=== PATIENT | male | born 1965 | race Caucasian/White ===

== ENCOUNTER 2023-02-07 12:18 | Emergency (ER) | payer MEDICAID, SELFPAY ==
[2023-02-07 12:31] VITALS: BP 155/68; PULSE 61; RESP 18; TEMP 36.7; O2SAT 97; BMI 27.2
--- NOTE | 2023-02-07 12:40 | ED_ITS ---
Documented by User: NUHA Glez 02/08/23 07:11 HPI - General Adult General: Chief complaint: General Medical Stated complaint: Just needs meds refilled Time Seen by Provider: 02/07/23 12:39 History of Present Illness: Patient is a 57-year-old male comes to the ED in need of medication refill. Patient is from [facility] but just moved to the area. He ran out of his Xarelto prescription and needs a refill. Patient says his last dose of Xarelto was taken on Sunday so this is the second day he is went without Xarelto. He has not gotten established with a PCP here since moving. Patient also states that he has chronic wounds on his legs bilaterally that he has been having wound care clinic up in [facility] had been treating for years. Denies any fevers, chest pain, shortness of breath or any change in chronic leg wounds. Endorses some bilateral lower leg swelling. Denies any current symptoms. Associated symptoms: Deny chest pain, dyspnea, headache(s), nausea, rash, palpitations or vomiting Review of Systems Const: Denies: fever(s), chills or fatigue Eyes: Denies: change in vision or eye discomfort ENMT: Denies: throat pain, odynophagia, nasal discharge or nasal congestion Card: Denies: chest pain, palpitations, edema, swelling of feet/ankles, dyspnea on exertion or orthopnea Resp: Denies: dyspnea, productive cough or non-productive cough GI: Denies: abdominal pain, nausea, vomiting, diarrhea, constipation or hematochezia : Denies: flank pain, difficulty urinating, dysuria or hematuria Musc: Reports: extremity swelling (Bilateral lower leg swelling); Denies: neck pain or back pain Skin/Breast: Denies: rash or new lesions Neuro: Denies: headache(s), numbness in extremities or weakness in extremities PFS ED PFSH: Medical History (Updated 02/08/23 @ 07:11 by NUHA Glez) CHF (congestive heart failure) Hypertension No pertinent family history Physical Exam Const: COMMON NORMALS: patient oriented x3 HENMT: COMMON NORMALS: normocephalic HEAD & SCALP: normocephalic MOUTH: Normal oral and palatal mucosa present THROAT: posterior oropharynx normal and uvula midline Neck/C-Spine: COMMON NORMALS: supple GENERAL: Yes normal visual inspection Resp: COMMON NORMALS: normal respiratory effort, No retractions, No use of accessory muscles and clear to auscultation bilaterally AUSCULTATION: clear to auscultation bilaterally Cardio: COMMON NORMALS: regular rate, regular rhythm, S1 normal heart sound present, S2 normal heart sound present, No gallops present (Cardio), No clicks present (Cardio), No murmurs present (Cardio) and Peripheral pulses 2+ throughout RATE: regular rate RHYTHM: regular rhythm HEART SOUNDS: S1 normal heart sound present and S2 normal heart sound present PERIPHERAL PULSES: Peripheral pulses 2+ throughout GI: COMMON NORMALS: Normal to inspection, nondistended, normoactive bowel sounds present, Soft to palpation, non-tender and no masses PALPATION: Yes Soft to palpation : COMMON NORMALS: Yes no CVA tenderness BLADDER/KIDNEY EXAM: Yes no CVA tenderness Back/Pelvis: COMMON NORMALS: no CVA tenderness Extremity: NARRATIVE EXTREMITY EXAM: Patient has chronic ulcerative type wounds on legs bilaterally. GENERAL: Yes edema (Bilateral lower extremity edema) Neuro: COMMON NORMALS: patient oriented x3 GAIT: Yes Normal gait present Skin: GENERAL SKIN EXAM: dry skin Course Vital Signs: Vital signs: Vital Signs Temperature 98.0 F 02/07/23 12:31 Pulse Rate 61 02/07/23 12:31 Respiratory Rate 18 02/07/23 12:31 Blood Pressure 155/68 02/07/23 12:31 Pulse Oximetry 97 02/07/23 12:31 MDM - General Adult Medical Decision Making Patient is a 57-year-old male comes to the ED in need of medication refill. Patient is from [facility] but just moved to the area. He ran out of his Xarelto prescription and needs a refill. Patient says his last dose of Xarelto was taken on Sunday so this is the second day he is went without Xarelto. He has not gotten established with a PCP here since moving. Patient also states that he has chronic wounds on his legs bilaterally that he has been having wound care clinic up in [facility] had been treating for years. Denies any fevers, chest pain, shortness of breath or any change in chronic leg wounds. Endorses some bilateral lower leg swelling. Denies any current symptoms. Vitals are stable. Patient does have some bilateral lower extremity edema along with chronic ulcerated wounds on legs bilaterally. He appears nontoxic in no acute distress or pain. Ultrasound venous duplex of the lower extremity showed some chronic DVTs in the an acute DVT in the popliteal bilaterally. Patient was given Lovenox shot here in the ED and discharged home with this prescription for Eliquis. I placed to case management orders for patient be set up with a PCP since he is new here in town and also to be set up with wound care clinic. Patient diagnosed with encounter for medication refill, DVT and chronic wounds on legs. Return to ED precautions given. Patient understood and agreed with plan. Discharge Plan Discharge Patient Disposition: Home Clinical Impression: Encounter for medication refill, Chronic wound of extremity DVT (deep venous thrombosis) Qualifiers: DVT location: lower extremity Affected thrombotic vein of extremity: popliteal Chronicity: acute Laterality: bilateral Qualified Code(s): I82.433 - Acute embolism and thrombosis of popliteal vein, bilateral Condition: Stable Prescriptions: New Eliquis 5 mg tablet 5 mg PO BID Qty: 60 0RF Rx Instructions: Take 2 tablets p.o. twice daily for 7 days. Then 1 tab PO BID. Discharge Orders: Discharge ED (Routine); Ordered 02/07/23 Ordered By: Kyler Yun Discharge Diet: Regular Discharge Activity: Increase activity as tolerated Patient Instructions: Deep Vein Thrombosis (DC) Activity Restrictions/Additional Instructions: Follow-up with medical provider as directed. Case management should be contacted in the next several days to set up an appointment with a primary care physician and wound care clinic. You can start taking your prescribed Eliquis tomorrow since you received a shot of Lovenox today in the emergency department. Take medications as prescribed. Return to the ER or your medical provider if condition worsens. Please read and understand discharge instructions. Thank you for choosing [facility] for your healthcare needs today. Please realize this is an emergency room and that we are providing you with a medical screening exam and this may not be complete and all inclusive of all the testing and or work up that you may need to determine your ailment or severity of your illness. It is very important that you follow up as instructed or that you return to the Emergency Department should you have concerns or if your condition changes or worsens in any way. Coding Level of Care Code ED Rig Superintendent for Cecily Wood Documented by User: Carlos Alberto Gómez DO 02/08/23 08:27 HPI - General Adult General: Chief complaint: General Medical Stated complaint: Just needs meds refilled Time Seen by Provider: 02/07/23 12:39 PFSH ED PFSH: Medical History (Updated 02/08/23 @ 07:11 by NUHA Glez) CHF (congestive heart failure) Hypertension No pertinent family history Course Vital Signs: Vital signs: Vital Signs Temperature 98.0 F 02/07/23 12:31 Pulse Rate 61 02/07/23 12:31 Respiratory Rate 18 02/07/23 12:31 Blood Pressure 155/68 02/07/23 12:31 Pulse Oximetry 97 02/07/23 12:31 MDM - General Adult Medical Decision Making Patient is a 57-year-old male comes to the ED in need of medication refill. Patient is from [facility] but just moved to the area. He ran out of his Xarelto prescription and needs a refill. Patient says his last dose of Xarelto was taken on Sunday so this is the second day he is went without Xarelto. He has not gotten established with a PCP here since moving. Patient also states that he has chronic wounds on his legs bilaterally that he has been having wound care clinic up in [facility] had been treating for years. Denies any fevers, chest pain, shortness of breath or any change in chronic leg wounds. Endorses some bilateral lower leg swelling. Denies any current symptoms. Vitals are stable. Patient does have some bilateral lower extremity edema along with chronic ulcerated wounds on legs bilaterally. He appears nontoxic in no acute distress or pain. Ultrasound venous duplex of the lower extremity showed some chronic DVTs in the an acute DVT in the popliteal bilaterally. Patient was given Lovenox shot here in the ED and discharged home with this prescription for Eliquis. I placed to case management orders for patient be set up with a PCP since he is new here in town and also to be set up with wound care clinic. Patient diagnosed with encounter for medication refill, DVT and chronic wounds on legs. Return to ED precautions given. Patient understood and agreed with plan. Chart reviewed and patient discussed with midlevel. Agree with assessment and plan. Discharge Plan Discharge Patient Disposition: Home Clinical Impression: Encounter for medication refill, Chronic wound of extremity DVT (deep venous thrombosis) Qualifiers: DVT location: lower extremity Affected thrombotic vein of extremity: popliteal Chronicity: acute Laterality: bilateral Qualified Code(s): I82.433 - Acute embolism and thrombosis of popliteal vein, bilateral Condition: Stable Prescriptions: New Eliquis 5 mg tablet 5 mg PO BID Qty: 60 0RF Rx Instructions: Take 2 tablets p.o. twice daily for 7 days. Then 1 tab PO BID. Discharge Orders: Discharge ED (Routine); Ordered 02/07/23 Ordered By: Kyler uYn Discharge Diet: Regular Discharge Activity: Increase activity as tolerated Patient Instructions: Deep Vein Thrombosis (DC) Activity Restrictions/Additional Instructions: Follow-up with medical provider as directed. Case management should be contacted in the next several days to set up an appointment with a primary care physician and wound care clinic. You can start taking your prescribed Eliquis tomorrow since you received a shot of Lovenox today in the emergency department. Take medications as prescribed. Return to the ER or your medical provider if condition worsens. Please read and understand discharge instructions. Thank you for choosing [facility] for your healthcare needs today. Please realize this is an emergency room and that we are providing you with a medical screening exam and this may not be complete and all inclusive of all the testing and or work up that you may need to determine your ailment or severity of your illness. It is very important that you follow up as instructed or that you return to the Emergency Department should you have concerns or if your condition changes or worsens in any way. Coding Level of Care Code ED Rig Superintendent for Cecily Wood
--- NOTE | 2023-02-07 13:07 | USCV_ITS ---
Andrew Ruggiero Age: 57 Gender: M : 1965 Exam Date: 02/07/2023 14:00 Ordering Phys: Kyler Yun Technologist: CT Exam Location: [facility]_ Indication: hx of dvt, swelling PROCEDURES: The venous duplex Doppler examination of both lower extremities was performed in the standard fashion. In addition, the posterior tibial and peroneal trunk were evaluated. FINDINGS: Evidence of acute bilateral occlusive deep vein thrombosis in the right popliteal vein into the peroneal veins with abnormal flow dynamics. The remaining deep venous systems are negative. Bilateral superficial thrombophlebitis GSV's. Wall thickening with small caliber lumen. Chronic thrombophlebitis. CONCLUSIONS Acute, occlusive bilateral DVT popliteal and peroneal veins. Probable chronic superficial thrombophlebits bilateral GSV's. Dr. Viola Saenz DO (Electronically Signed) Final Date: 07 Feb 2023 15:41 S
--- NOTE | 2023-02-07 15:15 | PC.NURSE ---
Patient seen in the ED on 02/07/23. Referral to wound care for bilateral wounds on legs. Message sent to clinic to contact patient for an appt.
[2023-02-07] MEDS: enoxaparin 120 mg/0.8 mL Syringe SUBCUT (16:21)
--- NOTE | 2023-02-08 10:06 | DCPLANNER ---
Addendum entered by Nicolette Valladares 02/19/23 11:02: Patient had a follow up appointment at wound care - patient did attend appointment. Addendum entered by Nicolette Valladares 02/09/23 10:10: Patient has a follow up appointment scheduled for Sunday, February 14, 2023 at 2:[address] Griffin at [facility]. Original Note: client service and consulting manager called patient due to no primary care physician. Patient would like help in getting established with a primary care physician but states that his aunt is going to help him get established with a provider.
== END 2023-02-07 16:37 | disposition home or self-care (01) ==
PROVIDERS: Emergency Provider Physician Assistant
DX: Z76.0 Encounter for issue of repeat prescription (principal); L97.929 Non-pressure chronic ulcer of unspecified part of left lower leg with unspecified severity; L97.919 Non-pressure chronic ulcer of unspecified part of right lower leg with unspecified severity; I82.433 Acute embolism and thrombosis of popliteal vein, bilateral; I82.453 Acute embolism and thrombosis of peroneal vein, bilateral
CPT/HCPCS: 93970; 96372; 99284; J1650

== ENCOUNTER → 2023-02-23 10:08 | Outpatient (BNVA) | payer MEDICAID, SELFPAY | PROVIDERS: Visit Provider Thoracic Surgery (Cardiothoracic Vascular Surgery) | DX: E11.52 Type 2 diabetes mellitus with diabetic peripheral angiopathy with gangrene (principal); E11.622 Type 2 diabetes mellitus with other skin ulcer; L97.812 Non-pressure chronic ulcer of other part of right lower leg with fat layer exposed; L97.822 Non-pressure chronic ulcer of other part of left lower leg with fat layer exposed | CPT/HCPCS: 11042; 11045 ==

== ENCOUNTER 2023-02-28 07:33 | Inpatient (IN) | payer MEDICAID, SELFPAY ==
[2023-02-28] VITALS (78 sets, daily range): BP systolic 68–137; BP diastolic 46–112; PULSE 74–169; RESP 6–63; TEMP 36.2–37.9; O2SAT 70–100; BMI 26.6
--- NOTE | 2023-02-28 07:44 | ECG_ITS ---
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 Measurements Intervals [place] Rate: 116 P: 0 TX: 0 QRS: 61 QRSD: 152 T: 243 QT: 341 QTc: 475 Interpretive Statements ATRIAL FIBRILLATION WITH RAPID VENTRICULAR RESPONSE LEFT BUNDLE BRANCH BLOCK [120+ ms QRS DURATION, 80+ ms Q/S IN V1/V2, 85+ ms R IN I/aVL/V5/V6] No previous ECG available for comparison Electronically Signed On 02-28-2023 12:28:55 CDT by Ismael Sue M.D. [id number]
--- NOTE | 2023-02-28 08:09 | XRR_ITS ---
PROCEDURE INFORMATION: Exam: XR Chest Exam date and time: 02/28/2023 8:15 AM Age: 57 years old Clinical indication: Cough and dyspnea; Prior surgery; Surgery date: 6+ months; Surgery type: Pacer; Additional info: Dyspnea/cough TECHNIQUE: Imaging protocol: Radiologic exam of the chest. Views: 1 view. COMPARISON: No relevant prior studies available. FINDINGS: Tubes, catheters and devices: AICD. Lungs: Hypoinflation, without significant airspace disease. Pleural spaces: Mild pleural thickening. Heart/Mediastinum: Borderline cardiomegaly. Bones/joints: Mild degenerative change. XR/XR chest 1V portable [id number] IMPRESSION: Borderline cardiomegaly and AICD.
[2023-02-28] MEDS: metoprolol succinate ER (24 HR) 50 mg Tablet PO ×2 (08:20→11:04)
[2023-02-28] MEDS: metoprolol tartrate 1 mg/1 mL SDV 5 mL 5 MG IVP ×2 (08:20→11:04)
--- NOTE | 2023-02-28 08:30 | PC.PHAR ---
pt states his aunt alondra [phone] sets his medications up-pt brought in medication bottles with him pt brought in metoprolol succinate er 100mg take 50mg bid dated 11/08/22 and also another bottle dated 06/16/22 200mg daily and someone wrote bid on the bottle alondra states the pt is taking the 50mg bid-rx bottle dated 01/23/23 lasix 40mg takes 80mg qam and 40mg afternoon alondra states she sets it up as 40mg qam and 80mg hs-midodrine 10mg take 5mg tid dated 11/08/22 and spironolactone 25mg daily dated 06/13/22 were empty but alondra states pt is still taking-notes are made in the pharmacy comments
[2023-02-28 09:50] LABS: Alanine Aminotransferase 11 U/L (0-41); Albumin Level 3.1 g/dL (3.5-5.2); Alkaline Phosphatase 60 U/L (40-130); Blood Urea Nitrogen 14 mg/dL (6-20); Calcium 8.2 mg/dL (8.5-10.5); Carbon Dioxide 15 mmol/L (22-29); Chloride 105 mmol/L (98-107); Globulin 4.2 g/dL (1.3-4.6); Glucose 135 mg/dL (65-115); NT Pro B Type Natriuretic Pept 4271 pg/mL (0-125); Osmolality Calculated 279 mOsm/kg (285-295); Sodium 133 mmol/L (136-145); Total Bilirubin 0.6 mg/dL (0.15-1.2); Total Protein 7.3 g/dL (6.6-8.7)
[2023-02-28 09:52] LABS: Aspartate Amino Transferase 19 U/L (0-40)
--- NOTE | 2023-02-28 10:24 | W.ED.ARRPALP ---
HPI - Arrhythmia/Palpitations General: Chief Complaint: ER Hold Stated Complaint: unresponsive now responsive Time Seen by Provider: 02/28/23 07:46 Source: patient Mode of arrival: EMS History of Present Illness: 57-year-old male who presents to the emergency room with complaints of syncopal episode. He gotten up and began trying to walk he states his legs felt really weak. Patient fell and was reported as unresponsive. He was unresponsive when EMS initially arrived but then began responding. They noted he was in A-fib with RVR and he was given 20 mg of Cardizem his heart rate dropped he was given another dose of IV push Cardizem 15 minutes later due to recurrence of A-fib with RVR on arrival here he is still moderately tachycardic in the 120s and 130s occasionally. Patient states he has no chest pain or shortness of breath he does not recall feeling a shock. He is awake and alert. He did not take any of his medications today he has multiple medications in a bag we had difficult time confirming what his dose actually is 1 metoprolol bottle says 200 twice a day he states he is actually been taking half of 100 mg tablet twice a day. MD complaint: rapid heart beat and heart racing Associated symptoms: Reports syncope; Deny anxiety, cough, diaphoresis, muscle cramps, nausea, paresthesias, pre-syncope, sense of impending doom, short of breath or vomiting Review of Systems Const: Denies: fever(s), chills, fatigue, malaise or diaphoresis ENMT: Denies: throat pain, ear or mastoid pain, nasal discharge or nasal congestion Card: Reports: palpitations, irregular heart rhythm, edema, swelling of feet/ankles and syncope; Denies: chest pain or pre-syncope Resp: Denies: dyspnea, productive cough or non-productive cough GI: Denies: abdominal pain, nausea or vomiting : Denies: flank pain, dysuria, urinary frequency or urinary urgency Musc: Denies: neck pain, back pain or muscle cramps Skin/Breast: Reports: non-healing lesions (Bilateral lower extremity ulcers chronic); Denies: rash or pruritus Psych: Denies: anxiety PFSH ED PFSH: Medical History Atrial fibrillation CHF (congestive heart failure) Hypertension No pertinent family history Non-insulin dependent type 2 diabetes mellitus Peripheral vascular disease Surgical History History of implantable cardioverter-defibrillator (ICD) placement Family History Mother CAD (coronary artery disease) Social History Smoking and tobacco status: former smoker Alcohol intake: current Substance/Drug Use: current Substance/Drug use type: Marijuana Physical Exam Const: GENERAL APPEARANCE: cooperative and comfortable ORIENTATION/CONSCIOUSNESS: Yes awake, Yes oriented to person, Yes oriented to place and Yes oriented to time HENMT: COMMON NORMALS: normocephalic, atraumatic and hearing grossly normal bilaterally HEAD & SCALP: normocephalic and atraumatic Resp: COMMON NORMALS: normal respiratory effort, No retractions, No use of accessory muscles and clear to auscultation bilaterally AUSCULTATION: clear to auscultation bilaterally Cardio: RATE: tachycardic RHYTHM: abnormal rhythm irregularly irregular GI: COMMON NORMALS: Soft to palpation and No hepatosplenomegaly present AUSCULTATION: Yes normoactive bowel sounds PALPATION: Yes Soft to palpation, No Tenderness to palpation present (GI), No Guarding due to palpation present (GI) and Yes No hepatosplenomegaly present Extremity: COMMON NORMALS: normal to inspection, capillary refill normal, no clubbing, cyanosis or edema, no calf tenderness and no pedal edema Neuro: SENSORIUM/ORIENTATION: Yes oriented to person, Yes oriented to place and Yes oriented to time Skin: COMMON NORMALS: no rashes or lesions noted GENERAL SKIN EXAM: no rashes or lesions noted Course Vital Signs: Vital signs: Vital Signs Temperature 97.7 F 02/28/23 07:34 Pulse Rate 128 H 02/28/23 13:15 Respiratory Rate 26 H 02/28/23 13:15 Blood Pressure 88/60 02/28/23 13:15 Pulse Oximetry 100 02/28/23 13:15 Oxygen Delivery Me thod Room Air 02/28/23 13:13 MDM - Arrhythmia/Palpitations Medical Decision Making Serial troponins negative BNP elevated. Patient continues to have A-fib but rate still elevated. Bundle branch block on EKG. No recent EKGs there is one from 2011 he is not in A-fib at that time. He is not having any chest pain. Patient not taking his usual medications at home there are some question as to what doses he was asked on could not really give us clarification. Gave him IV metoprolol and a dose of his metoprolol succinate we monitored him for a time he did not have any significant lowering of his heart rate. He had been given Cardizem IV push in the field and had significant hypotension develop from that. I repeated the IV and p.o. metoprolol without significant improvement and started on a Cardizem drip without bolus. Better control role of rate was achieved. He currently is having rates around 110s at times slightly higher with any activity. Leg ulcers appear chronic, do not appear to be acutely infected. Patient has ICD we are currently awaiting identifying which manufacture he has. Interrogation planned. Will admit. Discussed with hospitalist orders written. Medical Records I reviewed the patient's medical records. Lab Data I reviewed the patient's lab results. 02/28/23 10:25 02/28/23 09:03 Radiology Impressions Chest X-Ray 02/28/23 08:09 IMPRESSION: Borderline cardiomegaly and AICD. Laboratory Results WBC 8.9 10^3/uL (4.0-10.0) 02/28/23 10:25 RBC 4.89 10^6/uL (4.1-5.3) 02/28/23 10:25 Hgb 13.3 g/dL (11.7-16.6) 02/28/23 10:25 Hct 42.0 % (42.0-52.0) 02/28/23 10:25 MCV 85.9 fl (80-94) 02/28/23 10:25 MCH 27.2 pg (28.0-34.0) L 02/28/23 10:25 MCHC 31.7 g/dL (30.0-36.0) 02/28/23 10:25 RDW 12.1 % (12.1-15.1) 02/28/23 10:25 Plt Count 197 10^3/cmm (130-400) 02/28/23 10:25 MPV 10.6 fL (7.4-10.4) H 02/28/23 10:25 Neut % (Auto) 72.9 % 02/28/23 10:25 Lymph % (Auto) 20.4 % 02/28/23 10:25 [place] % (Auto) 4.4 % 02/28/23 10:25 Eos % (Auto) 1.4 % 02/28/23 10:25 Baso % (Auto) 0.6 % 02/28/23 10:25 Neut # (Auto) 6.46 10^3/uL (1.8-7.7) 02/28/23 10:25 Lymph # (Auto) 1.8 10^3/uL (0.8-4.8) 02/28/23 10:25 [place] # (Auto) 0.4 10^3/uL (0.2-0.9) 02/28/23 10:25 Eos # (Auto) 0.1 10^3/uL (0.0-0.8) 02/28/23 10:25 Baso # (Auto) 0.1 10^3/uL (0.0-0.1) 02/28/23 10:25 Nucleated RBC % (auto) 0 % 02/28/23 10:25 Nucleated RBCs # 0.0 /100WBC 02/28/23 10:25 PT 14.80 SECONDS (12.1-14.9) 02/28/23 10:25 INR 1.13 (0.8-1.2) 02/28/23 10:25 Sodium 133 mmol/L (136-145) L 02/28/23 09:03 Potassium 4.0 mmol/L (3.5-5.1) 02/28/23 09:03 Chloride 105 mmol/L (98-107) 02/28/23 09:03 Carbon Dioxide 15 mmol/L (22-29) L 02/28/23 09:03 Anion Gap 17.0 (5-19) 02/28/23 09:03 BUN 14 mg/dL (6-20) 02/28/23 09:03 Creatinine 0.8 mg/dL (0.7-1.2) 02/28/23 09:03 GFR Calculation 100.0 mL/min (90-130) 02/28/23 09:03 Glucose 135 mg/dL (65-115) H 02/28/23 09:03 Estimat Average Glucose 137 02/28/23 10:25 Hemoglobin A1c 6.4 % (4.0-6.0) H 02/28/23 10:25 Calculated Osmolality 279 mOsm/kg (285-295) L 02/28/23 09:03 Lactic Acid 1.1 mmol/L (0.5-2.2) 02/28/23 10:25 Calcium 8.2 mg/dL (8.5-10.5) L 02/28/23 09:03 Magnesium 1.6 mg/dL (1.7-2.3) L 02/28/23 10:25 Total Bilirubin 0.6 mg/dL (0.15-1.2) 02/28/23 09:03 AST 19 U/L (0-40) 02/28/23 09:03 ALT 11 U/L (0-41) 02/28/23 09:03 Alkaline Phosphatase 60 U/L (40-130) 02/28/23 09:03 Troponin T Baseline 27 ng/L (0-15) H 02/28/23 10:25 NT-Pro-B Natriuret Pep 4271 pg/mL (0-125) H 02/28/23 09:03 Total Protein 7.3 g/dL (6.6-8.7) 02/28/23 09:03 Albumin 3.1 g/dL (3.5-5.2) L 02/28/23 09:03 Globulin 4.2 g/dL (1.3-4.6) 02/28/23 09:03 Triglycerides 52 mg/dL (0-150) 02/28/23 10:25 Cholesterol 60 mg/dL (0-200) 02/28/23 10:25 LDL Cholesterol, Calc 28 mg/dL (50-129) L 02/28/23 10:25 HDL Cholesterol 22 mg/dL (60-100) L 02/28/23 10:25 LDL/HDL Ratio 1.27 RATIO (0.00-3.22) 02/28/23 10:25 Cholesterol/HDL Ratio 2.73 mg/dL (1.0-5.00) 02/28/23 10:25 Procalcitonin 0.07 ng/mL (0-0.5) 02/28/23 10:25 TSH 3.59 uIU/mL (0.27-4.20) 02/28/23 10:25 Urine Color Yellow (Yellow) 02/28/23 09:09 Urine Appearance Clear (CLEAR) 02/28/23 09:09 Urine pH 5 (5-7) 02/28/23 09:09 Ur Specific [place] 1.020 (1.005-1.030) 02/28/23 09:09 Urine Protein Trace (Negative) 02/28/23 09:09 Urine Glucose (UA) Norm (Normal) 02/28/23 09:09 Urine Ketones 1+ (Negative) H 02/28/23 09:09 Urine Blood Trace (Negative) H 02/28/23 09:09 Urine Nitrate Negative (Negative) 02/28/23 09:09 Urine Bilirubin Neg (Negative) 02/28/23 09:09 Urine Urobilinogen 1 mg/dL (Negative) H 02/28/23 09:09 Ur Leukocyte Esterase Negative (Negative) 02/28/23 09:09 Urine RBC None /hpf (0-2) 02/28/23 09:09 Urine WBC Rare /hpf (0-5) 02/28/23 09:09 Ur Squamous Epith Cells Rare /hpf (0-5) 02/28/23 09:09 Amorphous Sediment Not Reportable 02/28/23 09:09 Urine Bacteria 1+ /hpf (NONE) H 02/28/23 09:09 Hyaline Casts 0-4 /lpf H 02/28/23 09:09 Fine Granular Casts 0-4 /lpf H 02/28/23 09:09 Urine Mucus 2+ /hpf 02/28/23 09:09 Ethyl Alcohol < 10 mg/dL (0-10) 02/28/23 10:25 Discharge Plan Discharge Patient Disposition: Admitted As Inpatient Admit Provider: Davey Chaney Clinical Impression: Atrial fibrillation with RVR, Syncope and collapse, Diabetic leg ulcer Condition: Stable Coding Level of Care Code ED Emergency Room Technician for Cecily Wood
[2023-02-28 10:30] LABS: Urine Appearance Clear (CLEAR); Urine Color Yellow (Yellow)
[2023-02-28 10:31] LABS: Add Urine Microscopic? YES; Bilirubin Urine Neg (Negative); Blood Urine Trace (Negative); Glucose Urine UA Norm (Normal); Ketones Urine 1+ (Negative); Leukocyte Esterase Urine Negative (Negative); Nitrate Urine Negative (Negative); Protein Urine Trace (Negative); Urobilinogen Urine 1 mg/dL (Negative); pH Urine 5 (5-7)
[2023-02-28 10:32] LABS: Add Urine Culture? No; Bacteria Urine 1+ /hpf; Fine Granular Casts Urine 0-4 /lpf; Hyaline Casts Urine 0-4 /lpf; Mucus Urine 2+ /hpf; Squamous Epithelial Cell Urine RARE /hpf (0-5); WBC Urine RARE /hpf (0-5)
[2023-02-28 10:42] LABS: Basophils # 0.1 10^3/uL (0.0-0.1); Basophils % 0.6 %; Eosinophils # 0.1 10^3/uL (0.0-0.8); Eosinophils % 1.4 %; Hemoglobin 13.3 g/dL (11.7-16.6); Lymphocytes # 1.8 10^3/uL (0.8-4.8); Lymphocytes % 20.4 %; Mean Corpuscular HGB Conc 31.7 g/dL (30.0-36.0); Mean Corpuscular Hemoglobin 27.2 pg (28.0-34.0); Mean Corpuscular Volume 85.9 fl (80-94); Mean Platelet Volume 10.6 fL (7.4-10.4); Monocytes # 0.4 10^3/uL (0.2-0.9); Monocytes % 4.4 %; Neutrophils # 6.46 10^3/uL (1.8-7.7); Neutrophils % 72.9 %; Nucleated Red Blood Cells % 0 %; Platelet Count 197 10^3/cmm (130-400); Red Blood Count 4.89 10^6/uL (4.1-5.3); Red Cell Distribution Width 12.1 % (12.1-15.1); White Blood Count 8.9 10^3/uL (4.0-10.0)
[2023-02-28] MEDS: dilTIAZem 100 MG in sodium chloride 0.9% (add-van) 100 ML IV ×2 (11:05→19:00)
--- NOTE | 2023-02-28 11:08 | ECG_ITS ---
[facility] Test Date: 2023-02-28 Pat Name: Andrew Ruggiero Department: Room: Gender: Male Associate Director Of Sales: : 1965 Requested By: Davey Chaney Order Number: [id number] Wilner MD: Ismael Sue M.D. Measurements Intervals [place] Rate: 134 P: 0 MA: 0 QRS: 50 QRSD: 156 T: 214 QT: 347 QTc: 519 Interpretive Statements ATRIAL FIBRILLATION WITH RAPID VENTRICULAR RESPONSE LEFT BUNDLE BRANCH BLOCK [120+ ms QRS DURATION, 80+ ms Q/S IN V1/V2, 85+ ms R IN I/aVL/V5/V6] Compared to ECG 02/28/2023 07:41:04 No significant changes Electronically Signed On 02-28-2023 12:28:36 CDT by Ismael Sue M.D. [id number]
--- NOTE | 2023-02-28 11:13 | USCV_ITS ---
Andrew Ruggiero Age: 57 Gender: M : 1965 Exam Date: 02/28/2023 22:52 Ordering Phys: Davey Chaney MD Technologist: NEGIN [place] [facility] [place]: Atrial fibrillation with RVR in ER. s/p PICC line. No BP on monitor in ICU5, [facility], unresponsive BP: / HR: 76 Rhythm: Sinus Technical Quality: Adequate MEASUREMENTS (Male / Female) Normal Values 2D ECHO LV Diastolic Diameter PLAX 5.2 cm 4.2 - 5.9 / 3.9 - 5.3 cm LV Systolic Diameter PLAX 4.9 cm IVS Diastolic Thickness 1.6 cm 0.6 - 1.0 / 0.6 - 0.9 cm IVS Systolic Thickness 1.8 cm LVPW Diastolic Thickness 1.2 cm 0.6 - 1.0 / 0.6 - 0.9 cm LVPW Systolic Thickness 1.3 cm LVOT Diameter 2.2 cm LV Ejection Fraction 2D Teich 14.4 % LV Ejection Fraction MOD 2C 28.7 % LV Ejection Fraction 2C AL 30.6 % LA Diameter 4.4 cm LA Width 5.3 cm LA Height 6.7 cm RA Width 3.2 cm RA Height 4.1 cm Aorta at Sinotubular Diameter 2.5 cm IVC Diameter 2.4 cm M-MODE Aortic Annulus Diameter 3.2 cm LA Ao Ratio MM 1.4 MV E Point Septal Separation 3.0 cm DOPPLER AV Peak Velocity 110.0 cm/s LVOT Peak Velocity 98.0 cm/s AV Area Cont Eq vti 3.3 cm squared AV Area Cont Eq pk 3.3 cm squared MV Peak Velocity 104.0 cm/s MV Area PHT 3.3 cm squared Mitral E to A Ratio 0.8 MV E' Velocity 40.5 cm/s Mitral E to MV E' Ratio 21.2 Mitral E to LV E' Lateral Ratio 17.0 Mitral E to LV E' Septal Ratio 29.4 TR Peak Velocity 284.7 cm/s TR Peak Gradient 32.4 mmHg TV Peak E Velocity 35.0 cm/s Right Atrial Pressure 10.0 mmHg Pulmonary Artery Systolic Pressu 42.4 mmHg PV Peak Velocity 53.0 cm/s RV Acceleration Time 0.1 s RV Ejection Time 0.3 s RV AcT/ET 0.4 FINDINGS Left Ventricle Left ventricle is dilated. LV systolic function is severely reduced with EF of 15-20%. Severe global hypokinesis seen. Grade 1 diastolic dysfunction Right Ventricle RV is moderate to severely hypokinetic.Pacemaker lead is seen Right Atrium The right atrium is normal in size. Pacemaker lead is seen Left Atrium Dilated Mitral Valve Grossly normal. Mild mitral regurgitation. Aortic Valve Grossly normal. No significant stenosis or regurgitation. Tricuspid Valve Mild tricuspid regurgitation. RVSP is 35-40mmHg. This is consistent with moderate pulmonary hypertension. Pulmonic Valve Not well visualized Pericardium Normal pericardium without effusion. Aorta Normal ascending aorta dimension. IVC Dilated CONCLUSIONS Left ventricle is dilated. LV systolic function is severely reduced with EF of 15-20%. RV is moderate to severely hypokinetic. Dilated Mild mitral regurgitation. Mild tricuspid regurgitation moderate pulmonary hypertension. IVC is dilated No comparison studies are available Ismael Sue MD (Electronically Signed) Final Date: 01 March 2023 18:45 S
[2023-02-28 11:40] LABS: INR 1.13 (0.8-1.2)
[2023-02-28 11:41] LABS: Glucose Point of Care 123 mg/dL (70-110)
[2023-02-28 11:41] LABS: Lactic Sepsis W/Reflex 1.1 mmol/L (0.5-2.2)
[2023-02-28 11:46] LABS: Troponin(5th) Baseline 27 ng/L (0-15)
[2023-02-28 11:52] LABS: Estmated Average Glucose 137; Hemoglobin A1C 6.4 % (4.0-6.0)
[2023-02-28 11:54] LABS: Procalcitonin 0.07 ng/mL (0-0.5); Thyroid Stimulating Hormone 3.59 uIU/mL (0.27-4.20)
[2023-02-28 12:04] LABS: Chol HDL Ratio 2.73 mg/dL (1.0-5.00); Cholesterol 60 mg/dL (0-200); HDL Cholesterol 22 mg/dL (60-100); LDL Cholesterol Calculated 28 mg/dL (50-129); LDL HDL Ratio 1.27 RATIO (0.00-3.22); Magnesium 1.6 mg/dL (1.7-2.3); Triglycerides 52 mg/dL (0-150)
[2023-02-28 12:07] LABS: Alcohol Level < 10 mg/dL (0-10)
[2023-02-28 12:31] LABS: Troponin 5 2HR 26.04 ng/L (0-15); Troponin 5 2HR Delta -0.96 ABS# (0-10)
--- NOTE | 2023-02-28 12:55 | PM.HP ---
Providers/Chief Complaint Admitting Physician: Davey Chaney MD Chief Complaint: unresponsive now responsive History of Present Illness Andrew Ruggiero is a 57 year old male with a past medical history of CHF, systolic, ICD in place, denies a history of CAD, history of atrial fibrillation on Eliquis, history of noninsulin-dependent type 2 diabetes mellitus, smoker, hypertension, hyperlipidemia, on Entresto, history of abdominal wall hernia history of chronic diabetic foot ulcers, history of diabetic neuropathy, who presents to [facility] due to feeling lightheaded and dizzy this morning. He tells me that he is originally from [place], he recently moved to [place] to be with his family for the last month, this morning he tells me that he already has diabetic ulcers on his bilateral shins, but this morning his leg felt weak, more swollen, he felt short of breath, he tells me that at 1 point when he got up he lost consciousness, he thinks he might of had an syncopal episode, but he does not remember the event, denies any chest pain, denies any palpitations, denies his ICD going off, when EMS arrived to his home, he was unresponsive, but began responding, he is found to be in A-fib with RVR, given 20 mg of Cardizem, he was given another IV push of Cardizem, on arrival, patient with heart rates 120s to 130s, atrial fibrillation, he does not remember being shocked, does not remember having chest pain, or palpitations, but does feel short of breath does have lower extremity edema, he is not sure how much metoprolol he is taking there is some discrepancy in how much metoprolol he should be taking. He was started on the Cardizem drip, hospitalist team was called for admission, on arrival, currently patient's systolics are in the 110s, diastolic in 80s, heart rates in the 110s, atrial fibrillation, nursing staff are attempting to interrogate pacemaker, he is alert awake, following all commands, he tells me that roughly a few months ago, his pacemaker did go off, and he remembers that significantly he does not feel like it went off this time, he complains of lower extremity edema, feeling short of breath, he is also hungry he wants to eat something he has not eaten anything this morning he tells me Review of Systems Const: Denies: fever(s) or chills Eyes: Denies: change in vision ENMT: Denies: throat pain Card: Denies: chest pain or palpitations Resp: Reports: dyspnea GI: Denies: abdominal pain : Denies: flank pain Musc: Denies: neck pain or back pain Neuro: Denies: headache(s), numbness in extremities, weakness in extremities or dizziness Medications/Allergies Home Medications Medication Instructions Recorded Confirmed Last Taken Type apixaban 5 mg tablet (Eliquis) 5 mg PO BID #60 tabs 02/07/23 02/28/23 Unknown Rx aspirin 81 mg tablet,delayed 81 mg PO DAILY 02/28/23 02/28/23 Unknown History release atorvastatin 10 mg tablet (Lipitor) 10 mg PO DAILY 02/28/23 02/28/23 Unknown History docusate sodium 100 mg capsule 100 mg PO BID 02/28/23 02/28/23 Unknown History (Stool Softener) furosemide 40 mg tablet (Lasix) See Rx Instructions .Route .COMPLEX 02/28/23 02/28/23 Unknown History metformin 500 mg tablet 500 mg PO BID 02/28/23 02/28/23 Unknown History metoprolol succinate 100 mg 50 mg PO BID 02/28/23 02/28/23 Unknown History tablet,extended release 24 hr midodrine 10 mg tablet 5 mg PO TID 02/28/23 02/28/23 Unknown History potassium chloride 20 mEq 20 meq PO BID 02/28/23 02/28/23 Unknown History tablet,extended release sacubitril 49 mg-valsartan 51 mg 1 tab PO BID 02/28/23 02/28/23 Unknown History tablet (Entresto) spironolactone 25 mg tablet 25 mg PO DAILY 02/28/23 02/28/23 Unknown History Allergies Allergy/AdvReac Type Severity Reaction Status Date / Time No Known Allergies Allergy Verified 02/28/23 07:45 PFSH Acute PFSH: Medical History (Updated 02/28/23 @ 13:15 by Davey Chaney MD) Atrial fibrillation CHF (congestive heart failure) Hypertension No pertinent family history Non-insulin dependent type 2 diabetes mellitus Peripheral vascular disease Surgical History (Updated 02/28/23 @ 13:09 by Davey Chaney MD) History of implantable cardioverter-defibrillator (ICD) placement Family History (Updated 02/28/23 @ 13:09 by Davey Chaney MD) Mother CAD (coronary artery disease) Social History (Updated 02/28/23 @ 13:09 by Davey Chaney MD) Smoking and tobacco status: former smoker Alcohol intake: current Substance/Drug Use: current Substance/Drug use type: Marijuana Vitals/I&O/Wt Last Vital Signs Temp 97.7 F 02/28/23 07:34 Pulse 134 H 02/28/23 11:30 Resp 17 02/28/23 11:30 BP 91/72 02/28/23 11:30 Pulse Ox 91 02/28/23 11:30 O2 Del Method Room Air 02/28/23 09:47 Weight last 48 hrs Weight 77.111 kg Physical Exam Const: COMMON NORMALS: no acute distress and patient oriented x3 GENERAL APPEARANCE: cooperative and well developed HENMT: COMMON NORMALS: normocephalic, Normal external nose present and oropharynx normal HEAD & SCALP: normocephalic FACE & SINUS: normal facial exam MOUTH: Normal oral and palatal mucosa present Eye: COMMON NORMALS: Equal, round and reactive pupils present, EOMs intact bilaterally, conjunctivae normal and no scleral icterus CONJUNCTIVA: Yes conjunctivae normal PUPIL: Yes Equal, round and reactive pupils present Neck/C-Spine: COMMON NORMALS: full ROM, no lymphadenopathy, no meningeal signs, no JVD, Thyroid normal and No carotid bruits THYROID: Thyroid normal Lymph: LYMPHATIC: no lymphadenopathy noted Chest: COMMONS NORMALS: normal inspection of the chest Resp: COMMON NORMALS: normal respiratory effort, No retractions, No use of accessory muscles and clear to auscultation bilaterally AUSCULTATION: crackles Cardio: COMMON NORMALS: S1 normal heart sound present, S2 normal heart sound present and No murmurs present (Cardio) RATE: tachycardic RHYTHM: abnormal rhythm irregularly irregular HEART SOUNDS: S1 normal heart sound present and S2 normal heart sound present GI: COMMON NORMALS: Normal to inspection, nondistended, normoactive bowel sounds present, Soft to palpation and non-tender PALPATION: Yes Soft to palpation and Yes No hepatosplenomegaly present : BLADDER/KIDNEY EXAM: Yes no CVA tenderness Back/Pelvis: COMMON NORMALS: no CVA tenderness Neuro: COMMON NORMALS: patient oriented x3, CN's II-XII intact bilaterally, moves all extremities and no focal motor deficits Psych: COMMON NORMALS: mental status grossly normal, Normal thought process present, cooperative and speech normal APPEARANCE: Yes well kempt SPEECH: Yes normal speech THOUGHT PROCESS: Normal thought process present Skin: COMMON NORMALS: no jaundice NARRATIVE SKIN EXAM: Bilateral shins -Has 1+ pitting edema -Bilateral shins have diabetic ulcers -More on the right measures 3 x 3 cm round, erythematous borders, serosanguineous discharge -The one of the left measures also 3 x 3 cm round, erythematous borders, serosanguineous discharge GENERAL SKIN EXAM: turgor normal Data 02/28/23 10:25 02/28/23 09:03 A&P Assessment and plan (1) Atrial fibrillation with RVR: (2) Syncope and collapse: (3) New onset left bundle branch block (LBBB): (4) Hypomagnesemia: (5) Hyperglycemia: (6) Systolic CHF, acute on chronic: (7) ICD (implantable cardioverter-defibrillator) discharge: (8) NSTEMI (non-ST elevated myocardial infarction): (9) Diabetic leg ulcer: (10) Goals of care, counseling/discussion: Plan A-fib with RVR -I rechecked patient roughly 30 minutes after initially examined him, blood pressures are 80s over 60s, he is alert and awake, heart rates are still in the 120s A-fib, on Cardizem drip at 15 -Stop Cardizem drip -Switch to amiodarone drip -Consulted cardiology Syncope and collapse -With possible ICD defibrillation, will await interrogation Hypomagnesemia -Replace IV mag NSTEMI -Type I versus type II -With new onset left bundle branch block, concerning for underlying CAD -Aspirin, statin, beta-kim -Heparin drip -Cardiac echo -Cardiology consulted New onset left bundle branch block, as above Diabetic leg ulcer -Bilateral diabetic sandoval ulcers -Wound care -Vancomycin, Zosyn -Ordered blood cultures -Consult general surgery for consideration of bedside debridement -We will order vascular studies Type 2 diabetes mellitus A1c, low-dose sliding scale Full code Heparin drip for DVT prophylaxis Spoke to ER doctor, spoke to cardiology, spoke to nursing staff, spoke to patient Attestations Medical Necessity Statement*: Patient requires hospitalization, inpatient, greater than 2 midnights, for A-fib with RVR, possible ICD shock, syncope and collapse, diabetic ulcers, hypomagnesemia Diagnoses Atrial fibrillation with RVR I48.91 Syncope and collapse R55 New onset left bundle branch block (LBBB) I44.7 Hypomagnesemia E83.42 Hyperglycemia R73.9 Systolic CHF, acute on chronic I50.23 ICD (implantable cardioverter-defibrillator) discharge Z45.02 NSTEMI (non-ST elevated myocardial infarction) I21.4 Diabetic leg ulcer E11.622; L97.909 Goals of care, counseling/discussion Z71.89
[2023-02-28] MEDS: FUROsemide 10 mg/mL SDV 4mL 40 MG IVP ×2 (13:04→16:06)
[2023-02-28] MEDS: pantoprazole 40 mg SDV IVP (13:04)
[2023-02-28] MEDS: piperacillin-tazobactam 3.375 GM in sodium chloride 0.9% (plus) 50 ML IV ×2 (13:05→20:58)
[2023-02-28] MEDS: magnesium sulfate premix 2 GM/50 ML PIGGYBACK IV (13:07)
--- NOTE | 2023-02-28 13:08 | ECG_ITS ---
[facility] Test Date: 2023-02-28 Pat Name: Andrew Ruggiero Department: Room: ED Gender: Male Exercise Instruct: : 1965 Requested By: Davey Chaney Order Number: [id number] Wilner MD: Ismael Sue M.D. Measurements Intervals [place] Rate: 131 P: 0 [place]: 0 QRS: 46 QRSD: 157 T: 222 QT: 349 QTc: 517 Interpretive Statements ATRIAL FIBRILLATION WITH RAPID VENTRICULAR RESPONSE LEFT BUNDLE BRANCH BLOCK [120+ ms QRS DURATION, 80+ ms Q/S IN V1/V2, 85+ ms R IN I/aVL/V5/V6] Compared to ECG 02/28/2023 11:33:24 No significant changes Electronically Signed On 02-28-2023 18:20:33 CDT by Ismael Sue M.D. [id number]
[2023-02-28] MEDS: vancomycin 1,250 MG/250 ML PIGGYBACK 250 MG IV (13:39)
--- NOTE | 2023-02-28 14:04 | USR_ITS ---
PROCEDURE INFORMATION: Exam: US Duplex Bilateral Lower Extremity Arteries Exam date and time: 02/28/2023 6:11 PM Age: 57 years old Clinical indication: Pain; Leg, lower; Bilateral; Additional info: Pvd, TECHNIQUE: Imaging protocol: Real-time ultrasound scan of the arteries of the bilateral lower extremities with 2-D bender scale, color Doppler flow and spectral waveform analysis. Images documented and saved. COMPARISON: No relevant prior studies available. FINDINGS: Right common femoral artery: No occlusion or significant stenosis. Normal waveform. PSV 55 cm/s Right superficial femoral artery: No occlusion or significant stenosis. Normal waveform. PSV 54 cm/s Right popliteal artery: No occlusion or significant stenosis. Normal waveform. PSV 22 cm/s Right calf/foot arteries: No occlusion or significant stenosis in the visualized arteries. Normal waveforms. Dorsalis pedis artery is patent. PSV 9.4 cm/s Left common femoral artery: No occlusion or significant stenosis. Normal waveform. PSV 48.7 cm/s Left superficial femoral artery: No occlusion or significant stenosis. Normal waveform. 60 cm/s 27 Left popliteal artery: No occlusion or significant stenosis. Normal waveform. 27 cm/s Left calf/foot arteries: No occlusion or significant stenosis in the visualized arteries. Normal waveforms. Dorsalis pedis artery is patent. PSV 9.4 cm/s, CORDAGE SALES REPRESENTATIVE 14.5 cm/s US/CV arterial duplex [facility] [id number] IMPRESSION: Diffuse severe nonocclusive vascular disease in the bilateral calf vessels bilaterally Otherwise No stenosis or occlusion.
[2023-02-28] MEDS: amiodarone 50 mg/mL SDV 3 mL 150 MG IVP ×2 (14:50→15:09)
[2023-02-28] MEDS: LORazepam 2 mg/mL INJ 1 mL IVP ×2 (15:09→16:06)
[2023-02-28 15:48] LABS: ABG PH Result 7.22 (7.35-7.45); Alveolar-Arterial Oxygen Gradi 23.2 mmHg (5-10); Arterial Blood Gas Hematocrit 54.2 % (42-52); Base Excess ABG -15.1 mmol/L (-2.0-2.0); Blood Gas Allen Test Pos; Blood Gas Operator Identificat AMH; Blood Gas Sample Site Radial, right; Blood Gas Sample Type Arterial; Carboxyhemoglobin 1.1 %THgb (0.4-20.1); HCO3 ABG 10.6 mmol/L (22-26); HGB O2 Sat 89.4 % (95-100); Ionized Calcium Level - ABG 1.2 mmol/L (1.1-1.4); Methemoglobin 0.4 % (0.4-1.5); Oxygen Device BIPAP; Oxygen Saturation ABG 90.8; PO2 ABG 70.5 mmHg (80.0-100.0); Total Hemoglobin 17.7 g/dL (14-18)
[2023-02-28] MEDS: haloperidol inj 5 mg/mL INJ 1 mL 1 MG IVP (16:06)
[2023-02-28] MEDS: levalbuterol 0.63 mg/3 mL Neb INHALATION (17:04)
[2023-02-28 17:06] LABS: Troponin 5 6HR 43.63 ng/L (0-15)
--- NOTE | 2023-02-28 17:08 | ECG_ITS ---
[facility] Test Date: 2023-02-28 Pat Name: Andrew Ruggiero Department: Room: [facility] Gender: Male Joy Loader: : 1965 Requested By: Davey Chaney Order Number: [id number] Wilner MD: Ismael Sue M.D. Measurements Intervals [place] Rate: 103 P: 66 SC: 143 QRS: 16 QRSD: 126 T: 100 QT: 368 QTc: 483 Interpretive Statements ELECTRONIC VENTRICULAR PACEMAKER Compared to ECG 02/28/2023 13:14:59 Atrial fibrillation no longer present Left bundle-branch block no longer present Electronically Signed On 02-28-2023 18:19:57 CDT by Ismael Sue M.D. [id number]
[2023-02-28 17:15] LABS: Troponin 5 6HR Delta 16.63 ng/L (0-12)
--- NOTE | 2023-02-28 17:20 | PM.CONSULT ---
Providers/Reason For Consult Consulting Physician/Specialty*: Ismael Sue MD/ Cardiology Reason for Consult*: Afib with RVR Requesting Physician: Dr Chaney Attending Physician: Davey Chaney MD History of Present Illness History of Present Illness Andrew Ruggiero is a 57 year old male with past medical history of congestive heart failure, afib presented to hospital with dizziness and lightheadedness. Patient also had shortness of breath. He was found to have A-fib with RVR. He was put on Cardizem drip. He has bilateral sandoval diabetic ulcers also. Review of Systems Const: Denies: fever(s) or chills Eyes: Denies: change in vision ENMT: Denies: throat pain Card: Denies: chest pain or palpitations Resp: Reports: dyspnea GI: Denies: abdominal pain : Denies: flank pain Musc: Denies: neck pain or back pain Neuro: Denies: headache(s), numbness in extremities, weakness in extremities or dizziness Medications/Allergies Home Medications Medication Instructions Recorded Confirmed Last Taken Type apixaban 5 mg tablet (Eliquis) 5 mg PO BID #60 tabs 02/07/23 02/28/23 Unknown Rx aspirin 81 mg tablet,delayed 81 mg PO DAILY 02/28/23 02/28/23 Unknown History release atorvastatin 10 mg tablet (Lipitor) 10 mg PO DAILY 02/28/23 02/28/23 Unknown History docusate sodium 100 mg capsule 100 mg PO BID 02/28/23 02/28/23 Unknown History (Stool Softener) furosemide 40 mg tablet (Lasix) See Rx Instructions .Route .COMPLEX 02/28/23 02/28/23 Unknown History metformin 500 mg tablet 500 mg PO BID 02/28/23 02/28/23 Unknown History metoprolol succinate 100 mg 50 mg PO BID 02/28/23 02/28/23 Unknown History tablet,extended release 24 hr midodrine 10 mg tablet 5 mg PO TID 02/28/23 02/28/23 Unknown History potassium chloride 20 mEq 20 meq PO BID 02/28/23 02/28/23 Unknown History tablet,extended release sacubitril 49 mg-valsartan 51 mg 1 tab PO BID 02/28/23 02/28/23 Unknown History tablet (Entresto) spironolactone 25 mg tablet 25 mg PO DAILY 02/28/23 02/28/23 Unknown History Allergies Allergy/AdvReac Type Severity Reaction Status Date / Time No Known Allergies Allergy Verified 02/28/23 07:45 Current Medications Generic Name Dose Route Start Last Admin Trade Name Freq PRN Reason Stop Dose Admin Furosemide 40 mg 02/28/23 11:30 02/28/23 13:04 Furosemide 10 Mg/Ml Sdv 4ml IVP 40 mg Q12H JERRY Administration Haloperidol Lactate 1 mg 02/28/23 15:45 02/28/23 16:06 Haloperidol Inj 5 Mg/Ml Inj 1 Ml IVP 1 mg Q4H PRN Administration AGITATION Vancomycin/PEG/NADA/Lysine/Water 1,250 mg in 250 mls @ 250 mls/hr 02/28/23 13:00 02/28/23 15:17 Vancocin IV Infused Q12H JERRY Infusion Piperacillin Sod/Tazobactam 50 mls @ 12.5 mls/hr 02/28/23 12:30 02/28/23 13:45 Sod 3.375 gm/ Sodium Chloride IV Infused Q8H JERRY Infusion Amiodarone HCl 900 mg/ 518 mls @ 0 mls/hr 02/28/23 14:04 02/28/23 14:27 Dextrose/ IV Miscellaneous IV 1 mg/min Supplies .Q0M JERRY 34.53 mls/hr Administration Protocol Per Protocol Insulin Human Lispro 0 unit 02/28/23 12:00 02/28/23 12:48 Insulin Lispro 100 Unit/1 Ml SUBCUT Not Given TIDWM JERRY Protocol Levalbuterol HCl 0.63 mg 02/28/23 14:29 02/28/23 17:04 Levalbuterol 0.63 Mg/3 Ml Neb INHALATION 0.63 mg Q4H.RESPIRATORY PRN Administration SHORTNESS OF BREATH Lorazepam 2 mg 02/28/23 14:56 02/28/23 16:06 Lorazepam 2 Mg/Ml Inj 1 Ml IVP 2 mg PRN PRN Administration WITHDRAWAL Protocol Pantoprazole Sodium 40 mg 02/28/23 11:15 02/28/23 13:04 Pantoprazole 40 Mg Sdv IVP 40 mg Q24H JERRY Administration PFSH Acute PFSH: Medical History Atrial fibrillation CHF (congestive heart failure) Hypertension No pertinent family history Non-insulin dependent type 2 diabetes mellitus Peripheral vascular disease Surgical History History of implantable cardioverter-defibrillator (ICD) placement Family History Mother CAD (coronary artery disease) Social History Smoking and tobacco status: former smoker Alcohol intake: current Substance/Drug Use: current Vitals/I&O/Wt Last Vital Signs Temp 97.1 F L 02/28/23 14:35 Pulse 103 H 02/28/23 17:05 Resp 30 H 02/28/23 17:05 BP 86/72 02/28/23 16:30 Pulse Ox 99 02/28/23 17:05 O2 Del Method BiPAP 02/28/23 17:05 FiO2 40 02/28/23 17:05 02/28/23 02/28/23 02/28/23 06:59 14:59 22:59 Intake Total 200 / 200 250 / 450 Balance 200 / 200 250 / 450 Weight last 48 hrs Weight 170 lb Physical Exam Narrative: GENERAL: Patient is drowsy NECK: No jugular vein distension. [] HEENT: No cyanosis. No icterus. No pallor. [] HEART: Regular S1 and S2. LUNGS: Clear to auscultate bilaterally. [] CENTRAL NERVOUS SYSTEM: Grossly nonfocal. [] EXTREMITIES: Lower extremities with 1+ edema bilaterally. Urinary Catheter Management: Laird: Cath Placed During This Visit: yes Urinary Catheter Date of Insertion: 02/28/23 Urinary Catheter Time of Insertion: 16:00 Data 03/02/23 03:45 03/02/23 03:45 A&P Assessment and plan (1) NORMA (acute kidney injury): (2) Flash pulmonary edema: (3) Shock: (4) ICD (implantable cardioverter-defibrillator) discharge: (5) Atrial fibrillation with RVR: Plan Recommend ICD interrogation Cardizem is controlling heart rate however patient is becoming hypotensive. Monitor closely. If heart rate is uncontrolled systolic, consider amiodarone. Continue anticoagulation. Echo shows severely reduced LV systolic function. Once patient's blood pressure is stable, will need diuresis. Thank you for involving us with care of this patient. We will continue to follow. Please call with questions. Consult Attestations Medical Necessity Statement: Care expected to cross 2 midnights. Coding Level of Care Code Acute Code for Chg Fwd Diagnoses NORMA (acute kidney injury) N17.9 Flash pulmonary edema J81.0 Shock R57.9 ICD (implantable cardioverter-defibrillator) discharge Z45.02 Atrial fibrillation with RVR I48.91
[2023-02-28] MEDS: heparin drip 25,000 UNIT/500 ML PREMIX 21.59 UNIT IV (17:59)
[2023-02-28 18:26] LABS: Glucose Point of Care 164 mg/dL (70-110)
[2023-02-28] MEDS: dexmedetomidine 400 MCG in sodium chloride 0.9% (100 ml) 100 ML IV (19:00)
[2023-02-28] MEDS: insulin lispro 100 unit/1 mL SUBCUT (19:12)
--- NOTE | 2023-02-28 19:57 | PC.NURSE ---
SHift SUmmary: Recieved patient from ER staff at 1737. Patient withdraws form pain only. On bipap. Curently receiving precedex and cardizem. BP: 96/73, RR: 34, SPO2: 98, heart rate: 95. SHortly after arrival patient became hypotensive. Nurse attempted to titrate down on the cardizem and precedex as indicated, and lowering the head of the bed, but patient was becoming increasingly agitated as precedex was reduced, increased difficulty breathing as head was lowered, and reduction of cardizem had no effect on pressure. NUrse alerted Dr manuel to blood pressure readings and failed interventions. REceived orders to start levophed.
--- NOTE | 2023-02-28 20:10 | XRR_ITS ---
PROCEDURE INFORMATION: Exam: XR Chest Exam date and time: 02/28/2023 7:14 PM Age: 57 years old Clinical indication: Device placement; Picc; Additional info: Dyspnea/cough TECHNIQUE: Imaging protocol: Radiologic exam of the chest. Views: 1 view. COMPARISON: CR XR chest 1V portable [id number] 02/28/2023 8:15 AM FINDINGS: Tubes, catheters and devices: There is a right-sided PICC. The tip appears to be in the superior vena cava. There is a left chest wall pacemaker identified. Lungs: Unremarkable. No consolidation. Pleural spaces: Unremarkable. No pleural effusion. No pneumothorax. Heart/Mediastinum: Unremarkable. No cardiomegaly. Bones/joints: There is an old appearing right rib fracture. XR/XR chest 1V portable [id number] IMPRESSION: No evidence of acute pulmonary process.
[2023-02-28 20:29] LABS: Glucose Point of Care 144 mg/dL (70-110)
[2023-02-28 20:34] LABS: Charge for UA Resulting for Rev
[2023-02-28 20:45] LABS: Amphetamines Screen Urine Negative (Negative); Barbiturates Screen Urine Negative (Negative); Benzodiazepines Screen Urine Positive (Negative); Cocaine Screen Urine Negative (Negative); Opiate Screen Urine Negative (Negative); PCP Screen Urine Negative (Negative); THC Screen Urine Negative (Negative)
--- NOTE | 2023-02-28 20:52 | PC.NURSE ---
Consulted for PICC placement on a pt who has vasopressors running. Upon arrival noted consent obtained by staff via telephone as pt is not able to sign his own. Noted L anterior chest AICD. Assessed RUE and noted brachial vein is best candidate at 5mm in diameter and no s/s of thrombus or stenosis. Using US guidance, MST, and sterile technique the R brachial vein was accessed x 1 stick. Device fed easily. All 3 ports aspirate and flush. Device secured and dressed. EBL 5ml. Chest xray ordered. Pt tolerated well. Report to primary nurse. Waiting on radiologist to read the tip location. In my opinion near CAJ or RA. PICC is 42 cm long and RUE is 30 cm in circumference at 10 cm above the AC fossa.
[2023-02-28 21:14] LABS: Add Urine Microscopic? YES; Bilirubin Urine Neg (Negative); Blood Urine 3+ (Negative); Glucose Urine UA Norm (Normal); Ketones Urine Negative (Negative); Leukocyte Esterase Urine 2+ (Negative); Nitrate Urine Negative (Negative); Protein Urine 1+ (Negative); Specific Gravity, Urine 1.015 (1.005-1.030); Urine Color Yellow (Yellow); Urobilinogen Urine Norm (Negative); pH Urine 5 (5-7)
[2023-02-28 21:26] LABS: ABG PCO2 20.7 mmHg (35-45); ABG PH Result 7.41 (7.35-7.45); Alveolar-Arterial Oxygen Gradi 12.4 mmHg (5-10); Arterial Blood Gas Hematocrit 47.3 % (42-52); Base Excess ABG -8.7 mmol/L (-2.0-2.0); Blood Gas Allen Test Pos; Blood Gas Operator Identificat JB; Blood Gas Sample Site Radial, right; Blood Gas Sample Type Arterial; Carboxyhemoglobin 1.2 %THgb (0.4-20.1); HCO3 ABG 13.2 mmol/L (22-26); HGB O2 Sat 98.2 % (95-100); Ionized Calcium Level - ABG 1.1 mmol/L (1.1-1.4); Methemoglobin 0.3 % (0.4-1.5); Oxygen Device BIPAP; Oxygen Saturation ABG 99.7; Total Hemoglobin 15.4 g/dL (14-18)
[2023-03-01] VITALS (62 sets, daily range): BP systolic 60–134; BP diastolic 34–90; PULSE 59–74; RESP 10–26; TEMP 36.3–36.7; O2SAT 73–100; BMI 26.9
[2023-03-01] MEDS: vancomycin 1,250 MG/250 ML PIGGYBACK 250 MG IV (00:06)
[2023-03-01] MEDS: FUROsemide 10 mg/mL SDV 4mL 40 MG IVP (00:06)
[2023-03-01 01:33] LABS: Partial Thromboplastin Time 35.6 SECONDS (23.9-36.7)
[2023-03-01] MEDS: heparin 5,000 unit/mL INJ 1 mL IV (02:07)
[2023-03-01 03:05] LABS: Basophils # 0.1 10^3/uL (0.0-0.1); Basophils % 0.3 %; Hematocrit 46.5 % (42.0-52.0); Hemoglobin 14.6 g/dL (11.7-16.6); Lymphocytes # 1.2 10^3/uL (0.8-4.8); Lymphocytes % 4.4 %; Mean Corpuscular HGB Conc 31.4 g/dL (30.0-36.0); Mean Corpuscular Hemoglobin 27.2 pg (28.0-34.0); Mean Corpuscular Volume 86.6 fl (80-94); Mean Platelet Volume 10.9 fL (7.4-10.4); Monocytes # 0.5 10^3/uL (0.2-0.9); Monocytes % 1.9 %; Neutrophils # 24.38 10^3/uL (1.8-7.7); Neutrophils % 92.7 %; Nucleated Red Blood Cells % 0 %; Platelet Count 172 10^3/cmm (130-400); Red Blood Count 5.37 10^6/uL (4.1-5.3); Red Cell Distribution Width 12.4 % (12.1-15.1); White Blood Count 26.3 10^3/uL (4.0-10.0)
[2023-03-01 03:28] LABS: Alanine Aminotransferase 14 U/L (0-41); Albumin Level 2.9 g/dL (3.5-5.2); Alkaline Phosphatase 63 U/L (40-130); Anion Gap 23.2 (5-19); Aspartate Amino Transferase 20 U/L (0-40); Blood Urea Nitrogen 21 mg/dL (6-20); Calcium 8.4 mg/dL (8.5-10.5); Carbon Dioxide 15 mmol/L (22-29); Chloride 102 mmol/L (98-107); Globulin 4.2 g/dL (1.3-4.6); Glomerular Filtration Rate 44.9 mL/min (90-130); Glucose 189 mg/dL (65-115); Magnesium 1.7 mg/dL (1.7-2.3); NT Pro B Type Natriuretic Pept 11032 pg/mL (0-125); Osmolality Calculated 290 mOsm/kg (285-295); Phosphorus 4.6 mg/dL (2.5-4.5); Potassium 4.2 mmol/L (3.5-5.1); Sodium 136 mmol/L (136-145); Total Bilirubin 0.7 mg/dL (0.15-1.2); Total Protein 7.1 g/dL (6.6-8.7)
--- NOTE | 2023-03-01 03:42 | PHA.FALL ---
A Pharmacy Consult Was Conducted For Andrew Ruggiero Due To: Gallegos Fall Scale Risk Level: High Fall Risk On 02/28/23 20:00 And A Medication Fall Risk Score Greater Than 10. The Recommendations Are As Follows: The [place] [facility] has compiled a referenced resource for High-Risk Medications Attributed to Falls in Older Adults. list available upon request or at [email or web address] These meds given alone show increased risk, in combination effects may be additive Medications which cause/contribute to: 1 = sedation/fatigue/lethargy 2 = decreased alertness 3 = postural/orthostatic hypotension 4 = dizziness 5 = decreased neuromuscular function/ataxia 6 = decreased memory/cognitive impairment 7 = blurred vision 8 = confusion 9 = arrhythmias 10 = syncope 11 = anemia Spironolactone DIANA 1,2,5,8 Amiodarone DIANA: 1,3,4,7,9,10 Furosemide DIANA: 3,4 Haloperidol DIANA: 1,3,4,5,7,8,10 Lorazepam DIANA: 1,3,4,5,6,8,10 Metoprolol Succ DIANA: 1,2,3,4,5,9,10 Insulin Lispro can lead to hypoglycemia, which may result in lightheadedness, dizziness, and/or unsteadiness on feet, and may increase one?s risk for falling. Meds not included that may have adverse effects that could contribute or compound risk for falls. source: micromedex naloxone: Neurologic: Asthenia (4.3% ), Dizziness (4.3% ), Headache (4.3% ), Near syncope (4.3% )
[2023-03-01] MEDS: piperacillin-tazobactam 3.375 GM in sodium chloride 0.9% (plus) 50 ML IV ×3 (04:18→21:32)
--- NOTE | 2023-03-01 06:38 | PC.NURSE ---
Lethargy Previously in the night, patient able to mumble his name and made an attempt to tell the year (though the year stated was incorrect). This morning, patient more lethargic: unable to open eyes, able to mumble his name though more garbled, and still able to obey commands. Dr. Hernandez notified and order received for a VBG.
[2023-03-01 06:41] LABS: Base Excess VBG -7.5 mmol/L (-3.0-3.0); Blood Gas Operator Identificat JB; Blood Gas Sample Site Not specified; Blood Gas Sample Type Venous; HCO3 VBG 18.8 mmol/L (24-28); Oxygen Device BIPAP; PCO2 VBG 40.1 mmHg (41-51); PO2 VBG 41.1 mmHg (25-40); Venous Blood Gas Hematocrit 46.7 % (42-52); pH VBG 7.28 (7.32-7.42)
[2023-03-01 08:20] LABS: Glucose Point of Care 178 mg/dL (70-110)
[2023-03-01] MEDS: insulin lispro 100 unit/1 mL SUBCUT ×3 (08:25→17:33)
[2023-03-01 08:37] LABS: Partial Thromboplastin Time 69.3 SECONDS (23.9-36.7)
--- NOTE | 2023-03-01 09:46 | XRR_ITS ---
PROCEDURE INFORMATION: Exam: XR Chest Exam date and time: 03/01/2023 8:56 AM Age: 57 years old Clinical indication: Shortness of breath; Prior surgery; Surgery date: 6+ months; Surgery type: Not specified; Additional info: SOB TECHNIQUE: Imaging protocol: Radiologic exam of the chest. Views: 1 view. COMPARISON: CR (CHEST, ) 02/28/2023 7:14 PM FINDINGS: Tubes, catheters and devices: Right side PICC line extends to the proximal SVC. This tube has been retracted since prior examination. Cardiac device left anterior chest in good position. Lungs: Unremarkable. No consolidation. Pleural spaces: Unremarkable. No pleural effusion. No pneumothorax. Heart/Mediastinum: Unremarkable. No cardiomegaly. Bones/joints: Unremarkable. XR/XR chest 1V portable [id number] IMPRESSION: 1. No acute findings. 2. Right side PICC line in the SVC 3. Cardiac device left anterior chest
--- NOTE | 2023-03-01 11:30 | PC.PHAR ---
[id number] VANCOMYCIN: SCR INCREASE FROM 0.8 TO 1.6. FREQUENCY CHANGED FROM Q12H TO Q24H, NEXT DOSE DELAYED FROM 0100 TO 0500 TO ALLOW EXTRA SOME EXTRA TIME FOR CLEARANCE AFTER 2 DOSES AT Q12H. NEW TROUGH 03/04 @ 0400
[2023-03-01 11:55] LABS: Glucose Point of Care 144 mg/dL (70-110)
[2023-03-01] MEDS: pantoprazole 40 mg SDV IVP (12:27)
--- NOTE | 2023-03-01 12:46 | P.PN_ITS ---
Subjective Subjective: Patient was seen this morning, overnight he required Levophed, currently on Levophed, converted to normal sinus rhythm, heart rates in the 60s, currently off Cardizem drip, he is currently on BiPAP, he does awaken, he does follow commands such as squeezing my fingers able to smile for me, but is quite drowsy and falls back asleep, he had received sedating medications Vitals/I&O/Wt Last Vital Signs Temp 97.4 F L 03/01/23 07:30 Pulse 61 03/01/23 12:00 Resp 17 03/01/23 12:00 BP 86/52 03/01/23 12:00 Pulse Ox 100 03/01/23 12:00 O2 Del Method BiPAP 03/01/23 07:50 O2 Flow Rate 35 03/01/23 07:50 FiO2 24 03/01/23 11:29 02/28/23 03/01/23 03/01/23 22:59 06:59 14:59 Intake Total 551.506 / 751.506 748.786 / 1500.292 50 / 50 Output Total 1500 / 1500 Balance 551.506 / 751.506 -751.214 / 0.292 50 / 50 Weight last 48 hrs Weight 78.018 kg Weight 77.111 kg Physical Exam Const: COMMON NORMALS: no acute distress EXAM LIMITATIONS: altered mental status ORIENTATION/CONSCIOUSNESS: Yes awake, Yes oriented to person and Yes confused; not oriented to place and not oriented to time Eye: COMMON NORMALS: Equal, round and reactive pupils present PUPIL: Yes Equal, round and reactive pupils present Resp: COMMON NORMALS: normal respiratory effort, No retractions and No use of accessory muscles AUSCULTATION: crackles and wheezes Cardio: COMMON NORMALS: regular rate, regular rhythm, S1 normal heart sound present and S2 normal heart sound present RATE: regular rate RHYTHM: regular rhythm HEART SOUNDS: S1 normal heart sound present and S2 normal heart sound present GI: COMMON NORMALS: Normal to inspection, nondistended, normoactive bowel sounds present and non-tender OTHER: abdominal wall hernia reducible Extremity: COMMON NORMALS: no pedal edema Neuro: SENSORIUM/ORIENTATION: Yes oriented to person, No oriented to place and No oriented to time Urinary Catheter Management: Laird: Cath Placed During This Visit: yes Reason for Continuing Indwelling Catheter: Accurate Measurement of Urinary Output in Critically Ill Patients Urinary Catheter Date of Insertion: 02/28/23 Urinary Catheter Time of Insertion: 16:00 Data 03/01/23 02:50 03/01/23 02:50 Micro: Microbiology 03/01/23 08:07 Blood Culture - Preliminary Blood SPECIMEN COLLECTED 03/01/23 06:54 Blood Culture - Preliminary Blood SPECIMEN COLLECTED A&P Assessment and plan (1) Atrial fibrillation with RVR: (2) Syncope and collapse: (3) New onset left bundle branch block (LBBB): (4) Hypomagnesemia: (5) Hyperglycemia: (6) Systolic CHF, acute on chronic: (7) ICD (implantable cardioverter-defibrillator) discharge: (8) NSTEMI (non-ST elevated myocardial infarction): (9) Diabetic leg ulcer: (10) Goals of care, counseling/discussion: (11) Aspiration into airway: (12) Aspiration pneumonia: (13) Acute encephalopathy: (14) Acute respiratory failure with hypoxia: (15) Shock: (16) Flash pulmonary edema: (17) NORMA (acute kidney injury): (18) Abdominal wall hernia: Plan Acute encephalopathy -due to hypoxia -due to aspiration pnemoniae -due to diabetic ulcer -due to sedating medcations Acute respiratory failure -due to flash pulmonary edema -due to aspiration penumoniae Acute aspiration pneumonia, with leukocytosis -on zosyn systolic chf exacerbation -flash pulmonary edema Shock -Likely second A-fib with RVR -Aspiration pneumonia -Respiratory failure -Continue to wean off Levophed A-fib with RVR -Currently heart rates in 60s, normal sinus rhythm -Continue Cardizem 30 every 6 -Consulted cardiology Syncope and collapse -With possible ICD defibrillation, will await interrogation Hypomagnesemia -Replace IV mag NSTEMI -Type I versus type II -With new onset left bundle branch block, concerning for underlying CAD -Aspirin, statin, beta-kim -Heparin drip -Cardiac echo -Cardiology consulted New onset left bundle branch block, as above Diabetic leg ulcer -Bilateral diabetic sandoval ulcers -Wound care -Vancomycin, Zosyn -Ordered blood cultures -Consult general surgery for consideration of bedside debridement -We will order vascular studies Type 2 diabetes mellitus A1c, low-dose sliding scale Full code Heparin drip for DVT prophylaxis Spoke to ER doctor, spoke to cardiology, spoke to nursing staff, spoke to patient Attestations Medical Necessity Statement*: Patient requires hospitalization for shock, A-fib RVR, aspiration pneumonia, respiratory failure, hypoxia, acute encephalopathy Coding Level of Care Code Critical Care >/= 30 minutes Critical care time (in minutes): 60 The high probability of a clinically significant, sudden or life threatening deterioration, as referenced in this documentation, required my full and direct attention, intervention and personal management. The critical care time shown is in addition to time spent performing any reported separately billable procedures and includes the following: [x] Data and vital sign review and interpretation [x ] Patient assessment, examination and intervention [x] Medication orders and management [x] Patient/Family updates as able [x] Care Coordination and Do cumentation. Diagnoses Atrial fibrillation with RVR I48.91 Syncope and collapse R55 New onset left bundle branch block (LBBB) I44.7 Hypomagnesemia E83.42 Hyperglycemia R73.9 Systolic CHF, acute on chronic I50.23 ICD (implantable cardioverter-defibrillator) discharge Z45.02 NSTEMI (non-ST elevated myocardial infarction) I21.4 Diabetic leg ulcer E11.622; L97.909 Goals of care, counseling/discussion Z71.89 Aspiration into airway T17.908A Aspiration pneumonia J69.0 Acute encephalopathy G93.40 Acute respiratory failure with hypoxia J96.01 Shock R57.9 Flash pulmonary edema J81.0 NORMA (acute kidney injury) N17.9 Abdominal wall hernia K43.9
--- NOTE | 2023-03-01 13:09 | PM.CONSULT ---
Providers/Reason For Consult Consulting Physician/Specialty*: Dr. Ye Obrien, DO/General surgery Reason for Consult*: Decubitus ulcers of bilateral anterior legs Attending Physician: Ishan Cedeno MD History of Present Illness History of Present Illness Andrew Ruggiero is a 57 year old male who is currently in the ICU and has ulcers of his bilateral anterior legs. General surgery was consulted for possible debridement. Patient is confused at this time therefore HPI and review of systems are limited Review of Systems General: Reports: ROS unobtainable due to mental status Medications/Allergies Home Medications Medication Instructions Recorded Confirmed Last Taken Type apixaban 5 mg tablet (Eliquis) 5 mg PO BID #60 tabs 02/07/23 03/16/23 Unknown Rx aspirin 81 mg tablet,delayed 81 mg PO DAILY 02/28/23 03/16/23 Unknown History release atorvastatin 10 mg tablet (Lipitor) 10 mg PO DAILY 02/28/23 03/16/23 Unknown History furosemide 40 mg tablet (Lasix) See Rx Instructions .Route .COMPLEX 02/28/23 03/16/23 Unknown History metformin 500 mg tablet 500 mg PO BID 02/28/23 03/16/23 Unknown History metoprolol succinate 100 mg 50 mg PO BID 02/28/23 03/16/23 Unknown History tablet,extended release 24 hr potassium chloride 20 mEq 20 meq PO BID 02/28/23 03/16/23 Unknown History tablet,extended release sacubitril 49 mg-valsartan 51 mg 1 tab PO BID 02/28/23 03/16/23 Unknown History tablet (Entresto) gabapentin 100 mg capsule 200 mg PO TID 30 days #180 caps 03/07/23 03/16/23 Unknown Rx midodrine 10 mg tablet 10 mg PO TID 30 days #90 tabs 03/07/23 03/16/23 Unknown Rx multivitamin with folic acid 400 1 tab PO DAILY 30 days #30 tabs 03/07/23 03/16/23 Unknown Rx mcg tablet (Thera) Allergies Allergy/AdvReac Type Severity Reaction Status Date / Time No Known Allergies Allergy Verified 03/16/23 10:10 Current Medications Generic Name Dose Route Start Last Admin Trade Name Freq PRN Reason Stop Dose Admin Aspirin 81 mg 03/01/23 09:00 03/05/23 08:47 Aspirin 81 Mg Ec Tablet PO 81 mg DAILY JERRY Administration Atorvastatin Calcium 20 mg 03/01/23 09:00 03/05/23 08:47 Atorvastatin 40 Mg Tablet PO 20 mg DAILY JERRY Administration Collagenase 1 applic 03/02/23 09:00 03/05/23 08:49 Collagenase Oint 30 Gm TOPICAL 1 applic DAILY JERRY Administration Docusate Sodium 100 mg 02/28/23 18:00 03/05/23 10:01 Docusate Sodium 100 Mg Capsule PO Not Given BID [facility] Enoxaparin Sodium 80 mg 03/03/23 06:00 03/05/23 05:56 Enoxaparin 80 Mg/0.8 Ml Syringe SUBCUT 80 mg Q12H JERRY Administration Folic Acid 1 mg 03/01/23 09:00 03/05/23 08:47 Folic Acid 1 Mg Tablet PO 1 mg DAILY [facility] Administration Gabapentin 200 mg 03/05/23 11:55 03/05/23 12:42 Gabapentin 100 Mg Capsule PO Not Given TID [facility] Vancomycin/PEG/NADA/Lysine/Water 1,250 mg in 250 mls @ 250 mls/hr 03/02/23 17:00 03/05/23 07:00 Vancocin IV 03/07/23 16:59 Infused Q12H [facility] Infusion Insulin Human Lispro 0 unit 03/05/23 12:00 03/05/23 12:10 Insulin Lispro 100 Unit/1 Ml SUBCUT 10 unit WM&BEDTIME JERRY Administration Protocol Levalbuterol HCl 0.63 mg 02/28/23 14:29 03/04/23 09:47 Levalbuterol 0.63 Mg/3 Ml Neb INHALATION 0.63 mg Q4H.RESPIRATORY PRN Administration SHORTNESS OF BREATH Midodrine 5 mg 03/05/23 11:45 03/05/23 12:43 Midodrine 5 Mg Tablet PO Not Given TID [facility] Multivitamins Therapeutic 1 tab 03/01/23 09:00 03/05/23 08:47 Multivitamin Therapeutic Tablet PO 1 tab DAILY JERRY Administration Non-Formulary Medication 1 tab 02/28/23 18:00 03/05/23 08:48 Sacubitril-Valsartan [Entresto] PO 1 tab BID JERRY Administration Pantoprazole Sodium 40 mg 02/28/23 11:15 03/05/23 12:10 Pantoprazole 40 Mg Sdv IVP 40 mg Q24H JERRY Administration Potassium Chloride 20 meq 02/28/23 18:00 03/01/23 08:27 Potassium Chloride Er 20 Meq Tablet PO Not Given BID JERRY Thiamine Mononitrate 100 mg 03/01/23 09:00 03/05/23 08:47 Thiamine 100 Mg Tablet PO 100 mg DAILY JERRY Administration PFSH Acute PFSH: Medical History Abdominal wall hernia Atrial fibrillation CHF (congestive heart failure) EF 15-20% on 03/30 History of non-ST elevation myocardial infarction (NSTEMI) Hypertension Non-insulin dependent type 2 diabetes mellitus Peripheral vascular disease Surgical History History of implantable cardioverter-defibrillator (ICD) placement Family History Mother CAD (coronary artery disease) Social History Smoking and tobacco status: current every day smoker cigarettes [ Other cigarette details: 1.5 pack per day x 40 years, currently down to 3-4 cig/day] Alcohol intake: current Alcohol intake frequency: 3 or more drinks per day Alcohol type: beer Substance/Drug Use: former Date of last use: marijuana in 2021 Household members: children Marital status: Single Number of children: 2 Number of grandchildren: 0 Current occupational status: disabled Special duc needs: No Agree to transfusion: Yes Vitals/I&O/Wt Last Vital Signs Temp 98.6 F 03/05/23 00:00 Pulse 72 03/05/23 08:26 Resp 18 03/05/23 08:26 BP 86/56 03/05/23 08:00 Pulse Ox 96 03/05/23 08:26 O2 Del Method Room Air 03/05/23 08:26 O2 Flow Rate 35 03/01/23 07:50 FiO2 24 03/02/23 18:00 03/04/23 03/05/23 03/05/23 22:59 06:59 14:59 Intake Total 1177.0909 / 2187.0909 50 / 2237.0909 818 / 818 Output Total 3270 / 4090 2460 / 6550 700 / 700 Balance -2092.9091 / -1902.9091 -2410 / -4312.9091 118 / 118 Weight last 48 hrs Weight 172 lb 1.6 oz Weight 179 lb Weight 179 lb Physical Exam Narrative: General : Patient is well developed , no acute distress, oriented to self Head : Normal cephalic, a-traumatic. Ears : Pinnae and external canal are normal. Hearing is normal. Eyes : PERRLA, Sclera and injection are normal. No conjunctival discharge. Nose : Mucous membranes are without erythema. Throat : buccal mucosa is normal, gums are without significant recession or hypertrophy. Lungs : Equal chest rise bilaterally, no use of accessory muscles, trachea is midline. Cor : Rate and rhythm are normal. Abdomen : Soft, ND, NT Extremities : No edema, no cyanosis or clubbing, dorsalis pedis pulses are present bilaterally, non-tender to palpation of calves, there are stage III ulcers of the bilateral anterior legs. There is minimal fibrinous tissue on the right leg and none on the left. No overt signs of acute infection. Upper extremities are normal bilaterally. Back : non-tender to palpation, no CVA tenderness. Neuro : CN II - XII intact, Upper and lower extremities have equal and full strength Urinary Catheter Management: Laird: Cath Placed During This Visit: yes, but has since been removed by the nurse Reason for Continuing Indwelling Catheter: Accurate Measurement of Urinary Output in Critically Ill Patients Urinary Catheter Date of Insertion: 02/28/23 Urinary Catheter Time of Insertion: 16:00 Date Urinary Catheter Removed: 03/05/23 Time Urinary Catheter Discontinued: 12:50 Data 03/07/23 04:41 03/07/23 04:41 A&P Assessment and plan (1) Diabetic leg ulcer: Plan Recommend once daily Santyl to the right leg until no fibrinous tissue seen. This should only take 2 or 3 days I believe. Daily dry dressing changes to the left leg. No acute surgical intervention. Thank you for this consultation. Coding Level of Care Code 56268 Diagnoses Diabetic leg ulcer E11.622; L97.909
[2023-03-01] MEDS: dexmedetomidine 400 MCG in sodium chloride 0.9% (100 ml) 100 ML IV (13:41)
[2023-03-01 15:47] LABS: Partial Thromboplastin Time 29.4 SECONDS (23.9-36.7)
[2023-03-01] MEDS: heparin drip 25,000 UNIT/500 ML PREMIX 30 UNIT IV (16:00)
[2023-03-01 17:16] LABS: Glucose Point of Care 196 mg/dL (70-110)
[2023-03-01] MEDS: docusate sodium 100 mg Capsule PO (17:34)
--- NOTE | 2023-03-01 18:02 | PM.PN ---
Subjective Subjective: Patient is sleepy and drowsy. No chest pain. Vitals/I&O/Wt Last Vital Signs Temp 97.4 F L 03/01/23 07:30 Pulse 61 03/01/23 16:00 Resp 14 03/01/23 16:00 BP 121/70 03/01/23 16:00 Pulse Ox 100 03/01/23 14:30 O2 Del Method BiPAP 03/01/23 07:50 O2 Flow Rate 35 03/01/23 07:50 FiO2 24 03/01/23 11:29 03/01/23 03/01/23 03/01/23 06:59 14:59 22:59 Intake Total 748.786 / 1500.292 184.436 / 184.436 444.401 / 628.837 Output Total 1500 / 1500 1200 / 1200 Balance -751.214 / 0.292 184.436 / 184.436 -755.599 / -571.163 Weight last 48 hrs Weight 172 lb Weight 170 lb Physical Exam Narrative: GENERAL: Patient is drowsy NECK: No jugular vein distension. [] HEENT: No cyanosis. No icterus. No pallor. [] HEART: Regular S1 and S2. LUNGS: Diminished air entry. CENTRAL NERVOUS SYSTEM: Grossly nonfocal. [] EXTREMITIES: Lower extremities with 1+ edema bilaterally. Urinary Catheter Management: Laird: Cath Placed During This Visit: yes Reason for Continuing Indwelling Catheter: Accurate Measurement of Urinary Output in Critically Ill Patients Urinary Catheter Date of Insertion: 02/28/23 Urinary Catheter Time of Insertion: 16:00 Data 03/02/23 03:45 03/02/23 03:45 Micro: Microbiology 03/01/23 08:07 Blood Culture - Preliminary Blood SPECIMEN COLLECTED 03/01/23 06:54 Blood Culture - Preliminary Blood SPECIMEN COLLECTED A&P Assessment and plan (1) NORMA (acute kidney injury): (2) Flash pulmonary edema: (3) Shock: (4) ICD (implantable cardioverter-defibrillator) discharge: (5) Atrial fibrillation with RVR: Plan Continue IV diuresis. Close I&O's. Her troponin elevation is mild and secondary to demand ischemia. LV systolic function is severely reduced. We do not have baseline however patient has an ICD in place likely chronic heart failure. Once patient is euvolemic, and can consider a stress test. He is in normal sinus rhythm right now. Continue anticoagulation WBC count is significantly elevated. Antibiotics per primary team Thank you for involving us with care of this patient. We will continue to follow. Please call with questions. Attestations Medical Necessity Statement*: Care expected to cross 2midnights. Coding Level of Care Code Acute Code for Chg Fwd Diagnoses NORMA (acute kidney injury) N17.9 Flash pulmonary edema J81.0 Shock R57.9 ICD (implantable cardioverter-defibrillator) discharge Z45.02 Atrial fibrillation with RVR I48.91
[2023-03-01 20:33] LABS: Glucose Point of Care 209 mg/dL (70-110)
[2023-03-01 23:12] LABS: Partial Thromboplastin Time 108.4 SECONDS (23.9-36.7)
[2023-03-02] VITALS (61 sets, daily range): BP systolic 86–126; BP diastolic 51–85; PULSE 60–123; RESP 6–33; TEMP 36.7–36.8; O2SAT 88–99; BMI 26.9
[2023-03-02 04:09] LABS: Basophils # 0.1 10^3/uL (0.0-0.1); Basophils % 0.5 %; Eosinophils # 0.3 10^3/uL (0.0-0.8); Eosinophils % 2.7 %; Hematocrit 41.2 % (42.0-52.0); Hemoglobin 13.3 g/dL (11.7-16.6); Lymphocytes # 1.8 10^3/uL (0.8-4.8); Lymphocytes % 16.1 %; Mean Corpuscular HGB Conc 32.3 g/dL (30.0-36.0); Mean Corpuscular Volume 83.7 fl (80-94); Mean Platelet Volume 10.6 fL (7.4-10.4); Monocytes # 0.5 10^3/uL (0.2-0.9); Monocytes % 4.1 %; Neutrophils # 8.59 10^3/uL (1.8-7.7); Neutrophils % 76.3 %; Nucleated Red Blood Cells % 0 %; Platelet Count 127 10^3/cmm (130-400); Red Blood Count 4.92 10^6/uL (4.1-5.3); Red Cell Distribution Width 12.5 % (12.1-15.1); White Blood Count 11.3 10^3/uL (4.0-10.0)
[2023-03-02] MEDS: piperacillin-tazobactam 3.375 GM in sodium chloride 0.9% (plus) 50 ML IV ×3 (04:12→20:00)
[2023-03-02] MEDS: vancomycin 1,250 MG/250 ML PIGGYBACK 250 MG IV ×2 (04:12→17:17)
[2023-03-02 04:28] LABS: INR 1.19 (0.8-1.2)
[2023-03-02 04:29] LABS: Partial Thromboplastin Time 43.4 SECONDS (23.9-36.7)
[2023-03-02 04:42] LABS: NT Pro B Type Natriuretic Pept 1843 pg/mL (0-125); Procalcitonin 13.02 ng/mL (0-0.5)
[2023-03-02 04:53] LABS: Alanine Aminotransferase 21 U/L (0-41); Albumin Level 2.8 g/dL (3.5-5.2); Alkaline Phosphatase 53 U/L (40-130); Anion Gap 14.3 (5-19); Aspartate Amino Transferase 26 U/L (0-40); Blood Urea Nitrogen 23 mg/dL (6-20); C Reactive Protein 111.2 mg/L (0.0-4.9); Calcium 8.2 mg/dL (8.5-10.5); Carbon Dioxide 21 mmol/L (22-29); Chloride 104 mmol/L (98-107); Creatinine Clr Calc Pharmacy 91.8649; Globulin 3.8 g/dL (1.3-4.6); Glomerular Filtration Rate 87.3 mL/min (90-130); Glucose 138 mg/dL (65-115); Magnesium 1.5 mg/dL (1.7-2.3); Osmolality Calculated 288 mOsm/kg (285-295); Phosphorus 2.4 mg/dL (2.5-4.5); Potassium 3.3 mmol/L (3.5-5.1); Sodium 136 mmol/L (136-145); Total Bilirubin 0.4 mg/dL (0.15-1.2); Total Protein 6.6 g/dL (6.6-8.7)
[2023-03-02] MEDS: heparin 5,000 unit/mL INJ 1 mL IV (04:56)
[2023-03-02 07:37] LABS: Glucose Point of Care 154 mg/dL (70-110)
[2023-03-02] MEDS: docusate sodium 100 mg Capsule PO ×2 (07:49→17:18)
[2023-03-02] MEDS: folic acid 1 mg Tablet PO (07:49)
[2023-03-02] MEDS: atorvastatin 40 mg Tablet 20 MG PO (07:49)
[2023-03-02] MEDS: multivitamin therapeutic Tablet 1 TAB PO (07:49)
[2023-03-02] MEDS: metoprolol succinate ER (24 HR) 100 mg Tablet 50 MG PO ×2 (07:50→17:17)
[2023-03-02] MEDS: aspirin 81 mg EC Tablet PO (07:50)
[2023-03-02] MEDS: thiamine 100 mg Tablet PO (07:50)
[2023-03-02] MEDS: spironolactone 25 mg Tablet PO (07:51)
[2023-03-02] MEDS: insulin lispro 100 unit/1 mL SUBCUT ×2 (07:51→17:18)
[2023-03-02 10:24] LABS: Partial Thromboplastin Time 57.6 SECONDS (23.9-36.7)
[2023-03-02] MEDS: collagenase oint 30 gm 1 APPLIC TOPICAL (10:50)
[2023-03-02] MEDS: dilTIAZem 30 mg Tablet PO ×2 (10:50→15:35)
[2023-03-02] MEDS: pantoprazole 40 mg SDV IVP (10:50)
[2023-03-02] MEDS: heparin drip 25,000 UNIT/500 ML PREMIX 28 UNIT IV (10:50)
--- NOTE | 2023-03-02 11:35 | PC.NURSE ---
Patients wallet and phone was given to this nurse by security. Items were placed in [employer].
--- NOTE | 2023-03-02 11:41 | P.PN_ITS ---
Subjective Subjective: Patient was seen this morning. overnight levophed weas weaned down. BIPAP worn. no events. Seen this AM. pt was sitting up on side of bed eating lunch. states he is feeling improved. No BIPAP since early AM, levophed stopped at 08:00. HR has been in 80's on cardizem PO and metoprolol PO. MAP >70 x 3hrs. States he is having less difficulty breathing, does not appear SOB. lower extremity edema still present, states legs are less swollen than yday but still painful. Seen by Gen Surg yday, wound care set up. Currently on hep gtt. Mental status improving, alert and oriented x 3. likley back to baseline or near baseline mental functioning. pt complaining about wallet and phone being stolen. Vitals/I&O/Wt Last Vital Signs Temp 98.1 F 03/02/23 04:00 Pulse 84 03/02/23 10:00 Resp 23 H 03/02/23 10:00 BP 95/64 03/02/23 10:00 Pulse Ox 96 03/02/23 06:30 O2 Del Method Room Air 03/01/23 19:54 O2 Flow Rate 35 03/01/23 07:50 FiO2 24 03/02/23 05:38 03/01/23 03/02/23 03/02/23 22:59 06:59 14:59 Intake Total 979.892 / 1164.328 771.583 / 1935.911 438.417 / 438.417 Output Total 1350 / 1350 200 / 1550 Balance -370.108 / -185.672 571.583 / 385.911 438.417 / 438.417 Weight last 48 hrs Weight 171 lb 14.4 oz Weight 172 lb Physical Exam Const: COMMON NORMALS: no acute distress EXAM LIMITATIONS: altered mental status ORIENTATION/CONSCIOUSNESS: Yes awake, Yes oriented to person, Yes oriented to place, Yes oriented to time and Yes confused Eye: COMMON NORMALS: Equal, round and reactive pupils present PUPIL: Yes Equal, round and reactive pupils present Resp: COMMON NORMALS: normal respiratory effort, No retractions and No use of accessory muscles AUSCULTATION: crackles (bibasilar R>L) and no wheezes Cardio: COMMON NORMALS: regular rate, regular rhythm, S1 normal heart sound present and S2 normal heart sound present RATE: regular rate RHYTHM: regular rhythm HEART SOUNDS: S1 normal heart sound present and S2 normal heart sound present GI: COMMON NORMALS: Normal to inspection, nondistended, normoactive bowel soun ds present and non-tender OTHER: abdominal wall hernia reducible Extremity: COMMON NORMALS: negative for no pedal edema Neuro: SENSORIUM/ORIENTATION: Yes oriented to person, Yes oriented to place and Yes oriented to time Urinary Catheter Management: Laird: Cath Placed During This Visit: yes Reason for Continuing Indwelling Catheter: Accurate Measurement of Urinary Output in Critically Ill Patients Urinary Catheter Date of Insertion: 02/28/23 Urinary Catheter Time of Insertion: 16:00 Data 03/02/23 03:45 03/02/23 03:45 Micro: Microbiology 03/01/23 08:07 Blood Culture - Preliminary Blood NEGATIVE TO DATE 03/01/23 06:54 Blood Culture - Preliminary Blood NEGATIVE TO DATE A&P Assessment and plan (1) Atrial fibrillation with RVR: (2) Syncope and collapse: resolved (3) New onset left bundle branch block (LBBB): (4) Hypomagnesemia: (5) Hyperglycemia: (6) Systolic CHF, acute on chronic: (7) ICD (implantable cardioverter-defibrillator) discharge: (8) NSTEMI (non-ST elevated myocardial infarction): (9) Diabetic leg ulcer: (10) Goals of care, counseling/discussion: (11) Aspiration into airway: (12) Aspiration pneumonia: (13) Acute encephalopathy: improving (14) Acute respiratory failure with hypoxia: (15) Shock: (16) Flash pulmonary edema: (17) NORMA (acute kidney injury): (18) Abdominal wall hernia: (19) Hypokalemia: (20) Hypophosphatemia: Plan Acute encephalopathy -due to hypoxia, aspiration PNA, diabetic ulcer, sedating medication -improving Acute respiratory failure -due to flash pulmonary edema, aspiration PNA -resolved. pt now off Bipap Acute aspiration pneumonia, with leukocytosis -continue zosyn systolic chf exacerbation -flash pulmonary edema -BNP improving, continue to monitor volume status -continues to have lower extremity edema bilaterally, bibasilar crackles. pt hypotensive but off levophed. cautious with future lasix. Shock -Likely second A-fib with RVR, Aspiration pneumonia, Respiratory failure -resolved. -pt has been off levophed with appropriate MAP since 08:00 03/02/23 A-fib with RVR -Currently heart rates in 60s, normal sinus rhythm -Continue Cardizem 30 every 6 -Consulted cardiology Syncope and collapse -With possible ICD defibrillation, will await interrogation -no events since Electrolyte Derangement: lowk K, Mg, phos -Replace with IV Mg, IV Kphos NSTEMI -Type I versus type II -With new onset left bundle branch block, concerning for underlying CAD -Aspirin, statin, beta-kim -Heparin drip -ECHO 02/28/23: EF 15-20%, severe hypokinesis of RV. dilation, moderate pulm HTN, IVC dilated. no comparable studies -Cardiology consulted but note not completed New onset left bundle branch block, as above Diabetic leg ulcer -Bilateral diabetic sandoval ulcers -Wound care -Vancomycin, Zosyn -Ordered blood cultures -Consulted gen surg. evaluated patient. no note present. per nursing staff wound care orders and dressings discussed with patient. bedside debridement completed. -bilateral arterial US of lower extremities: diffuse severe nonocclusive vascular disease in bilateral calf vessels Type 2 diabetes mellitus A1c, low-dose sliding scale PLAN: -monitor this PM. if stable, will transfer to [facility]. -await specialist recs -replete electrolytes -monotior respiratory status and BP/HR closely -consider de-escalating form hep gtt to lovenox -Full code Attestations Medical Necessity Statement*: Patient requires hospitalization for shock, A-fib RVR, aspiration pneumonia, respiratory failure, hypoxia, acute encephalopathy Coding Level of Care Code 94508 Diagnoses Atrial fibrillation with RVR I48.91 Syncope and collapse R55 New onset left bundle branch block (LBBB) I44.7 Hypomagnesemia E83.42 Hyperglycemia R73.9 Systolic CHF, acute on chronic I50.23 ICD (implantable cardioverter-defibrillator) discharge Z45.02 NSTEMI (non-ST elevated myocardial infarction) I21.4 Diabetic leg ulcer E11.622; L97.909 Goals of care, counseling/discussion Z71.89 Aspiration into airway T17.908A Aspiration pneumonia J69.0 Acute encephalopathy G93.40 Acute respiratory failure with hypoxia J96.01 Shock R57.9 Flash pulmonary edema J81.0 NORMA (acute kidney injury) N17.9 Abdominal wall hernia K43.9 Hypokalemia E87.6 Hypophosphatemia E83.39
[2023-03-02] MEDS: potassium phosphate (mEq K) 40 MEQ in sodium chloride 0.9% (100 ml) 100 ML 27.25 MEQ IV (13:09)
[2023-03-02] MEDS: enoxaparin 40 mg/0.4 mL Syringe SUBCUT ×2 (15:35→18:13)
--- NOTE | 2023-03-02 16:12 | PC.NURSE ---
resting in bed at this time
[2023-03-02 16:51] LABS: Partial Thromboplastin Time 32.2 SECONDS (23.9-36.7)
[2023-03-02 16:58] LABS: Vancomycin Trough 11.9 ug/mL (10-15)
[2023-03-02 17:11] LABS: Glucose Point of Care 155 mg/dL (70-110)
--- NOTE | 2023-03-02 17:36 | PM.PN ---
Subjective Subjective: Patient is more awake today. Denies chest pain today. Vitals/I&O/Wt Last Vital Signs Temp 98.1 F 03/02/23 04:00 Pulse 78 03/02/23 16:00 Resp 24 H 03/02/23 16:00 BP 101/64 03/02/23 16:00 Pulse Ox 88 L 03/02/23 13:00 O2 Del Method Room Air 03/01/23 19:54 O2 Flow Rate 35 03/01/23 07:50 FiO2 24 03/02/23 16:00 03/02/23 03/02/23 03/02/23 06:59 14:59 22:59 Intake Total 771.583 / 1935.911 640.817 / 640.817 250 / 890.817 Output Total 200 / 1550 1000 / 1000 Balance 571.583 / 385.911 640.817 / 640.817 -750 / -109.183 Weight last 48 hrs Weight 171 lb 14.4 oz Weight 172 lb Physical Exam Narrative: GENERAL: Patient is alert NECK: No jugular vein distension. [] HEENT: No cyanosis. No icterus. No pallor. [] HEART: Regular S1 and S2. LUNGS: Diminished air entry. CENTRAL NERVOUS SYSTEM: Grossly nonfocal. [] EXTREMITIES: Lower extremities with 1+ edema bilaterally. Urinary Catheter Management: Laird: Cath Placed During This Visit: yes Reason for Continuing Indwelling Catheter: Accurate Measurement of Urinary Output in Critically Ill Patients Urinary Catheter Date of Insertion: 02/28/23 Urinary Catheter Time of Insertion: 16:00 Data 03/02/23 03:45 03/02/23 03:45 Micro: Microbiology 03/01/23 08:07 Blood Culture - Preliminary Blood NEGATIVE TO DATE 03/01/23 06:54 Blood Culture - Preliminary Blood NEGATIVE TO DATE A&P Assessment and plan (1) NORMA (acute kidney injury): (2) Flash pulmonary edema: (3) Shock: (4) ICD (implantable cardioverter-defibrillator) discharge: (5) Atrial fibrillation with RVR: Plan Continue IV diuresis. Close I&O's. Her troponin elevation is mild and secondary to demand ischemia. LV systolic function is severely reduced. We do not have prior echo however patient has an ICD in place likely chronic heart failure. Once patient is euvolemic, and can consider a stress test. Patient's anticoagulation switched by primary team to Lovenox however it is subtherapeutic dose. I will uptitrated to 1 mg/kg which is a therapeutic dose for the patient. Beta-blockers can be uptitrated as BP tolerates. We will stop Cardizem given severely reduced LV systolic function. WBC count has improved. Thank you for involving us with care of this patient. We will continue to follow. Please call with questions. Attestations Medical Necessity Statement*: Care expected to cross 2 midnights. Coding Level of Care Code Acute Code for Chg Fwd Diagnoses NORMA (acute kidney injury) N17.9 Flash pulmonary edema J81.0 Shock R57.9 ICD (implantable cardioverter-defibrillator) discharge Z45.02 Atrial fibrillation with RVR I48.91
[2023-03-03] VITALS (27 sets, daily range): BP systolic 100–157; BP diastolic 55–97; PULSE 65–95; RESP 9–25; TEMP 36.5–37; O2SAT 94–100
[2023-03-03 00:15] LABS: Glucose Point of Care 195 mg/dL (70-110)
[2023-03-03 04:39] LABS: Basophils % 0.7 %; Eosinophils # 0.2 10^3/uL (0.0-0.8); Hematocrit 38.6 % (42.0-52.0); Hemoglobin 12.4 g/dL (11.7-16.6); Lymphocytes # 1.4 10^3/uL (0.8-4.8); Lymphocytes % 25.1 %; Mean Corpuscular HGB Conc 32.1 g/dL (30.0-36.0); Mean Corpuscular Hemoglobin 27.7 pg (28.0-34.0); Mean Corpuscular Volume 86.4 fl (80-94); Mean Platelet Volume 10.7 fL (7.4-10.4); Monocytes # 0.2 10^3/uL (0.2-0.9); Neutrophils # 3.58 10^3/uL (1.8-7.7); Neutrophils % 65.8 %; Nucleated Red Blood Cells % 0 %; Platelet Count 121 10^3/cmm (130-400); Red Blood Count 4.47 10^6/uL (4.1-5.3); Red Cell Distribution Width 12.6 % (12.1-15.1); White Blood Count 5.5 10^3/uL (4.0-10.0)
[2023-03-03] MEDS: vancomycin 1,250 MG/250 ML PIGGYBACK 250 MG IV ×2 (04:41→17:46)
[2023-03-03] MEDS: piperacillin-tazobactam 3.375 GM in sodium chloride 0.9% (plus) 50 ML IV ×3 (04:41→20:10)
[2023-03-03 04:45] LABS: INR 1.09 (0.8-1.2)
[2023-03-03 04:53] LABS: Alanine Aminotransferase 22 U/L (0-41); Albumin Level 2.7 g/dL (3.5-5.2); Alkaline Phosphatase 53 U/L (40-130); Anion Gap 12.8 (5-19); Aspartate Amino Transferase 24 U/L (0-40); Blood Urea Nitrogen 14 mg/dL (6-20); C Reactive Protein 40.6 mg/L (0.0-4.9); Calcium 8.2 mg/dL (8.5-10.5); Carbon Dioxide 22 mmol/L (22-29); Chloride 104 mmol/L (98-107); Globulin 3.7 g/dL (1.3-4.6); Glomerular Filtration Rate 139.4 mL/min (90-130); Glucose 118 mg/dL (65-115); Magnesium 1.5 mg/dL (1.7-2.3); Osmolality Calculated 282 mOsm/kg (285-295); Phosphorus 2.5 mg/dL (2.5-4.5); Potassium 3.8 mmol/L (3.5-5.1); Sodium 135 mmol/L (136-145); Total Bilirubin 0.3 mg/dL (0.15-1.2); Total Protein 6.4 g/dL (6.6-8.7)
[2023-03-03 04:59] LABS: NT Pro B Type Natriuretic Pept 1455 pg/mL (0-125); Procalcitonin 6.68 ng/mL (0-0.5)
[2023-03-03 05:01] LABS: Lactate (Lactic Acid level) 0.7 mmol/L (0.5-2.2)
[2023-03-03] MEDS: enoxaparin 80 mg/0.8 mL Syringe SUBCUT ×2 (05:43→17:41)
--- NOTE | 2023-03-03 05:54 | PC.NURSE ---
Attempted [employer] interrogation with [employer] and [employer] devices. Unable to connect with either device. Patient unable to recall pace-maker brand.
--- NOTE | 2023-03-03 07:27 | PM.PN ---
Subjective Subjective: Patient was seen this morning. Pt laying in bed. stating he is feeling improved. Off Levophed and Bipap x 24hrs. Tolerating PO well. mentation at baseline. AOx3. denies CP, palpitations, SOB, N/V/D/C Medications: Reviewed: Yes Vitals/I&O/Wt Last Vital Signs Temp 97.7 F 03/03/23 04:00 Pulse 67 03/03/23 06:00 Resp 19 H 03/03/23 06:00 BP 132/81 03/03/23 06:00 Pulse Ox 99 03/03/23 06:00 O2 Del Method Room Air 03/02/23 20:00 O2 Flow Rate 35 03/01/23 07:50 FiO2 24 03/02/23 18:00 03/02/23 03/03/23 03/03/23 22:59 06:59 14:59 Intake Total 1011.0909 / 1651.9079 50 / 1701.9079 Output Total 1000 / 1000 1000 / 2000 Balance 11.0909 / 651.9079 -950 / -298.0921 Weight last 48 hrs Weight 172 lb Weight 171 lb 14.4 oz Physical Exam Narrative: Lines: IV R and L anticubital fossa General: AOx3, no acute distress, well developed, well nourished, appears stated age psych: appropriate mood and affect. good judgment and insight Head: atraumatic, normocephalic, no mass/lesions Eyes: conjunctiva clear w/o exudate or hemorrhage. non-icteric, EOM intact, PERRLA. no signs of nystagmus Nose: nasal mucosa pink, septum midline Oropharynx: poor dentition, Neck: FROM, no lymphadenopathy, Chest: atraumatic, symmetrical CVD: RRR, normal S1 and S2, no M/R/G. 2+ pulse x 4 extremities except at DP's at 1+ Lungs: poor airflow, distant lung sounds, no crackles/wheezing/rhonchi. Abdomen: NT, ND, soft, NABS. No hepatosplenomegaly, no mass. umbilicus midline w/o herniation Extremities: FROM and 5/5 strength in BUE and BLE. -bilat LE: venous stasis dermatitis with bandages C/D/I on anterior legs bilat. 1+ pulse at DP's. Neuro: CNII-XII grossly intact.no sensory abnormalities. Skin:? as above. Urinary Catheter Management: Laird: Cath Placed During This Visit: no Data 03/03/23 03:59 03/03/23 03:59 Micro: Microbiology 03/01/23 08:07 Blood Culture - Preliminary Blood NEGATIVE TO DATE 03/01/23 06:54 Blood Culture - Preliminary Blood NEGATIVE TO DATE A&P Assessment and plan (1) Atrial fibrillation with RVR: (2) Syncope and collapse: resolved (3) New onset left bundle branch block (LBBB): (4) Hypomagnesemia: (5) Hyperglycemia: (6) Systolic CHF, acute on chronic: (7) ICD (implantable cardioverter-defibrillator) discharge: (8) NSTEMI (non-ST elevated myocardial infarction): (9) Diabetic leg ulcer: (10) Goals of care, counseling/discussion: (11) Aspiration into airway: (12) Aspiration pneumonia: (13) Acute encephalopathy: improving (14) Acute respiratory failure with hypoxia: (15) Shock: (16) Flash pulmonary edema: (17) NORMA (acute kidney injury): (18) Abdominal wall hernia: (19) Hypokalemia: (20) Hypophosphatemia: Plan Acute encephalopathy -due to hypoxia, aspiration PNA, diabetic ulcer, sedating medication -resolved Acute respiratory failure -due to flash pulmonary edema, aspiration PNA -resolved. pt now off Bipap Acute aspiration pneumonia, with leukocytosis -continue zosyn systolic chf exacerbation -ICD, likely underlying HF Hx. -Aspirin, statin, beta-kim -Heparin drip stopped, now lovenox 1mg/kg -ECHO 02/28/23: EF 15-20%, severe hypokinesis of RV. dilation, moderate pulm HTN, IVC dilated. no comparable studies -flash pulmonary edema resolving -BNP improving, continue to monitor volume status -continues to have lower extremity edema bilaterally, bibasilar crackles. -once euvolemic will do stress test. per nursing staff this will be done sunday. Shock -Likely second A-fib with RVR, Aspiration pneumonia, Respiratory failure -pt has been off levophed with appropriate MAP since 08:00 03/02/23 -resolved A-fib with RVR -Currently heart rates in 60s, normal sinus rhythm -seen by cardiology yesterday, Cardizem stopped -Toprol XL 75mg BID started this AM -monitor medicatin adjustments per cards Syncope and collapse -With possible ICD defibrillation, will await interrogation Electrolyte Derangement: -improving, will give Mg this AM Diabetic leg ulcer -Bilateral diabetic sandoval ulcers -Wound care -Vancomycin, Zosyn -BCx pending. negative to date -Consulted gen surg. evaluated patient. no note present. per nursing staff wound care orders and dressings discussed with patient. bedside debridement completed. -bilateral arterial US of lower extremities: diffuse severe nonocclusive vascular disease in bilateral calf vessels Type 2 diabetes mellitus A1c, low-dose sliding scale PLAN: -transfer to [facility] -continue IV diuresis with close I&O's. possible stress test once euvolemic -repleate Mg -Monitor BP and HR. will uptitrate BB's as tolerated concidering Cardizem has been stopped 2/2 severely reduced LV systolic fnx. -Lovenox 1mg/kg -protonix -followed closely by Cardiology. Thank you for your care of this patient. -Full code Attestations Medical Necessity Statement*: Patient requires hospitalization for shock, A-fib RVR, aspiration pneumonia, respiratory failure, hypoxia, acute encephalopathy Coding Level of Care Code 03173 Diagnoses Atrial fibrillation with RVR I48.91 Syncope and collapse R55 New onset left bundle branch block (LBBB) I44.7 Hypomagnesemia E83.42 Hyperglycemia R73.9 Systolic CHF, acute on chronic I50.23 ICD (implantable cardioverter-defibrillator) discharge Z45.02 NSTEMI (non-ST elevated myocardial infarction) I21.4 Diabetic leg ulcer E11.622; L97.909 Goals of care, counseling/discussion Z71.89 Aspiration into airway T17.908A Aspiration pneumonia J69.0 Acute encephalopathy G93.40 Acute respiratory failure with hypoxia J96.01 Shock R57.9 Flash pulmonary edema J81.0 NORMA (acute kidney injury) N17.9 Abdominal wall hernia K43.9 Hypokalemia E87.6 Hypophosphatemia E83.39
[2023-03-03 07:37] LABS: Glucose Point of Care 127 mg/dL (70-110)
[2023-03-03 08:07] LABS: NT Pro B Type Natriuretic Pept 1868 pg/mL (0-125)
--- NOTE | 2023-03-03 10:42 | PM.PN ---
Subjective Subjective: Patient is overall feeling much better today. No chest pain. Vitals/I&O/Wt Last Vital Signs Temp 97.7 F 03/03/23 04:00 Pulse 78 03/03/23 09:27 Resp 16 03/03/23 09:27 BP 123/97 03/03/23 09:00 Pulse Ox 99 03/03/23 09:51 O2 Del Method Room Air 03/03/23 09:51 O2 Flow Rate 35 03/01/23 07:50 FiO2 24 03/02/23 18:00 03/02/23 03/03/23 03/03/23 22:59 06:59 14:59 Intake Total 1011.0909 / 1651.9079 50 / 1701.9079 240 / 240 Output Total 1000 / 1000 1000 / 2000 Balance 11.0909 / 651.9079 -950 / -298.0921 240 / 240 Weight last 48 hrs Weight 172 lb Weight 171 lb 14.4 oz Physical Exam Narrative: GENERAL: Patient is alert NECK: No jugular vein distension. [] HEENT: No cyanosis. No icterus. No pallor. [] HEART: Regular S1 and S2. LUNGS: Diminished air entry. CENTRAL NERVOUS SYSTEM: Grossly nonfocal. [] EXTREMITIES: Lower extremities with 1+ edema bilaterally. Urinary Catheter Management: Laird: Cath Placed During This Visit: yes Reason for Continuing Indwelling Catheter: Accurate Measurement of Urinary Output in Critically Ill Patients Urinary Catheter Date of Insertion: 02/28/23 Urinary Catheter Time of Insertion: 16:00 Data 03/03/23 03:59 03/03/23 03:59 Micro: Microbiology 03/01/23 08:07 Blood Culture - Preliminary Blood NEGATIVE TO DATE 03/01/23 06:54 Blood Culture - Preliminary Blood NEGATIVE TO DATE A&P Assessment and plan (1) NORMA (acute kidney injury): (2) Flash pulmonary edema: (3) Shock: (4) ICD (implantable cardioverter-defibrillator) discharge: (5) Atrial fibrillation with RVR: Plan Continue diuresis. He is feeling much better. Plan for stress test on Sunday. Continue Lovenox for now. At time of discharge will need Eliquis. Thank you for involving us with care of this patient. We will continue to follow. Please call with questions. Attestations Medical Necessity Statement*: Care expected to cross 2 midnigths. Coding Level of Care Code Acute Code for Chg Fwd Diagnoses NORMA (acute kidney injury) N17.9 Flash pulmonary edema J81.0 Shock R57.9 ICD (implantable cardioverter-defibrillator) discharge Z45.02 Atrial fibrillation with RVR I48.91
[2023-03-03] MEDS: pantoprazole 40 mg SDV IVP (11:23)
[2023-03-03] MEDS: metoprolol succinate ER (24 HR) 100 mg Tablet PO ×2 (11:23→17:47)
[2023-03-03] MEDS: aspirin 81 mg EC Tablet PO (11:23)
[2023-03-03] MEDS: spironolactone 25 mg Tablet PO (11:23)
[2023-03-03] MEDS: folic acid 1 mg Tablet PO (11:23)
[2023-03-03] MEDS: multivitamin therapeutic Tablet 1 TAB PO (11:24)
[2023-03-03] MEDS: atorvastatin 40 mg Tablet 20 MG PO (11:24)
[2023-03-03] MEDS: thiamine 100 mg Tablet PO (11:24)
[2023-03-03] MEDS: collagenase oint 30 gm 1 APPLIC TOPICAL (11:26)
[2023-03-03 11:42] LABS: Glucose Point of Care 191 mg/dL (70-110)
[2023-03-03] MEDS: insulin lispro 100 unit/1 mL SUBCUT ×2 (11:43→17:41)
[2023-03-03] MEDS: NON-FORMULARY MEDICATION (Sacubitril-Valsartan [Entresto] 49-51 mg Tablet) 1 EACH PO ×2 (12:28→17:47)
--- NOTE | 2023-03-03 13:42 | PC.NURSE ---
pt received from ICU pt has a triple picc line. pt stated it feels heavy and tender,site looks red, swollen and blisters noted around the site. radial pulse. dr notified. pt has diabetic foot ulcers.dressings has not been changed yet per pt.
--- NOTE | 2023-03-03 13:57 | USR_ITS ---
PROCEDURE INFORMATION: Exam: US Duplex Right Upper Extremity Veins, Limited Exam date and time: 03/03/2023 3:56 PM Age: 57 years old Clinical indication: Condition or disease; Other: Swelling RT arm; Additional info: Firmness and swelling on picc line site TECHNIQUE: Imaging protocol: Real-time duplex ultrasound of the right Upper Extremity with 2-D bender scale, color Doppler flow and spectral waveform analysis with image documentation. Limited exam focused on the right upper extremity veins. COMPARISON: [place] [id number] 02/28/2023 6:11 PM FINDINGS: Right deep veins: Hypoechoic, nonocclusive thrombus in the subclavian, axillary and brachial veins. The internal jugular, radial and ulnar veins are patent without thrombus. Right superficial veins: Hypoechoic, occlusive thrombus in the cephalic vein. Visualized basilic vein patent without thrombus. Soft tissues: Unremarkable. US/[place] [id number] IMPRESSION: Right upper extremity deep venous thrombosis, as described above.
[2023-03-03 16:45] LABS: Glucose Point of Care 145 mg/dL (70-110)
[2023-03-03 20:37] LABS: Glucose Point of Care 158 mg/dL (70-110)
[2023-03-04] VITALS (13 sets, daily range): BP systolic 103–129; BP diastolic 62–78; PULSE 65–79; RESP 14–24; TEMP 36.3–37; O2SAT 92–97
[2023-03-04] MEDS: piperacillin-tazobactam 3.375 GM in sodium chloride 0.9% (plus) 50 ML IV ×3 (03:59→19:52)
[2023-03-04] MEDS: vancomycin 1,250 MG/250 ML PIGGYBACK 250 MG IV ×2 (04:01→17:22)
[2023-03-04] MEDS: enoxaparin 80 mg/0.8 mL Syringe SUBCUT ×2 (04:05→17:21)
[2023-03-04 05:04] LABS: Basophils # 0.1 10^3/uL (0.0-0.1); Basophils % 0.9 %; Eosinophils # 0.2 10^3/uL (0.0-0.8); Eosinophils % 3.1 %; Hematocrit 39.4 % (42.0-52.0); Hemoglobin 12.9 g/dL (11.7-16.6); Lymphocytes # 1.6 10^3/uL (0.8-4.8); Lymphocytes % 27.4 %; Mean Corpuscular HGB Conc 32.7 g/dL (30.0-36.0); Mean Corpuscular Hemoglobin 27.3 pg (28.0-34.0); Mean Corpuscular Volume 83.3 fl (80-94); Mean Platelet Volume 10.5 fL (7.4-10.4); Monocytes # 0.3 10^3/uL (0.2-0.9); Monocytes % 5.1 %; Neutrophils # 3.71 10^3/uL (1.8-7.7); Nucleated Red Blood Cells % 0 %; Platelet Count 123 10^3/cmm (130-400); Red Blood Count 4.73 10^6/uL (4.1-5.3); Red Cell Distribution Width 12.5 % (12.1-15.1); White Blood Count 5.9 10^3/uL (4.0-10.0)
[2023-03-04 05:21] LABS: Lactate (Lactic Acid level) 0.8 mmol/L (0.5-2.2)
[2023-03-04 05:22] LABS: Alanine Aminotransferase 21 U/L (0-41); Albumin Level 2.9 g/dL (3.5-5.2); Alkaline Phosphatase 52 U/L (40-130); Anion Gap 13.9 (5-19); Aspartate Amino Transferase 24 U/L (0-40); Blood Urea Nitrogen 9 mg/dL (6-20); Calcium 8.4 mg/dL (8.5-10.5); Carbon Dioxide 20 mmol/L (22-29); Chloride 104 mmol/L (98-107); Globulin 3.4 g/dL (1.3-4.6); Glomerular Filtration Rate 139.4 mL/min (90-130); Glucose 107 mg/dL (65-115); Magnesium 1.5 mg/dL (1.7-2.3); Osmolality Calculated 277 mOsm/kg (285-295); Potassium 3.9 mmol/L (3.5-5.1); Sodium 134 mmol/L (136-145); Total Bilirubin 0.3 mg/dL (0.15-1.2); Total Protein 6.3 g/dL (6.6-8.7)
[2023-03-04 05:33] LABS: NT Pro B Type Natriuretic Pept 3392 pg/mL (0-125); Procalcitonin 3.51 ng/mL (0-0.5)
[2023-03-04 06:18] LABS: INR 1.04 (0.8-1.2)
[2023-03-04 06:43] LABS: Glucose Point of Care 127 mg/dL (70-110)
[2023-03-04] MEDS: aspirin 81 mg EC Tablet PO (08:19)
[2023-03-04] MEDS: spironolactone 25 mg Tablet PO (08:19)
[2023-03-04] MEDS: multivitamin therapeutic Tablet 1 TAB PO (08:19)
[2023-03-04] MEDS: thiamine 100 mg Tablet PO (08:19)
[2023-03-04] MEDS: atorvastatin 40 mg Tablet 20 MG PO (08:20)
[2023-03-04] MEDS: folic acid 1 mg Tablet PO (08:20)
[2023-03-04] MEDS: docusate sodium 100 mg Capsule PO (08:20)
[2023-03-04] MEDS: metoprolol succinate ER (24 HR) 100 mg Tablet PO ×2 (08:21→17:25)
[2023-03-04] MEDS: NON-FORMULARY MEDICATION (Sacubitril-Valsartan [Entresto] 49-51 mg Tablet) 1 EACH PO ×2 (08:22→17:26)
[2023-03-04] MEDS: levalbuterol 0.63 mg/3 mL Neb INHALATION (09:47)
[2023-03-04] MEDS: pantoprazole 40 mg SDV IVP (11:07)
[2023-03-04 11:17] LABS: Glucose Point of Care 190 mg/dL (70-110)
--- NOTE | 2023-03-04 11:59 | PM.PN ---
Subjective Subjective: Pt seen this AM. states he is overall feeling improved. Vitals/I&O/Wt Last Vital Signs Temp 98.4 F 03/04/23 08:36 Pulse 65 03/04/23 09:54 Resp 18 03/04/23 09:45 BP 121/69 03/04/23 08:00 Pulse Ox 97 03/04/23 09:45 O2 Del Method Room Air 03/04/23 09:45 O2 Flow Rate 35 03/01/23 07:50 FiO2 24 03/02/23 18:00 03/03/23 03/04/23 03/04/23 22:59 06:59 14:59 Intake Total 540 / 882 1020 / 1902 530 / 530 Output Total 500 / 1300 1450 / 2750 820 / 820 Balance 40 / -418 -430 / -848 -290 / -290 Weight last 48 hrs Weight 179 lb Weight 179 lb Weight 172 lb Physical Exam Narrative: Lines: IV R and L anticubital fossa General: AOx3, no acute distress, well developed, well nourished, appears stated age psych: appropriate mood and affect. good judgment and insight Head: atraumatic, normocephalic, no mass/lesions Eyes: conjunctiva clear w/o exudate or hemorrhage. non-icteric, EOM intact, PERRLA. no signs of nystagmus Nose: nasal mucosa pink, septum midline Oropharynx: poor dentition, Neck: FROM, no lymphadenopathy, Chest: atraumatic, symmetrical CVD: RRR, normal S1 and S2, no M/R/G. 2+ pulse x 4 extremities except at DP's at 1+ Lungs: poor airflow, distant lung sounds, no crackles/wheezing/rhonchi. Abdomen: NT, ND, soft, NABS. No hepatosplenomegaly, no mass. umbilicus midline w/o herniation Extremities: FROM and 5/5 strength in BUE and BLE. -bilat LE: venous stasis dermatitis with bandages C/D/I on anterior legs bilat. 1+ pulse at DP's. -R arm: mild swelling and ttp at anticubital fossa. PICC line intact, Neuro: CNII-XII grossly intact.no sensory abnormalities. Skin:? as above. Urinary Catheter Management: Laird: Cath Placed During This Visit: yes Reason for Continuing Indwelling Catheter: Accurate Measurement of Urinary Output in Critically Ill Patients Urinary Catheter Date of Insertion: 02/28/23 Urinary Catheter Time of Insertion: 16:00 Data 03/04/23 03:54 03/04/23 02:54 A&P Assessment and plan (1) Atrial fibrillation with RVR: (2) Syncope and collapse: resolved (3) New onset left bundle branch block (LBBB): (4) Hypomagnesemia: (5) Hyperglycemia: (6) Systolic CHF, acute on chronic: (7) ICD (implantable cardioverter-defibrillator) discharge: (8) NSTEMI (non-ST elevated myocardial infarction): (9) Diabetic leg ulcer: (10) Goals of care, counseling/discussion: (11) Aspiration into airway: (12) Aspiration pneumonia: (13) Acute encephalopathy: improving (14) Acute respiratory failure with hypoxia: (15) Shock: (16) Flash pulmonary edema: (17) NORMA (acute kidney injury): (18) Abdominal wall hernia: (19) DVT (deep venous thrombosis): Qualifiers: Affected thrombotic vein of extremity: popliteal Chronicity: acute DVT location: lower extremity Laterality: bilateral Qualified Code(s): I82.433 - Acute embolism and thrombosis of popliteal vein, bilateral Plan Acute encephalopathy -due to hypoxia, aspiration PNA, diabetic ulcer, sedating medication -resolved Acute respiratory failure -due to flash pulmonary edema, aspiration PNA -resolved. pt now off Bipap Acute aspiration pneumonia, with leukocytosis -continue zosyn systolic chf exacerbation -ICD, likely underlying HF Hx. -Aspirin, statin, beta-kim -Heparin drip stopped, now lovenox 1mg/kg -ECHO 02/28/23: EF 15-20%, severe hypokinesis of RV dilation, moderate pulm HTN, IVC dilated. no comparable studies -flash pulmonary edema resolving -BNP has slightly increased. Determined that lasix 40mg BID was not given yesterday. unclear as to computer glitch as it appears scheduled on my end but on hold from nursing standpoint. givne lasix 40mg IVP. will re-eval. may need to restart BID tomorrow -continues to have lower extremity edema bilaterally, bibasilar crackles. -once euvolemic will do stress test. per nursing staff this will be done sunday. Shock -Likely second A-fib with RVR, Aspiration pneumonia, Respiratory failure -pt has been off levophed with appropriate MAP since 08:00 03/02/23 -resolved A-fib with RVR -weaned off cardizem gtt 03/02/23, converted to PO, transitioned to Toprol XL 75mg BID -HR well controlled -followed by cardiology -will titrate BB if needed Syncope and collapse -With possible ICD defibrillation, will await interrogation Electrolyte Derangement: -improving, will give Mg this AM Diabetic leg ulcer -Bilateral diabetic sandoval ulcers -Wound care -Vancomycin, Zosyn -BCx pending. negative to date -Consulted gen surg. evaluated patient. no note present. per nursing staff wound care orders and dressings discussed with patient. bedside debridement completed. -bilateral arterial US of lower extremities: diffuse severe nonocclusive vascular disease in bilateral calf vessels Type 2 diabetes mellitus A1c, low-dose sliding scale DVT R upper extremity -PICC associated DVT -nonoclusive thrombus in the RIGHT subclavian/axillary/brachial veins -Occlusive thrombus in the cephalic vein -pt currently on 1mg/kg BID Lovenox dosage which is treatment dose -PICC line still in place as we need access for Abx (L anticubital fossa peripheral IV infiltrated), and it is still patent. if worsens will consider removal. PLAN: -CSU -continue IV diuresis with close I&O's. -repleate Mg, phos -Monitor BP and HR. will uptitrate BB's as tolerated considering Cardizem has been stopped 2/2 severely reduced LV systolic fnx. -Lovenox 1mg/kg BID -monitor DVT in RUE. at PICC site - no changes from yesterday -plan for stress test in AM with cardiology -protonix -followed closely by Cardiology. Thank you for your care of this patient. -Full code Attestations Medical Necessity Statement*: Patient requires hospitalization for shock, A-fib RVR, aspiration pneumonia, respiratory failure, hypoxia, acute encephalopathy. will require overnight x 2 Coding Level of Care Code 05994 Diagnoses Atrial fibrillation with RVR I48.91 Syncope and collapse R55 New onset left bundle branch block (LBBB) I44.7 Hypomagnesemia E83.42 Hyperglycemia R73.9 Systolic CHF, acute on chronic I50.23 ICD (implantable cardioverter-defibrillator) discharge Z45.02 NSTEMI (non-ST elevated myocardial infarction) I21.4 Diabetic leg ulcer E11.622; L97.909 Goals of care, counseling/discussion Z71.89 Aspiration into airway T17.908A Aspiration pneumonia J69.0 Acute encephalopathy G93.40 Acute respiratory failure with hypoxia J96.01 Shock R57.9 Flash pulmonary edema J81.0 NORMA (acute kidney injury) N17.9 Abdominal wall hernia K43.9 DVT (deep venous thrombosis) I82.433 Affected thrombotic vein of extremity: popliteal Chronicity: acute DVT location: lower extremity Laterality: bilateral
[2023-03-04] MEDS: insulin lispro 100 unit/1 mL SUBCUT ×2 (12:10→17:49)
[2023-03-04] MEDS: FUROsemide 10 mg/mL SDV 4mL 40 MG IVP (14:08)
[2023-03-04] MEDS: potassium phosphate (mEq K) 40 MEQ in sodium chloride 0.9% (100 ml) 100 ML 27.25 MEQ IV (14:14)
--- NOTE | 2023-03-04 16:22 | P.PN_ITS ---
Subjective Subjective: Patient is feeling much better. He is diuresing well. Vitals/I&O/Wt Last Vital Signs Temp 98.4 F 03/04/23 08:36 Pulse 75 03/04/23 14:00 Resp 16 03/04/23 12:00 BP 126/78 03/04/23 12:00 Pulse Ox 95 03/04/23 12:00 O2 Del Method Room Air 03/04/23 12:00 O2 Flow Rate 35 03/01/23 07:50 FiO2 24 03/02/23 18:00 03/04/23 03/04/23 03/04/23 06:59 14:59 22:59 Intake Total 1020 / 1902 1010 / 1010 102 / 1112 Output Total 1450 / 2750 820 / 820 Balance -430 / -848 190 / 190 102 / 292 Weight last 48 hrs Weight 179 lb Weight 179 lb Weight 172 lb Physical Exam Narrative: GENERAL: Patient is alert NECK: No jugular vein distension. [] HEENT: No cyanosis. No icterus. No pallor. [] HEART: Regular S1 and S2. LUNGS: Diminished air entry. CENTRAL NERVOUS SYSTEM: Grossly nonfocal. [] EXTREMITIES: Lower extremities with 1+ edema bilaterally. Urinary Catheter Management: Laird: Cath Placed During This Visit: yes Reason for Continuing Indwelling Catheter: Accurate Measurement of Urinary Output in Critically Ill Patients Urinary Catheter Date of Insertion: 02/28/23 Urinary Catheter Time of Insertion: 16:00 Data 03/05/23 02:16 03/05/23 02:16 A&P Assessment and plan (1) NORMA (acute kidney injury): (2) Flash pulmonary edema: (3) Shock: (4) ICD (implantable cardioverter-defibrillator) discharge: (5) Atrial fibrillation with RVR: Plan Patient is overall improving. Continue diuresis. Plan for stress test tomorrow. 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 We will try to obtain records from his prior cardiology office tomorrow and attempt interrogation again. Thank you for involving us with care of this patient. We will continue to follow. Please call with questions. Attestations Medical Necessity Statement*: Care expected to cross 2 midnights Coding Level of Care Code Acute Code for [facility] Diagnoses NORMA (acute kidney injury) N17.9 Flash pulmonary edema J81.0 Shock R57.9 ICD (implantable cardioverter-defibrillator) discharge Z45.02 Atrial fibrillation with RVR I48.91
[2023-03-04 17:16] LABS: Glucose Point of Care 166 mg/dL (70-110)
[2023-03-04] MEDS: collagenase oint 30 gm 1 APPLIC TOPICAL (17:23)
[2023-03-04 20:37] LABS: Glucose Point of Care 201 mg/dL (70-110)
[2023-03-05] VITALS (12 sets, daily range): BP systolic 86–116; BP diastolic 52–72; PULSE 68–78; RESP 12–25; TEMP 37; O2SAT 94–97
[2023-03-05] MEDS: FUROsemide 10 mg/mL SDV 4mL 40 MG IVP (01:09)
[2023-03-05 02:40] LABS: Basophils # 0.1 10^3/uL (0.0-0.1); Basophils % 0.8 %; Eosinophils # 0.2 10^3/uL (0.0-0.8); Eosinophils % 3.1 %; Hematocrit 46.7 % (42.0-52.0); Hemoglobin 15.2 g/dL (11.7-16.6); Lymphocytes # 1.9 10^3/uL (0.8-4.8); Lymphocytes % 28.9 %; Mean Corpuscular HGB Conc 32.5 g/dL (30.0-36.0); Mean Corpuscular Hemoglobin 27.2 pg (28.0-34.0); Mean Corpuscular Volume 83.5 fl (80-94); Monocytes # 0.4 10^3/uL (0.2-0.9); Monocytes % 6.5 %; Neutrophils % 60.2 %; Nucleated Red Blood Cells % 0 %; Platelet Count 140 10^3/cmm (130-400); Red Blood Count 5.59 10^6/uL (4.1-5.3); Red Cell Distribution Width 12.4 % (12.1-15.1); White Blood Count 6.5 10^3/uL (4.0-10.0)
[2023-03-05 02:57] LABS: Alanine Aminotransferase 26 U/L (0-41); Albumin Level 3.4 g/dL (3.5-5.2); Alkaline Phosphatase 66 U/L (40-130); Anion Gap 16.9 (5-19); Aspartate Amino Transferase 27 U/L (0-40); Blood Urea Nitrogen 15 mg/dL (6-20); Calcium 9.1 mg/dL (8.5-10.5); Carbon Dioxide 23 mmol/L (22-29); Chloride 100 mmol/L (98-107); Globulin 4.3 g/dL (1.3-4.6); Glomerular Filtration Rate 116.7 mL/min (90-130); Glucose 157 mg/dL (65-115); Osmolality Calculated 286 mOsm/kg (285-295); Potassium 3.9 mmol/L (3.5-5.1); Sodium 136 mmol/L (136-145); Total Bilirubin 0.4 mg/dL (0.15-1.2); Total Protein 7.7 g/dL (6.6-8.7)
[2023-03-05] MEDS: piperacillin-tazobactam 3.375 GM in sodium chloride 0.9% (plus) 50 ML IV (04:10)
[2023-03-05] MEDS: vancomycin 1,250 MG/250 ML PIGGYBACK 166 MG IV (04:46)
[2023-03-05] MEDS: enoxaparin 80 mg/0.8 mL Syringe SUBCUT ×2 (05:56→17:28)
[2023-03-05 06:30] LABS: Glucose Point of Care 141 mg/dL (70-110)
--- NOTE | 2023-03-05 08:24 | PM.PN ---
Subjective Subjective: Patient is overall doing well. Denies complaints of chest pain or shortness of breath. He is diuresing well. Vitals/I&O/Wt Last Vital Signs Temp 98.6 F 03/05/23 00:00 Pulse 72 03/05/23 05:07 Resp 18 03/05/23 04:00 BP 94/56 03/05/23 04:00 Pulse Ox 95 03/05/23 04:00 O2 Del Method Room Air 03/05/23 04:00 O2 Flow Rate 35 03/01/23 07:50 FiO2 24 03/02/23 18:00 03/04/23 03/05/23 03/05/23 22:59 06:59 14:59 Intake Total 1177.0909 / 2187.0909 50 / 2237.0909 250 / 250 Output Total 3270 / 4090 2460 / 6550 Balance -2092.9091 / -1902.9091 -2410 / -4312.9091 250 / 250 Weight last 48 hrs Weight 172 lb 1.6 oz Weight 179 lb Weight 179 lb Physical Exam Narrative: GENERAL: Patient is alert NECK: No jugular vein distension. [] HEENT: No cyanosis. No icterus. No pallor. [] HEART: Regular S1 and S2. LUNGS: Diminished air entry. CENTRAL NERVOUS SYSTEM: Grossly nonfocal. [] EXTREMITIES: Lower extremities with 1+ edema bilaterally. Urinary Catheter Management: Laird: Cath Placed During This Visit: yes Reason for Continuing Indwelling Catheter: Accurate Measurement of Urinary Output in Critically Ill Patients Urinary Catheter Date of Insertion: 02/28/23 Urinary Catheter Time of Insertion: 16:00 Data 03/06/23 02:13 03/06/23 02:13 A&P Assessment and plan (1) Deep vein thrombosis, upper right extremity: (2) Flash pulmonary edema: (3) Shock: (4) ICD (implantable cardioverter-defibrillator) discharge: (5) Atrial fibrillation with RVR: Plan Plan for stress test tomorrow. He had a DVT of right upper extremity. Currently on anticoagulation with Lovenox. Thank you for involving us with care of this patient. We will continue to follow. Please call with questions. Attestations Medical Necessity Statement*: Care expected to cross 2 midnights. Coding Level of Care Code Acute Code for [facility] Diagnoses Deep vein thrombosis, upper right extremity I82.621 Flash pulmonary edema J81.0 Shock R57.9 ICD (implantable cardioverter-defibrillator) discharge Z45.02 Atrial fibrillation with RVR I48.91
[2023-03-05] MEDS: aspirin 81 mg EC Tablet PO (08:47)
[2023-03-05] MEDS: thiamine 100 mg Tablet PO (08:47)
[2023-03-05] MEDS: multivitamin therapeutic Tablet 1 TAB PO (08:47)
[2023-03-05] MEDS: folic acid 1 mg Tablet PO (08:47)
[2023-03-05] MEDS: atorvastatin 40 mg Tablet 20 MG PO (08:47)
[2023-03-05] MEDS: spironolactone 25 mg Tablet PO (08:47)
[2023-03-05] MEDS: NON-FORMULARY MEDICATION (Sacubitril-Valsartan [Entresto] 49-51 mg Tablet) 1 EACH PO (08:48)
[2023-03-05] MEDS: insulin lispro 100 unit/1 mL SUBCUT ×3 (08:48→20:49)
[2023-03-05] MEDS: collagenase oint 30 gm 1 APPLIC TOPICAL (08:49)
[2023-03-05 11:13] LABS: Glucose Point of Care 314 mg/dL (70-110)
[2023-03-05] MEDS: midodrine 5 mg TABLET PO ×2 (12:10→20:51)
[2023-03-05] MEDS: pantoprazole 40 mg SDV IVP (12:10)
[2023-03-05] MEDS: gabapentin 100 mg Capsule 200 MG PO ×2 (12:10→20:51)
[2023-03-05 12:12] LABS: Iron 54 ug/dL (59-158); Percent Saturation 20.3 % (20-50); Total Iron Binding Capacity 266 mcg/dl; Unsaturated Iron Binding 212 ug/dL (112-347)
[2023-03-05 12:27] LABS: Procalcitonin 2.25 ng/mL (0-0.5); Vitamin B12 603 pg/mL (232-1245)
--- NOTE | 2023-03-05 12:37 | PM.PN ---
Subjective Subjective: Hospital course, labs appreciated. On examination patient sitting up in bed having his meal. He is awake and alert. Denies any nausea, vomiting, headache, dizziness or chest pain. Remains on room air. Complaining of pain in his feet bilaterally on standing up. Getting his wound dressings as per the direction from wound care prior to admission. Vitals appreciated. Blood pressures running on the lower side since last night. Today morning as low as 86 systolics. Metoprolol was withheld but did receive Entresto. Patient states he has a history of low blood pressures in the past and is on a medication to bring them up. Overall urine output appreciated. Around 4.3 L negative since admission. Blood work appreciated, normal white count and a hemoglobin and a creatinine of 0.7, blood sugars trending on the higher side. Medications reviewed. Restart home dose of midodrine. Patient states he checks his blood sugar at home and usually runs at 135 when he wakes up in the morning. Does not check his blood pressures regularly. He does state he is on a medication to keep his blood pressures up. He follows up with wound care doctor since moving to [place] but has not followed up for the primary care provider or watcher lookout tower. Medications: Reviewed: Yes Vitals/I&O/Wt Last Vital Signs Temp 98.6 F 03/05/23 00:00 Pulse 72 03/05/23 08:26 Resp 18 03/05/23 08:26 BP 86/56 03/05/23 08:00 Pulse Ox 96 03/05/23 08:26 O2 Del Method Room Air 03/05/23 08:26 O2 Flow Rate 35 03/01/23 07:50 FiO2 24 03/02/23 18:00 03/04/23 03/05/23 03/05/23 22:59 06:59 14:59 Intake Total 1177.0909 / 2187.0909 50 / 2237.0909 518 / 518 Output Total 3270 / 4090 2460 / 6550 Balance -2092.9091 / -1902.9091 -2410 / -4312.9091 518 / 518 Weight last 48 hrs Weight 78.063 kg Weight 81.193 kg Weight 81.193 kg Physical Exam Const: COMMON NORMALS: no acute distress and patient oriented x3 EXAM LIMITATIONS: altered mental status GENERAL APPEARANCE: cooperative, well kempt and well developed ORIENTATION/CONSCIOUSNESS: Yes awake, Yes oriented to person and Yes confused; not oriented to place and not oriented to time HENMT: COMMON NORMALS: normocephalic, Normal external nose present and oropharynx normal HEAD & SCALP: normocephalic FACE & SINUS: normal facial exam NOSE: Normal external nose present MOUTH: Normal oral and palatal mucosa present Eye: COMMON NORMALS: Equal, round and reactive pupils present, EOMs intact bilaterally, conjunctivae normal and no scleral icterus CONJUNCTIVA: Yes conjunctivae normal PUPIL: Yes Equal, round and reactive pupils present Neck/C-Spine: COMMON NORMALS: full ROM, no lymphadenopathy, no meningeal signs, no JVD, Thyroid normal and No carotid bruits THYROID: Thyroid normal Lymph: LYMPHATIC: no lymphadenopathy noted Chest: COMMONS NORMALS: normal inspection of the chest Resp: COMMON NORMALS: normal respiratory effort, No retractions, No use of accessory muscles and clear to auscultation bilaterally AUSCULTATION: clear to auscultation bilaterally, crackles and wheezes Cardio: COMMON NORMALS: no JVD, regular rate, regular rhythm, S1 normal heart sound present, S2 normal heart sound present and No murmurs present (Cardio) RATE: regular rate and tachycardic RHYTHM: regular rhythm and abnormal rhythm irregularly irregular HEART SOUNDS: S1 normal heart sound present and S2 normal heart sound present GI: COMMON NORMALS: Normal to inspection, nondistended, normoactive bowel sounds present, Soft to palpation, non-tender and No hepatosplenomegaly present PALPATION: Yes Soft to palpation and Yes No hepatosplenomegaly present OTHER: abdominal wall hernia reducible : COMMON NORMALS: Yes no CVA tenderness BLADDER/KIDNEY EXAM: Yes no CVA tenderness Back/Pelvis: COMMON NORMALS: no CVA tenderness Extremity: COMMON NORMALS: no pedal edema Neuro: COMMON NORMALS: patient oriented x3, CN's II-XII intact bilaterally, moves all extremities and no focal motor deficits SENSORIUM/ORIENTATION: Yes oriented to person, No oriented to place and No oriented to time MENINGEAL SIGNS: Yes no meningeal signs Psych: COMMON NORMALS: mental status grossly normal, Normal thought process present, cooperative and speech normal APPEARANCE: Yes well kempt SPEECH: Yes normal speech THOUGHT PROCESS: Normal thought process present Skin: COMMON NORMALS: turgor normal and no jaundice NARRATIVE SKIN EXAM: Bilateral shins, clean bandage. On removal as below -Bilateral shins have diabetic ulcers -More on the right measures 3 x 3 cm round, erythematous borders, serosanguineous discharge -The one of the left measures also 3 x 3 cm round, serosanguineous discharge GENERAL SKIN EXAM: turgor normal Urinary Catheter Management: Laird: Cath Placed During This Visit: yes Reason for Continuing Indwelling Catheter: Accurate Measurement of Urinary Output in Critically Ill Patients Urinary Catheter Date of Insertion: 02/28/23 Urinary Catheter Time of Insertion: 16:00 Data 03/05/23 02:16 03/05/23 02:16 A&P Assessment and plan (1) Hypotension: Chronic. Seems patient takes midodrine 5 mg 3 times daily at home. Restart midodrine 5 mg 3 times daily. Goal blood pressure less than 140/90 mmHg with mean over 65. Continue to monitor. Hold off on Entresto for now. Decrease dose of metoprolol. (2) Atrial fibrillation with RVR: Rate controlled. Given hypotension as above for now we will decrease the dose of metoprolol to 50 mg twice daily. Telemetry. Continue on full dose Lovenox 1 mg/kg body weight every 12 hourly. Takes Eliquis at home. (3) Syncope and collapse: Most likely in setting of respiratory failure, possible aspiration pneumonia and shock present on admission. Resolved. Physical therapy evaluation. Monitor blood pressures. (4) Systolic CHF, acute on chronic: Insetting of ischemic cardiomyopathy. Acute on chronic. Echocardiogram done shows an EF of 15 to 20%, dilated LV, global LV hypokinesia, grade 1 diastolic dysfunction with RVSP of 35 to 40 mmHg consistent with moderate pulmonary hypertension. Given history of CAD and possible non-ST elevation TN on admission plan for Lexiscan stress test within next 24 hours to rule out ischemic etiology. BHUPENDRA Laird. Strict input output charting, daily weights. Switch to oral Lasix 40 mg twice daily. Fluid restriction up to 1500 cc. (5) NSTEMI (non-ST elevated myocardial infarction): (6) Non-insulin dependent type 2 diabetes mellitus: A1c 6.4. Blood sugars trending up. Start on insulin sliding scale low-dose protocol. (7) Diabetic leg ulcer: Continue wound care as per outpatient wound care orders. Continue with IV antibiotics with vancomycin and Zosyn to finish a 5-day course. (8) Aspiration pneumonia: Resolved. Patient on room air. Continue IV antibiotics with vancomycin and Zosyn to finish a 5-day course. Blood cultures so far negative. Check MRSA swab. (9) New onset left bundle branch block (LBBB): (10) ICD (implantable cardioverter-defibrillator) discharge: Unable to interrogate as not sure of the commanding officer motorized squad. Awaiting documents from primary watcher lookout tower office. (11) Acute respiratory failure with hypoxia: (12) Flash pulmonary edema: (13) NORMA (acute kidney injury): Resolved. Monitor potassium. Restart oral potassium twice daily. (14) Hypomagnesemia: (15) Shock: Resolved. (16) Acute encephalopathy: Resolved. Present on admission most likely in setting of respiratory failure, shock and acute kidney injury. (17) Goals of care, counseling/discussion: Plan Full code Full dose Lovenox will suffice for DVT prophylaxis Protonix for PUD prophylaxis. Switch to cardiac carb consistent diet. N.p.o. after midnight. Discharge plan: Plan to discharge within next 24 to 48 hours depending on hemodynamics and stress test results. Plan to discharge home. Patient would need a primary care provider. Case management alerted. Attestations Medical Necessity Statement*: Requires further hospitalization for management of hypoxia in setting of congestive acute on chronic systolic heart failure while ischemic etiology is ruled out in a patient with hypotension leading to syncope Diagnoses Hypotension I95.9 Atrial fibrillation with RVR I48.91 Syncope and collapse R55 Systolic CHF, acute on chronic I50.23 NSTEMI (non-ST elevated myocardial infarction) I21.4 Non-insulin dependent type 2 diabetes mellitus E11.9 Diabetic leg ulcer E11.622; L97.909 Aspiration pneumonia J69.0 New onset left bundle branch block (LBBB) I44.7 ICD (implantable cardioverter-defibrillator) discharge Z45.02 Acute respiratory failure with hypoxia J96.01 Flash pulmonary edema J81.0 NORMA (acute kidney injury) N17.9 Hypomagnesemia E83.42 Shock R57.9 Acute encephalopathy G93.40 Goals of care, counseling/discussion Z71.89
--- NOTE | 2023-03-05 12:54 | ECG_ITS ---
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 Interpretive Statements NAME OF STUDY: LEXISCAN SESTAMIBI STRESS TEST INDICATION: [NONSTEMI] Procedure: At the baseline, the blood pressure was 102/69 mmHg with a heart rate of 69 bpm. The electrocardiogram showed normal sinus rhythm, normal axis with normal ST and T's. The Lexiscan was infused over a period of 20 seconds. A total of 0.4 mg of Lexiscan was infused. The stress phase was continued for a total of 5 minutes. Heart rate was at the end of stress phase was 85 bpm and a blood pressure of 86/57 mmHg. The EKG at the peak infusion revealed normal sinus rhythm with no significant ST-T wave changes. Sestamibi was injected 20 seconds after the Lexiscan infusion. Blood pressure at the end of recovery phase was 102/60 mmHg with a heart rate of 83 bpm. Conclusion: 1. Normal EKG response to Lexiscan infusion 2. No Lexiscan induced chest pain or cardiac arrhythmia. 3. Hypertensive blood pressure response and normal heart rate response. 4. Sestamibi/sestamibi perfusion scan pending; see separate report. Electronically Signed On 03-16-2023 14:45:46 CDT by Ismael Sue M.D. [email or web address]
[2023-03-05] MEDS: vancomycin 1,250 MG/250 ML PIGGYBACK 250 MG IV (16:59)
[2023-03-05] MEDS: FUROsemide 40 mg Tablet PO (16:59)
[2023-03-05 17:15] LABS: Glucose Point of Care 132 mg/dL (70-110)
[2023-03-05] MEDS: metoprolol succinate ER (24 HR) 50 mg Tablet PO (17:28)
[2023-03-05] MEDS: potassium chloride ER 20 mEq Tablet PO (17:28)
[2023-03-05 20:42] LABS: Glucose Point of Care 310 mg/dL (70-110)
[2023-03-06] VITALS (12 sets, daily range): BP systolic 102–140; BP diastolic 54–81; PULSE 60–83; RESP 1–24; O2SAT 90–100; BMI 26.9
[2023-03-06 04:05] LABS: Basophils # 0.1 10^3/uL (0.0-0.1); Basophils % 0.7 %; Eosinophils # 0.3 10^3/uL (0.0-0.8); Eosinophils % 4.4 %; Hematocrit 43.1 % (42.0-52.0); Hemoglobin 14.1 g/dL (11.7-16.6); Lymphocytes # 2.2 10^3/uL (0.8-4.8); Lymphocytes % 31.5 %; Mean Corpuscular HGB Conc 32.7 g/dL (30.0-36.0); Mean Corpuscular Hemoglobin 27.1 pg (28.0-34.0); Mean Corpuscular Volume 82.9 fl (80-94); Mean Platelet Volume 10.4 fL (7.4-10.4); Monocytes # 0.5 10^3/uL (0.2-0.9); Monocytes % 7.5 %; Neutrophils # 3.94 10^3/uL (1.8-7.7); Neutrophils % 55.5 %; Nucleated Red Blood Cells % 0 %; Platelet Count 146 10^3/cmm (130-400); Red Cell Distribution Width 12.6 % (12.1-15.1); White Blood Count 7.1 10^3/uL (4.0-10.0)
[2023-03-06 04:27] LABS: Alanine Aminotransferase 28 U/L (0-41); Albumin Level 3.3 g/dL (3.5-5.2); Alkaline Phosphatase 60 U/L (40-130); Anion Gap 13.2 (5-19); Aspartate Amino Transferase 29 U/L (0-40); Blood Urea Nitrogen 24 mg/dL (6-20); Calcium 8.8 mg/dL (8.5-10.5); Carbon Dioxide 23 mmol/L (22-29); Chloride 103 mmol/L (98-107); Globulin 3.9 g/dL (1.3-4.6); Glomerular Filtration Rate 87.3 mL/min (90-130); Glucose 158 mg/dL (65-115); Osmolality Calculated 287 mOsm/kg (285-295); Potassium 4.2 mmol/L (3.5-5.1); Sodium 135 mmol/L (136-145); Total Bilirubin 0.2 mg/dL (0.15-1.2); Total Protein 7.2 g/dL (6.6-8.7)
[2023-03-06 04:41] LABS: Folate Level 13.9 ng/mL (4.5-32.2)
[2023-03-06] MEDS: vancomycin 1,250 MG/250 ML PIGGYBACK 250 MG IV ×2 (05:44→17:36)
[2023-03-06] MEDS: enoxaparin 80 mg/0.8 mL Syringe SUBCUT ×2 (05:45→17:38)
--- NOTE | 2023-03-06 06:15 | NMCV_ITS ---
NM angelita perf SPECT r/s* [id number] Andrew Ruggiero Age: 57 Gender: M : 1965 Exam Date: 03/06/2023 06:30 Ordering Phys: Ishan Cedeno MD Technologist: NICOLA Mcdaniel Exam Location: [facility] Indications: CHEST PAIN STRESS TEST Please see separate stress [facility] for full findings IMAGE PROTOCOL Rest/Stress 1 Lexiscan Day Radiopharmaceutical Dose (mCi) Administration Site Administered by Rest: Tc-99m 10.8 IV Santiago Cruz, [employer] Sestamibi Stress:Tc-99m 32.8 IV Santiago Cruz, [employer] Sestamibi Rest: 06-Mar-2023 60 Discovery 630 Stress: 06-Mar-2023 30 Discovery 630 0.4mg Lexiscan. Supine position only as patient was unable to lay prone. SPECT RESULTS Technical Quality: Excellent Raw Data Analysis: Normal Image Corrections: No attenuation or motion correction applied Summed Stress Score: 1 Summed Rest Score: 1 Summed Difference Score: 1 PERFUSION FINDINGS There is a very small in size, reversible perfusion defect seen in apical lateral wall. This is consistent with small area of ischemia in left circumflex artery territory. FUNCTIONAL RESULTS (calculated via Gated SPECT) Stress Image LV EF (%): 29 Stress EDV (mL):148 TID: 0.97 Stress ESV (mL):105 FUNCTIONAL FINDINGS: LV systolic function is severely reduced with EF of 29% IMPRESSIONS 1. Small area of ischemia seen in the left circumflex artery territory. 2. LV systolic function is severely reduced with EF of 29% Ismael Sue MD (Electronically Signed) Final Date: 06 March 2023 09:53 S
--- NOTE | 2023-03-06 06:26 | PC.NURSE ---
Pt educated on PICC line removal and positioned in supine in bed. Removed dressing and inspected site. Skin around site was slighty swollen, previous skin irritation present surrounding picc insertion site, no drainage present. Area cleaned with Chlorhexidine using sterile technique. PICC line removed, cath intact, small blood clot at tip of cath present. Pressure held on site after removal, no bleeding or drainage present, no hemotoma. Site covered with gauze and tegederm.
[2023-03-06] MEDS: regadenoson 0.4 Mg/5 ml Syringe IVP (07:27)
[2023-03-06 08:27] LABS: Glucose Point of Care 185 mg/dL (70-110)
--- NOTE | 2023-03-06 08:31 | PM.PN ---
Subjective Subjective: Patient is overall stable. Stress test shows a very small area of ischemia in left circumflex artery territory. Vitals/I&O/Wt Last Vital Signs Temp 98.6 F 03/05/23 00:00 Pulse 78 03/06/23 08:00 Resp 15 03/06/23 08:00 BP 105/81 03/06/23 08:00 Pulse Ox 100 03/06/23 08:00 O2 Del Method Room Air 03/06/23 08:00 O2 Flow Rate 35 03/01/23 07:50 FiO2 24 03/02/23 18:00 03/05/23 03/06/23 03/06/23 22:59 06:59 14:59 Intake Total 650 / 1468 480 / 1948 Output Total 400 / 1100 700 / 1800 Balance 250 / 368 -220 / 148 Weight last 48 hrs Weight 172 lb 1.6 oz Weight 172 lb 1.6 oz Physical Exam Narrative: GENERAL: Patient is alert NECK: No jugular vein distension. [] HEENT: No cyanosis. No icterus. No pallor. [] HEART: Regular S1 and S2. LUNGS: Diminished air entry. CENTRAL NERVOUS SYSTEM: Grossly nonfocal. [] EXTREMITIES: Lower extremities with 1+ edema bilaterally. Urinary Catheter Management: Laird: Cath Placed During This Visit: yes, but has since been removed by the nurse Reason for Continuing Indwelling Catheter: Accurate Measurement of Urinary Output in Critically Ill Patients Urinary Catheter Date of Insertion: 02/28/23 Urinary Catheter Time of Insertion: 16:00 Date Urinary Catheter Removed: 03/05/23 Time Urinary Catheter Discontinued: 12:50 Data 03/06/23 02:13 03/06/23 02:13 Micro: Microbiology 03/01/23 08:07 Blood Culture - Final Blood NO GROWTH AFTER 5 DAYS 03/01/23 06:54 Blood Culture - Final Blood NO GROWTH AFTER 5 DAYS A&P Assessment and plan (1) Deep vein thrombosis, upper right extremity: (2) Flash pulmonary edema: (3) Shock: (4) ICD (implantable cardioverter-defibrillator) discharge: (5) Atrial fibrillation with RVR: Plan Stress test showed small sized area of ischemia in left circumflex artery territory. He has nonischemic cardiomyopathy. We will medically treat him. ICD device interrogation based on prior records. Thank you for involving us with care of this patient. We will continue to follow. Please call with questions. Attestations Medical Necessity Statement*: Care expected to cross 2 midnights. Coding Level of Care Code Acute Code for Chg Fwd Diagnoses Deep vein thrombosis, upper right extremity I82.621 Flash pulmonary edema J81.0 Shock R57.9 ICD (implantable cardioverter-defibrillator) discharge Z45.02 Atrial fibrillation with RVR I48.91
[2023-03-06] MEDS: insulin lispro 100 unit/1 mL SUBCUT ×3 (08:46→20:50)
[2023-03-06] MEDS: atorvastatin 40 mg Tablet 20 MG PO (08:47)
[2023-03-06] MEDS: multivitamin therapeutic Tablet 1 TAB PO (08:47)
[2023-03-06] MEDS: thiamine 100 mg Tablet PO (08:47)
[2023-03-06] MEDS: potassium chloride ER 20 mEq Tablet PO ×2 (08:48→17:37)
[2023-03-06] MEDS: gabapentin 100 mg Capsule 200 MG PO ×3 (08:48→20:50)
[2023-03-06] MEDS: midodrine 5 mg TABLET PO ×3 (08:48→20:50)
[2023-03-06] MEDS: folic acid 1 mg Tablet PO (08:48)
[2023-03-06] MEDS: aspirin 81 mg EC Tablet PO (08:49)
[2023-03-06] MEDS: metoprolol succinate ER (24 HR) 50 mg Tablet PO ×2 (08:49→17:37)
[2023-03-06] MEDS: FUROsemide 40 mg Tablet PO ×2 (08:49→15:23)
[2023-03-06 11:17] LABS: Glucose Point of Care 279 mg/dL (70-110)
--- NOTE | 2023-03-06 13:23 | P.PN_ITS ---
Subjective Subjective: No acute events overnight. Patient denies any nausea, vomiting, headache. Blood pressure stable for the last 24 hours. Documented urine output of around 1400 cc. Remains on room air. Able to ambulate well with physical therapy. Medications: Reviewed: Yes Vitals/I&O/Wt Last Vital Signs Temp 98.6 F 03/05/23 00:00 Pulse 81 03/06/23 11:33 Resp 17 03/06/23 11:33 BP 140/71 03/06/23 11:33 Pulse Ox 96 03/06/23 11:33 O2 Del Method Room Air 03/06/23 11:33 O2 Flow Rate 35 03/01/23 07:50 FiO2 24 03/02/23 18:00 03/05/23 03/06/23 03/06/23 22:59 06:59 14:59 Intake Total 650 / 1468 480 / 1948 1200 / 1200 Output Total 400 / 1100 700 / 1800 225 / 225 Balance 250 / 368 -220 / 148 975 / 975 Weight last 48 hrs Weight 78.063 kg Weight 78.063 kg Physical Exam Const: COMMON NORMALS: no acute distress and patient oriented x3 EXAM LIMITATIONS: altered mental status GENERAL APPEARANCE: cooperative, well kempt and well developed ORIENTATION/CONSCIOUSNESS: Yes awake, Yes oriented to person and Yes confused; not oriented to place and not oriented to time HENMT: COMMON NORMALS: normocephalic, Normal external nose present and oropharynx normal HEAD & SCALP: normocephalic FACE & SINUS: normal facial exam NOSE: Normal external nose present MOUTH: Normal oral and palatal mucosa present Eye: COMMON NORMALS: Equal, round and reactive pupils present, EOMs intact bilaterally, conjunctivae normal and no scleral icterus CONJUNCTIVA: Yes conjunctivae normal PUPIL: Yes Equal, round and reactive pupils present Neck/C-Spine: COMMON NORMALS: full ROM, no lymphadenopathy, no meningeal signs, no JVD, Thyroid normal and No carotid bruits THYROID: Thyroid normal Lymph: LYMPHATIC: no lymphadenopathy noted Chest: COMMONS NORMALS: normal inspection of the chest Resp: COMMON NORMALS: normal respiratory effort, No retractions, No use of accessory muscles and clear to auscultation bilaterally AUSCULTATION: clear to auscultation bilaterally, crackles and wheezes Cardio: COMMON NORMALS: no JVD, regular rate, regular rhythm, S1 normal heart sound present, S2 normal heart sound present and No murmurs present (Cardio) RATE: regular rate and tachycardic RHYTHM: regular rhythm and abnormal rhythm irregularly irregular HEART SOUNDS: S1 normal heart sound present and S2 normal heart sound present GI: COMMON NORMALS: Normal to inspection, nondistended, normoactive bowel s ounds present, Soft to palpation, non-tender and No hepatosplenomegaly present PALPATION: Yes Soft to palpation and Yes No hepatosplenomegaly present OTHER: abdominal wall hernia reducible : COMMON NORMALS: Yes no CVA tenderness BLADDER/KIDNEY EXAM: Yes no CVA tenderness Back/Pelvis: COMMON NORMALS: no CVA tenderness Extremity: COMMON NORMALS: no pedal edema Neuro: COMMON NORMALS: patient oriented x3, CN's II-XII intact bilaterally, moves all extremities and no focal motor deficits SENSORIUM/ORIENTATION: Yes oriented to person, No oriented to place and No oriented to time MENINGEAL SIGNS: Yes no meningeal signs Psych: COMMON NORMALS: mental status grossly normal, Normal thought process present, cooperative and speech normal APPEARANCE: Yes well kempt SPEECH: Yes normal speech THOUGHT PROCESS: Normal thought process present Skin: COMMON NORMALS: turgor normal and no jaundice NARRATIVE SKIN EXAM: Bilateral shins, clean bandage. On removal as below -Bilateral shins have diabetic ulcers -More on the right measures 3 x 3 cm round, erythematous borders, serosanguineous discharge -The one of the left measures also 3 x 3 cm round, serosanguineous discharge GENERAL SKIN EXAM: turgor normal Urinary Catheter Management: Laird: Cath Placed During This Visit: yes, but has since been removed by the nurse Reason for Continuing Indwelling Catheter: Accurate Measurement of Urinary Output in Critically Ill Patients Urinary Catheter Date of Insertion: 02/28/23 Urinary Catheter Time of Insertion: 16:00 Date Urinary Catheter Removed: 03/05/23 Time Urinary Catheter Discontinued: 12:50 Data 03/06/23 02:13 03/06/23 02:13 Micro: Microbiology 03/01/23 08:07 Blood Culture - Final Blood NO GROWTH AFTER 5 DAYS 03/01/23 06:54 Blood Culture - Final Blood NO GROWTH AFTER 5 DAYS A&P Assessment and plan (1) Hypotension: Improving. Goal blood pressure less than 140/90 mmHg with mean over 65. Continue with midodrine 5 mg 3 times daily, metoprolol 50 mg twice daily. Blood pressures improved will start home dose Entresto. (2) Atrial fibrillation with RVR: Rate controlled. Given hypotension as above for now we will decrease the dose of metoprolol to 50 mg twice daily. Telemetry. Continue on full dose Lovenox 1 mg/kg body weight every 12 hourly. We will switch to home dose of Eliquis on discharge. (3) Syncope and collapse: Most likely in setting of respiratory failure, possible aspiration pneumonia and shock present on admission. Resolved. Physical therapy evaluation. Monitor blood pressures. (4) Systolic CHF, acute on chronic: Insetting of ischemic cardiomyopathy. Acute on chronic. Echocardiogram done shows an EF of 15 to 20%, dilated LV, global LV hypokinesia, grade 1 diastolic dysfunction with RVSP of 35 to 40 mmHg consistent with moderate pulmonary hypertension. Appreciate Lexiscan results for mild area of ischemia. Plan for medical therapy as per cardiology team. Strict input output charting, daily weights. Continue with Lasix 40 mg twice daily. Monitor potassium. Fluid restriction up to 1500 cc. (5) NSTEMI (non-ST elevated myocardial infarction): (6) Non-insulin dependent type 2 diabetes mellitus: A1c 6.4. Blood sugars trending up. Start on insulin sliding scale low-dose protocol. (7) Diabetic leg ulcer: Continue wound care as per outpatient wound care orders. Continue with IV antibiotics with vancomycin and Zosyn to finish a 5-day course. (8) Aspiration pneumonia: Resolved. Patient on room air. Finished 5-day course of Zosyn. Last dose of vancomycin on 03/07. Blood cultures so far negative. (9) New onset left bundle branch block (LBBB): (10) ICD (implantable cardioverter-defibrillator) discharge: Unable to interrogate as not sure of the bottom finisher. Awaiting documents from primary personal injury legal assistant office. (11) Acute respiratory failure with hypoxia: (12) Flash pulmonary edema: (13) NORMA (acute kidney injury): Resolved. Potassium level stable today. Continue with oral potassium twice daily. (14) Hypomagnesemia: (15) Shock: Resolved. (16) Acute encephalopathy: Resolved. Present on admission most likely in setting of respiratory failure, shock and acute kidney injury. (17) Goals of care, counseling/discussion: Plan Full code Full dose Lovenox will suffice for DVT prophylaxis Protonix for PUD prophylaxis. Switch to cardiac carb consistent diet. N.p.o. after midnight. Discharge plan: Plan to discharge the next 24 hours if remains hemodynamically stable Attestations Medical Necessity Statement*: Requires further hospitalization for management meant of congestive heart failure in setting of atrial fibrillation and ischemic cardiomyopathy while IV antibiotic course is finished for aspiration pneumonia and safe discharge planning is sought Diagnoses Hypotension I95.9 Atrial fibrillation with RVR I48.91 Syncope and collapse R55 Systolic CHF, acute on chronic I50.23 NSTEMI (non-ST elevated myocardial infarction) I21.4 Non-insulin dependent type 2 diabetes mellitus E11.9 Diabetic leg ulcer E11.622; L97.909 Aspiration pneumonia J69.0 New onset left bundle branch block (LBBB) I44.7 ICD (implantable cardioverter-defibrillator) discharge Z45.02 Acute respiratory failure with hypoxia J96.01 Flash pulmonary edema J81.0 NORMA (acute kidney injury) N17.9 Hypomagnesemia E83.42 Shock R57.9 Acute encephalopathy G93.40 Goals of care, counseling/discussion Z71.89
[2023-03-06 16:58] LABS: Glucose Point of Care 123 mg/dL (70-110)
[2023-03-06 20:38] LABS: Glucose Point of Care 283 mg/dL (70-110)
[2023-03-06 21:34] LABS: Glucose Point of Care 250 mg/dL (70-110)
[2023-03-07 01:09] VITALS: BP 109/70; PULSE 62; RESP 14; O2SAT 100
[2023-03-07 04:45] VITALS: BP 101/60; PULSE 71; RESP 16
[2023-03-07] MEDS: enoxaparin 80 mg/0.8 mL Syringe SUBCUT (05:04)
[2023-03-07] MEDS: vancomycin 1,250 MG/250 ML PIGGYBACK 250 MG IV (05:05)
[2023-03-07 05:47] VITALS: PULSE 65; BMI 27.3
[2023-03-07 06:09] LABS: Basophils # 0.1 10^3/uL (0.0-0.1); Eosinophils # 0.4 10^3/uL (0.0-0.8); Eosinophils % 6.4 %; Hematocrit 43.8 % (42.0-52.0); Hemoglobin 14.2 g/dL (11.7-16.6); Lymphocytes # 2.1 10^3/uL (0.8-4.8); Lymphocytes % 36.3 %; Mean Corpuscular HGB Conc 32.4 g/dL (30.0-36.0); Mean Corpuscular Hemoglobin 27.5 pg (28.0-34.0); Mean Corpuscular Volume 84.9 fl (80-94); Mean Platelet Volume 10.2 fL (7.4-10.4); Monocytes # 0.4 10^3/uL (0.2-0.9); Monocytes % 7.6 %; Neutrophils # 2.82 10^3/uL (1.8-7.7); Neutrophils % 48.5 %; Nucleated Red Blood Cells % 0 %; Platelet Count 152 10^3/cmm (130-400); Red Blood Count 5.16 10^6/uL (4.1-5.3); Red Cell Distribution Width 12.8 % (12.1-15.1); White Blood Count 5.8 10^3/uL (4.0-10.0)
[2023-03-07 06:26] LABS: Alanine Aminotransferase 37 U/L (0-41); Albumin Level 3.1 g/dL (3.5-5.2); Alkaline Phosphatase 63 U/L (40-130); Anion Gap 16.7 (5-19); Aspartate Amino Transferase 40 U/L (0-40); Blood Urea Nitrogen 25 mg/dL (6-20); Calcium 8.9 mg/dL (8.5-10.5); Carbon Dioxide 19 mmol/L (22-29); Chloride 101 mmol/L (98-107); Globulin 4.2 g/dL (1.3-4.6); Glomerular Filtration Rate 116.7 mL/min (90-130); Glucose 108 mg/dL (65-115); Osmolality Calculated 279 mOsm/kg (285-295); Potassium 4.7 mmol/L (3.5-5.1); Sodium 132 mmol/L (136-145); Total Bilirubin 0.3 mg/dL (0.15-1.2); Total Protein 7.3 g/dL (6.6-8.7)
[2023-03-07 06:35] LABS: Glucose Point of Care 148 mg/dL (70-110)
--- NOTE | 2023-03-07 07:34 | PM.PN ---
Subjective Subjective: Patient is stable. No chest pain. Vitals/I&O/Wt Last Vital Signs Temp 98.6 F 03/05/23 00:00 Pulse 65 03/07/23 05:47 Resp 16 03/07/23 04:45 BP 101/60 03/07/23 04:45 Pulse Ox 100 03/07/23 01:09 O2 Del Method Room Air 03/06/23 20:00 O2 Flow Rate 35 03/01/23 07:50 FiO2 24 03/02/23 18:00 03/06/23 03/07/23 03/07/23 22:59 06:59 14:59 Intake Total 850 / 2050 250 / 2300 Output Total 850 / 1075 400 / 1475 Balance 0 / 975 -150 / 825 Weight last 48 hrs Weight 174 lb 3 oz Weight 172 lb 1.6 oz Physical Exam Narrative: GENERAL: Patient is alert NECK: No jugular vein distension. [] HEENT: No cyanosis. No icterus. No pallor. [] HEART: Regular S1 and S2. LUNGS: Diminished air entry. CENTRAL NERVOUS SYSTEM: Grossly nonfocal. [] EXTREMITIES: Lower extremities with 1+ edema bilaterally. Urinary Catheter Management: Laird: Cath Placed During This Visit: yes, but has since been removed by the nurse Reason for Continuing Indwelling Catheter: Accurate Measurement of Urinary Output in Critically Ill Patients Urinary Catheter Date of Insertion: 02/28/23 Urinary Catheter Time of Insertion: 16:00 Date Urinary Catheter Removed: 03/05/23 Time Urinary Catheter Discontinued: 12:50 Data 03/07/23 04:41 03/07/23 04:41 Micro: Microbiology 03/05/23 13:00 MRSA Culture - Final Nose 03/01/23 08:07 Blood Culture - Final Blood NO GROWTH AFTER 5 DAYS 03/01/23 06:54 Blood Culture - Final Blood NO GROWTH AFTER 5 DAYS A&P Assessment and plan (1) Deep vein thrombosis, upper right extremity: (2) Flash pulmonary edema: (3) Shock: (4) ICD (implantable cardioverter-defibrillator) discharge: (5) Atrial fibrillation with RVR: Plan Patient is stable. Continue current medications. Patient is stable to be discharged home cardiology standpoint. Please call with questions Attestations Medical Necessity Statement*: Care expected to cross 2 midnights. Coding Level of Care Code Acute Code for Chg Fwd Diagnoses Deep vein thrombosis, upper right extremity I82.621 Flash pulmonary edema J81.0 Shock R57.9 ICD (implantable cardioverter-defibrillator) discharge Z45.02 Atrial fibrillation with RVR I48.91
[2023-03-07 08:00] VITALS: BP 122/74; PULSE 78; PULSE 92; RESP 16; RESP 29; O2SAT 94; O2SAT 96
--- NOTE | 2023-03-07 08:40 | P.DS_ITS ---
Discharge Providers Date of Admission: 02/28/23 11:31 Date of Discharge: March 07, 2023 Attending Provider at Admission: Davey Chaney MD Attending Provider at Discharge: Ishan Cedeno MD Consults: Cardiology: Dr. Sue Diagnoses at Discharge Discharge Diagnosis (1) Deep vein thrombosis, upper right extremity: Status: Acute (2) Flash pulmonary edema: Status: Acute (3) Shock: Status: Acute (4) ICD (implantable cardioverter-defibrillator) discharge: Status: Acute (5) Atrial fibrillation with RVR: Status: Acute Reason for Visit Reason for Visit: unresponsive now responsive Brief History: History as per HPI: Andrew Ruggiero is a 57 year old male with a past medical history of CHF, systolic, ICD in place, denies a history of CAD, history of atrial fibrillation on Eliquis, history of noninsulin-dependent type 2 diabetes mellitus, smoker, hypertension, hyperlipidemia, on Entresto, history of abdominal wall hernia history of chronic diabetic foot ulcers, history of diabetic neuropathy, who presents to [facility] due to feeling lightheaded and dizzy this morning.? He tells me that he is originally from [place], he recently moved to [place] to be with his family for the last month, this morning he tells me that he already has diabetic ulcers on his bilateral shins, but this morning his leg felt weak, more swollen, he felt short of breath, he tells me that at 1 point when he got up he lost consciousness, he thinks he might of had an syncopal episode, but he does not remember the event, denies any chest pain, denies any palpitations, denies his ICD going off, when EMS arrived to his home, he was unresponsive, but began responding, he is found to be in A-fib with RVR, given 20 mg of Cardizem, he was given another IV push of Cardizem, on arrival, patient with heart rates 120s to 130s, atrial fibrillation, he does not remember being shocked, does not remember having chest pain, or palpitations, but does feel short of breath does have lower extremity edema, he is not sure how much metoprolol he is taking there is some discrepancy in how much metoprolol he should be taking.? He was started on the Cardizem drip, hospitalist team was called for admission, on arrival, currently patient's systolics are in the 110s, diastolic in 80s, heart rates in the 110s, atrial fibrillation, nursing staff are attempting to interrogate pacemaker, he is alert awake, following all commands, he tells me that roughly a few months ago, his pacemaker did go off, and he remembers that significantly he does not feel like it went off this time, he complains of lower extremity edema, feeling short of breath, he is also hungry he wants to eat something he has not eaten anything this morning he tells me. Hospital Course Hospital Course Patient was admitted to the hospital further evaluation and management of syncope and collapse. He was found to be in A-fib with RVR on admission with concerns for non-ST elevation AL and respiratory failure. On admission patient was also found to be in acute kidney injury. There was also concern for bilateral diabetic skin ulcers for which he was started on aggressive broad- spectrum antibiotics. Respiratory failure was thought to be secondary to combination of congestive heart failure and aspiration pneumonia. Given concerns for possible ICD discharge cardiology was consulted. ICD could not be interrogated for the longest as outpatient hold cardiology documents were not available from his previous providers up in [place]. Eventually ICD was interrogated. Overall patient was started on treatment with IV diuresis, IV Cardizem drip for A-fib and broad-spectrum antibiotics with requirement of noninvasive ventilation on and off. Patient slowly responded to the treatment. His respiratory failure resolved with diuresis. He finished up course of IV antibiotics for possible infection. His blood cultures and sputum culture remain negative during hospitalization. Gradually with diuresis his NORMA resolved. After stabilization he underwent Lexiscan stress test which showed a small area of ischemia in LCx. Decision was made by cardiology to treat him medically. His hospitalization was complicated by him developing hypotension for which his home dose of midodrine was increased. Patient worked well with physical therapy. He has been discharged in hemodynamically stable condition on midodrine 10 mg 3 times a day, metoprolol 50 mg twice daily while his home dose of Entresto, Eliquis has been continued. He is to follow-up with his primary care provider and Juliane Lang from [facility] onset appointment within next 1 week. He is to check his blood pressures daily at home and maintain a blood pressure diary for further adjustment of medications on his follow-up. Physical Exam 2 Const: COMMON NORMALS: no acute distress and patient oriented x3 EXAM LIMITATIONS: altered mental status GENERAL APPEARANCE: cooperative, well kempt and well developed ORIENTATION/CONSCIOUSNESS: Yes awake, Yes oriented to person and Yes confused; not oriented to place and not oriented to time HENMT: COMMON NORMALS: normocephalic, Normal external nose present and oropharynx normal HEAD & SCALP: normocephalic FACE & SINUS: normal facial exam NOSE: Normal external nose present MOUTH: Normal oral and palatal mucosa present Eye: COMMON NORMALS: Equal, round and reactive pupils present, EOMs intact bilaterally, conjunctivae normal and no scleral icterus CONJUNCTIVA: Yes conjunctivae normal PUPIL: Yes Equal, round and reactive pupils present Neck/C-Spine: COMMON NORMALS: full ROM, no lymphadenopathy, no meningeal signs, no JVD, Thyroid normal and No carotid bruits THYROID: Thyroid normal Lymph: LYMPHATIC: no lymphadenopathy noted Chest: COMMONS NORMALS: normal inspection of the chest Resp: COMMON NORMALS: normal respiratory effort, No retractions, No use of accessory muscles and clear to auscultation bilaterally AUSCULTATION: clear to auscultation bilaterally, crackles and wheezes Cardio: COMMON NORMALS: no JVD, regular rate, regular rhythm, S1 normal heart sound present, S2 normal heart sound present and No murmurs present (Cardio) RATE: regular rate and tachycardic RHYTHM: regular rhythm and abnormal rhythm irregularly irregular HEART SOUNDS: S1 normal heart sound present and S2 normal heart sound present GI: COMMON NORMALS: Normal to inspection, nondistended, normoactive bowel sounds present, Soft to palpation, non-tender and No hepatosplenomegaly present PALPATION: Yes Soft to palpation and Yes No hepatosplenomegaly present OTHER: abdominal wall hernia reducible : COMMON NORMALS: Yes no CVA tenderness BLADDER/KIDNEY EXAM: Yes no CVA tenderness Back/Pelvis: COMMON NORMALS: no CVA tenderness Extremity: COMMON NORMALS: no pedal edema Neuro: COMMON NORMALS: patient oriented x3, CN's II-XII intact bilaterally, moves all extremities and no focal motor deficits SENSORIUM/ORIENTATION: Yes oriented to person, No oriented to place and No oriented to time MENINGEAL SIGNS: Yes no meningeal signs Psych: COMMON NORMALS: mental status grossly normal, Normal thought process present, cooperative and speech normal APPEARANCE: Yes well kempt SPEECH: Yes normal speech THOUGHT PROCESS: Normal thought process present Skin: COMMON NORMALS: turgor normal and no jaundice NARRATIVE SKIN EXAM: Bilateral shins, clean bandage. On removal as below -Bilateral shins have diabetic ulcers -More on the right measures 3 x 3 cm round, erythematous borders, serosanguineous discharge -The one of the left measures also 3 x 3 cm round, serosanguineous discharge GENERAL SKIN EXAM: turgor normal Urinary Catheter Management: Laird: Cath Placed During This Visit: yes, but has since been removed by the nurse Reason for Continuing Indwelling Catheter: Accurate Measurement of Urinary Output in Critically Ill Patients Urinary Catheter Date of Insertion: 02/28/23 Urinary Catheter Time of Insertion: 16:00 Date Urinary Catheter Removed: 03/05/23 Time Urinary Catheter Discontinued: 12:50 Discharge Data Studies Completed and Pending Completed Studies During Hospitalization Category Date Time Status Sestamibi Stress Test Request Routine Exams 03/05/23 12:54 Draft XR chest 1V portable [id number] Routine Exams 03/01/23 09:46 Completed XR chest 1V portable [id number] Stat Exams 02/28/23 08:09 Completed XR chest 1V portable [id number] Stat Exams 02/28/23 20:10 Completed NM angelita perf SPECT r/s* [id number] Routine Nuc Med 03/06/23 06:15 Completed CV. echo complete* [id number] Stat Ultrasound 02/28/23 11:13 Completed US arterial duplex lower extremity bilat [CV arterial Ultrasound 02/28/23 14:04 [place] [id number]] Routine US venous duplex upper extremity RT [CV venous duplex Ultrasound 03/03/23 13:57 [place] [id number]] Routine Radiology Impressions Duplex Scan Lower Extremity Artery 02/28/23 14:04 IMPRESSION: Diffuse severe nonocclusive vascular disease in the bilateral calf vessels bilaterally Otherwise No stenosis or occlusion. Chest X-Ray 03/01/23 09:46 IMPRESSION: 1. No acute findings. 2. Right side PICC line in the SVC 3. Cardiac device left anterior chest Venous Duplex 03/03/23 13:57 IMPRESSION: Right upper extremity deep venous thrombosis, as described above. ADDENDUM: 03/03/23 [id number] ADDENDUM: THIS REPORT CONTAINS FINDINGS THAT MAY BE CRITICAL TO PATIENT CARE. The findings were verbally communicated via telephone conference with MARKEL Vee at 4:53 PM CDT on 03/03/2023. The findings were acknowledged and understood. Echocardiogram FINDINGS ?Left Ventricle ?Left ventricle is dilated.? LV systolic function is severely?reduced with EF of 15-20%.? Severe global hypokinesis seen. ?Grade 1 diastolic dysfunction ?Right Ventricle ?RV is moderate to severely hypokinetic.Pacemaker lead is seen ?Right Atrium ?The right atrium is normal in size.? Pacemaker lead is seen ?Left Atrium ?Dilated ?Mitral Valve ?Grossly normal. Mild mitral regurgitation. ?Aortic Valve ?Grossly normal. No significant stenosis or regurgitation. ?Tricuspid Valve ?Mild tricuspid regurgitation. RVSP is 35-40mmHg. This is?consistent with moderate pulmonary hypertension. ?Pulmonic Valve ?Not well visualized ?Pericardium ?Normal pericardium without effusion. ?Aorta ?Normal ascending aorta dimension. ?IVC ?Dilated ?CONCLUSIONS ?Left ventricle is dilated.? LV systolic function is severely?reduced with EF of 15-20%.? ?RV is moderate to severely hypokinetic. ?Dilated?Mild mitral regurgitation. ?Mild tricuspid regurgitation?moderate pulmonary hypertension. ?IVC is dilated ?No comparison studies are available ?Ismael Sue MD ?(Electronically Signed) ?Final Date:? ? ? 01 March 2023 ? 18:45 Lexiscan stress test: PERFUSION FINDINGS ?There is a very small in size, reversible perfusion defect seen in apical?lateral wall.? This is consistent with small area of ischemia in left ?circumflex artery territory. ?FUNCTIONAL RESULTS ? ? (calculated via Gated SPECT) ? Stress Image LV EF (%):? ? 29 ? Stress EDV (mL):148? TID:? 0.97 ? Stress ESV (mL):105 ?FUNCTIONAL FINDINGS: ?LV systolic function is severely reduced with EF of 29% ?IMPRESSIONS ?1. Small area of ischemia seen in the left circumflex artery territory. ?2. LV systolic function is severely reduced with EF of 29% ?Ismael Sue MD ?(Electronically Signed) ?Final Date:? ? ? 06 March 2023 ? 09:53 Laboratory Results WBC 5.8 10^3/uL (4.0-10.0) 03/07/23 04:41 RBC 5.16 10^6/uL (4.1-5.3) 03/07/23 04:41 Hgb 14.2 g/dL (11.7-16.6) 03/07/23 04:41 Hct 43.8 % (42.0-52.0) 03/07/23 04:41 MCV 84.9 fl (80-94) 03/07/23 04:41 MCH 27.5 pg (28.0-34.0) L 03/07/23 04:41 MCHC 32.4 g/dL (30.0-36.0) 03/07/23 04:41 RDW 12.8 % (12.1-15.1) 03/07/23 04:41 Plt Count 152 10^3/cmm (130-400) 03/07/23 04:41 MPV 10.2 fL (7.4-10.4) 03/07/23 04:41 Neut % (Auto) 48.5 % 03/07/23 04:41 Lymph % (Auto) 36.3 % 03/07/23 04:41 [place] % (Auto) 7.6 % 03/07/23 04:41 Eos % (Auto) 6.4 % 03/07/23 04:41 Baso % (Auto) 1.0 % 03/07/23 04:41 Neut # (Auto) 2.82 10^3/uL (1.8-7.7) 03/07/23 04:41 Lymph # (Auto) 2.1 10^3/uL (0.8-4.8) 03/07/23 04:41 [place] # (Auto) 0.4 10^3/uL (0.2-0.9) 03/07/23 04:41 Eos # (Auto) 0.4 10^3/uL (0.0-0.8) 03/07/23 04:41 Baso # (Auto) 0.1 10^3/uL (0.0-0.1) 03/07/23 04:41 Nucleated RBC % (auto) 0 % 03/07/23 04:41 Nucleated RBCs # 0.0 /100WBC 03/07/23 04:41 PT 13.90 SECONDS (12.1-14.9) 03/04/23 03:54 INR 1.04 (0.8-1.2) 03/04/23 03:54 APTT 32.2 SECONDS (23.9-36.7) 03/02/23 16:28 Specimen Type Venous 03/01/23 06:26 Sample Site Not specified 03/01/23 06:26 ABG pH 7.41 (7.35-7.45) 02/28/23 21:13 ABG pCO2 20.7 mmHg (35-45) L 02/28/23 21:13 ABG pO2 123.0 mmHg (80.0-100.0) H 02/28/23 21:13 ABG HCO3 13.2 mmol/L (22-26) L 02/28/23 21:13 ABG O2 Saturation 99.7 02/28/23 21:13 ABG Base Excess -8.7 mmol/L (-2.0-2.0) L 02/28/23 21:13 Angel Test N/a 03/01/23 06:26 VBG pH 7.28 (7.32-7.42) L 03/01/23 06:26 VBG pCO2 40.1 mmHg (41-51) L 03/01/23 06:26 VBG pO2 41.1 mmHg (25-40) H 03/01/23 06:26 VBG HCO3 18.8 mmol/L (24-28) L 03/01/23 06:26 VBG Base Excess -7.5 mmol/L (-3.0-3.0) L 03/01/23 06:26 VBG Hematocrit 46.7 % (42-52) 03/01/23 06:26 A-a O2 Gradient 12.4 mmHg (5-10) H 02/28/23 21:13 Hematocrit 47.3 % (42-52) 02/28/23 21:13 Hgb O2 Saturation 98.2 % (95-100) 02/28/23 21:13 Carboxyhemoglobin 1.2 %THgb (0.4-20.1) 02/28/23 21:13 Methemoglobin 0.3 % (0.4-1.5) L 02/28/23 21:13 Total Hemoglobin 15.4 g/dL (14-18) 02/28/23 21:13 Sodium 135.0 mmol/L (131-143) 02/28/23 21:13 Potassium 4.0 mmol/L (3.5-5.0) 02/28/23 21:13 Glucose 156.0 mg/dL (70-115) H 02/28/23 21:13 Ionized Calcium 1.1 mmol/L (1.1-1.4) 02/28/23 21:13 O2 Delivery Device Bipap 03/01/23 06:26 FiO2 35.0 % 03/01/23 06:26 Materials Associate ID Shan 03/01/23 06:26 Sodium 132 mmol/L (136-145) L 03/07/23 04:41 Potassium 4.7 mmol/L (3.5-5.1) 03/07/23 04:41 Chloride 101 mmol/L (98-107) 03/07/23 04:41 Carbon Dioxide 19 mmol/L (22-29) L 03/07/23 04:41 Anion Gap 16.7 (5-19) 03/07/23 04:41 BUN 25 mg/dL (6-20) H 03/07/23 04:41 Creatinine 0.7 mg/dL (0.7-1.2) 03/07/23 04:41 GFR Calculation 116.7 mL/min (90-130) 03/07/23 04:41 Glucose 108 mg/dL (65-115) 03/07/23 04:41 POC Glucose 148 mg/dL (70-110) H 03/07/23 06:22 Estimat Average Glucose 137 02/28/23 10:25 Hemoglobin A1c 6.4 % (4.0-6.0) H 02/28/23 10:25 Calculated Osmolality 279 mOsm/kg (285-295) L 03/07/23 04:41 Lactic Acid 1.1 mmol/L (0.5-2.2) 02/28/23 10:25 Lactate 0.8 mmol/L (0.5-2.2) 03/04/23 02:54 Calcium 8.9 mg/dL (8.5-10.5) 03/07/23 04:41 Phosphorus 2.0 mg/dL (2.5-4.5) L 03/04/23 02:54 Magnesium 1.5 mg/dL (1.7-2.3) L 03/04/23 02:54 Iron 54 ug/dL (59-158) L 03/05/23 02:16 TIBC 266 mcg/dl 03/05/23 02:16 % Saturation 20.3 % (20-50) 03/05/23 02:16 Unsat Iron Binding 212 ug/dL (112-347) 03/05/23 02:16 Total Bilirubin 0.3 mg/dL (0.15-1.2) 03/07/23 04:41 AST 40 U/L (0-40) 03/07/23 04:41 ALT 37 U/L (0-41) 03/07/23 04:41 Alkaline Phosphatase 63 U/L (40-130) 03/07/23 04:41 Troponin T Baseline 27 ng/L (0-15) H 02/28/23 10:25 Troponin T 120 Minute 26.04 ng/L (0-15) H 02/28/23 12:08 Delta Troponin T -0.96 ABS# (0-10) L 02/28/23 12:08 Troponin T Hi Sens 6Hr 43.63 ng/L (0-15) H 02/28/23 16:40 Troponin T Hi Sens 6Hr Delta 16.63 ng/L (0-12) H* 02/28/23 16:40 C-Reactive Protein 18.0 mg/L (0.0-4.9) H 03/04/23 02:54 NT-Pro-B Natriuret Pep 3392 pg/mL (0-125) H 03/04/23 02:54 Total Protein 7.3 g/dL (6.6-8.7) 03/07/23 04:41 Albumin 3.1 g/dL (3.5-5.2) L 03/07/23 04:41 Globulin 4.2 g/dL (1.3-4.6) 03/07/23 04:41 Triglycerides 52 mg/dL (0-150) 02/28/23 10:25 Cholesterol 60 mg/dL (0-200) 02/28/23 10:25 LDL Cholesterol, Calc 28 mg/dL (50-129) L 02/28/23 10:25 HDL Cholesterol 22 mg/dL (60-100) L 02/28/23 10:25 LDL/HDL Ratio 1.27 RATIO (0.00-3.22) 02/28/23 10:25 Cholesterol/HDL Ratio 2.73 mg/dL (1.0-5.00) 02/28/23 10:25 Vitamin B12 603 pg/mL (232-1245) 03/05/23 02:16 Folate 13.9 ng/mL (4.5-32.2) 03/06/23 02:13 Procalcitonin 2.25 ng/mL (0-0.5) H 03/05/23 02:16 TSH 3.59 uIU/mL (0.27-4.20) 02/28/23 10:25 Urine Color Yellow (Yellow) 02/28/23 20:31 Urine Appearance Sl cloudy (CLEAR) A 02/28/23 20:31 Urine pH 5 (5-7) 02/28/23 20:31 Ur Specific [place] 1.015 (1.005-1.030) 02/28/23 20:31 Urine Protein 1+ (Negative) H 02/28/23 20:31 Urine Glucose (UA) Norm (Normal) 02/28/23 20:31 Urine Ketones Negative (Negative) 02/28/23 20:31 Urine Blood 3+ (Negative) H 02/28/23 20:31 Urine Nitrate Negative (Negative) 02/28/23 20:31 Urine Bilirubin Neg (Negative) 02/28/23 20:31 Urine Urobilinogen Norm mg/dL (Negative) 02/28/23 20:31 Ur Leukocyte Esterase 2+ (Negative) H 02/28/23 20:31 Urine RBC None /hpf (0-2) 02/28/23 09:09 Urine WBC Rare /hpf (0-5) 02/28/23 09:09 Ur Squamous Epith Cells Rare /hpf (0-5) 02/28/23 09:09 Amorphous Sediment Not Reportable 02/28/23 09:09 Urine Bacteria 1+ /hpf (NONE) H 02/28/23 09:09 Hyaline Casts 0-4 /lpf H 02/28/23 09:09 Fine Granular Casts 0-4 /lpf H 02/28/23 09:09 Urine Mucus 2+ /hpf 02/28/23 09:09 Vancomycin Trough 11.9 ug/mL (10-15) 03/02/23 16:28 Urine Opiates Screen Negative ng/mL (Negative) 02/28/23 20:31 Ur Barbiturates Screen Negative ng/mL (Negative) 02/28/23 20:31 Ur Phencyclidine Scrn Negative ng/mL (Negative) 02/28/23 20:31 Ur Amphetamines Screen Negative ng/mL (Negative) 02/28/23 20:31 U Benzodiazepines Scrn Positive ng/mL (Negative) H 02/28/23 20:31 Urine Cocaine Screen Negative ng/mL (Negative) 02/28/23 20:31 U Marijuana (THC) Screen Negative ng/mL (Negative) 02/28/23 20:31 Ethyl Alcohol < 10 mg/dL (0-10) 02/28/23 10:25 Vitals Last Vital Signs Temp 98.6 F 03/05/23 00:00 Pulse 92 03/07/23 08:00 Resp 29 H 03/07/23 08:00 BP 122/74 03/07/23 08:00 Pulse Ox 96 03/07/23 08:00 O2 Del Method Room Air 03/07/23 08:00 O2 Flow Rate 35 03/01/23 07:50 FiO2 24 03/02/23 18:00 Discharge Plan Discharge Patient Disposition: Home Condition: Stable Prescriptions: New gabapentin 100 mg Capsule 200 mg PO TID 30 Days Qty: 180 0RF Thera 400 mcg Tablet 1 tab PO DAILY 30 Days Qty: 30 0RF Continued Eliquis 5 mg tablet 5 mg PO BID Qty: 60 0RF Lipitor 10 mg Tablet 10 mg PO DAILY metoprolol succinate 100 mg Tablet Extended Release 24 Hr 50 mg PO BID potassium chloride 20 mEq Tablet Extended Release 20 meq PO BID Lasix 40 mg Tablet See Rx Instructions .ROUTE .COMPLEX Rx Instructions: 40mg po qam and 80mg po at bedtime metformin 500 mg Tablet 500 mg PO BID aspirin 81 mg Tablet,Delayed Release (Dr/Ec) 81 mg PO DAILY Stool Softener 100 mg Capsule 100 mg PO BID Entresto 49-51 mg Tablet 1 tab PO BID Changed midodrine 10 mg Tablet 10 mg PO TID 30 Days Qty: 90 0RF Rx Instructions: (rx bottle empty dated 11/08/22) Discontinued spironolactone 25 mg Tablet 25 mg PO DAILY Rx Instructions: (rx bottle empty dated 06/13/22) Discharge Orders: Discharge Order (Routine); Ordered 03/07/23 Ordered By: Ishan Cedeno Referrals: Ismael Sue M.D [Physician] - 1 month (During your follow-up with Juliane Lang you will be scheduled for an follow-up with Dr. Sue with in 1 month. If you have any questions or need to reschedule. Please call ) Brooke De Los Santos MD [Staff Physician] - 03/16/23 10:00 am (Please follow-up with Brooke De Los Santos on March 16 at 10:00A.M. If you have any questions or need to reschedule. Please call ) Juliane Lang FNP [Nurse Practitioner] - 03/14/23 10:15 am (Please follow-up with Juliane Lang on March 14 at 10:15A.M. If you have any questions or need to reschedule. Please call ) Discharge Diet: Cardiac and Diabetic Discharge Activity: Resume usual activity and Increase activity as tolerated Patient Instructions: Multivitamins, Adult Formula (By mouth), Gabapentin (By mouth), A-fib (Atrial Fibrillation) (DC), Acute Kidney Injury (DC), Syncope (DC ), Deep Vein Thrombosis (DC), Opioid Safety Activity Restrictions/Additional Instructions: Dose of midodrine has been increased to 10 mg twice daily. All the other medications including metoprolol, Entresto have been continue with the same dose. Continue taking Lasix as before. Do not explanatory for now. Please check your blood pressure daily at home and maintain a blood pressure di giulia and follow-up with a primary care provider and with nurse blood pressure from cardiology onsite appointments for further adjustments of medications as needed. Please call [phone] for assistance with medicaid Discharge Attestations Time Spent in Discharge Care*: greater than 30 min Specific Discharge Activities: educating patient, educating and/or supporting family/caregiver, discussing with pcp/other providers, discussing with shelter case manager/social workers/dc planners, documenting/other paperwork and evaluating patient/reviewing data Status at Discharge: Cognitive status at discharge: cognitively intact , Behavioral status at discharge: cooperative , Functional status at discharge: independent ambulation , Overall status at discharge: patient is back to baseline Quality Metrics Clinical Quality Measures [ No reported AMI, CVA or VTE this stay] Coding Level of Care Code 94930 Total time (in minutes) for Discharge: 50 Diagnoses Deep vein thrombosis, upper right extremity I82.621 Flash pulmonary edema J81.0 Shock R57.9 ICD (implantable cardioverter-defibrillator) discharge Z45.02 Atrial fibrillation with RVR I48.91
[2023-03-07] MEDS: atorvastatin 40 mg Tablet 20 MG PO (09:20)
[2023-03-07] MEDS: gabapentin 100 mg Capsule 200 MG PO (09:50)
[2023-03-07] MEDS: folic acid 1 mg Tablet PO (09:52)
[2023-03-07] MEDS: multivitamin therapeutic Tablet 1 TAB PO (09:52)
[2023-03-07] MEDS: docusate sodium 100 mg Capsule PO (09:53)
[2023-03-07] MEDS: metoprolol succinate ER (24 HR) 50 mg Tablet PO (09:53)
[2023-03-07] MEDS: midodrine 5 mg TABLET PO (09:53)
[2023-03-07] MEDS: aspirin 81 mg EC Tablet PO (09:53)
[2023-03-07] MEDS: pantoprazole DR 40 mg Tablet PO (09:54)
[2023-03-07] MEDS: thiamine 100 mg Tablet PO (09:54)
[2023-03-07] MEDS: FUROsemide 40 mg Tablet PO (10:01)
[2023-03-07] MEDS: insulin lispro 100 unit/1 mL SUBCUT (10:01)
[2023-03-07] MEDS: potassium chloride ER 20 mEq Tablet PO (10:02)
[2023-03-07 11:30] VITALS: BP 122/74; PULSE 78; RESP 16; TEMP 36.8; O2SAT 94
[2023-03-07 11:43] LABS: Glucose Point of Care 240 mg/dL (70-110)
== END 2023-03-07 12:38 | disposition home or self-care (01) | DRG 308 ==
LOC: ER 11:16 → ER IP 13:21 → CSU 15:31 → ICU 18:26 → CSU 03-03 12:50
PROVIDERS: Family Medicine; Internal Medicine; Admitting Provider Family Medicine; Emergency Provider Family Medicine; Visit Provider Student in an Organized Health Care Education/Training Program
DX: I48.91 Unspecified atrial fibrillation (principal); I50.23 Acute on chronic systolic (congestive) heart failure; J69.0 Pneumonitis due to inhalation of food and vomit; J96.01 Acute respiratory failure with hypoxia; T82.818A Embolism due to vascular prosthetic devices, implants and grafts, initial encounter; N17.9 Acute kidney failure, unspecified; I24.8 Other forms of acute ischemic heart disease; G93.49 Other encephalopathy; Z95.810 Presence of automatic (implantable) cardiac defibrillator; Y82.9 Unspecified medical devices associated with adverse incidents; I11.0 Hypertensive heart disease with heart failure; Z79.01 Long term (current) use of anticoagulants; E11.40 Type 2 diabetes mellitus with diabetic neuropathy, unspecified; E11.51 Type 2 diabetes mellitus with diabetic peripheral angiopathy without gangrene; E11.65 Type 2 diabetes mellitus with hyperglycemia; F17.200 Nicotine dependence, unspecified, uncomplicated; E78.5 Hyperlipidemia, unspecified; I95.9 Hypotension, unspecified; Z79.84 Long term (current) use of oral hypoglycemic drugs; Z79.82 Long term (current) use of aspirin; I25.5 Ischemic cardiomyopathy; R55 Syncope and collapse; E83.42 Hypomagnesemia; I44.7 Left bundle-branch block, unspecified; F12.90 Cannabis use, unspecified, uncomplicated
CPT/HCPCS: 36415; 36416; 36569; 36592; 36600; 51702; 71045; 78452; 80051; 80053; 80061; 80202; 80306; 80307; 81001; 81003; 82330; 82607; 82746; 82803; 82805; 82962; 83036; 83540; 83550; 83605; 83735; 83880; 84100; 84145; 84443; 84484; 85025; 85610; 85730; 86140; 87040; 87641; 93005; 93017; 93306; 93925; 93971; 94640; 94660; 94664; 96365; 96367; 96372; 96374; 96375; 96376; 97116; 97161; 99291; A9500; C1751; C9113; J0282; J1630; J1644; J1650; J1815; J1940; J2060; J2543; J2785; J3370; J3411; J3475; J3490; J7060; J7614

== ENCOUNTER → 2023-03-16 10:26 | Outpatient (BNVA) | payer MEDICAID, SELFPAY | PROVIDERS: PCP Family Medicine; Visit Provider Family Medicine | DX: E83.42 Hypomagnesemia (principal) | CPT/HCPCS: 80048; 83735 ==

== ENCOUNTER → 2023-03-30 14:54 | Outpatient (BNVA) | payer MEDICAID, SELFPAY | PROVIDERS: PCP Family Medicine; Visit Provider Thoracic Surgery (Cardiothoracic Vascular Surgery) | DX: E11.622 Type 2 diabetes mellitus with other skin ulcer (principal); I87.2 Venous insufficiency (chronic) (peripheral); L97.812 Non-pressure chronic ulcer of other part of right lower leg with fat layer exposed; L97.822 Non-pressure chronic ulcer of other part of left lower leg with fat layer exposed | CPT/HCPCS: 11042; 11045 ==

== ENCOUNTER → 2023-04-13 14:09 | Outpatient (BNVA) | payer MEDICAID, SELFPAY | PROVIDERS: PCP Family Medicine; Visit Provider Thoracic Surgery (Cardiothoracic Vascular Surgery) | DX: E11.52 Type 2 diabetes mellitus with diabetic peripheral angiopathy with gangrene (principal); E11.622 Type 2 diabetes mellitus with other skin ulcer; L97.811 Non-pressure chronic ulcer of other part of right lower leg limited to breakdown of skin; L97.822 Non-pressure chronic ulcer of other part of left lower leg with fat layer exposed | CPT/HCPCS: 11042; 11045; 97597 ==

== ENCOUNTER → 2023-04-20 15:39 | Outpatient (BNVA) | payer MEDICAID, SELFPAY | PROVIDERS: PCP Family Medicine Adult Medicine; Visit Provider Thoracic Surgery (Cardiothoracic Vascular Surgery) | DX: E11.52 Type 2 diabetes mellitus with diabetic peripheral angiopathy with gangrene (principal); I87.2 Venous insufficiency (chronic) (peripheral); L97.812 Non-pressure chronic ulcer of other part of right lower leg with fat layer exposed; L97.822 Non-pressure chronic ulcer of other part of left lower leg with fat layer exposed | CPT/HCPCS: 11042; 11045 ==

== ENCOUNTER 2023-04-25 11:15 | Emergency (ER) | payer MEDICAID, SELFPAY ==
[2023-04-25 11:20] VITALS: BP 137/89; PULSE 92; RESP 18; TEMP 36.8; O2SAT 95
--- NOTE | 2023-04-25 12:08 | ED_ITS ---
HPI - Extremity Problem General: Chief complaint: Extremity Problem,Nontraumatic Stated complaint: Leg Pain Time Seen by Provider: 04/25/23 11:24 Source: patient Mode of arrival: ambulatory Limitations: no limitations History of Present Illness: Patient is a 57-year-old male who presents to ED today after his home health nurse suggested he go to the ED for DVT rule out to his left lower extremity. Ever schaefer has an extensive past medical history including chronic bilateral anterior lower extremity ulcers. He states these are being managed by wound care weekly as well as home health visits/dressings. He states today his home health nurse noted that his left calf seem to be swollen and he did complain of some discomfort thus prompting their suggestion to the ED. Patient states he takes Eliquis daily and has not missed any dosing on this. He does not complain of any chest pain, shortness of breath, difficulty breathing. MD Complaint: extremity pain Onset (ago): day(s) Pain Consistency: constant Location: left and lower extremity Radiation: none Relieving factors: nothing Exacerbating factors: nothing Associated symptoms: Reports no associated symptoms; Deny chest pain or fever(s) Review of Systems Const: Denies: fever(s), chills, body aches, fatigue or malaise Card: Denies: chest pain Resp: Denies: dyspnea GI: Denies: abdominal pain, nausea, vomiting or diarrhea Musc: Reports: extremity pain and extremity swelling; Denies: neck pain, back pain, joint pain, joint swelling, joint redness, joint warmth or limited range of motion Skin/Breast: Reports: other (bilateral chronic leg ulcers) Neuro: Denies: headache(s), numbness in extremities, weakness in extremities or sensory changes [facility] PFSH: Medical History Abdominal wall hernia Atrial fibrillation CHF (congestive heart failure) EF 15-20% on 03/30 Diabetes type 2, controlled History of non-ST elevation myocardial infarction (NSTEMI) Hypertension Neuropathy Peripheral vascular disease Surgical History History of implantable cardioverter-defibrillator (ICD) placement Family History Mother CAD (coronary artery disease) Social History Smoking and tobacco status: current every day smoker cigarettes [ Other cigarette details: 1.5 pack per day x 40 years, currently down to 3-4 cig/day] Alcohol intake: current Alcohol intake frequency: 3 or more drinks per day Alcohol type: beer Substance/Drug Use: former Date of last use: marijuana in 2021 Household members: children Marital status: Single Number of children: 2 Number of grandchildren: 0 Current occupational status: disabled Special duc needs: No Agree to transfusion: Yes Physical Exam Const: COMMON NORMALS: patient oriented x3, no limitations, alert and well nourished GENERAL APPEARANCE: cooperative and disheveled ORIENTATION/CO NSCIOUSNESS: Yes awake, Yes oriented to person, Yes oriented to place and Yes oriented to time Chest: COMMONS NORMALS: normal inspection of the chest and normal palpation of entire chest wall Resp: COMMON NORMALS: normal respiratory effort and clear to auscultation bilaterally AUSCULTATION: clear to auscultation bilaterally Cardio: COMMON NORMALS: regular rate and regular rhythm RATE: regular rate RHYTHM: regular rhythm Extremity: COMMON NORMALS: full ROM and capillary refill normal NARRATIVE EXTREMITY EXAM: bilateral LE edema with chronic anterior sandoval ulcers-these are clean and dressed and do not appear acutely infected; pt reports some mild calf pain with palpation; no obviously positive Mehrdad's sign; extremity NV intact GENERAL: Yes normal exam except as noted Neuro: COMMON NORMALS: patient oriented x3, moves all extremities, no focal motor deficits and no sensory deficits noted SENSORIUM/ORIENTATION: Yes alert, Yes oriented to person, Yes oriented to place and Yes oriented to time Skin: NARRATIVE SKIN EXAM: see above Course Vital Signs: Vital signs: Vital Signs Temperature 98.2 F 04/25/23 11:20 Pulse Rate 92 04/25/23 11:20 Respiratory Rate 18 04/25/23 11:20 Blood Pressure 137/89 04/25/23 11:20 Pulse Oximetry 95 04/25/23 11:20 Oxygen Delivery Me thod Room Air 04/25/23 11:20 MDM - Extremity (Nontraumatic) Medical Decision Making US negative. Patient has follow-up with wound care already scheduled for Sunday. None of his chronic ulcers to his lower extremity appear acutely infected. Patient is stable from an ED standpoint. Discharge Plan Discharge Patient Disposition: Home Clinical Impression: Diabetic leg ulcer Condition: Stable Prescriptions: No Action Eliquis 5 mg tablet 5 mg PO BID Qty: 60 5RF aspirin 81 mg tablet,delayed release (DR/EC) 81 mg PO DAILY Qty: 90 3RF Lipitor 10 mg tablet 10 mg PO DAILY Qty: 30 5RF Lasix 40 mg tablet See Rx Instructions .ROUTE .COMPLEX Qty: 90 5RF Rx Instructions: 40mg po qam and 80mg po at bedtime gabapentin 100 mg capsule 200 mg PO TID Qty: 90 5RF metformin 500 mg tablet 500 mg PO BID Qty: 60 5RF midodrine 10 mg tablet 10 mg PO TID 30 Days Qty: 90 5RF Rx Instructions: (rx bottle empty dated 11/08/22) metoprolol succinate 100 mg tablet extended release 24 hr 50 mg PO BID Qty: 60 5RF multivitamin with folic acid [Tab-A-Sathya] 400 mcg tablet 1 tab PO DAILY Qty: 90 3RF potassium chloride 20 mEq tablet extended release 20 meq PO BID Qty: 60 5RF Entresto 49-51 mg tablet 1 tab PO BID Qty: 60 5RF Discharge Orders: Discharge ED (Routine); Ordered 04/25/23 Ordered By: Clair Shields Referrals: Jourdan Awad MD [Primary Care Provider] - Coding Level of Care Code ED Automation Engineer for Cecily Wood
--- NOTE | 2023-04-25 12:08 | USCV_ITS ---
Andrew Ruggiero Age: 57 Gender: M : 1965 Exam Date: 04/25/2023 12:27 Ordering Phys: Clair Shields Technologist: CT Exam Location: [facility] [place]_ Indication: left swelling, pain PROCEDURES: Venous duplex imaging was performed in only the left lower extremity. In addition, the posterior tibial and peroneal trunk were evaluated. On the left side, the common femoral, superficial femoral, profunda femoral, popliteal, posterior tibial, greater saphenous veins, and the peroneal trunk were identified and interrogated in the standard fashion. FINDINGS: Normal 2-D Doppler and augmentation and compressibility throughout the lower extremity venous structures. Additional imaging through the proximal calf veins also reveals no thrombus. Limited evaluation of the greater saphenous vein is patent with no thrombus. CONCLUSIONS No DVT left lower extremity. Dr. Viola Saenz DO (Electronically Signed) Final Date: 25 April 2023 13:34 S
== END 2023-04-25 12:58 | disposition home or self-care (01) ==
PROVIDERS: Emergency Provider Physician Assistant; PCP Family Medicine Adult Medicine
DX: E11.622 Type 2 diabetes mellitus with other skin ulcer (principal); L97.929 Non-pressure chronic ulcer of unspecified part of left lower leg with unspecified severity; I11.0 Hypertensive heart disease with heart failure; I50.9 Heart failure, unspecified; I48.91 Unspecified atrial fibrillation; E11.40 Type 2 diabetes mellitus with diabetic neuropathy, unspecified; E11.51 Type 2 diabetes mellitus with diabetic peripheral angiopathy without gangrene; F17.210 Nicotine dependence, cigarettes, uncomplicated; Z79.01 Long term (current) use of anticoagulants; Z79.84 Long term (current) use of oral hypoglycemic drugs; Z79.82 Long term (current) use of aspirin; Z95.810 Presence of automatic (implantable) cardiac defibrillator
CPT/HCPCS: 93971; 99284

== ENCOUNTER → 2023-04-27 15:39 | Outpatient (BNVA) | payer MEDICAID, SELFPAY | PROVIDERS: PCP Family Medicine Adult Medicine; Visit Provider Thoracic Surgery (Cardiothoracic Vascular Surgery) | DX: E11.52 Type 2 diabetes mellitus with diabetic peripheral angiopathy with gangrene (principal); I87.2 Venous insufficiency (chronic) (peripheral); L97.812 Non-pressure chronic ulcer of other part of right lower leg with fat layer exposed; L97.822 Non-pressure chronic ulcer of other part of left lower leg with fat layer exposed | CPT/HCPCS: 11042; 11045 ==

== ENCOUNTER → 2023-05-04 13:00 | Outpatient (BNVA) | payer MEDICAID, SELFPAY | PROVIDERS: PCP Family Medicine Adult Medicine; Visit Provider Thoracic Surgery (Cardiothoracic Vascular Surgery) | DX: E11.52 Type 2 diabetes mellitus with diabetic peripheral angiopathy with gangrene (principal); E11.622 Type 2 diabetes mellitus with other skin ulcer; I87.2 Venous insufficiency (chronic) (peripheral); L97.812 Non-pressure chronic ulcer of other part of right lower leg with fat layer exposed; L97.822 Non-pressure chronic ulcer of other part of left lower leg with fat layer exposed | CPT/HCPCS: 11042; 11045; A6220; A6237; A6250 ==

== ENCOUNTER → 2023-05-14 10:55 | Outpatient (BNVA) | payer MEDICAID, SELFPAY | PROVIDERS: PCP Family Medicine Adult Medicine; Visit Provider Thoracic Surgery (Cardiothoracic Vascular Surgery) | DX: E11.52 Type 2 diabetes mellitus with diabetic peripheral angiopathy with gangrene (principal); L97.822 Non-pressure chronic ulcer of other part of left lower leg with fat layer exposed; L97.812 Non-pressure chronic ulcer of other part of right lower leg with fat layer exposed; L89.892 Pressure ulcer of other site, stage 2 | CPT/HCPCS: 29581; A6252 ==

== ENCOUNTER → 2023-05-16 12:38 | Outpatient (BNVA) | payer MEDICAID, SELFPAY | PROVIDERS: PCP Family Medicine Adult Medicine; Visit Provider Internal Medicine | DX: I48.91 Unspecified atrial fibrillation (principal); I73.9 Peripheral vascular disease, unspecified; I11.0 Hypertensive heart disease with heart failure; I50.9 Heart failure, unspecified; I82.621 Acute embolism and thrombosis of deep veins of right upper extremity; E11.9 Type 2 diabetes mellitus without complications; F17.210 Nicotine dependence, cigarettes, uncomplicated; Z79.01 Long term (current) use of anticoagulants; Z79.84 Long term (current) use of oral hypoglycemic drugs | CPT/HCPCS: 99214 ==

== ENCOUNTER → 2023-05-18 13:20 | Outpatient (BNVA) | payer MEDICAID, SELFPAY | PROVIDERS: PCP Family Medicine Adult Medicine; Visit Provider Thoracic Surgery (Cardiothoracic Vascular Surgery) | DX: E11.52 Type 2 diabetes mellitus with diabetic peripheral angiopathy with gangrene (principal); L97.812 Non-pressure chronic ulcer of other part of right lower leg with fat layer exposed; L97.822 Non-pressure chronic ulcer of other part of left lower leg with fat layer exposed; L89.892 Pressure ulcer of other site, stage 2 | CPT/HCPCS: 11042; 11045; 87070; 87077; 87176; 87186; 87205; 97597; 97598; A6252 ==

== ENCOUNTER → 2023-05-25 14:44 | Outpatient (BNVA) | payer MEDICAID, SELFPAY | PROVIDERS: PCP Family Medicine Adult Medicine; Visit Provider Thoracic Surgery (Cardiothoracic Vascular Surgery) | DX: E11.52 Type 2 diabetes mellitus with diabetic peripheral angiopathy with gangrene (principal); I87.2 Venous insufficiency (chronic) (peripheral); L97.812 Non-pressure chronic ulcer of other part of right lower leg with fat layer exposed; L97.822 Non-pressure chronic ulcer of other part of left lower leg with fat layer exposed; Z09 Encounter for follow-up examination after completed treatment for conditions other than malignant neoplasm | CPT/HCPCS: 11042; 11045; 97597; A6252 ==

== ENCOUNTER 2023-05-27 13:33 | Emergency (ER) | payer MEDICAID, SELFPAY ==
[2023-05-27 13:41] VITALS: BP 82/55; PULSE 105; RESP 17; TEMP 36.4; O2SAT 96; BMI 26.6
--- NOTE | 2023-05-27 14:32 | CTR_ITS ---
PROCEDURE INFORMATION: Exam: CT Abdomen And Pelvis Without Contrast Exam date and time: 05/27/2023 3:33 PM Age: 57 years old Clinical indication: Abdominal pain, fall TECHNIQUE: Imaging protocol: Computed tomography of the abdomen and pelvis without contrast. Radiation optimization: All CT scans at this facility use at least one of these dose optimization techniques: automated exposure control; mA and/or kV adjustment per patient size (includes targeted exams where dose is matched to clinical indication); or iterative reconstruction. REPORTING DATA: Count of CT and Cardiac NM exams in prior 12 months: This patient has received [address] and 0 known cardiac nuclear medicine studies in the 12 months prior to the current study. COMPARISON: CR XR chest 1V portable [id number] 03/01/2023 8:56 AM RADIATION DOSE METRICS: Total DLP (mGy-cm): 696.59 FINDINGS: Liver: Normal. No mass. Gallbladder and bile ducts: Normal. No calcified stones. No ductal dilation. Pancreas: Coarse calcifications noted at the pancreatic head which likely reflects sequela of chronic pancreatitis. No ductal dilation. Spleen: Normal. No splenomegaly. Adrenal glands: Normal. No mass. Kidneys and ureters: Normal. No hydronephrosis. Stomach and bowel: Unremarkable. No obstruction. No mucosal thickening. Appendix: No evidence of appendicitis. Intraperitoneal space: Unremarkable. No free air. No significant fluid collection. Vasculature: Unremarkable. No abdominal aortic aneurysm. Lymph nodes: Unremarkable. No enlarged lymph nodes. Urinary bladder: Unremarkable as visualized. Reproductive: Unremarkable as visualized. Bones/joints: No acute fracture. Soft tissues: Fat containing periumbilical hernia noted with the hernia sac measuring 4.2 x 7.1 cm. No herniated bowel loops. CT/CT abdomen pelvis con [id number] IMPRESSION: 1. No acute traumatic intra-abdominal findings. 2. Additional findings as described in the body of the report.
--- NOTE | 2023-05-27 14:32 | ECG_ITS ---
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
--- NOTE | 2023-05-27 14:33 | W.ED.FALL ---
HPI - Fall General: Chief Complaint: Fall Stated Complaint: BACK/ABD PAIN Time Seen by Provider: 05/27/23 14:03 Source: patient Mode of arrival: EMS History of Present Illness: 57-year-old male presents to the emergency room after slipping and falling in the shower last night he cannot really tell me if he had a loss consciousness he does have a small eschar on the right side of his forehead denies any neck pain. He is also complaining some abdominal pain and says he has not had a bowel movement for the last 3 days finally has back pain. He does admit to drinking heavily this morning had 3-4 beers plus several drinks with hard liquor. Patient admits he drinks daily. Denies chest pain or shortness of breath. MD complaint: fall Onset (ago): hour(s) Fall from: standing Fall witnessed: no Place fall occurred: home Loss of consciousness: Unsure Symptoms prior to fall: none Context: tripped/slipped Location of injury: head Associated symptoms-after fall: Reports abdominal pain; Denies chest pain, confusion, difficulty walking, headache(s), hematuria, lightheadedness, neck pain, numbness, short of breath, vertigo, weakness or other Review of Systems Const: Denies: fever(s), chills, fatigue or malaise ENMT: Denies: throat pain, ear or mastoid pain, nasal discharge or nasal congestion Card: Denies: chest pain or lightheadedness Resp: Denies: dyspnea, productive cough or non-productive cough GI: Reports: abdominal pain : Denies: hematuria Musc: Denies: neck pain Skin/Breast: Denies: rash or pruritus Neuro: Denies: headache(s), difficulty walking, vertigo or confusion PFS ED PFSH: Medical History Abdominal wall hernia Atrial fibrillation CHF (congestive heart failure) EF 15-20% on 03/30 Diabetes type 2, controlled History of non-ST elevation myocardial infarction (NSTEMI) Hypertension Neuropathy Peripheral vascular disease Surgical History History of implantable cardioverter-defibrillator (ICD) placement Family History Mother CAD (coronary artery disease) Social History Smoking and tobacco status: current every day smoker cigarettes [ Other cigarette details: 1.5 pack per day x 40 years, currently down to 3-4 cig/day] Alcohol intake: current Alcohol intake frequency: 3 or more drinks per day Alcohol type: beer Substance/Drug Use: former Date of last use: marijuana in 2021 Household members: children Marital status: Single Number of children: 2 Number of grandchildren: 0 Current occupational status: disabled Special duc needs: No Agree to transfusion: Yes Physical Exam Const: GENERAL APPEARANCE: cooperative ORIENTATION/CONSCIOUSNESS: Yes awake HENMT: COMMON NORMALS: normocephalic, atraumatic and hearing grossly normal bilaterally HEAD & SCALP: normocephalic and atraumatic Resp: COMMON NORMALS: normal respiratory effort, No retractions, No use of accessory muscles and clear to auscultation bilaterally AUSCULTATION: clear to auscultation bilaterally Cardio: COMMON NORMALS: regular rate, regular rhythm and No murmurs present (Cardio) RATE: regular rate RHYTHM: regular rhythm GI: COMMON NORMALS: Soft to palpation and No hepatosplenomegaly present AUSCULTATION: Yes normoactive bowel sounds PALPATION: Yes Soft to palpation, No Tenderness to palpation present (GI), No Guarding due to palpation present (GI) and Yes No hepatosplenomegaly present OTHER: Large umbilical hernia easily reducible Extremity: COMMON NORMALS: normal to inspection, capillary refill normal, no clubbing, cyanosis or edema, no calf tenderness and no pedal edema Skin: COMMON NORMALS: no rashes or lesions noted GENERAL SKIN EXAM: no rashes or lesions noted Course Vital Signs: Vital signs: Vital Signs Temperature 97.6 F 05/27/23 13:41 Pulse Rate 88 05/27/23 15:10 Respiratory Rate 18 05/27/23 15:10 Blood Pressure 107/71 05/27/23 15:10 Pulse Oximetry 97 05/27/23 15:10 Oxygen Delivery Me thod Room Air 05/27/23 13:41 MDM - Fall Medical Decision Making Patient acutely intoxicated. No signs of infection wounds in the foot do not appear to be infected they are chronic. His white count is normal his elevated lactic acid I believe is due to his alcohol intake. 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 Will discharge patient home Carafate for stomach upset. Avoid alcohol. Return if is worsening problems. Suspect his Medical Records I reviewed the patient's medical records. Lab Data I reviewed the patient's lab results. 05/27/23 15:12 05/27/23 15:12 Radiology Impressions Abdomen/Pelvis CT 05/27/23 14:32 IMPRESSION: 1. No acute traumatic intra-abdominal findings. 2. Additional findings as described in the body of the report. Head CT 05/27/23 14:34 IMPRESSION: No acute intracranial abnormality. Chest X-Ray 05/27/23 15:44 IMPRESSION: No acute infiltrate. Laboratory Results WBC 8.59 10^3/uL (3.29-11.43) 05/27/23 15:12 RBC 4.79 10^6/uL (3.85-5.65) 05/27/23 15:12 Hgb 13.10 g/dL (11.27-16.99) 05/27/23 15:12 Hct 41.7 % (37-53) 05/27/23 15:12 MCV 87.1 fl (82-101) 05/27/23 15:12 MCH 27.3 pg (27-33) 05/27/23 15:12 MCHC 31.4 g/dL (30-55) 05/27/23 15:12 RDW 14.8 % (12.1-15.1) 05/27/23 15:12 Plt Count 213 10^3/cmm (157-399) 05/27/23 15:12 MPV 9.8 fL (7.4-10.4) 05/27/23 15:12 Neut % (Auto) 59.4 % 05/27/23 15:12 Lymph % (Auto) 31.0 % 05/27/23 15:12 Dickenson % (Auto) 8.1 % 05/27/23 15:12 Eos % (Auto) 0.8 % 05/27/23 15:12 Baso % (Auto) 0.5 % 05/27/23 15:12 Neut # (Auto) 5.10 10^3/uL (1.8-7.7) 05/27/23 15:12 Lymph # (Auto) 2.7 10^3/uL (0.8-4.8) 05/27/23 15:12 Dickenson # (Auto) 0.7 10^3/uL (0.2-0.9) 05/27/23 15:12 Eos # (Auto) 0.1 10^3/uL (0.0-0.8) 05/27/23 15:12 Baso # (Auto) 0.0 10^3/uL (0.0-0.1) 05/27/23 15:12 Nucleated RBC % (auto) 0 % 05/27/23 15:12 Nucleated RBCs # 0.0 /100WBC 05/27/23 15:12 Sodium 142 mmol/L (136-145) 05/27/23 15:12 Potassium 3.6 mmol/L (3.5-5.1) 05/27/23 15:12 Chloride 109 mmol/L (98-107) H 05/27/23 15:12 Carbon Dioxide 16 mmol/L (22-29) L 05/27/23 15:12 Anion Gap 20.6 (5-19) H 05/27/23 15:12 BUN 9 mg/dL (6-20) 05/27/23 15:12 Creatinine 1.1 mg/dL (0.7-1.2) 05/27/23 15:12 GFR Calculation 69.2 mL/min (90-130) L 05/27/23 15:12 Glucose 101 mg/dL (65-115) 05/27/23 15:12 Calculated Osmolality 293 mOsm/kg (285-295) 05/27/23 15:12 Lactic Acid 3.1 mmol/L (0.5-2.2) H 05/27/23 15:12 Calcium 8.9 mg/dL (8.5-10.5) 05/27/23 15:12 Total Bilirubin 0.3 mg/dL (0.15-1.2) 05/27/23 15:12 AST 23 U/L (0-40) 05/27/23 15:12 ALT 17 U/L (0-41) 05/27/23 15:12 Alkaline Phosphatase 68 U/L (40-130) 05/27/23 15:12 Total Protein 8.3 g/dL (6.6-8.7) 05/27/23 15:12 Albumin 3.7 g/dL (3.5-5.2) 05/27/23 15:12 Globulin 4.6 g/dL (1.3-4.6) 05/27/23 15:12 Lipase 16 U/L (13-60) 05/27/23 15:12 Ethyl Alcohol 177 mg/dL (0-10) H 05/27/23 15:12 Discharge Plan Discharge Patient Disposition: Home Clinical Impression: Fall, Alcohol intoxication Condition: Stable Prescriptions: New Carafate 1 gram tablet 1 g PO Q6H 28 Days Qty: 112 0RF No Action Lipitor 10 mg tablet 10 mg PO DAILY Qty: 30 5RF midodrine 10 mg tablet 10 mg PO TID 30 Days Qty: 90 5RF Rx Instructions: (rx bottle empty dated 11/08/22) metoprolol succinate 100 mg tablet extended release 24 hr 50 mg PO BID Qty: 60 5RF Entresto 49-51 mg tablet 1 tab PO BID Qty: 60 5RF hydrocodone-acetaminophen 5-325 mg tablet 1 tab PO Q8H PRN (Reason: pain) 5 Days Qty: 15 0RF furosemide [Lasix] 40 mg tablet See Rx Instructions .ROUTE .COMPLEX Rx Instructions: 40mg po qam and 80mg po at bedtime metformin 500 mg tablet 500 mg PO BID aspirin 81 mg tablet,delayed release (DR/EC) 81 mg PO DAILY gabapentin 100 mg capsule 200 mg PO TID Eliquis 5 mg tablet 5 mg PO BID potassium chloride 20 mEq tablet extended release 20 meq PO BID albuterol sulfate 90 mcg/actuation Hfa Aerosol Inhaler 2 puff INHALATION 6XD PRN (Reason: Shortness Of Breath Or Wheezing) Symbicort 80-4.5 mcg/actuation Hfa Aerosol Inhaler 1 puff INHALATION BID Discharge Orders: Discharge ED (Routine); Ordered 05/27/23 Ordered By: Carlos Alberto Gómez Referrals: Jourdan Awad MD [Primary Care Provider] - Discharge Diet: Usual diet Discharge Activity: Increase activity as tolerated Patient Instructions: Abuse of Alcohol (ED), Opioid Safety, Pain Management Coding Level of Care Code ED Independent Film 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
--- NOTE | 2023-05-27 14:34 | CTR_ITS ---
PROCEDURE INFORMATION: Exam: CT Head Without Contrast Exam date and time: 05/27/2023 3:30 PM Age: 57 years old Clinical indication: Injury or trauma; Fall; Blunt trauma (contusions or hematomas); Additional info: Closed head injury on anticoagulants TECHNIQUE: Imaging protocol: Computed tomography of the head without contrast. Radiation optimization: All CT scans at this facility use at least one of these dose optimization techniques: automated exposure control; mA and/or kV adjustment per patient size (includes targeted exams where dose is matched to clinical indication); or iterative reconstruction. REPORTING DATA: Count of CT and Cardiac NM exams in prior 12 months: This patient has received [address] and 0 known cardiac nuclear medicine studies in the 12 months prior to the current study. COMPARISON: No relevant prior studies available. RADIATION DOSE METRICS: Total DLP (mGy-cm): 1171.38 FINDINGS: Brain: No hemorrhage. No edema. Moderate diffuse cerebral atrophy and mild sequela of chronic small vessel ischemic disease. No mass effect. Cerebral ventricles: No ventriculomegaly. Paranasal sinuses: Visualized sinuses are unremarkable. No fluid levels. Mastoid air cells: Visualized mastoid air cells are well aerated. Bones/joints: Unremarkable. No acute fracture. Soft tissues: Unremarkable. CT/CT head wo con* [id number] IMPRESSION: No acute intracranial abnormality.
[2023-05-27 15:10] VITALS: BP 107/71; PULSE 88; RESP 18; O2SAT 97
[2023-05-27 15:24] LABS: Basophils % 0.5 %; Eosinophils # 0.1 10^3/uL (0.0-0.8); Eosinophils % 0.8 %; Hematocrit 41.7 % (37-53); Lymphocytes # 2.7 10^3/uL (0.8-4.8); Mean Corpuscular HGB Conc 31.4 g/dL (30-55); Mean Corpuscular Hemoglobin 27.3 pg (27-33); Mean Corpuscular Volume 87.1 fl (82-101); Mean Platelet Volume 9.8 fL (7.4-10.4); Monocytes # 0.7 10^3/uL (0.2-0.9); Monocytes % 8.1 %; Neutrophils % 59.4 %; Nucleated Red Blood Cells % 0 %; Platelet Count 213 10^3/cmm (157-399); Red Blood Count 4.79 10^6/uL (3.85-5.65); Red Cell Distribution Width 14.8 % (12.1-15.1); White Blood Count 8.59 10^3/uL (3.29-11.43)
[2023-05-27 15:38] LABS: Lactic Sepsis W/Reflex 3.1 mmol/L (0.5-2.2)
[2023-05-27 15:43] LABS: Alanine Aminotransferase 17 U/L (0-41); Albumin Level 3.7 g/dL (3.5-5.2); Alcohol Level 177 mg/dL (0-10); Alkaline Phosphatase 68 U/L (40-130); Anion Gap 20.6 (5-19); Aspartate Amino Transferase 23 U/L (0-40); Blood Urea Nitrogen 9 mg/dL (6-20); Calcium 8.9 mg/dL (8.5-10.5); Carbon Dioxide 16 mmol/L (22-29); Chloride 109 mmol/L (98-107); Globulin 4.6 g/dL (1.3-4.6); Glomerular Filtration Rate 69.2 mL/min (90-130); Glucose 101 mg/dL (65-115); Lipase 16 U/L (13-60); Osmolality Calculated 293 mOsm/kg (285-295); Potassium 3.6 mmol/L (3.5-5.1); Sodium 142 mmol/L (136-145); Total Bilirubin 0.3 mg/dL (0.15-1.2); Total Protein 8.3 g/dL (6.6-8.7)
--- NOTE | 2023-05-27 15:44 | XRR_ITS ---
PROCEDURE INFORMATION: Exam: XR Chest Exam date and time: 05/27/2023 4:01 PM Age: 57 years old Clinical indication: Cough and dyspnea; Additional info: Dyspnea/cough TECHNIQUE: Imaging protocol: Radiologic exam of the chest. Views: 1 view. COMPARISON: CR XR chest 1V portable [id number] 03/01/2023 8:56 AM FINDINGS: Limitations: The study is made with less than full inspiration. Tubes, catheters and devices: There is transvenous AICD in place with leads in appropriate position. Lungs: Visualized portions of the lungs are clear. Pleural spaces: Unremarkable. No pleural effusion. No pneumothorax. Heart/Mediastinum: Heart is within normal limits of size. Bones/joints: Unremarkable. XR/XR chest 1V portable [id number] IMPRESSION: No acute infiltrate.
[2023-05-27] MEDS: sodium chloride 0.9% 1,000 ML 999 ML IV (15:56)
[2023-05-27 16:01] LABS: Reflex Lactate Order REFLEX LACTIC ORDERD
--- NOTE | 2023-05-27 17:14 | PC.NURSE ---
pt has d/c orders in and we are waiting for pts aunt to come and give him a ride.
== END 2023-05-27 17:20 | disposition home or self-care (01) ==
PROVIDERS: Emergency Provider Family Medicine; PCP Family Medicine Adult Medicine
DX: F10.129 Alcohol abuse with intoxication, unspecified (principal); Y90.6 Blood alcohol level of 120-199 mg/100 ml; Z79.82 Long term (current) use of aspirin; Z79.84 Long term (current) use of oral hypoglycemic drugs; Z79.01 Long term (current) use of anticoagulants; I11.0 Hypertensive heart disease with heart failure; I50.9 Heart failure, unspecified; E11.9 Type 2 diabetes mellitus without complications; I25.2 Old myocardial infarction; Z95.810 Presence of automatic (implantable) cardiac defibrillator; F17.210 Nicotine dependence, cigarettes, uncomplicated
CPT/HCPCS: 36415; 70450; 71045; 74176; 80053; 80307; 83605; 83690; 85025; 87040; 93005; 99285; J7030

== ENCOUNTER 2023-05-29 16:43 | Emergency (ER) | payer MEDICAID, SELFPAY ==
[2023-05-29 16:56] VITALS: BP 103/67; PULSE 103; RESP 15; TEMP 37.1; O2SAT 97; BMI 27.8
--- NOTE | 2023-05-29 17:57 | ED_ITS ---
HPI - Abdominal Pain General: Chief Complaint: Abdominal Pain Stated Complaint: back pain, abd pain Time Seen by Provider: 05/29/23 16:50 History of Present Illness: 57-year-old male patient fell on Sunday in the bathtub reporting possibly hitting his back against the faucet. Since then patient has had increasing pain and discomfort to the back. Patient was evaluated at that time with CT of the head, chest and abdomen. No acute injuries were noted. Patient appears nontoxic. Patient does appear in mild to moderate pain. Patient reports pain in the right lower back radiating to his abdomen. Patient moves extremities well. Associated Symptoms: Denies fever(s) and vomiting Review of Systems General: Reports: 10 or more systems reviewed and unremarkable except in HPI and below Const: Denies: fever(s) Card: Denies: chest pain Resp: Denies: dyspnea GI: Reports: abdominal pain; Denies: vomiting : Denies: difficulty urinating Musc: Reports: back pain [facility] PFSH: Medical History (Updated 05/29/23 @ 18:40 by LAURE Woodruff) Abdominal wall hernia Alcoholism with alcohol dependence Atrial fibrillation Back contusion CHF (congestive heart failure) EF 15-20% on 03/30 Diabetes type 2, controlled History of non-ST elevation myocardial infarction (NSTEMI) Hypertension Neuropathy Peripheral vascular disease Surgical History History of implantable cardioverter-defibrillator (ICD) placement Family History Mother CAD (coronary artery disease) Social History Smoking and tobacco status: current every day smoker cigarettes [ Other cigarette details: 1.5 pack per day x 40 years, currently down to 3-4 cig/day] Alcohol intake: current Alcohol intake frequency: 3 or more drinks per day Alcohol type: beer Substance/Drug Use: former Date of last use: marijuana in 2021 Household members: children Marital status: Single Number of children: 2 Number of grandchildren: 0 Current occupational status: disabled Special duc needs: No Agree to transfusion: Yes Physical Exam Const: COMMON NORMALS: alert HENMT: COMMON NORMALS: normocephalic and atraumatic HEAD & SCALP: normocephalic and atraumatic Neck/C-Spine: COMMON NORMALS: full ROM Chest: COMMONS NORMALS: normal inspection of the chest and normal palpation of entire chest wall Resp: COMMON NORMALS: normal respiratory effort and clear to auscultation bilaterally AUSCULTATION: clear to auscultation bilaterally Cardio: COMMON NORMALS: regular rate and regular rhythm RATE: regular rate RHYTHM: regular rhythm GI: COMMON NORMALS: Soft to palpation PALPATION: Yes Soft to palpation and Yes Tenderness to palpation present (GI) Details: other (Right lateral abdomen) OTHER: Large reducible umbilical hernia : COMMON NORMALS: Yes no CVA tenderness BLADDER/KIDNEY EXAM: Yes no CVA tenderness Back/Pelvis: COMMON NORMALS: no CVA tenderness THORACIC SPINE/UPPER BACK: No thoracic spinal tenderness and No paraspinal muscle tenderness LUMBAR SPINE/LOWER BACK: No lumbar spinal tenderness and Yes paraspinal muscle tenderness Lumbar paraspinal muscle tenderness: right Extremity: NARRATIVE EXTREMITY EXAM: Bilateral lower extremity edema Neuro: SENSORIUM/ORIENTATION: Yes alert Skin: COMMON NORMALS: turgor normal GENERAL SKIN EXAM: turgor normal Course Vital Signs: Vital signs: Vital Signs Temperature 98.7 F 05/29/23 16:56 Pulse Rate 84 05/29/23 18:30 Respiratory Rate 18 05/29/23 18:30 Blood Pressure 141/77 05/29/23 18:30 Pulse Oximetry 95 05/29/23 18:30 Oxygen Delivery Me thod Room Air 05/29/23 16:56 MDM - Abdominal Pain Medical Decision Making Patient comes in for reevaluation of back pain secondary to a fall from Sunday. Patient reports slipping in the shower and landing against the faucet and hurting his back and right abdomen. Patient appears nontoxic. Patient appears in mild to moderate pain. Vital signs are normal. Differential diagnosis includes but not limited to fracture, contusion, organ injury. Review of the record had full body scan CT of the head and chest and abdomen which showed no significant abnormalities at that time. Repeat labs today were normal. I went ahead and x-rayed his lumbar spine which showed no acute abnorm ality but some degenerative spinal changes. Reassured patient that there was no sign of severe injury and his pain should improve with time. I did write for patient to have 10 tablets of hydrocodone to help with better control of his pain than his usual medications at home. Instructed patient not to be drinking alcohol with the hydrocodone he reported understanding. Patient will follow-up with primary care for further instructions. Return to ED for new concerns or worsening symptoms. Lab Data 05/29/23 17:45 05/29/23 17:45 Labs/Radiology: Radiology Impressions Lumbar Spine X-Ray 05/29/23 18:02 IMPRESSION: 1. Negative for fracture or dislocation. 2. Multilevel mwgo-ko-bymfzhuy largely upper lumbar spine disc space narrowing and productive degenerative endplate changes. Laboratory Results WBC 7.54 10^3/uL (3.29-11.43) 05/29/23 17:45 RBC 4.67 10^6/uL (3.85-5.65) 05/29/23 17:45 Hgb 12.80 g/dL (11.27-16.99) 05/29/23 17:45 Hct 39.1 % (37-53) 05/29/23 17:45 MCV 83.7 fl (82-101) 05/29/23 17:45 MCH 27.4 pg (27-33) 05/29/23 17:45 MCHC 32.7 g/dL (30-55) 05/29/23 17:45 RDW 14.2 % (12.1-15.1) 05/29/23 17:45 Plt Count 215 10^3/cmm (157-399) 05/29/23 17:45 MPV 10.2 fL (7.4-10.4) 05/29/23 17:45 Neut % (Auto) 63.7 % 05/29/23 17:45 Lymph % (Auto) 26.8 % 05/29/23 17:45 [place] % (Auto) 7.0 % 05/29/23 17:45 Eos % (Auto) 1.7 % 05/29/23 17:45 Baso % (Auto) 0.5 % 05/29/23 17:45 Neut # (Auto) 4.80 10^3/uL (1.8-7.7) 05/29/23 17:45 Lymph # (Auto) 2.0 10^3/uL (0.8-4.8) 05/29/23 17:45 [place] # (Auto) 0.5 10^3/uL (0.2-0.9) 05/29/23 17:45 Eos # (Auto) 0.1 10^3/uL (0.0-0.8) 05/29/23 17:45 Baso # (Auto) 0.0 10^3/uL (0.0-0.1) 05/29/23 17:45 Nucleated RBC % (auto) 0 % 05/29/23 17:45 Nucleated RBCs # 0.0 /100WBC 05/29/23 17:45 Sodium 134 mmol/L (136-145) L 05/29/23 17:45 Potassium 3.8 mmol/L (3.5-5.1) 05/29/23 17:45 Chloride 100 mmol/L (98-107) 05/29/23 17:45 Carbon Dioxide 24 mmol/L (22-29) 05/29/23 17:45 Anion Gap 13.8 (5-19) 05/29/23 17:45 BUN 11 mg/dL (6-20) 05/29/23 17:45 Creatinine 0.7 mg/dL (0.7-1.2) 05/29/23 17:45 GFR Calculation 116.7 mL/min (90-130) 05/29/23 17:45 Glucose 153 mg/dL (65-115) H 05/29/23 17:45 Calculated Osmolality 280 mOsm/kg (285-295) L 05/29/23 17:45 Calcium 9.1 mg/dL (8.5-10.5) 05/29/23 17:45 Total Bilirubin 0.5 mg/dL (0.15-1.2) 05/29/23 17:45 AST 19 U/L (0-40) 05/29/23 17:45 ALT 14 U/L (0-41) 05/29/23 17:45 Alkaline Phosphatase 66 U/L (40-130) 05/29/23 17:45 Total Protein 8.0 g/dL (6.6-8.7) 05/29/23 17:45 Albumin 3.8 g/dL (3.5-5.2) 05/29/23 17:45 Globulin 4.2 g/dL (1.3-4.6) 05/29/23 17:45 Lipase 16 U/L (13-60) 05/29/23 17:45 Ethyl Alcohol < 10 mg/dL (0-10) 05/29/23 17:45 Discharge Plan Discharge Patient Disposition: Home Clinical Impression: Back pain due to injury Fall Qualifiers: Encounter type: subsequent encounter Qualified Code(s): W19.XXXD - Unspecified fall, subsequent encounter Condition: Stable Prescriptions: New hydrocodone-acetaminophen 5-325 mg tablet 1 tab PO Q8H PRN (Reason: pain (scale score 7-10)) Qty: 10 0RF No Action baclofen 10 mg tablet 10 mg PO BID Qty: 14 0RF (DME) shower chair See Rx Instructions .Route .MEDSUPPLY Qty: 1 0RF Rx Instructions: As directed Lipitor 10 mg tablet 10 mg PO DAILY Qty: 30 5RF midodrine 10 mg tablet 10 mg PO TID 30 Days Qty: 90 5RF Rx Instructions: (rx bottle empty dated 11/08/22) metoprolol succinate 100 mg tablet extended release 24 hr 50 mg PO BID Qty: 60 5RF Entresto 49-51 mg tablet 1 tab PO BID Qty: 60 5RF hydrocodone-acetaminophen 5-325 mg tablet 1 tab PO Q8H PRN (Reason: pain) 5 Days Qty: 15 0RF furosemide [Lasix] 40 mg tablet See Rx Instructions .ROUTE .COMPLEX Rx Instructions: 40mg po qam and 80mg po at bedtime metformin 500 mg tablet 500 mg PO BID aspirin 81 mg tablet,delayed release (DR/EC) 81 mg PO DAILY gabapentin 100 mg capsule 200 mg PO TID Eliquis 5 mg tablet 5 mg PO BID potassium chloride 20 mEq tablet extended release 20 meq PO BID albuterol sulfate 90 mcg/actuation Hfa Aerosol Inhaler 2 puff INHALATION 6XD PRN (Reason: Shortness Of Breath Or Wheezing) Symbicort 80-4.5 mcg/actuation Hfa Aerosol Inhaler 1 puff INHALATION BID Carafate 1 gram tablet 1 g PO Q6H 28 Days Qty: 112 0RF Discharge Orders: Discharge ED (Routine); Ordered 05/29/23 Ordered By: Bruce Lopez Referrals: Jourdan Awad MD [Primary Care Provider] - Discharge Diet: Usual diet Discharge Activity: Increase activity as tolerated Patient Instructions: Musculoskeletal Pain (ED), Opioid Safety, Pain Management Activity Restrictions/Additional Instructions: Continue with routine care. Use acetaminophen as needed for control of pain. Use hydrocodone for severe pain. Follow-up with primary care for further instructions. Return to ED for new concerns. Coding Level of Care Code ED Sys Dir for Cecily Wood
[2023-05-29 17:58] LABS: Basophils % 0.5 %; Eosinophils # 0.1 10^3/uL (0.0-0.8); Eosinophils % 1.7 %; Hematocrit 39.1 % (37-53); Lymphocytes % 26.8 %; Mean Corpuscular HGB Conc 32.7 g/dL (30-55); Mean Corpuscular Hemoglobin 27.4 pg (27-33); Mean Corpuscular Volume 83.7 fl (82-101); Mean Platelet Volume 10.2 fL (7.4-10.4); Monocytes # 0.5 10^3/uL (0.2-0.9); Neutrophils % 63.7 %; Nucleated Red Blood Cells % 0 %; Platelet Count 215 10^3/cmm (157-399); Red Blood Count 4.67 10^6/uL (3.85-5.65); Red Cell Distribution Width 14.2 % (12.1-15.1); White Blood Count 7.54 10^3/uL (3.29-11.43)
--- NOTE | 2023-05-29 18:02 | XRR_ITS ---
PROCEDURE INFORMATION: Exam: XR Lumbosacral Spine Exam date and time: 05/29/2023 6:06 PM Age: 57 years old Clinical indication: Low back pain; Additional info: Back pain, fall injury TECHNIQUE: Imaging protocol: Radiologic exam of the lumbosacral spine. Views: 2 or 3 views. COMPARISON: CT abdomen pelvis wo con [id number] 05/27/2023 3:33 PM FINDINGS: Bones/joints: Multilevel fyzt-bz-leccbxhv largely upper lumbar spine disc space narrowing and productive degenerative endplate changes. Soft tissues: Unremarkable. XR/XR lumbar spine 2-3V* [id number] IMPRESSION: 1. Negative for fracture or dislocation. 2. Multilevel nwnu-fn-utsfxuxy largely upper lumbar spine disc space narrowing and productive degenerative endplate changes.
[2023-05-29 18:16] LABS: Alanine Aminotransferase 14 U/L (0-41); Albumin Level 3.8 g/dL (3.5-5.2); Alcohol Level < 10 mg/dL (0-10); Alkaline Phosphatase 66 U/L (40-130); Aspartate Amino Transferase 19 U/L (0-40); Blood Urea Nitrogen 11 mg/dL (6-20); Calcium 9.1 mg/dL (8.5-10.5); Carbon Dioxide 24 mmol/L (22-29); Chloride 100 mmol/L (98-107); Globulin 4.2 g/dL (1.3-4.6); Glomerular Filtration Rate 116.7 mL/min (90-130); Glucose 153 mg/dL (65-115); Lipase 16 U/L (13-60); Osmolality Calculated 280 mOsm/kg (285-295); Sodium 134 mmol/L (136-145); Total Bilirubin 0.5 mg/dL (0.15-1.2)
[2023-05-29 18:17] LABS: Anion Gap 13.8 (5-19); Potassium 3.8 mmol/L (3.5-5.1)
[2023-05-29 18:30] VITALS: BP 141/77; PULSE 84; RESP 18; O2SAT 95
[2023-05-29] MEDS: HYDROcodone-acetaminophen 7.5-325 mg Tablet 1 TAB PO (18:45)
[2023-05-29 19:17] VITALS: BP 120/74; PULSE 82; RESP 18; O2SAT 94
== END 2023-05-29 19:24 | disposition home or self-care (01) ==
PROVIDERS: Emergency Medicine; Emergency Provider Nurse Practitioner Family; PCP Family Medicine Adult Medicine
DX: S39.92XA Unspecified injury of lower back, initial encounter (principal); R60.0 Localized edema; K42.9 Umbilical hernia without obstruction or gangrene; Z79.82 Long term (current) use of aspirin; Z79.84 Long term (current) use of oral hypoglycemic drugs; Z79.01 Long term (current) use of anticoagulants; I11.0 Hypertensive heart disease with heart failure; I50.9 Heart failure, unspecified; E11.9 Type 2 diabetes mellitus without complications; I25.2 Old myocardial infarction; Z95.810 Presence of automatic (implantable) cardiac defibrillator; F17.210 Nicotine dependence, cigarettes, uncomplicated; W18.2XXA Fall in (into) shower or empty bathtub, initial encounter
CPT/HCPCS: 36415; 72100; 80053; 80307; 83690; 85025; 99284

== ENCOUNTER → 2023-06-01 13:40 | Outpatient (BNVA) | payer MEDICAID, SELFPAY | PROVIDERS: PCP Family Medicine Adult Medicine; Visit Provider Thoracic Surgery (Cardiothoracic Vascular Surgery) | DX: I87.2 Venous insufficiency (chronic) (peripheral) (principal); E11.52 Type 2 diabetes mellitus with diabetic peripheral angiopathy with gangrene; L97.812 Non-pressure chronic ulcer of other part of right lower leg with fat layer exposed; L97.822 Non-pressure chronic ulcer of other part of left lower leg with fat layer exposed | CPT/HCPCS: 11042; 11045; 97597; A6253 ==

== ENCOUNTER → 2023-06-05 10:26 | Outpatient (BNVA) | payer MEDICAID, SELFPAY | PROVIDERS: PCP Family Medicine Adult Medicine; Referring Provider Family Medicine Adult Medicine; Visit Provider Surgery | DX: K42.9 Umbilical hernia without obstruction or gangrene (principal) | CPT/HCPCS: 99203; 99214 ==

== ENCOUNTER → 2023-06-08 13:38 | Outpatient (BNVA) | payer MEDICAID, SELFPAY | PROVIDERS: PCP Family Medicine Adult Medicine; Visit Provider Nurse Practitioner Family | DX: E11.52 Type 2 diabetes mellitus with diabetic peripheral angiopathy with gangrene (principal); I87.2 Venous insufficiency (chronic) (peripheral); L97.812 Non-pressure chronic ulcer of other part of right lower leg with fat layer exposed; L97.822 Non-pressure chronic ulcer of other part of left lower leg with fat layer exposed | CPT/HCPCS: 11042; 11045; 97597; A6197; A6253 ==

== ENCOUNTER → 2023-06-15 09:04 | Outpatient (BNVA) | payer MEDICAID, SELFPAY | PROVIDERS: PCP Family Medicine Adult Medicine; Visit Provider Nurse Practitioner Family | DX: E11.52 Type 2 diabetes mellitus with diabetic peripheral angiopathy with gangrene (principal); I87.2 Venous insufficiency (chronic) (peripheral); L97.812 Non-pressure chronic ulcer of other part of right lower leg with fat layer exposed; L97.822 Non-pressure chronic ulcer of other part of left lower leg with fat layer exposed | CPT/HCPCS: 11042; 11045; A6197; A6253 ==

== ENCOUNTER → 2023-06-22 13:42 | Outpatient (BNVA) | payer MEDICAID, SELFPAY | PROVIDERS: PCP Family Medicine Adult Medicine; Visit Provider Thoracic Surgery (Cardiothoracic Vascular Surgery) | DX: E11.52 Type 2 diabetes mellitus with diabetic peripheral angiopathy with gangrene (principal); I87.2 Venous insufficiency (chronic) (peripheral); L97.812 Non-pressure chronic ulcer of other part of right lower leg with fat layer exposed; L97.822 Non-pressure chronic ulcer of other part of left lower leg with fat layer exposed | CPT/HCPCS: 11042; 11045; 97597; A6197; A6251; A6253 ==

== ENCOUNTER → 2023-06-29 13:47 | Outpatient (BNVA) | payer MEDICAID, SELFPAY | PROVIDERS: PCP Family Medicine Adult Medicine; Visit Provider Thoracic Surgery (Cardiothoracic Vascular Surgery) | DX: E11.52 Type 2 diabetes mellitus with diabetic peripheral angiopathy with gangrene (principal); I87.2 Venous insufficiency (chronic) (peripheral); L97.822 Non-pressure chronic ulcer of other part of left lower leg with fat layer exposed; L97.811 Non-pressure chronic ulcer of other part of right lower leg limited to breakdown of skin | CPT/HCPCS: 97597; 97598; A6197; A6252 ==

== ENCOUNTER 2023-07-05 10:25 | Day surgery (SDC) | payer MEDICAID, SELFPAY ==
[2023-07-04 08:53] VITALS: BMI 27.6
[2023-07-05] VITALS (10 sets, daily range): BP systolic 107–160; BP diastolic 69–91; PULSE 67–77; RESP 16–25; TEMP 36.2–36.6; O2SAT 92–97
--- NOTE | 2023-07-05 12:11 | P.ANESASSM_ITS ---
Pre-Anesthetic Assessment Height/Weight: Height 1.7 m Weight 79.832 kg O2 Del Method Room Air 07/05/23 11:41 Operation Date: 07/05/23 12:00 Proposed Procedures p lap umbilical hernia with mesh 88310,K42.9(Not Applicable) - Ye Obrien DO Familial anesthetic complications: none Was Beta Herman taken within 24 hours: Yes Was Clonidine taken within 24 hours: N/A Last intake: Intake Last Liquid Date 07/04/23 Last Liquid Time 22:00 Last Solid Date 07/04/23 Last Solid Time 22:00 Social Alcohol (daily 6 pack) and Tobacco Exam alert, oriented x 3 and regular rate & rhythm rhonchi Airway Submandibular: within normal limits Cervical ROM: within normal limits Mallampati: Class II Dentition: false Pulmonary Chronic Obstructive Pulmonary Disease CV/HEM Atrial Fibrillation, Arrythmia, Congestive Heart Failure, Hypertension and Peripheral Vascular Disease Pacemaker ?CONCLUSIONS ?Left ventricle is dilated.? LV systolic function is severely ?reduced with EF of 15-20%.? ?RV is moderate to severely hypokinetic. ?Dilated ?Mild mitral regurgitation. ?Mild tricuspid regurgitation ?moderate pulmonary hypertension. ?IVC is dilated ?No comparison studies are available ?Ismael Sue MD ?(Electronically Signed) ?Final Date:? ? ? 01 March 2023 Metabolic Diabetes Mellitus and Hyperlipidemia Anesthetic Plan ASA status: 3 Anesthesia: General Medications/Allergies Home Medications Medication Instructions Recorded Confirmed Last Taken Type atorvastatin 10 mg tablet (Lipitor) 10 mg PO DAILY #30 tabs 04/18/23 07/04/23 07/03/23 Rx metoprolol succinate 100 mg 50 mg PO BID #60 tabs 04/18/23 07/04/23 07/03/23 Rx tablet,extended release 24 hr midodrine 10 mg tablet 10 mg PO TID low pressure/heart 04/18/23 07/04/23 07/03/23 Rx failure 30 days #90 tabs sacubitril 49 mg-valsartan 51 mg 1 tab PO BID blood pressure #60 04/18/23 07/04/23 07/03/23 Rx tablet (Entresto) tabs albuterol sulfate 90 mcg/actuation 2 puff inhalation 6XD PRN 05/27/23 07/05/23 07/04/23 History aerosol inhaler Shortness Of Breath Or Wheezing apixaban 5 mg tablet (Eliquis) 5 mg PO BID 05/27/23 07/04/23 07/03/23 History aspirin 81 mg tablet,delayed 81 mg PO DAILY 05/27/23 06/05/23 07/03/23 History release budesonide-formoterol HFA 80 1 puff inhalation BID 05/27/23 07/04/23 Unknown History mcg-4.5 mcg/actuation aerosol inhaler (Symbicort) furosemide 40 mg tablet (Lasix) See Rx Instructions .Route .COMPLEX 05/27/23 07/04/23 07/03/23 History gabapentin 100 mg capsule 200 mg PO TID 05/27/23 07/04/23 07/03/23 History metformin 500 mg tablet 500 mg PO BID 05/27/23 07/04/23 07/03/23 History potassium chloride 20 mEq 20 meq PO BID 05/27/23 07/04/23 07/03/23 History tablet,extended release baclofen 10 mg tablet 10 mg PO BID fall/back pain #14 05/29/23 07/04/23 07/03/23 Rx tabs shower chair #1 ea 05/29/23 06/05/23 Unknown Rx Allergies Allergy/AdvReac Type Severity Reaction Status Date / Time No Known Allergies Allergy Verified 07/04/23 08:49 [facility] Anesthesia Medical History Abdominal wall hernia Alcoholism with alcohol dependence Atrial fibrillation Back contusion CHF (congestive heart failure) EF 15-20% on 03/30 Diabetes type 2, controlled History of non-ST elevation myocardial infarction (NSTEMI) Hypertension Neuropathy Peripheral vascular disease Surgical History History of implantable cardioverter-defibrillator (ICD) placement Family History Mother CAD (coronary artery disease) Social History Smoking and tobacco/nicotine status: current every day tobacco/nicotine user cigarettes [ Other cigarette details: 1.5 pack per day x 40 years, currently down to 3-4 cig/day] Alcohol intake: current Alcohol intake frequency: 3 or more drinks per day Alcohol type: beer Substance/Drug Use: former Date of last use: marijuana in 2021 Household members: children Marital status: Single Number of children: 2 Number of grandchildren: 0 Current occupational status: disabled Special duc needs: No Agree to transfusion: Yes Data Anesthesia Cardiac Studies: Echocardiogram 02/28/23 Sestamibi Stress Test (Cardiology) 03/05
--- NOTE | 2023-07-05 12:15 | W.PM.OPSUD ---
Surgery/Procedure H&P Update DATE OF PROCEDURE: July 05, 2023 DATE H&P PERFORMED: 06/05/23 H&P UPDATE INFORMATION: I have reviewed H&P completed within last 30 days, I have examined patient prior to procedure and No changes to prior documentation PLANNED PROCEDURE: Operation Date: 07/05/23 12:00 Proposed Procedures p lap umbilical hernia with mesh 64429,K42.9(Not Applicable) - Ye Obrien, DO
[2023-07-05] MEDS: sodium chloride 0.9% 1,000 ML 30 ML IV (12:18)
[2023-07-05 13:05] LABS: Blood Urea Nitrogen 7 mg/dL (6-20); Calcium 9.1 mg/dL (8.5-10.5); Carbon Dioxide 25 mmol/L (22-29); Chloride 102 mmol/L (98-107); Glomerular Filtration Rate 139.4 mL/min (90-130); Glucose 121 mg/dL (65-115); Osmolality Calculated 283 mOsm/kg (285-295); Sodium 137 mmol/L (136-145)
[2023-07-05 13:09] LABS: Anion Gap 14.5 (5-19); Potassium 4.5 mmol/L (3.5-5.1)
[2023-07-05] MEDS: ceFAZolin 2,000 MG in sodium chloride 0.9% (plus) 50 ML 100 MG IV (13:16)
[2023-07-05] MEDS: lidocaine-epi 2% 20 mL INJ INJECTION (13:38)
--- NOTE | 2023-07-05 14:02 | PM.OP ---
Operative Report Date of procedure: July 05, 2023 Pre-op diagnosis: Umbilical hernia Post-op diagnosis: same Procedure done: Laparoscopic repair of umbilical hernia with mesh Implants: 6 inch round Ventralight mesh Specimens removed/disposition: Hernia sac-discarded Surgeon: Ye Obrien DO Anesthesia: General Estimated blood loss (mL): 5 Complications: None apparent Brief History: This very pleasant 57-year-old gentleman who presented my office with a large reducible umbilical hernia. He desired repair. The risk and benefits were explained and documented. Procedure: Patient was wheeled into the operative room and placed on the OR table in a supine position. Abdomen was inspected prepped and draped in usual sterile fashion. Time-out was performed and all present were in agreement. A 15 blade scalp was used to make a 5 millimeter incision left upper quadrant. A Veress needle was placed into the incision and intra-abdominal insufflation was brought to 15 millimeters of mercury. A 12 millimeter trocar was placed into the left lower quadrant. The energy device was then used to cut out the hernia sac. The hernia defect measured 3.5 cm in diameter. A 6 inch ventral light mesh was placed into the abdomen and brought up through the umbilicus using an the Brayan-Abiodun. The mesh was then tacked in place in a double crown fashion. The skeleton of the mesh was removed via the left lower quadrant. The hernia sac was then removed from the abdomen via the left lower quadrant. The left lower quadrant port site was closed with an 0 Vicryl suture in a Brayan-Abiodun in a [id number]-[id number] fashion. Incisions were closed with 4 O Vicryl in a subcuticular interrupted fashion. Skin glue was applied. A dressing that included cotton balls and a Tegaderm was placed over the umbilicus. Patient tolerated the procedure well.
--- NOTE | 2023-07-05 14:26 | ANE.PACU2 ---
Inpatient post-anesthesia follow up: Airway intact: Yes Vital signs: Temperature 97.9 F Pulse Rate 75 Respiratory Rate 22 Blood Pressure 132/74 Pulse Oximetry 93 Oxygen Delivery Me thod Room Air Oxygen Flow Rate Fraction of Inspir ed Oxygen Hydration adequate: Yes Nausea and vomiting: No Pain level: 3 Mental status: Baseline
[2023-07-05] MEDS: fentaNYL 50 mcg/mL INJ 2mL IVP (15:00)
[2023-07-05] MEDS: HYDROcodone-acetaminophen 10-325 mg Tablet 1 TAB PO (15:47)
--- NOTE | 2023-07-05 16:49 | SUR.PHASEII ---
16:40 ABDOMEN SURGICAL DRESSING DRY,CLEAR AND INTACT.
[2023-07-06 05:32] LABS: Glucose Point of Care 121 mg/dL (70-110)
[2023-07-06 05:32] LABS: Glucose Point of Care 120 mg/dL (70-110)
--- NOTE | 2023-07-27 07:46 | PM.PN ---
Subjective Subjective: 07/05/23 1318 2mg of versed given preoperatively by SALTY Berrios Vitals/I&O/Wt Last Vital Signs Temp 97.9 F 07/05/23 16:35 Pulse 68 07/05/23 16:35 Resp 16 07/05/23 16:35 BP 157/87 07/05/23 16:35 Pulse Ox 97 07/05/23 16:35 O2 Del Method Room Air 07/05/23 16:35 Data 07/05/23 12:05 Attestations Medical Necessity Statement*: n/a Coding Level of Care Code Acute Code for Chg Fwd Diagnoses
== END 2023-07-05 16:45 | disposition home or self-care (01) ==
PROVIDERS: Anesthesiology; PCP Family Medicine Adult Medicine; Visit Provider Surgery
PROC: 0WQF4ZZ Repair Abdominal Wall, Percutaneous Endoscopic Approach (ICD-10-PCS; CPT 49593; principal; 2023-07-05 12:00)
DX: K42.9 Umbilical hernia without obstruction or gangrene (principal); J44.9 Chronic obstructive pulmonary disease, unspecified; I48.91 Unspecified atrial fibrillation; I11.0 Hypertensive heart disease with heart failure; I50.9 Heart failure, unspecified; Z95.0 Presence of cardiac pacemaker; E78.5 Hyperlipidemia, unspecified; I25.2 Old myocardial infarction; E11.40 Type 2 diabetes mellitus with diabetic neuropathy, unspecified; F17.210 Nicotine dependence, cigarettes, uncomplicated
CPT/HCPCS: 49593; 36415; 36416; 80048; 82962; J0690; J1100; J2250; J2405; J2704; J3010; J3490; J7030

== ENCOUNTER → 2023-07-13 13:01 | Outpatient (BNVA) | payer MEDICAID, SELFPAY | PROVIDERS: PCP Family Medicine Adult Medicine; Visit Provider Thoracic Surgery (Cardiothoracic Vascular Surgery) | DX: I87.2 Venous insufficiency (chronic) (peripheral) (principal); E11.52 Type 2 diabetes mellitus with diabetic peripheral angiopathy with gangrene; E11.622 Type 2 diabetes mellitus with other skin ulcer; L97.822 Non-pressure chronic ulcer of other part of left lower leg with fat layer exposed; L97.811 Non-pressure chronic ulcer of other part of right lower leg limited to breakdown of skin | CPT/HCPCS: 11042; 11045; 97597; A6210; A6253 ==

== ENCOUNTER → 2023-07-18 13:49 | Outpatient (BNVA) | payer MEDICAID, SELFPAY | PROVIDERS: PCP Family Medicine Adult Medicine; Visit Provider Surgery | DX: Z98.890 Other specified postprocedural states (principal); Z87.19 Personal history of other diseases of the digestive system | CPT/HCPCS: 99024 ==

== ENCOUNTER → 2023-07-20 13:43 | Outpatient (BNVA) | payer MEDICAID, SELFPAY | PROVIDERS: PCP Family Medicine Adult Medicine; Visit Provider Nurse Practitioner Family | DX: E11.52 Type 2 diabetes mellitus with diabetic peripheral angiopathy with gangrene (principal); E11.622 Type 2 diabetes mellitus with other skin ulcer; I87.2 Venous insufficiency (chronic) (peripheral); L97.811 Non-pressure chronic ulcer of other part of right lower leg limited to breakdown of skin; L97.821 Non-pressure chronic ulcer of other part of left lower leg limited to breakdown of skin; S90.822A Blister (nonthermal), left foot, initial encounter; X58.XXXA Exposure to other specified factors, initial encounter | CPT/HCPCS: 11042; 11045 ==

== ENCOUNTER → 2023-07-27 13:07 | Outpatient (BNVA) | payer MEDICAID, SELFPAY | PROVIDERS: PCP Family Medicine Adult Medicine; Visit Provider Thoracic Surgery (Cardiothoracic Vascular Surgery) | DX: E11.52 Type 2 diabetes mellitus with diabetic peripheral angiopathy with gangrene (principal); E11.622 Type 2 diabetes mellitus with other skin ulcer; I87.2 Venous insufficiency (chronic) (peripheral); L97.812 Non-pressure chronic ulcer of other part of right lower leg with fat layer exposed; L97.822 Non-pressure chronic ulcer of other part of left lower leg with fat layer exposed; L89.892 Pressure ulcer of other site, stage 2 | CPT/HCPCS: 11042; 11045; 97597; A6252 ==

== ENCOUNTER → 2023-07-31 15:23 | Outpatient (BNVA) | payer MEDICAID, SELFPAY | PROVIDERS: PCP Family Medicine Adult Medicine; Visit Provider Nurse Practitioner Family | DX: E11.52 Type 2 diabetes mellitus with diabetic peripheral angiopathy with gangrene (principal); E11.622 Type 2 diabetes mellitus with other skin ulcer; I87.2 Venous insufficiency (chronic) (peripheral); L97.822 Non-pressure chronic ulcer of other part of left lower leg with fat layer exposed; L97.811 Non-pressure chronic ulcer of other part of right lower leg limited to breakdown of skin; L89.892 Pressure ulcer of other site, stage 2 | CPT/HCPCS: 97597; 97598; A6251; A6252 ==

== ENCOUNTER → 2023-08-03 12:57 | Outpatient (BNVA) | payer MEDICAID, SELFPAY | PROVIDERS: PCP Family Medicine Adult Medicine; Visit Provider Thoracic Surgery (Cardiothoracic Vascular Surgery) | DX: E11.52 Type 2 diabetes mellitus with diabetic peripheral angiopathy with gangrene (principal); E11.622 Type 2 diabetes mellitus with other skin ulcer; I87.2 Venous insufficiency (chronic) (peripheral); L97.822 Non-pressure chronic ulcer of other part of left lower leg with fat layer exposed; L97.811 Non-pressure chronic ulcer of other part of right lower leg limited to breakdown of skin; Z09 Encounter for follow-up examination after completed treatment for conditions other than malignant neoplasm | CPT/HCPCS: 11042; 11045; 97597; A6251; A6252 ==

== ENCOUNTER → 2023-08-06 09:38 | Outpatient (BNVA) | payer MEDICAID, SELFPAY | PROVIDERS: PCP Family Medicine Adult Medicine; Visit Provider Thoracic Surgery (Cardiothoracic Vascular Surgery) | DX: E11.52 Type 2 diabetes mellitus with diabetic peripheral angiopathy with gangrene (principal); E11.622 Type 2 diabetes mellitus with other skin ulcer; I87.2 Venous insufficiency (chronic) (peripheral); L97.822 Non-pressure chronic ulcer of other part of left lower leg with fat layer exposed; L97.811 Non-pressure chronic ulcer of other part of right lower leg limited to breakdown of skin | CPT/HCPCS: 11042; 11045; 97597; A6251; A6252 ==

== ENCOUNTER → 2023-08-10 13:08 | Outpatient (BNVA) | payer MEDICAID, SELFPAY | PROVIDERS: PCP Family Medicine Adult Medicine; Visit Provider Thoracic Surgery (Cardiothoracic Vascular Surgery) | DX: E11.52 Type 2 diabetes mellitus with diabetic peripheral angiopathy with gangrene (principal); E11.622 Type 2 diabetes mellitus with other skin ulcer; I87.2 Venous insufficiency (chronic) (peripheral); L97.822 Non-pressure chronic ulcer of other part of left lower leg with fat layer exposed; L97.811 Non-pressure chronic ulcer of other part of right lower leg limited to breakdown of skin | CPT/HCPCS: 11042; 11045; 97597; A6252 ==

== ENCOUNTER → 2023-08-13 13:15 | Outpatient (BNVA) | payer MEDICAID, SELFPAY | PROVIDERS: PCP Family Medicine Adult Medicine; Visit Provider Thoracic Surgery (Cardiothoracic Vascular Surgery) | DX: E11.52 Type 2 diabetes mellitus with diabetic peripheral angiopathy with gangrene (principal); E11.622 Type 2 diabetes mellitus with other skin ulcer; L97.821 Non-pressure chronic ulcer of other part of left lower leg limited to breakdown of skin; Z09 Encounter for follow-up examination after completed treatment for conditions other than malignant neoplasm | CPT/HCPCS: 97597; 97598; A6251 ==

== ENCOUNTER → 2023-08-20 13:42 | Outpatient (BNVA) | payer MEDICAID, SELFPAY | PROVIDERS: PCP Family Medicine Adult Medicine; Visit Provider Nurse Practitioner Family | DX: E11.52 Type 2 diabetes mellitus with diabetic peripheral angiopathy with gangrene (principal); E11.622 Type 2 diabetes mellitus with other skin ulcer; L97.821 Non-pressure chronic ulcer of other part of left lower leg limited to breakdown of skin | CPT/HCPCS: 97597; 97598; A6251; A6252 ==

== ENCOUNTER → 2023-08-31 09:43 | Outpatient (BNVA) | payer MEDICAID, SELFPAY | PROVIDERS: PCP Family Medicine Adult Medicine; Visit Provider Thoracic Surgery (Cardiothoracic Vascular Surgery) | DX: E11.52 Type 2 diabetes mellitus with diabetic peripheral angiopathy with gangrene (principal); E11.622 Type 2 diabetes mellitus with other skin ulcer; I87.2 Venous insufficiency (chronic) (peripheral); L97.822 Non-pressure chronic ulcer of other part of left lower leg with fat layer exposed; L97.811 Non-pressure chronic ulcer of other part of right lower leg limited to breakdown of skin | CPT/HCPCS: 11042; 11045; 97597; A6252; A6253 ==

== ENCOUNTER → 2023-09-07 10:22 | Outpatient (BNVA) | payer MEDICAID, SELFPAY | PROVIDERS: PCP Family Medicine Adult Medicine; Visit Provider Thoracic Surgery (Cardiothoracic Vascular Surgery) | DX: E11.52 Type 2 diabetes mellitus with diabetic peripheral angiopathy with gangrene (principal); E11.622 Type 2 diabetes mellitus with other skin ulcer; I87.2 Venous insufficiency (chronic) (peripheral); L97.811 Non-pressure chronic ulcer of other part of right lower leg limited to breakdown of skin; L97.822 Non-pressure chronic ulcer of other part of left lower leg with fat layer exposed | CPT/HCPCS: 11042; 11045; 97597; A6251 ==

== ENCOUNTER → 2023-09-14 08:21 | Outpatient (BNVA) | payer MEDICAID, SELFPAY | PROVIDERS: PCP Family Medicine Adult Medicine; Visit Provider Thoracic Surgery (Cardiothoracic Vascular Surgery) | DX: E11.52 Type 2 diabetes mellitus with diabetic peripheral angiopathy with gangrene (principal); E11.622 Type 2 diabetes mellitus with other skin ulcer; I87.2 Venous insufficiency (chronic) (peripheral); L97.812 Non-pressure chronic ulcer of other part of right lower leg with fat layer exposed; L97.821 Non-pressure chronic ulcer of other part of left lower leg limited to breakdown of skin | CPT/HCPCS: 11042; 97597; 97598; A6210; A6251; A6253 ==

== ENCOUNTER → 2023-09-21 08:28 | Outpatient (BNVA) | payer MEDICAID, SELFPAY | PROVIDERS: PCP Family Medicine Adult Medicine; Visit Provider Nurse Practitioner Family | DX: E11.52 Type 2 diabetes mellitus with diabetic peripheral angiopathy with gangrene (principal); E11.622 Type 2 diabetes mellitus with other skin ulcer; L97.822 Non-pressure chronic ulcer of other part of left lower leg with fat layer exposed; L97.811 Non-pressure chronic ulcer of other part of right lower leg limited to breakdown of skin; I87.2 Venous insufficiency (chronic) (peripheral) | CPT/HCPCS: 11042; 11045; 97597; A6210; A6251; A6253 ==

== ENCOUNTER → 2023-09-25 13:02 | Outpatient (BNVA) | payer MEDICAID, SELFPAY | PROVIDERS: PCP Family Medicine Adult Medicine; Visit Provider Nurse Practitioner Family | DX: E11.52 Type 2 diabetes mellitus with diabetic peripheral angiopathy with gangrene (principal); E11.622 Type 2 diabetes mellitus with other skin ulcer; L97.811 Non-pressure chronic ulcer of other part of right lower leg limited to breakdown of skin; L97.822 Non-pressure chronic ulcer of other part of left lower leg with fat layer exposed | CPT/HCPCS: 97597; 97598 ==

== ENCOUNTER → 2023-09-26 15:30 | Outpatient (BNVA) | payer MEDICAID, SELFPAY | PROVIDERS: PCP Family Medicine Adult Medicine; Visit Provider Family Medicine Adult Medicine | DX: E11.59 Type 2 diabetes mellitus with other circulatory complications; E11.622 Type 2 diabetes mellitus with other skin ulcer; L97.909 Non-pressure chronic ulcer of unspecified part of unspecified lower leg with unspecified severity; I73.9 Peripheral vascular disease, unspecified; I10 Essential (primary) hypertension | CPT/HCPCS: 83036 ==

== ENCOUNTER 2023-09-28 10:13 | Emergency (ER) | payer MEDICAID, SELFPAY ==
--- NOTE | 2023-09-28 10:21 | ECG_ITS ---
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 Measurements Intervals [place] Rate: 67 P: 250 MN: 106 QRS: 6 QRSD: 126 T: 180 QT: 442 QTc: 467 Interpretive Statements JUNCTIONAL RHYTHM LEFT VENTRICULAR HYPERTROPHY AND ST-T CHANGE [VOLTAGE CRITERIA PLUS ST/T ABNORMALITY] Compared to ECG 05/27/2023 15:15:49 Junctional rhythm now present Left ventricular hypertrophy now present ST (T wave) deviation now present Ventricular-paced complex(es) or rhythm no longer present Electronically Signed On 09-28-2023 16:40:06 [employer] by Hector Day M.D. [email or web address]
[2023-09-28 10:24] VITALS: BP 149/84; PULSE 66; RESP 18; TEMP 36.8; O2SAT 98; BMI 27.3
--- NOTE | 2023-09-28 10:31 | ED_ITS ---
Documented by User: NUHA Aragon 09/28/23 13:12 HPI - Arrhythmia/Palpitations 2 General: Chief Complaint: Arrhythmia/Palpitations Stated Complaint: PVC Time Seen by Provider: 09/28/23 10:16 Source: patient Mode of arrival: EMS Limitations: no limitations History of Present Illness: Patient is a nice 57-year-old male with an extensive past medical history here for palpitations. Patient states he was over at wound care when he told the staff there he was experiencing palpitations. They then sent him to the ED via EMS. Patient states he has no chest pain. He does have a history of a defibrillator/pacemaker. Denies feeling like his defibrillator fired. Denies lightheadedness, dizziness, passing out episodes. MD complaint: skipped beats and palpitations Onset (ago): hour(s) Duration: now resolved Severity: mild Context: occurred during rest Arrhythmia history: pacemaker and AICD Associated symptoms: Reports no associated symptoms; Deny nausea, pre-syncope, syncope or vomiting Review of Systems 2 Const: Denies: fever(s), chills, body aches, fatigue or malaise Card: Reports: palpitations, edema (chronic) and swelling of feet/ankles (chronic); Denies: chest pain, lightheadedness, syncope or pre-syncope Resp: Denies: dyspnea or chest congestion GI: Denies: nausea or vomiting Musc: Denies: neck pain, back pain, extremity pain or joint pain Skin/Breast: Denies: rash Neuro: Denies: headache(s), numbness in extremities, weakness in extremities or sensory changes PFSH ED 2 PFSH: Medical History Elevated blood pressure reading with diagnosis of hypertension Alcoholism with alcohol dependence Diabetes type 2, controlled Neuropathy History of non-ST elevation myocardial infarction (NSTEMI) Abdominal wall hernia Peripheral vascular disease Atrial fibrillation Hypertension CHF (congestive heart failure) EF 15-20% on 03/30 Surgical History Hx of umbilical hernia repair 07/05/23 lap repair of umbilical hernia with mesh- Dr Obrien History of implantable cardioverter-defibrillator (ICD) placement Family History Mother CAD (coronary artery disease) Social History Smoking and tobacco/nicotine status: current every day tobacco/nicotine user cigarettes [ Other cigarette details: 1.5 pack per day x 40 years, currently down to 3-4 cig/day] Alcohol intake: current Alcohol intake frequency: 3 or more drinks per day Alcohol type: beer Substance/Drug Use: former Date of last use: marijuana in 2021 Household members: children Marital status: Single Number of children: 2 Number of grandchildren: 0 Current occupational status: disabled Special duc needs: No Agree to transfusion: Yes Physical Exam 2 Const: COMMON NORMALS: no acute distress, patient oriented x3, no limitations and alert GENERAL APPEARANCE: cooperative and appears older than stated age ORIENTATION/CONSCIOUSNESS: Yes awake, Yes oriented to person, Yes oriented to place and Yes oriented to time Resp: COMMON NORMALS: normal respiratory effort and clear to auscultation bilaterally AUSCULTATION: clear to auscultation bilaterally Cardio: COMMON NORMALS: regular rate and regular rhythm RATE: regular rate RHYTHM: regular rhythm Extremity: NARRATIVE EXTREMITY EXAM: bilateral LE edema; wrapped Neuro: COMMON NORMALS: patient oriented x3, moves all extremities, no focal motor deficits and no sensory deficits noted SENSORIUM/ORIENTATION: Yes alert, Yes oriented to person, Yes oriented to place and Yes oriented to time Course 2 Vital Signs: Vital signs: Vital Signs Temperature 98.2 F 09/28/23 13:14 Pulse Rate 60 09/28/23 13:14 Respiratory Rate 18 09/28/23 13:14 Blood Pressure 170/87 09/28/23 13:14 Pulse Oximetry 96 09/28/23 13:14 Oxygen Delivery Me thod Room Air 09/28/23 12:20 MDM - Arrhythmia/Palpitations Medical Decision Making Patient here following a complaint of palpitations that occurred while he was over the wound care clinic. Patient has no complaints of chest pain. He arrives today with a normal heart rate. Pacemaker attempted to be interrogated however we were not able to generate report or print report. We had to get interrogation machine from cardiology clinic as patient has an SocialDefender FORKLIFT TECHNICIAN-D. They state they do not have a printer at this time to print report. I was able to look directly on the machine and no alerts were recorded for earlier today. Last event recorded was back in June. Pacemaker was interrogated back in March. EKG upon arrival shows a junctional rhythm at a rate of 67. No pacer spikes were noted on EKG. Repeat EKG showing spikes with a rate of 60. I did discuss case with patient's wire preparation worker Dr. Reagan who was able to review EKGs. We also reviewed patient's last interrogation report. Dr. Reagan feels patient is stable to go home at this time with follow-up in clinic. Return to ED precautions given. Lab Data 09/28/23 11:57 09/28/23 11:57 Radiology Impressions Chest X-Ray 09/28/23 10:41 IMPRESSION: No acute intrathoracic findings. Laboratory Results WBC 7.58 10^3/uL (3.29-11.43) 09/28/23 11:57 RBC 5.54 10^6/uL (3.85-5.65) 09/28/23 11:57 Hgb 14.80 g/dL (11.27-16.99) 09/28/23 11:57 Hct 46.0 % (37-53) 09/28/23 11:57 MCV 83.0 fl (82-101) 09/28/23 11:57 MCH 26.7 pg (27-33) L 09/28/23 11:57 MCHC 32.2 g/dL (30-55) 09/28/23 11:57 RDW 13.6 % (12.1-15.1) 09/28/23 11:57 Plt Count 176 10^3/cmm (157-399) 09/28/23 11:57 MPV 10.4 fL (7.4-10.4) 09/28/23 11:57 Neut % (Auto) 53.4 % 09/28/23 11:57 Lymph % (Auto) 33.8 % 09/28/23 11:57 Tift % (Auto) 9.0 % 09/28/23 11:57 Eos % (Auto) 3.0 % 09/28/23 11:57 Baso % (Auto) 0.5 % 09/28/23 11:57 Neut # (Auto) 4.05 10^3/uL (1.8-7.7) 09/28/23 11:57 Lymph # (Auto) 2.6 10^3/uL (0.8-4.8) 09/28/23 11:57 Tift # (Auto) 0.7 10^3/uL (0.2-0.9) 09/28/23 11:57 Eos # (Auto) 0.2 10^3/uL (0.0-0.8) 09/28/23 11:57 Baso # (Auto) 0.0 10^3/uL (0.0-0.1) 09/28/23 11:57 Nucleated RBC % (auto) 0 % 09/28/23 11:57 Nucleated RBCs # 0.0 /100WBC 09/28/23 11:57 Sodium 139 mmol/L (136-145) 09/28/23 11:57 Potassium 4.7 mmol/L (3.5-5.1) 09/28/23 11:57 Chloride 101 mmol/L (98-107) 09/28/23 11:57 Carbon Dioxide 28 mmol/L (22-29) 09/28/23 11:57 Anion Gap 14.7 (5-19) 09/28/23 11:57 BUN 9 mg/dL (6-20) 09/28/23 11:57 Creatinine 0.7 mg/dL (0.7-1.2) 09/28/23 11:57 GFR Calculation 116.7 mL/min (90-130) 09/28/23 11:57 Glucose 106 mg/dL (65-115) 09/28/23 11:57 Calculated Osmolality 287 mOsm/kg (285-295) 09/28/23 11:57 Calcium 9.7 mg/dL (8.5-10.5) 09/28/23 11:57 Total Bilirubin 0.6 mg/dL (0.15-1.2) 09/28/23 11:57 AST 28 U/L (0-40) 09/28/23 11:57 ALT 28 U/L (0-41) 09/28/23 11:57 Alkaline Phosphatase 117 U/L (40-130) 09/28/23 11:57 Troponin T Baseline 10 ng/L (0-15) 09/28/23 11:57 Total Protein 8.6 g/dL (6.6-8.7) 09/28/23 11:57 Albumin 4.6 g/dL (3.5-5.2) 09/28/23 11:57 Globulin 4.0 g/dL (1.3-4.6) 09/28/23 11:57 All radiology interpretation(s) finalized by discharge Discharge Plan Discharge Patient Disposition: Home Clinical Impression: Palpitations Condition: Stable Prescriptions: No Action baclofen 10 mg tablet 10 mg PO BID Qty: 14 0RF (DME) shower chair See Rx Instructions .Route .MEDSUPPLY Qty: 1 0RF Rx Instructions: As directed sulfamethoxazole-trimethoprim [Bactrim DS] 800-160 mg tablet 1 tab PO BID Qty: 20 0RF Lipitor 10 mg tablet 10 mg PO DAILY Qty: 30 5RF metoprolol succinate 100 mg tablet extended release 24 hr 50 mg PO BID Qty: 60 5RF Entresto 49-51 mg tablet 1 tab PO BID Qty: 60 5RF midodrine 10 mg tablet 10 mg PO TID PRN (Reason: for low blood pressure only) Rx Instructions: do not give last dose of day after 6PM or within 4 hrs of bedtime furosemide [Lasix] 40 mg tablet See Rx Instructions .ROUTE .COMPLEX Rx Instructions: 40mg po qam and 80mg po at bedtime metformin 500 mg tablet 500 mg PO BID aspirin 81 mg tablet,delayed release (DR/EC) 81 mg PO DAILY gabapentin 100 mg capsule 200 mg PO TID Eliquis 5 mg tablet 5 mg PO BID Hold Instructions: Resume on 07/08/23. potassium chloride 20 mEq tablet extended release 20 meq PO BID albuterol sulfate 90 mcg/actuation Hfa Aerosol Inhaler 2 puff INHALATION 6XD PRN (Reason: Shortness Of Breath Or Wheezing) budesonide-formoterol [Symbicort] 80-4.5 mcg/actuation Hfa Aerosol Inhaler 1 puff INHALATION BID hydrocodone-acetaminophen 10-325 mg tablet 1 tab PO Q6H PRN (Reason: pain) Qty: 20 0RF Rx Instructions: May take half of a tab at a time Colace 100 mg capsule 100 mg PO BID Qty: 14 0RF Discharge Orders: Discharge ED (Routine); Ordered 09/28/23 Ordered By: Clair Shields Referrals: Jourdan Awad MD [Primary Care Provider] - Activity Restrictions/Additional Instructions: As we discussed I consulted with your wire preparation worker Dr. Reagan who felt like you could safely be discharged at this time. You do have an appointment with him later next month. I have placed a referral with case management to try to get you a sooner appointment. You need to return to the emergency department for complaints of chest pain, lightheadedness/dizziness/passing out episodes, worsening or more frequent palpitations, severe shortness of breath or difficulty breathing, or any other concerns you may have. Coding Level of Care Code ED Felt Finishing Supervisor for Chg Fwd Documented by User: Carlos Alberto Gómez DO 09/29/23 11:36 HPI - Arrhythmia/Palpitations 2 General: Chief Complaint: Arrhythmia/Palpitations Stated Complaint: PVC Time Seen by Provider: 09/28/23 10:16 PFSH ED 2 PFSH: Medical History Elevated blood pressure reading with diagnosis of hypertension Alcoholism with alcohol dependence Diabetes type 2, controlled Neuropathy History of non-ST elevation myocardial infarction (NSTEMI) Abdominal wall hernia Peripheral vascular disease Atrial fibrillation Hypertension CHF (congestive heart failure) EF 15-20% on 03/30 Surgical History Hx of umbilical hernia repair 07/05/23 lap repair of umbilical hernia with mesh- Dr Obrien History of implantable cardioverter-defibrillator (ICD) placement Family History Mother CAD (coronary artery disease) Social History Smoking and tobacco/nicotine status: current every day tobacco/nicotine user cigarettes [ Other cigarette details: 1.5 pack per day x 40 years, currently down to 3-4 cig/day] Alcohol intake: current Alcohol intake frequency: 3 or more drinks per day Alcohol type: beer Substance/Drug Use: former Date of last use: marijuana in 2022 Household members: children Marital status: Single Number of children: 2 Number of grandchildren: 0 Current occupational status: disabled Special duc needs: No Agree to transfusion: Yes Course 2 Vital Signs: Vital signs: Vital Signs Temperature 98.2 F 09/28/23 13:14 Pulse Rate 60 09/28/23 13:14 Respiratory Rate 18 09/28/23 13:14 Blood Pressure 170/87 09/28/23 13:14 Pulse Oximetry 96 09/28/23 13:14 Oxygen Delivery Me thod Room Air 09/28/23 12:20 MDM - Arrhythmia/Palpitations Medical Decision Making Patient here following a complaint of palpitations that occurred while he was over the wound care clinic. Patient has no complaints of chest pain. He arrives today with a normal heart rate. Pacemaker attempted to be interrogated however we were not able to generate report or print report. We had to get interrogation machine from cardiology clinic as patient has an SocialDefender FORKLIFT TECHNICIAN-D. They state they do not have a printer at this time to print report. I was able to look directly on the machine and no alerts were recorded for earlier today. Last event recorded was back in June. Pacemaker was interrogated back in March. EKG upon arrival shows a junctional rhythm at a rate of 67. No pacer spikes were noted on EKG. Repeat EKG showing spikes with a rate of 60. I did discuss case with patient's wire preparation worker Dr. Reagan who was able to review EKGs. We also reviewed patient's last interrogation report. Dr. Reagan feels patient is stable to go home at this time with follow-up in clinic. Return to ED precautions given. Chart reviewed and patient discussed with midlevel. Agree with assessment and plan. Medical Records I reviewed the patient's medical records. Lab Data I reviewed the patient's lab results. 09/28/23 11:57 09/28/23 11:57 Radiology Impressions Chest X-Ray 09/28/23 10:41 IMPRESSION: No acute intrathoracic findings. Laboratory Results WBC 7.58 10^3/uL (3.29-11.43) 09/28/23 11:57 RBC 5.54 10^6/uL (3.85-5.65) 09/28/23 11:57 Hgb 14.80 g/dL (11.27-16.99) 09/28/23 11:57 Hct 46.0 % (37-53) 09/28/23 11:57 MCV 83.0 fl (82-101) 09/28/23 11:57 MCH 26.7 pg (27-33) L 09/28/23 11:57 MCHC 32.2 g/dL (30-55) 09/28/23 11:57 RDW 13.6 % (12.1-15.1) 09/28/23 11:57 Plt Count 176 10^3/cmm (157-399) 09/28/23 11:57 MPV 10.4 fL (7.4-10.4) 09/28/23 11:57 Neut % (Auto) 53.4 % 09/28/23 11:57 Lymph % (Auto) 33.8 % 09/28/23 11:57 Tift % (Auto) 9.0 % 09/28/23 11:57 Eos % (Auto) 3.0 % 09/28/23 11:57 Baso % (Auto) 0.5 % 09/28/23 11:57 Neut # (Auto) 4.05 10^3/uL (1.8-7.7) 09/28/23 11:57 Lymph # (Auto) 2.6 10^3/uL (0.8-4.8) 09/28/23 11:57 Tift # (Auto) 0.7 10^3/uL (0.2-0.9) 09/28/23 11:57 Eos # (Auto) 0.2 10^3/uL (0.0-0.8) 09/28/23 11:57 Baso # (Auto) 0.0 10^3/uL (0.0-0.1) 09/28/23 11:57 Nucleated RBC % (auto) 0 % 09/28/23 11:57 Nucleated RBCs # 0.0 /100WBC 09/28/23 11:57 Sodium 139 mmol/L (136-145) 09/28/23 11:57 Potassium 4.7 mmol/L (3.5-5.1) 09/28/23 11:57 Chloride 101 mmol/L (98-107) 09/28/23 11:57 Carbon Dioxide 28 mmol/L (22-29) 09/28/23 11:57 Anion Gap 14.7 (5-19) 09/28/23 11:57 BUN 9 mg/dL (6-20) 09/28/23 11:57 Creatinine 0.7 mg/dL (0.7-1.2) 09/28/23 11:57 GFR Calculation 116.7 mL/min (90-130) 09/28/23 11:57 Glucose 106 mg/dL (65-115) 09/28/23 11:57 Calculated Osmolality 287 mOsm/kg (285-295) 09/28/23 11:57 Calcium 9.7 mg/dL (8.5-10.5) 09/28/23 11:57 Total Bilirubin 0.6 mg/dL (0.15-1.2) 09/28/23 11:57 AST 28 U/L (0-40) 09/28/23 11:57 ALT 28 U/L (0-41) 09/28/23 11:57 Alkaline Phosphatase 117 U/L (40-130) 09/28/23 11:57 Troponin T Baseline 10 ng/L (0-15) 09/28/23 11:57 Total Protein 8.6 g/dL (6.6-8.7) 09/28/23 11:57 Albumin 4.6 g/dL (3.5-5.2) 09/28/23 11:57 Globulin 4.0 g/dL (1.3-4.6) 09/28/23 11:57 Discharge Plan Discharge Patient Disposition: Home Clinical Impression: Palpitations Condition: Stable Prescriptions: No Action baclofen 10 mg tablet 10 mg PO BID Qty: 14 0RF (DME) shower chair See Rx Instructions .Route .MEDSUPPLY Qty: 1 0RF Rx Instructions: As directed sulfamethoxazole-trimethoprim [Bactrim DS] 800-160 mg tablet 1 tab PO BID Qty: 20 0RF Lipitor 10 mg tablet 10 mg PO DAILY Qty: 30 5RF metoprolol succinate 100 mg tablet extended release 24 hr 50 mg PO BID Qty: 60 5RF Entresto 49-51 mg tablet 1 tab PO BID Qty: 60 5RF midodrine 10 mg tablet 10 mg PO TID PRN (Reason: for low blood pressure only) Rx Instructions: do not give last dose of day after 6PM or within 4 hrs of bedtime furosemide [Lasix] 40 mg tablet See Rx Instructions .ROUTE .COMPLEX Rx Instructions: 40mg po qam and 80mg po at bedtime metformin 500 mg tablet 500 mg PO BID aspirin 81 mg tablet,delayed release (DR/EC) 81 mg PO DAILY gabapentin 100 mg capsule 200 mg PO TID Eliquis 5 mg tablet 5 mg PO BID Hold Instructions: Resume on 07/08/23. potassium chloride 20 mEq tablet extended release 20 meq PO BID albuterol sulfate 90 mcg/actuation Hfa Aerosol Inhaler 2 puff INHALATION 6XD PRN (Reason: Shortness Of Breath Or Wheezing) budesonide-formoterol [Symbicort] 80-4.5 mcg/actuation Hfa Aerosol Inhaler 1 puff INHALATION BID hydrocodone-acetaminophen 10-325 mg tablet 1 tab PO Q6H PRN (Reason: pain) Qty: 20 0RF Rx Instructions: May take half of a tab at a time Colace 100 mg capsule 100 mg PO BID Qty: 14 0RF Discharge Orders: Discharge ED (Routine); Ordered 09/28/23 Ordered By: Clair Shields Referrals: Jourdan Awad MD [Primary Care Provider] - Activity Restrictions/Additional Instructions: As we discussed I consulted with your wire preparation worker Dr. Reagan who felt like you could safely be discharged at this time. You do have an appointment with him later next month. I have placed a referral with case management to try to get you a sooner appointment. You need to return to the emergency department for complaints of chest pain, lightheadedness/dizziness/passing out episodes, worsening or more frequent palpitations, severe shortness of breath or difficulty breathing, or any other concerns you may have. Coding Level of Care Code ED Felt Finishing Supervisor for Cecily Wood
--- NOTE | 2023-09-28 10:41 | XRR_ITS ---
PROCEDURE INFORMATION: Exam: XR Chest Exam date and time: 09/28/2023 10:50 AM Age: 57 years old Clinical indication: Pain; Angina pectoris; Additional info: Palpitations TECHNIQUE: Imaging protocol: Radiologic exam of the chest. Views: 1 view. COMPARISON: CR XR chest 1V portable [id number] 05/27/2023 4:01 PM FINDINGS: Tubes, catheters and devices: Left sided cardiac pacemaker leads in satisfactory position. Lungs: No consolidation. Pleural spaces: No sizable pleural effusion or pneumothorax. Heart/Mediastinum: No cardiomegaly. Bones/joints: Unremarkable. XR/XR chest 1V portable [id number] IMPRESSION: No acute intrathoracic findings.
[2023-09-28 11:07] VITALS: BP 170/87; PULSE 63; RESP 20; O2SAT 99
--- NOTE | 2023-09-28 11:37 | PC.NURSE ---
pt states he has Whitlock pacemaker, ED provider has requested pacemaker interrogation. ED does not have resources to interrogate Whitlock pacemaker. ED staff attempted to contact [facility] and [facility] Business Project Analyst for proper equipment, no responses at this time.
--- NOTE | 2023-09-28 11:50 | PC.PHAR ---
pt states his daughter fan takes care of his medication but states fan doesnt have a phone right now so pt states call his girlfriend barrett [phone]-called barrett she states the pt isnt home right now but states she will have fan call us when she gets back to verify the pts medications-
[2023-09-28 12:07] LABS: Basophils % 0.5 %; Eosinophils # 0.2 10^3/uL (0.0-0.8); Lymphocytes # 2.6 10^3/uL (0.8-4.8); Lymphocytes % 33.8 %; Mean Corpuscular HGB Conc 32.2 g/dL (30-55); Mean Corpuscular Hemoglobin 26.7 pg (27-33); Mean Platelet Volume 10.4 fL (7.4-10.4); Monocytes # 0.7 10^3/uL (0.2-0.9); Neutrophils # 4.05 10^3/uL (1.8-7.7); Neutrophils % 53.4 %; Nucleated Red Blood Cells % 0 %; Platelet Count 176 10^3/cmm (157-399); Red Blood Count 5.54 10^6/uL (3.85-5.65); Red Cell Distribution Width 13.6 % (12.1-15.1); White Blood Count 7.58 10^3/uL (3.29-11.43)
[2023-09-28 12:20] VITALS: PULSE 60; RESP 18; O2SAT 96
--- NOTE | 2023-09-28 12:29 | PC.NURSE ---
this nurse interrogated la pacemaker with proper machine, but machine is unable to print or transmit data. this nurse called [facility] and a nurse assessed machine and stated we are unable to print unless we can find a printer to pull through hooker to machine, and all of our printers are missing at this time. this nurse informed ED provider of update.
[2023-09-28 12:32] LABS: Alanine Aminotransferase 28 U/L (0-41); Albumin Level 4.6 g/dL (3.5-5.2); Alkaline Phosphatase 117 U/L (40-130); Anion Gap 14.7 (5-19); Aspartate Amino Transferase 28 U/L (0-40); Blood Urea Nitrogen 9 mg/dL (6-20); Calcium 9.7 mg/dL (8.5-10.5); Carbon Dioxide 28 mmol/L (22-29); Chloride 101 mmol/L (98-107); Creatinine Clr Calc Pharmacy 119.0193; Glomerular Filtration Rate 116.7 mL/min (90-130); Glucose 106 mg/dL (65-115); Osmolality Calculated 287 mOsm/kg (285-295); Potassium 4.7 mmol/L (3.5-5.1); Sodium 139 mmol/L (136-145); Total Bilirubin 0.6 mg/dL (0.15-1.2); Total Protein 8.6 g/dL (6.6-8.7)
[2023-09-28 12:33] LABS: Troponin(5th) Baseline 10 ng/L (0-15)
--- NOTE | 2023-09-28 12:50 | ECG_ITS ---
[facility] Test Date: 2023-09-28 Pat Name: Andrew Ruggiero Department: Room: Gender: Male Dumpcart Driver: : 1965 Requested By: Clair Shields Order Number: [id number] Wilner MD: Hector Day M.D. Measurements Intervals [place] Rate: 60 P: 217 WY: 157 QRS: 150 QRSD: 134 T: 196 QT: 438 QTc: 438 Interpretive Statements ELECTRONIC ATRIAL PACEMAKER ELECTRONIC VENTRICULAR PACEMAKER ABNORMAL RHYTHM ECG Compared to ECG 09/28/2023 10:21:59 Junctional rhythm no longer present Left ventricular hypertrophy no longer present ST (T wave) deviation no longer present Electronically Signed On 09-28-2023 16:48:22 TOTER by Hector Day M.D. [email or web address]
[2023-09-28 13:14] VITALS: BP 170/87; PULSE 60; RESP 18; TEMP 36.8; O2SAT 96
--- NOTE | 2023-10-02 09:32 | DCPLANNER ---
Message sent to cardiology for pacemaker check-
== END 2023-09-28 13:15 | disposition home or self-care (01) ==
PROVIDERS: Emergency Provider Physician Assistant; PCP Family Medicine Adult Medicine
DX: R00.2 Palpitations (principal); Z79.01 Long term (current) use of anticoagulants; Z79.82 Long term (current) use of aspirin; Z79.84 Long term (current) use of oral hypoglycemic drugs; F17.210 Nicotine dependence, cigarettes, uncomplicated; E11.40 Type 2 diabetes mellitus with diabetic neuropathy, unspecified; I25.2 Old myocardial infarction; I11.0 Hypertensive heart disease with heart failure; I50.9 Heart failure, unspecified
CPT/HCPCS: 11042; 11045; 36415; 71045; 80053; 84484; 85025; 87070; 87075; 87077; 87186; 87205; 93005; 97597; 99285; A6252

== ENCOUNTER → 2023-10-02 13:18 | Outpatient (BNVA) | payer MEDICAID, SELFPAY | PROVIDERS: PCP Family Medicine Adult Medicine; Visit Provider Nurse Practitioner Family | DX: E11.52 Type 2 diabetes mellitus with diabetic peripheral angiopathy with gangrene (principal); E11.622 Type 2 diabetes mellitus with other skin ulcer; L97.811 Non-pressure chronic ulcer of other part of right lower leg limited to breakdown of skin; L97.821 Non-pressure chronic ulcer of other part of left lower leg limited to breakdown of skin; I87.2 Venous insufficiency (chronic) (peripheral) | CPT/HCPCS: 97597; 97598; A6251; A6252 ==

== ENCOUNTER → 2023-10-05 08:45 | Outpatient (BNVA) | payer MEDICAID, SELFPAY | PROVIDERS: PCP Family Medicine Adult Medicine; Visit Provider Thoracic Surgery (Cardiothoracic Vascular Surgery) | DX: E11.52 Type 2 diabetes mellitus with diabetic peripheral angiopathy with gangrene (principal); E11.622 Type 2 diabetes mellitus with other skin ulcer; I87.2 Venous insufficiency (chronic) (peripheral); L97.822 Non-pressure chronic ulcer of other part of left lower leg with fat layer exposed; L97.812 Non-pressure chronic ulcer of other part of right lower leg with fat layer exposed | CPT/HCPCS: 11042; 11045; 97597; A6251; A6252 ==

== ENCOUNTER → 2023-10-12 08:21 | Outpatient (BNVA) | payer MEDICAID, SELFPAY | PROVIDERS: PCP Family Medicine Adult Medicine; Visit Provider Thoracic Surgery (Cardiothoracic Vascular Surgery) | DX: E11.52 Type 2 diabetes mellitus with diabetic peripheral angiopathy with gangrene (principal); E11.622 Type 2 diabetes mellitus with other skin ulcer; L97.822 Non-pressure chronic ulcer of other part of left lower leg with fat layer exposed; L97.811 Non-pressure chronic ulcer of other part of right lower leg limited to breakdown of skin; I87.2 Venous insufficiency (chronic) (peripheral) | CPT/HCPCS: 11042; 97597; A6251; A6252 ==

== ENCOUNTER → 2023-10-18 13:07 | Outpatient (BNVA) | payer MEDICAID, SELFPAY | PROVIDERS: PCP Family Medicine Adult Medicine; Visit Provider Nurse Practitioner Family | DX: E11.52 Type 2 diabetes mellitus with diabetic peripheral angiopathy with gangrene (principal); E11.622 Type 2 diabetes mellitus with other skin ulcer; L97.822 Non-pressure chronic ulcer of other part of left lower leg with fat layer exposed; L97.811 Non-pressure chronic ulcer of other part of right lower leg limited to breakdown of skin | CPT/HCPCS: 11042; 97597; A6252 ==

== ENCOUNTER → 2023-10-23 14:13 | Outpatient (BNVA) | payer MEDICAID, SELFPAY | PROVIDERS: PCP Family Medicine Adult Medicine; Visit Provider Nurse Practitioner Family | DX: E11.52 Type 2 diabetes mellitus with diabetic peripheral angiopathy with gangrene (principal); E11.622 Type 2 diabetes mellitus with other skin ulcer; L97.822 Non-pressure chronic ulcer of other part of left lower leg with fat layer exposed; Z09 Encounter for follow-up examination after completed treatment for conditions other than malignant neoplasm | CPT/HCPCS: 11042; A6253 ==

== ENCOUNTER → 2023-10-25 08:20 | Outpatient (BNVA) | payer MEDICAID, SELFPAY | PROVIDERS: PCP Family Medicine Adult Medicine; Visit Provider Nurse Practitioner Family | DX: E11.52 Type 2 diabetes mellitus with diabetic peripheral angiopathy with gangrene (principal); E11.622 Type 2 diabetes mellitus with other skin ulcer; L97.822 Non-pressure chronic ulcer of other part of left lower leg with fat layer exposed | CPT/HCPCS: 11042; A6251 ==

== ENCOUNTER 2024-10-25 15:10 | Emergency (ER) | payer MEDICAID, SELFPAY ==
[2024-10-25] VITALS (9 sets, daily range): BP systolic 126–149; BP diastolic 71–85; PULSE 66–84; RESP 18; TEMP 36.8; O2SAT 92–99; BMI 26.7
--- NOTE | 2024-10-25 15:14 | ECG_ITS ---
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
--- NOTE | 2024-10-25 15:14 | XRR_ITS ---
PROCEDURE INFORMATION: Exam: XR Chest Exam date and time: 10/25/2024 3:41 PM Age: 58 years old Clinical indication: Other: Syncope TECHNIQUE: Imaging protocol: Radiologic exam of the chest. Views: 1 view. COMPARISON: CR XR chest 1V portable [id number] 09/28/2023 10:50 AM FINDINGS: Tubes, catheters and devices: Left-sided pacemaker. Lungs: Unremarkable. No consolidation. Pleural spaces: Unremarkable. No pleural effusion. No pneumothorax. Heart/Mediastinum: Unremarkable. No cardiomegaly. Bones/joints: Unremarkable. XR/XR chest 1V portable [id number] IMPRESSION: Negative for infiltrate.
--- NOTE | 2024-10-25 15:14 | CTR_ITS ---
PROCEDURE INFORMATION: Exam: CT Head Without Contrast Exam date and time: 10/25/2024 3:39 PM Age: 58 years old Clinical indication: Syncope and collapse TECHNIQUE: Imaging protocol: Computed tomography of the head without contrast. Radiation optimization: All CT scans at this facility use at least one of these dose optimization techniques: automated exposure control; mA and/or kV adjustment per patient size (includes targeted exams where dose is matched to clinical indication); or iterative reconstruction. COMPARISON: CT head wo con* [id number] 05/27/2023 3:30 PM RADIATION DOSE METRICS: Total DLP (mGy-cm): 1099.18 FINDINGS: Brain: Moderate diffuse white matter disease likely reflecting chronic microvascular ischemic changes. Cerebral ventricles: No ventriculomegaly. Paranasal sinuses: Visualized sinuses are unremarkable. No fluid levels. Mastoid air cells: Visualized mastoid air cells are well aerated. Bones: Unremarkable. No acute fracture. Soft tissues: Unremarkable. CT/CT head wo con* [id number] IMPRESSION: Negative for intracranial hemorrhage or mass effect.
--- NOTE | 2024-10-25 15:49 | ED_ITS ---
HPI - Syncope 2 General: Chief Complaint: Syncope Stated Complaint: SYNCOPE Time Seen by Provider: 10/25/24 15:14 History of Present Illness: Andrew Ruggiero is a 58-year-old male that presents to the emergency department with complaints of syncope. Patient reports that he was outside smoking a cigarette. While walking back in he developed leg pain and had a syncopal episode. He does not recall any chest pain or shortness of breath. It was unwitnessed. Patient does have a pacemaker defibrillator. He denies any chest pain at this time. He reports that he has been ill the last couple days. He has been exposed to ill family members in the last week. He reports diarrhea and nausea. He has a cough. Patient's medical history is somewhat suspicious. He has COPD, hyperlipidemia, hypertension, atrial fibrillation and is on Eliquis. He also has a history of diabetes, heart failure and has intermittent issues with hypotension. Previously he was prescribed midodrine due to hypotension but has not taken this in a while.. Associated symptoms: Deny abdominal pain, chest pain, fever(s), headache(s) or nausea Related Data Home Medications Medication Instructions Recorded Confirmed albuterol sulfate 90 mcg/actuation 2 puff inhalation 6XD PRN 05/27/23 09/26/23 aerosol inhaler Shortness Of Breath Or Wheezing apixaban 5 mg tablet (Eliquis) 5 mg PO BID 05/27/23 09/26/23 aspirin 81 mg tablet,delayed 81 mg PO DAILY 05/27/23 09/26/23 release budesonide-formoterol HFA 80 1 puff inhalation BID 05/27/23 09/26/23 mcg-4.5 mcg/actuation aerosol inhaler (Symbicort) furosemide 40 mg tablet (Lasix) See Rx Instructions .Route .COMPLEX 05/27/23 09/26/23 gabapentin 100 mg capsule 200 mg PO TID 05/27/23 09/26/23 metformin 500 mg tablet 500 mg PO BID 05/27/23 09/26/23 potassium chloride 20 mEq 20 meq PO BID 05/27/23 09/26/23 tablet,extended release midodrine 10 mg tablet 10 mg PO TID PRN for low blood 09/26/23 09/26/23 pressure only Previous Rx's Medication Instructions Recorded atorvastatin 10 mg tablet (Lipitor) 10 mg PO DAILY #30 tabs 07/26/23 metoprolol succinate 100 mg 50 mg (1/2 x 100 mg) PO BID #60 04/18/23 tablet,extended release 24 hr tabs sacubitril 49 mg-valsartan 51 mg 1 tab PO BID blood pressure #60 04/18/23 tablet (Entresto) tabs baclofen 10 mg tablet 10 mg PO BID fall/back pain #14 05/29/23 tabs shower chair #1 ea 05/29/23 docusate sodium 100 mg capsule 100 mg PO BID #14 caps 07/05/23 (Colace) cephalexin 500 mg tablet 500 mg PO Q6H 7 days #28 tabs 10/26/24 Allergies Allergy/AdvReac Type Severity Reaction Status Date / Time No Known Allergies Allergy Verified 09/26/23 15:02 Review of Systems 2 General: Reports: 10 or more systems reviewed and unremarkable except in HPI and below Const: Denies: fever(s), chills, change in appetite, change in weight, fatigue or malaise Eyes: Denies: change in vision, eye discomfort, eye discharge or eye redness ENMT: Denies: throat pain, enlarged tonsils, odynophagia, hoarseness, ear or mastoid pain, ear discharge, change in hearing, tinnitus, nasal discharge, nasal congestion, post nasal drip or sinus pain Card: Reports: syncope; Denies: chest pain, palpitations, irregular heart rhythm, edema, dyspnea on exertion, orthopnea or leg pain with exertion Resp: Denies: dyspnea, productive cough, non-productive cough, wheezing, stridor or chest congestion GI: Denies: abdominal pain, nausea, vomiting, dysphagia, diarrhea, constipation, bloating, GI cramping or hematochezia : Denies: flank pain, dysuria, urinary frequency, urinary urgency, urinary hesitancy, oliguria or hematuria Musc: Denies: neck pain, back pain, extremity pain, joint pain, joint swelling, joint redness, joint warmth or muscle weakness Skin/Breast: Denies: rash, pruritus, erythema, photosensitivity or new lesions Neuro: Denies: headache(s), numbness in extremities, weakness in extremities, sensory changes, lack of coordination, difficulty walking, frequent falls, dizziness, confusion, Slurred speech present, difficulty communicating thoughts, seizure-like activity or involuntary movements Endo: Denies: polyuria, polydipsia or tired all the time Jeff/Lymph: Denies: easy bruising or easy bleeding PFSH ED 2 PFSH: Medical History (Updated 10/26/24 @ 00:28 by DOMINIC Bingham) Elevated blood pressure reading with diagnosis of hypertension Alcoholism with alcohol dependence Diabetes type 2, controlled Neuropathy History of non-ST elevation myocardial infarction (NSTEMI) Peripheral vascular disease Atrial fibrillation Hypertension CHF (congestive heart failure) EF 15-20% on 03/30 Surgical History Hx of umbilical hernia repair 07/05/23 lap repair of umbilical hernia with mesh- Dr Obrien History of implantable cardioverter-defibrillator (ICD) placement Family History Mother CAD (coronary artery disease) Social History Smoking and tobacco/nicotine status: current every day tobacco/nicotine user cigarettes [ Other cigarette details: 1.5 pack per day x 40 years, currently down to 3-4 cig/day] Alcohol intake: current Alcohol intake frequency: 3 or more drinks per day Alcohol type: beer Substance/Drug Use: former Date of last use: marijuana in 2021 Household members: children Marital status: Single Number of children: 2 Number of grandchildren: 0 Current occupational status: disabled Special duc needs: No Agree to transfusion: Yes Physical Exam 2 Const: COMMON NORMALS: no acute distress, patient oriented x3 and alert G ENERAL APPEARANCE: cooperative ORIENTATION/CONSCIOUSNESS: Yes awake, Yes oriented to person, Yes oriented to place and Yes oriented to time HENMT: COMMON NORMALS: normocephalic and atraumatic HEAD & SCALP: n ormocephalic and atraumatic FACE & SINUS: normal facial exam MOUTH: Normal oral and palatal mucosa present THROAT: posterior oropharynx normal Eye: COMMON NORMALS: Equal, round and reactive pupils present, EOMs intact bilaterally, conjunctivae normal and no scleral icterus GENERAL EYE: a ppearance normal, both eyes and all related structures ALIGNMENT: Yes alignment normal PERIORBITAL: periorbital findings normal CONJUNCTIVA: Yes conjunctivae normal PUPIL: Yes Equal, round and reactive pupils present Neck/C-Spine: COMMON NORMALS: full ROM GENERAL: Yes normal visual inspection Lymph: LYMPHATIC: no lymphadenopathy noted Chest: COMMONS NORMALS: normal inspection of the chest Breast/axilla inspection: Yes no chest deformity, asymmetry, normal contours, no nodules, masses, tenderness Resp: COMMON NORMALS: normal respiratory effort, No retractions, No use of accessory muscles and clear to auscultation bilaterally EFFORT & INSPECTION: Yes able to speak in complete sentences and Yes symmetric chest movement A USCULTATION: clear to auscultation bilaterally Cardio: COMMON NORMALS: regular rate, regular rhythm and Peripheral pulses 2+ throughout RATE: regular rate RHYTHM: regular rhythm PERIPHERAL PULSES: Peripheral pulses 2+ throughout GI: COMMON NORMALS: Normal to inspection, nondistended, normoactive bowel sounds present, Soft to palpation, non-tender and No hepatosplenomegaly present INSPECTION: Yes normal to inspection AUSCULTATION: Yes normoactive bowel sounds PALPATION: Yes Soft to palpation and Yes No hepatosplenomegaly present RECTAL EXAM: Yes deferred Extremity: GENERAL: Yes edema OTHER: Bilateral lower extremities have numerous ulcers. Moist and cratering ulcers. These appear to be the same wounds he has had in the past based on documentation. Neuro: COMMON NORMALS: patient oriented x3 SENSORIUM/ORIENTATION: Yes alert, Yes oriented to person, Yes oriented to place and Yes oriented to time CRANIAL NERVES: Yes CN normal except as noted Psych: COMMON NORMALS: mental status grossly normal, Normal thought process present, cooperative, activity/motor behavior normal, denies homicidal ideation and denies suicidal ideation THOUGHT PROCESS: Normal thought process present Skin: COMMON NORMALS: no rashes or lesions noted, no wounds and turgor normal GENERAL SKIN EXAM: no rashes or lesions noted and turgor normal Course 2 Vital Signs: Vital signs: Vital Signs Temperature 98.2 F 10/25/24 15:28 Pulse Rate 66 10/25/24 23:20 Respiratory Rate 18 10/25/24 23:20 Blood Pressure 127/71 10/25/24 23:20 Pulse Oximetry 96 10/25/24 23:20 Oxygen Delivery Me thod Room Air 10/25/24 21:00 MDM - Syncope Medical Decision Making Patient was evaluated today for complaints of syncope. He reported recent illness and his son, whom he lives with, has been ill. Patient reported he was outside smoking today and while entering the house had a syncopal episode. Family found him down on the ground. He denies any chest pain or shortness of breath. Initial EKG performed at 1623 and reveals a paced rhythm at a rate of 72 beats a minute. QTc 444. No ectopy or ST elevation. Repeat EKG was performed at 1719 and again reveals ventricular paced rhythm. No ectopy, ST elevation. Subsequent EKGs were unremarkable and unchanged. Patient underwent laboratory evaluation today that included a CBC, CMP, troponin series, BNP, COVID/influenza/RSV, and a urinalysis. The CBC revealed no leukocytosis or anemias. He has no thrombocytopenia. CMP reveals no significant electrolyte abnormality. He has normal renal and liver function. He has a normal anion gap. Troponin series 20, 12, 11 BNP 329. COVID influenza and RSV negative and urinalysis was unremarkable He did undergo a chest x-ray which revealed no infiltrates. I also performed a CT head which was negative for intracranial hemorrhage or mass effect. His heart score was 5 which suggested moderate risk for future cardiac event. Orthostatic vital signs complete and normal We are unable to interrogate pacemaker. It is an [place]. Patient does not have the karrie on his phone. During the course of the evaluation, we disrobe the patient and revealed dressings to bilateral lower extremities. We took these down revealing significant diabetic ulcers. Patient states that he has had these for years. When he lived here back in 2022 in early 2023, he was cared for at the wound care clinic. In early part of 2023 he moved to [place] stopped treatment. He is now moved back and would like to reestablish with wound care. Due to history of VTE he is on Eliquis and aspirin. 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 We obtained an ultrasound bilateral lower extremities due to his ongoing leg complaints and diabetic ulcers. I spoke with the V rad at 10:50 PM he reported a nonocclusive thrombus of the left lower extremity that is likely chronic and there is no evidence of DVT right lower extremity. Patient is already on Eliquis and aspirin We are going to start him on antibiotics for his diabetic ulcers. I have consulted the case management rn for primary care services as well as wound care. Patient is agreeable. Going to discharge him home. He is to return to the emergency department for new, concerning, worsening symptoms Lab Data 10/25/24 15:55 10/25/24 15:55 Radiology Impressions Chest X-Ray 10/25/24 15:14 IMPRESSION: Negative for infiltrate. Head CT 10/25/24 15:14 IMPRESSION: Negative for intracranial hemorrhage or mass effect. Venous Duplex 10/25/24 20:03 IMPRESSION: 1. Nonocclusive thrombus noted within the LEFT mid and distal femoral veins. 2. No RIGHT deep vein thrombosis. 3. RIGHT greater saphenous vein thrombus. ADDENDUM: 10/25/24 2254 THIS REPORT CONTAINS FINDINGS THAT MAY BE CRITICAL TO PATIENT CARE. The findings were verbally communicated via telephone conference with JAXON BENITEZ at 10:53 PM FLATWORK WASHER on 10/25/2024. The findings were acknowledged and understood. Laboratory Results WBC 6.63 10^3/uL (3.29-11.43) 10/25/24 15:55 RBC 5.37 10^6/uL (3.85-5.65) 10/25/24 15:55 Hgb 13.80 g/dL (11.27-16.99) 10/25/24 15:55 Hct 44.1 % (37-53) 10/25/24 15:55 MCV 82.1 fl (82-101) 10/25/24 15:55 MCH 25.7 pg (27-33) L 10/25/24 15:55 MCHC 31.3 g/dL (30-55) 10/25/24 15:55 RDW 13.9 % (12.1-15.1) 10/25/24 15:55 Plt Count 199 10^3/cmm (157-399) 10/25/24 15:55 MPV 10.0 fL (7.4-10.4) 10/25/24 15:55 Neut % (Auto) 55.2 % 10/25/24 15:55 Lymph % (Auto) 31.7 % 10/25/24 15:55 [place] % (Auto) 8.3 % 10/25/24 15:55 Eos % (Auto) 3.8 % 10/25/24 15:55 Baso % (Auto) 0.8 % 10/25/24 15:55 Neut # (Auto) 3.67 10^3/uL (1.8-7.7) 10/25/24 15:55 Lymph # (Auto) 2.1 10^3/uL (0.8-4.8) 10/25/24 15:55 [place] # (Auto) 0.6 10^3/uL (0.2-0.9) 10/25/24 15:55 Eos # (Auto) 0.3 10^3/uL (0.0-0.8) 10/25/24 15:55 Baso # (Auto) 0.1 10^3/uL (0.0-0.1) 10/25/24 15:55 Nucleated RBC % (auto) 0 % 10/25/24 15:55 Nucleated RBCs # 0.0 /100WBC 10/25/24 15:55 Sodium 134 mmol/L (136-145) L 10/25/24 15:55 Potassium 3.8 mmol/L (3.5-5.1) 10/25/24 15:55 Chloride 99 mmol/L (98-107) 10/25/24 15:55 Carbon Dioxide 22 mmol/L (22-29) 10/25/24 15:55 Anion Gap 16.8 (5-19) 10/25/24 15:55 BUN 9 mg/dL (6-20) 10/25/24 15:55 Creatinine 0.9 mg/dL (0.7-1.2) 10/25/24 15:55 GFR Calculation 87.0 mL/min (90-130) L 10/25/24 15:55 Glucose 172 mg/dL (65-115) H 10/25/24 15:55 Calculated Osmolality 281 mOsm/kg (285-295) L 10/25/24 15:55 Calcium 8.7 mg/dL (8.5-10.5) 10/25/24 15:55 Total Bilirubin 0.3 mg/dL (0.15-1.2) 10/25/24 15:55 AST 19 U/L (0-40) 10/25/24 15:55 ALT 19 U/L (0-41) 10/25/24 15:55 Alkaline Phosphatase 94 U/L (40-130) 10/25/24 15:55 Troponin T Baseline 20 ng/L (0-15) H 10/25/24 15:55 Troponin T 120 Minute 12.36 ng/L (0-15) 10/25/24 18:04 Delta Troponin T -7.64 ABS# (0-10) L 10/25/24 18:04 Troponin T Hi Sens 6Hr 11.23 ng/L (0-15) 10/25/24 23:21 Troponin T Hi Sens 6Hr Delta -8.77 ng/L (0-12) L 10/25/24 23:21 NT-Pro-B Natriuret Pep 329 pg/mL (0-125) H 10/25/24 15:55 Total Protein 7.5 g/dL (6.6-8.7) 10/25/24 15:55 Albumin 3.7 g/dL (3.5-5.2) 10/25/24 15:55 Globulin 3.8 g/dL (1.3-4.6) 10/25/24 15:55 Urine Color Yellow (Yellow) 10/25/24 15:30 Urine Appearance Clear (CLEAR) 10/25/24 15:30 Urine pH 6.0 (5-7) 10/25/24 15:30 Ur Specific [place] 1.003 (1.005-1.030) L 10/25/24 15:30 Urine Protein Negative (Negative) 10/25/24 15:30 Urine Glucose (UA) Negative (Normal) 10/25/24 15:30 Urine Ketones Negative (Negative) 10/25/24 15:30 Urine Blood Negative (Negative) 10/25/24 15:30 Urine Nitrate Negative (Negative) 10/25/24 15:30 Urine Bilirubin Negative (Negative) 10/25/24 15:30 Urine Urobilinogen 1.0 mg/dL (Negative) 10/25/24 15:30 Ur Leukocyte Esterase Negative (Negative) 10/25/24 15:30 Urine RBC 0-2 /hpf (0-2) 10/25/24 15:30 Urine WBC 0-5 /hpf (0-5) 10/25/24 15:30 Ur Squamous Epith Cells 0-5 /hpf (0-5) 10/25/24 15:30 Amorphous Sediment Not Reportable 10/25/24 15:30 Urine Bacteria None seen /hpf (NONE) 10/25/24 15:30 Hyaline Casts 0-4 /lpf H 10/25/24 15:30 Ethyl Alcohol 57 mg/dL (0-10) H 10/25/24 15:55 Coronavirus (PCR) Negative (Negative) 10/25/24 15:30 Influenza A (PCR) Negative (Negative) 10/25/24 15:30 Influenza Type B (PCR) Negative (Negative) 10/25/24 15:30 RSV (PCR) Negative (Negative) 10/25/24 15:30 All radiology interpretation(s) finalized by discharge Discharge Plan Discharge Patient Disposition: Home Clinical Impression: Syncope, Diabetic leg ulcer, Diarrhea Condition: Stable Prescriptions: New cephalexin 500 mg tablet 500 mg PO Q6H 7 Days Qty: 28 0RF No Action baclofen 10 mg tablet 10 mg PO BID Qty: 14 0RF (DME) shower chair See Rx Instructions .Route .MEDSUPPLY Qty: 1 0RF Rx Instructions: As directed Lipitor 10 mg tablet 10 mg PO DAILY Qty: 30 5RF metoprolol succinate 100 mg tablet extended release 24 hr 50 mg PO BID Qty: 60 5RF Entresto 49-51 mg tablet 1 tab PO BID Qty: 60 5RF midodrine 10 mg tablet 10 mg PO TID PRN (Reason: for low blood pressure only) Rx Instructions: do not give last dose of day after 6PM or within 4 hrs of bedtime furosemide [Lasix] 40 mg tablet See Rx Instructions .ROUTE .COMPLEX Rx Instructions: 40mg po qam and 80mg po at bedtime metformin 500 mg tablet 500 mg PO BID aspirin 81 mg tablet,delayed release (DR/EC) 81 mg PO DAILY gabapentin 100 mg capsule 200 mg PO TID Eliquis 5 mg tablet 5 mg PO BID Hold Instructions: Resume on 07/08/23. potassium chloride 20 mEq tablet extended release 20 meq PO BID albuterol sulfate 90 mcg/actuation Hfa Aerosol Inhaler 2 puff INHALATION 6XD PRN (Reason: Shortness Of Breath Or Wheezing) budesonide-formoterol [Symbicort] 80-4.5 mcg/actuation Hfa Aerosol Inhaler 1 puff INHALATION BID Colace 100 mg capsule 100 mg PO BID Qty: 14 0RF Discharge Orders: Discharge ED (Routine); Ordered 10/26/24 Ordered By: Jaxon Moran [facility] Referrals: Jourdan Awad MD [Primary Care Provider] - Discharge Diet: Advance as tolerated Patient Instructions: Cephalexin (By mouth), Apixaban (By mouth), Syncope (ED), Deep Vein Thrombosis (ED), Foot Ulcers in a Person with Diabetes (ED), Deep Vein Thrombosis Prevention (ED), Pain Management Activity Restrictions/Additional Instructions: Symptoms closely. Return to the emergency department for new, concerning, worsening symptoms Make sure that you transfer safely. Take extra time when transitioning from sitting to standing. Please take your antibiotics as prescribed Have asked the case management rn to contact you first part of this week to help get you established with the wound care clinic as well as primary care. Please ensure that you follow through with this. Coding Level of Care Code ED Shampoo Technician for Cecily Wood
[2024-10-25 15:54] LABS: Bilirubin Urine Negative (Negative); Blood Urine Negative (Negative); Glucose Urine UA Negative (Normal); Ketones Urine Negative (Negative); Leukocyte Esterase Urine Negative (Negative); Nitrate Urine Negative (Negative); Protein Urine Negative (Negative); Specific Gravity, Urine 1.003 (1.005-1.030); Urine Appearance Clear (CLEAR); Urine Color Yellow (Yellow)
[2024-10-25 15:59] LABS: Add Urine Microscopic? YES; Bacteria Urine None Seen /hpf; Hyaline Casts Urine 0-4 /lpf; RBC Urine 0-2 /hpf (0-2); Squamous Epithelial Cell Urine 0-5 /hpf (0-5); WBC Urine 0-5 /hpf (0-5)
[2024-10-25 16:00] LABS: Basophils # 0.1 10^3/uL (0.0-0.1); Basophils % 0.8 %; Eosinophils # 0.3 10^3/uL (0.0-0.8); Eosinophils % 3.8 %; Hematocrit 44.1 % (37-53); Lymphocytes # 2.1 10^3/uL (0.8-4.8); Lymphocytes % 31.7 %; Mean Corpuscular HGB Conc 31.3 g/dL (30-55); Mean Corpuscular Hemoglobin 25.7 pg (27-33); Mean Corpuscular Volume 82.1 fl (82-101); Monocytes # 0.6 10^3/uL (0.2-0.9); Monocytes % 8.3 %; Neutrophils # 3.67 10^3/uL (1.8-7.7); Neutrophils % 55.2 %; Nucleated Red Blood Cells % 0 %; Platelet Count 199 10^3/cmm (157-399); Red Blood Count 5.37 10^6/uL (3.85-5.65); Red Cell Distribution Width 13.9 % (12.1-15.1); White Blood Count 6.63 10^3/uL (3.29-11.43)
[2024-10-25 16:18] LABS: Troponin(5th) Baseline 20 ng/L (0-15)
[2024-10-25 16:23] LABS: Alanine Aminotransferase 19 U/L (0-41); Albumin Level 3.7 g/dL (3.5-5.2); Alcohol Level 57 mg/dL (0-10); Alkaline Phosphatase 94 U/L (40-130); Aspartate Amino Transferase 19 U/L (0-40); Blood Urea Nitrogen 9 mg/dL (6-20); Calcium 8.7 mg/dL (8.5-10.5); Carbon Dioxide 22 mmol/L (22-29); Chloride 99 mmol/L (98-107); Creatinine Clr Calc Pharmacy 90.5387; Globulin 3.8 g/dL (1.3-4.6); Glucose 172 mg/dL (65-115); Osmolality Calculated 281 mOsm/kg (285-295); Sodium 134 mmol/L (136-145); Total Bilirubin 0.3 mg/dL (0.15-1.2); Total Protein 7.5 g/dL (6.6-8.7)
[2024-10-25 16:26] LABS: Anion Gap 16.8 (5-19); Potassium 3.8 mmol/L (3.5-5.1)
[2024-10-25 16:31] LABS: Covid PCR NEGATIVE (Negative); Influenza A NEGATIVE (Negative); Influenza B NEGATIVE (Negative); Respiratory Syncytial Virus Ce NEGATIVE (Negative)
[2024-10-25 16:41] LABS: NT Pro B Type Natriuretic Pept 329 pg/mL (0-125)
--- NOTE | 2024-10-25 17:19 | ECG_ITS ---
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
[2024-10-25 18:30] LABS: Troponin 5 2HR 12.36 ng/L (0-15); Troponin 5 2HR Delta -7.64 ABS# (0-10)
--- NOTE | 2024-10-25 20:03 | USR_ITS ---
PROCEDURE INFORMATION: Exam: US Duplex Lower Extremity Veins, Bilateral Exam date and time: 10/25/2024 9:28 PM Age: 58 years old Clinical indication: Pain; Leg, upper and leg, lower; Bilateral; Additional info: HX of dvt, diabetic ulcers, pain TECHNIQUE: Imaging protocol: Real-time duplex ultrasound of the bilateral extremities with 2-D bender scale, color Doppler flow and spectral waveform analysis including responses to compression and other maneuvers (when performed) with image documentation. Complete exam focused on the lower extremity veins. COMPARISON: [place] [id number] 03/03/2023 3:56 PM FINDINGS: Right deep veins: Unremarkable. The common femoral, femoral, proximal profunda femoral and popliteal veins are patent without thrombus. Normal Doppler waveforms. Normal compressibility and/or augmentation response. Left deep veins: There is nonocclusive thrombus within the mid and distal femoral veins. The common femoral, proximal profunda femoral and popliteal veins are patent without thrombus. Normal Doppler waveforms. Normal compressibility and/or augmentation response. Superficial veins: Thrombus noted within the right greater saphenous vein. Soft tissues: Unremarkable. US/[place] [id number] IMPRESSION: 1. Nonocclusive thrombus noted within the LEFT mid and distal femoral veins. 2. No RIGHT deep vein thrombosis. 3. RIGHT greater saphenous vein thrombus.
[2024-10-25] MEDS: cephALEXin 500 mg Capsule PO (21:00)
[2024-10-25 23:48] LABS: Troponin 5 6HR 11.23 ng/L (0-15)
[2024-10-25 23:51] LABS: Troponin 5 6HR Delta -8.77 ng/L (0-12)
[2024-10-26 00:43] VITALS: BP 140/73; PULSE 72; RESP 18; O2SAT 97
--- NOTE | 2024-10-29 09:13 | DCPLANNER ---
Message sent to clinics to establish PCP.
== END 2024-10-26 00:41 | disposition home or self-care (01) ==
PROVIDERS: Emergency Provider Nurse Practitioner; PCP Family Medicine Adult Medicine
DX: R55 Syncope and collapse (principal); E11.622 Type 2 diabetes mellitus with other skin ulcer; L97.929 Non-pressure chronic ulcer of unspecified part of left lower leg with unspecified severity; R19.7 Diarrhea, unspecified; Z11.52 Encounter for screening for COVID-19; Z79.84 Long term (current) use of oral hypoglycemic drugs; Z79.82 Long term (current) use of aspirin; Z79.01 Long term (current) use of anticoagulants; F17.210 Nicotine dependence, cigarettes, uncomplicated; I11.0 Hypertensive heart disease with heart failure; I50.9 Heart failure, unspecified; E11.40 Type 2 diabetes mellitus with diabetic neuropathy, unspecified
CPT/HCPCS: 36415; 70450; 71045; 80053; 80307; 81001; 83880; 84484; 85025; 87637; 93005; 93970; 99285

== ENCOUNTER 2024-11-21 11:55 | Inpatient (IN) | payer MEDICAID, SELFPAY ==
[2024-11-21] VITALS (9 sets, daily range): BP systolic 107–156; BP diastolic 64–96; PULSE 64–88; RESP 15–21; TEMP 36.6; O2SAT 94–99; BMI 27.1; BMI 26.4
--- NOTE | 2024-11-21 12:03 | XR_ITS ---
WS: [id number] Portable AP upright chest, 11/21/2024 Clinical Data: dyspnea/cough Comparison: Portable chest, 10/25/2024 Findings: No nodules, masses or effusions are seen. The heart is normal. The pulmonary vascularity is not increased. No pneumonia or pneumothorax is seen. There is a cardiac pacemaker with the generator overlying the left lower lateral chest. The wires end in the cardiac chambers. The aortic arch shows mild tortuosity. There are monitor leads on the chest wall. XR/XR chest 1V portable [id number] Impression: Atherosclerosis and cardiac pacemaker.
--- NOTE | 2024-11-21 12:03 | ECG_ITS ---
[employer] [facility] Test Date: 2024-11-21 Pat Name: Andrew Ruggiero Department: Room: Gender: Male Site Project Manager: : 1965 Requested By: Carlos Alberto Mcclellan Order Number: [id number] Wilner MD: Ismael Sue M.D. Measurements Intervals [place] Rate: 88 P: 247 TN: 96 QRS: 24 QRSD: 140 T: 194 QT: 406 QTc: 493 Interpretive Statements UNCERTAIN IRREGULAR RHYTHM ELECTRONIC VENTRICULAR PACEMAKER -- CONTOUR ANALYSIS BASED ON INTRINSIC RHYTHM LEFT BUNDLE BRANCH BLOCK [120+ ms QRS DURATION, 80+ ms Q/S IN V1/V2, 85+ ms R IN I/aVL/V5/V6] Compared to ECG 10/25/2024 17:19:51 Left bundle-branch block now present Electronically Signed On 11-22-2024 07:43:44 SOFTWARE ENGINEERING PROJECT MANAGER by Ismael Sue M.D. [id number]
[2024-11-21 12:22] LABS: Add Urine Microscopic? NO
[2024-11-21 12:28] LABS: Basophils # 0.1 10^3/uL (0.0-0.1); Basophils % 0.6 %; Eosinophils # 0.2 10^3/uL (0.0-0.8); Eosinophils % 2.7 %; Hematocrit 39.3 % (37-53); Lymphocytes # 1.6 10^3/uL (0.8-4.8); Lymphocytes % 20.5 %; Mean Corpuscular HGB Conc 32.1 g/dL (30-55); Mean Corpuscular Hemoglobin 25.8 pg (27-33); Mean Corpuscular Volume 80.4 fl (82-101); Mean Platelet Volume 11.5 fL (7.4-10.4); Monocytes # 0.5 10^3/uL (0.2-0.9); Monocytes % 5.7 %; Neutrophils # 5.54 10^3/uL (1.8-7.7); Neutrophils % 70.2 %; Nucleated Red Blood Cells % 0 %; Platelet Count 223 10^3/cmm (157-399); Red Blood Count 4.89 10^6/uL (3.85-5.65); Red Cell Distribution Width 13.3 % (12.1-15.1); White Blood Count 7.89 10^3/uL (3.29-11.43)
[2024-11-21 12:33] LABS: Bilirubin Urine Negative (Negative); Blood Urine Negative (Negative); Glucose Urine UA 3+ (Normal); Ketones Urine Negative (Negative); Leukocyte Esterase Urine Negative (Negative); Nitrate Urine Negative (Negative); Protein Urine Negative (Negative); Urine Appearance Clear (CLEAR); Urine Color Yellow (Yellow)
--- NOTE | 2024-11-21 12:34 | W.ED.EXTPRO ---
HPI - Extremity Problem General: Chief complaint: Extremity Problem,Nontraumatic Stated complaint: sob, leg cellulitis Time Seen by Provider: 11/21/24 12:03 History of Present Illness: 58-year-old male presents emergency room complaining of shortness of breath swelling in his legs have wounds that are chronic. He has been able to ambulate on them he recently moved here from [place] he has not seen any wound care since the beginning of the year he denies fever chest or abdominal pain Associated symptoms: Deny chest pain, fever(s) or rash Related Data Home Medications ?Medication ?Instructions ?Recorded ?Confirmed aspirin 81 mg tablet,delayed 81 mg PO DAILY 05/27/23 11/21/24 release sacubitril 49 mg-valsartan 51 mg 1 tab PO BID 11/21/24 11/21/24 tablet (Entresto) Previous Rx's ?Medication ?Instructions ?Recorded shower chair #1 ea 05/29/23 apixaban 5 mg tablet (Eliquis) 5 mg PO BID #60 tabs 11/18/24 atorvastatin 10 mg tablet (Lipitor) 10 mg PO DAILY #30 tabs 11/18/24 empagliflozin 10 mg tablet 10 mg PO DAILY #30 tabs 11/18/24 (Jardiance) metoprolol succinate 100 mg 50 mg (1/2 x 100 mg) PO BID #30 11/18/24 tablet,extended release 24 hr tabs potassium chloride 20 mEq 20 meq PO BID #60 tabs 11/18/24 tablet,extended release spironolactone 25 mg tablet 12.5 mg (1/2 x 25 mg) PO DAILY #15 11/18/24 tabs Allergies Allergy/AdvReac Type Severity Reaction Status Date / Time No Known Allergies Allergy Verified 11/18/24 16:24 Review of Systems Const: Denies: fever(s) or chills Card: Denies: chest pain Resp: Denies: dyspnea GI: Denies: abdominal pain : Denies: dysuria, urinary frequency or urinary urgency Musc: Denies: neck pain or back pain Skin/Breast: Denies: rash PFSH ED PFSH: Medical History Elevated blood pressure reading with diagnosis of hypertension Alcoholism with alcohol dependence Diabetes type 2, controlled Neuropathy History of non-ST elevation myocardial infarction (NSTEMI) Peripheral vascular disease Atrial fibrillation Hypertension CHF (congestive heart failure) EF 15-20% on 03/30 Surgical History Hx of umbilical hernia repair 07/05/23 lap repair of umbilical hernia with mesh- Dr Obrien History of implantable cardioverter-defibrillator (ICD) placement Family History Mother CAD (coronary artery disease) Social History Smoking and tobacco/nicotine status: never used tobacco/nicotine Alcohol intake: current Alcohol intake frequency: 3 or more drinks per day Alcohol type: beer Substance/Drug Use: former Date of last use: marijuana in 2021 Household members: children Marital status: Single Number of children: 2 Number of grandchildren: 0 Current occupational status: disabled Special duc needs: No Agree to transfusion: Yes Physical Exam Const: COMMON NORMALS: no acute distress GENERAL APPEARANCE: cooperative and comfortable ORIENTATION/CONSCIOUSNESS: Yes awake, Yes oriented to person, Yes oriented to place and Yes oriented to time HENMT: COMMON NORMALS: normocephalic, atraumatic and hearing grossly normal bilaterally HEAD & SCALP: normocephalic and atraumatic Resp: COMMON NORMALS: normal respiratory effort, No retractions, No use of accessory muscles and clear to auscultation bilaterally AUSCULTATION: clear to auscultation bilaterally Cardio: COMMON NORMALS: regular rate, regular rhythm and No murmurs present (Cardio) RATE: regular rate RHYTHM: regular rhythm GI: COMMON NORMALS: Soft to palpation and No hepatosplenomegaly present AUSCULTATION: Yes normoactive bowel sounds PALPATION: Yes Soft to palpation, No Tenderness to palpation present (GI), No Guarding due to palpation present (GI) and Yes No hepatosplenomegaly present Extremity: COMMON NORMALS: normal to inspection, capillary refill normal, no clubbing, cyanosis or edema, no calf tenderness and no pedal edema OTHER: Neuro: SENSORIUM/ORIENTATION: Yes oriented to person, Yes oriented to place and Yes oriented to time Skin: COMMON NORMALS: no rashes or lesions noted GENERAL SKIN EXAM: no rashes or lesions noted Course Vital Signs: Vital signs: Vital Signs Temperature 97.9 F 11/21/24 12:01 Pulse Rate 85 11/21/24 12:01 Respiratory Rate 17 11/21/24 12:01 Blood Pressure 110/65 11/21/24 12:01 Pulse Oximetry 95 11/21/24 12:01 Oxygen Delivery Me thod Room Air 11/21/24 12:01 MDM - Extremity (Nontraumatic) Medical Decision Making Extensive leg ulcers that are chronic they do need debridement he appears to have a new active cellulitis we will start him on linezolid cultures done. Discussed with hospitalist will consult general surgery as well for possible debridement. Venous duplex shows DVTs much of which appears chronic some may be more acute he is on Eliquis. His arterial Dopplers are negative. He has good triphasic flow down to the lower leg. Orders written for admission. Medical Records I reviewed the patient's medical records. Lab Data I reviewed the patient's lab results. 11/21/24 11:39 11/21/24 11:39 Radiology Impressions Chest X-Ray 11/21/24 12:03 Impression: Atherosclerosis and cardiac pacemaker. Duplex Scan Lower Extremity Artery 11/21/24 13:38 IMPRESSION: No significant arterial stenosis or occlusion, however I am concerned for distal inflow disease in the left lower extremity. Laboratory Results WBC 7.89 10^3/uL (3.29-11.43) 11/21/24 11:39 RBC 4.89 10^6/uL (3.85-5.65) 11/21/24 11:39 Hgb 12.60 g/dL (11.27-16.99) 11/21/24 11:39 Hct 39.3 % (37-53) 11/21/24 11:39 MCV 80.4 fl (82-101) L 11/21/24 11:39 MCH 25.8 pg (27-33) L 11/21/24 11:39 MCHC 32.1 g/dL (30-55) 11/21/24 11:39 RDW 13.3 % (12.1-15.1) 11/21/24 11:39 Plt Count 223 10^3/cmm (157-399) 11/21/24 11:39 MPV 11.5 fL (7.4-10.4) H 11/21/24 11:39 Neut % (Auto) 70.2 % 11/21/24 11:39 Lymph % (Auto) 20.5 % 11/21/24 11:39 [place] % (Auto) 5.7 % 11/21/24 11:39 Eos % (Auto) 2.7 % 11/21/24 11:39 Baso % (Auto) 0.6 % 11/21/24 11:39 Neut # (Auto) 5.54 10^3/uL (1.8-7.7) 11/21/24 11:39 Lymph # (Auto) 1.6 10^3/uL (0.8-4.8) 11/21/24 11:39 [place] # (Auto) 0.5 10^3/uL (0.2-0.9) 11/21/24 11:39 Eos # (Auto) 0.2 10^3/uL (0.0-0.8) 11/21/24 11:39 Baso # (Auto) 0.1 10^3/uL (0.0-0.1) 11/21/24 11:39 Nucleated RBC % (auto) 0 % 11/21/24 11:39 Nucleated RBCs # 0.0 /100WBC 11/21/24 11:39 Sodium 135 mmol/L (136-145) L 11/21/24 11:39 Potassium 4.1 mmol/L (3.5-5.1) 11/21/24 11:39 Chloride 102 mmol/L (98-107) 11/21/24 11:39 Carbon Dioxide 20 mmol/L (22-29) L 11/21/24 11:39 Anion Gap 17.1 (5-19) 11/21/24 11:39 BUN 6 mg/dL (6-20) 11/21/24 11:39 Creatinine 1.0 mg/dL (0.7-1.2) 11/21/24 11:39 GFR Calculation 77.0 mL/min (90-130) L 11/21/24 11:39 Glucose 316 mg/dL (65-115) H 11/21/24 11:39 Calculated Osmolality 290 mOsm/kg (285-295) 11/21/24 11:39 Calcium 9.0 mg/dL (8.5-10.5) 11/21/24 11:39 Total Bilirubin 0.5 mg/dL (0.15-1.2) 11/21/24 11:39 AST 13 U/L (0-40) 11/21/24 11:39 ALT 8 U/L (0-41) 11/21/24 11:39 Alkaline Phosphatase 84 U/L (40-130) 11/21/24 11:39 Creatine Kinase 36 U/L (39-308) L 11/21/24 14:42 C-Reactive Protein 58.9 mg/L (0.0-4.9) H 11/21/24 14:42 Total Protein 7.9 g/dL (6.6-8.7) 11/21/24 11:39 Albumin 3.3 g/dL (3.5-5.2) L 11/21/24 11:39 Globulin 4.6 g/dL (1.3-4.6) 11/21/24 11:39 Urine Color Yellow (Yellow) 11/21/24 12:13 Urine Appearance Clear (CLEAR) 11/21/24 12:13 Urine pH 6.0 (5-7) 11/21/24 12:13 Ur Specific [place] 1.035 (1.005-1.030) H 11/21/24 12:13 Urine Protein Negative (Negative) 11/21/24 12:13 Urine Glucose (UA) 3+ (Normal) H 11/21/24 12:13 Urine Ketones Negative (Negative) 11/21/24 12:13 Urine Blood Negative (Negative) 11/21/24 12:13 Urine Nitrate Negative (Negative) 11/21/24 12:13 Urine Bilirubin Negative (Negative) 11/21/24 12:13 Urine Urobilinogen 1.0 mg/dL (Negative) 11/21/24 12:13 Ur Leukocyte Esterase Negative (Negative) 11/21/24 12:13 Amorphous Sediment Not Reportable 11/21/24 12:13 All radiology interpretation(s) finalized by discharge Discharge Plan Discharge Patient Disposition: Admitted As Inpatient Clinical Impression: Cellulitis, Deep vein thrombosis of lower extremity, Diabetic leg ulcer, Alcoholism with alcohol dependence, Hypertension, Chronic ulcer of leg, Atrial fibrillation Condition: Stable Prescriptions: No Action (DME) shower chair See Rx Instructions .Route .MEDSUPPLY Qty: 1 0RF Rx Instructions: As directed Eliquis 5 mg tablet 5 mg PO BID Qty: 60 0RF potassium chloride 20 mEq tablet extended release 20 meq PO BID Qty: 60 0RF spironolactone 25 mg tablet 12.5 mg PO DAILY Qty: 15 0RF Jardiance 10 mg tablet 10 mg PO DAILY Qty: 30 0RF Lipitor 10 mg tablet 10 mg PO DAILY Qty: 30 0RF metoprolol succinate 100 mg tablet extended release 24 hr 50 mg PO BID Qty: 30 0RF aspirin 81 mg tablet,delayed release (DR/EC) 81 mg PO DAILY sacubitril-valsartan [Entresto] 49-51 mg tablet 1 tab PO BID Referrals: Oliver Dempsey MD [Primary Care Provider] - Print Language: Czech Coding Level of Care Code ED Lidar Technician for Cecily Wood
[2024-11-21 12:37] LABS: Specific Gravity, Urine 1.035 (1.005-1.030)
--- NOTE | 2024-11-21 12:37 | USCV_ITS ---
Andrew Ruggiero Age: 58 Gender: M : 1965 Exam Date: 11/21/2024 14:01 Ordering Phys: Carlos Alberto Gómez DO Technologist: ODELL [place] [facility] [place]: Large LE sores HISTORY: LE SORES PROCEDURES: Venous duplex imaging was performed in bilateral lower extremities. The following venous structures were evaluated: common femoral vein, profunda vein, proximal portion of the greater saphenous vein, superficial femoral vein, and the popliteal vein. In addition, the posterior tibial and peroneal trunk were evaluated. Serial compression, augmentation maneuvers, and spectral Doppler flow evaluation were performed. FINDINGS: Partial Chronic thrombus noted in femoral through pop veins. On eliquis. a couple area of reflux noted bilaterally CONCLUSIONS Non occlusive chronic thrombus LEFT femoral through popliteal veins. RIGHT GSV thrombus above and below the knee has a more acute to subacute appearance No dvt RIGHT lower extremity Alfonso Burnham MD (Electronically Signed) Final Date: 21 November 2024 14:51 S
[2024-11-21 12:38] LABS: Charge for UA Resulting for Rev
[2024-11-21 12:39] LABS: Alanine Aminotransferase 8 U/L (0-41); Albumin Level 3.3 g/dL (3.5-5.2); Alkaline Phosphatase 84 U/L (40-130); Aspartate Amino Transferase 13 U/L (0-40); Blood Urea Nitrogen 6 mg/dL (6-20); Carbon Dioxide 20 mmol/L (22-29); Chloride 102 mmol/L (98-107); Globulin 4.6 g/dL (1.3-4.6); Glucose 316 mg/dL (65-115); Osmolality Calculated 290 mOsm/kg (285-295); Sodium 135 mmol/L (136-145); Total Bilirubin 0.5 mg/dL (0.15-1.2); Total Protein 7.9 g/dL (6.6-8.7)
[2024-11-21 12:40] LABS: Anion Gap 17.1 (5-19); Potassium 4.1 mmol/L (3.5-5.1)
--- NOTE | 2024-11-21 13:38 | USR_ITS ---
PROCEDURE INFORMATION: Exam: US Duplex Bilateral Lower Extremity Arteries Exam date and time: 11/21/2024 2:13 PM Age: 58 years old Clinical indication: Condition or disease; Other: Le sores; Additional info: Chronic le ulcers TECHNIQUE: Imaging protocol: Real-time ultrasound scan of the arteries of the bilateral lower extremities with 2-D bender scale, color Doppler flow and spectral waveform analysis. Images documented and saved. COMPARISON: [place] [id number] 02/28/2023 6:11 PM FINDINGS: Right external iliac artery: Right common iliac artery is patent and without stenosis or occlusion. Right common femoral artery: Right common femoral artery is patent and without stenosis or occlusion. Right superficial femoral artery: Right superficial femoral artery is patent and without stenosis or occlusion. Right popliteal artery: Right popliteal artery is patent and without stenosis or occlusion. Right calf/foot arteries: Right posterior tibial artery is patent and without stenosis or occlusion. Right dorsalis pedis artery is patent and without stenosis or occlusion. Right anterior tibial artery was not imaged. Left external iliac artery: Left common iliac artery is patent and without stenosis or occlusion. Left common femoral artery: Left common femoral artery is patent and without stenosis or occlusion. Left superficial femoral artery: Left superficial femoral artery is patent and without stenosis or occlusion. Left popliteal artery: Left popliteal artery is patent and without stenosis or occlusion, however there is decreased flow velocity as compared with the right (54 cm/s), concerning for a degree of inflow disease. Left calf/foot arteries: Left posterior tibial artery is patent and without stenosis or occlusion, however with a decreased flow velocity as compared with the right side (36 cm/s), concerning for a degree of inflow disease. Left dorsalis pedis artery is patent and without stenosis or occlusion. US/[place] [id number] IMPRESSION: No significant arterial stenosis or occlusion, however I am concerned for distal inflow disease in the left lower extremity.
--- NOTE | 2024-11-21 13:39 | ECG_ITS ---
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 Measurements Intervals [place] Rate: 73 P: 238 ME: 132 QRS: 107 QRSD: 105 T: -77 QT: 381 QTc: 421 Interpretive Statements ELECTRONIC VENTRICULAR PACEMAKER Compared to ECG 11/21/2024 11:58:03 Left bundle-branch block no longer present Electronically Signed On 11-22-2024 07:43:01 STORE RECEIVING SPECIALIST by Ismael Sue M.D. [email or web address] [id number]
--- NOTE | 2024-11-21 14:53 | P.HP_ITS ---
Providers/Chief Complaint 2 Primary Care Provider: Oliver Dempsey MD Chief Complaint: sob, leg cellulitis History of Present Illness Andrew Ruggiero is a 58 year old male with past medical history of CHF, systolic, ICD in place, denies history of CAD, history of atrial fibrillation on Eliquis, history of [id number] type 2 diabetes mellitus, smoker, hypertension, hyperlipidemia on Entresto, history of abdominal wall hernia, history of chronic diabetic foot ulcers, history of diabetic neuropathy who presents to the hospital for shortness of breath and swelling bilateral lower extremities and worsening leg wounds that are chronic. He is to follow-up with wound care in the past however recently moved here from [place] and has not seen wound care since the beginning of the year. Denies fever, chest pain, abdominal pain, nausea, vomiting, diarrhea. EKG shows paced rhythm. Troponins ordered and pending at this time. Patient was given antibiotics in the ER. Hospitalist has been requested to admit. Medications/Allergies Home Medications ?Medication ?Instructions ?Recorded ?Confirmed ?Last Taken ?Type aspirin 81 mg tablet,delayed 81 mg PO DAILY 05/27/23 0 11/21/24 11/21/24 08:00 History release shower chair #1 ea 05/29/23 11/21/24 Unkn own Rx apixaban 5 mg tablet (Eliquis) 5 mg PO BID #60 tabs 11/21/24 11/21/24 Rx atorvastatin 10 mg tablet (Lipitor) 10 mg PO DAILY #30 tabs 11/18/24 11/21/24 11/21/24 Rx empagliflozin 10 mg tablet 10 mg PO DAILY #30 tabs 11/21/24 11/21/24 Rx (Jardiance) metoprolol succinate 100 mg 50 mg (1/2 x 100 mg) PO BI D #30 11/18/24 11/21/24 11/21/24 Rx tablet,extended release 24 hr tabs potassium chloride 20 mEq 20 meq PO BID #60 tabs 11/1811/21/24 11/21/24 Rx tablet,extended release spironolactone 25 mg tablet 12.5 mg (1/2 x 25 mg) PO D AILY #15 11/18/24 11/21/24 11/21/24 Rx tabs sacubitril 49 mg-valsartan 51 mg 1 tab PO BID 11/21/24 11/21/24 11/21/24 History tablet (Entresto) Allergies Allergy/AdvReac Type Severity Reaction Status Date / Time No Known Allergies Allergy Verified 11/18/24 16:24 PFSH Acute 2 PFSH: Medical History Elevated blood pressure reading with diagnosis of hypertension Alcoholism with alcohol dependence Diabetes type 2, controlled Neuropathy History of non-ST elevation myocardial infarction (NSTEMI) Peripheral vascular disease Atrial fibrillation Hypertension CHF (congestive heart failure) EF 15-20% on 03/30 Surgical History Hx of umbilical hernia repair 07/05/23 lap repair of umbilical hernia with mesh- Dr Obrien History of implantable cardioverter-defibrillator (ICD) placement Family History Mother CAD (coronary artery disease) Social History Smoking and tobacco/nicotine status: never used tobacco/nicotine Alcohol intake: current Alcohol intake frequency: 3 or more drinks per day Alcohol type: beer Substance/Drug Use: former Date of last use: marijuana in 2021 Household members: children Marital status: Single Number of children: 2 Number of grandchildren: 0 Current occupational status: disabled Special duc needs: No Agree to transfusion: Yes Vitals/I&O/Wt Last Vital Signs Temp 97.9 F 11/21/24 12:01 Pulse 85 11/21/24 12:01 Resp 17 11/21/24 12:01 BP 110/65 11/21/24 12:01 Pulse Ox 95 11/21/24 12:01 O2 Del Method Room Air 11/21/24 12:01 Weight last 48 hrs Weight 78.471 kg Physical Exam 2 Narrative: General: Alert oriented x3, patient seen seen laying in bed. No acute distress. HEENT: Normocephalic, atraumatic, EOMI, breathing room air. Cardio: Regular rate rhythm, normal S1-S2, Respiratory: Clear to auscultation bilaterally GI: Abdomen soft, nontender, nondistended, bowel sounds + Extremities: Please see photo admitting ER note. Multiple chronic ulcers present. Data 11/21/24 11:39 11/21/24 11:39 Micro: Microbiology 11/21/24 14:42 Blood Culture - Preliminary Blood SPECIMEN COLLECTED 11/21/24 13:26 Blood Culture - Preliminary Blood SPECIMEN COLLECTED A&P Assessment and plan (1) Hypertension: Qualifiers: Hypertension type: primary hypertension Qualified Code(s): I10 - Essential (primary) hypertension (2) Elevated blood pressure reading with diagnosis of hypertension: (3) CHF (congestive heart failure): (4) Atrial fibrillation: (5) Peripheral vascular disease: (6) Diabetic leg ulcer: (7) Diabetes type 2, controlled: Qualifiers: Diabetes mellitus complication detail: with other circulatory complications Diabetes mellitus complication status: with circulatory complication Diabetes mellitus local intermodal truck driver insulin use: without local intermodal truck driver use Q ualified Code(s): E11.59 - Type 2 diabetes mellitus with other circulatory complications (8) Chronic ulcer of leg: (9) ICD (implantable cardioverter-defibrillator) in place: (10) Peripheral neuropathy: Plan #Chronic diabetic sandoval and foot ulcers #History of ischemic cardiomyopathy, pacemaker in place, atrial fibrillation #Chronic systolic congestive heart failure #Type 2 diabetes mellitus, [id number] #Smoker #Atrial fibrillation #Hypertension #Hyperlipidemia #Diabetic neuropathy ? Check CRP, ESR, CBC CMP daily ? Placed on linezolid and Zosyn ? Consult general surgery for debridement ? Patient currently on Eliquis. will hold ? Continue metoprolol succinate, aspirin, atorvastatin ? Continue Entresto ? Patient will likely need cardiac clearance prior to surgical procedure ? EKG without any acute ischemic changes and shows a paced rhythm at this time ? Check BNP ? Troponins pending from ER ? Check hemoglobin A1c. Last 1 checked September 2023 6.3. ? Urinalysis negative - interrogate ICD Full code DVT prophylaxis: Patient is on Eliquis. PDMP PDMP Reviewed: Not Reviewed Attestations 2 Medical Necessity Statement*: Greater than 2 midnight stay for wound care and IV antibiotics for chronic ulcers. Diagnoses Primary hypertension I10 Hypertension type: primary hypertension Elevated blood pressure reading with diagnosis of hypertension I10 CHF (congestive heart failure) I50.9 Atrial fibrillation I48.91 Peripheral vascular disease I73.9 Diabetic leg ulcer E11.622; L97.909 Controlled type 2 diabetes mellitus with other circulatory complication, without long-term current use of insulin E11.59 Diabetes mellitus complication detail: with other circulatory complications Diabetes mellitus complication status: with circulatory complication Diabetes mellitus assisted insulin use: without assisted use Chronic ulcer of leg L97.909 ICD (implantable cardioverter-defibrillator) in place Z95.810 Peripheral neuropathy G62.9
--- NOTE | 2024-11-21 15:10 | CTR_ITS ---
PROCEDURE INFORMATION: Exam: CT Left Lower Extremity, Leg Exam date and time: 11/21/2024 5:04 PM Age: 58 years old Clinical indication: Pain; Lower leg; Left; Infection; Osteo; Bilateral pad TECHNIQUE: Imaging protocol: CT of the left lower extremity with intravenous contrast was performed. Exam focused on the lower leg. Radiation optimization: All CT scans at this facility use at least one of these dose optimization techniques: automated exposure control; mA and/or kV adjustment per patient size (includes targeted exams where dose is matched to clinical indication); or iterative reconstruction. Contrast material: OMNI 350; Contrast volume: 60 ml; Contrast route: INTRAVENOUS (IV); COMPARISON: [place] [id number] 11/21/2024 2:13 PM RADIATION DOSE METRICS: Total DLP (mGy-cm): 566.8 FINDINGS: Bones/joints: No acute fracture or dislocation. Diffuse periosteal reaction throughout the fibula in through the majority of the lateral aspect of the tibia with areas also seen along the medial aspect of the tibia. Posterior and plantar calcaneal enthesophytes. Soft tissues: Circumferential subcutaneous soft tissue swelling with areas of skin thickening throughout the mid to distal portions of the lower leg as well as the ankle/foot, with soft tissue swelling most pronounced along the dorsum of the foot. Edema extends into the anterior and posterior muscular compartments. No loculated fluid collections. Diffuse muscular atrophy in the lower leg. Venous varicosities throughout the subcutaneous fat of the lower leg. CT/CT lower leg LT w con [id number] IMPRESSION: 1. Diffuse edema throughout the visualized lower extremity with areas of skin thickening. Findings may be due in part to venous stasis, though cellulitis is not excluded. Correlate with clinical findings. No loculated collection to suggest abscess. 2. Diffuse areas of periosteal reaction involving the fibula and portions of the tibia, possibly secondary to chronic osteomyelitis. While there is no definite evidence of acute osteomyelitis, this is difficult to entirely exclude. MRI could be considered for further assessment if warranted. 3. Venous varicosities throughout the lower leg.
--- NOTE | 2024-11-21 15:10 | CTR_ITS ---
PROCEDURE INFORMATION: Exam: CT Right Lower Extremity, Leg Exam date and time: 11/21/2024 5:04 PM Age: 58 years old Clinical indication: Pain; Lower leg; Infection; Osteo; Bilateral pad TECHNIQUE: Imaging protocol: CT of the right lower extremity with intravenous contrast was performed. Exam focused on the lower leg. Radiation optimization: All CT scans at this facility use at least one of these dose optimization techniques: automated exposure control; mA and/or kV adjustment per patient size (includes targeted exams where dose is matched to clinical indication); or iterative reconstruction. Contrast material: [id number]; Contrast volume: 60 ml; Contrast route: INTRAVENOUS (IV); COMPARISON: [place] [id number] 11/21/2024 2:13 PM RADIATION DOSE METRICS: Total DLP (mGy-cm): 565 FINDINGS: Bones/joints: No acute fracture or dislocation. Scattered areas of periosteal thickening/reaction involving the tibia and fibula. Soft tissues: Diffuse subcutaneous soft tissue edema with areas of skin thickening throughout the mid to distal lower leg and extending into the ankle and dorsum of the foot. No loculated fluid collections. Venous varicosities are noted within the superficial soft tissues. Diffuse muscle atrophy within the lower leg as well as areas of edema involving the anterior and posterior muscular compartments. CT/CT lower leg RT w con [id number] IMPRESSION: 1. Diffuse subcutaneous soft tissue edema with areas of skin thickening. Findings may be related to venous stasis, though cellulitis is not excluded. No loculated fluid collections to suggest abscess. 2. Scattered areas of periosteal thickening/reaction along the tibia and fibula could be related to chronic osteomyelitis. Superimposed acute osteomyelitis not entirely excluded. MRI could be considered for further evaluation if warranted.
[2024-11-21 15:11] LABS: C Reactive Protein 58.9 mg/L (0.0-4.9); Creatine Phosphokinase 36 U/L (39-308)
[2024-11-21 15:20] LABS: Troponin(5th) Baseline 18 ng/L (0-15)
[2024-11-21] MEDS: linezolid premix 600 MG/300 ML PREMIX 300 MG IV (15:23)
[2024-11-21 15:38] LABS: Chol HDL Ratio 3.13 mg/dL (1.0-5.00); Cholesterol 72 mg/dL (0-200); HDL Cholesterol 23 mg/dL (60-100); LDL Cholesterol Calculated 31 mg/dL (50-129); Lactic Sepsis W/Reflex 1.4 mmol/L (0.5-2.2); Triglycerides 89 mg/dL (0-150); VLDL Cholestrol Calculation 18 mg/dL (0-30)
--- NOTE | 2024-11-21 15:39 | ECG_ITS ---
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 Measurements Intervals [place] Rate: 80 P: 259 TN: 130 QRS: 113 QRSD: 127 T: -72 QT: 404 QTc: 469 Interpretive Statements ELECTRONIC VENTRICULAR PACEMAKER ABNORMAL RHYTHM ECG Compared to ECG 11/21/2024 13:51:31 No significant changes Electronically Signed On 11-22-2024 08:14:40 SOUND EFFECTS TECHNICIAN by Ismael Sue M.D. [email or web address]
[2024-11-21 15:40] LABS: Estmated Average Glucose 203; Hemoglobin A1C 8.7 % (4.0-6.0)
[2024-11-21 15:42] LABS: Erythrocyte Sedimentation Rate 39 mm/hr (0-10)
[2024-11-21 16:35] LABS: Glucose Point of Care 120 mg/dL (70-110)
[2024-11-21] MEDS: iohexol 350 mg/mL 500 mL Btl (per mL) IV ×2 (17:08→17:09)
[2024-11-21 17:12] LABS: Troponin 5 2HR 12.47 ng/L (0-15)
[2024-11-21 17:14] LABS: Troponin 5 2HR Delta -5.53 ABS# (0-10)
[2024-11-21] MEDS: metoprolol succinate ER (24 HR) 100 mg Tablet 50 MG PO (17:51)
[2024-11-21] MEDS: sacubitril/valsartan 24-26 mg Tablet 2 EACH PO (17:54)
[2024-11-21] MEDS: piperacillin-tazobactam 3.375 GM in sodium chloride 0.9% (plus) 50 ML IV (17:54)
--- NOTE | 2024-11-21 19:20 | PM.CONSULT ---
Providers/Reason For Consult Consulting Physician/Specialty*: Dr. Coronado general surgery Reason for Consult*: Chronic leg wounds Attending Physician: Elena Hernandez MD Primary Care Provider: Oliver Dempsey MD History of Present Illness History of Present Illness Andrew Ruggiero is a 58 year old male chronic bilateral lower extremity wounds and cellulitis. Patient has been seen in wound care last time about a year ago. Patient has a history of heart disease and is on Eliquis. Seen by cardiology for preoperative cardiac risk stratification. Patient is moderate risk for operative intervention. Eliquis was held starting yesterday. Admitted to the hospitalist for management of cellulitis and medical comorbidities. Medications/Allergies Home Medications ?Medication ?Instructions ?Recorded ?Confirmed ?Last Taken ?Type aspirin 81 mg tablet,delayed 81 mg PO DAILY 05/27/23 11/21/24 11/21/24 08:00 History release shower chair #1 ea 05/29/23 11/21/24 Unknown Rx apixaban 5 mg tablet (Eliquis) 5 mg PO BID #60 tabs 11/18/24 11/21/24 11/21/24 Rx atorvastatin 10 mg tablet (Lipitor) 10 mg PO DAILY #30 tabs 11/18/24 11/21/24 11/21/24 Rx empagliflozin 10 mg tablet 10 mg PO DAILY #30 tabs 11/18/24 11/21/24 11/21/24 Rx (Jardiance) metoprolol succinate 100 mg 50 mg (1/2 x 100 mg) PO BID #30 11/18/24 11/21/24 11/21/24 Rx tablet,extended release 24 hr tabs potassium chloride 20 mEq 20 meq PO BID #60 tabs 11/18/24 11/21/24 11/21/24 Rx tablet,extended release spironolactone 25 mg tablet 12.5 mg (1/2 x 25 mg) PO DAILY #15 11/18/24 11/21/24 11/21/24 Rx tabs sacubitril 49 mg-valsartan 51 mg 1 tab PO BID 11/21/24 11/21/24 11/21/24 History tablet (Entresto) Allergies Allergy/AdvReac Type Severity Reaction Status Date / Time No Known Allergies Allergy Verified 11/18/24 16:24 Current Medications Generic Name Dose Route Start Last Admin Trade Name Freq PRN Reason Stop Dose Admin Piperacillin Sod/Tazobactam 50 mls @ 12.5 mls/hr 11/21/24 18:00 11/21/24 17:54 Sod 3.375 gm/ Sodium Chloride IV 12.5 mls/hr Q8H JERRY Administration Insulin Human Lispro 0 unit 11/21/24 18:00 11/21/24 17:20 Insulin Lispro 100 Unit/1 Ml SUBCUT Not Given WM&BEDTIME JERRY Protocol Metoprolol Succinate 50 mg 11/21/24 18:00 11/21/24 17:51 Metoprolol Succinate Er (24 Hr) 100 Mg Tablet PO 50 mg BID JERRY Administration Sacubitril/Valsartan 2 each 11/21/24 18:00 11/21/24 17:54 Sacubitril/Valsartan 24-26 Mg Tablet PO 2 each BID JERRY Administration PFSH Acute PFSH: Medical History Elevated blood pressure reading with diagnosis of hypertension Alcoholism with alcohol dependence Diabetes type 2, controlled Neuropathy History of non-ST elevation myocardial infarction (NSTEMI) Peripheral vascular disease Atrial fibrillation Hypertension CHF (congestive heart failure) EF 15-20% on 03/30 Surgical History Hx of umbilical hernia repair 07/05/23 lap repair of umbilical hernia with mesh- Dr Obrien History of implantable cardioverter-defibrillator (ICD) placement Family History Mother CAD (coronary artery disease) Social History Smoking and tobacco/nicotine status: never used tobacco/nicotine Alcohol intake: current Alcohol intake frequency: 3 or more drinks per day Alcohol type: beer Substance/Drug Use: former Date of last use: marijuana in 2021 Household members: children Marital status: Single Number of children: 2 Number of grandchildren: 0 Current occupational status: disabled Special duc needs: No Agree to transfusion: Yes Vitals/I&O/Wt Last Vital Signs Temp 97.9 F 11/21/24 12:01 Pulse 64 11/21/24 16:59 Resp 19 H 11/21/24 16:30 BP 142/96 11/21/24 16:59 Pulse Ox 96 11/21/24 16:59 O2 Del Method Room Air 11/21/24 17:32 11/21/24 11/21/24 11/21/24 06:59 14:59 22:59 Intake Total 300 / 300 Balance 300 / 300 Weight last 48 hrs Weight 168 lb 7 oz Weight 173 lb Physical Exam Narrative: Chest: Unlabored breathing room air. No lymphadenopathy. Heart: Regular rate and rhythm. Abdomen: Soft, nontender, nondistended. No masses or lymphadenopathy. Bilateral lower extremities: Multiple chronic wounds associated with cellulitis. No fluctuance. No crepitus. Diffuse edema. Data 11/21/24 11:39 11/21/24 11:39 Micro: Microbiology 11/21/24 14:42 Blood Culture - Preliminary Blood SPECIMEN COLLECTED 11/21/24 13:26 Blood Culture - Preliminary Blood SPECIMEN COLLECTED A&P Assessment and plan (1) Cellulitis: (2) Chronic ulcer of leg: Plan 58-year-old male diabetic history of heart disease with an ICD in place. On Eliquis stopped 11/21/24. Surgery consulted for multiple chronic leg wounds bilaterally associated with cellulitis. Admitted to the hospitalist for cardiac risk stratification as well as management of comorbidities. Moderate risk for surgical intervention per cardiology. Will plan for debridement of bilateral lower extremities in the operating room on 11/23/24 to allow 48 hours off Eliquis to minimize risk of bleeding. He will have to follow-up with wound clinic early next week. Discussed with hospitalist. PDMP PDMP Reviewed: Not Reviewed Coding Level of Care Code 85380 Diagnoses Cellulitis L03.90 Chronic ulcer of leg L97.909 Time Spent (min) 30
--- NOTE | 2024-11-21 19:39 | ECG_ITS ---
[facility]21 Pat Name: Andrew Ruggiero Department: Room: 258 Gender: Male Throw Out Clerk: : 1965 Requested By: Carlos Alberto Mcclellan Order Number: [id number] Wilner MD: Ismael Sue M.D. Measurements Intervals [place] Rate: 81 P: 0 CT: 0 QRS: 123 QRSD: 137 T: -61 QT: 402 QTc: 468 Interpretive Statements ELECTRONIC VENTRICULAR PACEMAKER Compared to ECG 11/21/2024 16:09:24 No significant changes Electronically Signed On 11-22-2024 08:12:25 BARREL RIFLER OPERATOR by Ismael Sue M.D. [id number]
[2024-11-21 20:05] LABS: Glucose Point of Care 287 mg/dL (70-110)
[2024-11-21] MEDS: insulin lispro 100 unit/1 mL SUBCUT (21:19)
[2024-11-22] MEDS: linezolid premix 600 MG/300 ML PREMIX 300 MG IV ×2 (02:21→15:40)
[2024-11-22 03:15] VITALS: BP 132/78; PULSE 82; RESP 20; TEMP 36.5; O2SAT 94; BMI 26.4
[2024-11-22] MEDS: piperacillin-tazobactam 3.375 GM in sodium chloride 0.9% (plus) 50 ML IV ×3 (03:30→17:44)
[2024-11-22 06:12] LABS: Glucose Point of Care 117 mg/dL (70-110)
[2024-11-22 08:00] VITALS: BP 115/80; PULSE 66; RESP 17; TEMP 36.4; O2SAT 98
[2024-11-22 08:11] VITALS: PULSE 81; RESP 16; O2SAT 95
[2024-11-22] MEDS: sacubitril/valsartan 24-26 mg Tablet 2 EACH PO ×2 (09:20→17:44)
[2024-11-22] MEDS: atorvastatin 40 mg Tablet 20 MG PO (09:21)
[2024-11-22] MEDS: metoprolol succinate ER (24 HR) 100 mg Tablet 50 MG PO ×2 (09:21→17:44)
[2024-11-22] MEDS: aspirin 81 mg EC Tablet PO (09:22)
--- NOTE | 2024-11-22 11:00 | PC.CHAP ---
Pastoral Care Encounter/Spiritual Assessment Type of Contact [] Declined hearing aid technician visit [] Patient/Family/Request visit [] Outpatient visit [] Follow-up visit [] Physician referral [] Code/Alert [X] Routine visit [] Staff referral [] Actively dying [] Patient sleeping [] Family support [] [] Out of room [] Palliative care [] [] Receiving care in room [] Pre-surgical visit [] Trauma [] Long length of stay [] ICU visit [] Other: Relational/Emotional Strength [X] Patient feels connected with others/family/visitors/staff [] Distress [] Loneliness/isolation [] Abandonment Spirituality of Patient [X] Person of Aspen [] Attends Mormon of their Aspen [X] Believes in Prayer [] Reads Bible or Church materials [] There are Spiritual issues to be addressed Older Adult Social Work Specialist Interventions [x] Prayer [X] Active listening [] Non-anxious presence [] Spiritual/emotional support [] Crisis/trauma care [] Spiritual counseling [] Bereavement support [] Provided bereavement packet [] Provided Bible/devotional materials [] Provided toy/stuffed animal, coloring book to patient or family member [] Provided Communion [] Anointing/[place] [] Salvation [] Completed spiritual assessment [] Other: Impact on Illness or Injury [] Angry [] Fearful [X] Anxious [] Often cries [] Exhaustion [] Unable to work [] Unable to attend anglican [] Unable to walk/stand [] Unable to read [] Unable to drive [] Unable to eat/drink [] Unable to sleep [] Unable to be with family [] Patient intubated [] Other: Summary P +Dr. Time spent with patient 40 Min
--- NOTE | 2024-11-22 11:00 | PM.CONSULT ---
Providers/Reason For Consult Consulting Physician/Specialty*: Medicine/hospitalist Reason for Consult*: Preop cardiac evaluation Requesting Physician: Dr. Hernandez Attending Physician: Elena Hernandez MD Primary Care Provider: Oliver Dempsey MD History of Present Illness History of Present Illness Andrew Ruggiero is a 58 year old male with a known history of severe cardiomyopathy, status post ICD, now admitted with worsening lower extremities infected ulcers. Patient is now requiring surgical debridement of the infected ulcers on both lower extremities. Clinically from cardiac point of view he denies any active complaint. No resting shortness of air or any chest pain. He is overall physical status/ambulatory status is fairly limited primarily because of severe infected wounds on both lower legs. Repeat echo today showed significant improvement of LVEF from 25% to 45 to 50%. No major issues with ICD. Occasional firing of ICD, however no history of repeated ICD firing, palpitation or syncope. No history, symptoms suggestive of active angina. Review of Systems Narrative: Detailed 10 point systemic review unremarkable except for as mentioned above in the history of present illness. Medications/Allergies Home Medications ?Medication ?Instructions ?Recorded ?Confirmed ?Last Taken ?Type aspirin 81 mg tablet,delayed 81 mg PO DAILY 05/27/23 11/21/24 11/21/24 08:00 History release shower chair #1 ea 05/29/23 11/21/24 Unknown Rx apixaban 5 mg tablet (Eliquis) 5 mg PO BID #60 tabs 11/18/24 11/21/24 11/21/24 Rx atorvastatin 10 mg tablet (Lipitor) 10 mg PO DAILY #30 tabs 11/18/24 11/21/24 11/21/24 Rx empagliflozin 10 mg tablet 10 mg PO DAILY #30 tabs 11/18/24 11/21/24 11/21/24 Rx (Jardiance) metoprolol succinate 100 mg 50 mg (1/2 x 100 mg) PO BID #30 11/18/24 11/21/24 11/21/24 Rx tablet,extended release 24 hr tabs potassium chloride 20 mEq 20 meq PO BID #60 tabs 11/18/24 11/21/24 11/21/24 Rx tablet,extended release spironolactone 25 mg tablet 12.5 mg (1/2 x 25 mg) PO DAILY #15 11/18/24 11/21/24 11/21/24 Rx tabs sacubitril 49 mg-valsartan 51 mg 1 tab PO BID 11/21/24 11/21/24 11/21/24 History tablet (Entresto) Allergies Allergy/AdvReac Type Severity Reaction Status Date / Time No Known Allergies Allergy Verified 11/18/24 16:24 Current Medications Generic Name Dose Route Start Last Admin Trade Name Naborq PRN Reason Stop Dose Admin Aspirin 81 mg 11/22/24 09:00 11/22/24 09:22 Aspirin 81 Mg Ec Tablet PO 81 mg DAILY JERRY Administration Atorvastatin Calcium 20 mg 11/22/24 09:00 11/22/24 09:21 Atorvastatin 40 Mg Tablet PO 20 mg DAILY JERRY Administration Piperacillin Sod/Tazobactam 50 mls @ 12.5 mls/hr 11/21/24 18:00 11/22/24 07:33 Sod 3.375 gm/ Sodium Chloride IV Infused Q8H JERRY Infusion Linezolid 600 mg in 300 mls @ 300 mls/hr 11/22/24 03:00 11/22/24 03:23 Zyvox Premix IV Infused Q12H JERRY Infusion Protocol Insulin Human Lispro 0 unit 11/21/24 18:00 11/22/24 07:30 Insulin Lispro 100 Unit/1 Ml SUBCUT Not Given WM&BEDTIME JERRY Protocol Metoprolol Succinate 50 mg 11/21/24 18:00 11/22/24 09:21 Metoprolol Succinate Er (24 Hr) 100 Mg Tablet PO 50 mg BID JERRY Administration Sacubitril/Valsartan 2 each 11/21/24 18:00 11/22/24 09:20 Sacubitril/Valsartan 24-26 Mg Tablet PO 2 each BID JERRY Administration PFSH Acute PFSH: Medical History Elevated blood pressure reading with diagnosis of hypertension Alcoholism with alcohol dependence Diabetes type 2, controlled Neuropathy History of non-ST elevation myocardial infarction (NSTEMI) Peripheral vascular disease Atrial fibrillation Hypertension CHF (congestive heart failure) EF 15-20% on 03/30 Surgical History Hx of umbilical hernia repair 07/05/23 lap repair of umbilical hernia with mesh- Dr Obrien History of implantable cardioverter-defibrillator (ICD) placement Family History Mother CAD (coronary artery disease) Social History Smoking and tobacco/nicotine status: never used tobacco/nicotine Alcohol intake: current Alcohol intake frequency: 3 or more drinks per day Alcohol type: beer Substance/Drug Use: former Date of last use: marijuana in 2021 Household members: children Marital status: Single Number of children: 2 Number of grandchildren: 0 Current occupational status: disabled Special duc needs: No Agree to transfusion: Yes Vitals/I&O/Wt Last Vital Signs Temp 97.6 F 11/22/24 08:00 Pulse 81 11/22/24 08:11 Resp 16 11/22/24 08:11 BP 115/80 11/22/24 08:00 Pulse Ox 95 11/22/24 08:11 O2 Del Method Room Air 11/22/24 08:11 11/21/24 11/22/24 11/22/24 22:59 06:59 14:59 Intake Total 350 / 350 300 / 650 50 / 50 Output Total 680 / 680 300 / 980 Balance -330 / -330 0 / -330 50 / 50 Weight last 48 hrs Weight 168 lb 14.4 oz Weight 168 lb 7 oz Weight 173 lb Physical Exam Narrative: Patient laying comfortably on his bed. Resting comfortably. No respiratory distress. Const: OTHER: Normal HENMT: OTHER: Normal Eye: OTHER: Normal Resp: OTHER: Good air entry bilaterally. No added sounds. Cardio: OTHER: Normal first and second heart sounds. No murmur. GI: OTHER: Soft nontender abdomen. Bowel sounds audible. Extremity: OTHER: Both lower extremities below the knee are swollen with severe infected ulcers bilaterally. Neuro: OTHER: Grossly intact Skin: OTHER: Warm and dry. Data 11/21/24 11:39 11/21/24 11:39 Micro: Microbiology 11/21/24 14:42 Blood Culture - Preliminary Blood SPECIMEN COLLECTED 11/21/24 13:26 Blood Culture - Preliminary Blood SPECIMEN COLLECTED A&P Assessment and plan (1) CHF (congestive heart failure): (2) Cellulitis: (3) ICD (implantable cardioverter-defibrillator) in place: (4) Chronic ulcer of leg: Plan 58-year-old male patient with known history of severe cardiomyopathy in the past, now here for worsening bilateral lower extremity ulcers, infected. From cardiac standpoint of view patient is very much stable. In fact his LV function have improved significantly with the treatment over the years. Currently he is almost euvolemic. No active angina or heart failure symptoms. LVEF has improved to 45 to 50%. Overall he is at moderate perioperative cardiac risk risk for debridement surgery of both lower extremities. I reviewed his current medication, he is on appropriate medicines and I recommend to continue same. PDMP PDMP Reviewed: Not Reviewed Coding Level of Care Code 63165 Diagnoses CHF (congestive heart failure) I50.9 Cellulitis L03.90 ICD (implantable cardioverter-defibrillator) in place Z95.810 Chronic ulcer of leg L97.909 Time Spent (min) 25
[2024-11-22 11:20] LABS: Glucose Point of Care 99 mg/dL (70-110)
--- NOTE | 2024-11-22 11:32 | P.PN_ITS ---
Subjective 2 Subjective: Bilateral lower extremity wounds with cellulitis Off apixaban for 24-hour Vitals/I&O/Wt Last Vital Signs Temp 97.6 F 11/22/24 08:00 Pulse 81 11/22/24 08:11 Resp 16 11/22/24 08:11 BP 115/80 11/22/24 08:00 Pulse Ox 95 11/22/24 08:11 O2 Del Method Room Air 11/22/24 08:11 11/21/24 11/22/24 11/22/24 22:59 06:59 14:59 Intake Total 350 / 350 300 / 650 50 / 50 Output Total 680 / 680 300 / 980 Balance -330 / -330 0 / -330 50 / 50 Weight last 48 hrs Weight 168 lb 14.4 oz Weight 168 lb 7 oz Weight 173 lb Physical Exam 2 Narrative: Chest: Unlabored breathing room air. No lymphadenopathy. Heart: Regular rate and rhythm. Abdomen: Soft, nontender, nondistended. No masses or lymphadenopathy. Bilateral lower extremities: Chronic wounds with associated cellulitis Data 11/21/24 11:39 11/21/24 11:39 Micro: Microbiology 11/21/24 14:42 Blood Culture - Preliminary Blood SPECIMEN COLLECTED 11/21/24 13:26 Blood Culture - Preliminary Blood SPECIMEN COLLECTED A&P Assessment and plan (1) Chronic ulcer of leg: (2) Cellulitis: Plan 58-year-old male who presented with chronic leg wounds associated with cellulitis. Will plan for or debridement on 11/23/24 to allow for 48 hours off Eliquis. Discussed with hospitalist. Instructed nurse to paint wounds with Betadine. PDMP PDMP Reviewed: Not Reviewed Attestations 2 Medical Necessity Statement*: N/A Coding Level of Care Code 26000 Diagnoses Chronic ulcer of leg L97.909 Cellulitis L03.90 Time Spent (min) 30
[2024-11-22 11:53] VITALS: BP 110/70; PULSE 65; TEMP 36.7; O2SAT 97
--- NOTE | 2024-11-22 13:10 | PM.PN ---
Subjective Subjective: seen today eliquis on hold awaiting cardiac clearance denies CP Vitals/I&O/Wt Last Vital Signs Temp 98.0 F 11/22/24 11:53 Pulse 65 11/22/24 11:53 Resp 16 11/22/24 08:11 BP 110/70 11/22/24 11:53 Pulse Ox 97 11/22/24 11:53 O2 Del Method Room Air 11/22/24 11:53 11/21/24 11/22/24 11/22/24 22:59 06:59 14:59 Intake Total 350 / 350 300 / 650 50 / 50 Output Total 680 / 680 300 / 980 Balance -330 / -330 0 / -330 50 / 50 Weight last 48 hrs Weight 76.612 kg Weight 76.402 kg Weight 78.471 kg Physical Exam Narrative: General: Alert oriented x3, patient seen seen laying in bed. No acute distress. HEENT: Normocephalic, atraumatic, EOMI, breathing room air. Cardio: Regular rate rhythm, normal S1-S2, Respiratory: Clear to auscultation bilaterally GI: Abdomen soft, nontender, nondistended, bowel sounds + Extremities: Please see photo admitting ER note. Multiple chronic ulcers present. Data 11/21/24 11:39 11/21/24 11:39 Micro: Microbiology 11/21/24 14:42 Blood Culture - Preliminary Blood SPECIMEN COLLECTED 11/21/24 13:26 Blood Culture - Preliminary Blood SPECIMEN COLLECTED A&P Assessment and plan (1) Hypertension: Qualifiers: Hypertension type: primary hypertension Qualified Code(s): I10 - Essential (primary) hypertension (2) Elevated blood pressure reading with diagnosis of hypertension: (3) CHF (congestive heart failure): (4) Atrial fibrillation: (5) Peripheral vascular disease: (6) Diabetic leg ulcer: (7) Diabetes type 2, controlled: Qualifiers: Diabetes mellitus watermelon inspector insulin use: without halfway use Diabetes mellitus complication status: with circulatory complication Diabetes mellitus complication detail: with other circulatory complications Qualified Code(s): E11.59 - Type 2 diabetes mellitus with other circulatory complications (8) Chronic ulcer of leg: (9) ICD (implantable cardioverter-defibrillator) in place: (10) Peripheral neuropathy: Plan #Chronic diabetic sandoval and foot ulcers #History of ischemic cardiomyopathy, pacemaker in place, atrial fibrillation #Chronic systolic congestive heart failure #Type 2 diabetes mellitus, [id number] #Smoker #Atrial fibrillation #Hypertension #Hyperlipidemia #Diabetic neuropathy ? Check CRP, ESR, CBC CMP daily ? Placed on linezolid and Zosyn ? Consult general surgery for debridement ? Patient currently on Eliquis. will hold ? Continue metoprolol succinate, aspirin, atorvastatin ? Continue Entresto ? Patient will likely need cardiac clearance prior to surgical procedure ? EKG without any acute ischemic changes and shows a paced rhythm at this time ? Check BNP ? Troponins pending from ER ? Check hemoglobin A1c. Last 1 checked September 2023 6.3. ? Urinalysis negative - interrogate ICD Full code DVT prophylaxis: Patient is on Eliquis. 11/22/2024 hold eliquis patient already took his eliqus dose on 11/21, he was covered for DVT ppx I will continue to hold DVT PPX dose today as well since last dose was yesterday plan for surgical debridement in AM cardio clearance pending echo shows improved EF PDMP PDMP Reviewed: Not Reviewed Attestations Medical Necessity Statement*: Greater than 2 midnight stay for wound care and IV antibiotics for chronic ulcers. Diagnoses Primary hypertension I10 Hypertension type: primary hypertension Elevated blood pressure reading with diagnosis of hypertension I10 CHF (congestive heart failure) I50.9 Atrial fibrillation I48.91 Peripheral vascular disease I73.9 Diabetic leg ulcer E11.622; L97.909 Controlled type 2 diabetes mellitus with other circulatory complication, without long-term current use of insulin E11.59 Diabetes mellitus watermelon inspector insulin use: without watermelon inspector use Diabetes mellitus complication status: with circulatory complication Diabetes mellitus complication detail: with other circulatory complications Chronic ulcer of leg L97.909 ICD (implantable cardioverter-defibrillator) in place Z95.810 Peripheral neuropathy G62.9
[2024-11-22 16:00] VITALS: BP 112/73; PULSE 64; TEMP 36.4; O2SAT 98
[2024-11-22 16:37] LABS: Glucose Point of Care 180 mg/dL (70-110)
--- NOTE | 2024-11-22 17:32 | USCV_ITS ---
Andrew Ruggiero Age: 58 Gender: M : 1965 Exam Date: 11/22/2024 07:18 Ordering Phys: Elena Hernandez MD Technologist: Frnaklyn Talbert Exam Location: [facility] [place] Indication: cardiac clearance BP: 132 / 78 HR: 68 Rhythm: Sinus Technical Quality: Adequate MEASUREMENTS (Male / Female) Normal Values 2D ECHO LV Diastolic Diameter PLAX 4.8 cm 4.2 - 5.9 / 3.9 - 5.3 cm IVS Diastolic Thickness 1.3 cm 0.6 - 1.0 / 0.6 - 0.9 cm IVS Systolic Thickness 1.3 cm LVPW Diastolic Thickness 1.8 cm 0.6 - 1.0 / 0.6 - 0.9 cm LVPW Systolic Thickness 2.3 cm LVOT Diameter 2.0 cm LV Ejection Fraction 2D Teich 45.8 % LV Ejection Fraction MOD 4C 53.1 % LV Ejection Fraction MOD 2C 51.1 % LV Ejection Fraction 2C AL 54.3 % LA Diameter 4.4 cm RA Systolic Volume 4C AL 61.0 ml RA Systolic Volume 4C MOD 46.9 ml LA Sys Volume AL 46.1 cm cubed LA Sys Volume Index AL 24.1 cm cubed/m squared Aorta at Sinotubular Diameter 2.5 cm IVC Diameter 1.8 cm M-MODE LA Ao Ratio MM 1.8 AV Cusp Separation MM 1.7 cm DOPPLER AV Peak Velocity 154.3 cm/s LVOT Peak Velocity 119.0 cm/s AV Area Cont Eq vti 2.0 cm squared AV Area Cont Eq pk 2.4 cm squared MV Peak Velocity 74.0 cm/s MV Area PHT 2.6 cm squared Mitral E to A Ratio 0.8 TR Peak Velocity 218.0 cm/s TR Peak Gradient 19.0 mmHg TR Mean Velocity 174.0 cm/s TR Mean Gradient 13.4 mmHg TR Velocity Time Integral 67.3 cm PV Peak Velocity 75.0 cm/s RV Ejection Time 0.3 s FINDINGS Left Ventricle Mild concentric left ventricular hypertrophy. Mild global hypokinesis. LVEF estimated at 45-50%. Right Ventricle Normal right ventricular size and systolic function. Right Atrium Normal right atrial size. Left Atrium Dilated left atrium. Mitral Valve Structurally normal mitral valve. Mild mitral valve regurgitation. Aortic Valve Structurally normal trileaflet aortic valve. No aortic valve stenosis. Tricuspid Valve Structurally normal tricuspid valve. Trace tricuspid valve regurgitation. Estimated TVPG 20 mmHg. Pulmonic Valve Structurally normal pulmonic valve. Trace pulmonary valve regurgitation. Pericardium No pericardial effusion. Aorta Normal size aortic root and proximal ascending aorta. IVC Normal inferior vena cava. CONCLUSIONS Mild concentric LVH. Mild global hypokinesis, estimated LVEF 45 to 50%. Mildly dilated left atrium with mild mitral regurgitation. Normal RV size and RV systolic function. Normal right heart and pulmonary pressures. Compared to last echo on February 2023, LVEF has now significantly improved. Dina Aldrich MD (Electronically Signed) Final Date: 22 November 2024 09:36 S
[2024-11-22] MEDS: insulin lispro 100 unit/1 mL SUBCUT ×2 (17:44→21:53)
[2024-11-22 20:00] VITALS: BP 100/66; PULSE 71; RESP 18; TEMP 36.6; O2SAT 97
[2024-11-22 21:11] LABS: Glucose Point of Care 237 mg/dL (70-110)
[2024-11-23] VITALS (18 sets, daily range): BP systolic 95–139; BP diastolic 57–85; PULSE 60–79; RESP 16–18; TEMP 36.4–36.8; O2SAT 92–100
[2024-11-23] MEDS: piperacillin-tazobactam 3.375 GM in sodium chloride 0.9% (plus) 50 ML IV ×2 (01:44→18:27)
[2024-11-23] MEDS: linezolid premix 600 MG/300 ML PREMIX 300 MG IV (03:50)
[2024-11-23 07:24] LABS: Glucose Point of Care 120 mg/dL (70-110)
[2024-11-23] MEDS: aspirin 81 mg EC Tablet PO (08:55)
[2024-11-23] MEDS: atorvastatin 40 mg Tablet 20 MG PO (08:55)
[2024-11-23] MEDS: metoprolol succinate ER (24 HR) 100 mg Tablet 50 MG PO ×2 (08:55→18:26)
[2024-11-23] MEDS: sacubitril/valsartan 24-26 mg Tablet 2 EACH PO ×2 (08:55→18:26)
--- NOTE | 2024-11-23 09:20 | ANES.PREANE2 ---
Pre-Anesthetic Assessment Height/Weight: Height 5 ft 7 in Weight 170 lb 9.6 oz Temp Pulse Resp BP Pulse Ox O2 Del Method 98.2 F 66 16 103/61 96 Room Air 11/23/24 07:36 11/23/24 08:14 11/23/24 08:14 11/23/24 07:36 11/23/24 08:14 11/23/24 08:14 Preop Diagnosis: Lower extremity ulcers Operation Date: 11/23/24 10:10 Proposed Procedures p Debridement(Bilateral) - Rito Coronado MD Was Beta Herman taken within 24 hours: Yes Was Clonidine taken within 24 hours: N/A Social Alcohol and Tobacco Exam alert, oriented x 3, clear to auscultation bilaterally and regular rate & rhythm Airway Submandibular: within normal limits Cervical ROM: within normal limits Mallampati: Class II Comments: Comments: Edentulous Anesthetic Plan ASA status: 4 Anesthesia: General Other: Patient initially admitted on 11/21/2024 for cellulitis and lower extremity ulcers. No prior issues with anesthesia NPO since yesterday History of alcoholism, 3 more beers daily Hypertension on metoprolol, sacubitril?valsartan and spironolactone Patient is on chronic Eliquis, active DVTs in lower extremities History of A-fib, EKG shows paced rhythm CAD with ICD in place. Most recent echo showing EF 45% which is improved from previous echo last year Insulin-dependent diabetes Plan for general anesthesia Medications/Allergies Home Medications ?Medication ?Instructions ?Recorded ?Confirmed ?Last Taken ?Type aspirin 81 mg tablet,delayed 81 mg PO DAILY 05/27/23 11/21/24 11/21/24 08:00 History release shower chair #1 ea 05/29/23 11/21/24 Unknown Rx apixaban 5 mg tablet (Eliquis) 5 mg PO BID #60 tabs 11/18/24 11/21/24 11/21/24 Rx atorvastatin 10 mg tablet (Lipitor) 10 mg PO DAILY #30 tabs 11/18/24 11/21/24 11/21/24 Rx empagliflozin 10 mg tablet 10 mg PO DAILY #30 tabs 11/18/24 11/21/24 11/21/24 Rx (Jardiance) metoprolol succinate 100 mg 50 mg (1/2 x 100 mg) PO BID #30 11/18/24 11/21/24 11/21/24 Rx tablet,extended release 24 hr tabs potassium chloride 20 mEq 20 meq PO BID #60 tabs 11/18/24 11/21/24 11/21/24 Rx tablet,extended release spironolactone 25 mg tablet 12.5 mg (1/2 x 25 mg) PO DAILY #15 11/18/24 11/21/24 11/21/24 Rx tabs sacubitril 49 mg-valsartan 51 mg 1 tab PO BID 11/21/24 11/21/24 11/21/24 History tablet (Entresto) Allergies Allergy/AdvReac Type Severity Reaction Status Date / Time No Known Allergies Allergy Verified 11/18/24 16:24 Current Medications Generic Name Dose Route Start Last Admin Trade Name Freq PRN Reason Stop Dose Admin Aspirin 81 mg 11/22/24 09:00 11/23/24 08:55 Aspirin 81 Mg Ec Tablet PO 81 mg DAILY JERRY Administration Atorvastatin Calcium 20 mg 11/22/24 09:00 11/23/24 08:55 Atorvastatin 40 Mg Tablet PO 20 mg DAILY JERRY Administration Piperacillin Sod/Tazobactam 50 mls @ 12.5 mls/hr 11/21/24 18:00 11/23/24 06:05 Sod 3.375 gm/ Sodium Chloride IV Infused Q8H JERRY Infusion Linezolid 600 mg in 300 mls @ 300 mls/hr 11/22/24 03:00 11/23/24 06:05 Zyvox Premix IV Infused Q12H JERRY Infusion Protocol Insulin Human Lispro 0 unit 11/21/24 18:00 11/23/24 08:56 Insulin Lispro 100 Unit/1 Ml SUBCUT Not Given WM&BEDTIME JERRY Protocol Metoprolol Succinate 50 mg 11/21/24 18:00 11/23/24 08:55 Metoprolol Succinate Er (24 Hr) 100 Mg Tablet PO 50 mg BID JERRY Administration Sacubitril/Valsartan 2 each 11/21/24 18:00 11/23/24 08:55 Sacubitril/Valsartan 24-26 Mg Tablet PO 2 each BID JERRY Administration PFSH Anesthesia Medical History Elevated blood pressure reading with diagnosis of hypertension Alcoholism with alcohol dependence Diabetes type 2, controlled Neuropathy History of non-ST elevation myocardial infarction (NSTEMI) Peripheral vascular disease Atrial fibrillation Hypertension CHF (congestive heart failure) EF 15-20% on 03/30 Surgical History Hx of umbilical hernia repair 07/05/23 lap repair of umbilical hernia with mesh- Dr Obrien History of implantable cardioverter-defibrillator (ICD) placement Family History Mother CAD (coronary artery disease) Social History Smoking and tobacco/nicotine status: never used tobacco/nicotine Alcohol intake: current Alcohol intake frequency: 3 or more drinks per day Alcohol type: beer Substance/Drug Use: former Date of last use: marijuana in 2021 Household members: children Marital status: Single Number of children: 2 Number of grandchildren: 0 Current occupational status: disabled Special duc needs: No Agree to transfusion: Yes Data Anesthesia 11/21/24 11:39 11/21/24 11:39 Short CBC 11/21/24 Range/Units 11:39 WBC 7.89 (3.29-11.43) 10^3/uL Hgb 12.60 (11.27-16.99) g/dL Hct 39.3 (37-53) % MCV 80.4 L (82-101) fl Plt Count 223 (157-399) 10^3/cmm Neut % (Auto) 70.2 % Neut # (Auto) 5.54 (1.8-7.7) 10^3/uL BMP 11/21/24 11:39 Sodium 135 L Potassium 4.1 Chloride 102 Carbon Dioxide 20 L BUN 6 Creatinine 1.0 Glucose 316 H Calcium 9.0 Cardiac Enzymes 11/21/24 11/21/24 Range/Units 14:42 16:43 Creatine Kinase 36 L (39-308) U/L Troponin T Baseline 18 H (0-15) ng/L Troponin T 120 Minute 12.47 (0-15) ng/L Delta Troponin T -5.53 L (0-10) ABS# Liver Function 11/21/24 Range/Units 11:39 Total Bilirubin 0.5 (0.15-1.2) mg/dL AST 13 (0-40) U/L ALT 8 (0-41) U/L Alkaline Phosphatase 84 (40-130) U/L Albumin 3.3 L (3.5-5.2) g/dL Urine 11/21/24 Range/Units 12:13 Urine Color Yellow (Yellow) Urine Appearance Clear (CLEAR) Urine pH 6.0 (5-7) Ur Specific Beyer 1.035 H (1.005-1.030) Urine Protein Negative (Negative) Urine Glucose (UA) 3+ H (Normal) Urine Ketones Negative (Negative) Urine Nitrate Negative (Negative) Urine Bilirubin Negative (Negative) Ur Leukocyte Esterase Negative (Negative) Coags 11/21/24 11/21/24 11:39 14:42 ESR 39 H C-Reactive Protein 58.9 H Microbiology 11/21/24 14:42 Blood Culture - Preliminary Blood NEGATIVE TO DATE 11/21/24 13:26 Blood Culture - Preliminary Blood NEGATIVE TO DATE Cardiac Studies: Echocardiogram 11/22/24 Sestamibi Stress Test (Cardiology) 03/05/23
--- NOTE | 2024-11-23 10:09 | P.PN_ITS ---
Subjective 2 Subjective: Eliquis held 48hrs No changes clinically Vitals/I&O/Wt Last Vital Signs Temp 98.2 F 11/23/24 07:36 Pulse 66 11/23/24 08:14 Resp 16 11/23/24 08:14 BP 103/61 11/23/24 07:36 Pulse Ox 96 11/23/24 08:14 O2 Del Method Room Air 11/23/24 08:14 11/22/24 11/23/24 11/23/24 22:59 06:59 14:59 Intake Total 640 / 1170 350.00 / 1520.00 Output Total 200 / 200 400 / 600 200 / 200 Balance 440 / 970 -50.00 / 920.00 -200 / -200 Weight last 48 hrs Weight 170 lb 9.6 oz Weight 168 lb 14.4 oz Weight 168 lb 7 oz Weight 173 lb Physical Exam 2 Narrative: RRR Unlabored breathing RA Bilateral lower extremity wounds, cellulitis Data 11/21/24 11:39 11/21/24 11:39 Micro: Microbiology 11/21/24 14:42 Blood Culture - Preliminary Blood NEGATIVE TO DATE 11/21/24 13:26 Blood Culture - Preliminary Blood NEGATIVE TO DATE A&P Assessment and plan (1) Chronic ulcer of leg: Plan 58yo male with bilateral lower extemity wounds that are chronic. Discussed risks and benefits and patient agrees to proceed with debridement of bilateral lower extremity wounds. PDMP PDMP Reviewed: Not Reviewed Attestations 2 Medical Necessity Statement*: NA Coding Level of Care Code 48849 Diagnoses Chronic ulcer of leg L97.909 Time Spent (min) 30
--- NOTE | 2024-11-23 12:07 | P.OP_ITS ---
Operative Report Date of procedure: November 23, 2024 Pre-op diagnosis: Chronic open wounds bilateral lower extremities Post-op diagnosis: same Post-op findings: Debrided a total of 160 cm? of devitalized tissue down to dermis. Procedure done: Bilateral lower extremity debridement Implants: N/A Specimens removed/disposition: N/A Pathology: none sent Surgeon: Rito Coronado MD Kosher Dietary Service Manager: N/A Anesthesia: MAC Estimated blood loss (mL): 20 Complications: N/A Findings: Debrided a total of 160 cm? of devitalized tissue down to dermis. Healthy bleeding tissue at wound base. Condition: stable Disposition: floor Brief History: 58-year-old male who presented with cellulitis and bilateral lower extremity chronic wounds that are open. Discussed risk and benefits and patient agrees to proceed with debridement of bilateral lower extremities. Procedure: After obtaining consent patient was taken to the operating room. Preoperative Zosyn was administered. Procedure done under MAC. Dressings were taken down and bilateral lower extremities was prepped and draped in the usual sterile using Betadine. A 10 blade was used to debride open wounds on bilateral lower extremities. Devitalized tissue was removed and a healthy wound base evidenced by bleeding was obtained on bilateral lower extremities. Debridement is performed down to dermis. On the left lower extremity a total area of 100 cm? was debrided down to dermis. On the right lower extremity a total area of 60 cm? was debrided down to dermis. Hemostasis was achieved with pressure. Santyl was applied to the open wounds. Bilateral lower extremities were wrapped using Kerlix and an Jermaine wrap up to the knee. The patient woke up from anesthesia without any complications and was transferred to PACU.
[2024-11-23] MEDS: collagenase oint 30 gm 1 APPLIC TOPICAL (12:10)
--- NOTE | 2024-11-23 12:14 | PM.MISC ---
Miscellaneous Note Note: Bilateral lower extremities debrided. Santyl applied and lower extremities wrapped with Kerlix and Jermaine wrap. Plan is to take down dressings tomorrow morning and apply Santyl daily. If patient is discharged today nurse can instruct patient's daughter to help with dressings takedown. If patient stays overnight I will take down dressings in the morning. Patient should follow-up with wound care this week.
--- NOTE | 2024-11-23 12:44 | ANE.PACU2 ---
Inpatient post-anesthesia follow up: Airway intact: Yes Vital signs: Temperature 97.5 F Pulse Rate 68 Respiratory Rate 20 Blood Pressure 93/57 Pulse Oximetry 95 Oxygen Delivery Me thod Room Air Oxygen Flow Rate 10 Fraction of Inspir ed Oxygen Hydration adequate: Yes Nausea and vomiting: No Pain level: 1 Mental status: Baseline
[2024-11-23 16:31] LABS: Glucose Point of Care 231 mg/dL (70-110)
--- NOTE | 2024-11-23 16:36 | PC.NURSE ---
Dr. Hernandez gave verbal order to restart diet. Cardiac Consistent Carb was entered for patient.
[2024-11-23] MEDS: insulin lispro 100 unit/1 mL SUBCUT ×2 (18:28→21:01)
[2024-11-23 20:44] LABS: Glucose Point of Care 267 mg/dL (70-110)
[2024-11-24] VITALS: BP 93/54; PULSE 67; RESP 16; TEMP 36.6; O2SAT 92
[2024-11-24] MEDS: linezolid premix 600 MG/300 ML PREMIX 300 MG IV (02:02)
[2024-11-24] MEDS: piperacillin-tazobactam 3.375 GM in sodium chloride 0.9% (plus) 50 ML IV ×2 (03:18→09:01)
[2024-11-24 04:00] VITALS: BP 105/65; PULSE 60; RESP 17; TEMP 36.6; O2SAT 94
[2024-11-24 06:00] VITALS: BMI 26.5
[2024-11-24 06:24] LABS: Glucose Point of Care 186 mg/dL (70-110)
[2024-11-24 06:48] LABS: Basophils % 0.4 %; Eosinophils % 0.5 %; Hematocrit 41.7 % (37-53); Lymphocytes # 1.9 10^3/uL (0.8-4.8); Lymphocytes % 23.7 %; Mean Corpuscular HGB Conc 31.4 g/dL (30-55); Mean Corpuscular Hemoglobin 25.6 pg (27-33); Mean Corpuscular Volume 81.4 fl (82-101); Mean Platelet Volume 10.1 fL (7.4-10.4); Monocytes # 0.5 10^3/uL (0.2-0.9); Monocytes % 6.3 %; Neutrophils # 5.48 10^3/uL (1.8-7.7); Neutrophils % 68.7 %; Nucleated Red Blood Cells % 0 %; Platelet Count 271 10^3/cmm (157-399); Red Blood Count 5.12 10^6/uL (3.85-5.65); White Blood Count 7.97 10^3/uL (3.29-11.43)
[2024-11-24 07:04] LABS: Anion Gap 14.4 (5-19); Blood Urea Nitrogen 11 mg/dL (6-20); Calcium 8.7 mg/dL (8.5-10.5); Carbon Dioxide 20 mmol/L (22-29); Chloride 103 mmol/L (98-107); Creatinine Clr Calc Pharmacy 115.9029; Glomerular Filtration Rate 116.2 mL/min (90-130); Glucose 180 mg/dL (65-115); Magnesium 2.1 mg/dL (1.7-2.3); Osmolality Calculated 280 mOsm/kg (285-295); Potassium 4.4 mmol/L (3.5-5.1); Sodium 133 mmol/L (136-145)
[2024-11-24 07:34] VITALS: BP 120/69; PULSE 65; RESP 20; TEMP 36.5; O2SAT 99
[2024-11-24] MEDS: aspirin 81 mg EC Tablet PO (08:58)
[2024-11-24] MEDS: sacubitril/valsartan 24-26 mg Tablet 2 EACH PO (08:58)
[2024-11-24] MEDS: insulin lispro 100 unit/1 mL SUBCUT ×2 (08:58→11:25)
[2024-11-24] MEDS: metoprolol succinate ER (24 HR) 100 mg Tablet 50 MG PO (08:58)
[2024-11-24] MEDS: atorvastatin 40 mg Tablet 20 MG PO (08:58)
[2024-11-24] MEDS: apixaban 5 mg Tablet PO ×2 (08:58→09:01)
--- NOTE | 2024-11-24 11:12 | P.PN_ITS ---
Subjective 2 Subjective: Dressings taken down Healthy wound base Santyl applied and wrapped legs Vitals/I&O/Wt Last Vital Signs Temp 97.7 F 11/24/24 07:34 Pulse 65 11/24/24 07:34 Resp 20 H 11/24/24 07:34 BP 120/69 11/24/24 07:34 Pulse Ox 99 11/24/24 07:34 O2 Del Method Room Air 11/24/24 07:34 O2 Flow Rate 10 11/23/24 12:31 11/23/24 11/24/24 11/24/24 22:59 06:59 14:59 Intake Total 530 / 530 300 / 830 290 / 290 Output Total 975 / 1180 965 / 2145 275 / 275 Balance -445 / -650 -665 / -1315 15 / 15 Weight last 48 hrs Weight 169 lb 5 oz Weight 170 lb 9.6 oz Physical Exam 2 Narrative: Chest: Unlabored breathing room air. No lymphadenopathy. Heart: Regular rate and rhythm. Abdomen: Soft, nontender, nondistended. No masses or lymphadenopathy. Bilateral lower extremities: Healthy wound base. Applied Santyl. Data 11/24/24 06:09 11/24/24 06:09 A&P Assessment and plan (1) Chronic ulcer of leg: Plan 58-year-old male who presented with chronic leg wounds. Status post debridement. Took down dressings and wounds have a healthy base. Applied Santyl and wrapped legs. Cleared for discharge. Patient should follow-up this week with wound care. Apply Santyl daily and wrapp with Kerlix and Jermaine wrap. PDMP PDMP Reviewed: Not Reviewed Attestations 2 Medical Necessity Statement*: N/A Coding Level of Care Code 70057 Diagnoses Chronic ulcer of leg L97.909 Time Spent (min) 30
[2024-11-24 11:25] LABS: Glucose Point of Care 312 mg/dL (70-110)
[2024-11-24 11:47] VITALS: BP 93/57; PULSE 68; RESP 20; TEMP 36.4; O2SAT 95
--- NOTE | 2024-11-24 15:00 | PC.NURSE ---
Patient's insurance which is medicaid refuses to pay for Santyl which was ordered by the surgeon. Instructed patient to finish the tube that we are sending home with him and then after it is gone he should do wet to dry dressing changes daily. Wet 4x4's covered with ABD pads and wrapped with Kerlex. Patient verbalized understanding.
[2024-11-24 16:10] VITALS: BP 93/57; PULSE 68; RESP 16; TEMP 36.4; O2SAT 95
--- NOTE | 2024-11-24 16:55 | PM.DCS ---
Discharge Providers Date of Admission: 11/21/24 15:51 Date of Discharge: November 24, 2024 Attending Provider at Admission: Elena Hernandez MD Attending Provider at Discharge: Verito Miller MD Primary Care Provider: Oliver Dempsey MD Diagnoses at Discharge Discharge Diagnosis (1) Chronic ulcer of leg: Status: Acute Reason for Visit Reason for Visit: sob, leg cellulitis Hospital Course Hospital Course Andrew Ruggiero is a 58 year old male with past medical history of CHF, systolic, ICD in place, denies history of CAD, history of atrial fibrillation on Eliquis, history of hlj-[id number] type 2 diabetes mellitus, smoker, hypertension, hyperlipidemia on Entresto, history of abdominal wall hernia, history of chronic diabetic foot ulcers, history of diabetic neuropathy who presents to the hospital for shortness of breath and swelling bilateral lower extremities and worsening leg wounds that are chronic at least over the past 4 years. He has recently moved back to the [facility] from [place]. Was followed by wound care clinic here and in [place]. He was diagnosed with cellulitis. received empiric iv anx with Zosyn and Linezolid. He underwent debridement of deviualized tissue down to dermis by general surgery. Sanytyl dressings and wraps recommended at discharge with close follow up with wound care clinic here. at d.c abx transitioned to oral augmentin and linezolid. no cx available from in hospital debridemnet at this time. He is being discharged in improved condition today with recommendsation to continue dressing chanegs at home and close f/up with wound care clinic for [facility] ulcer care. Physical Exam Narrative: General: No acute distress, AO x3 HEENT: PERRLA, pupils bilaterally equal and reactive, pallors not present Chest: Normal vesicular breath sounds, no added sounds, equal good air entry bilaterally CVS: S1-S2 regular, no murmurs, no tachycardia, no gallops, no rubs Abdomen: Soft, nontender, no organomegaly, bowel sounds present Neuro: No focal deficits, no facial deformity, AO x3, power 5/5 in all limbs Discharge Data Studies Completed and Pending Completed Studies During Hospitalization Category Date Time Status CT lower leg LT w con [id number] Stat Cat Scan 11/21/24 15:[address] lower leg RT w con [id number] Stat Cat Scan 11/21/24 15:10 Completed XR chest 1V portable [id number] Stat Exams 11/21/24 12:03 Completed CV. echo complete* [id number] Routine Ultrasound 11/22/24 17:32 Completed US arterial duplex lower extremity bilat [CV arterial Ultrasound 11/21/24 13:38 [place] [id number]] Stat US venous duplex lower extremity bilat [CV venous Ultrasound 11/21/24 12:37 [place] [id number]] Stat Pending at discharge Category Date Time Status Blood Culture Stat Lab 11/21/24 14:42 Results Radiology Impressions Chest X-Ray 11/21/24 12:03 Impression: Atherosclerosis and cardiac pacemaker. Duplex Scan Lower Extremity Artery 11/21/24 13:38 IMPRESSION: No significant arterial stenosis or occlusion, however I am concerned for distal inflow disease in the left lower extremity. Lower Extremity CT 11/21/24 15:10 IMPRESSION: 1. Diffuse subcutaneous soft tissue edema with areas of skin thickening. Findings may be related to venous stasis, though cellulitis is not excluded. No loculated fluid collections to suggest abscess. 2. Scattered areas of periosteal thickening/reaction along the tibia and fibula could be related to chronic osteomyelitis. Superimposed acute osteomyelitis not entirely excluded. MRI could be considered for further evaluation if warranted. Laboratory Results WBC 7.97 10^3/uL (3.29-11.43) 11/24/24 06:09 RBC 5.12 10^6/uL (3.85-5.65) 11/24/24 06:09 Hgb 13.10 g/dL (11.27-16.99) 11/24/24 06:09 Hct 41.7 % (37-53) 11/24/24 06:09 MCV 81.4 fl (82-101) L 11/24/24 06:09 MCH 25.6 pg (27-33) L 11/24/24 06:09 MCHC 31.4 g/dL (30-55) 11/24/24 06:09 RDW 13.0 % (12.1-15.1) 11/24/24 06:09 Plt Count 271 10^3/cmm (157-399) 11/24/24 06:09 MPV 10.1 fL (7.4-10.4) 11/24/24 06:09 Neut % (Auto) 68.7 % 11/24/24 06:09 Lymph % (Auto) 23.7 % 11/24/24 06:09 [place] % (Auto) 6.3 % 11/24/24 06:09 Eos % (Auto) 0.5 % 11/24/24 06:09 Baso % (Auto) 0.4 % 11/24/24 06:09 Neut # (Auto) 5.48 10^3/uL (1.8-7.7) 11/24/24 06:09 Lymph # (Auto) 1.9 10^3/uL (0.8-4.8) 11/24/24 06:09 [place] # (Auto) 0.5 10^3/uL (0.2-0.9) 11/24/24 06:09 Eos # (Auto) 0.0 10^3/uL (0.0-0.8) 11/24/24 06:09 Baso # (Auto) 0.0 10^3/uL (0.0-0.1) 11/24/24 06:09 Nucleated RBC % (auto) 0 % 11/24/24 06:09 Nucleated RBCs # 0.0 /100WBC 11/24/24 06:09 ESR 39 mm/hr (0-10) H 11/21/24 11:39 Sodium 133 mmol/L (136-145) L 11/24/24 06:09 Potassium 4.4 mmol/L (3.5-5.1) 11/24/24 06:09 Chloride 103 mmol/L (98-107) 11/24/24 06:09 Carbon Dioxide 20 mmol/L (22-29) L 11/24/24 06:09 Anion Gap 14.4 (5-19) 11/24/24 06:09 BUN 11 mg/dL (6-20) 11/24/24 06:09 Creatinine 0.7 mg/dL (0.7-1.2) 11/24/24 06:09 GFR Calculation 116.2 mL/min (90-130) 11/24/24 06:09 Glucose 180 mg/dL (65-115) H 11/24/24 06:09 POC Glucose 312 mg/dL (70-110) H 11/24/24 11:15 Estimat Average Glucose 203 11/21/24 11:39 Hemoglobin A1c 8.7 % (4.0-6.0) H 11/21/24 11:39 Calculated Osmolality 280 mOsm/kg (285-295) L 11/24/24 06:09 Lactic Acid 1.4 mmol/L (0.5-2.2) 11/21/24 14:42 Calcium 8.7 mg/dL (8.5-10.5) 11/24/24 06:09 Magnesium 2.1 mg/dL (1.7-2.3) 11/24/24 06:09 Total Bilirubin 0.5 mg/dL (0.15-1.2) 11/21/24 11:39 AST 13 U/L (0-40) 11/21/24 11:39 ALT 8 U/L (0-41) 11/21/24 11:39 Alkaline Phosphatase 84 U/L (40-130) 11/21/24 11:39 Creatine Kinase 36 U/L (39-308) L 11/21/24 14:42 Troponin T Baseline 18 ng/L (0-15) H 11/21/24 14:42 Troponin T 120 Minute 12.47 ng/L (0-15) 11/21/24 16:43 Delta Troponin T -5.53 ABS# (0-10) L 11/21/24 16:43 C-Reactive Protein 58.9 mg/L (0.0-4.9) H 11/21/24 14:42 Total Protein 7.9 g/dL (6.6-8.7) 11/21/24 11:39 Albumin 3.3 g/dL (3.5-5.2) L 11/21/24 11:39 Globulin 4.6 g/dL (1.3-4.6) 11/21/24 11:39 Triglycerides 89 mg/dL (0-150) 11/21/24 14:42 Cholesterol 72 mg/dL (0-200) 11/21/24 14:42 LDL Cholesterol, Calc 31 mg/dL (50-129) L 11/21/24 14:42 Total VLDL Cholesterol 18 mg/dL (0-30) 11/21/24 14:42 HDL Cholesterol 23 mg/dL (60-100) L 11/21/24 14:42 Cholesterol/HDL Ratio 3.13 mg/dL (1.0-5.00) 11/21/24 14:42 Urine Color Yellow (Yellow) 11/21/24 12:13 Urine Appearance Clear (CLEAR) 11/21/24 12:13 Urine pH 6.0 (5-7) 11/21/24 12:13 Ur Specific [place] 1.035 (1.005-1.030) H 11/21/24 12:13 Urine Protein Negative (Negative) 11/21/24 12:13 Urine Glucose (UA) 3+ (Normal) H 11/21/24 12:13 Urine Ketones Negative (Negative) 11/21/24 12:13 Urine Blood Negative (Negative) 11/21/24 12:13 Urine Nitrate Negative (Negative) 11/21/24 12:13 Urine Bilirubin Negative (Negative) 11/21/24 12:13 Urine Urobilinogen 1.0 mg/dL (Negative) 11/21/24 12:13 Ur Leukocyte Esterase Negative (Negative) 11/21/24 12:13 Amorphous Sediment Not Reportable 11/21/24 12:13 Vitals Last Vital Signs Temp 97.5 F L 11/24/24 16:10 Pulse 68 11/24/24 16:10 Resp 16 11/24/24 16:10 BP 93/57 11/24/24 16:10 Pulse Ox 95 11/24/24 16:10 O2 Del Method Room Air 11/24/24 11:47 O2 Flow Rate 10 11/23/24 12:31 Discharge Plan Discharge Patient Disposition: Home Condition: Stable Prescriptions: New Santyl 250 unit/gram Ointment 1 applic topical DAILY Qty: 30 0RF linezolid 600 mg tablet 600 mg PO BID 7 Days Qty: 14 0RF amoxicillin-pot clavulanate 875-125 mg tablet 1 tab PO BID 7 Days Qty: 14 0RF Continued (DME) shower chair See Rx Instructions .Route .MEDSUPPLY Qty: 1 0RF Rx Instructions: As directed Eliquis 5 mg tablet 5 mg PO BID Qty: 60 0RF potassium chloride 20 mEq tablet extended release 20 meq PO BID Qty: 60 0RF Jardiance 10 mg tablet 10 mg PO DAILY Qty: 30 0RF Lipitor 10 mg tablet 10 mg PO DAILY Qty: 30 0RF metoprolol succinate 100 mg tablet extended release 24 hr 50 mg PO BID Qty: 30 0RF aspirin 81 mg tablet,delayed release (DR/EC) 81 mg PO DAILY sacubitril-valsartan [Entresto] 49-51 mg tablet 1 tab PO BID Discontinued spironolactone 25 mg tablet 12.5 mg PO DAILY Qty: 15 0RF Discharge Orders: Discharge Order (Routine); Ordered 11/24/24 Ordered By: Verito Miller Referrals: Anthony Caldwell FNP [Nurse Practitioner] - 11/26/24 2:00 pm Oliver Dempsey MD [Primary Care Provider] - 01/13/25 9:30 am Hector Day MD [Physician] - ([facility] f/up=ischemic cardiomyopathy s/p AICD) Discharge Diet: Cardiac and Diabetic Discharge Activity: Resume usual activity Patient Instructions: Amoxicillin/Clavulanate Potassium (By mouth), Linezolid (By mouth), Collagenase (On the skin) (Santyl), Cellulitis (ED), Deep Vein Thrombosis (DC), Acute Wound Care (DC), Debridement (DC), Opioid Safety, Post Anesthesia Care Discharge Attestations Time Spent in Discharge Care*: greater than 30 min Status at Discharge: Cognitive status at discharge: cognitively intact, Behavioral status at discharge: cooperative, Quality Metrics Clinical Quality Measures [ No reported AMI, CVA or VTE this stay] Coding Level of Care Code Acute Code for Chg Fwd Diagnoses Chronic ulcer of leg L97.909
== END 2024-11-24 15:45 | disposition home or self-care (01) | DRG 264 ==
LOC: ER 15:16 → MEDSURG 15:51
PROVIDERS: Student in an Organized Health Care Education/Training Program; Admitting Provider Internal Medicine; Emergency Provider Family Medicine; Family Provider Family Medicine; PCP Family Medicine; Visit Provider Student in an Organized Health Care Education/Training Program
PROC: 0JBP0ZZ Excision of Left Lower Leg Subcutaneous Tissue and Fascia, Open Approach (ICD-10-PCS; principal; 2024-11-23 10:00)
DX: E11.51 Type 2 diabetes mellitus with diabetic peripheral angiopathy without gangrene (principal); I50.20 Unspecified systolic (congestive) heart failure; L97.822 Non-pressure chronic ulcer of other part of left lower leg with fat layer exposed; L97.812 Non-pressure chronic ulcer of other part of right lower leg with fat layer exposed; L03.116 Cellulitis of left lower limb; L03.115 Cellulitis of right lower limb; E11.622 Type 2 diabetes mellitus with other skin ulcer; E11.40 Type 2 diabetes mellitus with diabetic neuropathy, unspecified; I11.0 Hypertensive heart disease with heart failure; Z95.810 Presence of automatic (implantable) cardiac defibrillator; I48.91 Unspecified atrial fibrillation; F17.210 Nicotine dependence, cigarettes, uncomplicated; E78.5 Hyperlipidemia, unspecified; Z79.01 Long term (current) use of anticoagulants; Z79.84 Long term (current) use of oral hypoglycemic drugs; Z79.82 Long term (current) use of aspirin; F10.20 Alcohol dependence, uncomplicated; I25.2 Old myocardial infarction; I82.412 Acute embolism and thrombosis of left femoral vein; I82.432 Acute embolism and thrombosis of left popliteal vein; I82.491 Acute embolism and thrombosis of other specified deep vein of right lower extremity; I25.5 Ischemic cardiomyopathy
CPT/HCPCS: 36415; 36416; 71045; 73701; 80048; 80053; 80061; 81003; 82550; 82962; 83036; 83605; 83735; 84484; 85025; 85651; 86140; 87040; 93005; 93306; 93925; 93970; 96365; 96372; 99285; J1100; J1815; J2020; J2250; J2405; J2543; J2704; J3010

== ENCOUNTER → 2024-11-26 13:38 | Outpatient (BNVA) | payer MEDICAID, SELFPAY | PROVIDERS: Family Provider Family Medicine; PCP Family Medicine; Visit Provider Thoracic Surgery (Cardiothoracic Vascular Surgery) | DX: I96 Gangrene, not elsewhere classified (principal); I87.2 Venous insufficiency (chronic) (peripheral); L97.822 Non-pressure chronic ulcer of other part of left lower leg with fat layer exposed; L97.812 Non-pressure chronic ulcer of other part of right lower leg with fat layer exposed | CPT/HCPCS: 11042; 11045; A6252; A6253 ==

== ENCOUNTER → 2024-11-28 09:19 | Outpatient (BNVA) | payer MEDICAID, SELFPAY | PROVIDERS: Family Provider Family Medicine; PCP Family Medicine; Visit Provider Thoracic Surgery (Cardiothoracic Vascular Surgery) | DX: I87.313 Chronic venous hypertension (idiopathic) with ulcer of bilateral lower extremity (principal) | CPT/HCPCS: 29581; A6252 ==

== ENCOUNTER 2024-12-03 16:31 | Emergency (ER) | payer MEDICAID, SELFPAY ==
[2024-12-03] VITALS (7 sets, daily range): BP systolic 105–153; BP diastolic 61–90; PULSE 66–100; RESP 15–21; TEMP 36.9; O2SAT 93–100; BMI 27.1
--- NOTE | 2024-12-03 16:35 | ECG_ITS ---
[facility] [place] Test Date: 2024-12-03 Pat Name: Andrew Ruggiero Department: Room: Gender: Male Digital Marketer: : 1965 Requested By: Cralos Alberto Mcclellan Order Number: [id number] Wilner MD: Ismael Sue M.D. Measurements Intervals [place] Rate: 82 P: 67 UT: 89 QRS: 222 QRSD: 156 T: 53 QT: 427 QTc: 500 Interpretive Statements ELECTRONIC VENTRICULAR PACEMAKER Compared to ECG 11/21/2024 17:56:56 No significant changes Electronically Signed On 12-05-2024 19:10:14 CDT by Ismael Sue M.D. [id number]
--- NOTE | 2024-12-03 16:56 | CTR_ITS ---
PROCEDURE INFORMATION: Exam: CT Head Without Contrast Exam date and time: 12/03/2024 5:12 PM Age: 59 years old Clinical indication: Dizziness; Additional info: Dizziness, altered mental status TECHNIQUE: Imaging protocol: Computed tomography of the head without contrast. Radiation optimization: All CT scans at this facility use at least one of these dose optimization techniques: automated exposure control; mA and/or kV adjustment per patient size (includes targeted exams where dose is matched to clinical indication); or iterative reconstruction. COMPARISON: CT head wo con* [id number] 10/25/2024 3:39 PM RADIATION DOSE METRICS: Total DLP (mGy-cm): 1097 FINDINGS: Brain: Age-related brain parenchymal atrophy. Areas of hypoattenuation in the periventricular and subcortical deep white matter likely on the basis of chronic microvascular ischemic changes. No acute intra cranial hemorrhage. No mass effect or midline shift. No definitive CT evidence of acute territorial infarction. Cerebral ventricles: Prominence of the lateral ventricular system likely on the basis of ex vacuo dilatation. Paranasal sinuses: Paranasal sinus mucosal thickening with suggestion of acute sinusitis involving the maxillary sinuses bilaterally. Frequent Mastoid air cells: Visualized mastoid air cells are well aerated. Bones: Intact calvarium. Soft tissues: Unremarkable. CT/CT head wo con* [id number] IMPRESSION: No acute intracranial process. Senescent changes. Acute paranasal sinusitis involving the bilateral maxillary sinuses.
--- NOTE | 2024-12-03 16:57 | XRR_ITS ---
PROCEDURE INFORMATION: Exam: XR Chest Exam date and time: 12/03/2024 5:16 PM Age: 59 years old Clinical indication: Dyspnea; Prior surgery; Surgery date: 6+ months; Surgery type: Pacer; Additional info: Dyspnea/cough TECHNIQUE: Imaging protocol: Radiologic exam of the chest. Views: 1 view. COMPARISON: CR XR chest 1V portable [id number] 11/21/2024 12:16 PM FINDINGS: Tubes, catheters and devices: Triple lead cardiac pacemaker device overlying the left chest wall. Lungs: Unremarkable. No consolidation. Pleural spaces: Unremarkable. No pleural effusion. No pneumothorax. Heart/Mediastinum: Unremarkable. No cardiomegaly. Bones/joints: There are chronic appearing bilateral rib deformities. XR/XR chest 1V portable [id number] IMPRESSION: As above.
--- NOTE | 2024-12-03 16:58 | W.ED.DIZZY ---
HPI - Dizziness General: Chief Complaint: Dizziness Stated Complaint: Dizziness Time Seen by Provider: 12/03/24 16:44 History of Present Illness: HPI Narrative: 51-year-old male presents to the emergency room with dizziness. He was at wound care this afternoon he did not seem to be acting like himself he said that room was spinning. He says he has had a bit of a head cold lately no fever no productive cough denies abdominal or chest pain. States he just generally does not feel himself. Associated symptoms: Denies chest pain or chills Related Data Home Medications ?Medication ?Instructions ?Recorded ?Confirmed aspirin 81 mg tablet,delayed 81 mg PO DAILY 05/27/23 11/21/24 release sacubitril 49 mg-valsartan 51 mg 1 tab PO BID 11/21/24 11/21/24 tablet (Entresto) Previous Rx's ?Medication ?Instructions ?Recorded shower chair #1 ea 05/29/23 apixaban 5 mg tablet (Eliquis) 5 mg PO BID #60 tabs 11/18/24 atorvastatin 10 mg tablet (Lipitor) 10 mg PO DAILY #30 tabs 11/18/24 empagliflozin 10 mg tablet 10 mg PO DAILY #30 tabs 11/18/24 (Jardiance) metoprolol succinate 100 mg 50 mg (1/2 x 100 mg) PO BID #30 11/18/24 tablet,extended release 24 hr tabs potassium chloride 20 mEq 20 meq PO BID #60 tabs 11/18/24 tablet,extended release collagenase clostridium histo. 250 1 applic topical DAILY #30 grams 11/24/24 unit/gram topical ointment (Santyl) Allergies Allergy/AdvReac Type Severity Reaction Status Date / Time No Known Allergies Allergy Verified 11/18/24 16:24 Review of Systems Const: Denies: fever(s) or chills Card: Denies: chest pain Resp: Denies: dyspnea GI: Denies: abdominal pain : Denies: dysuria, urinary frequency or urinary urgency Musc: Denies: neck pain or back pain Skin/Breast: Denies: rash PFS ED PFSH: Medical History Elevated blood pressure reading with diagnosis of hypertension Alcoholism with alcohol dependence Diabetes type 2, controlled Neuropathy History of non-ST elevation myocardial infarction (NSTEMI) Peripheral vascular disease Atrial fibrillation Hypertension CHF (congestive heart failure) EF 15-20% on 03/30 Surgical History Hx of umbilical hernia repair 07/05/23 lap repair of umbilical hernia with mesh- Dr Obrien History of implantable cardioverter-defibrillator (ICD) placement Family History Mother CAD (coronary artery disease) Social History Smoking and tobacco/nicotine status: never used tobacco/nicotine Alcohol intake: current Alcohol intake frequency: 3 or more drinks per day Alcohol type: beer Substance/Drug Use: former Date of last use: marijuana in 2021 Household members: children Marital status: Single Number of children: 2 Number of grandchildren: 0 Current occupational status: disabled Special duc needs: No Agree to transfusion: Yes Physical Exam Const: GENERAL APPEARANCE: cooperative ORIENTATION/CONSCIOUSNESS: Yes awake, Yes oriented to person, Yes oriented to place and Yes oriented to time HENMT: COMMON NORMALS: normocephalic, atraumatic and hearing grossly normal bilaterally HEAD & SCALP: normocephalic and atraumatic Resp: COMMON NORMALS: normal respiratory effort, No retractions, No use of accessory muscles and clear to auscultation bilaterally AUSCULTATION: clear to auscultation bilaterally Cardio: COMMON NORMALS: regular rate, regular rhythm and No murmurs present (Cardio) RATE: regular rate RHYTHM: regular rhythm GI: COMMON NORMALS: Soft to palpation and No hepatosplenomegaly present AUSCULTATION: Yes normoactive bowel sounds PALPATION: Yes Soft to palpation, No Tenderness to palpation present (GI), No Guarding due to palpation present (GI) and Yes No hepatosplenomegaly present Extremity: COMMON NORMALS: normal to inspection, capillary refill normal, no clubbing, cyanosis or edema, no calf tenderness and no pedal edema Neuro: SENSORIUM/ORIENTATION: Yes oriented to person, Yes oriented to place and Yes oriented to time Skin: COMMON NORMALS: no rashes or lesions noted GENERAL SKIN EXAM: no rashes or lesions noted Course Vital Signs: Vital signs: Vital Signs Temperature 98.4 F 12/03/24 16:32 Pulse Rate 66 12/03/24 19:12 Respiratory Rate 21 H 12/03/24 19:12 Blood Pressure 143/77 12/03/24 19:12 Pulse Oximetry 96 12/03/24 19:12 Oxygen Delivery Me thod Room Air 12/03/24 16:32 MDM - Dizziness Medical Decision Making COVID-19 was positive. Patient is maintaining saturations well no acute findings on any of the other labs or the x-ray. Will discharge patient home supportive cares follow-up as needed Lab Data 12/03/24 17:59 12/03/24 17:[address] 12/03/24 16:56 IMPRESSION: No acute intracranial process. Senescent changes. Acute paranasal sinusitis involving the bilateral maxillary sinuses. Chest X-Ray 12/03/24 16:57 IMPRESSION: As above. Laboratory Results WBC 6.08 10^3/uL (3.29-11.43) 12/03/24 17:59 RBC 5.30 10^6/uL (3.85-5.65) 12/03/24 17:59 Hgb 13.40 g/dL (11.27-16.99) 12/03/24 17:59 Hct 44.2 % (37-53) 12/03/24 17:59 MCV 83.4 fl (82-101) 12/03/24 17:59 MCH 25.3 pg (27-33) L 12/03/24 17:59 MCHC 30.3 g/dL (30-55) 12/03/24 17:59 RDW 14.7 % (12.1-15.1) 12/03/24 17:59 Plt Count 189 10^3/cmm (157-399) 12/03/24 17:59 MPV 9.9 fL (7.4-10.4) 12/03/24 17:59 Neut % (Auto) 62.6 % 12/03/24 17:59 Lymph % (Auto) 29.1 % 12/03/24 17:59 [place] % (Auto) 6.4 % 12/03/24 17:59 Eos % (Auto) 1.2 % 12/03/24 17:59 Baso % (Auto) 0.5 % 12/03/24 17:59 Neut # (Auto) 3.81 10^3/uL (1.8-7.7) 12/03/24 17:59 Lymph # (Auto) 1.8 10^3/uL (0.8-4.8) 12/03/24 17:59 [place] # (Auto) 0.4 10^3/uL (0.2-0.9) 12/03/24 17:59 Eos # (Auto) 0.1 10^3/uL (0.0-0.8) 12/03/24 17:59 Baso # (Auto) 0.0 10^3/uL (0.0-0.1) 12/03/24 17:59 Nucleated RBC % (auto) 0 % 12/03/24 17:59 Nucleated RBCs # 0.0 /100WBC 12/03/24 17:59 Sodium 133 mmol/L (136-145) L 12/03/24 17:59 Potassium 4.6 mmol/L (3.5-5.1) 12/03/24 17:59 Chloride 101 mmol/L (98-107) 12/03/24 17:59 Carbon Dioxide 22 mmol/L (22-29) 12/03/24 17:59 Anion Gap 14.6 (5-19) 12/03/24 17:59 BUN 8 mg/dL (6-20) 12/03/24 17:59 Creatinine 0.8 mg/dL (0.7-1.2) 12/03/24 17:59 GFR Calculation 99.3 mL/min (90-130) 12/03/24 17:59 Glucose 119 mg/dL (65-115) H 12/03/24 17:59 POC Glucose 117 mg/dL (70-110) H 12/03/24 17:06 Calculated Osmolality 275 mOsm/kg (285-295) L 12/03/24 17:59 Calcium 8.8 mg/dL (8.5-10.5) 12/03/24 17:59 Total Bilirubin 0.4 mg/dL (0.15-1.2) 12/03/24 17:59 AST 19 U/L (0-40) 12/03/24 17:59 ALT 12 U/L (0-41) 12/03/24 17:59 Alkaline Phosphatase 90 U/L (40-130) 12/03/24 17:59 Ammonia 29 umol/L (16-60) 12/03/24 17:59 Total Protein 7.9 g/dL (6.6-8.7) 12/03/24 17:59 Albumin 3.5 g/dL (3.5-5.2) 12/03/24 17:59 Globulin 4.4 g/dL (1.3-4.6) 12/03/24 17:59 Ethyl Alcohol < 10 mg/dL (0-10) 12/03/24 17:59 Influenza A (PCR) Negative (Negative) 12/03/24 17:12 Influenza Type B (PCR) Negative (Negative) 12/03/24 17:12 RSV (PCR) Negative (Negative) 12/03/24 17:12 SARS-CoV-2 (PCR) Positive (Negative) A 12/03/24 17:12 All radiology interpretation(s) finalized by discharge Discharge Plan Discharge Patient Disposition: Home Clinical Impression: COVID-19 Condition: Stable Prescriptions: No Action (DME) shower chair See Rx Instructions .Route .MEDSUPPLY Qty: 1 0RF Rx Instructions: As directed Eliquis 5 mg tablet 5 mg PO BID Qty: 60 0RF potassium chloride 20 mEq tablet extended release 20 meq PO BID Qty: 60 0RF Jardiance 10 mg tablet 10 mg PO DAILY Qty: 30 0RF Lipitor 10 mg tablet 10 mg PO DAILY Qty: 30 0RF metoprolol succinate 100 mg tablet extended release 24 hr 50 mg PO BID Qty: 30 0RF aspirin 81 mg tablet,delayed release (DR/EC) 81 mg PO DAILY sacubitril-valsartan [Entresto] 49-51 mg tablet 1 tab PO BID Santyl 250 unit/gram Ointment 1 applic topical DAILY Qty: 30 0RF Discharge Orders: Discharge ED (Routine); Ordered 12/03/24 Ordered By: Carlos Alberto Gómez Referrals: Oliver Dempsey MD [Primary Care Provider] - Discharge Diet: Usual diet Discharge Activity: Resume usual activity Patient Instructions: COVID-19 (Coronavirus Disease 2019) (ED), Opioid Safety, Pain Management Activity Restrictions/Additional Instructions: Thank you for choosing [facility] for your healthcare needs today. It is very important that you follow up as instructed or that you return to the Emergency Department should you have concerns or if your condition changes or worsens in any way. You were seen in the emergency room with complaint of dizziness. CT of your head did not show any acute intracranial pathology you do have a mild sinusitis. In addition to this you have COVID which is probably what is causing the sinus congestion. Treatment for this is xgop-tre-ttvzyst and symptomatic care. No antibiotics are needed. Print Language: Turkish Coding Level of Care Code ED Steward/Stewardess Room for Cecily Wood
[2024-12-03 18:06] LABS: Basophils % 0.5 %; Eosinophils # 0.1 10^3/uL (0.0-0.8); Eosinophils % 1.2 %; Hematocrit 44.2 % (37-53); Lymphocytes # 1.8 10^3/uL (0.8-4.8); Lymphocytes % 29.1 %; Mean Corpuscular HGB Conc 30.3 g/dL (30-55); Mean Corpuscular Hemoglobin 25.3 pg (27-33); Mean Corpuscular Volume 83.4 fl (82-101); Mean Platelet Volume 9.9 fL (7.4-10.4); Monocytes # 0.4 10^3/uL (0.2-0.9); Monocytes % 6.4 %; Neutrophils # 3.81 10^3/uL (1.8-7.7); Neutrophils % 62.6 %; Nucleated Red Blood Cells % 0 %; Platelet Count 189 10^3/cmm (157-399); Red Cell Distribution Width 14.7 % (12.1-15.1); White Blood Count 6.08 10^3/uL (3.29-11.43)
[2024-12-03 18:11] LABS: Influenza A NEGATIVE (Negative); Influenza B NEGATIVE (Negative); Respiratory Syncytial Virus Ce NEGATIVE (Negative)
[2024-12-03 18:29] LABS: Alanine Aminotransferase 12 U/L (0-41); Albumin Level 3.5 g/dL (3.5-5.2); Alkaline Phosphatase 90 U/L (40-130); Anion Gap 14.6 (5-19); Aspartate Amino Transferase 19 U/L (0-40); Blood Urea Nitrogen 8 mg/dL (6-20); Calcium 8.8 mg/dL (8.5-10.5); Carbon Dioxide 22 mmol/L (22-29); Chloride 101 mmol/L (98-107); Creatinine Clr Calc Pharmacy 101.1453; Globulin 4.4 g/dL (1.3-4.6); Glomerular Filtration Rate 99.3 mL/min (90-130); Glucose 119 mg/dL (65-115); Osmolality Calculated 275 mOsm/kg (285-295); Potassium 4.6 mmol/L (3.5-5.1); Sodium 133 mmol/L (136-145); Total Bilirubin 0.4 mg/dL (0.15-1.2); Total Protein 7.9 g/dL (6.6-8.7)
[2024-12-03 18:30] LABS: Ammonia 29 umol/L (16-60)
[2024-12-03 18:38] LABS: Alcohol Level < 10 mg/dL (0-10)
[2024-12-03 18:44] LABS: SARS-CoV-2 PCR Positive (Negative)
[2024-12-03 18:45] LABS: Glucose Point of Care 117 mg/dL (70-110)
== END 2024-12-03 19:13 | disposition home or self-care (01) ==
PROVIDERS: Emergency Provider Family Medicine; PCP Family Medicine
DX: U07.1 COVID-19 (principal); Z79.01 Long term (current) use of anticoagulants; Z79.82 Long term (current) use of aspirin; Z11.52 Encounter for screening for COVID-19; E11.40 Type 2 diabetes mellitus with diabetic neuropathy, unspecified; I11.0 Hypertensive heart disease with heart failure; I50.9 Heart failure, unspecified
CPT/HCPCS: 11042; 11045; 36415; 36416; 70450; 71045; 80053; 80307; 82140; 82962; 85025; 87637; 93005; 97597; 97598; 99285; A6197; A6252

== ENCOUNTER → 2024-12-10 14:27 | Outpatient (BNVA) | payer MEDICAID, SELFPAY | PROVIDERS: PCP Family Medicine; Visit Provider Thoracic Surgery (Cardiothoracic Vascular Surgery) | DX: I96 Gangrene, not elsewhere classified (principal); I87.2 Venous insufficiency (chronic) (peripheral); L97.822 Non-pressure chronic ulcer of other part of left lower leg with fat layer exposed; L97.811 Non-pressure chronic ulcer of other part of right lower leg limited to breakdown of skin | CPT/HCPCS: 11042; 11045; 97597; 97598; A6197; A6252; A6253 ==

== ENCOUNTER → 2024-12-16 08:23 | Outpatient (BNVA) | payer MEDICAID, SELFPAY | PROVIDERS: PCP Family Medicine; Visit Provider Thoracic Surgery (Cardiothoracic Vascular Surgery) | DX: I96 Gangrene, not elsewhere classified (principal); I87.2 Venous insufficiency (chronic) (peripheral); L97.822 Non-pressure chronic ulcer of other part of left lower leg with fat layer exposed; L97.811 Non-pressure chronic ulcer of other part of right lower leg limited to breakdown of skin | CPT/HCPCS: 11042; 11045; 97597; 97598; A6197; A6253 ==

== ENCOUNTER → 2024-12-19 08:29 | Outpatient (BNVA) | payer MEDICAID, SELFPAY | PROVIDERS: PCP Family Medicine; Visit Provider Thoracic Surgery (Cardiothoracic Vascular Surgery) | DX: I96 Gangrene, not elsewhere classified (principal); I87.2 Venous insufficiency (chronic) (peripheral); L97.822 Non-pressure chronic ulcer of other part of left lower leg with fat layer exposed; L97.821 Non-pressure chronic ulcer of other part of left lower leg limited to breakdown of skin; L97.812 Non-pressure chronic ulcer of other part of right lower leg with fat layer exposed | CPT/HCPCS: 87070; 87075; 87077; 87186; 87205; 97602 ==

== ENCOUNTER → 2024-12-23 09:18 | Outpatient (BNVA) | payer MEDICAID, SELFPAY | PROVIDERS: PCP Family Medicine; Visit Provider Thoracic Surgery (Cardiothoracic Vascular Surgery) | DX: I96 Gangrene, not elsewhere classified (principal); I87.2 Venous insufficiency (chronic) (peripheral); L97.822 Non-pressure chronic ulcer of other part of left lower leg with fat layer exposed; L97.821 Non-pressure chronic ulcer of other part of left lower leg limited to breakdown of skin; L97.811 Non-pressure chronic ulcer of other part of right lower leg limited to breakdown of skin | CPT/HCPCS: 11042; 97597; 97598 ==

== ENCOUNTER → 2024-12-26 09:24 | Outpatient (BNVA) | payer MEDICAID, SELFPAY | PROVIDERS: PCP Family Medicine; Visit Provider Thoracic Surgery (Cardiothoracic Vascular Surgery) | DX: I96 Gangrene, not elsewhere classified (principal); I87.2 Venous insufficiency (chronic) (peripheral); L97.822 Non-pressure chronic ulcer of other part of left lower leg with fat layer exposed; L97.812 Non-pressure chronic ulcer of other part of right lower leg with fat layer exposed | CPT/HCPCS: 97602 ==

== ENCOUNTER → 2024-12-30 09:35 | Outpatient (BNVA) | payer MEDICAID, SELFPAY | PROVIDERS: PCP Family Medicine; Visit Provider Thoracic Surgery (Cardiothoracic Vascular Surgery) | DX: I96 Gangrene, not elsewhere classified (principal); I87.2 Venous insufficiency (chronic) (peripheral); L97.812 Non-pressure chronic ulcer of other part of right lower leg with fat layer exposed; L97.821 Non-pressure chronic ulcer of other part of left lower leg limited to breakdown of skin | CPT/HCPCS: 11042; 97597; 97598; A6197; A6252; A6253 ==

== ENCOUNTER → 2025-01-02 08:53 | Outpatient (BNVA) | payer MEDICAID, SELFPAY | PROVIDERS: PCP Family Medicine; Visit Provider Thoracic Surgery (Cardiothoracic Vascular Surgery) | DX: I87.313 Chronic venous hypertension (idiopathic) with ulcer of bilateral lower extremity (principal) | CPT/HCPCS: A6197; A6253 ==

== ENCOUNTER → 2025-01-06 08:27 | Outpatient (BNVA) | payer MEDICAID, SELFPAY | PROVIDERS: PCP Family Medicine | DX: I96 Gangrene, not elsewhere classified (principal); I87.2 Venous insufficiency (chronic) (peripheral); L97.822 Non-pressure chronic ulcer of other part of left lower leg with fat layer exposed; L97.812 Non-pressure chronic ulcer of other part of right lower leg with fat layer exposed | CPT/HCPCS: 97597; 97598; A6197; A6253 ==

== ENCOUNTER → 2025-01-09 09:06 | Outpatient (BNVA) | payer MEDICAID, SELFPAY | PROVIDERS: PCP Family Medicine | DX: I87.313 Chronic venous hypertension (idiopathic) with ulcer of bilateral lower extremity (principal) | CPT/HCPCS: 29581; A6197; A6253 ==

== ENCOUNTER → 2025-01-13 09:34 | Outpatient (BNVA) | payer MEDICAID, SELFPAY | PROVIDERS: PCP Family Medicine; Visit Provider Thoracic Surgery (Cardiothoracic Vascular Surgery) | DX: I87.2 Venous insufficiency (chronic) (peripheral) (principal); L97.821 Non-pressure chronic ulcer of other part of left lower leg limited to breakdown of skin; L97.811 Non-pressure chronic ulcer of other part of right lower leg limited to breakdown of skin | CPT/HCPCS: 29581; 97597; 97598; A6197; A6253 ==

== ENCOUNTER → 2025-01-16 09:29 | Outpatient (BNVA) | payer MEDICAID, SELFPAY | PROVIDERS: PCP Family Medicine; Visit Provider Thoracic Surgery (Cardiothoracic Vascular Surgery) | DX: I87.313 Chronic venous hypertension (idiopathic) with ulcer of bilateral lower extremity (principal); I87.2 Venous insufficiency (chronic) (peripheral); I96 Gangrene, not elsewhere classified; L97.822 Non-pressure chronic ulcer of other part of left lower leg with fat layer exposed; L97.812 Non-pressure chronic ulcer of other part of right lower leg with fat layer exposed | CPT/HCPCS: 29581; A6197; A6252; A6253 ==

== ENCOUNTER → 2025-01-20 09:25 | Outpatient (BNVA) | payer MEDICAID, SELFPAY | PROVIDERS: PCP Family Medicine | DX: I96 Gangrene, not elsewhere classified (principal); I87.2 Venous insufficiency (chronic) (peripheral); L97.822 Non-pressure chronic ulcer of other part of left lower leg with fat layer exposed; L97.812 Non-pressure chronic ulcer of other part of right lower leg with fat layer exposed | CPT/HCPCS: 11042; 11045; 97597; A6197; A6252; A6253 ==

== ENCOUNTER → 2025-01-23 08:58 | Outpatient (BNVA) | payer MEDICAID, SELFPAY | PROVIDERS: PCP Family Medicine; Visit Provider Thoracic Surgery (Cardiothoracic Vascular Surgery) | DX: I87.313 Chronic venous hypertension (idiopathic) with ulcer of bilateral lower extremity (principal); I96 Gangrene, not elsewhere classified; I87.2 Venous insufficiency (chronic) (peripheral); L97.822 Non-pressure chronic ulcer of other part of left lower leg with fat layer exposed; L97.812 Non-pressure chronic ulcer of other part of right lower leg with fat layer exposed | CPT/HCPCS: 29581; A6197; A6252; A6253 ==

== ENCOUNTER → 2025-01-27 13:09 | Outpatient (BNVA) | payer MEDICAID, SELFPAY | PROVIDERS: PCP Family Medicine; Visit Provider Thoracic Surgery (Cardiothoracic Vascular Surgery) | DX: I96 Gangrene, not elsewhere classified (principal); I87.2 Venous insufficiency (chronic) (peripheral); L97.822 Non-pressure chronic ulcer of other part of left lower leg with fat layer exposed; L97.811 Non-pressure chronic ulcer of other part of right lower leg limited to breakdown of skin | CPT/HCPCS: 11042; 29581; 97597; 97598; A6197; A6253 ==

== ENCOUNTER 2025-01-30 05:46 | Inpatient (IN) | payer MEDICAID, SELFPAY ==
--- OUTSIDE RECORDS SUMMARY | 2024-09-25 10:15 | XMS_ITS ---
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 Role Phone Zack Geller Primary Care Provider REASON FOR VISIT DM f/u Social History Sex Assigned At : Social History Observation Description Sex Assigned At Male Encounters Encounter Location Date Provider Diagnosis [facility] [address] [place] [address] [phone] 09/25/2024 Zack Geller Plan Of Treatment No Information Progress Notes * Kai SOLORZANOEugeneOB: 7 (59 yo M)Acc No.[id number]:09/25/2024 Progress Notes Patient: Andrew JUAREZ Provider: Richar Geller MD :1965 A ge:58 Y S ex:Male Date:09/25/2024 Address:[address] [place], [place] [phone] Subjective: * Chief Complaints: * 1 . [...] MD Date: 0 09/25/2024 Generated for Sergey garvey/Jennifer/eTkarensmitting on: 0 01/31/2025 01:22 PM CDT
[2025-01-30] VITALS (8 sets, daily range): BP systolic 111–170; BP diastolic 79–99; PULSE 67–97; RESP 17–18; TEMP 36.4–36.9; O2SAT 91–99; BMI 27.6
--- NOTE | 2025-01-30 05:51 | ECG_ITS ---
[facility] Test Date: 2025-01-30 Pat Name: Andrew Ruggiero Department: Room: Gender: Male Rn Bariatric: : 1965 Requested By: Kay Mcclellan Order Number: [id number] Wilner MD: Ismael Sue M.D. Measurements Intervals [place] Rate: 84 P: 0 GA: 0 QRS: 233 QRSD: 160 T: 46 QT: 415 QTc: 493 Interpretive Statements ELECTRONIC VENTRICULAR PACEMAKER Compared to ECG 12/03/2024 16:35:25 No significant changes Electronically Signed On 01-30-2025 13:32:58 CDT by Ismael Sue M.D. [email or web address] [id number]
--- NOTE | 2025-01-30 05:54 | XRR_ITS ---
PROCEDURE INFORMATION: Exam: XR Chest Exam date and time: 01/30/2025 6:29 AM Age: 59 years old Clinical indication: Pain; Chest pressure; Prior surgery; Surgery date: 6+ months; Surgery type: Pacer; Additional info: Chest pain TECHNIQUE: Imaging protocol: Radiologic exam of the chest. Views: 1 view. COMPARISON: CR XR chest 1V portable [id number] 12/03/2024 5:16 PM FINDINGS: Tubes, catheters and devices: Left-sided cardiac pacemaker again noted. Lungs: No CHF/pulmonary edema. Visible lungs appear essentially clear. Pleural spaces: No visible pneumothorax. No definite pleural fluid. Heart/Mediastinum: Heart size is within normal limits. Bones/joints: No significant acute finding. XR/XR chest 1V portable [id number] IMPRESSION: 1. No definite CHF or pneumonia. 2. Other findings discussed above.
--- NOTE | 2025-01-30 05:54 | W.ED.CHESTPA ---
HPI - Chest Pain General: Chief Complaint: Chest Pain Stated Complaint: Chest Pain Time Seen by Provider: 01/30/25 05:54 History of Present Illness: 59-year-old man with a history of DVT, peripheral vascular disease, congestive heart failure with defibrillator placement, atrial fibrillation, chronic anticoagulation on Eliquis, hyperlipidemia, hypertension and diabetes who presents emergency room by ambulance with chest pain. He has a left chest pain. He says it started early this morning. Says he has not felt well for couple days but nothing specific. He has a cough which worsens the chest pain. He also felt somewhat dizzy this morning. He says he has no history of heart attacks. No fevers. No altered mental status. No nausea or vomiting. No abdominal pain. Related Data Home Medications ?Medication ?Instructions ?Recorded ?Confirmed acetaminophen 325 mg tablet 325 mg PO QID PRN Pain 01/07/25 01/30/25 (Tylenol) Previous Rx's ?Medication ?Instructions ?Recorded apixaban 5 mg tablet (Eliquis) 5 mg PO BID #180 tabs 01/07/25 aspirin 81 mg tablet,delayed 81 mg PO DAILY #90 tabs 01/07/25 release atorvastatin 10 mg tablet (Lipitor) 10 mg PO DAILY #90 tabs 01/07/25 empagliflozin 10 mg tablet 10 mg PO DAILY #90 tabs 01/07/25 (Jardiance) metoprolol succinate 100 mg 50 mg (1/2 x 100 mg) PO BID #90 01/07/25 tablet,extended release 24 hr tabs potassium chloride 20 mEq 20 meq PO BID #180 tabs 01/07/25 tablet,extended release sacubitril 49 mg-valsartan 51 mg 1 tab PO BID #90 tabs 01/07/25 tablet (Entresto) spironolactone 25 mg tablet 12.5 mg (1/2 x 25 mg) PO DAILY #90 01/07/25 tabs thiamine HCl (vitamin B1) 100 mg 100 mg PO DAILY #90 tabs 01/08/25 tablet Allergies Allergy/AdvReac Type Severity Reaction Status Date / Time No Known Allergies Allergy Verified 01/07/25 13:05 Review of Systems Narrative: Constitutional symptoms: Negative except as documented in HPI. Skin symptoms: Negative except as documented in HPI. Eye symptoms: Negative except as documented in HPI. ENMT symptoms: Negative except as documented in HPI. Respiratory symptoms: Negative except as documented in HPI. Cardiovascular symptoms: Negative except as documented in HPI. Gastrointestinal symptoms: Negative except as documented in HPI. Genitourinary symptoms: Negative except as documented in HPI. Musculoskeletal symptoms: Negative except as documented in HPI. Neurologic symptoms: Negative except as documented in HPI. Psychiatric symptoms: Negative except as documented in HPI. Endocrine symptoms: Negative except as documented in HPI. PFSH ED PFSH: Medical History Tobacco use disorder Heart failure with mildly reduced ejection fraction (HFmrEF) Elevated blood pressure reading with diagnosis of hypertension Alcoholism with alcohol dependence Diabetes type 2, controlled Neuropathy History of non-ST elevation myocardial infarction (NSTEMI) Peripheral vascular disease Atrial fibrillation Hypertension CHF (congestive heart failure) EF 15-20% on 03/30 Surgical History Hx of umbilical hernia repair 07/05/23 lap repair of umbilical hernia with mesh- Dr Obrien History of implantable cardioverter-defibrillator (ICD) placement Family History Mother CAD (coronary artery disease) Social History Smoking and tobacco/nicotine status: current every day tobacco/nicotine user cigarettes [ Other cigarette details: 1.5 pack per day x 40 years, currently down to 3-4 cig/day] Alcohol intake: current Alcohol intake frequency: 3 or more drinks per day Alcohol type: beer Substance/Drug Use: former Date of last use: marijuana in 2021 Household members: children Marital status: Single Number of children: 2 Number of grandchildren: 0 Current occupational status: disabled Special duc needs: No Agree to transfusion: Yes Physical Exam Narrative: EXAM NARRATIVE: General: Alert, no acute distress. Skin: Warm, dry. Head: Normocephalic, atraumatic. Neck: Supple, trachea midline. Eye: Extraocular movements are intact. Ears, nose, mouth and throat: mucosa moist. Cardiovascular: Regular, Normal peripheral perfusion. Respiratory: Lungs are clear to auscultation, respirations are non-labored, breath sounds are equal, Symmetrical chest wall expansion. Gastrointestinal: Soft, Nontender, Non distended Musculoskeletal: Normal ROM, no deformity. Neurological: Alert and oriented, No focal neurological deficit observed. Psychiatric: Cooperative, appropriate mood & affect. Course Vital Signs: Vital signs: Vital Signs Temperature 97.9 F 01/30/25 05:47 Pulse Rate 83 01/30/25 07:45 Respiratory Rate 18 01/30/25 06:40 Blood Pressure 140/87 01/30/25 07:45 Pulse Oximetry 93 01/30/25 07:45 Oxygen Delivery Me thod Room Air 01/30/25 07:45 MDM - Chest Pain Medical Decision Making Differential diagnosis for patient with chest pain includes but is not limited to and based on the above HPI, review of systems and physical exam: Pneumonia. unstable angina. angina. Acute coronary syndrome / [place]. Pulmonary embolism. Costochondritis / musculoskeletal. Pleurisy. Pericarditis. Esophageal spasm. Pancreatis. Cholecystitis. Orders placed to evaluate differential diagnosis based on the above differential, HPI and physical exam EKG: Time 5:51 AM. Rate 84. Normal sinus rhythm, No ST-T changes, no ectopy, paced rhythm, this was reviewed and interpreted by myself the emergency room physician at 5:58 AM Chest x-ray: Pacemaker in place. No acute process. No infiltrate. No pneumothorax. This was reviewed and interpreted by myself the emergency room physician. I also reviewed the radiology report. Lab Review: Laboratory results were reviewed and interpreted by myself the emergency room physician. No leukocytosis. No anemia. No renal failure. Serial cardiac markers are 15 and unchanged. I reviewed the patient's medical record. Reexamination: Patient continues to have some chest discomfort. Was unrelieved some by nitroglycerin. Given his medical problems and his discomfort with going home he is being admitted to observation. Consultation: I spoke with Dr. Kelsey who is on-call for the hospitalist service who agrees to admission. Heart score is 4 which indicates observation. Assessment and plan: Chest pain -I discussed the patient with the hospitalist on-call who is admitting the patient. - Discussed findings and plan with patient. Answered any questions. - All laboratory values were reviewed and interpreted personally by myself, the ER physician - All imaging was reviewed and interpreted personally by myself, the ER physician. - Evaluation and treatment of this problem were appropriate in the emergency setting Lab Data 01/30/25 05:55 01/30/25 05:55 Radiology Impressions Chest X-Ray 01/30/25 05:54 IMPRESSION: 1. No definite CHF or pneumonia. 2. Other findings discussed above. Laboratory Results WBC 3.65 10^3/uL (3.29-11.43) 01/30/25 05:55 RBC 5.62 10^6/uL (3.85-5.65) 01/30/25 05:55 Hgb 14.60 g/dL (11.27-16.99) 01/30/25 05:55 Hct 46.8 % (37-53) 01/30/25 05:55 MCV 83.3 fl (82-101) 01/30/25 05:55 MCH 26.0 pg (27-33) L 01/30/25 05:55 MCHC 31.2 g/dL (30-55) 01/30/25 05:55 RDW 16.6 % (12.1-15.1) H 01/30/25 05:55 Plt Count 132 10^3/cmm (157-399) L 01/30/25 05:55 MPV 10.1 fL (7.4-10.4) 01/30/25 05:55 Neut % (Auto) 47.0 % 01/30/25 05:55 Lymph % (Auto) 38.4 % 01/30/25 05:55 [place] % (Auto) 7.7 % 01/30/25 05:55 Eos % (Auto) 5.8 % 01/30/25 05:55 Baso % (Auto) 0.8 % 01/30/25 05:55 Neut # (Auto) 1.72 10^3/uL (1.8-7.7) L 01/30/25 05:55 Lymph # (Auto) 1.4 10^3/uL (0.8-4.8) 01/30/25 05:55 [place] # (Auto) 0.3 10^3/uL (0.2-0.9) 01/30/25 05:55 Eos # (Auto) 0.2 10^3/uL (0.0-0.8) 01/30/25 05:55 Baso # (Auto) 0.0 10^3/uL (0.0-0.1) 01/30/25 05:55 Nucleated RBC % (auto) 0 % 01/30/25 05:55 Nucleated RBCs # 0.0 /100WBC 01/30/25 05:55 PT 13.20 SECONDS (12.1-14.9) 01/30/25 05:55 INR 0.93 (0.8-1.2) 01/30/25 05:55 APTT 26.8 SECONDS (23.9-36.7) 01/30/25 05:55 D-Dimer 0.93 ug/mLFEU (0-0.59) H 01/30/25 05:55 Sodium 139 mmol/L (136-145) 01/30/25 05:55 Potassium 4.3 mmol/L (3.5-5.1) 01/30/25 05:55 Chloride 103 mmol/L (98-107) 01/30/25 05:55 Carbon Dioxide 21 mmol/L (22-29) L 01/30/25 05:55 Anion Gap 19.3 (5-19) H 01/30/25 05:55 BUN 7 mg/dL (6-20) 01/30/25 05:55 Creatinine 0.8 mg/dL (0.7-1.2) 01/30/25 05:55 GFR Calculation 99.3 mL/min (90-130) 01/30/25 05:55 Glucose 160 mg/dL (65-115) H 01/30/25 05:55 Calculated Osmolality 289 mOsm/kg (285-295) 01/30/25 05:55 Lactic Acid 1.0 mmol/L (0.5-2.2) 01/30/25 05:55 Calcium 8.9 mg/dL (8.5-10.5) 01/30/25 05:55 Total Bilirubin 0.4 mg/dL (0.15-1.2) 01/30/25 05:55 AST 43 U/L (0-40) H 01/30/25 05:55 ALT 35 U/L (0-41) 01/30/25 05:55 Alkaline Phosphatase 110 U/L (40-130) 01/30/25 05:55 Troponin T Baseline 15 ng/L (0-15) 01/30/25 05:55 Troponin T 120 Minute 14.34 ng/L (0-15) 01/30/25 07:45 Delta Troponin T -0.66 ABS# (0-10) L 01/30/25 07:45 NT-Pro-B Natriuret Pep 229 pg/mL (0-125) H 01/30/25 05:55 Total Protein 8.2 g/dL (6.6-8.7) 01/30/25 05:55 Albumin 3.9 g/dL (3.5-5.2) 01/30/25 05:55 Globulin 4.3 g/dL (1.3-4.6) 01/30/25 05:55 Influenza A (PCR) Negative (Negative) 01/30/25 06:05 Influenza Type B (PCR) Negative (Negative) 01/30/25 06:05 RSV (PCR) Negative (Negative) 01/30/25 06:05 SARS-CoV-2 (PCR) Negative (Negative) 01/30/25 06:05 All radiology interpretation(s) finalized by discharge Clincial Decision Support The following clinical decision support tools were used to aid in care of the patient HEART Score -> History: Moderately Suspicious, EKG: Normal, Age: 45-64 yrs, Risk Factors: >/=3 Risk Factors, Troponin: Baseline Trop <16 ng/L. Resulting HEART Score: 4. Discharge Plan Discharge Patient Disposition: Placed in Observation Admit Provider: Vin Kelsey Clinical Impression: Chest pain Coding Level of Care Code ED [employer] for Chg Nina
[2025-01-30 06:22] LABS: Basophils % 0.8 %; Eosinophils # 0.2 10^3/uL (0.0-0.8); Eosinophils % 5.8 %; Hematocrit 46.8 % (37-53); Lymphocytes # 1.4 10^3/uL (0.8-4.8); Lymphocytes % 38.4 %; Mean Corpuscular HGB Conc 31.2 g/dL (30-55); Mean Corpuscular Volume 83.3 fl (82-101); Mean Platelet Volume 10.1 fL (7.4-10.4); Monocytes # 0.3 10^3/uL (0.2-0.9); Monocytes % 7.7 %; Neutrophils # 1.72 10^3/uL (1.8-7.7); Nucleated Red Blood Cells % 0 %; Platelet Count 132 10^3/cmm (157-399); Red Blood Count 5.62 10^6/uL (3.85-5.65); Red Cell Distribution Width 16.6 % (12.1-15.1); White Blood Count 3.65 10^3/uL (3.29-11.43)
[2025-01-30 06:40] LABS: Troponin(5th) Baseline 15 ng/L (0-15)
[2025-01-30 06:54] LABS: NT Pro B Type Natriuretic Pept 229 pg/mL (0-125)
[2025-01-30 06:58] LABS: Influenza A NEGATIVE (Negative); Influenza B NEGATIVE (Negative); Respiratory Syncytial Virus Ce NEGATIVE (Negative); SARS-CoV-2 PCR NEGATIVE (Negative)
[2025-01-30 07:20] LABS: Alanine Aminotransferase 35 U/L (0-41); Albumin Level 3.9 g/dL (3.5-5.2); Alkaline Phosphatase 110 U/L (40-130); Blood Urea Nitrogen 7 mg/dL (6-20); Calcium 8.9 mg/dL (8.5-10.5); Carbon Dioxide 21 mmol/L (22-29); Chloride 103 mmol/L (98-107); Creatinine Clr Calc Pharmacy 101.9203; Globulin 4.3 g/dL (1.3-4.6); Glomerular Filtration Rate 99.3 mL/min (90-130); Glucose 160 mg/dL (65-115); Osmolality Calculated 289 mOsm/kg (285-295); Sodium 139 mmol/L (136-145); Total Bilirubin 0.4 mg/dL (0.15-1.2); Total Protein 8.2 g/dL (6.6-8.7)
[2025-01-30 07:21] LABS: Anion Gap 19.3 (5-19); Aspartate Amino Transferase 43 U/L (0-40); Potassium 4.3 mmol/L (3.5-5.1)
[2025-01-30] MEDS: nitroglycerin 0.4 mg sublingual Tablet SUBLINGUAL (07:42)
[2025-01-30] MEDS: aspirin 81 mg Chew Tablet 324 MG PO (07:42)
[2025-01-30 08:10] LABS: Troponin 5 2HR 14.34 ng/L (0-15)
[2025-01-30 08:11] LABS: Troponin 5 2HR Delta -0.66 ABS# (0-10)
--- NOTE | 2025-01-30 08:21 | ECG_ITS ---
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
[2025-01-30 08:43] LABS: INR 0.93 (0.8-1.2); Partial Thromboplastin Time 26.8 SECONDS (23.9-36.7)
--- NOTE | 2025-01-30 09:03 | PM.HP ---
Providers/Chief Complaint Primary Care Provider: Oliver Dempsey MD Chief Complaint: Chest Pain History of Present Illness 59-year-old gentleman with history of systolic congestive heart failure, status post ICD, coronary disease, atrial fibrillation on Eliquis, peripheral chill disease, venous insufficiency ulcers on bilateral lower extremities, following with wound care clinic, DM2, diabetic neuropathy, HTN, HLD, smoking, other medical problems presents after waking up around 3 AM this morning with chest pain and left side as well as left arm, he denies having issues with that pain previously. He denies being short of breath, or having more cough than usual, although does have a chronic productive smoker's cough. She reports he is currently homeless after being kicked out by his son and kicked out by the homeless assisted. Review of Systems Const: Denies: fever(s), chills, body aches or malaise Eyes: Denies: change in vision, eye discomfort or eye redness ENMT: Denies: throat pain, oral sores or ear or mastoid pain Card: Reports: chest pain; Denies: edema, pre-syncope or dyspnea on exertion Resp: Denies: dyspnea, productive cough, change in phlegm color or hemoptysis GI: Denies: abdominal pain, nausea, vomiting, diarrhea, constipation, hematochezia or melena : Denies: flank pain, difficulty urinating, urinary frequency or hematuria Musc: Denies: back pain, joint swelling or joint redness Skin/Breast: Denies: rash Neuro: Denies: headache(s), numbness in extremities, weakness in extremities, dizziness, confusion or seizure-like activity Endo: Denies: polyuria or polydipsia Jeff/Lymph: Denies: easy bleeding or tender lymph nodes All/Imm: Denies: urticaria or tongue swelling Medications/Allergies Home Medications ?Medication ?Instructions ?Recorded ?Confirmed ?Last Taken ?Type acetaminophen 325 mg tablet 325 mg PO QID PRN Pain 01/07/25 01/30/25 01/29/25 History (Tylenol) apixaban 5 mg tablet (Eliquis) 5 mg PO BID #180 tabs 01/07/25 01/30/25 01/29/25 Rx aspirin 81 mg tablet,delayed 81 mg PO DAILY #90 tabs 01/07/25 01/30/25 01/29/25 Rx release atorvastatin 10 mg tablet (Lipitor) 10 mg PO DAILY #90 tabs 01/07/25 01/30/25 01/29/25 Rx empagliflozin 10 mg tablet 10 mg PO DAILY #90 tabs 01/07/25 01/30/25 01/29/25 Rx (Jardiance) metoprolol succinate 100 mg 50 mg (1/2 x 100 mg) PO BID #90 01/07/25 01/30/25 01/29/25 Rx tablet,extended release 24 hr tabs potassium chloride 20 mEq 20 meq PO BID #180 tabs 01/07/25 01/30/25 01/29/25 Rx tablet,extended release sacubitril 49 mg-valsartan 51 mg 1 tab PO BID #90 tabs 01/07/25 01/30/25 01/29/25 Rx tablet (Entresto) spironolactone 25 mg tablet 12.5 mg (1/2 x 25 mg) PO DAILY #90 01/07/25 01/30/25 01/29/25 Rx tabs thiamine HCl (vitamin B1) 100 mg 100 mg PO DAILY #90 tabs 01/08/25 01/30/25 01/29/25 Rx tablet Allergies Allergy/AdvReac Type Severity Reaction Status Date / Time No Known Allergies Allergy Verified 01/07/25 13:05 PFSH Acute PFSH: Medical History Tobacco use disorder Heart failure with mildly reduced ejection fraction (HFmrEF) Elevated blood pressure reading with diagnosis of hypertension Alcoholism with alcohol dependence Diabetes type 2, controlled Neuropathy History of non-ST elevation myocardial infarction (NSTEMI) Peripheral vascular disease Atrial fibrillation Hypertension CHF (congestive heart failure) EF 15-20% on 03/30 Surgical History Hx of umbilical hernia repair 07/05/23 lap repair of umbilical hernia with mesh- Dr Obrien History of implantable cardioverter-defibrillator (ICD) placement Family History Mother CAD (coronary artery disease) Social History Smoking and tobacco/nicotine status: current every day tobacco/nicotine user cigarettes [ Other cigarette details: 1.5 pack per day x 40 years, currently down to 3-4 cig/day] Alcohol intake: current Alcohol intake frequency: 3 or more drinks per day Alcohol type: beer Substance/Drug Use: former Date of last use: marijuana in 2021 Household members: children Marital status: Single Number of children: 2 Number of grandchildren: 0 Current occupational status: disabled Special duc needs: No Agree to transfusion: Yes Vitals/I&O/Wt Last Vital Signs Temp 97.9 F 01/30/25 05:47 Pulse 83 01/30/25 07:45 Resp 18 01/30/25 06:40 BP 140/87 01/30/25 07:45 Pulse Ox 93 01/30/25 07:45 O2 Del Method Room Air 01/30/25 07:45 Weight last 48 hrs Weight 79.832 kg Physical Exam Const: COMMON NORMALS: patient oriented x3 and alert GENERAL APPEARANCE: cooperative ORIENTATION/CONSCIOUSNESS: Yes awake HENMT: COMMON NORMALS: oropharynx normal Neck/C-Spine: COMMON NORMALS: no JVD Resp: COMMON NORMALS: normal respiratory effort and clear to auscultation bilaterally AUSCULTATION: clear to auscultation bilaterally Cardio: COMMON NORMALS: no JVD, regular rhythm, S1 normal heart sound present, S2 normal heart sound present and No murmurs present (Cardio) RHYTHM: regular rhythm HEART SOUNDS: S1 normal heart sound present and S2 normal heart sound present GI: COMMON NORMALS: Normal to inspection, nondistended, normoactive bowel sounds present, Soft to palpation and non-tender PALPATION: Yes Soft to palpation Extremity: COMMON NORMALS: no joint enlargement and no pedal edema Neuro: COMMON NORMALS: patient oriented x3 and moves all extremities SENSORIUM/ORIENTATION: Yes alert Skin: COMMON NORMALS: no rashes or lesions noted NARRATIVE SKIN EXAM: Venous stasis ulcers under compression wraps GENERAL SKIN EXAM: no rashes or lesions noted Data 01/30/25 05:55 01/30/25 05:55 Micro: Microbiology 01/30/25 06:08 Blood Culture - Preliminary Blood SPECIMEN COLLECTED 01/30/25 06:02 Blood Culture - Preliminary Blood SPECIMEN COLLECTED A&P Assessment and plan (1) Chest pain: Left sided chest pain, radiating to L arm. W Hx CAD, CHF, S/P icd, AFib, reports PAD, smoking. Reviewed trop, EKG, on my interpretation paced rhythm, pending official read. BNP, CBC, CMP, CXR, ER provider note, discussed with ER provider. Symptoms improved but not resolved entirely at this point. Complete trop and EKG series. Obtain limited TTE. Discussed with him subsequent additional risk stratification, possibly stress test with which he is agreeable, although it is not available over the weekend. He has had a stress test in the past. Requested DDimer. Noted abnormal on review. Requesting additional assessment with CTA. Plan CHF: Chronic systolic CHF, status post ICD, not currently in exacerbation. Continue Entresto. Spironolactone. Smoking: Discussed more consideration for 3 and half minutes with him, he had cut down quite significantly from about a pack a day down to 3 to 4 cigarettes a day. Discussed with him risks of continued smoking, encouraged continued cessation efforts. Will provide nicotine replacement as needed. DM2: Monitor POC glucose, SSI, consider carbohydrate diet. HTN: Monitor blood pressure, continue metoprolol, Entresto, spironolactone. A-fib: Continue Eliquis, metoprolol Daily alcohol: She drinks up to 2 tall cans of beer daily.Continue thiamine. PDMP PDMP Reviewed: Not Reviewed Attestations Medical Necessity Statement*: Place in observation for additional assessment management of chest pain and gentleman with underlying CAD, additional comorbidities as above. and High MDM includes amount and/or complexity of data reviewed/ordered [ previous or external records, resulted lab(s)/test(s), ordered lab(s)/test(s), independent test interpretation and other healthcare professional discussion] as documented Diagnoses Chest pain R07.9
[2025-01-30 09:38] LABS: D Dimer 0.93 ug/mLFEU (0-0.59)
--- NOTE | 2025-01-30 09:42 | CT_ITS ---
WS: [id number] CTA OF THE CHEST WITH PULMONARY EMBOLISM PROTOCOL TECHNIQUE: High-resolution contrast enhanced CTA of the chest with coronal and sagittal reformatted images with pulmonary embolism protocol. MIP images are also reviewed. CLINICAL INFORMATION: assess for PE COMPARISON: None. DLP: 383.[address] scans at [facility] use at least one of these dose optimization techniques: automated exposure control; mA and/or kV adjustment per patient size (includes targeted exams where dose is matched to clinical indication); or iterative reconstruction. FINDINGS: Proximal main pulmonary arteries are normal. Normal segmental and subsegmental pulmonary arteries. No evidence for pulmonary embolus. Slightly nodular RIGHT thyroid. Normal caliber thoracic aorta. Small esophageal hiatal hernia. Adrenal glands are normal. Lungs are well aerated. Thoracic kyphosis. Ankylosis thoracic spine. Chronic RIGHT rib fracture with callus formation. No other acute findings. CT/CT angio chest PE protcl [id number] IMPRESSION: No evidence of pulmonary embolus
[2025-01-30] MEDS: morphine 4 mg/mL SDV 1 mL IVP (10:26)
[2025-01-30] MEDS: ondansetron 2 mg/ML SDV 2 mL 4 MG IVP (10:27)
[2025-01-30] MEDS: iohexol 350 mg/mL 500 mL Btl (per mL) IV (10:29)
[2025-01-30] MEDS: LORazepam 2 mg/mL INJ 1 mL 1 MG IVP (10:53)
--- NOTE | 2025-01-30 10:59 | PC.NURSE ---
WASTED ATIVAN 1MG WITH MARKEL MITCHELL. PHARMACIST SHERIN VERIFIED WASTE WELL.
--- NOTE | 2025-01-30 11:25 | PC.NURSE ---
witnessed waste of 1mg of Ativan with MARKEL Owusu
[2025-01-30] MEDS: thiamine 100 mg/mL 2mL SDV IM (12:29)
[2025-01-30] MEDS: folic acid 1 mg Tablet PO ×2 (12:29→12:31)
[2025-01-30] MEDS: multivitamin therapeutic Tablet 1 TAB PO (12:29)
[2025-01-30] MEDS: thiamine 100 mg Tablet PO ×2 (12:30→12:31)
[2025-01-30 12:33] LABS: Glucose Point of Care 122 mg/dL (70-110)
--- NOTE | 2025-01-30 12:59 | P.CONIM_ITS ---
Providers/Reason For Consult 2 Consulting Physician/Specialty*: Wound care Reason for Consult*: Open wounds to bilateral lower extremities Requesting Physician: Vin Kelsey Attending Physician: iVn Kelsey Primary Care Provider: Oliver Dempsey MD History of Present Illness History of Present Illness Andrew Ruggiero is a 59 year old male who is well-known to our service and last seen by Dr. Griffin at wound care on January 27. His past medical history includes DVT, peripheral vascular disease, congestive heart failure with defibrillator placement, atrial fibrillation, chronic anticoagulation, hyperlipidemia, and diabetes. He is currently being treated for 1 wound to his right lower extremity and 3 wounds to his left lower extremity due to venous insufficiency also complicated by diabetes. He was scheduled to be seen at [facility] wound care today for a compression wrap change though we were notified he was in the hospital due to chest pain. He is currently on the cardiac stepdown unit and being medically managed by Dr. Kelsey. He currently has no complaints regarding his legs and his 2 layer compression wraps are in place bilaterally. Review of Systems 2 General: Reports: 10 or more systems reviewed and unremarkable except in HPI and below Const: Denies: fever(s), chills, body aches or night sweats Card: Reports: edema Resp: Denies: dyspnea Skin/Breast: Reports: sores Medications/Allergies Home Medications ?Medication ?Instructions ?Recorded ?Confirmed ?Last Taken ?Type acetaminophen 325 mg tablet 325 mg PO QID PRN Pain 01/30/25 01/29/25 History (Tylenol) apixaban 5 mg tablet (Eliquis) 5 mg PO BID #180 tabs 0 01/07/25 01/30/25 01/29/25 Rx aspirin 81 mg tablet,delayed 81 mg PO DAILY #90 tabs 0 01/07/25 01/30/25 01/29/25 Rx release atorvastatin 10 mg tablet (Lipitor) 10 mg PO DAILY #90 tabs 01/07/25 01/30/25 01/29/25 Rx empagliflozin 10 mg tablet 10 mg PO DAILY #90 tabs 01/30/25 01/29/25 Rx (Jardiance) metoprolol succinate 100 mg 50 mg (1/2 x 100 mg) PO BI D #90 01/07/25 01/30/25 01/29/25 Rx tablet,extended release 24 hr tabs potassium chloride 20 mEq 20 meq PO BID #180 tabs 12/2301/30/25 01/29/25 Rx tablet,extended release sacubitril 49 mg-valsartan 51 mg 1 tab PO BID #90 tabs 01/07/25 01/30/25 01/29/25 Rx tablet (Entresto) spironolactone 25 mg tablet 12.5 mg (1/2 x 25 mg) PO D AILY #90 01/07/25 01/30/25 01/29/25 Rx tabs thiamine HCl (vitamin B1) 100 mg 100 mg PO DAILY #90 t abs 01/08/25 01/30/25 01/29/25 Rx tablet Allergies Allergy/AdvReac Type Severity Reaction Status Date / Time No Known Allergies Allergy Verified 01/07/25 13:05 Current Medications Generic Name Dose Route Start Last Admin Trade Name Freq PRN Reason Stop Dose Admin Folic Acid 1 mg 01/30/25 11:01/30/25 12:31 Folic Acid 1 Mg Tablet PO 1 mg DAILY JERRY Administration Insulin Human Lispro 0 unit 01/30/25 12:00 01/30/25 12:31 Insulin Lispro 100 Unit/1 Ml SUBCUT Not Given WM&BEDTIME [facility] Protocol Multivitamins Therapeutic 1 tab 01/30/25 11:31 01/30/25 12:29 Multivitamin Therapeutic Tablet PO 1 tab DAILY JERRY Administration Thiamine Mononitrate 100 mg 01/31/25 09:00 01/30/25 12:30 Thiamine 100 Mg Tablet PO 100 mg DAILY JERRY Administration Thiamine Mononitrate 100 mg 01/30/25 11:31 01/30/25 12:31 Thiamine 100 Mg Tablet PO 100 mg DAILY JERRY Administration PFSH Acute 2 PFSH: Medical History Tobacco use disorder Heart failure with mildly reduced ejection fraction (HFmrEF) Elevated blood pressure reading with diagnosis of hypertension Alcoholism with alcohol dependence Diabetes type 2, controlled Neuropathy History of non-ST elevation myocardial infarction (NSTEMI) Peripheral vascular disease Atrial fibrillation Hypertension CHF (congestive heart failure) EF 15-20% on 03/30 Surgical History Hx of umbilical hernia repair 07/05/23 lap repair of umbilical hernia with mesh- Dr Obrien History of implantable cardioverter-defibrillator (ICD) placement Family History Mother CAD (coronary artery disease) Social History Smoking and tobacco/nicotine status: current every day tobacco/nicotine user cigarettes [ Other cigarette details: 1.5 pack per day x 40 years, currently down to 3-4 cig/day] Alcohol intake: current Alcohol intake frequency: 3 or more drinks per day Alcohol type: beer Substance/Drug Use: former Date of last use: marijuana in 2021 Household members: children Marital status: Single Number of children: 2 Number of grandchildren: 0 Current occupational status: disabled Special duc needs: No Agree to transfusion: Yes Vitals/I&O/Wt Last Vital Signs Temp 97.6 F 01/30/25 12:00 Pulse 93 01/30/25 12:00 Resp 18 01/30/25 12:00 BP 156/99 01/30/25 12:00 Pulse Ox 98 01/30/25 12:00 O2 Del Method Room Air 01/30/25 12:00 Weight last 48 hrs Weight 79.832 kg Physical Exam 2 Const: COMMON NORMALS: no acute distress, patient oriented x3 and alert G ENERAL APPEARANCE: cooperative, comfortable and well kempt NUTRITIONAL APPEARANCE: overweight ORIENTATION/CONSCIOUSNESS: Yes awake, Yes oriented to person, Yes oriented to place and Yes oriented to time Eye: GENERAL EYE: appearance normal, both eyes and all related structures Neck/C-Spine: GENERAL: Yes normal visual inspection and Yes trachea midline Chest: CHEST: Yes Symmetrical chest wall rise Resp: COMMON NORMALS: normal respiratory effort EFFORT & INSPECTION: Yes able to speak in complete sentences and Yes symmetric chest movement Cardio: COMMON NORMALS: regular rate RATE: regular rate PERIPHERAL PULSES: dorsalis pedis present positive bilateral 2+ Extremity: RIGHT LOWER EXTREMITY: Yes lower leg Right lower leg: Yes inspection (Wound noted -see assessment; modest edema) and Yes neurovascular exam (Less than 3-second capillary refill) LEFT LOWER EXTREMITY: Yes lower leg Left lower leg: Yes inspection (Wounds noted -see assessment; modest edema) and Yes neurovascular exam (Less than 3-second capillary refill) Neuro: COMMON NORMALS: patient oriented x3 SENSORIUM/ORIENTATION: Yes alert, Yes oriented to person, Yes oriented to place and Yes oriented to time Psych: COMMON NORMALS: Normal thought process present and speech normal A PPEARANCE: Yes well kempt ACTIVITY/MOTOR BEHAVIOR: Yes appropriate eye contact SPEECH: Yes normal speech MOOD & AFFECT: Yes euthymic mood T HOUGHT PROCESS: Normal thought process present Skin: WOUNDS: Yes wounds noted (See wound assessments) Data 01/30/25 05:55 01/30/25 05:55 Micro: Microbiology 01/30/25 06:08 Blood Culture - Preliminary Blood SPECIMEN COLLECTED 01/30/25 06:02 Blood Culture - Preliminary Blood SPECIMEN COLLECTED A&P Assessment and plan (1) Venous stasis ulcer of right lower extremity: (2) Venous stasis ulcer of left lower extremity: Plan 2 layer wraps placed at wound care center were removed during the visit. He has less than 3-second capillary refill and palpable dorsalis pedis pulses bilaterally. Moderate to large amount of drainage noted upon dressing removal. Wounds do not appear acutely infected at this time. Wounds were cleansed with saline and gauze. Silvercel was applied to the wounds covered by an ABD pad secured with Kerlix and wrapped with an Jermaine bandage. His bandages should be changed daily. Mr. Ruggiero was educated to elevate his legs during his hospital stay. He is currently scheduled to follow-up at wound care on Sunday, February 03. He was encouraged to keep this appointment. Any further recommendations regarding wound care should be guided by hospitalist service. If Mr. Ruggiero is still admitted on Sunday, wound care will follow-up with him inpatient. If he has been discharged, he will follow-up with wound care outpatient on February 03. PDMP PDMP Reviewed: Not Reviewed Consult Attestations 2 Time Spent in Patient Care: 16 - 35 minutes Coding Level of Care Code Acute Code for Chg Fwd Diagnoses Venous stasis ulcer of right lower extremity I83.019; L97.919 Venous stasis ulcer of left lower extremity I83.029; L97.929 Wound Assessment Wound Assessment Wound Number 1 Lower Leg: Descriptor: Left and Anterior Primary Etiology:: Venous Ulcer Length: (cm): 2.5 cm Width: (cm): 3.5 cm Depth: (cm): 0.2 cm Epithelialization:: Small (1-33%) Tunneling:: No Undermining:: No Limited to Skin Breakdown: Yes Exudate Amount:: Medium Drainage Type: Serosanguineous Foul Odor After Cleansing:: No Slough/Fibrin?: Yes Granulation Amount: Medium (34-66%) Granulation Quality:: Red and [place] Necrotic Amount:: Medium (34-66%) Necrotic Type:: Adherent Slough Wound Number 2 Lower Leg: Descriptor: Left and Lateral Primary Etiology:: Venous Ulcer Length: (cm): 6 cm Width: (cm): 5.4 cm Depth: (cm): 0.4 cm Epithelialization:: Small (1-33%) Tunneling:: No Undermining:: No Limited to Skin Breakdown: No Exudate Amount:: Large Drainage Type: Serosanguineous Foul Odor After Cleansing:: No Slough/Fibrin?: Yes Granulation Amount: Large (67-100%) Granulation Quality:: Red Necrotic Amount:: Small (1-33%) Necrotic Type:: Adherent Slough Wound Number 3 Lower Leg: Descriptor: Left and Medial Primary Etiology:: Venous Ulcer Length: (cm): 2.5 cm Width: (cm): 1.3 cm Depth: (cm): 0.3 cm Epithelialization:: Small (1-33%) Tunneling:: No Undermining:: No Limited to Skin Breakdown: No Exudate Amount:: Medium Drainage Type: Serosanguineous Foul Odor After Cleansing:: No Slough/Fibrin?: Yes Granulation Amount: Medium (34-66%) Granulation Quality:: Red and [place] Necrotic Amount:: Medium (34-66%) Necrotic Type:: Adherent Slough Wound Number 4 Lower Leg: Descriptor: Right and Medial Primary Etiology:: Venous Ulcer Length: (cm): 7.5 cm Width: (cm): 4.5 cm Depth: (cm): 0.3 cm Epithelialization:: Small (1-33%) Tunneling:: No Undermining:: No Limited to Skin Breakdown: No Exudate Amount:: Large Drainage Type: Serosanguineous Foul Odor After Cleansing:: No Slough/Fibrin?: Yes Granulation Amount: Medium (34-66%) Granulation Quality:: Red and [place] Necrotic Amount:: Medium (34-66%) Necrotic Type:: Adherent Slough Wound Orders All Wounds: Left anterior lower leg, left lateral lower leg, left medial lower leg, right medial lower leg Dressing change frequency: Daily and Other (And as needed if strikethrough drainage is present) Wound Cleansing: Saline Primary Wound Care Dressing: Silvercel Secondary Wound Care Dressing: ABD pad, Kerlix, Jermaine bandage Bathing/Showering/Hygiene: May shower with protection but do not get dressing wet. Edema Control: Elevate legs to heart level for 30 mins daily and/or when sitting, Avoid standing for long periods of time and Other Edema Control Order/Instructions: (Jermaine bandage wrapped from base of toes to just below knee. Check frequently to ensure Jermaine bandage has not fallen down.)
--- NOTE | 2025-01-30 13:31 | USCV_ITS ---
Andrew Ruggiero Age: 59 Gender: M : 1965 Exam Date: 01/30/2025 15:30 Ordering Phys: Vin Kelsey MD Technologist: [place] [facility] [place]: cp ef BP: 156 / 99 HR: Rhythm: Sinus Technical Quality: Adequate MEASUREMENTS (Male / Female) Normal Values 2D ECHO LV Diastolic Diameter PLAX 4.4 cm 4.2 - 5.9 / 3.9 - 5.3 cm IVS Diastolic Thickness 1.3 cm 0.6 - 1.0 / 0.6 - 0.9 cm IVS Systolic Thickness 1.7 cm LVPW Diastolic Thickness 1.7 cm 0.6 - 1.0 / 0.6 - 0.9 cm LVPW Systolic Thickness 1.7 cm LVOT Diameter 2.0 cm LV Ejection Fraction 2D Teich 64.6 % LV Ejection Fraction MOD 4C 64.2 % LV Ejection Fraction MOD 2C 68.1 % LV Ejection Fraction 2C AL 69.9 % LA Diameter 4.1 cm Aorta at Sinotubular Diameter 2.6 cm M-MODE LA Ao Ratio MM 1.5 AV Cusp Separation MM 2.7 cm FINDINGS Left Ventricle Normal left ventricular size and systolic function, EF 64%. Mild left ventricular hypertrophy. No regional wall motion abnormalities. Right Ventricle Pacemaker wire in the right ventricle Right Atrium Pacemaker wire in the right atrium Left Atrium Mildly increased left atrial size. Mitral Valve No gross abnormalities noted Aortic Valve No gross abnormalities noted Tricuspid Valve No gross abnormalities noted Pulmonic Valve Pulmonic valve not well visualized. Pericardium Normal pericardium without effusion. Aorta Normal aortic annulus size. IVC Inferior vena cava not visualized. CONCLUSIONS Normal left ventricular size and systolic function, EF 64%. Mild left ventricular hypertrophy. No regional wall motion abnormalities. Mildly increased left atrial size. No gross morphological abnormalities in the valve There is no pericardial effusion. There are no intracardiac masses. Compared to the study from 11/22/2024, the LV ejection fraction appears to have improved Dr Hector Day MD [facility] (Electronically Signed) Final Date: 30 Jan 2025 19:05 S
--- NOTE | 2025-01-30 14:00 | ECG_ITS ---
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
[2025-01-30] MEDS: sacubitril/valsartan 24-26 mg Tablet 2 EACH PO (17:06)
[2025-01-30] MEDS: metoprolol succinate ER (24 HR) 100 mg Tablet 50 MG PO (17:07)
[2025-01-30] MEDS: apixaban 5 mg Tablet PO (17:07)
[2025-01-30 17:20] LABS: Glucose Point of Care 121 mg/dL (70-110)
[2025-01-30 18:26] LABS: Troponin 5 6HR 13.16 ng/L (0-15)
[2025-01-30 18:41] LABS: Troponin 5 6HR Delta -1.84 ng/L (0-12)
[2025-01-30 20:15] LABS: Glucose Point of Care 203 mg/dL (70-110)
[2025-01-30] MEDS: ATORVASTATIN 10 MG TABLET PO (20:19)
[2025-01-30] MEDS: insulin lispro 100 unit/1 mL SUBCUT (20:19)
[2025-01-31] VITALS (10 sets, daily range): BP systolic 118–159; BP diastolic 69–83; PULSE 60–76; RESP 13–22; TEMP 36.6–36.9; O2SAT 95–98
[2025-01-31 03:39] LABS: Basophils % 0.4 %; Eosinophils # 0.2 10^3/uL (0.0-0.8); Eosinophils % 4.7 %; Hematocrit 43.6 % (37-53); Lymphocytes # 1.7 10^3/uL (0.8-4.8); Lymphocytes % 34.3 %; Mean Corpuscular HGB Conc 31.2 g/dL (30-55); Mean Corpuscular Hemoglobin 26.3 pg (27-33); Mean Corpuscular Volume 84.3 fl (82-101); Mean Platelet Volume 11.1 fL (7.4-10.4); Monocytes # 0.4 10^3/uL (0.2-0.9); Monocytes % 7.7 %; Neutrophils # 2.69 10^3/uL (1.8-7.7); Neutrophils % 52.9 %; Nucleated Red Blood Cells % 0 %; Platelet Count 145 10^3/cmm (157-399); Red Blood Count 5.17 10^6/uL (3.85-5.65); Red Cell Distribution Width 16.5 % (12.1-15.1); White Blood Count 5.08 10^3/uL (3.29-11.43)
[2025-01-31 03:59] LABS: Alanine Aminotransferase 28 U/L (0-41); Albumin Level 3.3 g/dL (3.5-5.2); Alkaline Phosphatase 93 U/L (40-130); Anion Gap 15.2 (5-19); Aspartate Amino Transferase 29 U/L (0-40); Blood Urea Nitrogen 8 mg/dL (6-20); Calcium 8.4 mg/dL (8.5-10.5); Carbon Dioxide 21 mmol/L (22-29); Chloride 109 mmol/L (98-107); Creatinine Clr Calc Pharmacy 115.8738; Globulin 3.4 g/dL (1.3-4.6); Glomerular Filtration Rate 115.8 mL/min (90-130); Glucose 107 mg/dL (65-115); Osmolality Calculated 291 mOsm/kg (285-295); Potassium 4.2 mmol/L (3.5-5.1); Sodium 141 mmol/L (136-145); Total Bilirubin 0.5 mg/dL (0.15-1.2); Total Protein 6.7 g/dL (6.6-8.7)
[2025-01-31 06:10] LABS: Glucose Point of Care 136 mg/dL (70-110)
[2025-01-31] MEDS: thiamine 100 mg Tablet PO (09:59)
[2025-01-31] MEDS: aspirin 81 mg EC Tablet PO (09:59)
[2025-01-31] MEDS: apixaban 5 mg Tablet PO ×2 (09:59→17:49)
[2025-01-31] MEDS: multivitamin therapeutic Tablet 1 TAB PO (10:00)
[2025-01-31] MEDS: spironolactone 25 mg Tablet 12.5 MG PO (10:00)
[2025-01-31] MEDS: metoprolol succinate ER (24 HR) 100 mg Tablet 50 MG PO ×2 (10:01→17:48)
[2025-01-31] MEDS: sacubitril/valsartan 24-26 mg Tablet 2 EACH PO ×2 (10:04→17:48)
[2025-01-31 11:43] LABS: Glucose Point of Care 121 mg/dL (70-110)
--- NOTE | 2025-01-31 12:57 | PC.NURSE ---
pt's neighbor,ita tong,called.states that mr lou moved in with her after pt's son kicked him out .she states pt will have her home to come to after discharge.
--- OUTSIDE RECORDS SUMMARY | 2025-01-31 13:22 | XMS_ITS | Patient Health Record ---
Author Organization [facility] Address [address], [place] [id number] Care Team Providers Care Weight Loss Physician Name Role Phone Zack Geller Primary Care Provider [phone] DaughertyLauro marieen Unavailable [phone] Loreto Ahn Unavailable [phone] Allergies No Known Allergies Results Component Value Reference Range Notes Electrolyte Panel [[id number]] Reviewed date:04/01/2024 08:13:14 AM Interpretation: Performing Lab:[facility], [facility], Phone - [phone], Director - [facility] Notes/Report: Sodium 140 134-144 mmol/L Potassium 4.2 3.5-5.2 mmol/L Chloride 103 96-106 mmol/L Carbon Dioxide, Total 19 20-29 mmol/L HgbA1C [[id number]] Reviewed date:07/23/2024 08:08:50 AM Interpretation:7.7 Performing Lab:[facility], [facility], Phone - [phone], Director - [facility] Notes/Report: Hemoglobin A1c 7.7 4.8-5.6 % Glycemic control for adults with diabetes: <7.0 Prediabetes: 5.7 - 6.4 Diabetes: >6.4 . Reason For Referral No Information Medications Medication SIG (Take, Route, Frequency, Duration) Notes Start Date End Date Status Linezolid 600 MG 1 tablet Orally every 12 hrs Active Albuterol Sulfate (2.5 MG/3ML) 0.083% 3 ml as needed Inhalation every 6 hrs Active Eliquis 5 MG 1 tablet Orally twice a day for 30 days Active Lantus 100 UNIT/ML give 15 units Subcutaneous daily for 30 days E11.65-- QUANTITY = 2 PENS 07/02/2024 Active Albuterol Sulfate HFA 108 (90 Base) MCG/ACT 2 puffs as needed Inhalation every 6 hrs 11/15/2020 Active Vitamin B-1 100 MG 1 tablet Orally Once a day Active Budesonide-Formoterol Fumarate 160-4.5 MCG/ACT 2 puffs Inhalation Twice a day Active metFORMIN HCl 500 MG 1 tablet with a meal Orally 2 times a day for 90 days need refill Active Minocycline HCl 100 MG 1 capsule Orally Once a day Active Pen [place] 30G X 5 MM 1 needle once a day for 30 days 07/26/2020 Active Spironolactone 25 MG 0.5 tablet Orally Once a day for 90 days refill Active Furosemide 40 MG 1 tab Orally Once a day for 30 days Not-Taking Atorvastatin Calcium 10 MG 1 tablet Orally Once a day for 90 days Active Metoprolol Succinate ER 100 MG TAKE 1/2 TABLET BY MOUTH TWICE DAILY for 90 Active Entresto 24-26 MG 1 tablet Orally Twice a day for 30 days Active Potassium Chloride ER 10 MEQ TAKE 1 CAPSULE BY MOUTH DAILY WITH FOOD for 90 needs refill Active Jardiance 10 MG 1 tablet Orally Once a day for 30 days needs refill Active Plavix 75 MG 1 tablet Orally Once a day Not-Taking Immunizations Vaccine Route Administration Date Status Comme nts Twinrix adult (Hep A and Hep B) IM Intramuscular 10/28/2013 Administered Social History Tobacco Use: Social History Observation Description Date Details (start date - stop date) Current Smoker NA - NA Sex Assigned At : Social History Observation Description Sex Assigned At Male Tobacco Control (Standard) Question Answer Notes Tobacco use: Current smoker How often do you smoke cigarettes? Every day How many cigarettes a day do you smoke? 5 or les s How soon after you wake up d o you smoke your first cigarette? 31-60 minutes Are you interested in quitting? 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) Active confirmed Problem 04748193 Alcohol abuse (F10.10) Active confirmed Problem 914065333 Tobacco abuse (Z72.0) Active confirmed Problem 86312500 Essential hypertension (I10) Active confirmed Problem 97422638 Type 2 diabetes mellitus with other specified complication (E11.69) Active confirmed Problem 21108330101277582 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) Active confirmed Problem 177621415 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 (I83.019) Active confirmed Problem 58852179409696560 Varicose veins of left 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) Active confirmed Problem 410194706 Varicose veins of left lower extremity with ulcer of unspecified site (I83.029) Active confirmed Problem 66408598497570268 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) Active confirmed Problem 40990973889141759 Non-pressure chronic ulcer of left calf with unspecified severity (L97.229) Active confirmed Problem 65262380 Non-pressure chronic ulcer of unspecified part of right lower leg with unspecified severity (L97.919) Active confirmed Problem 64080931 Non-pressure chronic ulcer of unspecified part of left lower leg with unspecified severity (L97.929) Active confirmed Problem 62998431 Chronic obstructive pulmonary disease, unspecified COPD type (J44.9) Active confirmed Problem 246556721178261 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) Active confirmed Problem 981883118 Deep vein thrombosis (DVT) of lower extremity, unspecified chronicity, unspecified laterality, unspecified vein (I82.409) Active confirmed Vital Signs Temperature 97.8 degrees Fahrenheit 08/19/2024 Oximetry 97 08/19/2024 Blood pressure diastolic 77 mm Hg 08/19/2024 Height 65 in 08/19/2024 Blood pressure systolic 124 mm Hg 08/19/2024 Weight 181.0 lbs 08/19/2024 BMI 30.12 kg/m2 08/19/2024 Encounters Encounter Location Date Provider [facility] [address] [place] [address] [id number] 03/31/2024 Loreto Ahn Chest pain of unknow n etiology R07.9 ; Hypokalemia E87.6 ; Chronic combined systolic and diastolic heart failure I50.42 and Type 2 diabetes mellitus with other specified complication E11.69 [facility] [address] [place] [address] [id number] 06/30/2024 Amanda Daugherty Chronic combined systolic and diastolic heart failure I50.42 and Type 2 diabetes mellitus with other specified complication E11.69 [facility] [address] [place] [address] [id number] 07/02/2024 Zack Geller Chronic combined systolic and diastolic heart failure I50.42 [facility] [address] [place] [address] [id number] 07/22/2024 Loreto Ahn Type 2 diabetes mellitus with other specified complication E11.69 ; Cellulitis of right lower extremity L03.115 ; Varicose veins of right lower extremity with ulcer of calf I83.012 ; Non-pressure chronic ulcer of right calf with fat layer exposed L97.212 ; Varicose veins of left lower extremity with ulcer of calf I83.022 and Non-pressure chronic ulcer of left calf with unspecified severity L97.229 [facility] [address] [place] [address] [id number] 08/19/2024 Loreto Ahn Open wounds involvin g multiple regions of lower extremity with complication S81.809A [facility] [address] [place] [address] [id number] 05/08/2024 Zack Geller [facility] [address] [place] [address] [id number] 06/13/2024 Zackmaylin Geller [facility] [address] [place] [address] [id number] 07/01/2024 Zack Duyen Type 2 diabetes mellitus with other specified complication E11.69 [facility] [address] [place] [address] [id number] 07/02/2024 Zack Geller [facility] [address] [place] [address] [id number] 07/08/2024 Zack Geller [facility] [address] [place] [address] [id number] 07/23/2024 Zack Geller Assessments Encounter Date Diagnosis (ICD Code) Assessment Notes Treatment Notes Treatment Clinical Notes Section Notes 03/31/2024 Chest pain of unknown etiology (ICD-10 - R07.9) resolved 06/30/2024 Type 2 diabetes mellitus with other specified complication (ICD-10 - E11.69) 06/30/2024 Chronic combined systolic and diastolic heart failure (ICD-10 - I50.42) 07/01/2024 Type 2 diabetes mellitus with other specified complication (ICD-10 - E11.69) 07/02/2024 Chronic combined systolic and diastolic heart failure (ICD-10 - I50.42) 07/22/2024 Type 2 diabetes mellitus with other specified complication (ICD-10 - E11.69) 03/31/2024 Hypokalemia (ICD-10 - E87.6) 07/22/2024 Cellulitis of right lower extremity (ICD-10 - L03.115) resolving 08/19/2024 Open wounds involving multiple regions of lower extremity with complication (ICD-10 - S81.809A) Continue Antibiotics Follow with Wound Care As scheduled Keep appointments with Infectious Disease 03/31/2024 Chronic combined systolic and diastolic heart failure (ICD-10 - I50.42) 07/22/2024 Varicose veins of right lower extremity with ulcer of calf (ICD-10 - I83.012) continue wound care 07/22/2024 Non-pressure chronic ulcer of right calf with fat layer exposed (ICD-10 - L97.212) continue wound care 03/31/2024 Type 2 diabetes mellitus with other specified complication (ICD-10 - E11.69) 07/22/2024 Varicose veins of left lower extremity with ulcer of calf (ICD-10 - I83.022) continue wound care 07/22/2024 Non-pressure chronic ulcer of left calf with unspecified severity (ICD-10 - L97.229) continue wound care Plan Of Treatment No Information Insurance Providers Payer Name Payer Address Payer Phone Subscriber Number Group Number Insured Name Patient Relationship to Insured Coverage Start Date Coverage End Date [facility] [id number] [place], [place] [id number] [phone] [id number] Andrew Ruggiero Self - patient is the insured 1 Medical (General) History Medical History History ICD Code Chronic LE wounds Hypertension Combined systolic and diastolic heart fa ilure Diabetes mellitus Hospitalization History Reason Date(Month/Year) [facility]-chest pain and dizziness 03/26/24 heart failure 07/13/2020 [facility] right foot 08/28/2013
--- NOTE | 2025-01-31 13:35 | P.PN_ITS ---
Subjective 2 Subjective: seen this am no acute events overnight seen by wound care Vitals/I&O/Wt Last Vital Signs Temp 97.8 F 01/31/25 11:39 Pulse 60 01/31/25 11:39 Resp 16 01/31/25 11:39 BP 143/73 01/31/25 11:39 Pulse Ox 97 01/31/25 11:39 O2 Del Method Room Air 01/31/25 11:39 01/30/25 01/31/25 01/31/25 22:59 06:59 14:59 Intake Total 120 / 360 100 / 460 960 / 960 Output Total 660 / 660 900 / 1560 300 / 300 Balance -540 / -300 -800 / -1100 660 / 660 Weight last 48 hrs Weight 78.2 kg Weight 78.9 kg Weight 79.832 kg Physical Exam 2 Const: COMMON NORMALS: patient oriented x3 and alert GENERAL APPEARANCE: c ooperative ORIENTATION/CONSCIOUSNESS: Yes awake HENMT: COMMON NORMALS: oropharynx normal Neck/C-Spine: COMMON NORMALS: no JVD Resp: COMMON NORMALS: normal respiratory effort and clear to auscultation bilaterally AUSCULTATION: clear to auscultation bilaterally Cardio: COMMON NORMALS: no JVD, regular rhythm, S1 normal heart sound present, S2 normal heart sound present and No murmurs present (Cardio) RHYTHM: regular rhythm HEART SOUNDS: S1 normal heart sound present and S2 normal heart sound present GI: COMMON NORMALS: Normal to inspection, nondistended, normoactive bowel sounds present, Soft to palpation and non-tender PALPATION: Yes Soft to palpation Extremity: COMMON NORMALS: no joint enlargement and no pedal edema Neuro: COMMON NORMALS: patient oriented x3 and moves all extremities S ENSORIUM/ORIENTATION: Yes alert Skin: COMMON NORMALS: no rashes or lesions noted NARRATIVE SKIN EXAM: Venous stasis ulcers under compression wraps GENERAL SKIN EXAM: no rashes or lesions noted Data 01/31/25 02:52 01/31/25 02:52 Micro: Microbiology 01/30/25 06:08 Blood Culture - Preliminary Blood NEGATIVE TO DATE 01/30/25 06:02 Blood Culture - Preliminary Blood NEGATIVE TO DATE A&P Assessment and plan (1) Chest pain: Left sided chest pain, radiating to L arm. W Hx CAD, CHF, S/P icd, AFib, reports PAD, smoking. Reviewed trop, EKG, on my interpretation paced rhythm, pending official read. BNP, CBC, CMP, CXR, ER provider note, discussed with ER provider. Symptoms improved but not resolved entirely at this point. Complete trop and EKG series. Obtain limited TTE. Discussed with him subsequent additional risk stratification, possibly stress test with which he is agreeable, although it is not available over the weekend. He has had a stress test in the past. Requested DDimer. Noted abnormal on review. Requesting additional assessment with CTA. Plan CHF: Chronic systolic CHF, status post ICD, not currently in exacerbation. Continue Entresto. Spironolactone. Smoking: Discussed more consideration for 3 and half minutes with him, he had cut down quite significantly from about a pack a day down to 3 to 4 cigarettes a day. Discussed with him risks of continued smoking, encouraged continued cessation efforts. Will provide nicotine replacement as needed. DM2: Monitor POC glucose, SSI, consider carbohydrate diet. HTN: Monitor blood pressure, continue metoprolol, Entresto, spironolactone. A-fib: Continue Eliquis, metoprolol Daily alcohol: She drinks up to 2 tall cans of beer daily.Continue thiamine. 01/31/2025 appreciate wound care consult plan for stress test sunday echo shows improved EF, no RWM abnormalities rest of mgmt as per assessment and plan above PDMP PDMP Reviewed: Not Reviewed Attestations 2 Medical Necessity Statement*: Place in observation for additional assessment management of chest pain and gentleman with underlying CAD, additional comorbidities as above. Diagnoses Chest pain R07.9
[2025-01-31 16:44] LABS: Glucose Point of Care 115 mg/dL (70-110)
[2025-01-31 20:13] LABS: Glucose Point of Care 140 mg/dL (70-110)
[2025-01-31] MEDS: ATORVASTATIN 10 MG TABLET PO (20:47)
[2025-02-01] VITALS (7 sets, daily range): BP systolic 129–152; BP diastolic 67–83; PULSE 60–64; RESP 15–21; TEMP 36.4–36.8; O2SAT 95–100
[2025-02-01 04:15] LABS: Basophils % 0.4 %; Eosinophils # 0.3 10^3/uL (0.0-0.8); Eosinophils % 4.9 %; Lymphocytes # 1.9 10^3/uL (0.8-4.8); Lymphocytes % 34.2 %; Mean Corpuscular HGB Conc 31.3 g/dL (30-55); Mean Corpuscular Hemoglobin 26.3 pg (27-33); Mean Corpuscular Volume 83.9 fl (82-101); Monocytes # 0.5 10^3/uL (0.2-0.9); Monocytes % 8.4 %; Neutrophils # 2.86 10^3/uL (1.8-7.7); Neutrophils % 51.9 %; Nucleated Red Blood Cells % 0 %; Platelet Count 148 10^3/cmm (157-399); Red Blood Count 5.48 10^6/uL (3.85-5.65); Red Cell Distribution Width 16.4 % (12.1-15.1)
[2025-02-01 04:37] LABS: Alanine Aminotransferase 29 U/L (0-41); Albumin Level 3.4 g/dL (3.5-5.2); Alkaline Phosphatase 105 U/L (40-130); Aspartate Amino Transferase 33 U/L (0-40); Blood Urea Nitrogen 9 mg/dL (6-20); Calcium 8.8 mg/dL (8.5-10.5); Carbon Dioxide 22 mmol/L (22-29); Chloride 106 mmol/L (98-107); Creatinine Clr Calc Pharmacy 115.4183; Globulin 3.9 g/dL (1.3-4.6); Glomerular Filtration Rate 115.8 mL/min (90-130); Glucose 127 mg/dL (65-115); Osmolality Calculated 286 mOsm/kg (285-295); Sodium 138 mmol/L (136-145); Total Bilirubin 0.6 mg/dL (0.15-1.2); Total Protein 7.3 g/dL (6.6-8.7)
[2025-02-01 05:59] LABS: Glucose Point of Care 131 mg/dL (70-110)
[2025-02-01] MEDS: aspirin 81 mg EC Tablet PO (09:05)
[2025-02-01] MEDS: metoprolol succinate ER (24 HR) 100 mg Tablet 50 MG PO ×2 (09:05→17:19)
[2025-02-01] MEDS: sacubitril/valsartan 24-26 mg Tablet 2 EACH PO ×2 (09:05→17:20)
[2025-02-01] MEDS: spironolactone 25 mg Tablet 12.5 MG PO (09:06)
[2025-02-01] MEDS: folic acid 1 mg Tablet PO (09:07)
[2025-02-01] MEDS: thiamine 100 mg Tablet PO (09:07)
[2025-02-01] MEDS: multivitamin therapeutic Tablet 1 TAB PO (09:07)
[2025-02-01] MEDS: apixaban 5 mg Tablet PO ×2 (09:07→17:20)
[2025-02-01 11:04] LABS: Glucose Point of Care 150 mg/dL (70-110)
[2025-02-01] MEDS: insulin lispro 100 unit/1 mL SUBCUT ×2 (12:13→20:54)
--- NOTE | 2025-02-01 12:13 | P.PN_ITS ---
Subjective 2 Subjective: seen this morning denies chest pain plan for stress test tomorrow Vitals/I&O/Wt Last Vital Signs Temp 98.1 F 02/01/25 11:22 Pulse 60 02/01/25 11:22 Resp 15 02/01/25 11:22 BP 136/77 02/01/25 11:22 Pulse Ox 97 02/01/25 11:22 O2 Del Method Room Air 02/01/25 07:51 01/31/25 02/01/25 02/01/25 22:59 06:59 14:59 Intake Total 560 / 1520 300 / 1820 480 / 480 Output Total 1050 / 1350 500 / 1850 850 / 850 Balance -490 / 170 -200 / -30 -370 / -370 Weight last 48 hrs Weight 78.4 kg Weight 78.2 kg Physical Exam 2 Const: COMMON NORMALS: patient oriented x3 and alert GENERAL APPEARANCE: c ooperative ORIENTATION/CONSCIOUSNESS: Yes awake HENMT: COMMON NORMALS: oropharynx normal Neck/C-Spine: COMMON NORMALS: no JVD Resp: COMMON NORMALS: normal respiratory effort and clear to auscultation bilaterally AUSCULTATION: clear to auscultation bilaterally Cardio: COMMON NORMALS: no JVD, regular rhythm, S1 normal heart sound present, S2 normal heart sound present and No murmurs present (Cardio) RHYTHM: regular rhythm HEART SOUNDS: S1 normal heart sound present and S2 normal heart sound present GI: COMMON NORMALS: Normal to inspection, nondistended, normoactive bowel sounds present, Soft to palpation and non-tender PALPATION: Yes Soft to palpation Extremity: COMMON NORMALS: no joint enlargement and no pedal edema Neuro: COMMON NORMALS: patient oriented x3 and moves all extremities S ENSORIUM/ORIENTATION: Yes alert Skin: COMMON NORMALS: no rashes or lesions noted NARRATIVE SKIN EXAM: both legs under compression wraps GENERAL SKIN EXAM: no rashes or lesions noted Data 02/01/25 03:52 02/01/25 03:52 A&P Assessment and plan (1) Chest pain: Left sided chest pain, radiating to L arm. W Hx CAD, CHF, S/P icd, AFib, reports PAD, smoking. Reviewed trop, EKG, on my interpretation paced rhythm, pending official read. BNP, CBC, CMP, CXR, ER provider note, discussed with ER provider. Symptoms improved but not resolved entirely at this point. Complete trop and EKG series. Obtain limited TTE. Discussed with him subsequent additional risk stratification, possibly stress test with which he is agreeable, although it is not available over the weekend. He has had a stress test in the past. Requested DDimer. Noted abnormal on review. Requesting additional assessment with CTA. Plan CHF: Chronic systolic CHF, status post ICD, not currently in exacerbation. Continue Entresto. Spironolactone. Smoking: Discussed more consideration for 3 and half minutes with him, he had cut down quite significantly from about a pack a day down to 3 to 4 cigarettes a day. Discussed with him risks of continued smoking, encouraged continued cessation efforts. Will provide nicotine replacement as needed. DM2: Monitor POC glucose, SSI, consider carbohydrate diet. HTN: Monitor blood pressure, continue metoprolol, Entresto, spironolactone. A-fib: Continue Eliquis, metoprolol Daily alcohol: She drinks up to 2 tall cans of beer daily.Continue thiamine. 01/31/2025 appreciate wound care consult plan for stress test sunday echo shows improved EF, no RWM abnormalities rest of mgmt as per assessment and plan above 02/01/2025 will need wound care follow up at discharge plan for stress test in AM echo shows improved EF npo at midnight tonight PDMP PDMP Reviewed: Not Reviewed Attestations 2 Medical Necessity Statement*: Place in observation for additional assessment management of chest pain and gentleman with underlying CAD, additional comorbidities as above. Diagnoses Chest pain R07.9
[2025-02-01 16:49] LABS: Glucose Point of Care 131 mg/dL (70-110)
[2025-02-01 20:52] LABS: Glucose Point of Care 239 mg/dL (70-110)
[2025-02-01] MEDS: ATORVASTATIN 10 MG TABLET PO (20:54)
[2025-02-02] VITALS (7 sets, daily range): BP systolic 119–174; BP diastolic 66–90; PULSE 60–73; RESP 16–18; TEMP 36.4–36.7; O2SAT 96–99
[2025-02-02 06:04] LABS: Basophils % 0.5 %; Eosinophils # 0.3 10^3/uL (0.0-0.8); Eosinophils % 4.5 %; Hematocrit 47.1 % (37-53); Lymphocytes # 2.1 10^3/uL (0.8-4.8); Lymphocytes % 37.5 %; Mean Corpuscular Hemoglobin 25.9 pg (27-33); Mean Corpuscular Volume 83.7 fl (82-101); Mean Platelet Volume 10.3 fL (7.4-10.4); Monocytes # 0.5 10^3/uL (0.2-0.9); Monocytes % 8.1 %; Neutrophils # 2.73 10^3/uL (1.8-7.7); Neutrophils % 49.2 %; Nucleated Red Blood Cells % 0 %; Platelet Count 153 10^3/cmm (157-399); Red Blood Count 5.63 10^6/uL (3.85-5.65); Red Cell Distribution Width 16.1 % (12.1-15.1); White Blood Count 5.55 10^3/uL (3.29-11.43)
[2025-02-02 06:18] LABS: Glucose Point of Care 118 mg/dL (70-110)
[2025-02-02 06:34] LABS: Alanine Aminotransferase 33 U/L (0-41); Albumin Level 3.7 g/dL (3.5-5.2); Alkaline Phosphatase 105 U/L (40-130); Anion Gap 17.2 (5-19); Aspartate Amino Transferase 34 U/L (0-40); Blood Urea Nitrogen 11 mg/dL (6-20); Calcium 8.8 mg/dL (8.5-10.5); Carbon Dioxide 20 mmol/L (22-29); Chloride 106 mmol/L (98-107); Creatinine Clr Calc Pharmacy 115.4183; Globulin 3.7 g/dL (1.3-4.6); Glomerular Filtration Rate 115.8 mL/min (90-130); Glucose 111 mg/dL (65-115); Osmolality Calculated 288 mOsm/kg (285-295); Potassium 4.2 mmol/L (3.5-5.1); Sodium 139 mmol/L (136-145); Total Bilirubin 0.5 mg/dL (0.15-1.2); Total Protein 7.4 g/dL (6.6-8.7)
[2025-02-02] MEDS: regadenoson 0.4 Mg/5 ml Syringe IVP (07:28)
--- NOTE | 2025-02-02 07:29 | PC.NURSE ---
Patient at stress test at shift change.
--- NOTE | 2025-02-02 08:40 | PC.NURSE ---
Patient returned from stress test at 0840.
[2025-02-02] MEDS: thiamine 100 mg Tablet PO (09:10)
[2025-02-02] MEDS: apixaban 5 mg Tablet PO (09:11)
[2025-02-02] MEDS: metoprolol succinate ER (24 HR) 100 mg Tablet 50 MG PO (09:11)
[2025-02-02] MEDS: aspirin 81 mg EC Tablet PO (09:11)
[2025-02-02] MEDS: sacubitril/valsartan 24-26 mg Tablet 2 EACH PO (09:11)
[2025-02-02] MEDS: multivitamin therapeutic Tablet 1 TAB PO (09:11)
[2025-02-02] MEDS: spironolactone 25 mg Tablet 12.5 MG PO (09:11)
[2025-02-02] MEDS: folic acid 1 mg Tablet PO (09:11)
--- NOTE | 2025-02-02 10:59 | P.PN_ITS ---
Subjective 2 Subjective: Seen this morning. No acute events overnight. Was seen by wound care. Patient returned from stress test this morning. Vitals/I&O/Wt Last Vital Signs Temp 97.6 F 02/02/25 09:00 Pulse 60 02/02/25 09:00 Resp 16 02/02/25 09:00 BP 137/80 02/02/25 09:00 Pulse Ox 97 02/02/25 09:00 O2 Del Method Room Air 02/02/25 09:00 02/01/25 02/02/25 02/02/25 22:59 06:59 14:59 Output Total 250 / 1100 650 / 1750 Balance -250 / -620 -650 / -1270 Weight last 48 hrs Weight 78.2 kg Weight 78.4 kg Physical Exam 2 Const: COMMON NORMALS: patient oriented x3 and alert GENERAL APPEARANCE: c ooperative ORIENTATION/CONSCIOUSNESS: Yes awake HENMT: COMMON NORMALS: oropharynx normal Neck/C-Spine: COMMON NORMALS: no JVD Resp: COMMON NORMALS: normal respiratory effort and clear to auscultation bilaterally AUSCULTATION: clear to auscultation bilaterally Cardio: COMMON NORMALS: no JVD, regular rhythm, S1 normal heart sound present, S2 normal heart sound present and No murmurs present (Cardio) RHYTHM: regular rhythm HEART SOUNDS: S1 normal heart sound present and S2 normal heart sound present GI: COMMON NORMALS: Normal to inspection, nondistended, normoactive bowel sounds present, Soft to palpation and non-tender PALPATION: Yes Soft to palpation Extremity: COMMON NORMALS: no joint enlargement and no pedal edema Neuro: COMMON NORMALS: patient oriented x3 and moves all extremities S ENSORIUM/ORIENTATION: Yes alert Skin: COMMON NORMALS: no rashes or lesions noted NARRATIVE SKIN EXAM: both legs under compression wraps GENERAL SKIN EXAM: no rashes or lesions noted Data 02/02/25 05:53 02/02/25 05:53 A&P Assessment and plan (1) Chest pain: Left sided chest pain, radiating to L arm. W Hx CAD, CHF, S/P icd, AFib, reports PAD, smoking. Reviewed trop, EKG, on my interpretation paced rhythm, pending official read. BNP, CBC, CMP, CXR, ER provider note, discussed with ER provider. Symptoms improved but not resolved entirely at this point. Complete trop and EKG series. Obtain limited TTE. Discussed with him subsequent additional risk stratification, possibly stress test with which he is agreeable, although it is not available over the weekend. He has had a stress test in the past. Requested DDimer. Noted abnormal on review. Requesting additional assessment with CTA. Plan CHF: Chronic systolic CHF, status post ICD, not currently in exacerbation. Continue Entresto. Spironolactone. Smoking: Discussed more consideration for 3 and half minutes with him, he had cut down quite significantly from about a pack a day down to 3 to 4 cigarettes a day. Discussed with him risks of continued smoking, encouraged continued cessation efforts. Will provide nicotine replacement as needed. DM2: Monitor POC glucose, SSI, consider carbohydrate diet. HTN: Monitor blood pressure, continue metoprolol, Entresto, spironolactone. A-fib: Continue Eliquis, metoprolol Daily alcohol: She drinks up to 2 tall cans of beer daily.Continue thiamine. 01/31/2025 appreciate wound care consult plan for stress test sunday echo shows improved EF, no RWM abnormalities rest of mgmt as per assessment and plan above 02/01/2025 will need wound care follow up at discharge plan for stress test in AM echo shows improved EF npo at midnight tonight 02/02/2025 Awaiting results from stress test. Will need to follow-up with wound care at discharge. Continue ABD Kerlix Jermaine bandage. Change dressing daily. He denies chest pain at this time. Vitals are stable. Will go ahead and change bandage today. If stress test is negative he may be able to discharge home. However in case of stress test being positive we will consult cardiology for further recommendations. PDMP PDMP Reviewed: Not Reviewed Attestations 2 Medical Necessity Statement*: Awaiting stress test results. Potential discharge today if stress test is negative. Diagnoses Chest pain R07.9
[2025-02-02 11:27] LABS: Glucose Point of Care 220 mg/dL (70-110)
[2025-02-02] MEDS: insulin lispro 100 unit/1 mL SUBCUT (12:12)
--- NOTE | 2025-02-02 12:18 | NMCV_ITS ---
NM angelita perf SPECT r/s* [id number] Andrew Ruggiero Age: 59 Gender: M : 1965 Exam Date: 02/02/2025 06:30 Ordering Phys: Elena Hernandez MD Technologist: NICOLA Farris Exam Location: [facility] Indications: cp STRESS TEST Please see separate stress test report in [facility] for full findings IMAGE PROTOCOL Rest/Stress 1 Radiopharmaceutical Dose (mCi) Administration Site Administered by Rest: Tc-99m 11 IV Clara Rabago, [employer]ATOR Sestamibi Stress:Tc-99m 32.4 IV Clara Rabago, [employer] OPERATOR Sestamibi Rest: 02-Feb-2025 60 Discovery 630 Stress: 02-Feb-2025 30 Discovery 630 Radiopharmaceutical was injected at 100% maximum heart rate. Supine position only as patient was unable to lay prone. SPECT RESULTS Technical Quality: Good Raw Data Analysis: Normal Image Corrections: No attenuation or motion correction applied Summed Stress Score: 5 Summed Rest Score: 6 Summed Difference Score: 0 PERFUSION FINDINGS There is a small to medium sized area of partially reversible perfusion defect seen in inferolateral wall. This is consistent with small to medium sized area of prior infarct with minimal harini-infarct ischemia seen in the left circumflex artery territory. FUNCTIONAL RESULTS (calculated via Gated SPECT) Stress Image LV EF (%): 60 Stress EDV (mL):127 TID: 1.21 Stress ESV (mL):51 FUNCTIONAL FINDINGS: There is normal left ventricular systolic function. TID ratio is elevated. IMPRESSIONS 1. Small to medium sized area of prior infarct with minimal harini-infarct ischemia seen in left circumflex artery territory. 2. LV systolic function is normal. 3. TID ratio is elevated. Ismael Sue MD (Electronically Signed) Final Date: 02 Feb 2025 12:40 S
--- NOTE | 2025-02-02 13:10 | P.PN_ITS ---
Subjective 2 Subjective: Mr. Ruggiero was evaluated at bedside today on the cardiac stepdown unit. He is in good spirits today. He had a stress test performed this morning and a cardiology evaluation. I spoke with Dr. Hernandez and she plans to discharge him today. His dressings are clean, dry, and intact. Vitals/I&O/Wt Last Vital Signs Temp 97.6 F 02/02/25 12:00 Pulse 60 02/02/25 12:00 Resp 18 02/02/25 12:00 BP 159/87 02/02/25 12:00 Pulse Ox 97 02/02/25 12:00 O2 Del Method Room Air 02/02/25 12:00 02/01/25 02/02/25 02/02/25 22:59 06:59 14:59 Intake Total 840 / 840 Output Total 250 / 1100 650 / 1750 550 / 550 Balance -250 / -620 -650 / -1270 290 / 290 Weight last 48 hrs Weight 78.2 kg Weight 78.4 kg Physical Exam 2 Const: COMMON NORMALS: no acute distress, patient oriented x3 and alert G ENERAL APPEARANCE: cooperative, comfortable and well kempt NUTRITIONAL APPEARANCE: overweight ORIENTATION/CONSCIOUSNESS: Yes awake, Yes oriented to person, Yes oriented to place and Yes oriented to time HENMT: COMMON NORMALS: Normal external nose present NOSE: Normal external nose present Eye: GENERAL EYE: appearance normal, both eyes and all related structures Neck/C-Spine: GENERAL: Yes normal visual inspection and Yes trachea midline Chest: CHEST: Yes Symmetrical chest wall rise Resp: COMMON NORMALS: normal respiratory effort EFFORT & INSPECTION: Yes able to speak in complete sentences and Yes symmetric chest movement Cardio: COMMON NORMALS: regular rate RATE: regular rate PERIPHERAL PULSES: dorsalis pedis present positive bilateral 2+ Extremity: COMMON NORMALS: no calf tenderness RIGHT LOWER EXTREMITY: Yes lower leg Right lower leg: Yes inspection (Wound noted -see assessment; modest edema) and Yes neurovascular exam (Less than 3-second capillary refill) LEFT LOWER EXTREMITY: Yes lower leg Left lower leg: Yes inspection (Wounds noted -see assessment; modest edema) and Yes neurovascular exam (Less than 3-second capillary refill) Neuro: COMMON NORMALS: patient oriented x3 SENSORIUM/ORIENTATION: Yes alert, Yes oriented to person, Yes oriented to place and Yes oriented to time SPEECH: speech normal Psych: COMMON NORMALS: Normal thought process present and speech normal A PPEARANCE: Yes well kempt ACTIVITY/MOTOR BEHAVIOR: Yes appropriate eye contact SPEECH: Yes normal speech MOOD & AFFECT: Yes euthymic mood T HOUGHT PROCESS: Normal thought process present MEMORY/COGNITION: Yes memory grossly intact Skin: WOUNDS: Yes wounds noted (See wound assessments) Data 02/02/25 05:53 02/02/25 05:53 A&P Assessment and plan (1) Venous stasis ulcer of right lower extremity: (2) Venous stasis ulcer of left lower extremity: Plan Dressings were clean dry and intact upon evaluation. Dressings were removed, wounds were cleansed, and new wound dressings were applied. Wounds do not appear to be acutely infected at this time. There is increasing granulation within the wounds and all wounds are measuring smaller. There is small to moderate adherent slough noted in the wound beds, though he has a scheduled appointment at wound care tomorrow with Dr. Griffin. Therefore, I will defer debridement until tomorrow when he is in the wound care center. The edema in his legs has decreased. He attributes this to staying in the hospital bed with his legs elevated. His capillary refill is less than 3 seconds. Palpable dorsalis pedis pulses bilaterally. We had a lengthy discussion regarding the need to continue elevating his legs once discharged given the positive response the wounds have shown and just 3 days with leg elevation. Silvercel was applied to the wound beds, ABD pads and Kerlix were applied over this and secured with Jermaine bandages. Dr. Hernandez plans to discharge him today. He has a follow-up appointment with wound care scheduled for February 03 at 1115. The patient is aware of this appointment. PDMP PDMP Reviewed: Not Reviewed Attestations 2 Medical Necessity Statement*: Time Spent in Patient Care: 16 - 35 minutes Coding Level of Care Code Acute Code for g Fwd Diagnoses Venous stasis ulcer of right lower extremity I83.019; L97.919 Venous stasis ulcer of left lower extremity I83.029; L97.929 Wound Assessment Wound Assessment Wound Number 1 Lower Leg: Descriptor: Left and Anterior Primary Etiology:: Venous Ulcer Length: (cm): 2.4 cm Width: (cm): 3.5 cm Depth: (cm): 0.2 cm Epithelialization:: Small (1-33%) Tunneling:: No Undermining:: No Limited to Skin Breakdown: Yes Exudate Amount:: Medium Drainage Type: Serosanguineous Foul Odor After Cleansing:: No Slough/Fibrin?: Yes Granulation Amount: Medium (34-66%) Granulation Quality:: Red and [place] Necrotic Amount:: Small (1-33%) Necrotic Type:: Adherent Slough Wound Number 2 Lower Leg: Descriptor: Left and Lateral Primary Etiology:: Venous Ulcer Length: (cm): 5.8 cm Width: (cm): 4.7 cm Depth: (cm): 0.4 cm Epithelialization:: Small (1-33%) Tunneling:: No Undermining:: No Limited to Skin Breakdown: No Exudate Amount:: Medium Drainage Type: Serosanguineous Foul Odor After Cleansing:: No Slough/Fibrin?: Yes Granulation Amount: Large (67-100%) Granulation Quality:: Red Necrotic Amount:: Small (1-33%) Necrotic Type:: Adherent Slough Wound Number 3 Lower Leg: Descriptor: Left and Medial Primary Etiology:: Venous Ulcer Length: (cm): 1.8 cm Width: (cm): 1.1 cm Depth: (cm): 0.3 cm Epithelialization:: Small (1-33%) Tunneling:: No Undermining:: No Limited to Skin Breakdown: No Exudate Amount:: Medium Drainage Type: Serosanguineous Foul Odor After Cleansing:: No Slough/Fibrin?: Yes Granulation Amount: Medium (34-66%) Granulation Quality:: Red and [place] Necrotic Amount:: Medium (34-66%) Necrotic Type:: Adherent Slough Wound Number 4 Lower Leg: Descriptor: Right and Medial Primary Etiology:: Venous Ulcer Length: (cm): 6.8 cm Width: (cm): 4.2 cm Depth: (cm): 0.3 cm Epithelialization:: Small (1-33%) Tunneling:: No Undermining:: No Limited to Skin Breakdown: No Exudate Amount:: Medium Drainage Type: Serosanguineous Foul Odor After Cleansing:: No Slough/Fibrin?: Yes Granulation Amount: Medium (34-66%) Granulation Quality:: Red and [place] Necrotic Amount:: Medium (34-66%) Necrotic Type:: Adherent Slough Wound Orders All Wounds: Left anterior lower leg, left lateral lower leg, left medial lower leg, right medial lower leg Dressing change frequency: Daily and Other (And as needed if strikethrough drainage is present) Wound Cleansing: Saline Primary Wound Care Dressing: Silvercel Secondary Wound Care Dressing: ABD pad, Kerlix, Jermaine bandage Bathing/Showering/Hygiene: May shower with protection but do not get dressing wet. Edema Control: Elevate legs to heart level for 30 mins daily and/or when sitting, Avoid standing for long periods of time and Other Edema Control Order/Instructions: (Jermaine bandage wrapped from base of toes to just below knee. Check frequently to ensure Jermaine bandage has not fallen down.) Discharge From Services Discharge from Wound Care Rounding
--- NOTE | 2025-02-02 13:40 | P.CONIM_ITS ---
<Statement entered by Nisreen Michael MD - 02/02/25 20:36> Patient was evaluated and cared for in conjunction with an advanced practice practitioner. I personally examined the patient and reviewed the chart and all pertinent data including imaging, telemetry, and laboratory results. I discussed the patient in detail with the advanced practice practitioner. Please see their note for complete H&P testing result and agreed upon plan of care for the patient. Providers/Reason For Consult 2 Consulting Physician/Specialty*: Dr Vane Michael, cardiology Reason for Consult*: abnormal stress test Requesting Physician: Dr Hernandez Attending Physician: Elena Hernandez MD Primary Care Provider: Oliver Dempsey MD History of Present Illness History of Present Illness Andrew Ruggiero is a 59 year old male with past medical history of systolic CHF (LVEF now improved to 64%), DJ INSTRUCTOR-D implanted in 2021, CAD, atrial fibrillation anticoagulated with apixaban 5 mg twice a day, hypertension, hyperlipidemia, PAD, smoking, chronic left femoral-popliteal thrombus. He presented to the emergency room on 01/30/2025 with left-sided chest pain radiating to the left arm. Troponin series: 15-> 14-> 13. BNP 229, normal renal function. He was evaluated with Lexiscan stress test today showing small to medium fixed perfusion defect in the left circumflex territory with minimal harini-infarct ischemia. Stress LVEF 60%. He has home medications include Entresto 49/51 mg twice daily, spironolactone 12.5 mg daily, metoprolol succinate 50 mg twice a day, aspirin, Eliquis 5 mg twice a day, Jardiance 10 mg daily. He previously saw Dr. Sue in the cardiology clinic but no longer follows up. Review of Systems 2 Const: Denies: fever(s), chills, change in weight, fatigue or diaphoresis Eyes: Denies: change in vision ENMT: Denies: epistaxis Card: Reports: dyspnea on exertion; Denies: chest pain, palpitations, irregular heart rhythm, edema, syncope, pre- syncope, orthopnea or leg pain with exertion Resp: Denies: dyspnea, productive cough or wheezing GI: Denies: nausea, vomiting, hematemesis, hematochezia or melena : Denies: hematuria Musc: Denies: extremity swelling Jeff/Lymph: Denies: easy bruising or easy bleeding Medications/Allergies Home Medications ?Medication ?Instructions ?Recorded ?Confirmed ?Last Taken ?Type acetaminophen 325 mg tablet 325 mg PO QID PRN Pain 01/30/25 01/29/25 History (Tylenol) apixaban 5 mg tablet (Eliquis) 5 mg PO BID #180 tabs 0 01/07/25 01/30/25 01/29/25 Rx aspirin 81 mg tablet,delayed 81 mg PO DAILY #90 tabs 0 01/07/25 01/30/25 01/29/25 Rx release atorvastatin 10 mg tablet (Lipitor) 10 mg PO DAILY #90 tabs 01/07/25 01/30/25 01/29/25 Rx empagliflozin 10 mg tablet 10 mg PO DAILY #90 tabs 01/30/25 01/29/25 Rx (Jardiance) metoprolol succinate 100 mg 50 mg (1/2 x 100 mg) PO BI D #90 01/07/25 01/30/25 01/29/25 Rx tablet,extended release 24 hr tabs potassium chloride 20 mEq 20 meq PO BID #180 tabs 12/2301/30/25 01/29/25 Rx tablet,extended release sacubitril 49 mg-valsartan 51 mg 1 tab PO BID #90 tabs 01/07/25 01/30/25 01/29/25 Rx tablet (Entresto) spironolactone 25 mg tablet 12.5 mg (1/2 x 25 mg) PO D AILY #90 01/07/25 01/30/25 01/29/25 Rx tabs thiamine HCl (vitamin B1) 100 mg 100 mg PO DAILY #90 t abs 01/08/25 01/30/25 01/29/25 Rx tablet Allergies Allergy/AdvReac Type Severity Reaction Status Date / Time No Known Allergies Allergy Verified 01/07/25 13:05 Current Medications Generic Name Dose Route Start Last Admin Trade Name Freq PRN Reason Stop Dose Admin Apixaban 5 mg 01/30/25 18:00 02/02/25 09:11 Apixaban 5 Mg Tablet PO 5 mg BID JERRY Administration Aspirin 81 mg 01/31/25 09:00 02/02/25 09:11 Aspirin 81 Mg Ec Tablet PO 81 mg DAILY JERRY Administration Atorvastatin Calcium 10 mg 01/30/25 21:00 02/01/25 20:54 Atorvastatin 10 Mg Tablet PO 10 mg BEDTIME JERRY Administration Folic Acid 1 mg 01/30/25 11:31 02/02/25 09:11 Folic Acid 1 Mg Tablet PO 1 mg DAILY JERRY Administration Insulin Human Lispro 0 unit 01/30/25 12:00 02/02/25 12:12 Insulin Lispro 100 Unit/1 Ml SUBCUT 4 unit WM&BEDTIME JERRY Administration Protocol Metoprolol Succinate 50 mg 01/30/25 18:00 02/02/25 09:11 Metoprolol Succinate Er (24 Hr) 100 Mg Tablet PO 50 mg BID JERRY Administration Multivitamins Therapeutic 1 tab 01/30/25 11:31 02/02/25 09:11 Multivitamin Therapeutic Tablet PO 1 tab DAILY JERRY Administration Sacubitril/Valsartan 2 each 01/30/25 18:00 02/02/25 09:11 Sacubitril/Valsartan 24-26 Mg Tablet PO 2 each BID JERRY Administration Spironolactone 12.5 mg 01/31/25 09:00 02/02/25 09:11 Spironolactone 25 Mg Tablet PO 12.5 mg DAILY JERRY Administration Thiamine Mononitrate 100 mg 01/31/25 09:00 02/02/25 09:10 Thiamine 100 Mg Tablet PO 100 mg DAILY JERRY Administration PFSH Acute 2 PFSH: Medical History (Updated 02/02/25 @ 14:55 by LAURE Shine) Tobacco use disorder Heart failure with mildly reduced ejection fraction (HFmrEF) Elevated blood pressure reading with diagnosis of hypertension Alcoholism with alcohol dependence Diabetes type 2, controlled Neuropathy History of non-ST elevation myocardial infarction (NSTEMI) Peripheral vascular disease Atrial fibrillation Hypertension CHF (congestive heart failure) LVEF 64% 01/30/2025 Surgical History Hx of umbilical hernia repair 07/05/23 lap repair of umbilical hernia with mesh- Dr Obrien History of implantable cardioverter-defibrillator (ICD) placement Family History Mother CAD (coronary artery disease) Social History Smoking and tobacco/nicotine status: current every day tobacco/nicotine user cigarettes [ Other cigarette details: 1.5 pack per day x 40 years, currently down to 3-4 cig/day] Alcohol intake: current Alcohol intake frequency: 3 or more drinks per day Alcohol type: beer Substance/Drug Use: former Date of last use: marijuana in 2021 Household members: children Marital status: Single Number of children: 2 Number of grandchildren: 0 Current occupational status: disabled Special duc needs: No Agree to transfusion: Yes Vitals/I&O/Wt Last Vital Signs Temp 97.6 F 02/02/25 12:00 Pulse 60 02/02/25 12:00 Resp 18 02/02/25 12:00 BP 159/87 02/02/25 12:00 Pulse Ox 97 02/02/25 12:00 O2 Del Method Room Air 02/02/25 12:00 02/01/25 02/02/25 02/02/25 22:59 06:59 14:59 Intake Total 840 / 840 Output Total 250 / 1750 650 / 1750 550 / 550 Balance -250 / -1270 -650 / -1270 290 / 290 Weight last 48 hrs Weight 172 lb 6.424 oz Weight 172 lb 13.478 oz Physical Exam 2 Const: COMMON NORMALS: no acute distress and patient oriented x3 GENERAL APPEARANCE: cooperative and comfortable ORIENTATION/CONSCIOUSNESS: Yes awake, Yes oriented to person, Yes oriented to place and Yes oriented to time Chest: COMMONS NORMALS: normal inspection of the chest and normal palpation of entire chest wall CHEST: Yes Symmetrical chest wall rise Resp: COMMON NORMALS: normal respiratory effort, No retractions, No use of accessory muscles and clear to auscultation bilaterally EFFORT & INSPECTION: Yes symmetric chest movement AUSCULTATION: clear to auscultation bilaterally Cardio: COMMON NORMALS: regular rate, regular rhythm, S1 normal heart sound present, S2 normal heart sound present, No gallops present (Cardio), No clicks present (Cardio), No murmurs present (Cardio) and No rub (Cardio) RATE: r egular rate RHYTHM: regular rhythm HEART SOUNDS: S1 normal heart sound present and S2 normal heart sound present PERIPHERAL PULSES: radial pulses present Neuro: COMMON NORMALS: patient oriented x3 and moves all extremities S ENSORIUM/ORIENTATION: Yes oriented to person, Yes oriented to place and Yes oriented to time Data 02/02/25 05:53 02/02/25 05:53 A&P Assessment and plan (1) Chest pain: (2) Tobacco use disorder: (3) Cardiac resynchronization therapy defibrillator (DJ INSTRUCTOR-D) in place: Plan Given the chest pain is atypical, troponins are downtrending and very low, and there is minimal harini-infarct ischemia on the stress test would recommend continued medical management, initiation of isosorbide mononitrate 30 mg daily. Agree with planned discharge today. PDMP PDMP Reviewed: Not Reviewed Coding Level of Care Code Acute Code for [facility] Fwd Diagnoses Chest pain R07.9 Tobacco use disorder F17.200 Cardiac resynchronization therapy defibrillator (DJ INSTRUCTOR-D) in place Z95.810
--- NOTE | 2025-02-02 14:25 | P.DS_ITS ---
Discharge Providers Date of Admission: 01/30/25 11:31 Date of Discharge: February 02, 2025 Attending Provider at Admission: Vin Kelsey Attending Provider at Discharge: Elena Hernandez MD Primary Care Provider: Oliver Dempsey MD Diagnoses at Discharge Discharge Diagnosis (1) Chest pain: Status: Acute Reason for Visit Reason for Visit: Chest Pain Brief History: As per Dr. Kirkpatrick, 59-year-old gentleman with history of sy stolic congestive heart failure, status post ICD, coronary disease, atrial fibrillation on Eliquis, peripheral chill disease, venous insufficiency ulcers on bilateral lower extremities, following with wound care clinic, DM2, diabetic neuropathy, HTN, HLD, smoking, other medical problems presents after waking up around 3 AM this morning with chest pain and left side as well as left arm, he denies having issues with that pain previously. He denies being short of breath, or having more cough than usual, although does have a chronic productive smoker's cough. She reports he is currently homeless after being kicked out by his son and kicked out by the homeless prison. Hospital Course Hospital Course Patient presented to the hospital with chest pain radiating down to the left arm. He underwent stress testing after which cardiology was consulted. No plans for further intervention. Imdur recommended to be added 30 mg a day. He has remained chest pain-free throughout hospitalization. He also had chronic venous ulcers bilateral lower extremities for which he was evaluated by wound care clinic. He will be discharged home at this time in stable condition. He is chest pain free denies shortness of breath denies nausea. He will be going to a house beside his son's house. He states he has a ride today as well. Wound care reevaluated patient's legs. He will follow-up with them as an outpatient. Physical Exam Const: COMMON NORMALS: patient oriented x3 and alert GENERAL APPEARANCE: cooperative ORIENTATION/CONSCIOUSNESS: Yes awake HENMT: COMMON NORMALS: oropharynx normal Neck/C-Spine: COMMON NORMALS: no JVD Resp: COMMON NORMALS: normal respiratory effort and clear to auscultation bilaterally AUSCULTATION: clear to auscultation bilaterally Cardio: COMMON NORMALS: no JVD, regular rhythm, S1 normal heart sound present, S2 normal heart sound present and No murmurs present (Cardio) RHYTHM: regular rhythm HEART SOUNDS: S1 normal heart sound present and S2 normal heart sound present GI: COMMON NORMALS: Normal to inspection, nondistended, normoactive bowel sounds present, Soft to palpation and non-tender PALPATION: Yes Soft to palpation Extremity: COMMON NORMALS: no joint enlargement and no pedal edema Neuro: COMMON NORMALS: patient oriented x3 and moves all extremities SENSORIUM/ORIENTATION: Yes alert Skin: COMMON NORMALS: no rashes or lesions noted NARRATIVE SKIN EXAM: both legs under compression wraps GENERAL SKIN EXAM: no rashes or lesions noted Discharge Data Studies Completed and Pending Completed Studies During Hospitalization Category Date Time Status CTA chest [CT angio chest PE protcl [id number]] Routine Cat Scan 01/30/25 09:42 Completed XR chest 1V portable [id number] Stat Exams 01/30/25 05:54 Completed NM angelita perf SPECT r/s* [id number] Routine Nuc Med 02/02/25 12:18 Completed CV. echo limited [id number] Routine Ultrasound 01/30/25 13:31 Completed Pending at discharge Category Date Time Status Sestamibi Stress Test Request Routine Exams 02/01/25 12:18 Ordered Basic Metabolic Panel AM LABS Lab 02/03/25 04:00 Ordered Blood Culture Stat Lab 01/30/25 06:08 Results Complete Blood Count w/Auto AM LABS Lab 02/03/25 04:00 Ordered Radiology Impressions Chest X-Ray 01/30/25 05:54 IMPRESSION: 1. No definite CHF or pneumonia. 2. Other findings discussed above. Chest CTA 01/30/25 09:42 IMPRESSION: No evidence of pulmonary embolus Laboratory Results WBC 5.55 10^3/uL (3.29-11.43) 02/02/25 05:53 RBC 5.63 10^6/uL (3.85-5.65) 02/02/25 05:53 Hgb 14.60 g/dL (11.27-16.99) 02/02/25 05:53 Hct 47.1 % (37-53) 02/02/25 05:53 MCV 83.7 fl (82-101) 02/02/25 05:53 MCH 25.9 pg (27-33) L 02/02/25 05:53 MCHC 31.0 g/dL (30-55) 02/02/25 05:53 RDW 16.1 % (12.1-15.1) H 02/02/25 05:53 Plt Count 153 10^3/cmm (157-399) L 02/02/25 05:53 MPV 10.3 fL (7.4-10.4) 02/02/25 05:53 Neut % (Auto) 49.2 % 02/02/25 05:53 Lymph % (Auto) 37.5 % 02/02/25 05:53 Nicol[place] % (Auto) 8.1 % 02/02/25 05:53 Eos % (Auto) 4.5 % 02/02/25 05:53 Baso % (Auto) 0.5 % 02/02/25 05:53 Neut # (Auto) 2.73 10^3/uL (1.8-7.7) 02/02/25 05:53 Lymph # (Auto) 2.1 10^3/uL (0.8-4.8) 02/02/25 05:53 Nicol[place] # (Auto) 0.5 10^3/uL (0.2-0.9) 02/02/25 05:53 Eos # (Auto) 0.3 10^3/uL (0.0-0.8) 02/02/25 05:53 Baso # (Auto) 0.0 10^3/uL (0.0-0.1) 02/02/25 05:53 Nucleated RBC % (auto) 0 % 02/02/25 05:53 Nucleated RBCs # 0.0 /100WBC 02/02/25 05:53 PT 13.20 SECONDS (12.1-14.9) 01/30/25 05:55 INR 0.93 (0.8-1.2) 01/30/25 05:55 APTT 26.8 SECONDS (23.9-36.7) 01/30/25 05:55 D-Dimer 0.93 ug/mLFEU (0-0.59) H 01/30/25 05:55 Sodium 139 mmol/L (136-145) 02/02/25 05:53 Potassium 4.2 mmol/L (3.5-5.1) 02/02/25 05:53 Chloride 106 mmol/L (98-107) 02/02/25 05:53 Carbon Dioxide 20 mmol/L (22-29) L 02/02/25 05:53 Anion Gap 17.2 (5-19) 02/02/25 05:53 BUN 11 mg/dL (6-20) 02/02/25 05:53 Creatinine 0.7 mg/dL (0.7-1.2) 02/02/25 05:53 GFR Calculation 115.8 mL/min (90-130) 02/02/25 05:53 Glucose 111 mg/dL (65-115) 02/02/25 05:53 POC Glucose 220 mg/dL (70-110) H 02/02/25 11:13 Calculated Osmolality 288 mOsm/kg (285-295) 02/02/25 05:53 Lactic Acid 1.0 mmol/L (0.5-2.2) 01/30/25 05:55 Calcium 8.8 mg/dL (8.5-10.5) 02/02/25 05:53 Total Bilirubin 0.5 mg/dL (0.15-1.2) 02/02/25 05:53 AST 34 U/L (0-40) 02/02/25 05:53 ALT 33 U/L (0-41) 02/02/25 05:53 Alkaline Phosphatase 105 U/L (40-130) 02/02/25 05:53 Troponin T Baseline 15 ng/L (0-15) 01/30/25 05:55 Troponin T 120 Minute 14.34 ng/L (0-15) 01/30/25 07:45 Delta Troponin T -0.66 ABS# (0-10) L 01/30/25 07:45 Troponin T Hi Sens 6Hr 13.16 ng/L (0-15) 01/30/25 18:01 Troponin T Hi Sens 6Hr Delta -1.84 ng/L (0-12) L 01/30/25 18:01 NT-Pro-B Natriuret Pep 229 pg/mL (0-125) H 01/30/25 05:55 Total Protein 7.4 g/dL (6.6-8.7) 02/02/25 05:53 Albumin 3.7 g/dL (3.5-5.2) 02/02/25 05:53 Globulin 3.7 g/dL (1.3-4.6) 02/02/25 05:53 Influenza A (PCR) Negative (Negative) 01/30/25 06:05 Influenza Type B (PCR) Negative (Negative) 01/30/25 06:05 RSV (PCR) Negative (Negative) 01/30/25 06:05 SARS-CoV-2 (PCR) Negative (Negative) 01/30/25 06:05 Vitals Last Vital Signs Temp 97.6 F 02/02/25 12:00 Pulse 60 02/02/25 12:00 Resp 18 02/02/25 12:00 BP 159/87 02/02/25 12:00 Pulse Ox 97 02/02/25 12:00 O2 Del Method Room Air 02/02/25 12:00 Discharge Plan Discharge Patient Disposition: Home Condition: Stable Prescriptions: New multivitamin with folic acid [Thera] 400 mcg Tablet 1 tab PO DAILY Qty: 30 0RF isosorbide mononitrate 30 mg tablet extended release 24 hr 30 mg PO DAILY Qty: 30 0RF folic acid 1 mg Tablet 1 mg PO DAILY Qty: 30 0RF Continued acetaminophen [Tylenol] 325 mg tablet 325 mg PO QID PRN (Reason: Pain) Eliquis 5 mg tablet 5 mg PO BID Qty: 180 1RF metoprolol succinate 100 mg tablet extended release 24 hr 50 mg PO BID Qty: 90 1RF aspirin 81 mg tablet,delayed release (DR/EC) 81 mg PO DAILY Qty: 90 1RF Lipitor 10 mg tablet 10 mg PO DAILY Qty: 90 1RF Jardiance 10 mg tablet 10 mg PO DAILY Qty: 90 1RF potassium chloride 20 mEq tablet extended release 20 meq PO BID Qty: 180 1RF Entresto 49-51 mg tablet 1 tab PO BID Qty: 90 1RF spironolactone 25 mg tablet 12.5 mg PO DAILY Qty: 90 1RF thiamine HCl (vitamin B1) 100 mg tablet 100 mg PO DAILY Qty: 90 1RF Discharge Orders: Discharge Order (Routine); Ordered 02/02/25 Ordered By: Elena Hernandez Referrals: Anthony Caldwell FNP [Nurse Practitioner, Wound Care] - 1-3 days Juliane Lang FNP [Nurse Practitioner, Cardiology] - 7-10 days Oliver Dempsey MD [Primary Care Provider, Family Practice] - 4-7 days Discharge Diet: Cardiac and Diabetic Discharge Activity: Resume usual activity Patient Instructions: Opioid Safety Discharge Attestations Time Spent in Discharge Care*: greater than 30 min Status at Discharge: Cognitive status at discharge: cognitively intact , Behavioral status at discharge: cooperative , Quality Metrics Clinical Quality Measures [ No reported AMI, CVA or VTE this stay] Coding Level of Care Code 33744 Total time (in minutes) for Discharge: 45 Diagnoses Chest pain R07.9
== END 2025-02-02 16:01 | disposition home or self-care (01) | DRG 313 ==
LOC: ER 08:36 → CSU 01-31 07:47
PROVIDERS: Admitting Provider Internal Medicine; Emergency Provider Emergency Medicine; PCP Family Medicine; Visit Provider Internal Medicine
DX: R07.89 Other chest pain (principal); I50.22 Chronic systolic (congestive) heart failure; L97.919 Non-pressure chronic ulcer of unspecified part of right lower leg with unspecified severity; L97.929 Non-pressure chronic ulcer of unspecified part of left lower leg with unspecified severity; I11.0 Hypertensive heart disease with heart failure; Z95.810 Presence of automatic (implantable) cardiac defibrillator; I25.10 Atherosclerotic heart disease of native coronary artery without angina pectoris; I48.91 Unspecified atrial fibrillation; Z79.01 Long term (current) use of anticoagulants; E11.622 Type 2 diabetes mellitus with other skin ulcer; E11.40 Type 2 diabetes mellitus with diabetic neuropathy, unspecified; E78.5 Hyperlipidemia, unspecified; F17.210 Nicotine dependence, cigarettes, uncomplicated; Z79.82 Long term (current) use of aspirin; Z79.84 Long term (current) use of oral hypoglycemic drugs; F10.20 Alcohol dependence, uncomplicated; I25.2 Old myocardial infarction
CPT/HCPCS: 36415; 36416; 71045; 71275; 78452; 80053; 82962; 83605; 83880; 84484; 85025; 85378; 85610; 85730; 87040; 87637; 93005; 93017; 93308; 96372; 96374; 96375; 99285; A9500; J1815; J2060; J2270; J2405; J2785; J3411; J9999

== ENCOUNTER → 2025-02-03 10:43 | Outpatient (BNVA) | payer MEDICAID, SELFPAY | PROVIDERS: PCP Family Medicine; Visit Provider Thoracic Surgery (Cardiothoracic Vascular Surgery) | DX: I96 Gangrene, not elsewhere classified (principal); I87.2 Venous insufficiency (chronic) (peripheral); L97.812 Non-pressure chronic ulcer of other part of right lower leg with fat layer exposed; L97.821 Non-pressure chronic ulcer of other part of left lower leg limited to breakdown of skin | CPT/HCPCS: 11042; 97597; 97598 ==

== ENCOUNTER → 2025-02-06 10:32 | Outpatient (BNVA) | payer MEDICAID, SELFPAY | PROVIDERS: PCP Family Medicine; Visit Provider Thoracic Surgery (Cardiothoracic Vascular Surgery) | DX: I87.313 Chronic venous hypertension (idiopathic) with ulcer of bilateral lower extremity (principal); L97.821 Non-pressure chronic ulcer of other part of left lower leg limited to breakdown of skin; L97.811 Non-pressure chronic ulcer of other part of right lower leg limited to breakdown of skin | CPT/HCPCS: 29581; A6210; A6253 ==

== ENCOUNTER 2025-02-07 19:16 | Emergency (ER) | payer MEDICAID, SELFPAY ==
[2025-02-07 19:46] VITALS: BP 143/83; PULSE 97; RESP 18; TEMP 36.5; O2SAT 97; BMI 27.6
--- NOTE | 2025-02-07 21:23 | XRR_ITS ---
PROCEDURE INFORMATION: Exam: XR Chest Exam date and time: 02/07/2025 9:49 PM Age: 59 years old Clinical indication: Chest wall pain; Prior surgery; Surgery date: 6+ months; Surgery type: Defib; Lt lower lat rib/shoulder pain post fall from sxs TECHNIQUE: Imaging protocol: Radiologic exam of the chest. Views: 1 view. COMPARISON: CT angio chest PE protcl [id number] 01/30/2025 10:14 AM FINDINGS: Tubes, catheters and devices: Multi lead electronic cardiac device projects over the left chest. Lungs: No large focal consolidation. Pleural spaces: No large pleural effusion. No distinct pneumothorax. Heart/Mediastinum: Cardiomediastinal silhouette is midline and normal in size. Bones/joints: Acute fracture deformity of the left clavicle midshaft. XR/XR chest 1V portable [id number] IMPRESSION: 1. Acute fracture deformity of the left clavicle midshaft. 2. No acute cardiopulmonary findings.
--- NOTE | 2025-02-07 21:24 | XRR_ITS ---
PROCEDURE INFORMATION: Exam: XR Left Shoulder Exam date and time: 02/07/2025 9:49 PM Age: 59 years old Clinical indication: Pain; Shoulder; Left; Prior surgery; Surgery date: 6+ months; Surgery type: Defib; Additional info: Lt lower lat rib/shoulder pain post fall from sxs TECHNIQUE: Imaging protocol: Radiologic exam of the left shoulder. Views: 2 or more views. COMPARISON: CT angio chest PE protcl [id number] 01/30/2025 10:14 AM FINDINGS: Bones/joints: Acute fracture of the left clavicle midshaft. Soft tissues: No large focal soft tissue abnormalities. XR/XR shoulder LT min 2V* [id number] IMPRESSION: Acute fracture of the left clavicle midshaft.
[2025-02-07 21:46] VITALS: PULSE 97; O2SAT 95
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
[2025-02-07] MEDS: iohexol 350 mg/mL 500 mL Btl (per mL) IV (22:53)
[2025-02-07 23:00] VITALS: PULSE 91; O2SAT 95
[2025-02-07] MEDS: ondansetron 2 mg/ML SDV 2 mL 4 MG IVP (23:14)
[2025-02-07 23:15] VITALS: RESP 18; O2SAT 96
[2025-02-07] MEDS: morphine 4 mg/mL SDV 1 mL IVP (23:15)
[2025-02-08 00:10] LABS: INR 0.98 (0.8-1.2); Partial Thromboplastin Time 23.5 SECONDS (23.9-36.7)
[2025-02-08 00:14] LABS: Alanine Aminotransferase 37 U/L (0-41); Albumin Level 3.7 g/dL (3.5-5.2); Alkaline Phosphatase 99 U/L (40-130); Aspartate Amino Transferase 36 U/L (0-40); Blood Urea Nitrogen 9 mg/dL (6-20); Calcium 8.9 mg/dL (8.5-10.5); Carbon Dioxide 20 mmol/L (22-29); Chloride 102 mmol/L (98-107); Creatinine Clr Calc Pharmacy 116.4803; Globulin 3.7 g/dL (1.3-4.6); Glomerular Filtration Rate 115.8 mL/min (90-130); Glucose 134 mg/dL (65-115); Osmolality Calculated 281 mOsm/kg (285-295); Sodium 135 mmol/L (136-145); Total Bilirubin 0.6 mg/dL (0.15-1.2); Total Protein 7.4 g/dL (6.6-8.7)
[2025-02-08 00:15] LABS: Anion Gap 16.9 (5-19); Potassium 3.9 mmol/L (3.5-5.1)
[2025-02-08 00:16] LABS: Basophils % 0.3 %; Eosinophils # 0.1 10^3/uL (0.0-0.8); Hematocrit 41.7 % (37-53); Lymphocytes # 1.6 10^3/uL (0.8-4.8); Lymphocytes % 26.6 %; Mean Corpuscular HGB Conc 31.2 g/dL (30-55); Mean Corpuscular Hemoglobin 26.3 pg (27-33); Mean Corpuscular Volume 84.2 fl (82-101); Mean Platelet Volume 11.8 fL (7.4-10.4); Monocytes # 0.5 10^3/uL (0.2-0.9); Monocytes % 8.4 %; Neutrophils # 3.77 10^3/uL (1.8-7.7); Neutrophils % 63.4 %; Nucleated Red Blood Cells % 0 %; Platelet Count 133 10^3/cmm (157-399); Red Blood Count 4.95 10^6/uL (3.85-5.65); Red Cell Distribution Width 16.2 % (12.1-15.1); White Blood Count 5.95 10^3/uL (3.29-11.43)
[2025-02-08 00:25] VITALS: BP 115/85; PULSE 88; RESP 16; O2SAT 94
== END 2025-02-08 00:39 | disposition home or self-care (01) ==
PROVIDERS: Emergency Medicine; Emergency Provider Emergency Medicine; PCP Family Medicine
DX: S42.002A Fracture of unspecified part of left clavicle, initial encounter for closed fracture (principal); Z79.01 Long term (current) use of anticoagulants; E11.40 Type 2 diabetes mellitus with diabetic neuropathy, unspecified; I11.0 Hypertensive heart disease with heart failure; I50.20 Unspecified systolic (congestive) heart failure; F17.210 Nicotine dependence, cigarettes, uncomplicated; V86.65XA Passenger of 3- or 4- wheeled all-terrain vehicle (ATV) injured in nontraffic accident, initial encounter
CPT/HCPCS: 36415; 70450; 71045; 71260; 72125; 73030; 74177; 80053; 85025; 85610; 85730; 86850; 86900; 96374; 96375; 99285; J2270; J2405

== ENCOUNTER → 2025-02-10 10:57 | Outpatient (BNVA) | payer MEDICAID, SELFPAY | PROVIDERS: PCP Family Medicine; Visit Provider Thoracic Surgery (Cardiothoracic Vascular Surgery) | DX: I96 Gangrene, not elsewhere classified (principal); I87.2 Venous insufficiency (chronic) (peripheral); L97.821 Non-pressure chronic ulcer of other part of left lower leg limited to breakdown of skin; L97.811 Non-pressure chronic ulcer of other part of right lower leg limited to breakdown of skin | CPT/HCPCS: 97597; 97598; A6210; A6253 ==

== ENCOUNTER → 2025-02-12 10:35 | Outpatient (BNVA) | payer MEDICAID, SELFPAY | PROVIDERS: PCP Family Medicine; Visit Provider Orthopaedic Surgery | DX: Z01.818 Encounter for other preprocedural examination (principal); S42.022A Displaced fracture of shaft of left clavicle, initial encounter for closed fracture; X58.XXXA Exposure to other specified factors, initial encounter | CPT/HCPCS: 36415; 73000; 80053; 81003; 83036; 85025; 99204 ==

== ENCOUNTER → 2025-02-13 09:43 | Outpatient (BNVA) | payer MEDICAID, SELFPAY | PROVIDERS: PCP Family Medicine; Visit Provider Thoracic Surgery (Cardiothoracic Vascular Surgery) | DX: I87.313 Chronic venous hypertension (idiopathic) with ulcer of bilateral lower extremity (principal); L97.821 Non-pressure chronic ulcer of other part of left lower leg limited to breakdown of skin; L97.811 Non-pressure chronic ulcer of other part of right lower leg limited to breakdown of skin | CPT/HCPCS: 29581; A6210; A6253 ==

== ENCOUNTER → 2025-02-17 08:02 | Outpatient (BNVA) | payer MEDICAID, SELFPAY | PROVIDERS: PCP Family Medicine; Visit Provider Thoracic Surgery (Cardiothoracic Vascular Surgery) | DX: I96 Gangrene, not elsewhere classified (principal); I87.2 Venous insufficiency (chronic) (peripheral); L97.821 Non-pressure chronic ulcer of other part of left lower leg limited to breakdown of skin; L97.811 Non-pressure chronic ulcer of other part of right lower leg limited to breakdown of skin | CPT/HCPCS: 97597; 97598; A6210; A6252 ==

== ENCOUNTER → 2025-02-19 08:07 | Outpatient (BNVA) | payer MEDICAID, SELFPAY | PROVIDERS: PCP Family Medicine; Visit Provider Thoracic Surgery (Cardiothoracic Vascular Surgery) | DX: I87.313 Chronic venous hypertension (idiopathic) with ulcer of bilateral lower extremity (principal) | CPT/HCPCS: 29581; A6210; A6252 ==

== ENCOUNTER 2025-02-20 09:31 | Day surgery (SDC) | payer MEDICAID, SELFPAY ==
[2025-02-20] VITALS (13 sets, daily range): BP systolic 125–161; BP diastolic 74–97; PULSE 61–92; RESP 14–22; TEMP 36.5–36.6; O2SAT 91–99; BMI 27.3
[2025-02-20 10:24] LABS: Glucose Point of Care 128 mg/dL (70-110)
[2025-02-20] MEDS: sodium chloride 0.9% 1,000 ML 30 ML IV (10:27)
--- NOTE | 2025-02-20 10:56 | W.PM.OPSUD ---
Surgery/Procedure H&P Update DATE OF PROCEDURE: February 20, 2025 DATE H&P PERFORMED: 02/12/25 H&P UPDATE INFORMATION: I have reviewed H&P completed within last 30 days, I have examined patient prior to procedure and No changes to prior documentation PLANNED PROCEDURE: Operation Date: 02/20/25 11:25 Proposed Procedures p ORIF Clavicle(Left) - Devin Alexandra DO
--- NOTE | 2025-02-20 11:06 | ANES.PREANE2 ---
Pre-Anesthetic Assessment Height/Weight: Height 5 ft 7 in Weight 175 lb Temp Pulse Resp BP Pulse Ox O2 Del Method 97.7 F 63 16 149/82 99 Room Air 02/20/25 10:12 02/20/25 10:12 02/20/25 10:12 02/20/25 10:12 02/20/25 10:12 02/20/25 10:12 Preop Diagnosis: Left clavicle fracture Operation Date: 02/20/25 11:25 Proposed Procedures p ORIF Clavicle(Left) - Devin Alexandra DO Last intake: Intake Last Liquid Date 02/20/25 Last Liquid Time 06:00 Last Solid Date 02/19/25 Last Solid Time 18:30 Social Alcohol and Tobacco Drinks 3 tall boys a day Exam alert, oriented x 3 and regular rate & rhythm Airway Submandibular: within normal limits Cervical ROM: within normal limits Mallampati: Class III Comments: Comments: Very poor dentition, few teeth left. Denies any loose Anesthetic Plan ASA status: 3 Anesthesia: General Other: No prior issues with anesthesia NPO since yesterday evening Hx of HFrEF improved on recent echo, EF 64% Ventricular pacemaker in place Recent stress test was negative Current smoker Type 2 diabetes. Recent BS 128 Labs reviewed from 02/12/2025 and acceptable for procedure. NA 133 at that time Plan for GETA with preop nerve block Medications/Allergies Home Medications ?Medication ?Instructions ?Recorded ?Confirmed ?Last Taken ?Type acetaminophen 325 mg tablet 325 mg PO QID PRN Pain 01/07/25 02/19/25 01/29/25 History (Tylenol) apixaban 5 mg tablet (Eliquis) 5 mg PO BID #180 tabs 01/07/25 02/19/25 02/16/25 Rx aspirin 81 mg tablet,delayed 81 mg PO DAILY #90 tabs 01/07/25 02/19/25 01/29/25 Rx release atorvastatin 10 mg tablet (Lipitor) 10 mg PO DAILY #90 tabs 01/07/25 02/19/25 02/17/25 Rx empagliflozin 10 mg tablet 10 mg PO DAILY #90 tabs 01/07/25 02/19/25 01/29/25 Rx (Jardiance) metoprolol succinate 100 mg 50 mg (1/2 x 100 mg) PO BID #90 01/07/25 02/19/25 02/20/25 Rx tablet,extended release 24 hr tabs potassium chloride 20 mEq 20 meq PO BID #180 tabs 01/07/25 02/19/25 02/19/25 Rx tablet,extended release sacubitril 49 mg-valsartan 51 mg 1 tab PO BID #90 tabs 01/07/25 02/19/25 02/17/25 Rx tablet (Entresto) spironolactone 25 mg tablet 12.5 mg (1/2 x 25 mg) PO DAILY #90 01/07/25 02/19/25 01/29/25 Rx tabs thiamine HCl (vitamin B1) 100 mg 100 mg PO DAILY #90 tabs 01/08/25 02/19/25 01/29/25 Rx tablet folic acid 1 mg tablet 1 mg PO DAILY #30 tabs 02/01/25 02/19/25 02/20/25 Rx multivitamin with folic acid 400 1 tab PO DAILY #30 tabs 02/01/25 02/19/25 Unknown Rx mcg tablet (Thera) isosorbide mononitrate 30 mg 30 mg PO DAILY #30 tabs 02/02/25 02/19/25 02/17/25 Rx tablet,extended release 24 hr Allergies Allergy/AdvReac Type Severity Reaction Status Date / Time No Known Allergies Allergy Verified 02/20/25 09:59 Current Medications Generic Name Dose Route Start Last Admin Trade Name Freq PRN Reason Stop Dose Admin Sodium Chloride 1,000 mls @ 30 mls/hr 02/20/25 10:00 02/20/25 10:27 Sodium Chloride 0.9% IV 02/21/25 09:59 30 mls/hr .Q24H JERRY Administration PFS Anesthesia Medical History Tobacco use disorder Heart failure with mildly reduced ejection fraction (HFmrEF) Elevated blood pressure reading with diagnosis of hypertension Alcoholism with alcohol dependence Diabetes type 2, controlled Neuropathy History of non-ST elevation myocardial infarction (NSTEMI) Peripheral vascular disease Atrial fibrillation Hypertension CHF (congestive heart failure) LVEF 64% 01/30/2025 Surgical History Hx of umbilical hernia repair 07/05/23 lap repair of umbilical hernia with mesh- Dr Obrien History of implantable cardioverter-defibrillator (ICD) placement Family History Mother CAD (coronary artery disease) Social History Smoking and tobacco/nicotine status: current every day tobacco/nicotine user cigarettes [ Other cigarette details: 1.5 pack per day x 40 years, currently down to 3-4 cig/day] Alcohol intake: current Alcohol intake frequency: 3 or more drinks per day Alcohol type: beer Substance/Drug Use: former Date of last use: marijuana in 2021 Household members: children Marital status: Single Number of children: 2 Number of grandchildren: 0 Current occupational status: disabled Special duc needs: No Agree to transfusion: Yes Data Anesthesia Cardiac Studies: Echocardiogram 11/22/24 Echocardiogram Limited Views 01/30/25 Sestamibi Stress Test (Cardiology) 02/01/25
--- NOTE | 2025-02-20 11:38 | ANES.PROC ---
Anesthesia Procedures Procedure/Date: 02/20/25 Nerve Block ^: Nerve Block 1: Main Anesthesia: other (100 mcg of fentanyl) Time Out Performed: Yes Consent: requested by attending/covering physician and from patient Nerve block location: interscalene Anesthesia monitors applied: pulse oximetry, EKG, BP cuff and oxygen Nerve block position: supine Anesthetic Used: ropivicaine 0.5% Amount of anesthesia used (mL): 30 Ultrasound used to: recognize landmarks Nerve Stimulator Used?: Yes Interscalene/Femoral BLK: other needle (pjunk 4inch) Injection: neg aspiration of heme Patient Tolerated Procedure: well Complications: none Additional Comments: dexamethasone 4mg added to block
--- NOTE | 2025-02-20 11:53 | SUR.PREOP ---
left interscalenic block performed. patient tolerated well. 30mlm 0.5% ropivicaine used
[2025-02-20] MEDS: ceFAZolin 2,000 mg SDV 2000 MG IVP (12:24)
--- NOTE | 2025-02-20 14:20 | XR_ITS ---
WS: [id number] Left clavicle, C-arm fluoroscopy views, 02/20/2025 Clinical Data: OR PICS Comparison: Left clavicle, 02/12/2025 Findings: Dr. Alexandra reduced the midshaft fracture of the left clavicle with a plate and screws. XR/[place] [id number] Impression: Internal fixation of mid shaft fracture of the left clavicle.
[2025-02-20] MEDS: fentaNYL 50 mcg/mL INJ 2mL IVP ×2 (14:46→14:58)
--- NOTE | 2025-02-20 14:52 | P.OP_ITS ---
Operative Report Date of procedure: February 20, 2025 Pre-op diagnosis: Left clavicle fracture Post-op diagnosis: same Procedure done: Open reduction internal fixation of left clavicle fracture Surgeon: Devin Alexandra DO Estimated blood loss (mL): 25 Procedure: Open reduction internal fixation of left clavicle fracture Patient brought the op suite after undergoing anesthesia was placed in the supine position. Eyes appear well-padded patient's prepped draped also fashion. Skin incisions made of the clavicle. Clavicle was exposed. There are 3 fragments main fragments. The butterfly fragment was reduced and lag to the other 2 fragments. And then a superior plate from [email or web address] was placed 5 screws were placed distal and 4 screws were placed proximal. AP and lateral fluoroscopy ensured that fracture was in good condition. At this point patient was in the healthiest person so I did put DBX and then to help it heal. Wounds irrigated before this. Wounds were closed in a layered fashion with 0 Vicryl 2- 0 Vicryl and Monocryl suture. Sterile dressings were applied patient transfe rred to the PACU in stable condition.
--- NOTE | 2025-02-20 15:56 | ANE.PACU2 ---
Inpatient post-anesthesia follow up: Airway intact: Yes Vital signs: Temperature 97.9 F Pulse Rate 66 Respiratory Rate 16 Blood Pressure 158/97 Pulse Oximetry 98 Oxygen Delivery Me thod Room Air Oxygen Flow Rate 2 Fraction of Inspir ed Oxygen Hydration adequate: Yes Nausea and vomiting: No Pain level: 1 Mental status: Baseline
== END 2025-02-20 16:05 | disposition home or self-care (01) ==
PROVIDERS: PCP Family Medicine; Visit Provider Orthopaedic Surgery
PROC: (CPT 23515; principal; 2025-02-20 11:20)
DX: S42.002A Fracture of unspecified part of left clavicle, initial encounter for closed fracture (principal); W17.89XA Other fall from one level to another, initial encounter; I50.20 Unspecified systolic (congestive) heart failure; I11.0 Hypertensive heart disease with heart failure; Z95.0 Presence of cardiac pacemaker; F17.210 Nicotine dependence, cigarettes, uncomplicated; I25.2 Old myocardial infarction; E11.40 Type 2 diabetes mellitus with diabetic neuropathy, unspecified
CPT/HCPCS: 23515; 36416; 72100; 73000; 76000; 82962; C1713; C1734; J0131; J0690; J1100; J1171; J2250; J2405; J2704; J3010; J3490; J7030; J9999; P9045

== ENCOUNTER → 2025-02-23 08:23 | Outpatient (BNVA) | payer MEDICAID, SELFPAY | PROVIDERS: PCP Family Medicine; Visit Provider Thoracic Surgery (Cardiothoracic Vascular Surgery) | DX: I96 Gangrene, not elsewhere classified (principal); I87.2 Venous insufficiency (chronic) (peripheral); L97.821 Non-pressure chronic ulcer of other part of left lower leg limited to breakdown of skin; L97.811 Non-pressure chronic ulcer of other part of right lower leg limited to breakdown of skin | CPT/HCPCS: 97597; 97598 ==

== ENCOUNTER 2025-02-25 05:12 | Emergency (ER) | payer MEDICAID, SELFPAY ==
[2025-02-25] VITALS (8 sets, daily range): BP systolic 130–173; BP diastolic 73–95; PULSE 65–79; RESP 12–18; TEMP 36.5; O2SAT 96–99; BMI 27.3
--- NOTE | 2025-02-25 05:17 | XRR_ITS ---
PROCEDURE INFORMATION: Exam: XR Chest Exam date and time: 02/25/2025 5:19 AM Age: 59 years old Clinical indication: Pain; Chest pressure; Prior surgery; Surgery date: 3-7 days post-operative; Surgery type: Clavicle repair; Additional info: Chest pain TECHNIQUE: Imaging protocol: Radiologic exam of the chest. Views: 1 view. COMPARISON: CT chest abdpel w/*[id number] 02/07/2025 10:49 PM FINDINGS: Tubes, catheters and devices: Left chest ICD present. Lungs: Unremarkable. No consolidation. Pleural spaces: Unremarkable. No pleural effusion. No pneumothorax. Heart/Mediastinum: Cardiomegaly. Bones/joints: Left clavicle surgical fixation. Unremarkable osseous alignment. XR/XR chest 1V portable [id number] IMPRESSION: No acute chest pathology.
--- NOTE | 2025-02-25 05:19 | ECG_ITS ---
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
[2025-02-25 05:23] LABS: Basophils % 0.4 %; Eosinophils # 0.2 10^3/uL (0.0-0.8); Eosinophils % 4.4 %; Hematocrit 40.7 % (37-53); Lymphocytes # 1.5 10^3/uL (0.8-4.8); Lymphocytes % 29.1 %; Mean Corpuscular HGB Conc 31.7 g/dL (30-55); Mean Corpuscular Hemoglobin 26.5 pg (27-33); Mean Corpuscular Volume 83.6 fl (82-101); Mean Platelet Volume 10.3 fL (7.4-10.4); Monocytes # 0.5 10^3/uL (0.2-0.9); Monocytes % 8.6 %; Neutrophils # 3.01 10^3/uL (1.8-7.7); Neutrophils % 57.3 %; Nucleated Red Blood Cells % 0 %; Platelet Count 177 10^3/cmm (157-399); Red Blood Count 4.87 10^6/uL (3.85-5.65); White Blood Count 5.25 10^3/uL (3.29-11.43)
--- NOTE | 2025-02-25 05:32 | ED_ITS ---
HPI - Chest Pain 2 General: Chief Complaint: Chest Pain Stated Complaint: cp, dfib fired Time Seen by Provider: 02/25/25 05:26 History of Present Illness: 59-year-old male presents to the emergen cy room with complaint of chest pain and having had his defibrillator fire. Patient recently underwent an open reduction and internal fixation of a left clavicle fracture with plate and screws. This morning he got up to go to the restroom when he went back to bed he was in the process of laying down felt a sharp pain in his chest thought his defibrillator had fired. He has not had any recurrence since then he has not had any shortness of breath. He still states he has a little bit of discomfort in his chest. He has not had any drainage from the wound. The ORIF was done 5 days ago. Associated symptoms: Deny abdominal pain, dyspnea or fever(s) Related Data Home Medications ?Medication ?Instructions ?Recorded ?Confirmed acetaminophen 325 mg tablet 650 mg PO QID PRN Pain 02/25/25 (Tylenol) Previous Rx's ?Medication ?Instructions ?Recorded apixaban 5 mg tablet (Eliquis) 5 mg PO BID #180 tabs 0 01/07/25 Held on 02/20/25. Instructions: Resume on 02/22/25. aspirin 81 mg tablet,delayed 81 mg PO DAILY #90 tabs 0 01/07/25 release Held on 02/20/25. Instructions: Resume on 02/22/25. atorvastatin 10 mg tablet (Lipitor) 10 mg PO DAILY #90 tabs 01/07/25 empagliflozin 10 mg tablet 10 mg PO DAILY #90 tabs (Jardiance) metoprolol succinate 100 mg 50 mg (1/2 x 100 mg) PO BI D #90 01/07/25 tablet,extended release 24 hr tabs potassium chloride 20 mEq 20 meq PO BID #180 tabs 12/23 03/18 tablet,extended release sacubitril 49 mg-valsartan 51 mg 1 tab PO BID #90 tabs 01/07/25 tablet (Entresto) spironolactone 25 mg tablet 12.5 mg (1/2 x 25 mg) PO D AILY #90 01/07/25 tabs thiamine HCl (vitamin B1) 100 mg 100 mg PO DAILY #90 t abs 01/08/25 tablet folic acid 1 mg tablet 1 mg PO DAILY #30 tabs 02/01 multivitamin with folic acid 400 1 tab PO DAILY #30 ta bs 02/01/25 mcg tablet (Thera) isosorbide mononitrate 30 mg 30 mg PO DAILY #30 tabs 0 02/02/25 tablet,extended release 24 hr hydrocodone 5 mg-acetaminophen 325 1 - 2 tab PO .Q4-6H #40 tabs 02/20/25 mg tablet Allergies Allergy/AdvReac Type Severity Reaction Status Date / Time No Known Allergies Allergy Verified 02/20/25 09:59 Review of Systems 2 Const: Denies: fever(s) or chills Card: Reports: chest pain Resp: Denies: dyspnea GI: Denies: abdominal pain : Denies: dysuria, urinary frequency or urinary urgency Musc: Denies: neck pain or back pain Skin/Breast: Denies: rash PFSH ED 2 PFSH: Medical History Tobacco use disorder Heart failure with mildly reduced ejection fraction (HFmrEF) Elevated blood pressure reading with diagnosis of hypertension Alcoholism with alcohol dependence Diabetes type 2, controlled Neuropathy History of non-ST elevation myocardial infarction (NSTEMI) Peripheral vascular disease Atrial fibrillation Hypertension CHF (congestive heart failure) LVEF 64% 01/30/2025 Surgical History Hx of umbilical hernia repair 07/05/23 lap repair of umbilical hernia with mesh- Dr Obrien History of implantable cardioverter-defibrillator (ICD) placement Family History Mother CAD (coronary artery disease) Social History Smoking and tobacco/nicotine status: current every day tobacco/nicotine user cigarettes [ Other cigarette details: 1.5 pack per day x 40 years, currently down to 3-4 cig/day] Alcohol intake: current Alcohol intake frequency: 3 or more drinks per day Alcohol type: beer Substance/Drug Use: former Date of last use: marijuana in 2021 Household members: children Marital status: Single Number of children: 2 Number of grandchildren: 0 Current occupational status: disabled Special duc needs: No Agree to transfusion: Yes Physical Exam 2 Const: COMMON NORMALS: no acute distress GENERAL APPEARANCE: cooperative and comfortable ORIENTATION/CONSCIOUSNESS: Yes awake, Yes oriented to person, Yes oriented to place and Yes oriented to time HENMT: COMMON NORMALS: normocephalic, atraumatic and hearing grossly normal bilaterally HEAD & SCALP: normocephalic and atraumatic Resp: COMMON NORMALS: normal respiratory effort, No retractions, No use of accessory muscles and clear to auscultation bilaterally AUSCULTATION: clear to auscultation bilaterally Cardio: COMMON NORMALS: regular rate, regular rhythm and No murmurs present (Cardio) RATE: regular rate RHYTHM: regular rhythm GI: COMMON NORMALS: Soft to palpation and No hepatosplenomegaly present A USCULTATION: Yes normoactive bowel sounds PALPATION: Yes Soft to palpation, No Tenderness to palpation present (GI), No Guarding due to palpation present (GI) and Yes No hepatosplenomegaly present Extremity: COMMON NORMALS: normal to inspection, capillary refill normal, no clubbing, cyanosis or edema, no calf tenderness and no pedal edema Neuro: SENSORIUM/ORIENTATION: Yes oriented to person, Yes oriented to place and Yes oriented to time Skin: COMMON NORMALS: no rashes or lesions noted GENERAL SKIN EXAM: no rashes or lesions noted Course 2 Vital Signs: Vital signs: Vital Signs Temperature 97.7 F 02/25/25 05:13 Pulse Rate 65 02/25/25 09:23 Respiratory Rate 16 02/25/25 06:35 Blood Pressure 145/85 02/25/25 09:23 Pulse Oximetry 97 02/25/25 09:23 Oxygen Delivery Me thod Room Air 02/25/25 08:30 MDM - Chest Pain Medical Decision Making Interrogation of the defibrillator shows no events since the previous interrogation. Believe his complaint of discomfort is probably related to his recent clavicle is not had any arrhythmias since he arrived here. Continue same medications discharge home follow-up with orthopedics and with cardiology as previously scheduled. Medical Records I reviewed the patient's medical records. Lab Data I reviewed the patient's lab results. 02/25/25 05:10 02/25/25 05:10 Radiology Impressions Chest X-Ray 02/25/25 05:17 IMPRESSION: No acute chest pathology. Laboratory Results WBC 5.25 10^3/uL (3.29-11.43) 02/25/25 05:10 RBC 4.87 10^6/uL (3.85-5.65) 02/25/25 05:10 Hgb 12.90 g/dL (11.27-16.99) 02/25/25 05:10 Hct 40.7 % (37-53) 02/25/25 05:10 MCV 83.6 fl (82-101) 02/25/25 05:10 MCH 26.5 pg (27-33) L 02/25/25 05:10 MCHC 31.7 g/dL (30-55) 02/25/25 05:10 RDW 15.0 % (12.1-15.1) 02/25/25 05:10 Plt Count 177 10^3/cmm (157-399) 02/25/25 05:10 MPV 10.3 fL (7.4-10.4) 02/25/25 05:10 Neut % (Auto) 57.3 % 02/25/25 05:10 Lymph % (Auto) 29.1 % 02/25/25 05:10 [place] % (Auto) 8.6 % 02/25/25 05:10 Eos % (Auto) 4.4 % 02/25/25 05:10 Baso % (Auto) 0.4 % 02/25/25 05:10 Neut # (Auto) 3.01 10^3/uL (1.8-7.7) 02/25/25 05:10 Lymph # (Auto) 1.5 10^3/uL (0.8-4.8) 02/25/25 05:10 [place] # (Auto) 0.5 10^3/uL (0.2-0.9) 02/25/25 05:10 Eos # (Auto) 0.2 10^3/uL (0.0-0.8) 02/25/25 05:10 Baso # (Auto) 0.0 10^3/uL (0.0-0.1) 02/25/25 05:10 Nucleated RBC % (auto) 0 % 02/25/25 05:10 Nucleated RBCs # 0.0 /100WBC 02/25/25 05:10 Sodium 139 mmol/L (136-145) 02/25/25 05:10 Potassium 4.3 mmol/L (3.5-5.1) 02/25/25 05:10 Chloride 104 mmol/L (98-107) 02/25/25 05:10 Carbon Dioxide 23 mmol/L (22-29) 02/25/25 05:10 Anion Gap 16.3 (5-19) 02/25/25 05:10 BUN 11 mg/dL (6-20) 02/25/25 05:10 Creatinine 0.8 mg/dL (0.7-1.2) 02/25/25 05:10 GFR Calculation 99.3 mL/min (90-130) 02/25/25 05:10 Glucose 221 mg/dL (65-115) H 02/25/25 05:10 Calculated Osmolality 294 mOsm/kg (285-295) 02/25/25 05:10 Calcium 8.6 mg/dL (8.5-10.5) 02/25/25 05:10 Total Bilirubin 0.5 mg/dL (0.15-1.2) 02/25/25 05:10 AST 27 U/L (0-40) 02/25/25 05:10 ALT 28 U/L (0-41) 02/25/25 05:10 Alkaline Phosphatase 142 U/L (40-130) H 02/25/25 05:10 Troponin T Baseline 15 ng/L (0-15) 02/25/25 05:10 Troponin T 120 Minute 12.65 ng/L (0-15) 02/25/25 07:03 Delta Troponin T -2.35 ABS# (0-10) L 02/25/25 07:03 Total Protein 7.5 g/dL (6.6-8.7) 02/25/25 05:10 Albumin 3.8 g/dL (3.5-5.2) 02/25/25 05:10 Globulin 3.7 g/dL (1.3-4.6) 02/25/25 05:10 All radiology interpretation(s) finalized by discharge Discharge Plan Discharge Patient Disposition: Home Clinical Impression: ICD (implantable cardioverter-defibrillator) in place Closed fracture of left clavicle Qualifiers: Encounter type: sequela Clavicle location: shaft Fracture alignment: n ondisplaced Qualified Code(s): S42.025S - Nondisplaced fracture of shaft of left clavicle, sequela Condition: Stable Prescriptions: No Action acetaminophen [Tylenol] 325 mg tablet 650 mg PO QID PRN (Reason: Pain) Eliquis 5 mg tablet 5 mg PO BID Qty: 180 1RF metoprolol succinate 100 mg tablet extended release 24 hr 50 mg PO BID Qty: 90 1RF aspirin 81 mg tablet,delayed release (DR/EC) 81 mg PO DAILY Qty: 90 1RF Lipitor 10 mg tablet 10 mg PO DAILY Qty: 90 1RF Jardiance 10 mg tablet 10 mg PO DAILY Qty: 90 1RF potassium chloride 20 mEq tablet extended release 20 meq PO BID Qty: 180 1RF Entresto 49-51 mg tablet 1 tab PO BID Qty: 90 1RF spironolactone 25 mg tablet 12.5 mg PO DAILY Qty: 90 1RF thiamine HCl (vitamin B1) 100 mg tablet 100 mg PO DAILY Qty: 90 1RF folic acid 1 mg Tablet 1 mg PO DAILY Qty: 30 0RF multivitamin with folic acid [Thera] 400 mcg Tablet 1 tab PO DAILY Qty: 30 0RF isosorbide mononitrate 30 mg tablet extended release 24 hr 30 mg PO DAILY Qty: 30 0RF hydrocodone-acetaminophen 5-325 mg tablet 1 - 2 tab PO .Q4-6H Qty: 40 0RF Discharge Orders: Discharge ED (Routine); Ordered 02/25/25 Ordered By: Carlos Alberto Gómez Referrals: Oliver Dempsey MD [Primary Care Provider, Family Practice] Discharge Diet: Usual diet Discharge Activity: Increase activity as tolerated Patient Instructions: Opioid Safety, Pain Management Activity Restrictions/Additional Instructions: Thank you for choosing [facility] for your healthcare needs today. It is very important that you follow up as instructed or that you return to the Emergency Department should you have concerns or if your condition changes or worsens in any way. You were seen in the emergency room with complaints of an episode of chest discomfort. We did analyze your defibrillator there were no discharges from it suspect the pain you had is related to your recent clavicle surgery cardiac enzymes and EKG do not show any significant abnormality continue care for the clavicle fracture as previously advised. 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
[2025-02-25 05:42] LABS: Troponin(5th) Baseline 15 ng/L (0-15)
[2025-02-25 05:44] LABS: Alanine Aminotransferase 28 U/L (0-41); Albumin Level 3.8 g/dL (3.5-5.2); Alkaline Phosphatase 142 U/L (40-130); Anion Gap 16.3 (5-19); Aspartate Amino Transferase 27 U/L (0-40); Blood Urea Nitrogen 11 mg/dL (6-20); Calcium 8.6 mg/dL (8.5-10.5); Carbon Dioxide 23 mmol/L (22-29); Chloride 104 mmol/L (98-107); Creatinine Clr Calc Pharmacy 101.6623; Globulin 3.7 g/dL (1.3-4.6); Glomerular Filtration Rate 99.3 mL/min (90-130); Glucose 221 mg/dL (65-115); Osmolality Calculated 294 mOsm/kg (285-295); Potassium 4.3 mmol/L (3.5-5.1); Sodium 139 mmol/L (136-145); Total Bilirubin 0.5 mg/dL (0.15-1.2); Total Protein 7.5 g/dL (6.6-8.7)
[2025-02-25] MEDS: HYDROcodone-acetaminophen 5-325 mg Tablet 1 TAB PO (05:54)
[2025-02-25 07:32] LABS: Troponin 5 2HR 12.65 ng/L (0-15)
[2025-02-25 07:36] LABS: Troponin 5 2HR Delta -2.35 ABS# (0-10)
== END 2025-02-25 09:25 | disposition home or self-care (01) ==
PROVIDERS: Student in an Organized Health Care Education/Training Program; Emergency Provider Family Medicine; PCP Family Medicine
DX: Z95.810 Presence of automatic (implantable) cardiac defibrillator (principal); S42.025 Nondisplaced fracture of shaft of left clavicle; X58.XXXS Exposure to other specified factors, sequela; Z79.01 Long term (current) use of anticoagulants; Z79.82 Long term (current) use of aspirin; F17.210 Nicotine dependence, cigarettes, uncomplicated; E11.9 Type 2 diabetes mellitus without complications; I11.0 Hypertensive heart disease with heart failure; I50.9 Heart failure, unspecified
CPT/HCPCS: 71045; 80053; 84484; 85025; 93005; 99285; J9999

== ENCOUNTER → 2025-02-26 08:42 | Outpatient (BNVA) | payer MEDICAID, SELFPAY | PROVIDERS: PCP Family Medicine; Visit Provider Thoracic Surgery (Cardiothoracic Vascular Surgery) | DX: I87.313 Chronic venous hypertension (idiopathic) with ulcer of bilateral lower extremity (principal) | CPT/HCPCS: 29581 ==

== ENCOUNTER → 2025-03-02 08:44 | Outpatient (BNVA) | payer MEDICAID, SELFPAY | PROVIDERS: PCP Family Medicine; Visit Provider Thoracic Surgery (Cardiothoracic Vascular Surgery) | DX: I96 Gangrene, not elsewhere classified (principal); I87.2 Venous insufficiency (chronic) (peripheral); L97.821 Non-pressure chronic ulcer of other part of left lower leg limited to breakdown of skin | CPT/HCPCS: 97597; 97598 ==

== ENCOUNTER → 2025-03-10 09:15 | Outpatient (BNVA) | payer MEDICAID, SELFPAY | PROVIDERS: PCP Family Medicine; Visit Provider Thoracic Surgery (Cardiothoracic Vascular Surgery) | DX: I96 Gangrene, not elsewhere classified (principal); I87.2 Venous insufficiency (chronic) (peripheral); L97.821 Non-pressure chronic ulcer of other part of left lower leg limited to breakdown of skin; L97.811 Non-pressure chronic ulcer of other part of right lower leg limited to breakdown of skin | CPT/HCPCS: 97597; 97598; A6210; A6252 ==

== ENCOUNTER → 2025-03-13 08:43 | Outpatient (BNVA) | payer MEDICAID, SELFPAY | PROVIDERS: PCP Family Medicine; Visit Provider Thoracic Surgery (Cardiothoracic Vascular Surgery) | DX: I87.313 Chronic venous hypertension (idiopathic) with ulcer of bilateral lower extremity (principal) | CPT/HCPCS: A6210; A6253 ==

== ENCOUNTER 2025-03-14 17:49 | Emergency (ER) | payer MEDICAID, SELFPAY ==
--- NOTE | 2025-03-14 17:55 | ECG_ITS ---
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 Measurements Intervals [place] Rate: 80 P: 63 NV: 81 QRS: 14 QRSD: 156 T: 28 QT: 427 QTc: 495 Interpretive Statements ELECTRONIC VENTRICULAR PACEMAKER Compared to ECG 02/25/2025 05:19:33 Previous echo report previous echo report no significant change Electronically Signed On 03-15-2025 19:21:35 CDT by Dina Aldrich M.D. [email or web address]
--- NOTE | 2025-03-14 17:55 | XRR_ITS ---
PROCEDURE INFORMATION: Exam: XR Left Shoulder Exam date and time: 03/14/2025 6:23 PM Age: 59 years old Clinical indication: Pain; Shoulder; Left; Prior surgery; Surgery date: <1 month; Surgery type: Lt clavicle orif; Additional info: Lt shoulder pain; HX lt clavicle orif x 3 weeks ago TECHNIQUE: Imaging protocol: Radiologic exam of the left shoulder. Views: 2 or more views. COMPARISON: CR (CHEST, ) 02/07/2025 9:49 PM FINDINGS: Bones/joints: Post reduction and internal fixation left clavicular fracture. Hardware appears intact. Alignment is anatomic. Soft tissues: The soft tissues are within normal limits. XR/XR shoulder LT min 2V* [id number] IMPRESSION: Status post ORIF of left clavicular fracture with intact hardware and in anatomic alignment.
[2025-03-14 18:00] VITALS: BP 92/53; PULSE 84; RESP 14; TEMP 36.9; O2SAT 91; BMI 27.3
--- NOTE | 2025-03-14 18:32 | XRR_ITS ---
PROCEDURE INFORMATION: Exam: XR Chest Exam date and time: 03/14/2025 7:01 PM Age: 59 years old Clinical indication: Shortness of breath; Prior surgery; Surgery date: 6+ months; Surgery type: Pacemaker, left clavicle; Additional info: SOB TECHNIQUE: Imaging protocol: Radiologic exam of the chest. Views: 1 view. COMPARISON: CR (CHEST, ) 02/25/2025 5:19 AM FINDINGS: Tubes, catheters and devices: Left chest wall implantable pacer/defibrillator. Lungs: No pulmonary consolidation. Pleural spaces: No pleural effusion or pneumothorax. Heart/Mediastinum: Heart size is within normal limits. Bones/joints: ORIF of left clavicular fracture. No acute osseous abnormalities are seen. XR/XR chest 1V portable [id number] IMPRESSION: No acute cardiopulmonary disease.
[2025-03-14] MEDS: sodium chloride 0.9% 1,000 ML 999 ML IV ×2 (18:56→20:54)
[2025-03-14 19:12] LABS: Basophils % 0.4 %; Eosinophils # 0.2 10^3/uL (0.0-0.8); Eosinophils % 3.2 %; Hematocrit 38.4 % (37-53); Lymphocytes # 1.8 10^3/uL (0.8-4.8); Mean Corpuscular Volume 87.1 fl (82-101); Mean Platelet Volume 10.5 fL (7.4-10.4); Monocytes # 0.4 10^3/uL (0.2-0.9); Monocytes % 7.4 %; Neutrophils # 2.42 10^3/uL (1.8-7.7); Neutrophils % 50.8 %; Nucleated Red Blood Cells % 0 %; Platelet Count 144 10^3/cmm (157-399); Red Blood Count 4.41 10^6/uL (3.85-5.65); Red Cell Distribution Width 14.4 % (12.1-15.1); White Blood Count 4.76 10^3/uL (3.29-11.43)
[2025-03-14 19:32] LABS: Alanine Aminotransferase 26 U/L (0-41); Albumin Level 3.4 g/dL (3.5-5.2); Alcohol Level 201 mg/dL (0-10); Alkaline Phosphatase 135 U/L (40-130); Anion Gap 17.9 (5-19); Aspartate Amino Transferase 25 U/L (0-40); Blood Urea Nitrogen 12 mg/dL (6-20); Calcium 8.8 mg/dL (8.5-10.5); Carbon Dioxide 16 mmol/L (22-29); Chloride 110 mmol/L (98-107); Creatine Phosphokinase 34 U/L (39-308); Creatinine Clr Calc Pharmacy 90.3665; Globulin 3.6 g/dL (1.3-4.6); Glomerular Filtration Rate 86.7 mL/min (90-130); Glucose 121 mg/dL (65-115); Magnesium 1.9 mg/dL (1.7-2.3); Osmolality Calculated 291 mOsm/kg (285-295); Potassium 3.9 mmol/L (3.5-5.1); Sodium 140 mmol/L (136-145); Total Bilirubin 0.2 mg/dL (0.15-1.2)
[2025-03-14 19:33] LABS: INR 0.97 (0.8-1.2)
[2025-03-14 19:47] LABS: Bilirubin Urine Negative (Negative); Blood Urine Negative (Negative); Glucose Urine UA Negative (Normal); Ketones Urine Trace (Negative); Leukocyte Esterase Urine Negative (Negative); Nitrate Urine Negative (Negative); Protein Urine Trace (Negative); Specific Gravity, Urine 1.023 (1.005-1.030); Urine Appearance Clear (CLEAR); Urine Color Dark Yellow (Yellow); pH Urine 5.5 (5-7)
[2025-03-14 19:52] LABS: Add Urine Microscopic? YES; Bacteria Urine None Seen /hpf; Hyaline Casts Urine 11.57 /lpf; RBC Urine 0-2 /hpf (0-2); Squamous Epithelial Cell Urine 0-5 /hpf (0-5); WBC Urine 0-5 /hpf (0-5)
[2025-03-14 19:54] LABS: Amphetamines Screen Urine Negative (Negative); Barbiturates Screen Urine Negative (Negative); Benzodiazepines Screen Urine Negative (Negative); Cocaine Screen Urine Negative (Negative); Opiate Screen Urine Negative (Negative); PCP Screen Urine Negative (Negative); THC Screen Urine Negative (Negative)
--- NOTE | 2025-03-14 19:55 | W.ED.EXTPRO ---
HPI - Extremity Problem General: Chief complaint: Extremity Problem,Nontraumatic Stated complaint: left shoulder pain Time Seen by Provider: 03/14/25 17:53 History of Present Illness: 59-year-old male patient with a history of alcohol use. He presents with alcohol intoxication. He also complains of left shoulder pain. He is anticoagulated. He is awake and talking, although this patient's speech is quite slurred. He is a poor historian. Related Data Home Medications ?Medication ?Instructions ?Recorded ?Confirmed acetaminophen 325 mg tablet 650 mg PO QID PRN Pain 01/07/25 03/05/25 (Tylenol) Previous Rx's ?Medication ?Instructions ?Recorded apixaban 5 mg tablet (Eliquis) 5 mg PO BID #180 tabs 01/07/25 Held on 02/20/25. Instructions: Resume on 02/22/25. aspirin 81 mg tablet,delayed 81 mg PO DAILY #90 tabs 01/07/25 release Held on 02/20/25. Instructions: Resume on 02/22/25. atorvastatin 10 mg tablet (Lipitor) 10 mg PO DAILY #90 tabs 01/07/25 empagliflozin 10 mg tablet 10 mg PO DAILY #90 tabs 01/07/25 (Jardiance) metoprolol succinate 100 mg 50 mg (1/2 x 100 mg) PO BID #90 01/07/25 tablet,extended release 24 hr tabs potassium chloride 20 mEq 20 meq PO BID #180 tabs 01/07/25 tablet,extended release sacubitril 49 mg-valsartan 51 mg 1 tab PO BID #90 tabs 01/07/25 tablet (Entresto) spironolactone 25 mg tablet 12.5 mg (1/2 x 25 mg) PO DAILY #90 01/07/25 tabs thiamine HCl (vitamin B1) 100 mg 100 mg PO DAILY #90 tabs 01/08/25 tablet folic acid 1 mg tablet 1 mg PO DAILY #30 tabs 02/01/25 multivitamin with folic acid 400 1 tab PO DAILY #30 tabs 02/01/25 mcg tablet (Thera) isosorbide mononitrate 30 mg 30 mg PO DAILY #30 tabs 02/02/25 tablet,extended release 24 hr hydrocodone 5 mg-acetaminophen 325 1 - 2 tab PO .Q4-6H #40 tabs 02/20/25 mg tablet Allergies Allergy/AdvReac Type Severity Reaction Status Date / Time No Known Allergies Allergy Verified 03/05/25 15:01 PFSH ED PFSH: Medical History Tobacco use disorder Heart failure with mildly reduced ejection fraction (HFmrEF) Elevated blood pressure reading with diagnosis of hypertension Alcoholism with alcohol dependence Diabetes type 2, controlled Neuropathy History of non-ST elevation myocardial infarction (NSTEMI) Peripheral vascular disease Atrial fibrillation Hypertension CHF (congestive heart failure) LVEF 64% 01/30/2025 Surgical History Hx of umbilical hernia repair 07/05/23 lap repair of umbilical hernia with mesh- Dr Obrien History of implantable cardioverter-defibrillator (ICD) placement Family History Mother CAD (coronary artery disease) Social History Smoking and tobacco/nicotine status: current every day tobacco/nicotine user cigarettes [ Other cigarette details: 1.5 pack per day x 40 years, currently down to 3-4 cig/day] Alcohol intake: current Alcohol intake frequency: 3 or more drinks per day Alcohol type: beer Substance/Drug Use: former Date of last use: marijuana in 2021 Household members: children Marital status: Single Number of children: 2 Number of grandchildren: 0 Current occupational status: disabled Special duc needs: No Agree to transfusion: Yes Physical Exam Const: COMMON NORMALS: no acute distress GENERAL APPEARANCE: cooperative, disheveled and lethargic ORIENTATION/CONSCIOUSNESS: Yes awake, Yes oriented to person, Yes oriented to place and Yes lethargic HENMT: COMMON NORMALS: normocephalic, atraumatic and Normal external nose present HEAD & SCALP: normocephalic and atraumatic FACE & SINUS: normal facial exam and face symmetric NOSE: Normal external nose present Eye: COMMON NORMALS: Equal, round and reactive pupils present and EOMs intact bilaterally PUPIL: Yes Equal, round and reactive pupils present Neck/C-Spine: GENERAL: Yes trachea midline Chest: CHEST: Yes Symmetrical chest wall rise OTHER: Incision over clavicle, and shoulder joint well-approximated and without significant cellulitis or drainage. Pacemaker site is tender, but not swollen or red. Resp: COMMON NORMALS: normal respiratory effort, No retractions and No use of accessory muscles AUSCULTATION: wheezes (Intermittent bilateral) Cardio: COMMON NORMALS: regular rate and regular rhythm RATE: regular rate RHYTHM: regular rhythm GI: COMMON NORMALS: Normal to inspection, nondistended, normoactive bowel sounds present Extremity: COMMON NORMALS: no pedal edema Neuro: MALATHI COMA SCALE: document GCS findings [place] coma scale eye opening: Spontaneous Malathi coma scale verbal response: Orientated Malathi coma scale motor response: Obey commands [place] coma scale total score: 15 SENSORIUM/ORIENTATION: Yes oriented to person, Yes oriented to place and Yes lethargic SENSORY EXAM: Yes extremities (intact) Psych: COMMON NORMALS: speech normal SPEECH: Yes normal speech Skin: COMMON NORMALS: no rashes or lesions noted GENERAL SKIN EXAM: no rashes or lesions noted Course Vital Signs: Vital signs: Vital Signs Temperature 98.4 F 03/14/25 18:00 Pulse Rate 84 03/14/25 21:45 Respiratory Rate 17 03/14/25 21:45 Blood Pressure 137/81 03/14/25 21:45 Pulse Oximetry 95 03/14/25 21:45 Oxygen Delivery Me thod Room Air 03/14/25 20:55 MDM - Extremity (Nontraumatic) Medical Decision Making This patient is intoxicated. His platelet count is 144. His CBC is normal. His vitals are essentially normal here. His bicarbonate level is 16 indicating dehydration. He is given a bolus of fluid. His ethyl alcohol is 201. Acidosis could be from this as well. Urinalysis is negative. Urine drug screen is otherwise negative. He is given IV thiamine as well. He has been up to the bathroom without assistance. He will be discharged to home with alcohol intoxication. Lab Data 03/14/25 18:52 03/14/25 18:52 Radiology Impressions Shoulder X-Ray 03/14/25 17:55 IMPRESSION: Status post ORIF of left clavicular fracture with intact hardware and in anatomic alignment. Chest X-Ray 03/14/25 18:32 IMPRESSION: No acute cardiopulmonary disease. Laboratory Results WBC 4.76 10^3/uL (3.29-11.43) 03/14/25 18:52 RBC 4.41 10^6/uL (3.85-5.65) 03/14/25 18:52 Hgb 11.90 g/dL (11.27-16.99) 03/14/25 18:52 Hct 38.4 % (37-53) 03/14/25 18:52 MCV 87.1 fl (82-101) 03/14/25 18:52 MCH 27.0 pg (27-33) 03/14/25 18:52 MCHC 31.0 g/dL (30-55) 03/14/25 18:52 RDW 14.4 % (12.1-15.1) 03/14/25 18:52 Plt Count 144 10^3/cmm (157-399) L 03/14/25 18:52 MPV 10.5 fL (7.4-10.4) H 03/14/25 18:52 Neut % (Auto) 50.8 % 03/14/25 18:52 Lymph % (Auto) 38.0 % 03/14/25 18:52 [place] % (Auto) 7.4 % 03/14/25 18:52 Eos % (Auto) 3.2 % 03/14/25 18:52 Baso % (Auto) 0.4 % 03/14/25 18:52 Neut # (Auto) 2.42 10^3/uL (1.8-7.7) 03/14/25 18:52 Lymph # (Auto) 1.8 10^3/uL (0.8-4.8) 03/14/25 18:52 [place] # (Auto) 0.4 10^3/uL (0.2-0.9) 03/14/25 18:52 Eos # (Auto) 0.2 10^3/uL (0.0-0.8) 03/14/25 18:52 Baso # (Auto) 0.0 10^3/uL (0.0-0.1) 03/14/25 18:52 Nucleated RBC % (auto) 0 % 03/14/25 18:52 Nucleated RBCs # 0.0 /100WBC 03/14/25 18:52 PT 13.50 SECONDS (12.1-14.9) 03/14/25 18:52 INR 0.97 (0.8-1.2) 03/14/25 18:52 Sodium 140 mmol/L (136-145) 03/14/25 18:52 Potassium 3.9 mmol/L (3.5-5.1) 03/14/25 18:52 Chloride 110 mmol/L (98-107) H 03/14/25 18:52 Carbon Dioxide 16 mmol/L (22-29) L 03/14/25 18:52 Anion Gap 17.9 (5-19) 03/14/25 18:52 BUN 12 mg/dL (6-20) 03/14/25 18:52 Creatinine 0.9 mg/dL (0.7-1.2) 03/14/25 18:52 GFR Calculation 86.7 mL/min (90-130) L 03/14/25 18:52 Glucose 121 mg/dL (65-115) H 03/14/25 18:52 Calculated Osmolality 291 mOsm/kg (285-295) 03/14/25 18:52 Calcium 8.8 mg/dL (8.5-10.5) 03/14/25 18:52 Magnesium 1.9 mg/dL (1.7-2.3) 03/14/25 18:52 Total Bilirubin 0.2 mg/dL (0.15-1.2) 03/14/25 18:52 AST 25 U/L (0-40) 03/14/25 18:52 ALT 26 U/L (0-41) 03/14/25 18:52 Alkaline Phosphatase 135 U/L (40-130) H 03/14/25 18:52 Creatine Kinase 34 U/L (39-308) L 03/14/25 18:52 Total Protein 7.0 g/dL (6.6-8.7) 03/14/25 18:52 Albumin 3.4 g/dL (3.5-5.2) L 03/14/25 18:52 Globulin 3.6 g/dL (1.3-4.6) 03/14/25 18:52 Urine Color Dark yellow (Yellow) A 03/14/25 19:38 Urine Appearance Clear (CLEAR) 03/14/25 19:38 Urine pH 5.5 (5-7) 03/14/25 19:38 Ur Specific [place] 1.023 (1.005-1.030) 03/14/25 19:38 Urine Protein Trace (Negative) A 03/14/25 19:38 Urine Glucose (UA) Negative (Normal) 03/14/25 19:38 Urine Ketones Trace (Negative) 03/14/25 19:38 Urine Blood Negative (Negative) 03/14/25 19:38 Urine Nitrate Negative (Negative) 03/14/25 19:38 Urine Bilirubin Negative (Negative) 03/14/25 19:38 Urine Urobilinogen 1.0 mg/dL (Negative) 03/14/25 19:38 Ur Leukocyte Esterase Negative (Negative) 03/14/25 19:38 Urine RBC 0-2 /hpf (0-2) 03/14/25 19:38 Urine WBC 0-5 /hpf (0-5) 03/14/25 19:38 Ur Squamous Epith Cells 0-5 /hpf (0-5) 03/14/25 19:38 Amorphous Sediment Not Reportable 03/14/25 19:38 Urine Bacteria None seen /hpf (NONE) 03/14/25 19:38 Hyaline Casts 11.57 /lpf 03/14/25 19:38 Urine Opiates Screen Negative ng/mL (Negative) 03/14/25 19:38 Ur Barbiturates Screen Negative ng/mL (Negative) 03/14/25 19:38 Ur Phencyclidine Scrn Negative ng/mL (Negative) 03/14/25 19:38 Ur Amphetamines Screen Negative ng/mL (Negative) 03/14/25 19:38 U Benzodiazepines Scrn Negative ng/mL (Negative) 03/14/25 19:38 Urine Cocaine Screen Negative ng/mL (Negative) 03/14/25 19:38 U Marijuana (THC) Screen Negative ng/mL (Negative) 03/14/25 19:38 Ethyl Alcohol 201 mg/dL (0-10) H 03/14/25 18:52 All radiology interpretation(s) finalized by discharge Discharge Plan Discharge Patient Disposition: Home Clinical Impression: Atrial fibrillation, Alcoholism with alcohol dependence, Alcohol intoxication Condition: Stable Prescriptions: No Action acetaminophen [Tylenol] 325 mg tablet 650 mg PO QID PRN (Reason: Pain) Eliquis 5 mg tablet 5 mg PO BID Qty: 180 1RF metoprolol succinate 100 mg tablet extended release 24 hr 50 mg PO BID Qty: 90 1RF aspirin 81 mg tablet,delayed release (DR/EC) 81 mg PO DAILY Qty: 90 1RF Lipitor 10 mg tablet 10 mg PO DAILY Qty: 90 1RF Jardiance 10 mg tablet 10 mg PO DAILY Qty: 90 1RF potassium chloride 20 mEq tablet extended release 20 meq PO BID Qty: 180 1RF Entresto 49-51 mg tablet 1 tab PO BID Qty: 90 1RF spironolactone 25 mg tablet 12.5 mg PO DAILY Qty: 90 1RF thiamine HCl (vitamin B1) 100 mg tablet 100 mg PO DAILY Qty: 90 1RF folic acid 1 mg Tablet 1 mg PO DAILY Qty: 30 0RF multivitamin with folic acid [Thera] 400 mcg Tablet 1 tab PO DAILY Qty: 30 0RF isosorbide mononitrate 30 mg tablet extended release 24 hr 30 mg PO DAILY Qty: 30 0RF hydrocodone-acetaminophen 5-325 mg tablet 1 - 2 tab PO .Q4-6H Qty: 40 0RF Discharge Orders: Discharge ED (Routine); Ordered 03/14/25 Ordered By: Abel Pollack Referrals: Oliver Dempsey MD [Primary Care Provider, Family Practice] - 4-7 days Patient Instructions: Alcohol Intoxication (ED), Opioid Safety, Pain Management Activity Restrictions/Additional Instructions: Avoid alcohol. Hydrate with clear nonalcoholic liquids. Return for problems. Call your doctor on Sunday. Print Language: Angolan Coding Level of Care Code ED Edge Stainer Machine for Cecily Wood
[2025-03-14 20:06] LABS: UA Slide Review UA Slide Review Perf
[2025-03-14] MEDS: thiamine 100 mg/mL 2mL SDV IVP (20:54)
[2025-03-14 20:55] VITALS: BP 139/85; PULSE 77; RESP 17; O2SAT 96
[2025-03-14 21:45] VITALS: BP 137/81; PULSE 84; RESP 17; O2SAT 95
== END 2025-03-14 21:50 | disposition home or self-care (01) ==
PROVIDERS: Emergency Provider Emergency Medicine; PCP Family Medicine
DX: I48.91 Unspecified atrial fibrillation (principal); Z79.01 Long term (current) use of anticoagulants; Z79.82 Long term (current) use of aspirin; F10.229 Alcohol dependence with intoxication, unspecified; Y90.7 Blood alcohol level of 200-239 mg/100 ml; F17.210 Nicotine dependence, cigarettes, uncomplicated; E11.9 Type 2 diabetes mellitus without complications; I11.0 Hypertensive heart disease with heart failure; I50.9 Heart failure, unspecified
CPT/HCPCS: 36415; 71045; 73030; 80053; 80306; 80307; 81001; 82550; 83735; 85025; 85610; 93005; 96361; 96374; 99285; J3411; J7030

== ENCOUNTER → 2025-03-17 08:43 | Outpatient (BNVA) | payer MEDICAID, SELFPAY | PROVIDERS: PCP Family Medicine; Visit Provider Thoracic Surgery (Cardiothoracic Vascular Surgery) | DX: I96 Gangrene, not elsewhere classified (principal); I87.2 Venous insufficiency (chronic) (peripheral); L97.821 Non-pressure chronic ulcer of other part of left lower leg limited to breakdown of skin; L97.811 Non-pressure chronic ulcer of other part of right lower leg limited to breakdown of skin | CPT/HCPCS: 97597; 97598 ==

== ENCOUNTER → 2025-03-19 08:43 | Outpatient (BNVA) | payer MEDICAID, SELFPAY | PROVIDERS: PCP Family Medicine; Visit Provider Thoracic Surgery (Cardiothoracic Vascular Surgery) | DX: I87.313 Chronic venous hypertension (idiopathic) with ulcer of bilateral lower extremity (principal) | CPT/HCPCS: 29581; A6210; A6253 ==

== ENCOUNTER → 2025-03-24 08:45 | Outpatient (BNVA) | payer MEDICAID, SELFPAY | PROVIDERS: PCP Family Medicine; Visit Provider Thoracic Surgery (Cardiothoracic Vascular Surgery) | DX: I96 Gangrene, not elsewhere classified (principal); I87.2 Venous insufficiency (chronic) (peripheral); L97.821 Non-pressure chronic ulcer of other part of left lower leg limited to breakdown of skin; L97.811 Non-pressure chronic ulcer of other part of right lower leg limited to breakdown of skin | CPT/HCPCS: 97597; 97598; A6210; A6252 ==

== ENCOUNTER → 2025-03-31 08:44 | Outpatient (BNVA) | payer MEDICAID, SELFPAY | PROVIDERS: PCP Family Medicine; Visit Provider Thoracic Surgery (Cardiothoracic Vascular Surgery) | DX: I96 Gangrene, not elsewhere classified (principal); I87.2 Venous insufficiency (chronic) (peripheral); L97.821 Non-pressure chronic ulcer of other part of left lower leg limited to breakdown of skin; L97.811 Non-pressure chronic ulcer of other part of right lower leg limited to breakdown of skin | CPT/HCPCS: 97597; 97598; A6210; A6253 ==

== ENCOUNTER → 2025-04-02 10:47 | Outpatient (BNVA) | payer MEDICAID, SELFPAY | PROVIDERS: PCP Family Medicine; Visit Provider Orthopaedic Surgery | DX: S42.022D Displaced fracture of shaft of left clavicle, subsequent encounter for fracture with routine healing (principal); X58.XXXD Exposure to other specified factors, subsequent encounter | CPT/HCPCS: 73000; 99024 ==

== ENCOUNTER → 2025-04-03 08:44 | Outpatient (BNVA) | payer MEDICAID, SELFPAY | PROVIDERS: PCP Family Medicine; Visit Provider Thoracic Surgery (Cardiothoracic Vascular Surgery) | DX: I96 Gangrene, not elsewhere classified (principal); I87.2 Venous insufficiency (chronic) (peripheral); L97.821 Non-pressure chronic ulcer of other part of left lower leg limited to breakdown of skin; L97.811 Non-pressure chronic ulcer of other part of right lower leg limited to breakdown of skin | CPT/HCPCS: 29581; A6210; A6253 ==

== ENCOUNTER → 2025-04-07 08:44 | Outpatient (BNVA) | payer MEDICAID, SELFPAY | PROVIDERS: PCP Family Medicine; Visit Provider Thoracic Surgery (Cardiothoracic Vascular Surgery) | DX: I87.313 Chronic venous hypertension (idiopathic) with ulcer of bilateral lower extremity (principal) | CPT/HCPCS: 29581; A6210; A6253 ==

== ENCOUNTER → 2025-04-10 08:31 | Outpatient (BNVA) | payer MEDICAID, SELFPAY | PROVIDERS: PCP Family Medicine; Visit Provider Thoracic Surgery (Cardiothoracic Vascular Surgery) | DX: I96 Gangrene, not elsewhere classified (principal); I87.2 Venous insufficiency (chronic) (peripheral); L97.821 Non-pressure chronic ulcer of other part of left lower leg limited to breakdown of skin; L97.811 Non-pressure chronic ulcer of other part of right lower leg limited to breakdown of skin | CPT/HCPCS: 97597; 97598 ==

== ENCOUNTER → 2025-04-14 08:46 | Outpatient (BNVA) | payer MEDICAID, SELFPAY | PROVIDERS: PCP Family Medicine; Visit Provider Thoracic Surgery (Cardiothoracic Vascular Surgery) | DX: I96 Gangrene, not elsewhere classified (principal); I87.2 Venous insufficiency (chronic) (peripheral); L97.821 Non-pressure chronic ulcer of other part of left lower leg limited to breakdown of skin; L97.811 Non-pressure chronic ulcer of other part of right lower leg limited to breakdown of skin | CPT/HCPCS: 29581; 97597; 97598; A6210; A6252 ==

== ENCOUNTER → 2025-04-17 08:35 | Outpatient (BNVA) | payer MEDICAID, SELFPAY | PROVIDERS: PCP Family Medicine; Visit Provider Thoracic Surgery (Cardiothoracic Vascular Surgery) | DX: I87.313 Chronic venous hypertension (idiopathic) with ulcer of bilateral lower extremity (principal) | CPT/HCPCS: 29581; A6210; A6252 ==

== ENCOUNTER → 2025-04-21 08:39 | Outpatient (BNVA) | payer MEDICAID, SELFPAY | PROVIDERS: PCP Family Medicine; Visit Provider Thoracic Surgery (Cardiothoracic Vascular Surgery) | DX: I96 Gangrene, not elsewhere classified (principal); I87.2 Venous insufficiency (chronic) (peripheral); L97.821 Non-pressure chronic ulcer of other part of left lower leg limited to breakdown of skin; L97.811 Non-pressure chronic ulcer of other part of right lower leg limited to breakdown of skin | CPT/HCPCS: 97597; A6210; A6253 ==

== ENCOUNTER → 2025-04-24 08:44 | Outpatient (BNVA) | payer MEDICAID, SELFPAY | PROVIDERS: PCP Family Medicine; Visit Provider Thoracic Surgery (Cardiothoracic Vascular Surgery) | DX: I96 Gangrene, not elsewhere classified (principal); I87.2 Venous insufficiency (chronic) (peripheral); L97.821 Non-pressure chronic ulcer of other part of left lower leg limited to breakdown of skin; L97.811 Non-pressure chronic ulcer of other part of right lower leg limited to breakdown of skin | CPT/HCPCS: 29581; A6210; A6253 ==

== ENCOUNTER → 2025-05-05 13:13 | Outpatient (BNVA) | payer MEDICAID, SELFPAY | PROVIDERS: PCP Family Medicine; Visit Provider Thoracic Surgery (Cardiothoracic Vascular Surgery) | DX: I96 Gangrene, not elsewhere classified (principal); I87.2 Venous insufficiency (chronic) (peripheral); L97.821 Non-pressure chronic ulcer of other part of left lower leg limited to breakdown of skin; L97.811 Non-pressure chronic ulcer of other part of right lower leg limited to breakdown of skin | CPT/HCPCS: 97597; A6210 ==

== ENCOUNTER → 2025-05-14 11:00 | Outpatient (BNVA) | payer MEDICAID, SELFPAY | PROVIDERS: PCP Family Medicine; Visit Provider Orthopaedic Surgery | DX: S42.022D Displaced fracture of shaft of left clavicle, subsequent encounter for fracture with routine healing (principal); X58.XXXD Exposure to other specified factors, subsequent encounter | CPT/HCPCS: 73000; 99024 ==

== ENCOUNTER → 2025-05-19 10:15 | Outpatient (BNVA) | payer MEDICAID, SELFPAY | PROVIDERS: PCP Family Medicine; Visit Provider Thoracic Surgery (Cardiothoracic Vascular Surgery) | DX: I96 Gangrene, not elsewhere classified (principal); I87.2 Venous insufficiency (chronic) (peripheral); L97.821 Non-pressure chronic ulcer of other part of left lower leg limited to breakdown of skin; L97.811 Non-pressure chronic ulcer of other part of right lower leg limited to breakdown of skin | CPT/HCPCS: 97597 ==

== ENCOUNTER → 2025-05-22 10:50 | Outpatient (BNVA) | payer MEDICAID, SELFPAY | PROVIDERS: PCP Family Medicine; Referring Provider Thoracic Surgery (Cardiothoracic Vascular Surgery); Visit Provider Thoracic Surgery (Cardiothoracic Vascular Surgery) | DX: I87.313 Chronic venous hypertension (idiopathic) with ulcer of bilateral lower extremity (principal) | CPT/HCPCS: 29581; A6210; A6251 ==

== ENCOUNTER 2025-05-26 07:20 | Inpatient (IN) | payer MEDICAID, SELFPAY ==
--- OUTSIDE RECORDS SUMMARY | 2024-07-09 06:00 | XMS_ITS ---
Author Organization [facility] Address [address] [place] [address] [phone] Care Team Providers Care Service Delivery Supervisor Name Role Phone Zack Geller Primary Care Provider Loreto Ahn Unavailable [phone] REASON FOR VISIT [facility] f/u, DM f/u, A1c needed Social History Sex Assigned At : Social History Observation Description Sex Assigned At Male Encounters Encounter Location Date Provider Diagnosis [facility] [address] [place] [address] [phone] 07/09/2024 Loreto Ahn Plan Of Treatment No Information Progress Notes * Gabe SOLORZANOOB: 7 (59 yo M)Acc No.[id number]:07/09/2024 Patient: Zulma NAYAKTIMOTEO Andrew Provider: Venkatesh Ahn APN :1965 A ge:58 Y S ex:Male Date:07/09/2024 Address:[address] [place], [place] [phone] Pcp:Zack Geller Subjective: * Chief Complaints: * 1 . [facility] f/u, DM f/u, A1c needed. * Medical History: Objective: * Vitals: Assessment: Plan: * Treatment: * * The named appointment provid er may or may not be the originator of this progress note, and it is not deemed complete until electronically signed by the appointment provider. Sign off status: Pending * Provider: Venkatesh Ahn APN Date: 1 Generated for Sergey garvey/Jennifer/eTransmitting on: 0 05/26/2025 07:26 AM CDT
--- OUTSIDE RECORDS SUMMARY | 2024-09-25 10:15 | XMS_ITS ---
Author Organization [facility] Address [address] [place] [address] [phone] Care Team Providers Care Benefit Authorizer Name Role Phone Zack Geller Primary Care Provider REASON FOR VISIT DM f/u Social History Sex Assigned At : Social History Observation Description Sex Assigned At Male Encounters Encounter Location Date Provider Diagnosis [facility] [address] [place] [address] [phone] 09/25/2024 Zack Geller Plan Of Treatment No Information Progress Notes * Kai SOLORZANOEugeneOB: 7 (59 yo M)Acc No.[id number]:09/25/2024 Progress Notes Patient: Andrew JUAREZ Provider: Richar Geller MD :1965 A ge:58 Y S ex:Male Date:09/25/2024 Address:[address] [place], [place] [phone] Subjective: * Chief Complaints: * 1 . DM f/u. * Medical History: Objective: * Vitals: Therapeutic Interventions: Assessment: Plan: * Treatment: * * The named appointment provid er may or may not be the originator of this progress note, and it is not deemed complete until electronically signed by the appointment provider. Sign off status: Pending * Provider: Richar Geller MD Date: 0 09/25/2024 Generated for Sergey garvey/Jennifer/Jeffreyitting on: 0 05/26/2025 07:26 AM CDT
[2025-05-26] VITALS (82 sets, daily range): BP systolic 91–222; BP diastolic 52–169; PULSE 72–142; RESP 15–28; TEMP 36.8; O2SAT 82–100; BMI 27.3
--- NOTE | 2025-05-26 07:23 | ECG_ITS ---
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 Measurements Intervals [place] Rate: 106 P: 54 PA: 101 QRS: 192 QRSD: 150 T: 17 QT: 386 QTc: 515 Interpretive Statements ELECTRONIC VENTRICULAR PACEMAKER, PVCs ABNORMAL RHYTHM ECG Compared to ECG 03/14/2025 18:13:00 No significant changes Electronically Signed On 05-26-2025 21:37:18 CDT by Hector Day M.D. [email or web address]
--- NOTE | 2025-05-26 07:23 | XR_ITS ---
WS: [id number] PORTABLE CHEST HISTORY: cp COMPARISON: 03/14/2025 Lung volumes are decreased due to poor inspiration. No consolidation. LEFT subclavian pacer/defibrillator. No pleural effusion or pneumothorax. Cardiac size: Normal. Mediastinum/Aorta: Mild atherosclerosis aorta. Plate and screw fixation LEFT clavicle. Postoperative changes are similar to 03/05/2025. XR/XR chest 1V portable [id number] IMPRESSION: No acute cardiopulmonary abnormalities. No pneumonia.
--- NOTE | 2025-05-26 07:25 | ED_ITS ---
HPI - Chest Pain 2 General: Chief Complaint: Chest Pain Stated Complaint: Afib RVR, Time Seen by Provider: 05/26/25 07:21 Source: patient and EMS Mode of arrival: EMS Limitations: no limitations History of Present Illness: 59-year-old male with a extensive cardia c history does have a AICD in place. He states that his AICD is shocked him 6 times throughout the morning. EMS states that it shocked him once with them. Has a history of A-fib he states has been having some chest pain states while the pain is where he has been shocked. Has minimal pain currently denies any shortness of breath denies any fever. Associated symptoms: Deny abdominal pain, dyspnea, fever(s), nausea or vomiting Related Data Home Medications ?Medication ?Instructions ?Recorded ?Confirmed acetaminophen 325 mg tablet 650 mg PO QID PRN Pain 05/26/25 (Tylenol) Previous Rx's ?Medication ?Instructions ?Recorded apixaban 5 mg tablet (Eliquis) 5 mg PO BID #180 tabs 0 01/07/25 Held on 02/20/25. Instructions: Resume on 02/22/25. aspirin 81 mg tablet,delayed 81 mg PO DAILY #90 tabs 0 01/07/25 release Held on 02/20/25. Instructions: Resume on 02/22/25. empagliflozin 10 mg tablet 10 mg PO DAILY #90 tabs (Jardiance) metoprolol succinate 100 mg 50 mg (1/2 x 100 mg) PO BI D #90 01/07/25 tablet,extended release 24 hr tabs potassium chloride 20 mEq 20 meq PO BID #180 tabs 12/23 03/18 tablet,extended release sacubitril 49 mg-valsartan 51 mg 1 tab PO BID #90 tabs 01/07/25 tablet (Entresto) spironolactone 25 mg tablet 12.5 mg (1/2 x 25 mg) PO D AILY #90 01/07/25 tabs thiamine HCl (vitamin B1) 100 mg 100 mg PO DAILY #90 t abs 01/08/25 tablet folic acid 1 mg tablet 1 mg PO DAILY #30 tabs 02/01 multivitamin with folic acid 400 1 tab PO DAILY #30 ta bs 02/01/25 mcg tablet (Thera) isosorbide mononitrate 30 mg 30 mg PO DAILY #30 tabs 0 02/02/25 tablet,extended release 24 hr Allergies Allergy/AdvReac Type Severity Reaction Status Date / Time No Known Allergies Allergy Verified 05/14/25 11:03 Review of Systems 2 Const: Denies: fever(s), chills, body aches or change in appetite ENMT: Denies: throat pain or dental pain Card: Reports: chest pain Resp: Denies: dyspnea GI: Denies: abdominal pain, nausea, vomiting or diarrhea Musc: Denies: neck pain or back pain Skin/Breast: Denies: rash Neuro: Denies: headache(s) PFSH ED 2 PFSH: Medical History Tobacco use disorder Heart failure with mildly reduced ejection fraction (HFmrEF) Elevated blood pressure reading with diagnosis of hypertension Alcoholism with alcohol dependence Diabetes type 2, controlled Neuropathy History of non-ST elevation myocardial infarction (NSTEMI) Peripheral vascular disease Atrial fibrillation Hypertension CHF (congestive heart failure) LVEF 64% 01/30/2025 Surgical History Hx of umbilical hernia repair 07/05/23 lap repair of umbilical hernia with mesh- Dr Obrien History of implantable cardioverter-defibrillator (ICD) placement Family History Mother CAD (coronary artery disease) Social History Smoking and tobacco/nicotine status: current every day tobacco/nicotine user cigarettes [ Other cigarette details: 1.5 pack per day x 40 years, currently down to 3-4 cig/day] Alcohol intake: current Alcohol intake frequency: 3 or more drinks per day Alcohol type: beer Substance/Drug Use: former Date of last use: marijuana in 2021 Household members: children Marital status: Single Number of children: 2 Number of grandchildren: 0 Current occupational status: disabled Special duc needs: No Agree to transfusion: Yes Physical Exam 2 Const: COMMON NORMALS: patient oriented x3 HENMT: COMMON NORMALS: normocephalic and atraumatic HEAD & SCALP: n ormocephalic and atraumatic Eye: COMMON NORMALS: conjunctivae normal CONJUNCTIVA: Yes conjunctivae normal Neck/C-Spine: COMMON NORMALS: full ROM and supple Chest: COMMONS NORMALS: normal inspection of the chest and normal palpation of entire chest wall Resp: COMMON NORMALS: normal respiratory effort, No retractions, No use of accessory muscles and clear to auscultation bilaterally AUSCULTATION: clear to auscultation bilaterally Cardio: COMMON NORMALS: No murmurs present (Cardio) RATE: tachycardic R HYTHM: abnormal rhythm irregularly irregular GI: COMMON NORMALS: Normal to inspection, nondistended, normoactive bowel sounds present, Soft to palpation, non-tender and no masses PALPATION: Yes Soft to palpation Extremity: COMMON NORMALS: normal to inspection and full ROM Neuro: COMMON NORMALS: patient oriented x3, moves all extremities and no focal motor deficits Psych: COMMON NORMALS: mental status grossly normal, Normal thought process present and cooperative THOUGHT PROCESS: Normal thought process present Skin: COMMON NORMALS: no rashes or lesions noted and no wounds GENERAL SKIN EXAM: no rashes or lesions noted Course 2 Vital Signs: Vital signs: Vital Signs Pulse Rate 101 H 05/26/25 08:15 Respiratory Rate 26 H 05/26/25 08:15 Blood Pressure 121/58 05/26/25 08:15 Pulse Oximetry 90 05/26/25 08:15 Oxygen Delivery Me thod Room Air, Nasal C annula 05/26/25 07:21 Oxygen Flow Rate 3 05/26/25 07:21 MDM - Chest Pain Medical Decision Making Patient presents here he is in A-fib with RVR his defibrillator is discharged multiple times this morning. Heart rate here is much improved after amiodarone initial troponin was only 27 no acute signs of ACS. Electrolytes are all normal did speak to hospitalist along with formulation chemist will admit to cardiac stepdown on amiodarone drip. Medical Records I reviewed the patient's medical records. Lab Data I reviewed the patient's lab results. 05/26/25 07:45 05/26/25 07:45 Radiology Impressions Chest X-Ray 05/26/25 07:23 IMPRESSION: No acute cardiopulmonary abnormalities. No pneumonia. Laboratory Results WBC 11.34 10^3/uL (3.29-11.43) 05/26/25 07:45 RBC 5.63 10^6/uL (3.85-5.65) 05/26/25 07:45 Hgb 14.60 g/dL (11.27-16.99) 05/26/25 07:45 Hct 45.5 % (37-53) 05/26/25 07:45 MCV 80.8 fl (82-101) L 05/26/25 07:45 MCH 25.9 pg (27-33) L 05/26/25 07:45 MCHC 32.1 g/dL (30-55) 05/26/25 07:45 RDW 14.9 % (12.1-15.1) 05/26/25 07:45 Plt Count 171 10^3/cmm (157-399) 05/26/25 07:45 MPV 11.1 fL (7.4-10.4) H 05/26/25 07:45 Neut % (Auto) 83.3 % 05/26/25 07:45 Lymph % (Auto) 10.0 % 05/26/25 07:45 [place] % (Auto) 5.7 % 05/26/25 07:45 Eos % (Auto) 0.3 % 05/26/25 07:45 Baso % (Auto) 0.3 % 05/26/25 07:45 Neut # (Auto) 9.45 10^3/uL (1.8-7.7) H 05/26/25 07:45 Lymph # (Auto) 1.1 10^3/uL (0.8-4.8) 05/26/25 07:45 [place] # (Auto) 0.7 10^3/uL (0.2-0.9) 05/26/25 07:45 Eos # (Auto) 0.0 10^3/uL (0.0-0.8) 05/26/25 07:45 Baso # (Auto) 0.0 10^3/uL (0.0-0.1) 05/26/25 07:45 Nucleated RBC % (auto) 0 % 05/26/25 07:45 Nucleated RBCs # 0.0 /100WBC 05/26/25 07:45 Sodium 132 mmol/L (136-145) L 05/26/25 07:45 Potassium 3.6 mmol/L (3.5-5.1) 05/26/25 07:45 Chloride 96 mmol/L (98-107) L 05/26/25 07:45 Carbon Dioxide 18 mmol/L (22-29) L 05/26/25 07:45 Anion Gap 21.6 (5-19) H 05/26/25 07:45 BUN 19 mg/dL (6-20) 05/26/25 07:45 Creatinine 1.3 mg/dL (0.7-1.2) H 05/26/25 07:45 GFR Calculation 56.7 mL/min (90-130) L 05/26/25 07:45 Glucose 281 mg/dL (65-115) H 05/26/25 07:45 Calculated Osmolality 286 mOsm/kg (285-295) 05/26/25 07:45 Calcium 8.7 mg/dL (8.5-10.5) 05/26/25 07:45 Total Bilirubin 1.0 mg/dL (0.15-1.2) 05/26/25 07:45 AST 44 U/L (0-40) H 05/26/25 07:45 ALT 27 U/L (0-41) 05/26/25 07:45 Alkaline Phosphatase 101 U/L (40-130) 05/26/25 07:45 Troponin T Baseline 27 ng/L (0-15) H 05/26/25 07:45 Total Protein 7.5 g/dL (6.6-8.7) 05/26/25 07:45 Albumin 3.5 g/dL (3.5-5.2) 05/26/25 07:45 Globulin 4.0 g/dL (1.3-4.6) 05/26/25 07:45 All radiology interpretation(s) finalized by discharge EKG Data EKG 1: I personally reviewed and interpreted this EKG as follows: EKG interpretation date: 05/26/25 EKG interpretation time: :27 Interpretation: afib rvr hr [address] elevation qrs 263 qtc 476 Critical Care Time 2 Critical Care Time: Critical Care Time: Yes Total Critical Care Time: 40 Attestation: The high probability of a clinically significant, sudden or life threatening deterioration of the patient's cv system(s) required my full and direct attention, intervention and personal management. The critical care time is as shown. This time is in addition to time spent performing any reported procedures but includes the following: [x] Data and vital sign review and interpretation [x] Patient assessment, examination and intervention [x] Documentation [x] Medication orders and management Discharge Plan Discharge Patient Disposition: Admitted As Inpatient Clinical Impression: Atrial fibrillation with RVR, Chest pain, Defibrillator discharge Condition: Stable Coding Level of Care Code ED Medical Imaging Technologist for Cecily Wood
--- OUTSIDE RECORDS SUMMARY | 2025-05-26 07:27 | XMS_ITS | Patient Health Record ---
Author Organization [facility] Address [address], [place] [id number] Care Team Providers Care Employment Service Specialist Name Role Phone Zack Geller Primary Care Provider [phone] Amanda Daugherty Unavailable [phone] Loreto Ahn Unavailable [phone] Allergies No Known Allergies Results Component Value Reference Range Notes HgbA1C [[id number]] Reviewed date:07/23/2024 08:08:50 AM Interpretation:7.7 Performing Lab:[facility], [address] [place] [address], Phone - [phone], Director - Emmie Notes/Report: Hemoglobin A1c 7.7 4.8-5.6 % . Prediabetes: 5.7 - 6.4 Diabetes: >6.4 Glycemic control for adults with diabetes: <7.0 Reason For Referral No Information Medications Medication [...] capsule Orally Once a day Active Pen [place] 30G X 5 MM 1 needle once [...] q uitting Section Notes: Updated 04/07/2021 M DYE MIXER Updated 04/07/2021 M DYE MIXER Updated 04/07/2021 M DYE MIXER Updated 04/07/2021 M DYE MIXER Updated 04/07/2021 M DYE MIXER Updated 04/07/2021 M DYE MIXER Updated 04/07/2021 M DYE MIXER Problems Problem Type SNOMED Code ICD Code Onset Dates Problem Status W/U Status Risk Notes Problem 793724014 correction (current) use of insulin (Z79.4) Active confirmed Problem 12256089 Alcohol abuse (F10.10) Active confirmed Problem 579785388 Tobacco abuse (Z72.0) Active confirmed Problem 61790750 Essential hypertension (I10) Active confirmed Problem 58096140 Type 2 diabetes mellitus with other specified complication (E11.69) Active confirmed Problem 13850134838572283 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) Active confirmed Problem 277555948 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 (I83.019) Active confirmed Problem 78589048249297871 Varicose veins of left 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) Active confirmed Problem 767299239 Varicose veins of left lower extremity with ulcer of unspecified site (I83.029) Active confirmed Problem 12831688388185210 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) Active confirmed Problem 44365952739039169 Non-pressure chronic ulcer of left calf with unspecified severity (L97.229) Active confirmed Problem 88873257 Non-pressure chronic ulcer of unspecified part of right lower leg with unspecified severity (L97.919) Active confirmed Problem 77849955 Non-pressure chronic ulcer of unspecified part of left lower leg with unspecified severity (L97.929) Active confirmed Problem 22529949 Chronic obstructive pulmonary disease, unspecified COPD type (J44.9) Active confirmed Problem 399982829573204 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) Active confirmed Problem 322837115 Deep vein thrombosis (DVT) of lower extremity, unspecified chronicity, unspecified laterality, unspecified vein (I82.409) Active confirmed Vital Signs Temperature 97.8 degrees Fahrenheit 08/19/2024 Blood pressure diastolic 77 mm Hg 08/19/2024 Oximetry 97 08/19/2024 Height 65 in 08/19/2024 Blood pressure systolic 124 mm Hg 08/19/2024 Weight 181.0 lbs 08/19/2024 BMI 30.12 kg/m2 08/19/2024 Encounters Encounter Location Date Provider Diagnosis [facility] [address] [place] [address] [id number] 06/30/2024 Amanda Daugherty Chronic combined systolic and diastolic heart failure I50.42 and Type 2 diabetes mellitus with other specified complication E11.69 [facility] [address] [place] [address] [id number] 07/02/2024 Zack Geller Chronic combined systolic and diastolic heart failure I50.42 [facility] [address] [place] [address] [id number] 07/22/2024 Loreto Ahn Type 2 diabetes mellitus [...] calf with unspecified severity L97.229 [facility] [address] [place] [address] [id number] 08/19/2024 Loreto Ahn Open wounds involvin g multiple regions of lower extremity with complication S81.809A [facility] [address] [place] [address] [id number] 06/13/2024 Zackmaylin Geller [facility] [address] [place] [address] [id number] 07/01/2024 Zack Geller Type 2 diabetes mellitus with other specified complication E11.69 [facility] [address] [place] [address] [id number] 07/02/2024 Zack Geller [facility] [address] [place] [address] [id number] 07/08/2024 Zackmaylin Geller [facility] [address] [place] [address] [id number] 07/23/2024 Zack Geller Assessments Encounter Date Diagnosis (ICD Code) Assessment Notes Treatment Notes Treatment Clinical Notes Section Notes 07/02/2024 Chronic combined systolic and diastolic heart failure (ICD-10 - I50.42) 07/22/2024 Cellulitis of right lower extremity (ICD-10 - L03.115) resolving 07/01/2024 Type 2 diabetes mellitus with other specified complication (ICD-10 - E11.69) 06/30/2024 Type 2 diabetes mellitus with other specified complication (ICD-10 - E11.69) 06/30/2024 Chronic combined systolic and diastolic heart failure (ICD-10 - I50.42) 08/19/2024 Open wounds involving multiple regions of lower extremity with complication (ICD-10 - S81.809A) Continue Antibiotics Follow with Wound Care As scheduled Keep appointments with Infectious Disease 07/22/2024 Type 2 diabetes mellitus with other specified complication (ICD-10 - E11.69) 07/22/2024 Varicose veins of right lower extremity with ulcer of calf (ICD-10 - I83.012) continue wound care 07/22/2024 Non-pressure chronic ulcer of right calf with fat layer exposed (ICD-10 - L97.212) continue wound care 07/22/2024 Varicose veins of left lower extremity with ulcer of calf (ICD-10 - I83.022) continue wound care 07/22/2024 Non-pressure chronic ulcer of left calf with unspecified severity (ICD-10 - L97.229) continue wound care Plan Of Treatment No Information Insurance Providers Payer Name Payer Address Payer Phone Subscriber Number Group Number Insured Name Patient Relationship to Insured Coverage Start Date Coverage End Date [employer] [facility] [address] [place], [place] [id number] [phone] [id number] Andrew Ruggiero Self - patient is the insured 1 Medical (General) History Medical History History ICD Code Chronic LE wounds Hypertension Combined systolic and diastolic heart fa ilure Diabetes mellitus Hospitalization History Reason Date(Month/Year) [facility]-chest pain and dizziness 03/26/24 heart failure 07/13/2020 [facility] right foot 08/28/2013
[2025-05-26 07:51] LABS: Hematocrit 45.5 % (37-53); Hemoglobin 14.60 g/dL (11.27-16.99); Mean Corpuscular HGB Conc 32.1 g/dL (30-55); Mean Corpuscular Hemoglobin 25.9 pg (27-33); Mean Corpuscular Volume 80.8 fl (82-101); Nucleated Red Blood Cells % 0 %; Platelet Count 171 10^3/cmm (157-399); Red Blood Count 5.63 10^6/uL (3.85-5.65); White Blood Count 11.34 10^3/uL (3.29-11.43)
[2025-05-26] MEDS: amiodarone 150 MG/100 ML PREMIX 400 MG IV (07:51)
--- NOTE | 2025-05-26 08:02 | PC.PHAR ---
Pt verified he takes most of these medications. Pt states he ran out of Folic acid 1mg and Isosorbide mononitrate 30mg and did not refill-he thought they were just a one time thing. Eliquis 5mg, Entresto 49-51, Potassium chl 20meq, Mutivitamin and B1 should all be out by not but pt states he still takes them.
[2025-05-26 08:07] LABS: Alanine Aminotransferase 27 U/L (0-41); Albumin Level 3.5 g/dL (3.5-5.2); Alkaline Phosphatase 101 U/L (40-130); Anion Gap 21.6 (5-19); Aspartate Amino Transferase 44 U/L (0-40); Blood Urea Nitrogen 19 mg/dL (6-20); Calcium 8.7 mg/dL (8.5-10.5); Carbon Dioxide 18 mmol/L (22-29); Chloride 96 mmol/L (98-107); Creatinine Clr Calc Pharmacy 62.5614; Globulin 4.0 g/dL (1.3-4.6); Glucose 281 mg/dL (65-115); Osmolality Calculated 286 mOsm/kg (285-295); Potassium 3.6 mmol/L (3.5-5.1); Sodium 132 mmol/L (136-145); Total Protein 7.5 g/dL (6.6-8.7)
[2025-05-26 08:09] LABS: Troponin(5th) Baseline 27 ng/L (0-15)
[2025-05-26 08:24] LABS: NT Pro B Type Natriuretic Pept 327 pg/mL (0-125)
[2025-05-26 08:29] LABS: INR 1.09 (0.8-1.2); Prothrombin Time 14.90 SECONDS (12.1-14.9)
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
--- NOTE | 2025-05-26 09:31 | PC.NURSE ---
PATIENT HAS MULTIPLE WOUNDS TO BILATERAL LOWER LEGS. PATIENT STATES HE WAS SUPPOSED TO HAVE A WOUND CARE VISIT.
--- NOTE | 2025-05-26 09:47 | P.HP_ITS ---
Providers/Chief Complaint 2 Primary Care Provider: Oliver Dempsey MD Chief Complaint: Afib RVR, History of Present Illness Andrew Ruggiero is a 59 year old gentleman with a history of congestive heart failure, type 2 diabetes mellitus, atrial fibrillation, hypertension, peripheral vascular disease, diabetic neuropathy, alcohol use disorder, coronary artery disease, and prior AICD (automated implantable cardioverter-defibrillator) implantation who presented to the emergency department after approximately six AICD shocks this morning. Reports chest pain associated with the shocks. Endorses intermittent dizziness. Denies fever, sore throat, cough, hemoptysis, nausea, vomiting, diarrhea, melena, hematochezia, hematuria, or dysuria. Eating adequately. Longstanding lower extremity wounds for 13?14 years; multiple ulcers previously, with two healed and one persistent; notes increased redness and swelling since Sunday. Currently smokes; alcohol intake reduced to about 2?3 beers per week (previously heavier). Lives with niece. Identified aunt (Gwen Betts) as preferred surrogate if needed; no formal power of health care attorney. Agrees to full resuscitation if required (CPR/intubation). Review of Systems 2 Const: Denies: fever(s), chills, body aches or malaise ENMT: Denies: throat pain Card: Reports: other (ICD shocks - chest tingling afterward); Denies: chest pain, edema, pre-syncope or dyspnea on exertion Resp: Denies: dyspnea, productive cough, change in phlegm color or hemoptysis GI: Denies: abdominal pain, nausea, vomiting, diarrhea, constipation, hematochezia or melena : Denies: flank pain, difficulty urinating, urinary frequency or hematuria Musc: Reports: extremity swelling and other (L foot tingling swelling); Denies: back pain, joint swelling or joint redness Skin/Breast: Denies: rash or new lesions Neuro: Denies: headache(s) or confusion Medications/Allergies Home Medications ?Medication ?Instructions ?Recorded ?Confirmed ?Last Taken ?Type acetaminophen 325 mg tablet 650 mg PO QID PRN Pain 05/26/25 02/24/25 History (Tylenol) apixaban 5 mg tablet (Eliquis) 5 mg PO BID #180 tabs 0 01/07/25 05/26/25 05/25/25 Rx Held on 02/20/25. Instructions: Resume on 02/22/25. aspirin 81 mg tablet,delayed 81 mg PO DAILY #90 tabs 0 01/07/25 05/26/25 05/25/25 Rx release Held on 02/20/25. Instructions: Resume on 02/22/25. empagliflozin 10 mg tablet 10 mg PO DAILY #90 tabs 05/26/25 05/25/25 Rx (Jardiance) metoprolol succinate 100 mg 50 mg (1/2 x 100 mg) PO BI D #90 01/07/25 05/26/25 05/25/25 Rx tablet,extended release 24 hr tabs potassium chloride 20 mEq 20 meq PO BID #180 tabs 12/2305/26/25 05/25/25 Rx tablet,extended release sacubitril 49 mg-valsartan 51 mg 1 tab PO BID #90 tabs 01/07/25 05/26/25 02/24/25 Rx tablet (Entresto) spironolactone 25 mg tablet 12.5 mg (1/2 x 25 mg) PO D AILY #90 01/07/25 05/26/25 05/25/25 Rx tabs thiamine HCl (vitamin B1) 100 mg 100 mg PO DAILY #90 t abs 01/08/25 05/26/25 05/25/25 Rx tablet folic acid 1 mg tablet 1 mg PO DAILY #30 tabs 02/0105/26/25 02/24/25 Rx multivitamin with folic acid 400 1 tab PO DAILY #30 ta bs 02/01/25 05/26/25 05/25/25 Rx mcg tablet (Thera) isosorbide mononitrate 30 mg 30 mg PO DAILY #30 tabs 0 02/02/25 05/26/25 02/24/25 Rx tablet,extended release 24 hr Allergies Allergy/AdvReac Type Severity Reaction Status Date / Time No Known Allergies Allergy Verified 05/14/25 11:03 PFSH Acute 2 PFSH: Medical History Tobacco use disorder Heart failure with mildly reduced ejection fraction (HFmrEF) Elevated blood pressure reading with diagnosis of hypertension Alcoholism with alcohol dependence Diabetes type 2, controlled Neuropathy History of non-ST elevation myocardial infarction (NSTEMI) Peripheral vascular disease Atrial fibrillation Hypertension CHF (congestive heart failure) LVEF 64% 01/30/2025 Surgical History Hx of umbilical hernia repair 07/05/23 lap repair of umbilical hernia with mesh- Dr Obrien History of implantable cardioverter-defibrillator (ICD) placement Family History Mother CAD (coronary artery disease) Social History Smoking and tobacco/nicotine status: current every day tobacco/nicotine user cigarettes [ Other cigarette details: 1.5 pack per day x 40 years, currently down to 3-4 cig/day] Alcohol intake: current Alcohol intake frequency: 3 or more drinks per day Alcohol type: beer Substance/Drug Use: former Date of last use: marijuana in 2021 Household members: children Marital status: Single Number of children: 2 Number of grandchildren: 0 Current occupational status: disabled Special duc needs: No Agree to transfusion: Yes Vitals/I&O/Wt Last Vital Signs Pulse 102 H 05/26/25 09:30 Resp 19 H 05/26/25 09:30 BP 108/86 05/26/25 09:30 Pulse Ox 91 05/26/25 09:30 O2 Del Method Room Air, Nasal Cannula 05/26/25 07:21 O2 Flow Rate 3 05/26/25 07:21 05/25/25 05/26/25 05/26/25 22:59 06:59 14:59 Intake Total 600 / 600 Balance 600 / 600 Weight last 48 hrs Weight 79.379 kg Physical Exam 2 Const: COMMON NORMALS: patient oriented x3 and alert GENERAL APPEARANCE: c ooperative ORIENTATION/CONSCIOUSNESS: Yes awake HENMT: COMMON NORMALS: oropharynx normal Neck/C-Spine: COMMON NORMALS: no JVD Resp: COMMON NORMALS: normal respiratory effort and clear to auscultation bilaterally AUSCULTATION: clear to auscultation bilaterally Cardio: COMMON NORMALS: no JVD, regular rhythm, S1 normal heart sound present, S2 normal heart sound present and No murmurs present (Cardio) RHYTHM: regular rhythm HEART SOUNDS: S1 normal heart sound present and S2 normal heart sound present GI: COMMON NORMALS: Normal to inspection, nondistended, normoactive bowel sounds present, Soft to palpation and non-tender PALPATION: Yes Soft to palpation Extremity: COMMON NORMALS: no joint enlargement and no pedal edema N ARRATIVE EXTREMITY EXAM: Left foot and ankle swollen; left distal foot warm and red; edema present Neuro: COMMON NORMALS: patient oriented x3 and moves all extremities S ENSORIUM/ORIENTATION: Yes alert Skin: COMMON NORMALS: no rashes or lesions noted GENERAL SKIN EXAM: no rashes or lesions noted OTHER: Redness over left lower leg; shallow ulcer on lateral left lower leg; shallow mostly healed ulcer on medial left lower extremity with dry skin; large ulcer on medial right lower leg; surrounding erythema around old ulcers on the left lower leg; suspected cellulitis of left lower extremity Data 05/26/25 07:45 05/26/25 07:45 A&P Assessment and plan 1. Defibrillator discharge: Recurrent AICD discharges with chest pain : Presented after ~6 AICD shocks subjectively this morning with associated chest pain. ICD interrogation shows sinus tachycardia pacing due to VT episodes. Telemetry monitoring planned; concern that fast heart rates/arrhythmias triggered shocks. Currently without signs of sepsis. Baseline troponin 0.27. Chest X-ray without acute cardiopulmonary abnormalities. Reviewed vitals, CBC, INR, CMP, requested magnesium, reviewed troponin, EKG, chest x-ray, ED provider note, discussed with ED provider. Discussed with junior project manager. - Continue amiodarone drip - Monitor telemetry for recurrent arrhythmia 2. Ventricular tachycardia: Episodes of fast heart rates including runs of ventricular tachycardia on ICD interrogation among AFib; suspected contributor to lightheadedness and AICD shocks. - Continue amiodarone drip - Monitor telemetry for recurrent arrhythmia - Complete troponin EKG series - Limited echocardiogram - Per discussion with junior project manager, Tabatha at this time, transition to anticoagulation with Lovenox with further consideration of additional evaluation with coronary angiogram for possible cardiac ischemia Possible cardiac ischemia : Concern for ischemia contributing to arrhythmia/shocks given risk factors and prior abnormal stress test with small area of ischemia; cardiology considering further evaluation. - Complete coronary EKGs - Continue aspirin, anticoagulation with Lovenox. Beta-kim if blood pressure allows. - Assess for possible ischemia - Cardiology may plan for coronary angiography 3. Heart failure with mildly reduced ejection fraction (HFmrEF): Received a fluid challenge with small bolus 500 cc of normal saline. Monitor for risk of acute CHF. Also of lower extremity edema although this may be related to chronic venous stasis as well as cellulitis on the left side. Known CHF; NT-proBNP 327. No acute cardiopulmonary findings on chest X-ray mentioned. 4. Cardiac resynchronization therapy defibrillator (AUTOMATIC FURNACE OPERATOR-D) in place: Status post interrogation. Received antitachycardia pacing due to runs of VT. 5. Abnormal nuclear cardiac imaging test: In January 2025, reviewed stress test with noted small to medium sized area of prior infarct with minimal harini-infarct ischemia in the left circumflex territory. 6. Cellulitis: Left lower extremity cellulitis with erythema of left sandoval with old ulcers medially and laterally likely source of entry and erythema of distal left foot with bilateral erythema at the sides extending proximally. Left lower extremity cellulitis suspected since Sunday on background of chronic venous-type ulcers (shallow ulcers left leg; large ulcer medial right lower leg) with surrounding erythema; currently no fever, normal WBC; no signs of sepsis reported. - Initiate antibiotic coverage with cefepime - Add linezolid; monitor blood counts due to risk of cytopenia - Monitor risk of Clostridioides difficile with antibiotics - Reassess renal function during therapy 7. Venous stasis ulcer of right lower extremity: Chronic, with chronic wound on anteromedial right lower extremity. Follows with wound care. 8. Venous stasis ulcer of left lower extremity: Chronic 9. Tobacco use disorder: Active smoking; counseling provided. - Encourage smoking cessation - Provide nicotine replacement patches and lozenges as needed 10. Atrial fibrillation with RVR: Atrial fibrillation with rapid ventricular response : Atrial fibrillation with aberrant conduction noted on arrival with heart rate in 140?150s; rate improved to ~101 bpm after amiodarone. Anticoagulation adjustments discussed. - Hold apixaban (Eliquis) for now - Switch to therapeutic enoxaparin (Lovenox) - Check magnesium - Pending further cardiology assessment; obtain limited echocardiogram Plan: Mild acute kidney injury : Creatinine 1.3 with noted mild NORMA; received small fluid bolus (500 mL normal saline). Plan to monitor. - Reassess renal function - Documented small fluid challenge given in ED Alcohol use disorder : Reports reduction in intake to ~2?3 beers/week from prior heavier daily use. Hypertension, labile : Severely elevated BP on arrival (up to 222/169 mmHg); treated with labetalol with subsequent low BP readings reported. Diabetes mellitus type 2 : Known DM2; home medications include empagliflozin. Monitor POC glucose. Insulin sliding scale. Consistent carb diet. Coronary artery disease : Known CAD; evaluation for possible progression discussed. Continue aspirin, beta-kim if blood pressure allows. Would benefit from statin. Previously on Lipitor. Peripheral vascular disease : Known PVD with chronic lower extremity ulcers. Continue aspirin. Previously on Lipitor. Diabetic neuropathy : Reports decreased sensation at bottom of foot; known diabetic neuropathy. Anticoagulation management for atrial fibrillation : On chronic apixaban for AFib; adjustments planned due to current evaluation. - Hold apixaban (Eliquis) for now - Switch to therapeutic enoxaparin (Lovenox) Hospitalization bundle : Inpatient care elements documented. - Admit for cardiac arrhythmia management and treatment of lower extremity infection - Full code status confirmed - Identify surrogate decision-maker: aunt (Gwen Phipps) - Monitor CBC (due to antibiotic-related cytopenia risk) PDMP PDMP Reviewed: Not Reviewed Attestations 2 Medical Necessity Statement*: Admission of over 2 midnights anticipated for assessment management of multiple runs of ventricular tachycardia with NG to cardiac pacing, A-fib with RVR, NORMA, cellulitis and gentleman with underlying CHF, diabetes and additional comorbidities as above. and High MDM includes amount and/or complexity of data reviewed/ordered [ previous or external records, resulted lab(s)/test(s), ordered lab(s)/test(s) and other healthcare professional discussion] and described risk of complication, morbidity or mortality of management as documented Diagnoses Defibrillator discharge Z45.02 Ventricular tachycardia I47.20 Heart failure with mildly reduced ejection fraction (HFmrEF) I50.20 Cardiac resynchronization therapy defibrillator (AUTOMATIC FURNACE OPERATOR-D) in place Z95.810 Abnormal nuclear cardiac imaging test R93.1 Cellulitis L03.90 Venous stasis ulcer of right lower extremity I83.019; L97.919 Venous stasis ulcer of left lower extremity I83.029; L97.929 Tobacco use disorder F17.200 Atrial fibrillation with RVR I48.91
--- NOTE | 2025-05-26 10:01 | PC.NURSE ---
LEBRON PACE MAKER INTERROGATED, REPORT PLACED IN CHART.
[2025-05-26 10:26] LABS: Troponin 5 2HR 39.73 ng/L (0-15)
--- NOTE | 2025-05-26 10:28 | USCV_ITS ---
Andrew Ruggiero Age: 59 Gender: M : 1965 Exam Date: 05/26/2025 14:48 Ordering Phys: Vin Kelsey MD Technologist: ODELL Exam Location: [facility] [place] Indication: LE Pain HISTORY: Lower extremity pain. PROCEDURES: Venous duplex imaging was performed in only the left lower extremity. The following venous structures were evaluated: common femoral vein, profunda vein, proximal portion of the greater saphenous vein, superficial femoral vein, and the popliteal vein. In addition, the posterior tibial and peroneal trunk were evaluated. Serial compression, augmentation maneuvers, and spectral Doppler flow evaluation were performed. FINDINGS: Nonocclusive acute thrombus seen from proximal SFA to the popliteal vein. Saphenofemoral junction is normal. CONCLUSIONS Acute DVT left SFA through popliteal vein. Dr. Viola Saenz DO (Electronically Signed) Final Date: 26 May 2025 16:05 Amended: 29 May 2025 08:43 C
--- NOTE | 2025-05-26 10:31 | USCV_ITS ---
Andrew Ruggiero Age: 59 Gender: M : 1965 Exam Date: 05/26/2025 14:33 Ordering Phys: Vin Kelsey MD Technologist: ODELL Exam Location: [facility] – [place] Indication: VT, AICD BP: 104 / 80 HR: Rhythm: Sinus Technical Quality: Adequate MEASUREMENTS (Male / Female) Normal Values 2D ECHO LV Diastolic Diameter PLAX 5.4 cm 4.2 - 5.9 / 3.9 - 5.3 cm IVS Diastolic Thickness 1.1 cm 0.6 - 1.0 / 0.6 - 0.9 cm IVS Systolic Thickness 1.7 cm LVPW Diastolic Thickness 1.2 cm 0.6 - 1.0 / 0.6 - 0.9 cm LVPW Systolic Thickness 1.5 cm LVOT Diameter 2.0 cm LV Ejection Fraction 2D Teich 52.0 % LV Ejection Fraction MOD 4C 56.0 % LV Ejection Fraction MOD 2C 41.1 % LV Ejection Fraction 2C AL 44.6 % LA Diameter 4.1 cm RA Systolic Volume 4C AL 33.5 ml RA Systolic Volume 4C MOD 33.3 ml Aorta at Sinotubular Diameter 2.2 cm M-MODE LA Ao Ratio MM 1.2 AV Cusp Separation MM 1.8 cm FINDINGS Left Ventricle Mild to moderate concentric ventricular hypertrophy. Relative hypokinesia of the inferior wall. Ejection fraction around 52%. Right Ventricle Pacemaker/defibrillator wire on the right ventricle Right Atrium Pacemaker/defibrillator wire. Left Atrium Left atrium appears to be mildly dilated Mitral Valve No gross abnormalities noted Aortic Valve Thickened aortic valve. Tricuspid Valve The leaflets could not be visualized well Pulmonic Valve Pulmonic valve not well visualized. Pericardium No pericardial effusion. Aorta Normal aortic annulus size. IVC Inferior vena cava not visualized. CONCLUSIONS Normal LV size with a borderline low ejection fraction of 52%. Relative hypokinesia of the inferior wall. Mild to moderate concentric left-ventricular hypertrophy. Thickened aortic valve. Pacemaker/defibrillator wire in the right atrium and right ventricle There is no pericardial effusion. Comparison with the previous study is difficult because of the difference in the technical quality. Dr Hector Day MD [facility] (Electronically Signed) Final Date: 26 May 2025 18:08 S
[2025-05-26 10:40] LABS: Troponin 5 2HR Delta 12.73 ABS# (0-10)
--- NOTE | 2025-05-26 10:44 | ECG_ITS ---
[email or web address] Test Date: 2025-05-26 Pat Name: Andrew Ruggiero Department: Room: Gender: Male District [address] Reporter: : 1965 Requested By: Sridhar Downing Order Number: [id number] Wilner MD: Hector Day M.D. Measurements Intervals [place] Rate: 92 P: 245 NC: 126 QRS: 79 QRSD: 130 T: 251 QT: 355 QTc: 439 Interpretive Statements ELECTRONIC VENTRICULAR PACEMAKER with PVCs ABNORMAL RHYTHM ECG Compared to ECG 05/26/2025 08:22:13 No significant changes Electronically Signed On 05-26-2025 21:52:20 CDT by Hector Day M.D. [email or web address]
[2025-05-26] MEDS: linezolid premix 600 MG/300 ML PREMIX 300 MG IV ×2 (10:50→23:04)
[2025-05-26] MEDS: cefepime 1,000 mg SDV 1000 MG IVP ×2 (10:50→23:03)
--- NOTE | 2025-05-26 14:21 | ECG_ITS ---
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 Measurements Intervals [place] Rate: 77 P: 243 MI: 134 QRS: 81 QRSD: 138 T: 244 QT: 402 QTc: 457 Interpretive Statements ELECTRONIC VENTRICULAR PACEMAKER ABNORMAL RHYTHM ECG Compared to ECG 05/26/2025 10:44:16 No significant changes Electronically Signed On 05-26-2025 21:49:14 CDT by Hector Day M.D. [email or web address]
[2025-05-26 14:23] LABS: Troponin 5 6HR 47.51 ng/L (0-15)
[2025-05-26 14:28] LABS: Troponin 5 6HR Delta 20.51 ng/L (0-12)
[2025-05-26 15:11] LABS: Thyroid Stimulating Hormone 3.19 uIU/mL (0.27-4.20)
--- NOTE | 2025-05-26 16:51 | PC.NURSE ---
Patient received to floor from ED via stretcher. Patient transferred to bed x4 assist. Observed chronic wounds to bilateral lower legs. Patient stated, I have had those wounds for 13years. Both legs in various stages of healing. Right foot cold to touch with purple color. Left foot swollen but warm to touch.
[2025-05-27] VITALS (8 sets, daily range): BP systolic 105–129; BP diastolic 63–71; PULSE 62–91; RESP 16–19; TEMP 36.5–37.2; O2SAT 92–96
[2025-05-27] MEDS: AMIODARONE HCL/D5W 900 MG/500 ML BAG 16.67 MG (00:55)
--- NOTE | 2025-05-27 02:06 | PC.NURSE ---
Our pyxis was out of Amiodarone drips so I contacted [employer] and she said she would grab some, we then found out that the whole hospital is out of the 360mg in 200ml, which is 1.8 mg/ml concentration, so she brought the 900mg in 500ml, which is also a concentration of 1.8mg/ml
[2025-05-27 04:54] LABS: Hematocrit 43.9 % (37-53); Hemoglobin 14.10 g/dL (11.27-16.99); Mean Corpuscular HGB Conc 32.1 g/dL (30-55); Mean Corpuscular Hemoglobin 25.9 pg (27-33); Mean Corpuscular Volume 80.6 fl (82-101); Nucleated Red Blood Cells % 0 %; Platelet Count 174 10^3/cmm (157-399); Red Blood Count 5.45 10^6/uL (3.85-5.65); White Blood Count 9.56 10^3/uL (3.29-11.43)
[2025-05-27 05:28] LABS: Alanine Aminotransferase 31 U/L (0-41); Albumin Level 2.9 g/dL (3.5-5.2); Alkaline Phosphatase 94 U/L (40-130); Anion Gap 18.2 (5-19); Aspartate Amino Transferase 62 U/L (0-40); Blood Urea Nitrogen 13 mg/dL (6-20); Calcium 8.8 mg/dL (8.5-10.5); Carbon Dioxide 20 mmol/L (22-29); Chloride 100 mmol/L (98-107); Creatinine Clr Calc Pharmacy 101.6623; Globulin 4.7 g/dL (1.3-4.6); Glucose 175 mg/dL (65-115); Osmolality Calculated 284 mOsm/kg (285-295); Potassium 3.2 mmol/L (3.5-5.1); Sodium 135 mmol/L (136-145); Total Protein 7.6 g/dL (6.6-8.7)
[2025-05-27] MEDS: multivitamin therapeutic Tablet 1 TAB PO (08:38)
[2025-05-27] MEDS: linezolid premix 600 MG/300 ML PREMIX 300 MG IV ×2 (09:05→21:18)
[2025-05-27] MEDS: cefepime 1,000 mg SDV 1000 MG IVP ×2 (09:09→21:18)
--- NOTE | 2025-05-27 09:43 | PC.CHAP ---
Pastoral Care Encounter/Spiritual Assessment Type of Contact [] Declined ordnance truck installation supervisor visit [] Patient/Family/Request visit [] Outpatient visit [] Follow-up visit [] Physician referral [] Code/Alert [x] Routine visit [] Staff referral [] Actively dying [] Patient sleeping [] Family support [] [] Out of room [] Palliative care [] [] Receiving care in room [] Pre-surgical visit [] Trauma [] Long length of stay [] ICU visit [] Other: Relational/Emotional Strength [x] Patient feels connected with others/family/visitors/staff [] Distress [] Loneliness/isolation [] Abandonment Spirituality of Patient [x] Person of Aspen [] Attends Quaker of their Aspen [x] Believes in Prayer [] Reads Bible or Episcopal materials [] There are Spiritual issues to be addressed Exhibit Artist Interventions [x] Prayer [x] Active listening [] Non-anxious presence [x] Spiritual/emotional support [] Crisis/trauma care [] Spiritual counseling [] Bereavement support [] Provided bereavement packet [] Provided Bible/devotional materials [] Provided toy/stuffed animal, coloring book to patient or family member [] Provided Communion [] Anointing/[place] [] Salvation [x] Completed spiritual assessment [] Other: Impact on Illness or Injury [] Angry [] Fearful [] Anxious [] Often cries [] Exhaustion [] Unable to work [] Unable to attend nondenominational [] Unable to walk/stand [] Unable to read [] Unable to drive [] Unable to eat/drink [] Unable to sleep [] Unable to be with family [] Patient intubated [] Other: Summary Time spent with patient 5 min
--- NOTE | 2025-05-27 16:46 | P.PN_ITS ---
Subjective 2 Subjective: His left foot is doing slightly better. Swelling is slightly better. Vitals/I&O/Wt Last Vital Signs Temp 98.0 F 05/27/25 15:46 Pulse 63 05/27/25 15:46 Resp 17 05/27/25 15:46 BP 108/68 05/27/25 15:46 Pulse Ox 96 05/27/25 15:46 O2 Del Method Room Air 05/27/25 04:00 O2 Flow Rate 3 05/26/25 07:21 05/27/25 05/27/25 05/27/25 06:59 14:59 22:59 Intake Total 500 / 1840 660 / 660 Output Total 500 / 850 Balance 0 / 990 660 / 660 Weight last 48 hrs Weight 78.154 kg Weight 79.379 kg Physical Exam 2 Const: COMMON NORMALS: patient oriented x3 and alert GENERAL APPEARANCE: c ooperative ORIENTATION/CONSCIOUSNESS: Yes awake HENMT: COMMON NORMALS: oropharynx normal Neck/C-Spine: COMMON NORMALS: no JVD Resp: COMMON NORMALS: normal respiratory effort and clear to auscultation bilaterally AUSCULTATION: clear to auscultation bilaterally Cardio: COMMON NORMALS: no JVD, regular rhythm, S1 normal heart sound present, S2 normal heart sound present and No murmurs present (Cardio) RHYTHM: regular rhythm HEART SOUNDS: S1 normal heart sound present and S2 normal heart sound present GI: COMMON NORMALS: Normal to inspection, nondistended, normoactive bowel sounds present, Soft to palpation and non-tender PALPATION: Yes Soft to palpation Extremity: COMMON NORMALS: no joint enlargement and no pedal edema N ARRATIVE EXTREMITY EXAM: Left foot and ankle swollen; left distal foot warm and red, mildly less erythematous; edema present with mild improvement blisters over distal L hallux and 2nd toe. Skin thickening more proximally and dry scales proximal foot and ankle. Neuro: COMMON NORMALS: patient oriented x3 and moves all extremities S ENSORIUM/ORIENTATION: Yes alert Skin: COMMON NORMALS: no rashes or lesions noted GENERAL SKIN EXAM: no rashes or lesions noted OTHER: Redness over left lower leg with mild improvement; No cyanosis or mottling. Shallow ulcer on lateral left lower leg; shallow mostly healed ulcer on medial left lower extremity with dry skin; large ulcer on medial right lower leg; surrounding erythema around old ulcers on the left lower leg; suspected cellulitis of left lower extremity Data 05/27/25 04:01 05/27/25 04:01 Micro: Microbiology 05/26/25 16:24 Gram Stain - Final Leg - Left Wound Culture - Preliminary Coag positive Staphylococcus A&P Assessment and plan 1. Defibrillator discharge: Reviewed vitals, chemistry, cardiology note. Reviewed troponin series. Plans for coronary angiogram tomorrow. Reviewed chemistry. Received replacement potassium. Check magnesium. Recurrent AICD discharges with chest pain : Presented after ~6 AICD shocks subjectively this morning with associated chest pain. ICD interrogation shows sinus tachycardia pacing due to VT episodes. Telemetry monitoring planned; concern that fast heart rates/arrhythmias triggered shocks. Currently without signs of sepsis. Baseline troponin 0.27. Chest X-ray without acute cardiopulmonary abnormalities. Reviewed vitals, CBC, INR, CMP, requested magnesium, reviewed troponin, EKG, chest x-ray, ED provider note, discussed with ED provider. Discussed with high school special education teacher. - Switch to p.o. Amio - Received replacement for hypokalemia. Recheck chemistry. - Monitor telemetry for recurrent arrhythmia 2. Ventricular tachycardia: Episodes of fast heart rates including runs of ventricular tachycardia on ICD interrogation among AFib; suspected contributor to lightheadedness and AICD ATP. - Switch to p.o. Amio - Monitor telemetry for recurrent arrhythmia - Complete troponin EKG series - Limited echocardiogram obtained, reviewed, normal EF, relative hypokinesia of the inferior wall. Mild to moderate concentric LVH. - Per discussion with high school special education teacher, hold-Eliquis at this time, transition to anticoagulation with Lovenox with further consideration of additional evaluation with coronary angiogram for possible cardiac ischemia Possible cardiac ischemia : Concern for ischemia contributing to arrhythmia/shocks given risk factors and prior abnormal stress test with small area of ischemia; cardiology considering further evaluation. - Complete coronary EKGs - Continue aspirin, anticoagulation with Lovenox. Monitor for risk of bleeding. Repeat blood counts. Beta-kim if blood pressure allows. - Assess for possible ischemia - Cardiology may plan for coronary angiography 3. Cellulitis: Mild improvement in erythema and edema of left lower extremity. Reviewed CBC. Some improvement in cellulitis. Reviewed duplex ultrasound, noted DVT, discussed with him. On current time without signs of phlegmasia. Continue anticoagulation. Continue to treat cellulitis. Discussed with him additional assessment for any deep purulence in the foot, MRI considered, however, will not be able to MRI due to presence of pacemaker. Requesting CT of the foot. Reviewed wound culture, noted coag positive staph on preliminary, follow-up. Left lower extremity cellulitis with erythema of left sandoval with old ulcers medially and laterally likely source of entry and erythema of distal left foot with bilateral erythema at the sides extending proximally. Left lower extremity cellulitis suspected since Sunday on background of chronic venous-type ulcers (shallow ulcers left leg; large ulcer medial right lower leg) with surrounding erythema; currently no fever, normal WBC; no signs of sepsis reported. - cont antibiotic coverage with cefepime - cont linezolid; monitor blood counts due to risk of cytopenia - Monitor risk of Clostridioides difficile with antibiotics - Reassess renal function during therapy 4. Heart failure with mildly reduced ejection fraction (HFmrEF): Reviewed vitals, intake and output. Noted mild decrease in edema of lower extremity. Monitor for risk of acute CHF. Also of lower extremity edema although this may be related to chronic venous stasis as well as cellulitis on the left side. Known CHF; NT-proBNP 327. No acute cardiopulmonary findings on chest X-ray mentioned. 5. Cardiac resynchronization therapy defibrillator (STOCKING INSPECTOR-D) in place: Status post interrogation. Received antitachycardia pacing due to runs of VT. 6. Abnormal nuclear cardiac imaging test: In January 2025, reviewed stress test with noted small to medium sized area of prior infarct with minimal harini-infarct ischemia in the left circumflex territory. 7. Venous stasis ulcer of right lower extremity: Chronic, with chronic wound on anteromedial right lower extremity. Follows with wound care. 8. Venous stasis ulcer of left lower extremity: Chronic 9. Tobacco use disorder: Active smoking; counseling provided. - Encourage smoking cessation - Provide nicotine replacement patches and lozenges as needed 10. Atrial fibrillation with RVR: Atrial fibrillation with rapid ventricular response : Atrial fibrillation with aberrant conduction noted on arrival with heart rate in 140?150s; rate improved to ~101 bpm after amiodarone. Anticoagulation adjustments discussed. - Hold apixaban (Eliquis) for now - Switched to therapeutic enoxaparin (Lovenox) - Check magnesium Plan: Mild acute kidney injury : Creatinine 1.3 with noted mild NORMA; received small fluid bolus (500 mL normal saline). Plan to monitor. - Reassess renal function - Documented small fluid challenge given in ED Alcohol use disorder : Reports reduction in intake to ~2?3 beers/week from prior heavier daily use. Hypertension, labile : Severely elevated BP on arrival (up to 222/169 mmHg); treated with labetalol with subsequent low BP readings reported. Diabetes mellitus type 2 : Known DM2; home medications include empagliflozin. Monitor POC glucose. Insulin sliding scale. Consistent carb diet. Coronary artery disease : Known CAD; evaluation for possible progression discussed. Continue aspirin, beta-kim if blood pressure allows. Would benefit from statin. Previously on Lipitor. Peripheral vascular disease : Known PVD with chronic lower extremity ulcers. Continue aspirin. Previously on Lipitor. Diabetic neuropathy : Reports decreased sensation at bottom of foot; known diabetic neuropathy. Anticoagulation management for atrial fibrillation : On chronic apixaban for AFib; adjustments planned due to current evaluation. - Hold apixaban (Eliquis) for now - Switch to therapeutic enoxaparin (Lovenox) Hospitalization bundle : Inpatient care elements documented. - Admit for cardiac arrhythmia management and treatment of lower extremity infection - Full code status confirmed - Identify surrogate decision-maker: aunt (Gwen Phipps) - Monitor CBC (due to antibiotic-related cytopenia risk) PDMP PDMP Reviewed: Not Reviewed Attestations 2 Medical Necessity Statement*: Continue admission for assessment management of ventricular tachycardia with antitachycardia pacing, cellulitis of left lower extremity, with DVT, assessment for any possible deeper infection and gentleman with underlying DM2 and additional comorbidities. and High MDM includes amount and/or complexity of data reviewed/ordered [ previous or external records, resulted lab(s)/test(s), ordered lab(s)/test(s) and other healthcare professional discussion] and described risk of complication, morbidity or mortality of management as documented Diagnoses Defibrillator discharge Z45.02 Ventricular tachycardia I47.20 Cellulitis L03.90 Heart failure with mildly reduced ejection fraction (HFmrEF) I50.20 Cardiac resynchronization therapy defibrillator (STOCKING INSPECTOR-D) in place Z95.810 Abnormal nuclear cardiac imaging test R93.1 Venous stasis ulcer of right lower extremity I83.019; L97.919 Venous stasis ulcer of left lower extremity I83.029; L97.929 Tobacco use disorder F17.200 Atrial fibrillation with RVR I48.91
--- NOTE | 2025-05-27 17:01 | CTR_ITS ---
PROCEDURE INFORMATION: Exam: CT Left Lower Extremity With Contrast, Leg Exam date and time: 05/27/2025 8:27 PM Age: 59 years old Clinical indication: Swelling, leg or foot; Additional info: Assess for any deep purulence TECHNIQUE: Imaging protocol: CT of the left lower extremity with intravenous contrast was performed. Exam focused on the lower leg. Radiation optimization: All CT scans at this facility use at least one of these dose optimization techniques: automated exposure control; mA and/or kV adjustment per patient size (includes targeted exams where dose is matched to clinical indication); or iterative reconstruction. Contrast material: OMNIPAQUE 350; Contrast volume: 100 ml; Contrast route: INTRAVENOUS (IV); COMPARISON: CT lower leg LT w con [id number] 11/21/2024 5:04 PM RADIATION DOSE METRICS: Total DLP (mGy-cm): 638.63 FINDINGS: Bones/joints: Redemonstration of extensive periosteal reaction involving the fibula and to a lesser extent the tibia. This does not seem significantly changed from the last exam. No fracture or dislocation. Achilles and plantar calcaneal enthesophytes noted again. Soft tissues: Redemonstration of extensive circumferential soft tissue edema characterized by skin thickening and fat stranding. No fluid collections. Diffuse muscular atrophy and fatty infiltration is comparable to the last exam. New line numerous subcutaneous varicosities noted again. CT/CT lower leg LT w con [id number] IMPRESSION: 1. Chronic diffuse edema throughout the visualized lower extremity characterized by skin thickening and fat stranding. The differential diagnosis includes chronic cellulitis and chronic venous stasis. 2. Extensive periosteal reaction in the fibula and involving portions of the tibia as before. Differential diagnosis includes chronic osteomyelitis as noted previously. 3. Redemonstration of numerous venous varicosities in the visualized lower extremity.
[2025-05-27 17:33] LABS: Magnesium 2.0 mg/dL (1.7-2.3)
[2025-05-27] MEDS: iohexol 350 mg/mL 500 mL Btl (per mL) IV (20:34)
--- NOTE | 2025-05-27 21:14 | PM.PN ---
Subjective Subjective: Patient continues to have left leg pain. He also was found to have acute venous duplex evidence of acute DVT in the left lower extremity. Denies any chest pain at this time. No fever or chills. No unusual shortness of breath. Medications: Medication Review Details: Current Medications Acetaminophen (Acetaminophen 325 Mg Tablet) 650 mg PO QID PRN PRN Reason: PAIN Last Admin: 05/27/25 08:38 Dose: 650 mg Amiodarone HCl (Amiodarone 200 Mg Tablet) 200 mg PO BID [facility] Last Admin: 05/27/25 17:37 Dose: 200 mg Aspirin (Aspirin 81 Mg Ec Tablet) 81 mg PO DAILY [facility] Last Admin: 05/27/25 08:38 Dose: 81 mg Cefepime HCl (Cefepime 1,000 Mg Sdv) 1,000 mg IVP Q12H [facility]; Protocol Last Admin: 05/27/25 09:09 Dose: 1,000 mg Enoxaparin Sodium (Enoxaparin 80 Mg/0.8 Ml Syringe) 80 mg SUBCUT Q12H [facility] Last Admin: 05/27/25 09:05 Dose: 80 mg Folic Acid (Folic Acid 1 Mg Tablet) 1 mg PO DAILY [facility] Last Admin: 05/27/25 08:38 Dose: 1 mg Linezolid (Zyvox Premix) 600 mg in 300 mls @ 300 mls/hr IV Q12H [facility]; Protocol Last Infusion: 05/27/25 10:30 Dose: Infused Multivitamins Therapeutic (Multivitamin Therapeutic Tablet) 1 tab PO DAILY [facility] Last Admin: 05/27/25 08:38 Dose: 1 tab Nicotine (Nicotine 21 Mg Patch) 1 patch TRANSDERMA DAILY PRN PRN Reason: WITHDRAWAL Nicotine Polacrilex (Nicotine 4 Mg Lozenge) 4 mg MUCOUS MEM Q4H PRN PRN Reason: NICOTINE CRAVINGS Ondansetron HCl (Ondansetron 2 Mg/Ml Sdv 2 Ml) 4 mg IVP Q8H PRN PRN Reason: vomiting, or N/V if npo Thiamine Mononitrate (Thiamine 100 Mg Tablet) 100 mg PO DAILY [facility] Last Admin: 05/27/25 08:38 Dose: 100 mg Vitals/I&O/Wt Last Vital Signs Temp 98.4 F 05/27/25 20:00 Pulse 73 05/27/25 20:00 Resp 17 05/27/25 20:00 BP 129/66 05/27/25 20:00 Pulse Ox 96 05/27/25 20:00 O2 Del Method Room Air 05/27/25 20:00 O2 Flow Rate 3 05/26/25 07:21 05/27/25 05/27/25 05/27/25 06:59 14:59 22:59 Intake Total 500 / 1840 660 / 660 Output Total 500 / 850 100 / 100 Balance 0 / 990 660 / 660 -100 / 560 Weight last 48 hrs Weight 172 lb 4.8 oz Weight 175 lb Physical Exam Narrative: GENERAL: The patient is alert and oriented times three. Not in any acute distress. HEENT: No significant pallor, icterus or lymphadenopathy.Oral cavity: There are no mucous membrane lesions. NECK: Trachea appears to be central. No masses noted. No JVD or thyromegaly appreciated. RESPIRATORY: Chest is symmetrical. No intercostals muscle retraction or any accessory muscle activation. There is no chest wall tenderness. Breath sounds are heard bilaterally. No rales or rhonchi heard. No evidence of any consolidation. BREASTS: Deferred. HEART: The heart sounds are normal. No S3 or S4. No significant murmurs. No diastolic murmurs. No pericardial rub ABDOMEN: No vessel pulsations or distention. No tenderness. No organomegaly appreciated. Bowel sounds are normally heard. : Deferred. RECTAL: Deferred. LYMPHATIC: No lymphadenopathy noted in the neck. EXTREMITIES: A deep healing ulcer on the medial aspect of the right leg. Features of chronic venous stasis bilaterally. The left foot is swollen and beefy red in appearance. Also seems to have some chronic nonpitting edema of the left leg. SKIN: As mentioned above NEUROPSYCHIATRIC: The patient is alert and oriented x3. No focal motor deficits. Data 05/27/25 04:01 05/27/25 04:01 Other Labs: Laboratory Last Values WBC 9.56 10^3/uL (3.29-11.43) 05/27/25 04:01 RBC 5.45 10^6/uL (3.85-5.65) 05/27/25 04:01 Hgb 14.10 g/dL (11.27-16.99) 05/27/25 04:01 Hct 43.9 % (37-53) 05/27/25 04:01 MCV 80.6 fl (82-101) L 05/27/25 04:01 MCH 25.9 pg (27-33) L 05/27/25 04:01 MCHC 32.1 g/dL (30-55) 05/27/25 04:01 RDW 15.1 % (12.1-15.1) 05/27/25 04:01 Plt Count 174 10^3/cmm (157-399) 05/27/25 04:01 MPV 11.3 fL (7.4-10.4) H 05/27/25 04:01 Neut % (Auto) 77.6 % 05/27/25 04:01 Lymph % (Auto) 14.0 % 05/27/25 04:01 Casey % (Auto) 6.7 % 05/27/25 04:01 Eos % (Auto) 0.8 % 05/27/25 04:01 Baso % (Auto) 0.3 % 05/27/25 04:01 Neut # (Auto) 7.41 10^3/uL (1.8-7.7) 05/27/25 04:01 Lymph # (Auto) 1.3 10^3/uL (0.8-4.8) 05/27/25 04:01 Casey # (Auto) 0.6 10^3/uL (0.2-0.9) 05/27/25 04:01 Eos # (Auto) 0.1 10^3/uL (0.0-0.8) 05/27/25 04:01 Baso # (Auto) 0.0 10^3/uL (0.0-0.1) 05/27/25 04:01 Nucleated RBC % (auto) 0 % 05/27/25 04:01 Nucleated RBCs # 0.0 /100WBC 05/27/25 04:01 PT 14.90 SECONDS (12.1-14.9) 05/26/25 07:45 INR 1.09 (0.8-1.2) 05/26/25 07:45 Sodium 135 mmol/L (136-145) L 05/27/25 04:01 Potassium 3.2 mmol/L (3.5-5.1) L 05/27/25 04:01 Chloride 100 mmol/L (98-107) 05/27/25 04:01 Carbon Dioxide 20 mmol/L (22-29) L 05/27/25 04:01 Anion Gap 18.2 (5-19) 05/27/25 04:01 BUN 13 mg/dL (6-20) 05/27/25 04:01 Creatinine 0.8 mg/dL (0.7-1.2) 05/27/25 04:01 GFR Calculation 99.3 mL/min (90-130) 05/27/25 04:01 Glucose 175 mg/dL (65-115) H 05/27/25 04:01 POC Glucose 236 mg/dL (70-110) H 05/27/25 16:03 Calculated Osmolality 284 mOsm/kg (285-295) L 05/27/25 04:01 Calcium 8.8 mg/dL (8.5-10.5) 05/27/25 04:01 Magnesium 2.0 mg/dL (1.7-2.3) 05/27/25 04:01 Total Bilirubin 0.5 mg/dL (0.15-1.2) 05/27/25 04:01 AST 62 U/L (0-40) H 05/27/25 04:01 ALT 31 U/L (0-41) 05/27/25 04:01 Alkaline Phosphatase 94 U/L (40-130) 05/27/25 04:01 Troponin T Baseline 27 ng/L (0-15) H 05/26/25 07:45 Troponin T 120 Minute 39.73 ng/L (0-15) H 05/26/25 09:54 Delta Troponin T 12.73 ABS# (0-10) H* 05/26/25 09:54 Troponin T Hi Sens 6Hr 47.51 ng/L (0-15) H 05/26/25 14:01 Troponin T Hi Sens 6Hr Delta 20.51 ng/L (0-12) H* 05/26/25 14:01 NT-Pro-B Natriuret Pep 327 pg/mL (0-125) H 05/26/25 07:45 Total Protein 7.6 g/dL (6.6-8.7) 05/27/25 04:01 Albumin 2.9 g/dL (3.5-5.2) L 05/27/25 04:01 Globulin 4.7 g/dL (1.3-4.6) H 05/27/25 04:01 TSH 3.19 uIU/mL (0.27-4.20) 05/26/25 07:45 Micro: Microbiology 05/26/25 16:24 Gram Stain - Final Leg - Left Wound Culture - Preliminary Coag positive Staphylococcus Other data: Echocardiogram on 05/26/2025 Normal LV size with a borderline low ejection fraction of 52%. Relative hypokinesia of the inferior wall. Mild to moderate concentric left-ventricular hypertrophy. Thickened aortic valve. Pacemaker/defibrillator wire in the right atrium and right ventricle There is no pericardial effusion. Comparison with the previous study is difficult because of the difference in the technical quality. A&P Assessment and plan 1. Acute deep vein thrombosis (DVT) of femoral vein of left lower extremity: Patient is on subcu Lovenox. The therapeutic dose may be continued. 2. Defibrillator discharge: The device interrogation revealed episodes of ventricular tachycardia -with antitachycardia pacing Etiology of the ventricular arrhythmia is not clear. Possibility of underlying coronary ischemia causing this is a consideration. Needs to be further evaluated. It also appears to me that the patient had ICD discharges for atrial fibrillation and rapid ventricular rate. No more discharges since the IV amiodarone. 3. Heart failure with improved ejection fraction (HFimpEF): Heart failure seems to be fairly compensated. Currently the patient is normotensive. 4. Abnormal nuclear cardiac imaging test: Patient had a Myocardial perfusion imaging in January of this year. Results are as mentioned above. He had only minimal ischemia based on the perfusion scan. But in view of his current presentation, this needs to be further evaluated. 5. Primary hypertension: Currently normotensive. May continue on the current medications. 6. Chronic atrial fibrillation: Patient has a history of chronic intermittent? Atrial fibrillation. He is on long-term oral anticoagulation. Currently switched to Lovenox. 7. Tobacco use disorder: Patient continues to smoke. Strongly advised to quit. Plan: Other problems are Mild renal insufficiency-return to baseline Hypokalemia, need to be corrected Chronic nonhealing ulcer Chronic nonpitting edema of the left lower extremity Possible cellulitis of the left leg IV amiodarone is switched to p.o. Patient requires a cardiac catheterization to rule out underlying coronary artery disease. Because of the acute DVT and the cellulitis I may hold off on this for the time being. Based on the clinical progress, further recommendations will be made PDMP PDMP Reviewed: Not Reviewed Attestations Medical Necessity Statement*: Patient requires continued hospital stay for close monitoring and further management Coding Level of Care Code 36301 Diagnoses Acute deep vein thrombosis (DVT) of femoral vein of left lower extremity I82.412 DVT location: lower extremity Affected thrombotic vein of extremity: femoral Laterality: left Defibrillator discharge Z45.02 Heart failure with improved ejection fraction (HFimpEF) I50.20 Abnormal nuclear cardiac imaging test R93.1 Primary hypertension I10 Hypertension type: primary hypertension Chronic atrial fibrillation I48.20 Atrial fibrillation type: unspecified chronic Tobacco use disorder F17.200
[2025-05-28 04:00] VITALS: BP 112/61; PULSE 71; RESP 16; TEMP 36.8; O2SAT 94
[2025-05-28 04:29] LABS: Hematocrit 39.8 % (37-53); Hemoglobin 12.70 g/dL (11.27-16.99); Mean Corpuscular HGB Conc 31.9 g/dL (30-55); Mean Corpuscular Hemoglobin 25.6 pg (27-33); Mean Corpuscular Volume 80.1 fl (82-101); Nucleated Red Blood Cells % 0 %; Platelet Count 174 10^3/cmm (157-399); Red Blood Count 4.97 10^6/uL (3.85-5.65); White Blood Count 7.39 10^3/uL (3.29-11.43)
[2025-05-28 04:59] LABS: Alanine Aminotransferase 30 U/L (0-41); Albumin Level 2.8 g/dL (3.5-5.2); Alkaline Phosphatase 87 U/L (40-130); Anion Gap 14.5 (5-19); Aspartate Amino Transferase 47 U/L (0-40); Blood Urea Nitrogen 11 mg/dL (6-20); Calcium 8.6 mg/dL (8.5-10.5); Carbon Dioxide 21 mmol/L (22-29); Chloride 102 mmol/L (98-107); Creatinine Clr Calc Pharmacy 115.3883; Globulin 4.3 g/dL (1.3-4.6); Glucose 163 mg/dL (65-115); Osmolality Calculated 281 mOsm/kg (285-295); Potassium 3.5 mmol/L (3.5-5.1); Sodium 134 mmol/L (136-145); Total Protein 7.1 g/dL (6.6-8.7)
[2025-05-28 06:00] VITALS: PULSE 70; BMI 26.8
--- NOTE | 2025-05-28 06:22 | PC.NURSE ---
Contacted about patients hemoglobin of 7.2, no new orders received
[2025-05-28 07:24] VITALS: BP 117/71; PULSE 73; RESP 20; TEMP 36.2; O2SAT 98
[2025-05-28] MEDS: multivitamin therapeutic Tablet 1 TAB PO (08:41)
--- NOTE | 2025-05-28 10:23 | PM.PN ---
Subjective Subjective: He overall is doing okay currently. No chest pain or pressure. No trouble breathing. Vitals/I&O/Wt Last Vital Signs Temp 97.2 F L 05/28/25 07:24 Pulse 73 05/28/25 07:24 Resp 20 H 05/28/25 07:24 BP 117/71 05/28/25 07:24 Pulse Ox 98 05/28/25 07:24 O2 Del Method Room Air 05/28/25 07:24 O2 Flow Rate 3 05/26/25 07:21 05/27/25 05/28/25 05/28/25 22:59 06:59 14:59 Intake Total 300 / 960 960 / 1920 240 / 240 Output Total 500 / 500 800 / 1300 Balance -200 / 460 160 / 620 240 / 240 Weight last 48 hrs Weight 77.763 kg Weight 78.154 kg Physical Exam Const: COMMON NORMALS: patient oriented x3 and alert GENERAL APPEARANCE: cooperative ORIENTATION/CONSCIOUSNESS: Yes awake HENMT: COMMON NORMALS: oropharynx normal Neck/C-Spine: COMMON NORMALS: no JVD Resp: COMMON NORMALS: normal respiratory effort and clear to auscultation bilaterally AUSCULTATION: clear to auscultation bilaterally Cardio: COMMON NORMALS: no JVD, regular rhythm, S1 normal heart sound present, S2 normal heart sound present and No murmurs present (Cardio) RHYTHM: regular rhythm HEART SOUNDS: S1 normal heart sound present and S2 normal heart sound present GI: COMMON NORMALS: Normal to inspection, nondistended, normoactive bowel sounds present, Soft to palpation and non-tender PALPATION: Yes Soft to palpation Extremity: COMMON NORMALS: no joint enlargement and no pedal edema NARRATIVE EXTREMITY EXAM: Left foot and ankle swollen; left distal foot warm and red, mildly less erythematous; edema present with mild improvement. Enlarged blister on left hallux. Blisters over 2nd and fourth toe, small blister on distal foot. Skin thickening more proximally and dry scales proximal foot and ankle. Neuro: COMMON NORMALS: patient oriented x3 and moves all extremities SENSORIUM/ORIENTATION: Yes alert Skin: COMMON NORMALS: no rashes or lesions noted GENERAL SKIN EXAM: no rashes or lesions noted OTHER: Redness over left lower leg with mild improvement; No cyanosis or mottling. Shallow ulcer on lateral left lower leg; shallow mostly healed ulcer on medial left lower extremity with dry skin; large ulcer on medial right lower leg; surrounding erythema around old ulcers on the left lower leg; suspected cellulitis of left lower extremity Data 05/28/25 03:54 05/28/25 03:54 Micro: Microbiology 05/26/25 16:24 Gram Stain - Final Leg - Left Wound Culture - Final Methicillin Resis Staph Aureus A&P Assessment and plan 1. Ventricular tachycardia: Reviewed cardiology's note, discussed with pharmacovigilance specialist. Coronary angiogram is planned to further assess for possible focus of ischemia as the cause of ventricular tachycardia episodes. For now continue treatment of DVT with anticoagulation and may consider proceeding with coronary angiogram tomorrow. Reassess chemistry. Episodes of fast heart rates including runs of ventricular tachycardia on ICD interrogation among AFib; suspected contributor to lightheadedness and AICD ATP. - Switch to p.o. Amio - Monitor telemetry for recurrent arrhythmia - Complete troponin EKG series - Limited echocardiogram obtained, reviewed, normal EF, relative hypokinesia of the inferior wall. Mild to moderate concentric LVH. - Per discussion with pharmacovigilance specialist, Tabatha at this time, transition to anticoagulation with Lovenox with further consideration of additional evaluation with coronary angiogram for possible cardiac ischemia Possible cardiac ischemia : Concern for ischemia contributing to arrhythmia/shocks given risk factors and prior abnormal stress test with small area of ischemia; cardiology considering further evaluation. - Complete coronary EKGs - Continue aspirin, anticoagulation with Lovenox. Monitor for risk of bleeding. Repeat blood counts. Beta-kim if blood pressure allows. - Assess for possible ischemia - Cardiology may plan for coronary angiography 2. Defibrillator discharge: So far without further discharges. Reviewed chemistry. Reviewed magnesium. Recurrent AICD discharges with chest pain : Presented after ~6 AICD shocks subjectively this morning with associated chest pain. ICD interrogation shows sinus tachycardia pacing due to VT episodes. Telemetry monitoring planned; concern that fast heart rates/arrhythmias triggered shocks. Currently without signs of sepsis. Baseline troponin 0.27. Chest X-ray without acute cardiopulmonary abnormalities. Reviewed vitals, CBC, INR, CMP, requested magnesium, reviewed troponin, EKG, chest x-ray, ED provider note, discussed with ED provider. Discussed with pharmacovigilance specialist. - Switched to p.o. Amio - Received replacement for hypokalemia. Recheck chemistry. - Monitor telemetry for recurrent arrhythmia 3. Cellulitis: Purulent cellulitis, with some worsening of purulence, superimposed on chronic diffuse edema with chronic venous stasis, skin thickening and fat stranding, extensive periosteal reaction in the fibula and portions of tibia. Pending orthopedic consultation. Discussed with patient consideration of medical management, although no guarantee that treatment will resolve his issue, no guarantee of no recurrence given persistent severe venous stasis, versus amputation, he states he considers proceeding with amputation. Will obtain arterial ultrasound to further assess arterial supply. Prior ultrasound back in October with concerns for inflow in the lower legs. Reviewed wound culture, noted MRSA. Continue linezolid. Collect blood culture. Discussed with nursing, case hardener. Left lower extremity cellulitis with erythema of left sandoval with old ulcers medially and laterally likely source of entry and erythema of distal left foot with bilateral erythema at the sides extending proximally. Left lower extremity cellulitis suspected since Sunday on background of chronic venous-type ulcers (shallow ulcers left leg; large ulcer medial right lower leg) with surrounding erythema; currently no fever, normal WBC; no signs of sepsis reported. - cont antibiotic coverage with cefepime - cont linezolid; monitor blood counts due to risk of cytopenia - Monitor risk of Clostridioides difficile with antibiotics - Reassess renal function during therapy 4. Chronic osteomyelitis: Newly diagnosed finding of extensive osteomyelitis of left lower extremity with significant periosteal reaction on the basis of chronic severe venous stasis. 5. Heart failure with mildly reduced ejection fraction (HFmrEF): Reviewed vitals, intake and output. Noted mild decrease in edema of lower extremity. Monitor for risk of acute CHF. Also of lower extremity edema although this may be related to chronic venous stasis as well as cellulitis on the left side. Known CHF; NT-proBNP 327. No acute cardiopulmonary findings on chest X-ray mentioned. 6. Cardiac resynchronization therapy defibrillator (PROFILING MACHINE SET UP OPERATOR-D) in place: Status post interrogation. Received antitachycardia pacing due to runs of VT. 7. Abnormal nuclear cardiac imaging test: In January 2025, reviewed stress test with noted small to medium sized area of prior infarct with minimal harini-infarct ischemia in the left circumflex territory. 8. Venous stasis ulcer of right lower extremity: Chronic, with chronic wound on anteromedial right lower extremity. Follows with wound care. 9. Venous stasis ulcer of left lower extremity: Chronic 10. Tobacco use disorder: Active smoking; counseling provided. - Encourage smoking cessation - Provide nicotine replacement patches and lozenges as needed 11. Atrial fibrillation with RVR: Atrial fibrillation with rapid ventricular response : Atrial fibrillation with aberrant conduction noted on arrival with heart rate in 140?150s; rate improved to ~101 bpm after amiodarone. Anticoagulation adjustments discussed. - Hold apixaban (Eliquis) for now - Switched to therapeutic enoxaparin (Lovenox) - Check magnesium Plan: Mild acute kidney injury : Resolved, on review of chemistry BUN down to 11 creatinine 0.7. - Reassess renal function Alcohol use disorder : Reports reduction in intake to ~2?3 beers/week from prior heavier daily use. Hypertension, labile : Blood pressures have been doing better. Severely elevated BP on arrival (up to 222/169 mmHg); treated with labetalol with subsequent low BP readings reported. Diabetes mellitus type 2 : Reviewed POC glucose. Known DM2; home medications include empagliflozin. Monitor POC glucose. Insulin sliding scale. Consistent carb diet. Coronary artery disease : Known CAD; evaluation for possible progression discussed. Continue aspirin, beta-kim if blood pressure allows. Would benefit from statin. Previously on Lipitor. Peripheral vascular disease : Known PVD with chronic lower extremity ulcers. Continue aspirin. Previously on Lipitor. Diabetic neuropathy : Reports decreased sensation at bottom of foot; known diabetic neuropathy. Anticoagulation management for atrial fibrillation : On chronic apixaban for AFib; adjustments planned due to current evaluation. - Hold apixaban (Eliquis) for now - Switch to therapeutic enoxaparin (Lovenox) Hospitalization bundle : Inpatient care elements documented. - Admit for cardiac arrhythmia management and treatment of lower extremity infection - Full code status confirmed - Identify surrogate decision-maker: aunt (Gwen Phipps) - Monitor CBC (due to antibiotic-related cytopenia risk) PDMP PDMP Reviewed: Not Reviewed Attestations Medical Necessity Statement*: Continue admission for assessment management of possible cardiac ischemic focus with ventricular tachycardia on presentation, DVT of left lower extremity, purulent cellulitis of left lower extremity, extensive osteomyelitis with periosteal reaction of left lower extremity. Diagnoses Ventricular tachycardia I47.20 Defibrillator discharge Z45.02 Cellulitis L03.90 Chronic osteomyelitis M86.60 Heart failure with mildly reduced ejection fraction (HFmrEF) I50.20 Cardiac resynchronization therapy defibrillator (PROFILING MACHINE SET UP OPERATOR-D) in place Z95.810 Abnormal nuclear cardiac imaging test R93.1 Venous stasis ulcer of right lower extremity I83.019; L97.919 Venous stasis ulcer of left lower extremity I83.029; L97.929 Tobacco use disorder F17.200 Atrial fibrillation with RVR I48.91
--- NOTE | 2025-05-28 10:26 | USR_ITS ---
PROCEDURE INFORMATION: Exam: US Duplex Left Lower Extremity Arteries Or Arterial Bypass Grafts Exam date and time: 05/28/2025 3:10 PM Age: 59 years old Clinical indication: Pain; Leg, lower; Left; Additional info: Assess arterial supply for bka TECHNIQUE: Imaging protocol: Left Real-time duplex scan of the arteries or arterial bypass grafts of the left lower extremity with 2-D bender scale, color Doppler flow and spectral waveform analysis. Images documented and saved. COMPARISON: US CV arterial duplex [facility] [id number] 02/28/2023 6:11 PM FINDINGS: Left external iliac artery: No occlusion or significant stenosis. Multiphasic arterial waveform with forward flow through diastole. Peak velocity 140 cm/s. Left common femoral artery: No occlusion or significant stenosis. Multiphasic arterial waveform with forward flow through diastole. Peak velocity 137 cm/s. Left superficial femoral artery: No occlusion or significant stenosis. Multiphasic arterial waveform with forward flow through diastole. Peak velocity 154 cm/s. Left popliteal artery: No occlusion or significant stenosis. Multiphasic arterial waveform with forward flow through diastole. Peak velocity 129 cm/s Left calf/foot arteries: No occlusion or significant stenosis in the posterior tibial artery. Monophasic arterial waveforms with forward flow through diastole. Dorsalis pedis artery is patent. Other findings: HEIDI: 0.96 US/CV arterial duplex [facility] [id number] IMPRESSION: 1. No arterial occlusion. No sign of hemodynamically significant arterial stenosis. 2. Waveforms demonstrate forward flow through diastole throughout the left lower extremity suggesting peripheral vasodilation.
[2025-05-28] MEDS: cefepime 1,000 mg SDV 1000 MG IVP ×2 (10:46→22:21)
[2025-05-28] MEDS: linezolid premix 600 MG/300 ML PREMIX 300 MG IV ×2 (10:49→22:21)
[2025-05-28 11:34] VITALS: BP 122/74; PULSE 78; RESP 25; TEMP 36.6; O2SAT 96
[2025-05-28 15:34] VITALS: BP 140/73; PULSE 74; RESP 25; TEMP 36.4; O2SAT 96
--- NOTE | 2025-05-28 16:46 | P.PN_ITS ---
Subjective 2 Subjective: The patient is doing okay. Continues to have left leg pain. He had a CT of the left leg yesterday and was found to have features suggesting chronic osteomyelitis. Patient is on antibiotics. Medications: Medication Review Details: Current Medications Acetaminophen (Acetaminophen 325 Mg Tablet) 650 mg PO QID PRN PRN Reason: PAIN Last Admin: 05/27/25 08:38 Dose: 650 mg Amiodarone HCl (Amiodarone 200 Mg Tablet) 200 mg PO BID [facility] Last Admin: 05/28/25 08:41 Dose: 200 mg Aspirin (Aspirin 81 Mg Ec Tablet) 81 mg PO DAILY JERRY Last Admin: 05/28/25 08:41 Dose: 81 mg Aspirin (Aspirin 325 Mg Tablet) 325 mg PO ONCE ONE Stop: 05/28/25 16:45 Cefepime HCl (Cefepime 1,000 Mg Sdv) 1,000 mg IVP Q12H [facility]; Protocol Last Admin: 05/28/25 10:46 Dose: 1,000 mg Diphenhydramine HCl (Diphenhydramine 50 Mg Capsule) 50 mg PO ONCE ONE Stop: 05/28/25 16:45 Enoxaparin Sodium (Enoxaparin 80 Mg/0.8 Ml Syringe) 80 mg SUBCUT Q12H JERRY Last Admin: 05/28/25 10:46 Dose: 80 mg Folic Acid (Folic Acid 1 Mg Tablet) 1 mg PO DAILY JERRY Last Admin: 05/28/25 08:41 Dose: 1 mg Linezolid (Zyvox Premix) 600 mg in 300 mls @ 300 mls/hr IV Q12H [facility]; Protocol Last Infusion: 05/28/25 12:24 Dose: Infused Sodium Chloride (Sodium Chloride 0.9%) 1,000 mls @ 50 mls/hr IV .Q20H ONE Stop: 05/29/25 12:43 Multivitamins Therapeutic (Multivitamin Therapeutic Tablet) 1 tab PO DAILY JERRY Last Admin: 05/28/25 08:41 Dose: 1 tab Nicotine (Nicotine 21 Mg Patch) 1 patch TRANSDERMA DAILY PRN PRN Reason: WITHDRAWAL Nicotine Polacrilex (Nicotine 4 Mg Lozenge) 4 mg MUCOUS MEM Q4H PRN PRN Reason: NICOTINE CRAVINGS Ondansetron HCl (Ondansetron 2 Mg/Ml Sdv 2 Ml) 4 mg IVP Q8H PRN PRN Reason: vomiting, or N/V if npo Thiamine Mononitrate (Thiamine 100 Mg Tablet) 100 mg PO DAILY JERRY Last Admin: 05/28/25 08:41 Dose: 100 mg Vitals/I&O/Wt Last Vital Signs Temp 97.6 F 05/28/25 15:34 Pulse 74 05/28/25 15:34 Resp 25 H 05/28/25 15:34 BP 140/73 05/28/25 15:34 Pulse Ox 96 05/28/25 15:34 O2 Del Method Room Air 05/28/25 15:34 O2 Flow Rate 3 05/26/25 07:21 05/28/25 05/28/25 05/28/25 06:59 14:59 22:59 Intake Total 960 / 1920 780 / 780 Output Total 800 / 1300 225 / 225 400 / 625 Balance 160 / 620 555 / 555 -400 / 155 Weight last 48 hrs Weight 171 lb 7 oz Weight 172 lb 4.8 oz Physical Exam 2 Narrative: GENERAL: The patient is alert and oriented times three. Not in any acute distress. HEENT: No significant pallor, icterus or lymphadenopathy.Oral cavity: There are no mucous membrane lesions. NECK: Trachea appears to be central. No masses noted. No JVD or thyromegaly appreciated. RESPIRATORY: Chest is symmetrical. No intercostals muscle retraction or any accessory muscle activation. There is no chest wall tenderness. Breath sounds are heard bilaterally. No rales or rhonchi heard. No evidence of any consolidation. BREASTS: Deferred. HEART: The heart sounds are normal. No S3 or S4. No significant murmurs. No diastolic murmurs. No pericardial rub ABDOMEN: No vessel pulsations or distention. No tenderness. No organomegaly appreciated. Bowel sounds are normally heard. : Deferred. RECTAL: Deferred. LYMPHATIC: No lymphadenopathy noted in the neck. EXTREMITIES: A deep healing ulcer on the medial aspect of the right leg. Features of chronic venous stasis bilaterally. The left foot is swollen and beefy red in appearance. Also seems to have some chronic nonpitting edema of the left leg. SKIN: As mentioned above NEUROPSYCHIATRIC: The patient is alert and oriented x3. No focal motor deficits. Data 05/28/25 03:54 05/28/25 03:54 Other Labs: Laboratory Last Values WBC 7.39 10^3/uL (3.29-11.43) 05/28/25 03:54 RBC 4.97 10^6/uL (3.85-5.65) 05/28/25 03:54 Hgb 12.70 g/dL (11.27-16.99) 05/28/25 03:54 Hct 39.8 % (37-53) 05/28/25 03:54 MCV 80.1 fl (82-101) L 05/28/25 03:54 MCH 25.6 pg (27-33) L 05/28/25 03:54 MCHC 31.9 g/dL (30-55) 05/28/25 03:54 RDW 15.2 % (12.1-15.1) H 05/28/25 03:54 Plt Count 174 10^3/cmm (157-399) 05/28/25 03:54 MPV 11.2 fL (7.4-10.4) H 05/28/25 03:54 Neut % (Auto) 73.6 % 05/28/25 03:54 Lymph % (Auto) 18.0 % 05/28/25 03:54 Andrew % (Auto) 6.1 % 05/28/25 03:54 Eos % (Auto) 1.5 % 05/28/25 03:54 Baso % (Auto) 0.4 % 05/28/25 03:54 Neut # (Auto) 5.44 10^3/uL (1.8-7.7) 05/28/25 03:54 Lymph # (Auto) 1.3 10^3/uL (0.8-4.8) 05/28/25 03:54 Andrew # (Auto) 0.5 10^3/uL (0.2-0.9) 05/28/25 03:54 Eos # (Auto) 0.1 10^3/uL (0.0-0.8) 05/28/25 03:54 Baso # (Auto) 0.0 10^3/uL (0.0-0.1) 05/28/25 03:54 Nucleated RBC % (auto) 0 % 05/28/25 03:54 Nucleated RBCs # 0.0 /100WBC 05/28/25 03:54 PT 14.90 SECONDS (12.1-14.9) 05/26/25 07:45 INR 1.09 (0.8-1.2) 05/26/25 07:45 Sodium 134 mmol/L (136-145) L 05/28/25 03:54 Potassium 3.5 mmol/L (3.5-5.1) 05/28/25 03:54 Chloride 102 mmol/L (98-107) 05/28/25 03:54 Carbon Dioxide 21 mmol/L (22-29) L 05/28/25 03:54 Anion Gap 14.5 (5-19) 05/28/25 03:54 BUN 11 mg/dL (6-20) 05/28/25 03:54 Creatinine 0.7 mg/dL (0.7-1.2) 05/28/25 03:54 GFR Calculation 115.8 mL/min (90-130) 05/28/25 03:54 Glucose 163 mg/dL (65-115) H 05/28/25 03:54 POC Glucose 244 mg/dL (70-110) H 05/28/25 11:01 Calculated Osmolality 281 mOsm/kg (285-295) L 05/28/25 03:54 Calcium 8.6 mg/dL (8.5-10.5) 05/28/25 03:54 Magnesium 2.0 mg/dL (1.7-2.3) 05/27/25 04:01 Total Bilirubin 0.3 mg/dL (0.15-1.2) 05/28/25 03:54 AST 47 U/L (0-40) H 05/28/25 03:54 ALT 30 U/L (0-41) 05/28/25 03:54 Alkaline Phosphatase 87 U/L (40-130) 05/28/25 03:54 Troponin T Baseline 27 ng/L (0-15) H 05/26/25 07:45 Troponin T 120 Minute 39.73 ng/L (0-15) H 05/26/25 09:54 Delta Troponin T 12.73 ABS# (0-10) H* 05/26/25 09:54 Troponin T Hi Sens 6Hr 47.51 ng/L (0-15) H 05/26/25 14:01 Troponin T Hi Sens 6Hr Delta 20.51 ng/L (0-12) H* 05/26/25 14:01 NT-Pro-B Natriuret Pep 327 pg/mL (0-125) H 05/26/25 07:45 Total Protein 7.1 g/dL (6.6-8.7) 05/28/25 03:54 Albumin 2.8 g/dL (3.5-5.2) L 05/28/25 03:54 Globulin 4.3 g/dL (1.3-4.6) 05/28/25 03:54 TSH 3.19 uIU/mL (0.27-4.20) 05/26/25 07:45 Micro: Microbiology 05/28/25 11:22 Blood Culture - Preliminary Blood SPECIMEN COLLECTED 05/28/25 11:20 Blood Culture - Preliminary Blood SPECIMEN COLLECTED 05/26/25 16:24 Gram Stain - Final Leg - Left Wound Culture - Final Methicillin Resis Staph Aureus A&P Assessment and plan 1. 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 May continue on the Lovenox for the time being 2. Defibrillator discharge: The device interrogation revealed episodes of ventricular tachycardia -with antitachycardia pacing Etiology of the ventricular arrhythmia is not clear. Possibility of underlying coronary ischemia causing this is a consideration. Needs to be further evaluated. It also appears to me that the patient had ICD discharges for atrial fibrillation withrapid ventricular rate. No more discharges since the IV amiodarone. Patient may continue on the current p.o. amiodarone. 3. Heart failure with improved ejection fraction (HFimpEF): Heart failure seems to be fairly compensated. Currently the patient is normotensive. 4. Abnormal nuclear cardiac imaging test: In view of the abnormal Myocardial perfusion imaging, new onset of ventricular tachycardia, in order to further evaluate his coronary status, patient requires a cardiac catheterization. The risks and benefits were discussed with the patient. The risk of bleeding, hematoma, vascular injury, myocardial infarction, myocardial perforation, malignant cardiac arrhythmias ,CVA, renal failure and other concomitant complications were explained in detail. Patient understood this well and consented to proceed. I also discussed with the patient's aunt about the procedure with the risks and benefits. Apparently the aunt has power of trademark attorney on this patient. She understand the risk, benefits and alternatives and is wanting to go ahead with the procedure. 5. Primary hypertension: Currently normotensive. May continue on the current medications. 6. Chronic atrial fibrillation: Patient has a history of chronic intermittent? Atrial fibrillation. He is on long-term oral anticoagulation. Currently switched to Lovenox. 7. Tobacco use disorder: Patient continues to smoke. Strongly advised to quit. Plan: Other problems are Mild renal insufficiency-return to baseline Hypokalemia, need to be corrected Chronic nonhealing ulcer Chronic nonpitting edema of the left lower extremity Possible cellulitis of the left leg May continue the current medication. Will go ahead and schedule for the cardiac catheterization tomorrow. Based on the results, further recommendations will be made. PDMP PDMP Reviewed: Not Reviewed Attestations 2 Medical Necessity Statement*: Patient requires continued hospital stay for close monitoring and further management Coding Level of Care Code 58362 Diagnoses Femoral popliteal artery thrombus I74.3 Defibrillator discharge Z45.02 Heart failure with improved ejection fraction (HFimpEF) I50.20 Abnormal nuclear cardiac imaging test R93.1 Primary hypertension I10 Hypertension type: primary hypertension Chronic atrial fibrillation I48.20 Atrial fibrillation type: unspecified chronic Tobacco use disorder F17.200
--- NOTE | 2025-05-28 17:25 | PM.CONSULT ---
Providers/Reason For Consult Consulting Physician/Specialty*: Darrian Yun DO/orthopedics Reason for Consult*: Consultation for possible left below the knee amputation due to chronic left lower extremity wounds and cellulitis with osteomyelitis Requesting Physician: Dr. Kelsey Attending Physician: Vin Kelsey Primary Care Provider: Oliver Dempsey MD History of Present Illness History of Present Illness Andrew Ruggiero is a 59 year old male admitted the hospital 05/26/2025 who presented to the emergency department after having multiple shocks from his defibrillator. Patient also has had chronic left foot wounds and cellulitis, He has had worsening pain in this area as a result for further evaluation orthopedics was consulted for treatment recommendations. He had a previous CT scan of the lower extremity no appreciable drainable abscess however chronic osteomyelitis appreciated patient states a history of chronic wounds to his lower extremity which has significant wound deformities throughout with evidence of patient's had multiple areas of granulation wounds that close down the wound area but he states this been exposed to bone over the fibula region where he has a chronic small wound over there as well. Patient currently being seen by cardiology and planning on a cardiac catheterization tomorrow. Patient currently has acute DVT in left SFA through popliteal artery patient was on Eliquis but being held and using Lovenox for patient to do catheterization. Review of Systems General: Reports: 10 or more systems reviewed and unremarkable except in HPI and below Medications/Allergies Home Medications ?Medication ?Instructions ?Recorded ?Confirmed ?Last Taken ?Type acetaminophen 325 mg tablet 650 mg PO QID PRN Pain 01/07/25 05/26/25 02/24/25 History (Tylenol) apixaban 5 mg tablet (Eliquis) 5 mg PO BID #180 tabs 01/07/25 05/26/25 05/25/25 Rx Held on 02/20/25. Instructions: Resume on 02/22/25. aspirin 81 mg tablet,delayed 81 mg PO DAILY #90 tabs 01/07/25 05/26/25 05/25/25 Rx release Held on 02/20/25. Instructions: Resume on 02/22/25. empagliflozin 10 mg tablet 10 mg PO DAILY #90 tabs 01/07/25 05/26/25 05/25/25 Rx (Jardiance) metoprolol succinate 100 mg 50 mg (1/2 x 100 mg) PO BID #90 01/07/25 05/26/25 05/25/25 Rx tablet,extended release 24 hr tabs potassium chloride 20 mEq 20 meq PO BID #180 tabs 01/07/25 05/26/25 05/25/25 Rx tablet,extended release sacubitril 49 mg-valsartan 51 mg 1 tab PO BID #90 tabs 01/07/25 05/26/25 02/24/25 Rx tablet (Entresto) spironolactone 25 mg tablet 12.5 mg (1/2 x 25 mg) PO DAILY #90 01/07/25 05/26/25 05/25/25 Rx tabs thiamine HCl (vitamin B1) 100 mg 100 mg PO DAILY #90 tabs 01/08/25 05/26/25 05/25/25 Rx tablet folic acid 1 mg tablet 1 mg PO DAILY #30 tabs 02/01/25 05/26/25 02/24/25 Rx multivitamin with folic acid 400 1 tab PO DAILY #30 tabs 02/01/25 05/26/25 05/25/25 Rx mcg tablet (Thera) isosorbide mononitrate 30 mg 30 mg PO DAILY #30 tabs 02/02/25 05/26/25 02/24/25 Rx tablet,extended release 24 hr Allergies Allergy/AdvReac Type Severity Reaction Status Date / Time No Known Allergies Allergy Verified 05/14/25 11:03 Current Medications Generic Name Dose Route Start Last Admin Trade Name Freq PRN Reason Stop Dose Admin Acetaminophen 650 mg 05/26/25 14:33 05/27/25 08:38 Acetaminophen 325 Mg Tablet PO 650 mg QID PRN Administration PAIN Amiodarone HCl 200 mg 05/27/25 18:00 05/28/25 17:06 Amiodarone 200 Mg Tablet PO 200 mg BID JERRY Administration Aspirin 81 mg 05/26/25 14:33 05/28/25 08:41 Aspirin 81 Mg Ec Tablet PO 81 mg DAILY JERRY Administration Cefepime HCl 1,000 mg 05/26/25 10:00 05/28/25 10:46 Cefepime 1,000 Mg Sdv IVP 1,000 mg Q12H JERRY Administration Protocol Enoxaparin Sodium 80 mg 05/26/25 10:05/28/25 10:46 Enoxaparin 80 Mg/0.8 Ml Syringe SUBCUT 80 mg Q12H JERRY Administration Folic Acid 1 mg 05/27/25 09:00 05/28/25 08:41 Folic Acid 1 Mg Tablet PO 1 mg DAILY JERRY Administration Linezolid 600 mg in 300 mls @ 300 mls/hr 05/26/25 10:00 05/28/25 12:24 Zyvox Premix IV Infused Q12H JERRY Infusion Protocol Multivitamins Therapeutic 1 tab 05/27/25 09:00 05/28/25 08:41 Multivitamin Therapeutic Tablet PO 1 tab DAILY JERRY Administration Thiamine Mononitrate 100 mg 05/27/25 09:00 05/28/25 08:41 Thiamine 100 Mg Tablet PO 100 mg DAILY JERRY Administration PFSH Acute PFSH: Medical History (Updated 05/28/25 @ 16:51 by Hector Day MD) Tobacco use disorder Heart failure with mildly reduced ejection fraction (HFmrEF) Elevated blood pressure reading with diagnosis of hypertension Alcoholism with alcohol dependence Diabetes type 2, controlled Neuropathy History of non-ST elevation myocardial infarction (NSTEMI) Peripheral vascular disease Chronic atrial fibrillation Primary hypertension CHF (congestive heart failure) LVEF 64% 01/30/2025 Surgical History Hx of umbilical hernia repair 07/05/23 lap repair of umbilical hernia with mesh- Dr Obrien History of implantable cardioverter-defibrillator (ICD) placement Family History Mother CAD (coronary artery disease) Social History Smoking and tobacco/nicotine status: current every day tobacco/nicotine user cigarettes [ Other cigarette details: 1.5 pack per day x 40 years, currently down to 3-4 cig/day] Alcohol intake: current Alcohol intake frequency: 3 or more drinks per day Alcohol type: beer Substance/Drug Use: former Date of last use: marijuana in 2021 Household members: children Marital status: Single Number of children: 2 Number of grandchildren: 0 Current occupational status: disabled Special duc needs: No Agree to transfusion: Yes Vitals/I&O/Wt Last Vital Signs Temp 97.6 F 05/28/25 15:34 Pulse 74 05/28/25 15:34 Resp 25 H 05/28/25 15:34 BP 140/73 05/28/25 15:34 Pulse Ox 96 05/28/25 15:34 O2 Del Method Room Air 05/28/25 15:34 O2 Flow Rate 3 05/26/25 07:21 05/28/25 05/28/25 05/28/25 06:59 14:59 22:59 Intake Total 960 / 1920 780 / 780 Output Total 800 / 1300 225 / 225 400 / 625 Balance 160 / 620 555 / 555 -400 / 155 Weight last 48 hrs Weight 171 lb 7 oz Weight 172 lb 4.8 oz Physical Exam Narrative: Examination left lower extremity: Examination left lower extremity patient has significant pitting edema and swelling and cellulitis about the left foot no palpable fluctuance appreciated he does have some weeping edema and edematous blistering at the toes. No significant proximal tracking erythema. Patient has chronic wounds over the medial and lateral aspects of the pretibial region with chronic venous stasis changes all the way up to the proximal third of the lower leg. No subcutaneous emphysema or bullae appreciated, compartments are soft compressible, patient is able to wiggle the toes plantarflex dorsiflex ankle unable to palpate pulse secondary to patient's significant edema. Patient has multiple defects and deformity around the pretibial region where previous large granulation wounds has now filled in he states previously had chronic wounds that were very expansive and had some visibility of bone at the time. Right lower extremity has comparable granulating and healing wounds particular on the medial face of the pretibial region no significant expressible purulence or erythema in this area Data 05/28/25 03:54 05/28/25 03:54 Micro: Microbiology 05/28/25 11:22 Blood Culture - Preliminary Blood SPECIMEN COLLECTED 05/28/25 11:20 Blood Culture - Preliminary Blood SPECIMEN COLLECTED 05/26/25 16:24 Gram Stain - Final Leg - Left Wound Culture - Final Methicillin Resis Staph Aureus Other CT: Radiologist's impression: Ordering Provider/Ordering MD: Vin Kelsey MD Date of Service: 05/27/25 Procedure(s): CT lower leg LT w con [id number] Accession Number(s): [id number] Report Number: [id number] PROCEDURE INFORMATION: Exam: CT Left Lower Extremity With Contrast, Leg Exam date and time: 05/27/2025 8:27 PM Age: 59 years old Clinical indication: Swelling, leg or foot; Additional info: Assess for any deep purulence TECHNIQUE: Imaging protocol: CT of the left lower extremity with intravenous contrast was performed. Exam focused on the lower leg. Radiation optimization: All CT scans at this facility use at least one of these dose optimization techniques: automated exposure control; mA and/or kV adjustment per patient size (includes targeted exams where dose is matched to clinical indication); or iterative reconstruction. Contrast material: OMNIPAQUE 350; Contrast volume: 100 ml; Contrast route: INTRAVENOUS (IV); COMPARISON: CT lower leg LT w con [id number] 11/21/2024 5:04 PM RADIATION DOSE METRICS: Total DLP (mGy-cm): 638.63 FINDINGS: Bones/joints: Redemonstration of extensive periosteal reaction involving the fibula and to a lesser extent the tibia. This does not seem significantly changed from the last exam. No fracture or dislocation. Achilles and plantar calcaneal enthesophytes noted again. Soft tissues: Redemonstration of extensive circumferential soft tissue edema characterized by skin thickening and fat stranding. No fluid collections. Diffuse muscular atrophy and fatty infiltration is comparable to the last exam. New line numerous subcutaneous varicosities noted again. CT/CT lower leg LT w con [id number] IMPRESSION: 1. Chronic diffuse edema throughout the visualized lower extremity characterized by skin thickening and fat stranding. The differential diagnosis includes chronic cellulitis and chronic venous stasis. 2. Extensive periosteal reaction in the fibula and involving portions of the tibia as before. Differential diagnosis includes chronic osteomyelitis as noted previously. 3. Redemonstration of numerous venous varicosities in the visualized lower extremity. A&P Assessment and plan 1. Chronic osteomyelitis: 2. Chronic ulcer of le. Acute deep vein thrombosis (DVT) of femoral vein of left lower extremity: 4. Venous stasis ulcer of left lower extremity: 5. ICD (implantable cardioverter-defibrillator) in place: 6. Cellulitis: Plan: Labs reviewed Imaging reviewed Patient's previous medical history reviewed from hospitalization Unable to order MRI secondary to patient having defibrillator Cardiology on board and planning on cardiac catheterization tomorrow morning Internal medicine on board as primary Orthopedics consulted for possible left below the knee amputation Discussed treatment options with patient as far as continued observation and left below the knee amputation, patient elects to proceed with observation at this time and follow-up after cardiac catheterization we will revisit with patient tomorrow Recommend n.p.o. at midnight Patient at this point I am 59-year-old with chronic wounds of the left lower extremity appears to have chronic osteomyelitis on his CT scan with significant periosteal reaction around the fibula as well as portions of the tibia he is states he has had chronic large wounds over this these have granulated in fairly well but at this point in time he has noticeable cellulitis no appreciable or collectible wound abscess or fluid collection for drainage. At this point in time I was consulted for evaluation and treatment recommendations as he has been discussing and considering possible amputation with primary. Orthopedics was evaluated asked to evaluate and provide treatment recommendations initially on my evaluation I definitely feel patient has chronic osteomyelitis of the fibula per the left lower leg given the significant periosteal reaction he has considerable edema throughout the lower extremity consistent with cellulitis as well as he has chronic venous stasis ulcerations and skin changes. This goes up to the proximal third which would render below the knee amputation to have some bit of a challenge just depending on how high this would have to go in or able to have appropriate skin coverage which I did discuss this in detail with him all the way to the point where this may potentially even need an [id number] amputation. At this point in time his white count is normal and stable and he has been afebrile. He is going for cardiac catheterization in the morning he would like for us to follow-up again with him afterwards to discuss his options as he would like to sit and think about this. At this point in time I feel this is reasonable as this is a lot to take in he is currently on IV antibiotics of note he does have a acute DVT on the left lower extremity as well which would also render very challenging as patient's been on blood thinners he has a clot and performing of an amputation to this extremity who presents challenges with patient having a clot on this side as well. He understands his treatment options in detail and at this point in time patient decides to observe at this time and think about his options and potentially consider rediscussing tomorrow on what he wishes to do. He does understand possibilities of continually putting this off that this chronic wound may potentially get worse causing him to get more more systemic and septic and even possible increased risk of mortality. Patient understands this and at this point in time we will follow-up with patient tomorrow after he has his cardiac catheterization. Patient understands agrees to current plan. Questions answered PDMP PDMP Reviewed: Not Reviewed Coding Level of Care Code Acute Code for Chg Fwd Diagnoses Chronic osteomyelitis M86.60 Chronic ulcer of leg L97.909 Acute deep vein thrombosis (DVT) of femoral vein of left lower extremity I82.412 DVT location: lower extremity Affected thrombotic vein of extremity: femoral Laterality: left Venous stasis ulcer of left lower extremity I83.029; L97.929 ICD (implantable cardioverter-defibrillator) in place Z95.810 Cellulitis L03.90 Time Spent (min) 60
[2025-05-28 18:26] LABS: MRSA PCR OZH (swab) MRSA Detected (Negative)
[2025-05-29] VITALS (7 sets, daily range): BP systolic 87–121; BP diastolic 61–70; PULSE 72–87; RESP 17–22; TEMP 36.5–37.2; O2SAT 95–99
[2025-05-29 04:41] LABS: Hematocrit 39.9 % (37-53); Hemoglobin 12.80 g/dL (11.27-16.99); Mean Corpuscular HGB Conc 32.1 g/dL (30-55); Mean Corpuscular Hemoglobin 25.7 pg (27-33); Mean Corpuscular Volume 80.0 fl (82-101); Nucleated Red Blood Cells % 0 %; Platelet Count 191 10^3/cmm (157-399); Red Blood Count 4.99 10^6/uL (3.85-5.65); White Blood Count 6.36 10^3/uL (3.29-11.43)
[2025-05-29 05:07] LABS: Alanine Aminotransferase 30 U/L (0-41); Albumin Level 2.8 g/dL (3.5-5.2); Alkaline Phosphatase 89 U/L (40-130); Anion Gap 18.0 (5-19); Aspartate Amino Transferase 40 U/L (0-40); Blood Urea Nitrogen 10 mg/dL (6-20); Calcium 8.7 mg/dL (8.5-10.5); Carbon Dioxide 21 mmol/L (22-29); Chloride 101 mmol/L (98-107); Creatinine Clr Calc Pharmacy 100.7421; Globulin 4.6 g/dL (1.3-4.6); Glucose 108 mg/dL (65-115); Osmolality Calculated 282 mOsm/kg (285-295); Potassium 4.0 mmol/L (3.5-5.1); Sodium 136 mmol/L (136-145); Total Protein 7.4 g/dL (6.6-8.7)
[2025-05-29] MEDS: multivitamin therapeutic Tablet 1 TAB PO (07:49)
--- NOTE | 2025-05-29 09:00 | P.PN_ITS ---
Subjective 2 Subjective: The patient he is feeling okay. No new arrhythmias on the monitor. Vital signs seems to be stable. Still remaining afebrile Patient has features of osteomyelitis of the left leg. He is being evaluated for possible amputation. Because of his DVT in the left leg, an IVC filter also was requested prior to the amputation Medications: Medication Review Details: Current Medications Acetaminophen (Acetaminophen 325 Mg Tablet) 650 mg PO QID PRN PRN Reason: PAIN Last Admin: 05/27/25 08:38 Dose: 650 mg Amiodarone HCl (Amiodarone 200 Mg Tablet) 200 mg PO BID [facility] Last Admin: 05/29/25 07:49 Dose: 200 mg Aspirin (Aspirin 81 Mg Ec Tablet) 81 mg PO DAILY [facility] Last Admin: 05/29/25 07:53 Dose: Not Given Cefepime HCl (Cefepime 1,000 Mg Sdv) 1,000 mg IVP Q12H [facility]; Protocol Last Admin: 05/28/25 22:21 Dose: 1,000 mg Enoxaparin Sodium (Enoxaparin 80 Mg/0.8 Ml Syringe) 80 mg SUBCUT Q12H JERRY Last Admin: 05/28/25 22:21 Dose: 80 mg Folic Acid (Folic Acid 1 Mg Tablet) 1 mg PO DAILY JERRY Last Admin: 05/29/25 07:49 Dose: 1 mg Linezolid (Zyvox Premix) 600 mg in 300 mls @ 300 mls/hr IV Q12H [facility]; Protocol Last Infusion: 05/28/25 23:28 Dose: Infused Sodium Chloride (Sodium Chloride 0.9%) 1,000 mls @ 50 mls/hr IV .Q20H ONE Stop: 05/30/25 03:29 Last Admin: 05/29/25 07:49 Dose: 50 mls/hr Multivitamins Therapeutic (Multivitamin Therapeutic Tablet) 1 tab PO DAILY JERRY Last Admin: 05/29/25 07:49 Dose: 1 tab Nicotine (Nicotine 21 Mg Patch) 1 patch TRANSDERMA DAILY PRN PRN Reason: WITHDRAWAL Nicotine Polacrilex (Nicotine 4 Mg Lozenge) 4 mg MUCOUS MEM Q4H PRN PRN Reason: NICOTINE CRAVINGS Ondansetron HCl (Ondansetron 2 Mg/Ml Sdv 2 Ml) 4 mg IVP Q8H PRN PRN Reason: vomiting, or N/V if npo Thiamine Mononitrate (Thiamine 100 Mg Tablet) 100 mg PO DAILY JERRY Last Admin: 05/29/25 07:49 Dose: 100 mg Vitals/I&O/Wt Last Vital Signs Temp 97.7 F 05/29/25 07:36 Pulse 79 05/29/25 07:36 Resp 20 H 05/29/25 07:36 BP 115/70 05/29/25 07:36 Pulse Ox 96 05/28/25 15:34 O2 Del Method Room Air 05/28/25 15:34 O2 Flow Rate 3 05/26/25 07:21 05/28/25 05/29/25 05/29/25 22:59 06:59 14:59 Intake Total 240 / 1020 300 / 1320 Output Total 950 / 1175 600 / 1775 275 / 275 Balance -710 / -155 -300 / -455 -275 / -275 Weight last 48 hrs Weight 170 lb 9 oz Weight 171 lb 7 oz Physical Exam 2 Narrative: GENERAL: The patient is alert and oriented times three. Not in any acute distress. HEENT: No significant pallor, icterus or lymphadenopathy.Oral cavity: There are no mucous membrane lesions. NECK: Trachea appears to be central. No masses noted. No JVD or thyromegaly appreciated. RESPIRATORY: Chest is symmetrical. No intercostals muscle retraction or any accessory muscle activation. There is no chest wall tenderness. Breath sounds are heard bilaterally. No rales or rhonchi heard. No evidence of any consolidation. BREASTS: Deferred. HEART: The heart sounds are normal. No S3 or S4. No significant murmurs. No diastolic murmurs. No pericardial rub ABDOMEN: No vessel pulsations or distention. No tenderness. No organomegaly appreciated. Bowel sounds are normally heard. : Deferred. RECTAL: Deferred. LYMPHATIC: No lymphadenopathy noted in the neck. EXTREMITIES: A deep healing ulcer on the medial aspect of the right leg. Features of chronic venous stasis bilaterally. The left foot is swollen and beefy red in appearance. Also seems to have some chronic nonpitting edema of the left leg. SKIN: As mentioned above NEUROPSYCHIATRIC: The patient is alert and oriented x3. No focal motor deficits. Data 05/29/25 03:24 05/29/25 03:24 Micro: Microbiology 05/28/25 11:22 Blood Culture - Preliminary Blood SPECIMEN COLLECTED 05/28/25 11:20 Blood Culture - Preliminary Blood SPECIMEN COLLECTED 05/26/25 16:24 Gram Stain - Final Leg - Left Wound Culture - Final Methicillin Resis Staph Aureus A&P Assessment and plan 1. Acute deep vein thrombosis (DVT) of femoral vein of left lower extremity: I reviewed the venous duplex study from the second of this month. The SFA/popliteal thrombus-was meant to be femoral /popliteal vein thrombosis. 2. Defibrillator discharge: The device interrogation revealed episodes of ventricular tachycardia -with antitachycardia pacing Etiology of the ventricular arrhythmia is not clear. Possibility of underlying coronary ischemia causing this is a consideration. Needs to be further evaluated. It also appears to me that the patient had ICD discharges for atrial fibrillation withrapid ventricular rate. No more discharges since the IV amiodarone. Patient may continue on the current p.o. amiodarone. 3. Heart failure with improved ejection fraction (HFimpEF): Heart failure seems to be fairly compensated. Currently the patient is normotensive. Will continue on the current medications. 4. Abnormal nuclear cardiac imaging test: In view of the abnormal Myocardial perfusion imaging, new onset of ventricular tachycardia, in order to further evaluate his coronary status, patient requires a cardiac catheterization. The risks and benefits were discussed with the patient. The risk of bleeding, hematoma, vascular injury, myocardial infarction, myocardial perforation, malignant cardiac arrhythmias ,CVA, renal failure and other concomitant complications were explained in detail. Patient understood this well and consented to proceed. I also discussed with the patient's aunt about the procedure with the risks and benefits. Apparently the aunt has power of chronograph operator on this patient. She understand the risk, benefits and alternatives and is wanting to go ahead with the procedure. 5. Primary hypertension: Currently normotensive. May continue on the current medications. 6. Chronic atrial fibrillation: Patient has a history of chronic intermittent? Atrial fibrillation. He is on long-term oral anticoagulation. Currently switched to Lovenox. This may be switched back to Eliquis, once he is ready to be discharged. 7. Tobacco use disorder: Patient continues to smoke. Strongly advised to quit. Plan: Other problems are Mild renal insufficiency-return to baseline Hypokalemia, currently normokalemic Chronic nonhealing ulcer/osteomyelitis Chronic nonpitting edema of the left lower extremity Possible cellulitis of the left leg The patient currently has features of chronic osteomyelitis. He is being considered for amputation. Because of the DVT and concern of dislocating the venous thrombus, an IVC filter was requested. Dr. Sue is evaluating for this. I requested Dr. Sue to do the cardiac catheterization also, since he is going to do the IVC filter. I discussed this with the patient as well, and he is agreeable. PDMP PDMP Reviewed: Not Reviewed Attestations 2 Medical Necessity Statement*: Deferred to the primary Coding Level of Care Code 71147 Diagnoses Acute deep vein thrombosis (DVT) of femoral vein of left lower extremity I82.412 DVT location: lower extremity Affected thrombotic vein of extremity: femoral Laterality: left Defibrillator discharge Z45.02 Heart failure with improved ejection fraction (HFimpEF) I50.20 Abnormal nuclear cardiac imaging test R93.1 Primary hypertension I10 Hypertension type: primary hypertension Chronic atrial fibrillation I48.20 Atrial fibrillation type: unspecified chronic Tobacco use disorder F17.200
--- NOTE | 2025-05-29 10:22 | PM.PN ---
Subjective Subjective: He reports he is doing ok this morning. He has no chest pain or pressure. There have been no changes with his leg. Vitals/I&O/Wt Last Vital Signs Temp 97.7 F 05/29/25 07:36 Pulse 79 05/29/25 07:36 Resp 20 H 05/29/25 07:36 BP 115/70 05/29/25 07:36 Pulse Ox 96 05/28/25 15:34 O2 Del Method Room Air 05/28/25 15:34 O2 Flow Rate 3 05/26/25 07:21 05/28/25 05/29/25 05/29/25 22:59 06:59 14:59 Intake Total 240 / 1020 300 / 1320 Output Total 950 / 1175 600 / 1775 275 / 275 Balance -710 / -155 -300 / -455 -275 / -275 Weight last 48 hrs Weight 77.366 kg Weight 77.763 kg Physical Exam Const: COMMON NORMALS: patient oriented x3 and alert GENERAL APPEARANCE: cooperative ORIENTATION/CONSCIOUSNESS: Yes awake HENMT: COMMON NORMALS: oropharynx normal Neck/C-Spine: COMMON NORMALS: no JVD Resp: COMMON NORMALS: normal respiratory effort and clear to auscultation bilaterally AUSCULTATION: clear to auscultation bilaterally Cardio: COMMON NORMALS: no JVD, regular rhythm, S1 normal heart sound present, S2 normal heart sound present and No murmurs present (Cardio) RHYTHM: regular rhythm HEART SOUNDS: S1 normal heart sound present and S2 normal heart sound present GI: COMMON NORMALS: Normal to inspection, nondistended, normoactive bowel sounds present, Soft to palpation and non-tender PALPATION: Yes Soft to palpation Extremity: COMMON NORMALS: no joint enlargement and no pedal edema NARRATIVE EXTREMITY EXAM: Left foot and ankle swollen; left distal foot warm and red, mildly less erythematous; edema present with mild improvement. Enlarged blister on left hallux. Blisters over 2nd and fourth toe, small blister on distal foot. Skin thickening more proximally and dry scales proximal foot and ankle. Neuro: COMMON NORMALS: patient oriented x3 and moves all extremities SENSORIUM/ORIENTATION: Yes alert Skin: COMMON NORMALS: no rashes or lesions noted GENERAL SKIN EXAM: no rashes or lesions noted OTHER: Redness over left lower leg with mild improvement; No cyanosis or mottling. Shallow ulcer on lateral left lower leg; shallow mostly healed ulcer on medial left lower extremity with dry skin; large ulcer on medial right lower leg; surrounding erythema around old ulcers on the left lower leg; suspected cellulitis of left lower extremity Data 06/02/25 02:57 06/02/25 02:57 Micro: Microbiology 05/28/25 11:22 Blood Culture - Preliminary Blood SPECIMEN COLLECTED 05/28/25 11:20 Blood Culture - Preliminary Blood SPECIMEN COLLECTED 05/26/25 16:24 Gram Stain - Final Leg - Left Wound Culture - Final Methicillin Resis Staph Aureus A&P Assessment and plan 1. Ventricular tachycardia: Reviewed cardiology's note, discussed with distribution tech. Coronary angiogram is planned to further assess for possible focus of ischemia as the cause of ventricular tachycardia episodes. For now continue treatment of DVT with anticoagulation and may consider proceeding with coronary angiogram tomorrow. Reassess chemistry with risk of GABRIELE. Episodes of fast heart rates including runs of ventricular tachycardia on ICD interrogation among AFib; suspected contributor to lightheadedness and AICD ATP. - Switch to p.o. Amio - Monitor telemetry for recurrent arrhythmia - Complete troponin EKG series - Limited echocardiogram obtained, reviewed, normal EF, relative hypokinesia of the inferior wall. Mild to moderate concentric LVH. - Per discussion with distribution tech, hold-Eliquis at this time, transition to anticoagulation with Lovenox with further consideration of additional evaluation with coronary angiogram for possible cardiac ischemia Possible cardiac ischemia : Concern for ischemia contributing to arrhythmia/shocks given risk factors and prior abnormal stress test with small area of ischemia; cardiology considering further evaluation. - Complete coronary EKGs - Continue aspirin, anticoagulation with Lovenox. Monitor for risk of bleeding. Repeat blood counts. Beta-kim if blood pressure allows. - Assess for possible ischemia - Cardiology may plan for coronary angiography 2. Defibrillator discharge: So far without further discharges. Reviewed chemistry. Reviewed magnesium. Recurrent AICD discharges with chest pain : Presented after ~6 AICD shocks subjectively this morning with associated chest pain. ICD interrogation shows sinus tachycardia pacing due to VT episodes. Telemetry monitoring planned; concern that fast heart rates/arrhythmias triggered shocks. Currently without signs of sepsis. Baseline troponin 0.27. Chest X-ray without acute cardiopulmonary abnormalities. Reviewed vitals, CBC, INR, CMP, requested magnesium, reviewed troponin, EKG, chest x-ray, ED provider note, discussed with ED provider. Discussed with distribution tech. - Switched to p.o. Amio - Received replacement for hypokalemia. Recheck chemistry. - Monitor telemetry for recurrent arrhythmia 3. Cellulitis: Purulent cellulitis, with some worsening of purulence, superimposed on chronic diffuse edema with chronic venous stasis, skin thickening and fat stranding, extensive periosteal reaction in the fibula and portions of tibia. Pending orthopedic consultation. Discussed with patient consideration of medical management, although no guarantee that treatment will resolve his issue, no guarantee of no recurrence given persistent severe venous stasis, versus amputation, he states he considers proceeding with amputation. Will obtain arterial ultrasound to further assess arterial supply. Prior ultrasound back in October with concerns for inflow in the lower legs. Reviewed wound culture, noted MRSA. Continue linezolid. Collect blood culture. Discussed with nursing, cyanide case hardener. Left lower extremity cellulitis with erythema of left sandoval with old ulcers medially and laterally likely source of entry and erythema of distal left foot with bilateral erythema at the sides extending proximally. Left lower extremity cellulitis suspected since Sunday on background of chronic venous-type ulcers (shallow ulcers left leg; large ulcer medial right lower leg) with surrounding erythema; currently no fever, normal WBC; no signs of sepsis reported. - cont antibiotic coverage with cefepime - cont linezolid; monitor blood counts due to risk of cytopenia - Monitor risk of Clostridioides difficile with antibiotics - Reassess renal function during therapy 4. Chronic osteomyelitis: Newly diagnosed finding of extensive osteomyelitis of left lower extremity with significant periosteal reaction on the basis of chronic severe venous stasis. 5. Heart failure with mildly reduced ejection fraction (HFmrEF): Reviewed vitals, intake and output. Noted mild decrease in edema of lower extremity. Monitor for risk of acute CHF. Also of lower extremity edema although this may be related to chronic venous stasis as well as cellulitis on the left side. Known CHF; NT-proBNP 327. No acute cardiopulmonary findings on chest X-ray mentioned. 6. Cardiac resynchronization therapy defibrillator (BAKERY TECHNICIAN-D) in place: Status post interrogation. Received antitachycardia pacing due to runs of VT. 7. Abnormal nuclear cardiac imaging test: In January 2025, reviewed stress test with noted small to medium sized area of prior infarct with minimal harini-infarct ischemia in the left circumflex territory. 8. Venous stasis ulcer of right lower extremity: Chronic, with chronic wound on anteromedial right lower extremity. Follows with wound care. 9. Venous stasis ulcer of left lower extremity: Chronic 10. Tobacco use disorder: Active smoking; counseling provided. - Encourage smoking cessation - Provide nicotine replacement patches and lozenges as needed 11. Atrial fibrillation with RVR: Atrial fibrillation with rapid ventricular response : Atrial fibrillation with aberrant conduction noted on arrival with heart rate in 140?150s; rate improved to ~101 bpm after amiodarone. Anticoagulation adjustments discussed. - Hold apixaban (Eliquis) for now - Switched to therapeutic enoxaparin (Lovenox) - Check magnesium Plan: Mild acute kidney injury : Resolved, on review of chemistry BUN down to 11 creatinine 0.7. - Reassess renal function Alcohol use disorder : Reports reduction in intake to ~2?3 beers/week from prior heavier daily use. Hypertension, labile : Blood pressures have been doing better. Severely elevated BP on arrival (up to 222/169 mmHg); treated with labetalol with subsequent low BP readings reported. Diabetes mellitus type 2 : Reviewed POC glucose. Known DM2; home medications include empagliflozin. Monitor POC glucose. Insulin sliding scale. Consistent carb diet. Coronary artery disease : Known CAD; evaluation for possible progression discussed. Continue aspirin, beta-kim if blood pressure allows. Would benefit from statin. Previously on Lipitor. Peripheral vascular disease : Known PVD with chronic lower extremity ulcers. Continue aspirin. Previously on Lipitor. Diabetic neuropathy : Reports decreased sensation at bottom of foot; known diabetic neuropathy. Anticoagulation management for atrial fibrillation : On chronic apixaban for AFib; adjustments planned due to current evaluation. - Hold apixaban (Eliquis) for now - Switch to therapeutic enoxaparin (Lovenox) Hospitalization bundle : Inpatient care elements documented. - Admit for cardiac arrhythmia management and treatment of lower extremity infection - Full code status confirmed - Identify surrogate decision-maker: aunt (Gwen Phipps) - Monitor CBC (due to antibiotic-related cytopenia risk) PDMP PDMP Reviewed: Not Reviewed Attestations Medical Necessity Statement*: Continue admission for assessment management of possible cardiac ischemic focus with ventricular tachycardia on presentation, DVT of left lower extremity, purulent cellulitis of left lower extremity, extensive osteomyelitis with periosteal reaction of left lower extremity. and High MDM includes amount and/or complexity of data reviewed/ordered [ resulted lab(s)/test(s), ordered lab(s)/test(s) and other healthcare professional discussion] and described risk of complication, morbidity or mortality of management as documented Diagnoses Ventricular tachycardia I47.20 Defibrillator discharge Z45.02 Cellulitis L03.90 Chronic osteomyelitis M86.60 Heart failure with mildly reduced ejection fraction (HFmrEF) I50.20 Cardiac resynchronization therapy defibrillator (BAKERY TECHNICIAN-D) in place Z95.810 Abnormal nuclear cardiac imaging test R93.1 Venous stasis ulcer of right lower extremity I83.019; L97.919 Venous stasis ulcer of left lower extremity I83.029; L97.929 Tobacco use disorder F17.200 Atrial fibrillation with RVR I48.91
[2025-05-29] MEDS: linezolid premix 600 MG/300 ML PREMIX 300 MG IV ×2 (10:26→21:54)
[2025-05-29] MEDS: cefepime 1,000 mg SDV 1000 MG IVP ×2 (10:26→21:54)
--- NOTE | 2025-05-29 11:06 | W.PM.OPSUD ---
Surgery/Procedure H&P Update DATE OF PROCEDURE: May 29, 2025 DATE H&P PERFORMED: 05/26/25 H&P UPDATE INFORMATION: I have reviewed H&P completed within last 30 days, I have examined patient prior to procedure and Changes to prior documentation as noted here CHANGES TO PREVIOUS DOCUMENTATION: Patient has presented with ventricular tachycardia with ICD shocks. Plan is for coronary angiogram per primary resistance machine welder setter. Patient also needs amputation of left lower extremity. He has acute DVT from femoral vein to popliteal vein on the left lower extremity. Orthopedic surgery and internal medicine team have requested IVC filter placement as risk of dislodgment of DVTs increased during amputation procedure. Patient also needs to be off of anticoagulation for the procedure. PREOP DIAGNOSIS: Ventricular tachycardia/ DVT PRIMARY INDICATION FOR PROCEDURE: Ventricular tachycardia/ DVT PLANNED PROCEDURE: Operation Date: 05/29/25 08:30 Proposed Procedures p Cardiac Catheterization(Left) - Ismael Sue MD IVC filter placement PATIENT REASSESSED PRIOR TO SEDATION, WITH NO CHANGE NOTED: Yes PHYSICAL EXAM: alert, oriented x 3, clear to auscultation bilaterally and regular rate & rhythm AIRWAY EVAL/ANESTHESIA PLAN: normal airway, ASA III, Local Anesthesia, Risks, benefits & alternatives of sedation and/or procedure discussed and Patient agrees to continue as planned ADDITIONAL INFORMATION: Moderate sedation
--- NOTE | 2025-05-29 12:37 | P.PCN_ITS ---
Procedure Note: Date of procedure: 05/29/25 Pre-procedure diagnosis: Ventricular tachycardia/ DVT Post-procedure diagnosis: other (Patent coronary arteries. Successul deployment of IVC filter) Procedure: Patent coronary arteries. Successful deployment of IVC filter Performing Provider: Ismael Sue Estimated blood loss (mL): 10 Complications: None Condition: stable Disposition: floor Coding Level of Care Code Acute Code for [facility] Fwd
--- NOTE | 2025-05-29 18:28 | P.PN_ITS ---
Subjective 2 Subjective: Patient seen and examined today clinical picture remains the same still chronic osteomyelitis as well as cellulitis and edema with chronic wounds in the left lower extremity. Today had cardiac catheterization and also had IVC filter placed due to patient having acute DVT to left lower extremity and possible surgery to the left lower extremity. Patient at this point in time states he is ready and wants to proceed with a left below the knee amputation Vitals/I&O/Wt Last Vital Signs Temp 97.9 F 05/29/25 16:00 Pulse 79 05/29/25 16:00 Resp 22 H 05/29/25 16:00 BP 116/61 05/29/25 16:00 Pulse Ox 97 05/29/25 16:00 O2 Del Method Room Air 05/29/25 16:00 O2 Flow Rate 3 05/26/25 07:21 05/29/25 05/29/25 05/29/25 06:59 14:59 22:59 Intake Total 300 / 1320 300 / 300 Output Total 600 / 1775 275 / 275 475 / 750 Balance -300 / -455 -475 / -450 Weight last 48 hrs Weight 170 lb 9 oz Weight 171 lb 7 oz Physical Exam 2 Narrative: Examination left lower extremity: Examination left lower extremity patient has significant pitting edema and swelling and cellulitis about the left foot no palpable fluctuance appreciated he does have some weeping edema and edematous blistering at the toes. No significant proximal tracking erythema. Patient has chronic wounds over the medial and lateral aspects of the pretibial region with chronic venous stasis changes all the way up to the proximal third of the lower leg. No subcutaneous emphysema or bullae appreciated, compartments are soft compressible, patient is able to wiggle the toes plantarflex dorsiflex ankle unable to palpate pulse secondary to patient's significant edema. Patient has multiple defects and deformity around the pretibial region where previous large granulation wounds has now filled in he states previously had chronic wounds that were very expansive and had some visibility of bone at the time. Right lower extremity has comparable granulating and healing wounds particular on the medial face of the pretibial region no significant expressible purulence or erythema in this area Data 05/29/25 03:24 05/29/25 03:24 Micro: Microbiology 05/28/25 11:22 Blood Culture - Preliminary Blood NEGATIVE TO DATE 05/28/25 11:20 Blood Culture - Preliminary Blood NEGATIVE TO DATE A&P Assessment and plan 1. Chronic osteomyelitis: 2. Chronic ulcer of le. Acute deep vein thrombosis (DVT) of femoral vein of left lower extremity: 4. Venous stasis ulcer of left lower extremity: 5. ICD (implantable cardioverter-defibrillator) in place: 6. Cellulitis: Plan: Labs reviewed Imaging reviewed Patient's previous medical history reviewed from hospitalization Unable to order MRI secondary to patient having defibrillator Cardiology on board patient underwent cardiac catheterization as well as IVC filter placement today Internal medicine on board as primary IV antibiotics Orthopedics consulted for possible left below the knee amputation NPO MN Plan for OR tomorrow for left below the knee amputation Patient at this point in time has thought about his treatment options and through shared decision making he would like to pursue a left below the knee amputation. Patient does have a complicated picture from the standpoint of he has an acute left lower extremity DVT as well as a acute on chronic infection to the left lower extremity with chronic wounds as well as chronic osteomyelitis of the fibula. At this point in time he wishes to only have a below the knee amputation he does understand the soft tissue envelope may not be amendable for this but we will do best to try and salvage as much of his limb as possible. We once again we talked about his options in detail as far as continue nonoperative operative mention risk of surgery include but not limited to make a better make it worse, wound complications, further infection, further surgery and amputations, phantom pain, acute blood loss, Possible dislodging of DVT and PE. Understanding risk of surgery patient elects proceed with surgical intervention for left below the knee amputation all questions have been answered at this time. Once again we had an IVC filter placed today in the case of having to do a tourniquet to the left thigh for left below the knee amputation my plan moving forward at this point in time is to try and perform this amputation without a tourniquet which he does understand will likely have some increase in blood loss due to this but in hopes of trying to prevent any type of dislodgment of this however if for absolute necessary intraoperatively and for blood loss control purposes if we need to utilize a tourniquet we have the IVC filter in place just in case. Once again I talk with the patient about this all in detail he understands and is ready to proceed with a left below the knee amputation unfortunately I do not feel as though he is at a place where he is okay to wait multiple months until the clot clears before proceeding with the surgery as he does have an acute infection as well. At this point in time he understands all of our discussion and ready to proceed with surgical intervention tomorrow questions answered PDMP PDMP Reviewed: Not Reviewed Attestations 2 Medical Necessity Statement*: Per primary?continue admission for assessment management of possible cardiac ischemic focus with ventricular tachycardia on presentation, DVT of left lower extremity, purulent cellulitis of left lower extremity, extensive osteomyelitis with periosteal reaction of left lower extremity. Coding Level of Care Code [facility] Diagnoses Chronic osteomyelitis M86.60 Chronic ulcer of leg L97.909 Acute deep vein thrombosis (DVT) of femoral vein of left lower extremity I82.412 Affected thrombotic vein of extremity: femoral DVT location: lower extremity Laterality: left Venous stasis ulcer of left lower extremity I83.029; L97.929 ICD (implantable cardioverter-defibrillator) in place Z95.810 Cellulitis L03.90 Time Spent (min) 25
[2025-05-30] VITALS (20 sets, daily range): BP systolic 97–151; BP diastolic 48–84; PULSE 68–82; RESP 16–25; TEMP 36.1–37.2; O2SAT 90–97
[2025-05-30 04:35] LABS: Hematocrit 39.4 % (37-53); Hemoglobin 12.50 g/dL (11.27-16.99); Mean Corpuscular HGB Conc 31.7 g/dL (30-55); Mean Corpuscular Hemoglobin 25.9 pg (27-33); Mean Corpuscular Volume 81.7 fl (82-101); Nucleated Red Blood Cells % 0 %; Platelet Count 147 10^3/cmm (157-399); Red Blood Count 4.82 10^6/uL (3.85-5.65); White Blood Count 6.73 10^3/uL (3.29-11.43)
[2025-05-30 05:02] LABS: Anion Gap 15.1 (5-19); Blood Urea Nitrogen 12 mg/dL (6-20); Calcium 8.6 mg/dL (8.5-10.5); Carbon Dioxide 22 mmol/L (22-29); Chloride 101 mmol/L (98-107); Glucose 119 mg/dL (65-115); Osmolality Calculated 279 mOsm/kg (285-295); Potassium 4.1 mmol/L (3.5-5.1); Sodium 134 mmol/L (136-145)
[2025-05-30 05:13] LABS: Creatinine Clr Calc Pharmacy 134.5855
[2025-05-30] MEDS: multivitamin therapeutic Tablet 1 TAB PO (08:08)
--- NOTE | 2025-05-30 09:32 | W.PM.OPSUD ---
Surgery/Procedure H&P Update DATE OF PROCEDURE: May 30, 2025 DATE H&P PERFORMED: 05/28/25 H&P UPDATE INFORMATION: I have reviewed H&P completed within last 30 days, I have examined patient prior to procedure and No changes to prior documentation CHANGES TO PREVIOUS DOCUMENTATION: Patient at this point time we reviewed his treatment options and through shared decision making at this point in time he is ready and wishes to proceed with a left below the knee amputation possible [id number] amputation. He has an IVC filter in place plan will be to attempt to try and do this with no tourniquet unless for lifesaving measures. He understands the risks with all of this and is ready to proceed with surgical intervention all questions answered at this time. Consent reviewed and signed with patient. PREOP DIAGNOSIS: Left lower extremity acute infection with chronic osteomyelitis and chronic PRIMARY INDICATION FOR PROCEDURE: Left lower extremity acute infection with chronic osteomyelitis and chronic wounds (nonhealing PLANNED PROCEDURE: Operation Date: 05/29/25 08:30 Proposed Procedures p Cardiac Catheterization(Left) - Hector Day MD Operation Date: 05/30/25 09:10 Proposed Procedures p Below Knee Amputation Amputation Below Knee/ Possible above knee(Left) - Darrian Yun DO
--- NOTE | 2025-05-30 09:53 | PM.PN ---
Vitals/I&O/Wt Last Vital Signs Temp 97.5 F L 05/30/25 07:33 Pulse 77 05/30/25 07:33 Resp 24 H 05/30/25 07:33 BP 117/67 05/30/25 07:33 Pulse Ox 95 05/30/25 07:33 O2 Del Method Room Air 05/30/25 07:33 O2 Flow Rate 3 05/26/25 07:21 05/29/25 05/30/25 05/30/25 22:59 06:59 14:59 Intake Total 300 / 600 1000 / 1600 Output Total 1125 / 1400 600 / 2000 Balance -825 / -800 400 / -400 Weight last 48 hrs Weight 172 lb 3.2 oz Weight 170 lb 9 oz Data 05/30/25 02:57 05/30/25 02:57 Micro: Microbiology 05/28/25 11:22 Blood Culture - Preliminary Blood NEGATIVE TO DATE 05/28/25 11:20 Blood Culture - Preliminary Blood NEGATIVE TO DATE A&P PDMP PDMP Reviewed: Not Reviewed Coding Level of Care Code Acute Code for [facility]
[2025-05-30] MEDS: ceFAZolin 2,000 mg SDV 2000 MG IVP (10:15)
--- NOTE | 2025-05-30 10:28 | P.ANESASSM_ITS ---
Pre-Anesthetic Assessment Height/Weight: Height 5 ft 7 in Weight 172 lb 3.2 oz Temp Pulse Resp BP Pulse Ox O2 Del Method O2 Flow Rate 97.5 F L 77 24 H 117/67 95 Room Air 3 05/30/25 07:33 05/30/25 07:33 05/30/25 07:33 05/30/25 07:33 05/30/25 07:33 05/30/25 07:33 05/26/25 07:21 Preop Diagnosis: Left lower extremity chronic osteomyelitis with acute cellulitis and lower Operation Date: 05/29/25 08:30 Proposed Procedures p Cardiac Catheterization(Left) - Hector Day MD Operation Date: 05/30/25 09:10 Proposed Procedures p Below Knee Amputation Amputation Below Knee/ Possible above knee(Left) - Darrian Yun DO Was Beta Herman taken within 24 hours: N/A Was Clonidine taken within 24 hours: N/A Social Alcohol and Tobacco Drinks 3 tall boys a day Exam alert and oriented x 3 Airway Submandibular: within normal limits Cervical ROM: within normal limits Mallampati: Class III Comments: Comments: Very few teeth left, denies any loose Anesthetic Plan ASA status: 4 Anesthesia: General Other: No prior issues with anesthesia NPO since yesterday evening Hx of HFrEF improved on recent echo, EF 52% Ventricular pacemaker in place Patient actively has acute DVT from femoral vein to popliteal vein on the surgical lower extremity. IVC filter was placed yesterday Current smoker Chronic alcohol use Type 2 diabetes. Recent BS 119 Labs reviewed from 05/30/2025 reviewed acceptable for procedure. Hemoglobin 12.5 Type and screen performed Plan for GETA. Unable to place tourniquet due to activity DVT. Patient agrees to blood products if necessary Medications/Allergies Home Medications ?Medication ?Instructions ?Recorded ?Confirmed ?Last Taken ?Type acetaminophen 325 mg tablet 650 mg PO QID PRN Pain 05/26/25 02/24/25 History (Tylenol) apixaban 5 mg tablet (Eliquis) 5 mg PO BID #180 tabs 0 01/07/25 05/26/25 05/25/25 Rx Held on 02/20/25. Instructions: Resume on 02/22/25. aspirin 81 mg tablet,delayed 81 mg PO DAILY #90 tabs 0 01/07/25 05/26/25 05/25/25 Rx release Held on 02/20/25. Instructions: Resume on 02/22/25. empagliflozin 10 mg tablet 10 mg PO DAILY #90 tabs 05/26/25 05/25/25 Rx (Jardiance) metoprolol succinate 100 mg 50 mg (1/2 x 100 mg) PO BI D #90 01/07/25 05/26/25 05/25/25 Rx tablet,extended release 24 hr tabs potassium chloride 20 mEq 20 meq PO BID #180 tabs 12/2305/26/25 05/25/25 Rx tablet,extended release sacubitril 49 mg-valsartan 51 mg 1 tab PO BID #90 tabs 01/07/25 05/26/25 02/24/25 Rx tablet (Entresto) spironolactone 25 mg tablet 12.5 mg (1/2 x 25 mg) PO D AILY #90 01/07/25 05/26/25 05/25/25 Rx tabs thiamine HCl (vitamin B1) 100 mg 100 mg PO DAILY #90 t abs 01/08/25 05/26/25 05/25/25 Rx tablet folic acid 1 mg tablet 1 mg PO DAILY #30 tabs 02/0105/26/25 02/24/25 Rx multivitamin with folic acid 400 1 tab PO DAILY #30 ta bs 02/01/25 05/26/25 05/25/25 Rx mcg tablet (Thera) isosorbide mononitrate 30 mg 30 mg PO DAILY #30 tabs 0 02/02/25 05/26/25 02/24/25 Rx tablet,extended release 24 hr Allergies Allergy/AdvReac Type Severity Reaction Status Date / Time No Known Allergies Allergy Verified 05/14/25 11:03 Current Medications Generic Name Dose Route Start Last Admin Trade Name Freq PRN Reason Stop Dose Admin Acetaminophen 650 mg 05/26/25 14:33 05/27/25 08:38 Acetaminophen 325 Mg Tablet PO 650 mg QID PRN Administration PAIN Amiodarone HCl 200 mg 05/27/25 18:00 05/30/25 08:08 Amiodarone 200 Mg Tablet PO 200 mg BID JERRY Administration Aspirin 81 mg 05/26/25 14:33 05/30/25 08:08 Aspirin 81 Mg Ec Tablet PO 81 mg DAILY JERRY Administration Cefepime HCl 1,000 mg 05/26/25 10:00 05/29/25 21:54 Cefepime 1,000 Mg Sdv IVP 1,000 mg Q12H JERRY Administration Protocol Enoxaparin Sodium 80 mg 05/26/25 10:00 05/29/25 10:15 Enoxaparin 80 Mg/0.8 Ml Syringe SUBCUT Not Given On Hold: 05/29/25 18:38 Q12H [facility] Folic Acid 1 mg 05/27/25 09:00 05/30/25 08:08 Folic Acid 1 Mg Tablet PO 1 mg DAILY JERRY Administration Linezolid 600 mg in 300 mls @ 300 mls/hr 05/26/25 10:00 05/29/25 22:58 Zyvox Premix IV Infused Q12H [facility] Infusion Protocol Sodium Chloride 1,000 mls @ 100 mls/hr 05/29/25 14:15 05/30/25 03:48 Sodium Chloride 0.9% IV Not Given .Q10H [facility] Multivitamins Therapeutic 1 tab 05/27/25 09:00 05/30/25 08:08 Multivitamin Therapeutic Tablet PO 1 tab DAILY JERRY Administration Thiamine Mononitrate 100 mg 05/27/25 09:00 05/30/25 08:08 Thiamine 100 Mg Tablet PO 100 mg DAILY JERRY [facility] Anesthesia Medical History (Updated 05/28/25 @ 16:51 by Hector Day MD) Tobacco use disorder Heart failure with mildly reduced ejection fraction (HFmrEF) Elevated blood pressure reading with diagnosis of hypertension Alcoholism with alcohol dependence Diabetes type 2, controlled Neuropathy History of non-ST elevation myocardial infarction (NSTEMI) Peripheral vascular disease Chronic atrial fibrillation Primary hypertension CHF (congestive heart failure) LVEF 64% 01/30/2025 Surgical History Hx of umbilical hernia repair 07/05/23 lap repair of umbilical hernia with mesh- Dr Obrien History of implantable cardioverter-defibrillator (ICD) placement Family History Mother CAD (coronary artery disease) Social History Smoking and tobacco/nicotine status: current every day tobacco/nicotine user cigarettes [ Other cigarette details: 1.5 pack per day x 40 years, currently down to 3-4 cig/day] Alcohol intake: current Alcohol intake frequency: 3 or more drinks per day Alcohol type: beer Substance/Drug Use: former Date of last use: marijuana in 2021 Household members: children Marital status: Single Number of children: 2 Number of grandchildren: 0 Current occupational status: disabled Special duc needs: No Agree to transfusion: Yes Data Anesthesia 05/30/25 02:57 05/30/25 02:57 Short CBC 05/29/25 05/30/25 Range/Units 03:24 02:57 WBC 6.36 6.73 (3.29-11.43) 10^3/uL Hgb 12.80 12.50 (11.27-16.99) g/dL Hct 39.9 39.4 (37-53) % MCV 80.0 L 81.7 L (82-101) fl Plt Count 191 147 L (157-399) 10^3/cmm Neut % (Auto) 74.2 74.3 % Neut # (Auto) 4.72 4.99 (1.8-7.7) 10^3/uL BMP 05/29/25 05/30/25 03:24 02:57 Sodium 136 134 L Potassium 4.0 4.1 Chloride 101 101 Carbon Dioxide 21 L 22 BUN 10 12 Creatinine 0.8 0.6 L Glucose 108 119 H Calcium 8.7 8.6 Liver Function 05/29/25 Range/Units 03:24 Total Bilirubin 0.5 (0.15-1.2) mg/dL AST 40 (0-40) U/L ALT 30 (0-41) U/L Alkaline Phosphatase 89 (40-130) U/L Albumin 2.8 L (3.5-5.2) g/dL Microbiology 05/28/25 11:22 Blood Culture - Preliminary Blood NEGATIVE TO DATE 05/28/25 11:20 Blood Culture - Preliminary Blood NEGATIVE TO DATE Cardiac Studies: 2 Echocardiogram 11/22/24 Echocardiogram Limited Views 05/26/25 Sestamibi Stress Test (Cardiology) 02/01
--- NOTE | 2025-05-30 12:57 | P.BOP_ITS ---
Date of Procedure: 05/30/2025 Surgeon: Darrian Yun DO [employer] Resources Executive Assistant(s): Kyler Yun PA-C Procedure(s) performed: Left below the knee amputation Findings of the procedure(s): Underwent procedure as planned without issues or complications, taken recovery in stable condition Estimated blood loss: 125 mL Specimen(s) removed: Left foot and leg amputated and sent for specimen Post-operative diagnosis: Left lower leg acute infection with chronic osteomyelitis and cellulitis chronic wounds nonhealing
--- NOTE | 2025-05-30 12:59 | PM.OP ---
Operative Report Date of procedure: May 30, 2025 Surgeon: Darrian Yun DO [employer] Instructor: Kyler Yun PA-C: PA was necessary for assistance in this case with leg positioning retraction and protection of neurovascular structures, assistance with amputation , assist in wound closure and dressing application. Anesthesia: General Estimated blood loss: 125mL none Procedure: PREOP DX: Left lower extremity acute infection with chronic osteomyelitis and chronic wounds (nonhealing) POSTOP DX: Left lower leg acute infection with chronic osteomyelitis and cellulitis chronic wounds nonhealing PROCEDURES: Left below knee amputation (modifier 22?increased complexity due to inability to utilize tourniquet and patient's chronic wounds requiring complexity for flap closure this increase surgical demand. Time it took to perform procedure is standard with tourniquet this is a less than an hour procedure and the increased demand and flap closure required twice as long of time) COMPLICATIONS: There were no complications. INDICATIONS FOR PROCEDURE:? The patient is a 59yo male presenting with a chronic left cellulitits and soft tissue infection with chronic nonhealing wounds and chronic osteomyelitis.? Patient's failed conservative treatment I have outlined my approach, the course, the inherent risks, benefits, complications, and alternatives.? The patient has been optimized from a medical standpoint with full understanding of the risks, benefits, complications, and alternatives, patient has elected to proceed with surgery today. Patient had an IVC filter placement plan is to perform this procedure with no tourniquet. Patient signed consent the preoperative holding area. Consent reviewed and signed patient understands agrees to current plan. Questions answered. ? PROCEDURE IN DETAIL: ?The patient was identified in the preoperative holding area .. ?The operative site was clearly marked and identified, and informed consent was obtained. ?Patient did participate in identifying the operative site. ?Patient was transferred to the operating table and positioned in supine position, where adequate anesthesia was administered per the Anesthesia Department. ?A nonsterile tourniquet was placed high on the operative lower extremity. The operative lower extremity was then positioned, prepped and draped in the usual sterile orthopedic fashion. The distal most aspect of the lower extremity was secured in a sterile stockinette with sterile Coban. Final timeout performed. Patient received appropriate preoperative antibiotics. No tourniquet was used during this case given patient had acute DVT to left lower extremity. This case had increased demand with meticulous dissection without tourniquet as well as complexity of resection and flap closure given patient's chronic wounds. Had to reportedly achieve a satisfactory BKA with appropriate flap. Given patient's chronic wounds distally and up to the mid of the tibia they utilize a standard posterior flap that was roughly a whole handbreadth below the tibial tubercle but incision was with a posterior flap. This was able to cut out all bad tissue and into patient's good tissue of the proximal tibia was able to achieve good flaps. I was able to delineated our topographical anatomy, marking out our tibial resection. ?The skin flaps were elucidated with a surgical marker using a 1/3rd anterior-posterior 2/3rd flap. The skin was then incised with a 10-blade scalpel and then Bovie electrocautery was used to dissect the subcutaneous tissue as we delineated the anterior margins of the tibia and fibula. ?Anterolateral soft tissue envelope was clearly evaluated. ?Again, the muscle demonstrated good contractility and good color. Soft tissue envelope was clear no signs of acute infection at this site with no abscess no evidence of osteomyelitis clinically. ?I delineated our peroneal neurovascular bundle and ligated it with 0 silk tie doubled up. ?Once I delineated the anterior cortices of the tibia and fibula, soft tissues were protected with soft tissue retraction and a sagittal saw was used to transect the tibia 3cm proximal to skin, And then the fibula just proximal to that obliquely. ?I then the amputation knife was taken along the posterior cortex of the tibia and the fibula, transecting the soft tissues distally, leaving a nice long posterior flap. ? The specimen was then marked right foot and ankle and sent for pathology and specimen. ? We did debulk the posterior flap just a bit, found the remainder of the neurovascular bundles. ?Again, we even identified the sural nerve posteriorly and the tibial nerve. ?These were injected with 0.5% bupivacaine plain and then placed under traction and transected with 15-blade scalpel prior to allowing them to retract well into the residual stump. ?Again, the additional bundles were ligated with Vicryl knot doubled up. ?We irrigated with copious amounts of normal saline and once again verify adequate hemostasis and good capillary refill distally. ?Again, all of the bundles were ligated appropriately. ?We had excellent hemostasis. His vancomycin powder in the wound bed for antibiotic infection prophylaxis. I then facilitated the primary myodesis anterior to posterior with 0 Vicryl. Then utilized a 0- STRATAFIX and 2-0 STRATAFIX?the skin was then with skin devin. ?A sterile dressing was applied with Xeroform, 4x4s, ABD, soft roll, and an Jermaine wrap. ?Procedure was performed without tourniquet and subsequently doubled the standard time for a standard below the knee amputation as well as given patient's complex wounds of the lower leg required complexity of flap closure and adjustments to accommodate for shorter posterior flap and standard. As a result this was recommended to be coded as a modifier 22 given the complexity of this case given his acute DVT to the operative extremity with acute infection and inability utilize tourniquet. The patient was transferred to Recovery in stable condition. ? Disposition: Patient taken to recovery in stable condition, patient returned to C[facility] postoperatively. Will continue with antibiotics per the primary. Orthopedics will continue to follow on the floor. Patient understands agrees to current plan. All questions answered. Patient will follow-up 2 weeks postop with orthopedics.
--- NOTE | 2025-05-30 12:59 | PM.OP ---
Operative Report Date of procedure: May 30, 2025 Surgeon: Darrian Yun DO
--- NOTE | 2025-05-30 13:03 | PM.PACU ---
PACU note Narrative: Patient is a 59-year-old male who just underwent a left BKA. Patient is awake and alert and pain is controlled. Dressing on left BKA incision site intact and dry. Exam: awake Disposition: back to floor
[2025-05-30] MEDS: fentaNYL 50 mcg/mL INJ 2mL IVP ×2 (13:18→13:23)
--- NOTE | 2025-05-30 13:47 | PC.NURSE ---
PTs leg was placed in the outdoor cooler at 1342
--- NOTE | 2025-05-30 13:59 | ANE.PACU2 ---
Inpatient post-anesthesia follow up: Airway intact: Yes Vital signs: Temperature 98.2 F Pulse Rate 76 Respiratory Rate 17 Blood Pressure 97/62 Pulse Oximetry 95 Oxygen Delivery Me thod Nasal Cannula Oxygen Flow Rate 2 Fraction of Inspir ed Oxygen Hydration adequate: Yes Nausea and vomiting: No Pain level: 2 Mental status: Baseline
--- NOTE | 2025-05-30 17:39 | PM.PN ---
Subjective Subjective: Patient was seen this morning, currently alert oriented x 3, following all commands, seen after his left below-knee amputation, denies any chest pain, no palpitations, no lightheadedness, no dizziness Vitals/I&O/Wt Last Vital Signs Temp 97.0 F L 05/30/25 16:00 Pulse 68 05/30/25 16:32 Resp 25 H 05/30/25 16:32 BP 121/68 05/30/25 16:32 Pulse Ox 95 05/30/25 16:32 O2 Del Method Room Air 05/30/25 16:19 O2 Flow Rate 2 05/30/25 14:00 05/30/25 05/30/25 05/30/25 06:59 14:59 22:59 Intake Total 1000 / 1600 450 / 450 Output Total 600 / 2000 125 / 125 700 / 825 Balance 400 / -400 325 / 325 -700 / -375 Weight last 48 hrs Weight 78.109 kg Weight 77.366 kg Physical Exam Const: COMMON NORMALS: no acute distress and patient oriented x3 Neck/C-Spine: COMMON NORMALS: no JVD Resp: COMMON NORMALS: normal respiratory effort, No retractions, No use of accessory muscles and clear to auscultation bilaterally AUSCULTATION: clear to auscultation bilaterally Cardio: COMMON NORMALS: no JVD, regular rate, regular rhythm, S1 normal heart sound present and S2 normal heart sound present RATE: regular rate RHYTHM: regular rhythm HEART SOUNDS: S1 normal heart sound present and S2 normal heart sound present GI: COMMON NORMALS: Normal to inspection, nondistended, normoactive bowel sounds present and non-tender Extremity: COMMON NORMALS: no pedal edema NARRATIVE EXTREMITY EXAM: Left BKA stump site is currently wrapped Neuro: COMMON NORMALS: patient oriented x3 Psych: COMMON NORMALS: mental status grossly normal Data 05/30/25 02:57 05/30/25 02:57 A&P Assessment and plan 1. Ventricular tachycardia: - Will continue to monitor 2. Defibrillator discharge: - Will continue to monitor - S/p coronary angiography no obstructive CAD 3. Cellulitis: - Left lower extremity cellulitis with chronic osteomyelitis status post IV antibiotics - Status post left below-knee amputation - Will monitor closely postoperatively - Continue linezolid - Continue cefepime for now - Will likely discontinue IV antibiotics after 24 hours 4. Chronic osteomyelitis: - Left lower extremity/foot 5. Heart failure with mildly reduced ejection fraction (HFmrEF): - Monitor for fluid overload 6. Cardiac resynchronization therapy defibrillator (DRIVER/GUIDE-D) in place: - Monitor. 7. Abnormal nuclear cardiac imaging test: - Coronary angiography no obstructive CAD 8. Venous stasis ulcer of right lower extremity: Chronic, with chronic wound on anteromedial right lower extremity. Follows with wound care. 9. Venous stasis ulcer of left lower extremity: Chronic 10. Tobacco use disorder: Active smoking; counseling provided. - Encourage smoking cessation - Provide nicotine replacement patches and lozenges as needed 11. Atrial fibrillation with RVR: - Continue therapeutic Lovenox tonight, will switch to Eliquis on discharge 12. Left leg DVT: Plan: Mild acute kidney injury : Monitor creatinine Alcohol use disorder : Reports reduction in intake to ~2?3 beers/week from prior heavier daily use. Hypertension, labile : Monitor blood pressures Diabetes mellitus type 2 : Low-dose sliding scale Coronary artery disease : Nonobstructive CAD Peripheral vascular disease : US/CV arterial duplex [facility] [address] IMPRESSION: 1. No arterial occlusion. No sign of hemodynamically significant arterial stenosis. 2. Waveforms demonstrate forward flow through diastole throughout the left lower extremity suggesting peripheral vasodilation. Diabetic neuropathy : Reports decreased sensation at bottom of foot; known diabetic neuropathy. Anticoagulation management for atrial fibrillation : - Eliquis on hold -Start therapeutic Lovenox tonight Left lower extremity DVT - Acute DVT of left SFA through popliteal vein - Which happened on Eliquis therapy, but Eliquis therapy was held on 02/20 - Failure of anticoagulant therapy question? - IVC filter in place - Will resume therapeutic Lovenox tonight -True failure of anticoagulant therapy versus stop therapy/noncompliance - Decide if we want to switch to Eliquis versus Xarelto on discharge Close displaced fracture of left clavicle Full code Lovenox for DVT prophylaxis PDMP PDMP Reviewed: Not Reviewed Attestations Medical Necessity Statement*: Patient has hospitalization for left below-knee amputation, left lower extremity DVT, defibrillation of ICD Diagnoses Ventricular tachycardia I47.20 Defibrillator discharge Z45.02 Cellulitis L03.90 Chronic osteomyelitis M86.60 Heart failure with mildly reduced ejection fraction (HFmrEF) I50.20 Cardiac resynchronization therapy defibrillator (DRIVER/GUIDE-D) in place Z95.810 Abnormal nuclear cardiac imaging test R93.1 Venous stasis ulcer of right lower extremity I83.019; L97.919 Venous stasis ulcer of left lower extremity I83.029; L97.929 Tobacco use disorder F17.200 Atrial fibrillation with RVR I48.91 Left leg DVT I82.402
[2025-05-30 18:11] LABS: Hematocrit 37.9 % (37-53); Hemoglobin 11.30 g/dL (11.27-16.99); Mean Corpuscular HGB Conc 29.8 g/dL (30-55); Mean Corpuscular Hemoglobin 25.3 pg (27-33); Mean Corpuscular Volume 85.0 fl (82-101); Nucleated Red Blood Cells % 0 %; Platelet Count 175 10^3/cmm (157-399); Red Blood Count 4.46 10^6/uL (3.85-5.65); White Blood Count 7.22 10^3/uL (3.29-11.43)
[2025-05-30] MEDS: cefepime 1,000 mg SDV 1000 MG IVP (21:00)
[2025-05-30] MEDS: linezolid premix 600 MG/300 ML PREMIX 300 MG IV (21:00)
[2025-05-31] VITALS (11 sets, daily range): BP systolic 119–141; BP diastolic 63–80; PULSE 84–94; RESP 20–31; TEMP 36.4–37.6; O2SAT 90–98
[2025-05-31] MEDS: linezolid premix 600 MG/300 ML PREMIX 300 MG IV (07:59)
[2025-05-31] MEDS: multivitamin therapeutic Tablet 1 TAB PO (08:01)
[2025-05-31] MEDS: morphine 4 mg/mL SDV 1 mL 2 MG IVP (08:01)
[2025-05-31] MEDS: cefepime 1,000 mg SDV 1000 MG IVP (09:20)
[2025-05-31 09:47] LABS: Hematocrit 37.5 % (37-53); Hemoglobin 11.60 g/dL (11.27-16.99); Mean Corpuscular HGB Conc 30.9 g/dL (30-55); Mean Corpuscular Hemoglobin 26.0 pg (27-33); Mean Corpuscular Volume 84.1 fl (82-101); Nucleated Red Blood Cells % 0 %; Platelet Count 201 10^3/cmm (157-399); Red Blood Count 4.46 10^6/uL (3.85-5.65); White Blood Count 8.32 10^3/uL (3.29-11.43)
[2025-05-31 10:03] LABS: Alanine Aminotransferase 24 U/L (0-41); Albumin Level 3.1 g/dL (3.5-5.2); Alkaline Phosphatase 85 U/L (40-130); Anion Gap 16.0 (5-19); Aspartate Amino Transferase 36 U/L (0-40); Blood Urea Nitrogen 6 mg/dL (6-20); Calcium 8.0 mg/dL (8.5-10.5); Carbon Dioxide 20 mmol/L (22-29); Chloride 97 mmol/L (98-107); Creatinine Clr Calc Pharmacy 115.3590; Globulin 3.7 g/dL (1.3-4.6); Glucose 268 mg/dL (65-115); Osmolality Calculated 275 mOsm/kg (285-295); Potassium 4.0 mmol/L (3.5-5.1); Sodium 129 mmol/L (136-145); Total Protein 6.8 g/dL (6.6-8.7)
--- NOTE | 2025-05-31 12:20 | P.PN_ITS ---
Subjective 2 Subjective: Patient seen and examined today, having normal postoperative pain status post left BKA. Hemoglobin stable 11.6 today dressing clean dry intact Vitals/I&O/Wt Last Vital Signs Temp 97.6 F 05/31/25 11:52 Pulse 86 05/31/25 11:52 Resp 28 H 05/31/25 11:52 BP 132/80 05/31/25 11:52 Pulse Ox 98 05/31/25 11:52 O2 Del Method Room Air 05/31/25 11:52 O2 Flow Rate 2 05/30/25 14:00 05/30/25 05/31/25 05/31/25 22:59 06:59 14:59 Intake Total 1140 / 1590 300 / 1890 300 / 300 Output Total 1655 / 1780 675 / 675 Balance -515 / -190 300 / 110 -375 / -375 Weight last 48 hrs Weight 172 lb 3.2 oz Physical Exam 2 Narrative: Left BKA stump dressings on in place clean dry and intact patient is able to flex and extend at the knee. Normal tenderness palpation about the left BKA Data 05/31/25 09:18 05/31/25 09:18 A&P Assessment and plan 1. Status post below-knee amputation of left lower extremity: 2. Chronic osteomyelitis: 3. Chronic ulcer of le. Acute deep vein thrombosis (DVT) of femoral vein of left lower extremity: 5. Venous stasis ulcer of left lower extremity: 6. ICD (implantable cardioverter-defibrillator) in place: 7. Cellulitis: Plan: Labs reviewed Postop day 1 left below the knee amputation Hemoglobin stable 11.6 Change dressing as needed if saturated Internal medicine on board as prior Resume diet Orthopedics will continue to follow Resume anticoagulation for DVT PDMP PDMP Reviewed: Not Reviewed Attestations 2 Medical Necessity Statement*: Per primary patient has hospitalization for left below-knee amputation, left lower extremity DVT, defibrillation of ICD Coding Level of Care Code Acute Code for Chg Fwd Diagnoses Status post below-knee amputation of left lower extremity Z89.512 Chronic osteomyelitis M86.60 Chronic ulcer of leg L97.909 Acute deep vein thrombosis (DVT) of femoral vein of left lower extremity I82.412 Affected thrombotic vein of extremity: femoral DVT location: lower extremity Laterality: left Venous stasis ulcer of left lower extremity I83.029; L97.929 ICD (implantable cardioverter-defibrillator) in place Z95.810 Cellulitis L03.90 Time Spent (min) 10
--- NOTE | 2025-05-31 13:30 | PM.PN ---
Subjective Subjective: Patient was seen and examined, currently alert oriented x 3, following commands, denies any fevers, chills, lightheadedness, dizziness, no chest pain, complains of pain in the left BKA stump site Vitals/I&O/Wt Last Vital Signs Temp 97.6 F 05/31/25 11:52 Pulse 86 05/31/25 11:52 Resp 28 H 05/31/25 11:52 BP 132/80 05/31/25 11:52 Pulse Ox 98 05/31/25 11:52 O2 Del Method Room Air 05/31/25 11:52 O2 Flow Rate 2 05/30/25 14:00 05/30/25 05/31/25 05/31/25 22:59 06:59 14:59 Intake Total 1140 / 1590 300 / 1890 420 / 420 Output Total 1655 / 1780 675 / 675 Balance -515 / -190 300 / 110 -255 / -255 Weight last 48 hrs Weight 78.109 kg Physical Exam Const: COMMON NORMALS: no acute distress and patient oriented x3 Resp: COMMON NORMALS: normal respiratory effort, No retractions, No use of accessory muscles and clear to auscultation bilaterally AUSCULTATION: clear to auscultation bilaterally Cardio: COMMON NORMALS: regular rate, regular rhythm, S1 normal heart sound present and S2 normal heart sound present RATE: regular rate RHYTHM: regular rhythm HEART SOUNDS: S1 normal heart sound present and S2 normal heart sound present GI: COMMON NORMALS: Normal to inspection, nondistended, normoactive bowel sounds present and non-tender Extremity: COMMON NORMALS: no pedal edema NARRATIVE EXTREMITY EXAM: Left BKA stump site, wrapped Neuro: COMMON NORMALS: patient oriented x3 Psych: COMMON NORMALS: mental status grossly normal Data 05/31/25 09:18 05/31/25 09:18 A&P Assessment and plan 1. Ventricular tachycardia: - Will continue to monitor 2. Defibrillator discharge: - Will continue to monitor - S/p coronary angiography no obstructive CAD 3. Cellulitis: - Left lower extremity cellulitis with chronic osteomyelitis - Status post left below-knee amputation postop day 1 - Will monitor closely postoperatively - De-escalate to doxycycline, and ciprofloxacin 4. Chronic osteomyelitis: - Left lower extremity/foot 5. Heart failure with mildly reduced ejection fraction (HFmrEF): - Monitor for fluid overload 6. Cardiac resynchronization therapy defibrillator (MUNITIONS HANDLER-D) in place: - Monitor. 7. Abnormal nuclear cardiac imaging test: - Coronary angiography no obstructive CAD 8. Venous stasis ulcer of right lower extremity: Chronic, with chronic wound on anteromedial right lower extremity. Follows with wound care. 9. Venous stasis ulcer of left lower extremity: Chronic 10. Tobacco use disorder: Active smoking; counseling provided. - Encourage smoking cessation - Provide nicotine replacement patches and lozenges as needed 11. Atrial fibrillation with RVR: - Continue therapeutic Lovenox tonight, will switch to Eliquis on discharge 12. Left leg DVT: Plan: Mild acute kidney injury : Monitor creatinine Alcohol use disorder : Reports reduction in intake to ~2?3 beers/week from prior heavier daily use. Hypertension, labile : Monitor blood pressures Diabetes mellitus type 2 : Low-dose sliding scale Coronary artery disease : Nonobstructive CAD Peripheral vascular disease : US/CV arterial duplex [facility] [id number] IMPRESSION: 1. No arterial occlusion. No sign of hemodynamically significant arterial stenosis. 2. Waveforms demonstrate forward flow through diastole throughout the left lower extremity suggesting peripheral vasodilation. Diabetic neuropathy : Reports decreased sensation at bottom of foot; known diabetic neuropathy. Anticoagulation management for atrial fibrillation : - therapeutic Lovenox, transition to Eliquis Left lower extremity DVT - Acute DVT of left SFA through popliteal vein - Which happened on Eliquis therapy, but Eliquis therapy was held on 02/20 - Failure of anticoagulant therapy is under question - IVC filter in place due to concerns for embolization of left lower extremity DVT with surgery, will have him follow-up with cardiology in 1 month for removal of IVC - Therapeutic Lovenox -True failure of anticoagulant therapy versus stop therapy/noncompliance - Decide if we want to switch to Eliquis versus Xarelto on discharge Close displaced fracture of left clavicle Full code Lovenox for DVT prophylaxis PDMP PDMP Reviewed: Not Reviewed Attestations Medical Necessity Statement*: Patient requires hospitalization for left lower extremity DVT, left below-knee amputation, atrial fibrillation Diagnoses Ventricular tachycardia I47.20 Defibrillator discharge Z45.02 Cellulitis L03.90 Chronic osteomyelitis M86.60 Heart failure with mildly reduced ejection fraction (HFmrEF) I50.20 Cardiac resynchronization therapy defibrillator (MUNITIONS HANDLER-D) in place Z95.810 Abnormal nuclear cardiac imaging test R93.1 Venous stasis ulcer of right lower extremity I83.019; L97.919 Venous stasis ulcer of left lower extremity I83.029; L97.929 Tobacco use disorder F17.200 Atrial fibrillation with RVR I48.91 Left leg DVT I82.402
[2025-05-31 14:44] LABS: Anion Gap 15.1 (5-19); Blood Urea Nitrogen 6 mg/dL (6-20); Calcium 8.2 mg/dL (8.5-10.5); Carbon Dioxide 21 mmol/L (22-29); Chloride 100 mmol/L (98-107); Creatinine Clr Calc Pharmacy 115.3590; Glucose 148 mg/dL (65-115); Osmolality Calculated 274 mOsm/kg (285-295); Potassium 4.1 mmol/L (3.5-5.1); Sodium 132 mmol/L (136-145)
--- NOTE | 2025-05-31 14:47 | CTR_ITS ---
PROCEDURE INFORMATION: Exam: CTA Chest With Contrast Exam date and time: 05/31/2025 4:10 PM Age: 59 years old Clinical indication: Shortness of breath; Additional info: Left le dvt, defibrillation firing, SOB, tachypnea TECHNIQUE: Imaging protocol: Computed tomographic angiography of the chest with contrast. Exam focused on the arteries. 506 image(s) are submitted. 3D rendering (Not supervised by radiologist): MIP and/or 3D reconstructed images were created by the technologist. Radiation optimization: All CT scans at this facility use at least one of these dose optimization techniques: automated exposure control; mA and/or kV adjustment per patient size (includes targeted exams where dose is matched to clinical indication); or iterative reconstruction. Contrast material: OMNIPAQUE 350; Contrast volume: 80 ml; Contrast route: INTRAVENOUS (IV); COMPARISON: CT angio chest PE protcl [id number] 01/30/2025 10:14 AM RADIATION DOSE METRICS: Total DLP (mGy-cm): 371.81 FINDINGS: Pulmonary arteries: No evidence of pulmonary embolism. No gregor evidence of pulmonary arterial hypertension. Bilateral lower lobe dependent atelectasis, slightly more prominent on the right side. No pleural effusion. Aorta: Unremarkable. No aortic aneurysm. No aortic dissection. Lungs: See Pulmonary arteries finding. Pleural spaces: See Pulmonary arteries finding. Heart: See Coronary arteries finding. Coronary arteries: The study is limited due to respiratory motion during the examination. Coronary artery calcification. Normal heart size.Heart: A multiple lead cardiac conduction assist device is present with its leads terminating at the right atrium, right ventricle, and at an epicardial vein via the coronary sinus. Lymph nodes: Unremarkable. No enlarged lymph nodes. Bones/joints: Chronic fracture of distal left clavicle, new since prior study. Soft tissues: Unremarkable. CT/CT angio chest PE protcl [id number] IMPRESSION: No evidence of pulmonary embolism. No gregor evidence of pulmonary arterial hypertension. Bilateral lower lobe dependent atelectasis, slightly more prominent on the right side. No pleural effusion.
[2025-05-31] MEDS: oxyCODONE 5 mg IR Tab/Cap PO ×2 (16:39→20:31)
[2025-06-01] VITALS (9 sets, daily range): BP systolic 106–152; BP diastolic 64–85; PULSE 78–86; RESP 17–24; TEMP 36.4–37.6; O2SAT 92–96
[2025-06-01 05:29] LABS: Hematocrit 35.7 % (37-53); Hemoglobin 11.10 g/dL (11.27-16.99); Mean Corpuscular HGB Conc 31.1 g/dL (30-55); Mean Corpuscular Hemoglobin 25.8 pg (27-33); Mean Corpuscular Volume 83.0 fl (82-101); Nucleated Red Blood Cells % 0 %; Platelet Count 182 10^3/cmm (157-399); Red Blood Count 4.30 10^6/uL (3.85-5.65); White Blood Count 7.63 10^3/uL (3.29-11.43)
[2025-06-01 05:45] LABS: Blood Urea Nitrogen 7 mg/dL (6-20); Calcium 8.3 mg/dL (8.5-10.5); Carbon Dioxide 21 mmol/L (22-29); Chloride 102 mmol/L (98-107); Creatinine Clr Calc Pharmacy 115.5360; Glucose 139 mg/dL (65-115); Osmolality Calculated 278 mOsm/kg (285-295); Sodium 134 mmol/L (136-145)
[2025-06-01 06:01] LABS: Anion Gap 15.2 (5-19); Potassium 4.2 mmol/L (3.5-5.1)
[2025-06-01] MEDS: oxyCODONE 5 mg IR Tab/Cap PO ×4 (06:27→21:15)
[2025-06-01] MEDS: multivitamin therapeutic Tablet 1 TAB PO (07:31)
--- NOTE | 2025-06-01 15:13 | PC.NURSE ---
Patient assisted back to bed x2 assist and walker. Patient tolerated fair. Patient medicated for pain as documented.
--- NOTE | 2025-06-01 15:29 | P.PN_ITS ---
Vitals/I&O/Wt Last Vital Signs Temp 97.6 F 06/01/25 11:13 Pulse 86 06/01/25 11:13 Resp 20 H 06/01/25 15:10 BP 106/65 06/01/25 11:13 Pulse Ox 96 06/01/25 11:13 O2 Del Method Nasal Cannula 06/01/25 03:44 O2 Flow Rate 2 05/30/25 14:00 06/01/25 06/01/25 06/01/25 06:59 14:59 22:59 Intake Total 1240 / 1780 785 / 785 Output Total 1400 / 2675 200 / 200 Balance -160 / -895 585 / 585 Weight last 48 hrs Weight 78.381 kg Physical Exam 2 Const: COMMON NORMALS: no acute distress and patient oriented x3 Resp: COMMON NORMALS: normal respiratory effort, No retractions, No use of accessory muscles and clear to auscultation bilaterally AUSCULTATION: clear to auscultation bilaterally Cardio: COMMON NORMALS: regular rate, regular rhythm, S1 normal heart sound present and S2 normal heart sound present RATE: regular rate RHYTHM: r egular rhythm HEART SOUNDS: S1 normal heart sound present and S2 normal heart sound present GI: COMMON NORMALS: Normal to inspection, nondistended, normoactive bowel sounds present and non-tender Extremity: COMMON NORMALS: no pedal edema Neuro: COMMON NORMALS: patient oriented x3 Psych: COMMON NORMALS: mental status grossly normal Data 06/01/25 04:55 06/01/25 04:55 A&P Assessment and plan 1. Ventricular tachycardia: - Will continue to monitor 2. Defibrillator discharge: - Will continue to monitor - S/p coronary angiography no obstructive CAD 3. Cellulitis: - Left lower extremity cellulitis with chronic osteomyelitis - Status post left below-knee amputation postop day 2 - Will monitor closely postoperatively - De-escalate to doxycycline, and ciprofloxacin 4. Chronic osteomyelitis: - Left lower extremity/foot 5. Heart failure with mildly reduced ejection fraction (HFmrEF): - Monitor for fluid overload 6. 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 7. Abnormal nuclear cardiac imaging test: - Coronary angiography no obstructive CAD 8. Venous stasis ulcer of right lower extremity: Chronic, with chronic wound on anteromedial right lower extremity. Follows with wound care. 9. Venous stasis ulcer of left lower extremity: Chronic 10. Tobacco use disorder: Active smoking; counseling provided. - Encourage smoking cessation - Provide nicotine replacement patches and lozenges as needed 11. Atrial fibrillation with RVR: - will switch to Eliquis 12. Left leg DVT: Plan: Mild acute kidney injury : Monitor creatinine Alcohol use disorder : Reports reduction in intake to ~2?3 beers/week from prior heavier daily use. Hypertension, labile : Monitor blood pressures Diabetes mellitus type 2 : Low-dose sliding scale Coronary artery disease : Nonobstructive CAD Peripheral vascular disease : [place] [id number] IMPRESSION: 1. No arterial occlusion. No sign of hemodynamically significant arterial stenosis. 2. Waveforms demonstrate forward flow through diastole throughout the left lower extremity suggesting peripheral vasodilation. Diabetic neuropathy : Reports decreased sensation at bottom of foot; known diabetic neuropathy. Anticoagulation management for atrial fibrillation : - therapeutic Lovenox, transition to Eliquis Left lower extremity DVT - Acute DVT of left SFA through popliteal vein - Which happened on Eliquis therapy, but Eliquis therapy was held on 02/20 - Failure of anticoagulant therapy is under question - IVC filter in place due to concerns for embolization of left lower extremity DVT with surgery, will have him follow-up with cardiology in 1 month for removal of IVC - Therapeutic Lovenox -True failure of anticoagulant therapy versus stop therapy/noncompliance - will switch to eliquis, discussed risk and benefit with patient, he voiced understanding, all questions answered, agreed to proceed Close displaced fracture of left clavicle Full code Lovenox for DVT prophylaxis PDMP PDMP Reviewed: Not Reviewed Attestations 2 Medical Necessity Statement*: patient requires hospitalization for left lower extremity dvt, left BKA Diagnoses Ventricular tachycardia I47.20 Defibrillator discharge Z45.02 Cellulitis L03.90 Chronic osteomyelitis M86.60 Heart failure with mildly reduced ejection fraction (HFmrEF) I50.20 Cardiac resynchronization therapy defibrillator (ELECTRICAL EXPERIMENTAL MECHANIC-D) in place Z95.810 Abnormal nuclear cardiac imaging test R93.1 Venous stasis ulcer of right lower extremity I83.019; L97.919 Venous stasis ulcer of left lower extremity I83.029; L97.929 Tobacco use disorder F17.200 Atrial fibrillation with RVR I48.91 Left leg DVT I82.402
--- NOTE | 2025-06-01 18:01 | P.PN_ITS ---
Subjective 2 Subjective: Patient seen and examined today no acute issues overnight Vitals/I&O/Wt Last Vital Signs Temp 97.7 F 06/01/25 16:00 Pulse 80 06/01/25 16:00 Resp 17 06/01/25 16:00 BP 152/85 06/01/25 16:00 Pulse Ox 96 06/01/25 16:00 O2 Del Method Nasal Cannula 06/01/25 03:44 O2 Flow Rate 2 05/30/25 14:00 06/01/25 06/01/25 06/01/25 06:59 14:59 22:59 Intake Total 1240 / 1780 785 / 785 Output Total 1400 / 2675 200 / 200 Balance -160 / -895 585 / 585 Weight last 48 hrs Weight 172 lb 12.8 oz Physical Exam 2 Narrative: Left BKA stump dressings on in place clean dry and intact patient is able to flex and extend at the knee. Normal tenderness palpation about the left BKA Data 06/01/25 04:55 06/01/25 04:55 A&P Assessment and plan 1. Status post below-knee amputation of left lower extremity: 2. Chronic osteomyelitis: 3. Chronic ulcer of le. Acute deep vein thrombosis (DVT) of femoral vein of left lower extremity: 5. Venous stasis ulcer of left lower extremity: 6. ICD (implantable cardioverter-defibrillator) in place: 7. Cellulitis: Plan: Labs reviewed Postop day 2 left below the knee amputation Change dressing as needed if saturated Internal medicine on board as prior Resume diet Resume anticoagulation for DVT Stable for discharge from orthopedic standpoint orthopedic surgery team will sign off patient at this time follow peripherally. If there is any question pertaining to patient's care feel free to contact orthopedics on-call. When appropriate discharge instructions as well as recommended follow-up with 2 weeks with patient. All questions answered at this time. PDMP PDMP Reviewed: Not Reviewed Attestations 2 Medical Necessity Statement*: Per primary Coding Level of Care Code Acute Code for Chg Fwd Diagnoses Status post below-knee amputation of left lower extremity Z89.512 Chronic osteomyelitis M86.60 Chronic ulcer of leg L97.909 Acute deep vein thrombosis (DVT) of femoral vein of left lower extremity I82.412 Affected thrombotic vein of extremity: femoral DVT location: lower extremity Laterality: left Venous stasis ulcer of left lower extremity I83.029; L97.929 ICD (implantable cardioverter-defibrillator) in place Z95.810 Cellulitis L03.90 Time Spent (min) 10
[2025-06-02] VITALS: BP 111/65; PULSE 77; RESP 28; TEMP 36.8; O2SAT 96
[2025-06-02 03:24] VITALS: BP 101/55; PULSE 75; RESP 16; O2SAT 97
[2025-06-02 03:51] LABS: Hematocrit 34.2 % (37-53); Hemoglobin 10.70 g/dL (11.27-16.99); Mean Corpuscular HGB Conc 31.3 g/dL (30-55); Mean Corpuscular Hemoglobin 25.8 pg (27-33); Mean Corpuscular Volume 82.6 fl (82-101); Nucleated Red Blood Cells % 0 %; Platelet Count 199 10^3/cmm (157-399); Red Blood Count 4.14 10^6/uL (3.85-5.65); White Blood Count 7.42 10^3/uL (3.29-11.43)
[2025-06-02 04:14] LABS: Anion Gap 15.1 (5-19); Blood Urea Nitrogen 8 mg/dL (6-20); Calcium 8.3 mg/dL (8.5-10.5); Carbon Dioxide 23 mmol/L (22-29); Chloride 100 mmol/L (98-107); Creatinine Clr Calc Pharmacy 115.3590; Glucose 121 mg/dL (65-115); Osmolality Calculated 278 mOsm/kg (285-295); Potassium 4.1 mmol/L (3.5-5.1); Sodium 134 mmol/L (136-145)
[2025-06-02 06:50] VITALS: RESP 18
[2025-06-02] MEDS: oxyCODONE 5 mg IR Tab/Cap PO (06:50)
[2025-06-02 07:48] VITALS: BP 129/73; PULSE 81; RESP 18; TEMP 36.6; O2SAT 97
[2025-06-02] MEDS: multivitamin therapeutic Tablet 1 TAB PO (08:05)
--- NOTE | 2025-06-02 10:22 | PM.DCS ---
Discharge Providers Date of Admission: 05/26/25 14:11 Date of Discharge: June 02, 2025 Attending Provider at Admission: Vin Kelsey Attending Provider at Discharge: Davey Chaney MD Primary Care Provider: Oliver Dempsey MD Diagnoses at Discharge Discharge Diagnosis 1. Ventricular tachycardia: 2. Defibrillator discharge: 3. Chronic osteomyelitis: 4. Heart failure with mildly reduced ejection fraction (HFmrEF): 5. Cardiac resynchronization therapy defibrillator (CARGO INSPECTOR-D) in place: 6. Abnormal nuclear cardiac imaging test: 7. Venous stasis ulcer of right lower extremity: 8. Venous stasis ulcer of left lower extremity: 9. Tobacco use disorder: 10. Atrial fibrillation with RVR: Reason for Visit Reason for Visit: Afib RVR, Hospital Course Hospital Course This is a 59-year-old male with a past medical history of CHF, type 2 diabetes, atrial fibrillation, hypertension, peripheral vascular disease, diabetic neuropathy, alcohol use disorder, CAD, prior AICD, who presents [facility] for concerns for 6 AICD shocks this morning Patient presented to [facility] for defibrillator discharge, CT angiogram of chest no pulmonary emboli, coronary angiography no obstructive CAD, discharged with close follow-up with cardiology as outpatient Patient's hospitalization was complicated by left lower extremity cellulitis chronic osteomyelitis left lower extremity/foot, initial medical management IV antibiotics, after orthopedic consultation patient underwent a left BKA, tolerated procedure well, discharged to correction facility. Will be discharged on oral antibiotic therapy. Patient was found to have a left lower extremity DVT, left SFA through popliteal vein, while on Eliquis, IVC filter was placed due to concern for elevation of left lower extremity dVT with his left BKA, underwent IVC filter placement, managed with anticoagulant therapy with - Plan is to remove IVC filter in 1 month, follow-up with cardiology as outpatient - I had a detailed discussion with patient about true failure of anticoagulant therapy Eliquis versus stop therapy/noncompliance - After detailed discussion with patient it was favored that his breakthrough DVT on Eliquis was likely from him stopping it for his close displaced fracture of the left clavicle - After discussing recent benefits of anticoagulant therapy, And voiced understanding, all questions are, shared decision making agreed to proceed with Eliquis therapy - Will have him follow-up with hematology as outpatient - Continue Eliquis 5 mg twice daily, follow-up with cardiology, follow-up with primary care Physical Exam Const: COMMON NORMALS: no acute distress and patient oriented x3 Resp: COMMON NORMALS: normal respiratory effort, No retractions, No use of accessory muscles and clear to auscultation bilaterally AUSCULTATION: clear to auscultation bilaterally Cardio: COMMON NORMALS: regular rate, regular rhythm, S1 normal heart sound present and S2 normal heart sound present RATE: regular rate RHYTHM: regular rhythm HEART SOUNDS: S1 normal heart sound present and S2 normal heart sound present GI: COMMON NORMALS: Normal to inspection, nondistended, normoactive bowel sounds present and non-tender Extremity: COMMON NORMALS: no pedal edema NARRATIVE EXTREMITY EXAM: BKA stump site looks clean and dry on the left side Neuro: COMMON NORMALS: patient oriented x3 Psych: COMMON NORMALS: mental status grossly normal Discharge Data Studies Completed and Pending Completed Studies During Hospitalization Category Date Time Status CT angio chest PE protcl [id number] Routine Cat Scan 05/31/25 14:[address] lower leg LT w con [id number] Routine Cat Scan 05/27/25 17:01 Completed XR chest 1V portable [id number] Stat Exams 05/26/25 07:23 [place] [id number] Routine Ultrasound 05/28/25 10:26 [place] [id number] Routine Ultrasound 05/26/25 10:28 Completed CV. echo limited 13079 Routine Ultrasound 05/26/25 10:31 Completed Pending at discharge Category Date Time Status RODENT EXTERMINATOR request for service Routine Exams 05/29/25 08:30 Taken Basic Metabolic Panel AM LABS Lab 06/03/25 04:00 Ordered Blood Culture Stat Lab 05/28/25 11:22 Results Complete Blood Count w/Auto AM LABS Lab 06/03/25 04:00 Ordered Type and Screen Routine Lab 05/30/25 09:29 Uncollected Pathology: Surgical [PTH] Routine Pth 05/30/25 12:04 Ordered Radiology Impressions Chest X-Ray 05/26/25 07:23 IMPRESSION: No acute cardiopulmonary abnormalities. No pneumonia. Lower Extremity CT 05/27/25 17:01 IMPRESSION: 1. Chronic diffuse edema throughout the visualized lower extremity characterized by skin thickening and fat stranding. The differential diagnosis includes chronic cellulitis and chronic venous stasis. 2. Extensive periosteal reaction in the fibula and involving portions of the tibia as before. Differential diagnosis includes chronic osteomyelitis as noted previously. 3. Redemonstration of numerous venous varicosities in the visualized lower extremity. Duplex Scan Lower Extremity Artery 05/28/25 10:26 IMPRESSION: 1. No arterial occlusion. No sign of hemodynamically significant arterial stenosis. 2. Waveforms demonstrate forward flow through diastole throughout the left lower extremity suggesting peripheral vasodilation. Chest CTA 05/31/25 14:47 IMPRESSION: No evidence of pulmonary embolism. No gregor evidence of pulmonary arterial hypertension. Bilateral lower lobe dependent atelectasis, slightly more prominent on the right side. No pleural effusion. Laboratory Results WBC 7.42 10^3/uL (3.29-11.43) 06/02/25 02:57 RBC 4.14 10^6/uL (3.85-5.65) 06/02/25 02:57 Hgb 10.70 g/dL (11.27-16.99) L 06/02/25 02:57 Hct 34.2 % (37-53) L 06/02/25 02:57 MCV 82.6 fl (82-101) 06/02/25 02:57 MCH 25.8 pg (27-33) L 06/02/25 02:57 MCHC 31.3 g/dL (30-55) 06/02/25 02:57 RDW 14.9 % (12.1-15.1) 06/02/25 02:57 Plt Count 199 10^3/cmm (157-399) 06/02/25 02:57 MPV 10.5 fL (7.4-10.4) H 06/02/25 02:57 Neut % (Auto) 73.8 % 06/02/25 02:57 Lymph % (Auto) 15.2 % 06/02/25 02:57 [place] % (Auto) 8.5 % 06/02/25 02:57 Eos % (Auto) 1.8 % 06/02/25 02:57 Baso % (Auto) 0.3 % 06/02/25 02:57 Neut # (Auto) 5.48 10^3/uL (1.8-7.7) 06/02/25 02:57 Lymph # (Auto) 1.1 10^3/uL (0.8-4.8) 06/02/25 02:57 Canadian # (Auto) 0.6 10^3/uL (0.2-0.9) 06/02/25 02:57 Eos # (Auto) 0.1 10^3/uL (0.0-0.8) 06/02/25 02:57 Baso # (Auto) 0.0 10^3/uL (0.0-0.1) 06/02/25 02:57 Nucleated RBC % (auto) 0 % 06/02/25 02:57 Nucleated RBCs # 0.0 /100WBC 06/02/25 02:57 PT 14.90 SECONDS (12.1-14.9) 05/26/25 07:45 INR 1.09 (0.8-1.2) 05/26/25 07:45 Sodium 134 mmol/L (136-145) L 06/02/25 02:57 Potassium 4.1 mmol/L (3.5-5.1) 06/02/25 02:57 Chloride 100 mmol/L (98-107) 06/02/25 02:57 Carbon Dioxide 23 mmol/L (22-29) 06/02/25 02:57 Anion Gap 15.1 (5-19) 06/02/25 02:57 BUN 8 mg/dL (6-20) 06/02/25 02:57 Creatinine 0.7 mg/dL (0.7-1.2) 06/02/25 02:57 GFR Calculation 115.8 mL/min (90-130) 06/02/25 02:57 Glucose 121 mg/dL (65-115) H 06/02/25 02:57 POC Glucose 141 mg/dL (70-110) H 06/02/25 06:35 Calculated Osmolality 278 mOsm/kg (285-295) L 06/02/25 02:57 Calcium 8.3 mg/dL (8.5-10.5) L 06/02/25 02:57 Magnesium 2.0 mg/dL (1.7-2.3) 05/27/25 04:01 Total Bilirubin 0.4 mg/dL (0.15-1.2) 05/31/25 09:18 AST 36 U/L (0-40) 05/31/25 09:18 ALT 24 U/L (0-41) 05/31/25 09:18 Alkaline Phosphatase 85 U/L (40-130) 05/31/25 09:18 Troponin T Baseline 27 ng/L (0-15) H 05/26/25 07:45 Troponin T 120 Minute 39.73 ng/L (0-15) H 05/26/25 09:54 Delta Troponin T 12.73 ABS# (0-10) H* 05/26/25 09:54 Troponin T Hi Sens 6Hr 47.51 ng/L (0-15) H 05/26/25 14:01 Troponin T Hi Sens 6Hr Delta 20.51 ng/L (0-12) H* 05/26/25 14:01 NT-Pro-B Natriuret Pep 327 pg/mL (0-125) H 05/26/25 07:45 Total Protein 6.8 g/dL (6.6-8.7) 05/31/25 09:18 Albumin 3.1 g/dL (3.5-5.2) L 05/31/25 09:18 Globulin 3.7 g/dL (1.3-4.6) 05/31/25 09:18 TSH 3.19 uIU/mL (0.27-4.20) 05/26/25 07:45 Nasal MRSA (PCR) Mrsa detected (Negative) A 05/28/25 08:45 Blood Type A Positive 05/30/25 09:54 Rho(D) Type Rh positive 05/30/25 09:54 Antibody Screen Negative 05/30/25 09:54 Vitals Last Vital Signs Temp 97.8 F 06/02/25 07:48 Pulse 81 06/02/25 07:48 Resp 18 06/02/25 07:48 BP 129/73 06/02/25 07:48 Pulse Ox 97 06/02/25 07:48 O2 Del Method Nasal Cannula 06/02/25 03:24 O2 Flow Rate 2 05/30/25 14:00 Discharge Plan Discharge Patient Disposition: Xfer Inpatient Rehab Fac Condition: Stable Prescriptions: New amiodarone [Pacerone] 200 mg Tablet See Rx Instructions .ROUTE .COMPLEX 30 Days Qty: 60 0RF Rx Instructions: 1 tab twice daily for 3 days, followed by 1 tab daily ciprofloxacin HCl 500 mg Tablet 500 mg PO BID@0900,2100 5 Days Qty: 10 0RF doxycycline monohydrate 100 mg Tablet 100 mg PO BID 5 Days Qty: 10 0RF nitroglycerin 0.4 mg Tablet, Sublingual 0.4 mg sublingual Q5M PRN (Reason: Chest Pain) 30 Days Qty: 30 0RF insulin lispro [Humalog U-100 Insulin] 100 unit/mL Solution See Rx Instructions .ROUTE .COMPLEX Qty: 10 0RF Rx Instructions: Inject, subcut, 3 times daily, after meals, based on low-dose sliding scale oxycodone 5 mg tablet 5 mg PO Q6H PRN (Reason: pain) 5 Days Qty: 20 0RF Continued acetaminophen [Tylenol] 325 mg tablet 650 mg PO QID PRN (Reason: Pain) Eliquis 5 mg tablet 5 mg PO BID Qty: 180 1RF aspirin 81 mg tablet,delayed release (DR/EC) 81 mg PO DAILY Qty: 90 1RF Jardiance 10 mg tablet 10 mg PO DAILY Qty: 90 1RF spironolactone 25 mg tablet 12.5 mg PO DAILY Qty: 90 1RF thiamine HCl (vitamin B1) 100 mg tablet 100 mg PO DAILY Qty: 90 1RF folic acid 1 mg Tablet 1 mg PO DAILY Qty: 30 0RF multivitamin with folic acid [Thera] 400 mcg Tablet 1 tab PO DAILY Qty: 30 0RF Changed metoprolol succinate 100 mg tablet extended release 24 hr 25 mg PO DAILY Qty: 90 1RF Discontinued potassium chloride 20 mEq tablet extended release 20 meq PO BID Qty: 180 1RF Entresto 49-51 mg tablet 1 tab PO BID Qty: 90 1RF isosorbide mononitrate 30 mg tablet extended release 24 hr 30 mg PO DAILY Qty: 30 0RF Porcelain Mixer OK for DC: Orthopedics Discharge Order = DC NOW: Discharge Order (Routine); Ordered 06/02/25 Ordered By: Davey Chaney Referrals: Juliane Lang FNP [Nurse Practitioner, Cardiology] - 1-3 days Darrian Yun DO [Physician, Orthopedics] Oliver Dempsey MD [Primary Care Provider, Family Practice] Garry Sky MD [Hospitalist, Oncology] - 2 weeks Referral Note: dvt on eliquis Discharge Diet: Regular Discharge Activity: Limit activity as instructed Patient Instructions: Opioid Safety, Patient Portal & Annie Instructions Activity Restrictions/Additional Instructions: Discharge instructions Leave dressing on dry and intact Change dressing as needed or if becomes saturated Nonweightbearing on operative lower extremity No baths or soaks. Do not submerge stump in any bodies of water. Use crutches to help with ambulation. Elevation and ice as needed for pain and swelling Take pain medication as prescribed Take antinausea medication as needed Take antibiotic as prescribed May supplement with [id number] anti-inflammatories (make sure not to take more than 3000 mg of Tylenol in 1 day as your pain medication does have Tylenol in it) Follow-up in the orthopedic office in 2 weeks Contact the office for any questions or concerns - Please follow-up with Dr. Hicks in 1 month for removal of IVC filter - Please take antibiotics as prescribed - Follow-up with orthopedic service - Please take Eliquis as prescribed Discharge Attestations Time Spent in Discharge Care*: greater than 30 min Status at Discharge: Cognitive status at discharge: cognitively intact, Behavioral status at discharge: cooperative, Quality Metrics Clinical Quality Measures [ No reported AMI, CVA or VTE this stay] Coding Level of Care Code 33443 Total time (in minutes) for Discharge: 45 Diagnoses Ventricular tachycardia I47.20 Defibrillator discharge Z45.02 Cellulitis L03.90 Chronic osteomyelitis M86.60 Heart failure with mildly reduced ejection fraction (HFmrEF) I50.22 Cardiac resynchronization therapy defibrillator (CARGO INSPECTOR-D) in place Z95.810 Abnormal nuclear cardiac imaging test R93.1 Venous stasis ulcer of right lower extremity I83.019; L97.919 Venous stasis ulcer of left lower extremity I83.029; L97.929 Tobacco use disorder F17.200 Atrial fibrillation with RVR I48.91
--- NOTE | 2025-06-02 12:01 | PC.NURSE ---
Patient discharged to [facility]. Report called to Susan Queen RN. Patient taken by Omid Moran to [place].
[2025-06-02 12:02] VITALS: BP 133/73; PULSE 16; O2SAT 89
== END 2025-06-02 12:05 | DRG 240 ==
LOC: ER 13:44 → ER IP 14:11 → CSU 16:07
PROVIDERS: Internal Medicine; Nurse Practitioner Family; Student in an Organized Health Care Education/Training Program; Admitting Provider Internal Medicine; Emergency Provider Emergency Medicine; PCP Family Medicine; Visit Provider Family Medicine
PROC: B211YZZ Fluoroscopy of Multiple Coronary Arteries using Other Contrast (ICD-10-PCS; principal; 2025-05-29 08:30)
PROC: B211YZZ Fluoroscopy of Multiple Coronary Arteries using Other Contrast (ICD-10-PCS; CPT 37191; 2025-05-29 08:30)
PROC: 0Y6J0Z2 Detachment at Left Lower Leg, Mid, Open Approach (ICD-10-PCS; CPT 27880; principal; 2025-05-30 09:00)
DX: I83.028 Varicose veins of left lower extremity with ulcer other part of lower leg (principal); I47.20 Ventricular tachycardia, unspecified; M86.672 Other chronic osteomyelitis, left ankle and foot; L97.819 Non-pressure chronic ulcer of other part of right lower leg with unspecified severity; L97.829 Non-pressure chronic ulcer of other part of left lower leg with unspecified severity; I50.20 Unspecified systolic (congestive) heart failure; L03.116 Cellulitis of left lower limb; I82.412 Acute embolism and thrombosis of left femoral vein; I82.432 Acute embolism and thrombosis of left popliteal vein; N17.9 Acute kidney failure, unspecified; I83.018 Varicose veins of right lower extremity with ulcer other part of lower leg; I11.0 Hypertensive heart disease with heart failure; I48.91 Unspecified atrial fibrillation; I25.10 Atherosclerotic heart disease of native coronary artery without angina pectoris; E11.51 Type 2 diabetes mellitus with diabetic peripheral angiopathy without gangrene; E11.40 Type 2 diabetes mellitus with diabetic neuropathy, unspecified; Z79.84 Long term (current) use of oral hypoglycemic drugs; F17.210 Nicotine dependence, cigarettes, uncomplicated; E87.6 Hypokalemia; I25.9 Chronic ischemic heart disease, unspecified; Z95.810 Presence of automatic (implantable) cardiac defibrillator; Z79.01 Long term (current) use of anticoagulants; I25.2 Old myocardial infarction; Z79.82 Long term (current) use of aspirin
CPT/HCPCS: 36010; 36415; 36416; 37191; 71045; 71275; 73701; 80048; 80053; 82962; 83735; 83880; 84443; 84484; 85025; 85610; 86850; 86900; 87040; 87070; 87075; 87077; 87186; 87205; 88307; 88311; 93005; 93308; 93454; 93926; 93971; 96365; 96366; 96367; 96372; 97161; 97167; 97530; 99152; 99153; 99291; A4222; C1760; C1769; C1880; C1887; C1894; G0269; J0282; J0283; J0690; J0692; J1171; J1200; J1644; J1650; J1815; J2020; J2250; J2270; J2405; J2704; J2710; J3010; J3373; J3490; J7030; J7040; J9999; Q0163; Q9967

== ENCOUNTER → 2025-06-18 13:52 | Outpatient (BNVA) | payer MEDICAID, SELFPAY | PROVIDERS: PCP Family Medicine; Visit Provider Thoracic Surgery (Cardiothoracic Vascular Surgery) | DX: I96 Gangrene, not elsewhere classified (principal); I87.2 Venous insufficiency (chronic) (peripheral); L97.811 Non-pressure chronic ulcer of other part of right lower leg limited to breakdown of skin; L97.821 Non-pressure chronic ulcer of other part of left lower leg limited to breakdown of skin | CPT/HCPCS: 97597; A6210; A6252 ==

== ENCOUNTER 2025-06-23 19:56 | Emergency (ER) | payer MEDICAID, SELFPAY ==
[2025-06-23 20:01] VITALS: BP 157/90; PULSE 76; RESP 18; TEMP 36.7; O2SAT 97; BMI 27.3
--- NOTE | 2025-06-23 20:09 | ECG_ITS ---
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 Measurements Intervals [place] Rate: 74 P: 70 TN: 87 QRS: 193 QRSD: 165 T: 25 QT: 457 QTc: 507 Interpretive Statements ELECTRONIC VENTRICULAR PACEMAKER Compared to ECG 05/26/2025 14:21:00 No significant changes Electronically Signed On 06-25-2025 08:37:59 CDT by Ismael Sue M.D. [id number]
--- NOTE | 2025-06-23 20:53 | XRR_ITS ---
PROCEDURE INFORMATION: Exam: XR Left Clavicle, Complete Exam date and time: 06/23/2025 9:14 PM Age: 59 years old Clinical indication: Pain; Prior surgery; Surgery date: 1-6 months; Surgery type: Lt clavicle TECHNIQUE: Imaging protocol: Radiologic exam of the left clavicle. Complete exam. Views: Any number of views. COMPARISON: [place] [id number] 05/14/2025 11:02 AM FINDINGS: Bones/joints: Stable superior plate and screw fixation of the left clavicle. No identified fracture or dislocation. Acromioclavicular and glenohumeral joint spaces maintained. Soft tissues: Normal. Other findings: Partially imaged left chest pacemaker. XR/[place] [id number] IMPRESSION: Stable superior plate and screw fixation of the left clavicle. No identified hardware complication or acute osseous abnormality.
[2025-06-23] MEDS: morphine 4 mg/mL SDV 1 mL 6 MG IVP (21:03)
[2025-06-23 21:37] LABS: Hematocrit 41.7 % (37-53); Hemoglobin 13.20 g/dL (11.27-16.99); Mean Corpuscular HGB Conc 31.7 g/dL (30-55); Mean Corpuscular Hemoglobin 26.0 pg (27-33); Mean Corpuscular Volume 82.1 fl (82-101); Nucleated Red Blood Cells % 0 %; Platelet Count 155 10^3/cmm (157-399); Red Blood Count 5.08 10^6/uL (3.85-5.65); White Blood Count 7.71 10^3/uL (3.29-11.43)
[2025-06-23 21:47] VITALS: BP 132/77; PULSE 69; RESP 18; O2SAT 93
[2025-06-23 21:53] LABS: Alanine Aminotransferase 21 U/L (0-41); Albumin Level 3.9 g/dL (3.5-5.2); Alkaline Phosphatase 128 U/L (40-130); Anion Gap 13.9 (5-19); Aspartate Amino Transferase 17 U/L (0-40); Blood Urea Nitrogen 12 mg/dL (6-20); Calcium 9.0 mg/dL (8.5-10.5); Carbon Dioxide 22 mmol/L (22-29); Chloride 105 mmol/L (98-107); Creatinine Clr Calc Pharmacy 101.6623; Globulin 4.3 g/dL (1.3-4.6); Glucose 125 mg/dL (65-115); Osmolality Calculated 285 mOsm/kg (285-295); Potassium 3.9 mmol/L (3.5-5.1); Sodium 137 mmol/L (136-145); Total Protein 8.2 g/dL (6.6-8.7)
--- NOTE | 2025-06-23 22:58 | W.ED.EXTPRO ---
HPI - Extremity Problem General: Chief complaint: Extremity Problem,Nontraumatic Stated complaint: Left Shoulder Pain Time Seen by Provider: 06/23/25 20:23 History of Present Illness: 51 yo M with pacemaker and recent left below-knee amputation presents with left shoulder/clavicle pain starting earlier today. He reports prior left clavicle fracture at the end of January, denies new trauma. Pain sometimes radiates to chest; states the pacemaker feels bothered. Also notes intermittent chest pain and occasional dysphagia. He is wheelchair-bound due to the recent left leg BKA; devin were removed today, and he follows wound care twice weekly. He ran out of postoperative pain medication this morning and was told a new Rx may be sent to pharmacy. ROS: denies recent trauma; endorses left clavicle pain, intermittent chest pain, occasional trouble swallowing. Related Data Home Medications ?Medication ?Instructions ?Recorded ?Confirmed acetaminophen 325 mg tablet 650 mg PO QID PRN Pain 01/07/25 06/23/25 (Tylenol) Previous Rx's ?Medication ?Instructions ?Recorded apixaban 5 mg tablet (Eliquis) 5 mg PO BID #180 tabs 01/07/25 aspirin 81 mg tablet,delayed 81 mg PO DAILY #90 tabs 01/07/25 release empagliflozin 10 mg tablet 10 mg PO DAILY #90 tabs 01/07/25 (Jardiance) spironolactone 25 mg tablet 12.5 mg (1/2 x 25 mg) PO DAILY #90 01/07/25 tabs thiamine HCl (vitamin B1) 100 mg 100 mg PO DAILY #90 tabs 01/08/25 tablet folic acid 1 mg tablet 1 mg PO DAILY #30 tabs 02/01/25 multivitamin with folic acid 400 1 tab PO DAILY #30 tabs 02/01/25 mcg tablet (Thera) amiodarone 200 mg tablet (Pacerone) See Rx Instructions .Route 06/02/25 .COMPLEX 30 days #60 tabs insulin lispro 100 unit/mL See Rx Instructions .Route 06/02/25 subcutaneous solution (Humalog .COMPLEX #10 mL U-100 Insulin) metoprolol succinate 100 mg 25 mg (1/4 x 100 mg) PO DAILY #90 06/02/25 tablet,extended release 24 hr tabs nitroglycerin 0.4 mg sublingual 0.4 mg sublingual Q5M PRN Chest 06/02/25 tablet Pain 30 days #30 tabs oxycodone-acetaminophen 5 mg-325 1 tab PO BID PRN pain #10 tabs 06/23/25 mg tablet (Percocet) Allergies Allergy/AdvReac Type Severity Reaction Status Date / Time No Known Allergies Allergy Verified 06/23/25 20:10 [facility] ED PFSH: Medical History (Updated 06/23/25 @ 22:07 by Juan Tobar MD) Tobacco use disorder Heart failure with mildly reduced ejection fraction (HFmrEF) Elevated blood pressure reading with diagnosis of hypertension Alcoholism with alcohol dependence Diabetes type 2, controlled Neuropathy History of non-ST elevation myocardial infarction (NSTEMI) Peripheral vascular disease Chronic atrial fibrillation Primary hypertension CHF (congestive heart failure) LVEF 64% 01/30/2025 Surgical History Hx of umbilical hernia repair 07/05/23 lap repair of umbilical hernia with mesh- Dr Obrien History of implantable cardioverter-defibrillator (ICD) placement Family History Mother CAD (coronary artery disease) Social History Smoking and tobacco/nicotine status: current every day tobacco/nicotine user cigarettes [ Other cigarette details: 1.5 pack per day x 40 years, currently down to 3-4 cig/day] Alcohol intake: current Alcohol intake frequency: 3 or more drinks per day Alcohol type: beer Substance/Drug Use: former Date of last use: marijuana in 2021 Household members: children Marital status: Single Number of children: 2 Number of grandchildren: 0 Current occupational status: disabled Special duc needs: No Agree to transfusion: Yes Physical Exam Const: COMMON NORMALS: no acute distress, patient oriented x3 and alert HENMT: COMMON NORMALS: normocephalic and atraumatic HEAD & SCALP: normocephalic and atraumatic Eye: COMMON NORMALS: Equal, round and reactive pupils present, EOMs intact bilaterally and no scleral icterus PUPIL: Yes Equal, round and reactive pupils present Chest: OTHER: Pain with palpation over the left clavicle. Resp: COMMON NORMALS: normal respiratory effort and No retractions Cardio: COMMON NORMALS: regular rate, regular rhythm and No murmurs present (Cardio) RATE: regular rate RHYTHM: regular rhythm GI: COMMON NORMALS: Normal to inspection, nondistended, normoactive bowel sounds present, Soft to palpation and non-tender PALPATION: Yes Soft to palpation Extremity: OTHER: Left BKA with dressing in place. Dressing not removed as just seen earlier today and devin removed and patient was not told there was any trouble. Neuro: COMMON NORMALS: patient oriented x3 SENSORIUM/ORIENTATION: Yes alert Skin: COMMON NORMALS: no rashes or lesions noted GENERAL SKIN EXAM: no rashes or lesions noted Course Vital Signs: Vital signs: Vital Signs Temperature 98.1 F 06/23/25 20:01 Pulse Rate 69 06/23/25 21:47 Respiratory Rate 18 06/23/25 21:47 Blood Pressure 132/77 06/23/25 21:47 Pulse Oximetry 93 06/23/25 21:47 Oxygen Delivery Me thod Nasal Cannula 06/23/25 21:47 MDM - Extremity (Nontraumatic) Medical Decision Making 51 yo M with pacemaker and recent L BKA presents with new L clavicle/shoulder pain since today, intermittent chest pain, and reports increased pain after running out of analgesics. [Pertinent Vital Signs Not Available] PE: lungs clear, heart regular; L clavicle TTP with old stable deformity; L BKA with dressing intact. EKG (20:04): electronically paced rhythm, ventricularly paced, rate 74, negative Sgarbossa, no T-wave inversions, QRS follows pacer spikes, QTc 484. I suspect heightened pain perception due to cessation of pain meds; possible clavicle re-injury considered given focal tenderness, though no new trauma reported. Ordered L clavicle X-ray and basic labs; IV analgesia given; will verify if outpatient pain Rx is available. Anticipate discharge if studies and clinical status are reassuring. EKG, chest x-ray, labs are unremarkable. I strongly suspect opioid induced hyperalgesia. I discussed with the patient and told him that long-term use of narcotics can lead to situations like this where pains which previously flared to the right are not become significant enough to come to the emergency department. He will be given a very short course of Percocet and instructions to follow-up with primary care and other physicians to see how they would like to address his chronic pain needs. Lab Data 06/23/25 21:30 06/23/25 21:30 Radiology Impressions Clavicle X-Ray 06/23/25 20:53 IMPRESSION: Stable superior plate and screw fixation of the left clavicle. No identified hardware complication or acute osseous abnormality. Laboratory Results WBC 7.71 10^3/uL (3.29-11.43) 06/23/25 21:30 Corrected WBC Cancelled 06/23/25 20:44 RBC 5.08 10^6/uL (3.85-5.65) 06/23/25 21:30 Hgb 13.20 g/dL (11.27-16.99) 06/23/25 21: Hct 41.7 % (37-53) 06/23/25 21: MCV 82.1 fl (82-101) 06/23/25 21: MCH 26.0 pg (27-33) L 06/23/25 21: MCHC 31.7 g/dL (30-55) 06/23/25 21: RDW 15.8 % (12.1-15.1) H 06/23/25 21:30 Plt Count 155 10^3/cmm (157-399) L 06/23/25 21: MPV 10.0 fL (7.4-10.4) 06/23/25 21:30 Gran % Cancelled 06/23/25 20:44 Neut % (Auto) 63.5 % 06/23/25 21:30 Lymph % (Auto) 27.1 % 06/23/25 21:30 Wetzel % (Auto) 6.7 % 06/23/25 21: Eos % (Auto) 2.2 % 06/23/25 21:30 Baso % (Auto) 0.4 % 06/23/25 21:30 Neut # (Auto) 4.89 10^3/uL (1.8-7.7) 06/23/25 21: Lymph # (Auto) 2.1 10^3/uL (0.8-4.8) 06/23/25 21:30 Wetzel # (Auto) 0.5 10^3/uL (0.2-0.9) 06/23/25 21:30 Eos # (Auto) 0.2 10^3/uL (0.0-0.8) 06/23/25 21:30 Baso # (Auto) 0.0 10^3/uL (0.0-0.1) 06/23/25 21:30 Absolute Gran (auto) Cancelled 06/23/25 20:44 Nucleated RBC % (auto) 0 % 06/23/25 21: Nucleated RBCs # 0.0 /100WBC 06/23/25 21:30 Sodium 137 mmol/L (136-145) 06/23/25 21: Potassium 3.9 mmol/L (3.5-5.1) 06/23/25 21: Chloride 105 mmol/L (98-107) 06/23/25 21: Carbon Dioxide 22 mmol/L (22-29) 06/23/25: Anion Gap 13.9 (5-19) 06/23/25 21: BUN 12 mg/dL (6-20) 06/23/25 21: Creatinine 0.8 mg/dL (0.7-1.2) 06/23/25 21: GFR Calculation 99.3 mL/min (90-130) 06/23/25 21: Glucose 125 mg/dL (65-115) H 06/23/25 21:30 Calculated Osmolality 285 mOsm/kg (285-295) 06/23/25: Calcium 9.0 mg/dL (8.5-10.5) 06/23/25 21:30 Total Bilirubin 0.3 mg/dL (0.15-1.2) 06/23/25 21:30 AST 17 U/L (0-40) 06/23/25 21:30 ALT 21 U/L (0-41) 06/23/25 21:30 Alkaline Phosphatase 128 U/L (40-130) 06/23/25 21: Total Protein 8.2 g/dL (6.6-8.7) 06/23/25 21: Albumin 3.9 g/dL (3.5-5.2) 06/23/25 21: Globulin 4.3 g/dL (1.3-4.6) 06/23/25 21:30 All radiology interpretation(s) finalized by discharge Discharge Plan Discharge Patient Disposition: Home Clinical Impression: Pain Condition: Stable Prescriptions: New oxycodone-acetaminophen [Percocet] 5-325 mg tablet 1 tab PO BID PRN (Reason: pain) Qty: 10 0RF No Action acetaminophen [Tylenol] 325 mg tablet 650 mg PO QID PRN (Reason: Pain) Eliquis 5 mg tablet 5 mg PO BID Qty: 180 1RF aspirin 81 mg tablet,delayed release (DR/EC) 81 mg PO DAILY Qty: 90 1RF Jardiance 10 mg tablet 10 mg PO DAILY Qty: 90 1RF spironolactone 25 mg tablet 12.5 mg PO DAILY Qty: 90 1RF thiamine HCl (vitamin B1) 100 mg tablet 100 mg PO DAILY Qty: 90 1RF folic acid 1 mg Tablet 1 mg PO DAILY Qty: 30 0RF multivitamin with folic acid [Thera] 400 mcg Tablet 1 tab PO DAILY Qty: 30 0RF amiodarone [Pacerone] 200 mg Tablet See Rx Instructions .ROUTE .COMPLEX 30 Days Qty: 60 0RF Rx Instructions: 1 tab twice daily for 3 days, followed by 1 tab daily nitroglycerin 0.4 mg Tablet, Sublingual 0.4 mg sublingual Q5M PRN (Reason: Chest Pain) 30 Days Qty: 30 0RF insulin lispro [Humalog U-100 Insulin] 100 unit/mL Solution See Rx Instructions .ROUTE .COMPLEX Qty: 10 0RF Rx Instructions: Inject, subcut, 3 times daily, after meals, based on low-dose sliding scale metoprolol succinate 100 mg tablet extended release 24 hr 25 mg PO DAILY Qty: 90 1RF Discharge Orders: Discharge ED (Routine); Ordered 06/23/25 Ordered By: Juan Tobar Referrals: Oliver Dempsey MD [Primary Care Provider, Family Practice] Discharge Diet: Usual diet Discharge Activity: Increase activity as tolerated Patient Instructions: Opioid Safety, Pain Management, Patient Portal & Annie Instructions Activity Restrictions/Additional Instructions: X-rays and blood tests and EKG today are reassuring with no evidence of new problems or emergencies requiring hospitalization. You have pain in your shoulder and your leg and your abdomen and your chest and your back and your neck and seems like it it is most likely that your pain is getting worse because you ran out of pain medication today. I prescribed a 5-day course of strong narcotic pain medicine during which time you can contact your doctors to see if they feel you require ongoing pain medication. Typically, it is not advisable to take opioid medication for the long-term as it can cause situations like this. 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
[2025-06-24 00:19] VITALS: BP 136/84; PULSE 73; O2SAT 96
== END 2025-06-23 22:33 | disposition home or self-care (01) ==
PROVIDERS: Emergency Provider Student in an Organized Health Care Education/Training Program; PCP Family Medicine
DX: M25.512 Pain in left shoulder (principal); Z79.01 Long term (current) use of anticoagulants; Z79.82 Long term (current) use of aspirin; Z79.4 Long term (current) use of insulin; F17.210 Nicotine dependence, cigarettes, uncomplicated; E11.9 Type 2 diabetes mellitus without complications; E11.40 Type 2 diabetes mellitus with diabetic neuropathy, unspecified; I11.0 Hypertensive heart disease with heart failure; I50.20 Unspecified systolic (congestive) heart failure
CPT/HCPCS: 36415; 73000; 80053; 85025; 93005; 96374; 99024; 99285; J2270

== ENCOUNTER → 2025-06-25 13:38 | Outpatient (BNVA) | payer MEDICAID, SELFPAY | PROVIDERS: PCP Family Medicine; Visit Provider Internal Medicine | DX: I82.412 Acute embolism and thrombosis of left femoral vein (principal); Z95.828 Presence of other vascular implants and grafts; I11.0 Hypertensive heart disease with heart failure; I50.20 Unspecified systolic (congestive) heart failure; E11.51 Type 2 diabetes mellitus with diabetic peripheral angiopathy without gangrene; F17.210 Nicotine dependence, cigarettes, uncomplicated; I48.20 Chronic atrial fibrillation, unspecified; Z79.01 Long term (current) use of anticoagulants; Z79.4 Long term (current) use of insulin | CPT/HCPCS: 36415; 80048; 85025; 85610; 99214 ==

== ENCOUNTER → 2025-06-29 10:04 | Outpatient (BNVA) | payer MEDICAID, SELFPAY | PROVIDERS: PCP Family Medicine; Visit Provider Thoracic Surgery (Cardiothoracic Vascular Surgery) | DX: I96 Gangrene, not elsewhere classified (principal); I87.2 Venous insufficiency (chronic) (peripheral); L97.811 Non-pressure chronic ulcer of other part of right lower leg limited to breakdown of skin | CPT/HCPCS: 97597; A6021 ==

== ENCOUNTER → 2025-07-06 10:02 | Outpatient (BNVA) | payer MEDICAID, SELFPAY | PROVIDERS: PCP Family Medicine; Visit Provider Thoracic Surgery (Cardiothoracic Vascular Surgery) | DX: I96 Gangrene, not elsewhere classified (principal); T87.81 Dehiscence of amputation stump; Y83.8 Other surgical procedures as the cause of abnormal reaction of the patient, or of later complication, without mention of misadventure at the time of the procedure; Z89.512 Acquired absence of left leg below knee; Z09 Encounter for follow-up examination after completed treatment for conditions other than malignant neoplasm | CPT/HCPCS: 11042; 87070; 87176; 87205 ==

== ENCOUNTER 2025-07-09 05:03 | Emergency (ER) | payer MEDICAID, SELFPAY ==
--- OUTSIDE RECORDS SUMMARY | 2024-07-09 06:00 | XMS_ITS ---
Author Organization [facility] Address [address] [place] [address] [phone] Care Team Providers Care Sailing Officer Name Role Phone Zack Geller Primary Care Provider [phone] Loreto Ahn Unavailable [phone] REASON FOR VISIT [facility] f/u, DM f/u, A1c needed Social History Sex Assigned At : Social History Observation Description Sex Assigned At Male Encounters Encounter Location Date Provider Diagnosis [facility] [address] [place] [address] [phone] 07/09/2024 Loreto Ahn Plan Of Treatment No Information Progress Notes * Gabe SOLORZANOOB: 7 (59 yo M)Acc No.[id number]:07/09/2024 Patient: Zulma NAYAKTIMOTEO Andrew Provider: Venkatesh Ahn APN :1965 A ge:58 Y S ex:Male Date:07/09/2024 Address:[address] [place], [place] [phone] Pcp:Zack Geller Subjective: * Chief Complaints: * [...] Venkatesh Ahn APN Date: Generated for Sergey garvey/Jennifer/eTransmitting on: 05:10 AM CDT
--- OUTSIDE RECORDS SUMMARY | 2024-09-25 10:15 | XMS_ITS ---
Author Organization [facility] Address [address] [place] [address] [phone] Care Team Providers Care Benzene Worker Name Role Phone Zack Geller Primary Care Provider [phone] REASON FOR VISIT DM f/u Social History Sex Assigned At : Social History Observation Description Sex Assigned At Male Encounters Encounter Location Date Provider Diagnosis [facility] [address] [place] [address] [phone] 09/25/2024 Zack Geller Plan Of Treatment No Information Progress Notes * Kai SOLORZANOEuegneOB: 7 (59 yo M)Acc No.[id number]:09/25/2024 Progress Notes Patient: Andrew JUAREZ Provider: Richar Geller MD :1965 A ge:58 Y S ex:Male Date:09/25/2024 Address:[address] [place], [place] [phone] Subjective: * Chief Complaints: * 1 . [...] 0 09/25/2024 Generated for Sergey garvey/Jennifer/Jeffreyitting on: 05:10 AM CDT
--- OUTSIDE RECORDS SUMMARY | 2025-07-08 14:30 | XMS_ITS | Encounter Summary ---
Author Organization [facility] Address [address] [place] [address] Care Team Providers Care Second Worker Name Role Phone Bhupinder Brooks MD Primary Care Provider Félix jacobsen Reason for Visit * Reason Comments Follow Up No show * Eval and Treat (31-60 Days) - Authorized Specialty Diagnoses / Procedures Referred By Contac t Referred To Contact Physical Medicine and Rehabilitation Diagnoses S/P BKA (below knee amputation), left (CMS/HCC) Procedures TX OFFICE/OUTPATIENT ESTABLISHED MOD MDM 30 MIN TX OFFICE/OUTPATIENT NEW MODERATE MDM 45 MINUTES Larry Cunningham MD [address] [address] Phone: tel: fax: Larry Cunningham MD [address] [address] Phone: tel: fax: Referral ID Status Reason Start Date Expiration Date V isits Requested Visits Authorized [id number] Authorized 06/12/2025 06/12/2026 1 1 Encounter Details Date Type Department Care Team (Late st Contact Info) Description 07/08/2025 2:30 PM CDT Telephone Check Up [facility] [address] [place] [phone] Jamila Gamez, ANP [address] [facility] [address] [place] [phone] Social History Tobacco Use Types Packs/Day Years Used Date Smoking Tobacco: Every Day Cigarettes 1 6.8 Started: 2019 Smokeless Tobacco: Never Feeling Safe Answer Date Recorded Are you in a relationship wi th someone who hurts you emotionally and/or physically? 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 Gender Identity Not on file Sexual Orientation Not on file documented as of this encounter Plan of Treatment Scheduled Referrals Name Type Priority Associated Diagnoses Orde r Schedule AMB REFERRAL TO PHYSICIAL MEDICINE REHAB Outpatient Referral Routine S/P BKA (below knee amputation), left ([facility]) Ordered: 06/12/2025 documented as of this encounter Visit Diagnoses Not on filedocumented in this encounter Care Teams Second Worker Relationship Specialty Start Date End Date Bhupinder Brooks MD [address] [place] [address] PCP - General 12/30/07 documented as of this encounter
[2025-07-09 04:54] VITALS: BP 146/96; PULSE 80; RESP 18; TEMP 36.6; O2SAT 98; BMI 27.3
[2025-07-09 05:07] VITALS: BP 154/91; PULSE 75; O2SAT 95
--- OUTSIDE RECORDS SUMMARY | 2025-07-09 05:10 | XMS_ITS | Patient Health Record ---
Author Organization [facility] Address [address] [place], [place] [id number] Care Team Providers Care Grainer Machine Name Role Phone Zack Geller Primary Care Provider [phone] Loreto Ahn Unavailable [phone] Allergies No Known Allergies Results Component Value Reference Range Notes HgbA1C [893805] Reviewed date:07/23/2024 08:08:50 AM Interpretation:7.7 Performing Lab:[facility] [address] [facility], [place], Phone - [phone], Director - Emmie Notes/Report: Hemoglobin A1c 7.7 4.8-5.6 % Glycemic [...] capsule Orally Once a day Active Pen [place] 30G X 5 MM 1 needle once [...] q uitting Section Notes: Updated 04/07/2021 M MAGNETIC GRINDER OPERATOR Updated 04/07/2021 M MAGNETIC GRINDER OPERATOR Updated 04/07/2021 M MAGNETIC GRINDER OPERATOR Updated 04/07/2021 M MAGNETIC GRINDER OPERATOR Updated 04/07/2021 M MAGNETIC GRINDER OPERATOR Updated 04/07/2021 M MAGNETIC GRINDER OPERATOR Updated 04/07/2021 M [facility] Problems Problem Type SNOMED Code ICD Code Onset Dates Problem Status W/U Status Risk Notes Problem 668175921 half-way (current) use of insulin (Z79.4) Active confirmed Problem 80443847 Alcohol abuse (F10.10) Active confirmed Problem 582735212 Tobacco abuse (Z72.0) Active confirmed Problem 24109796 Essential hypertension (I10) Active confirmed Problem 60943505 Type 2 diabetes mellitus with other specified complication (E11.69) Active confirmed Problem 62616754643444730 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) Active confirmed Problem 325725276 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 (I83.019) Active confirmed Problem 38355783828866557 Varicose veins of left 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) Active confirmed Problem 680050337 Varicose veins of left lower extremity with ulcer of unspecified site (I83.029) Active confirmed Problem 55685386253230461 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) Active confirmed Problem 95300280562873801 Non-pressure chronic ulcer of left calf with unspecified severity (L97.229) Active confirmed Problem 70068589 Non-pressure chronic ulcer of unspecified part of right lower leg with unspecified severity (L97.919) Active confirmed Problem 65404079 Non-pressure chronic ulcer of unspecified part of left lower leg with unspecified severity (L97.929) Active confirmed Problem 90197127 Chronic obstructive pulmonary disease, unspecified COPD type (J44.9) Active confirmed Problem 568798499559355 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) Active confirmed Problem 966152671 Deep vein thrombosis (DVT) of lower extremity, unspecified chronicity, unspecified laterality, unspecified vein (I82.409) Active confirmed Vital Signs Temperature 97.8 degrees Fahrenheit 08/19/2024 Oximetry 97 08/19/2024 Blood pressure diastolic 77 mm Hg 08/19/2024 Height 65 in 08/19/2024 Blood pressure systolic 124 mm Hg 08/19/2024 Weight 181.0 lbs 08/19/2024 BMI 30.12 kg/m2 08/19/2024 Encounters Encounter Location Date Provider Diagnosis [facility] [address] [place] [address] [id number] 07/23/2024 Zack Geller [facility] [address] [place] [address] [id number] 07/22/2024 Loreto Ahn Type 2 diabetes mellitus [...] calf with unspecified severity L97.229 [facility] [address] [place] [address] [id number] 08/19/2024 Loreto Ahn Open wounds involvin g multiple regions of lower extremity with complication S81.809A Assessments Encounter Date Diagnosis (ICD Code) Assessment Notes Treatment Notes Treatment Clinical Notes Section Notes 08/19/2024 Open wounds involving multiple regions of lower extremity with complication (ICD-10 - S81.809A) Continue Antibiotics Follow with Wound Care As scheduled Keep appointments with Infectious Disease 07/22/2024 Type 2 diabetes mellitus with other specified complication (ICD-10 - E11.69) 07/22/2024 Cellulitis of right lower extremity (ICD-10 - L03.115) resolving 07/22/2024 Varicose veins of right lower extremity [...] Insured Coverage Start Date Coverage End Date [facility] [id number] [place], [place] [id number] Andrew Ruggiero Self - patient is the insured 1 Medical (General) History Medical History History ICD Code Chronic LE wounds Hypertension Combined systolic and diastolic heart fa ilure Diabetes mellitus Hospitalization History Reason Date(Month/Year) [facility]-chest pain and dizziness 03/26/24 heart failure 07/13/2020 [facility] right foot 08/28/2013
--- OUTSIDE RECORDS SUMMARY | 2025-07-09 05:10 | XMS_ITS | Clinical Summary ---
Author Organization [employer] Address [address] [facility] Attn: Epic [place] [id number] Care Team Providers Care Handbag Finisher Name Role Phone Bhupinder Brooks MD Primary Care Provider Félix jacobsen Allergies No known active allergies Medications thiamine mononitrate (VITAMIN B-1) 100 mg tablet Take 1 Tablet (100 mg) by mouth daily. 30 Tablet 1 06/13/20 25 Active temazepam (RESTORIL) 15 mg capsuleIndicati ons:Primary insomnia Take 1 Capsule (15 mg) by mouth nightly as needed for Insomnia. 30 Capsule 06/12/20 25 Active spironolactone (ALDACTONE) 25 mg tablet Take 0.5 Tablets (12.5 mg) by mouth daily. 30 Tablet 1 06/13/20 25 Active oxyCODONE (ROXICODONE) 5 mg tabletIndicatio ns:S/P BKA (below knee amputation), left (CMS/HCC) Take 1 Tablet (5 mg) by mouth every 4 hours as needed for Pain. Max Daily Amount: 30 mg 20 Tablet 06/12/20 25 Active nicotine (NICODERM CQ) 21 mg/24 hr patch Apply 1 Patch to skin as directed daily. 30 Patch 06/13/20 25 Active multivitamin with folic acid 400 mcg Tablet tablet Take 1 Tablet by mouth daily. 30 Tablet 1 06/13/20 25 Active metoprolol succinate (TOPROL XL) 25 mg Extended Release 24 hour tablet Take 1 Tablet (25 mg) by mouth daily. 30 Tablet 1 06/13/20 25 Active bisacodyL (DULCOLAX) 10 mg Suppository Insert 1 Suppository (10 mg) by rectum every other day. 15 Suppository 06/12/20 25 Active glucagon HCL 1 mg/mL Recon Soln Inject 1 mL (1 mg) by intramuscular injection see administration instructions. 3 mL 06/12/20 25 Active folic acid (FOLVITE) 1 mg tablet Take 1 Tablet (1 mg) by mouth daily. 30 Tablet 1 06/13/20 25 Active famotidine (PEPCID) 20 mg tablet Take 1 Tablet (20 mg) by mouth 2 times daily. 60 Tablet 06/12/20 25 Active empagliflozin (Jardiance) 10 mg tablet Take 1 Tablet (10 mg) by mouth daily in the morning. 30 Tablet 1 06/13/20 25 Active aspirin (ECOTRIN EC) 81 mg Tablet, Delayed Release (E.C.) Take 1 Tablet (81 mg) by mouth daily. 30 Tablet 1 06/13/20 25 Active apixaban (ELIQUIS) 5 mg tablet Take 1 Tablet (5 mg) by mouth 2 times daily. 60 Tablet 1 06/12/20 25 Active amiodarone (CORDARONE) 200 mg tablet Take 1 Tablet (200 mg) by mouth daily. 30 Tablet 1 06/13/20 25 Active aluminum - magnesium - simethicone (MYLANTA) 200-200-20 mg/5 mL Suspension Take 30 mL by mouth every 6 hours as needed for Indigestion or Gas. 769 mL 06/12/20 25 Active acetaminophen (TYLENOL) 325 mg tablet Take 2 Tablets (650 mg) by mouth every 6 hours as needed for Pain, Mild, Pain, Moderate or Temperature (See admin instructions). 120 Tablet 06/12/20 25 Active naloxone (NARCAN) 4 mg/spray [place], Non-Aerosol EMERGENCY USE ONLY: Administer 1 spray (4 mg) in one nostril one time. May repeat in alternating nostrils every 2-3 min until responsive or EMS arrives. 2 Each 3 06/12/20 25 Active Active Problems Problem Noted Date Diagnosed Date Osteomyelitis of left foot (CMS/HCC) s/p Lt BKA 06/03/2025 Ventricular tachycardia 06/02/2025 ICD (implantable cardioverter-defibrillator) in place 06/02/2025 S/P BKA (below knee amputation), left 06/02/2025 Type 2 diabetes mellitus with hyperglycemia 05/2025 Atrial fibrillation 06/02/2025 HFrEF (heart failure with reduced ejection fract ion) 06/02/2025 Acute deep vein thrombosis ( DVT) of proximal vein of left lower extremity 06/02/2025 Chronic osteomyelitis 06/02/2025 Encounters Date Type Department Care Team Description 07/08/2025 2:30 PM CDT Telephone Check Up [facility] Physical Med and Rehab [facility] [address] [place] [address] Jamila Gamez ANP 06/02/2025 1:38 PM CDT - 06/13/2025 6:42 PM CDT Hospital Encounter [facility] [address] [place] [address] Larry Cunningham MD Osteomyelitis of left foot (CMS/HCC) Discharge Disposition: Home or Self Care 06/02/2025 Travel from Last 3 Months Social History Tobacco Use Types Packs/Day Years Used Date Smoking Tobacco: Every Day Cigarettes 1 6.8 Started: 2018 Smokeless Tobacco: Never Tobacco Cessation:Ready to Q uit: Not Asked; Counseling Given: Not Answered Feeling Safe Answer Date Recorded Are you [...] on file 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 Gender Identity Not on file Sexual Orientation Not on file Last Filed Vital Signs Vital Sign Reading Time Taken Comments Blood Pressure 143/80 06/13/2025 4:10 PM CDT Pulse 91 06/13/2025 4:10 PM CDT Temperature 37.2 C (98.9 F) 06/13/2025 4:10 PM CDT Respiratory Rate 18 06/13/2025 4:10 PM CDT Oxygen Saturation 93% 06/13/2025 4:10 PM CDT Inhaled Oxygen Concentration - - Weight 70.8 kg (156 lb) 06/13/2025 7:00 AM CDT Height 170.2 cm (5' 7 ) 06/02/2025 1:45 PM CDT Body Mass Index 24.43 06/02/2025 1:45 PM CDT Plan of Treatment Health Maintenance Due Date Last Done Comments DIABETES ANNUAL FOOT EXAM 1984 DIABETES ANNUAL RETINAL EXAM 1984 DIABETES MICROALBUMIN ANNUAL SCREEN 1984 LDL CHOLESTEROL ANNUAL 1984 HEPATITIS B VACCINES (1 of 3 - 19+ 3-dose series) 1985 Preventative Visit-Managed Medicaid 1985 DTAP/TDAP/TD VACCINES (1 - Tdap) 12/17/1993 12/16/18 94 COLORECTAL SCREENING 12/03/2011 Colorectal Cancer Screening 12/03/2011 FIT-DNA Q 3 years 12/03/2011 FIT/FOBT Q 1 year 12/03/2011 Flex Sig/CT Colonography Q 5 years 12/03/2011 ZOSTER VACCINE (1 of 2) 2016 INFLUENZA VACCINE (#1) 2025 DIABETES HBA1C Q 6 MONTHS 12/01/2025 06/03/2025, Procedures Procedure Name Priority Date/Time Associated Diagnosis Comments POC GLUCOSE Routine 06/13/2025 5:38 PM CDT POC GLUCOSE Routine 06/13/2025 7:24 AM CDT PROCEDURE REPORT 06/12/2025 12:0 1 PM CDT POC GLUCOSE Routine 06/12/2025 7:14 AM CDT POC GLUCOSE Routine 06/11/2025 7:13 AM CDT POC GLUCOSE Routine 06/10/2025 7:22 AM CDT CBC WITH DIFFERENTIAL Routine 06/10/2025 5:38 AM CDT COMPREHENSIVE METABOLIC PANEL Routine 06/10/2025 5:23 AM CDT POC GLUCOSE Routine 06/09/2025 5:25 PM CDT POC GLUCOSE Routine 06/09/2025 7:02 AM CDT POC GLUCOSE Routine 06/08/2025 8:39 AM CDT POC GLUCOSE Routine 06/06/2025 12:21 PM CDT POC GLUCOSE Routine 06/06/2025 7:14 AM CDT POC GLUCOSE Routine 06/05/2025 9:58 PM CDT POC GLUCOSE Routine 06/05/2025 5:20 PM CDT POC GLUCOSE Routine 06/05/2025 12:31 PM CDT POC GLUCOSE Routine 06/05/2025 7:10 AM CDT POC GLUCOSE Routine 06/04/2025 4:58 PM CDT POC GLUCOSE Routine 06/04/2025 11:31 AM CDT POC GLUCOSE Routine 06/04/2025 7:08 AM CDT POC GLUCOSE Routine 06/03/2025 7:45 PM CDT POC GLUCOSE Routine 06/03/2025 5:21 PM CDT HEMOGLOBIN A1C Routine 06/03/2025 2:15 PM CDT POC GLUCOSE Routine 06/03/2025 11:52 AM CDT POC GLUCOSE Routine 06/03/2025 7:48 AM CDT COMPREHENSIVE METABOLIC PANEL Routine 06/03/2025 5:10 AM CDT CBC WITH DIFFERENTIAL Routine 06/03/2025 5:10 AM CDT POC GLUCOSE Routine 06/02/2025 8:01 PM CDT POC GLUCOSE Routine 06/02/2025 4:36 PM CDT from Last 3 Months Results * (ABNORMAL) POC GLUCOSE (06/13/2025 5:38 PM CDT) Only the most recent of23 resultswithin the time period is included. GLUCOSE POC 129(H) 74 - 99 mg/dL 06/13/2025 5:38 PM CDT [facility] SPECIMEN SOURCE, GLUCOSE POC Whole Blood 06/13/2025 5:38 PM CDT [facility] Blood, whole 06/13/2025 5:38 PM CDT 06/13/2025 6:32 PM CDT Larry Cunningham MD POINT OF CARE TESTING Final Res ult [facility] CLIA# [id number] [address] [id number], * PROCEDURE REPORT (06/12/2025 12:01 PM CDT) us Provider Scanning PROCEDURE/MINOR SURGICAL ORDER SANDOVAL Final Result * (ABNORMAL) CBC WITH DIFFERENTIAL (06/10/2025 5:38 AM CDT) Only the most recent of2 resultswithin the time period is included. Pathologist [facility] WBC 6.0 4.8 - 10.8 K/uL 06/10/2025 8:10 AM CDT [facility] RBC 4.86 4.60 - 6.20 M/uL 06/10/2025 8:10 AM T [facility] HEMOGLOBIN 12.7(L) 14.0 - 18.0 g/dL 06/10/2025 8:10 AM T [facility] HEMATOCRIT 39.8(L) 41.0 - 53.0 % 06/10/2025 8:10 AM T [facility] MCV 81.9(L) 84.0 - 103.0 fL 06/10/2025 8:10 AM T [facility] MCH 26.1(L) 31.0 - 37.0 pg 06/10/2025 8:10 AM CDT [facility] MCHC 31.9 30.0 - 35.0 g/dL 06/10/2025 8:10 AM CDT [facility] RDW 15.0(H) 11.0 - 14.5 % 06/10/2025 8:10 AM CDT [facility] RDW-STDEV 43.8 37.0 - 54.0 fL 06/10/2025 8:10 AM CDT [facility] PLATELETS 356 140 - 440 K/uL 06/10/2025 8:10 AM CDT [facility] MPV 10.8 8.9 - 12.8 fL 06/10/2025 8:10 AM CDT [facility] NEUTROPHILS 58 42 - 75 % 06/10/2025 8:10 AM CDT [facility] LYMPHOCYTES 30 24 - 44 % 06/10/2025 8:10 AM CDT [facility] MONOCYTES 9 2 - 10 % 06/10/2025 8:10 AM CDT [facility] EOSINOPHILS 2 0 - 7 % 06/10/2025 8:10 AM CDT [facility] BASOPHILS 1 0 - 1 % 06/10/2025 8:10 AM CDT [facility] IMMATURE GRANULOCYTES 0 0 - 2 % 06/10/2025 8:10 AM CDT [facility] NEUTROPHIL ABSOLUTE 3.50 2.00 - 8.00 K/uL 06/10/2025 8:10 AM CDT [facility] LYMPHOCYTE ABSOLUTE 1.80 1.20 - 4.00 K/uL 06/10/2025 8:10 AM CDT [facility] MONOCYTE ABSOLUTE 0.51 0.10 - 0.60 K/uL 06/10/2025 8:10 AM CDT [facility] EOSINOPHIL ABSOLUTE 0.13 0.00 - 0.70 K/uL 06/10/2025 8:10 AM CDT [facility] BASOPHILS ABSOLUTE 0.04 0.00 - 0.20 K/uL 06/10/2025 8:10 AM CDT [facility] IMMATURE GRANULOCYTES ABSOLUTE 0.02 0.00 - 0.10 K/uL 06/10/2025 8:10 AM T [facility] Blood BLOOD SPECIMEN / Unknown Venipuncture / Unknown 06/10/2025 5:38 AM CDT 06/10/2025 7:40 AM CDT us Jamila Gamez ANP HEMATOLOGY ORDERABLES Poornima reyes Result [facility] CLIA #[id number] [address] [address] * (ABNORMAL) COMPREHENSIVE METABOLIC PANEL (06/10/2025 5:23 AM CDT) Only the most recent of2 resultswithin the time period is included. SODIUM 135(L) 136 - 145 mmol/L 06/10/2025 7:59 AM [facility] POTASSIUM 4.2 3.5 - 5.1 mmol/L 06/10/2025 7:59 AM [facility] CHLORIDE 102 98 - 107 mmol/L 06/10/2025 7:59 AM [facility] CO2 22 22 - 29 mmol/L 06/10/2025 7:59 AM [facility] CALCIUM 9.4 8.6 - 10.0 mg/dL 06/10/2025 7:59 AM T [facility] BUN 16 6 - 20 mg/dL 06/10/2025 7:59 AM [facility] CREATININE 0.99 0.67 - 1.17 mg/dL 06/10/2025 7:59 AM [facility] GLUCOSE 115(H) 74 - 99 mg/dL 06/10/2025 7:59 AM [facility] TOTAL PROTEIN 8.7 6.6 - 8.7 g/dL 06/10/2025 7:59 AM [facility] ALBUMIN 3.7 3.5 - 5.2 g/dL 06/10/2025 7:59 AM [facility] BILIRUBIN TOTAL 0.5 0.0 - 1.2 mg/dL 06/10/2025 7:59 AM [facility] ALKALINE PHOSPHATASE 112 40 - 129 U/L 06/10/2025 7:59 AM [facility] AST 50 0 - 50 U/L 06/10/2025 7:59 AM [facility] ALT 53(H) 0 - 50 U/L 06/10/2025 7:59 AM [facility] GFR >60 >=60 mL/min/1.7 3 sq meter 06/10/2025 7:59 AM [facility] Comment:eGFR calculated with 2020 CKD-EPI equation. Vegetarian diet, extremely high or low muscle mass, and may affect results. Cystatin C with Glomerular Filtration Rate is a suitable alternative for these patients. ANION GAP 11 5 - 20 mmol/L 06/10/2025 7:59 AM [facility] Blood BLOOD SPECIMEN / Unknown Venipuncture / Unknown 06/10/2025 5:23 AM CDT 06/10/2025 7:42 AM CDT us Jamila Gamez ANP CHEMISTRY ORDERABLES Final Result [facility] CLIA #[id number] [address] [address] * (ABNORMAL) HEMOGLOBIN A1C (06/03/2025 2:15 PM CDT) HEMOGLOBIN A1C 7.2(H) <=5.6 % 06/05/2025 11:39 AM T [facility] EST. AVG GLUCOSE, A1C 160 mg/dL 06/05/2025 11:39 AM CDT [facility] Blood Venipuncture / Unknown 06/03/2025 2:15 PM CDT 06/03/2025 6:50 PM CDT Narrative [facility] - 06/05/2025 11:39 AM CDT HGB A1C INTERPRETATION NORMAL: <5.7% PRE-DIABETES: 5.7 - 6.4% DIABETES: 6.5% OR GREATER us Holly Max MD CHEMISTRY ORDERABLES Poornima amy Result [facility] [employer] [facility] CLIA # [id number] [facility] [address] from Last 3 Months Insurance MEDICAID [place] Advance Directives For more information, please contact: [phone] * Full Code (Latest Code Status on File) Date Activated Date Inactivated Comments 06/02/2025 1:42 PM 06/13/2025 8:48 PM Care Teams Handbag Finisher Relationship Specialty Start Date End Date Bhupinder Brooks MD [address] [place] [address] PCP - General 12/30/07
--- NOTE | 2025-07-09 05:54 | W.ED.EXTPRO ---
HPI - Extremity Problem General: Chief complaint: Extremity Problem,Nontraumatic Stated complaint: LEFT LEG PAIN History of Present Illness: Patient is a 59-year-old male with a past medical history of congestive heart failure, atrial fibrillation, PAD, lower extremity ulcers who recently underwent L BKA secondary to cellulitis/infection w/cc of pain of amputation site. Patient has not had a fever, denies current chest pain, shortness of breath, abdominal pain, nausea, vomiting. He has not experienced any malaise or rigors. Patient states he sees wound care regularly and wound was seen by wound care on 07/06. Patient has not noted any worsening erythema, streaking, severe bleeding. Patient denies purulence or malodor. He states that he has been prescribed oxycodone's which are not helping with his pain. Of note, he has surgery scheduled at 9:00 this morning at the surgical center for IVC filter placement. Related Data Home Medications ?Medication ?Instructions ?Recorded ?Confirmed acetaminophen 325 mg tablet 650 mg PO QID PRN Pain 01/07/25 07/08/25 (Tylenol) Previous Rx's ?Medication ?Instructions ?Recorded apixaban 5 mg tablet (Eliquis) 5 mg PO BID #180 tabs 01/07/25 aspirin 81 mg tablet,delayed 81 mg PO DAILY #90 tabs 01/07/25 release empagliflozin 10 mg tablet 10 mg PO DAILY #90 tabs 01/07/25 (Jardiance) spironolactone 25 mg tablet 12.5 mg (1/2 x 25 mg) PO DAILY #90 01/07/25 tabs thiamine HCl (vitamin B1) 100 mg 100 mg PO DAILY #90 tabs 01/08/25 tablet folic acid 1 mg tablet 1 mg PO DAILY #30 tabs 02/01/25 multivitamin with folic acid 400 1 tab PO DAILY #30 tabs 02/01/25 mcg tablet (Thera) insulin lispro 100 unit/mL See Rx Instructions .Route 06/02/25 subcutaneous solution (Humalog .COMPLEX #10 mL U-100 Insulin) metoprolol succinate 100 mg 25 mg (1/4 x 100 mg) PO DAILY #90 06/02/25 tablet,extended release 24 hr tabs oxycodone-acetaminophen 5 mg-325 1 tab PO BID PRN pain 7 days #28 10/02/25 mg tablet (Percocet) tabs sulfamethoxazole 800 1 tab PO BID #14 tabs 07/06/25 mg-trimethoprim 160 mg tablet (Bactrim DS) Allergies Allergy/AdvReac Type Severity Reaction Status Date / Time No Known Allergies Allergy Verified 06/25/25 13:59 PFSH ED PFSH: Medical History (Updated 07/09/25 @ 06:18 by Alyssa Ramírez MD) Tobacco use disorder Heart failure with mildly reduced ejection fraction (HFmrEF) Elevated blood pressure reading with diagnosis of hypertension Alcoholism with alcohol dependence Diabetes type 2, controlled Neuropathy History of non-ST elevation myocardial infarction (NSTEMI) Peripheral vascular disease Chronic atrial fibrillation Primary hypertension CHF (congestive heart failure) LVEF 64% 01/30/2025 Surgical History Hx of umbilical hernia repair 07/05/23 lap repair of umbilical hernia with mesh- Dr Obrien History of implantable cardioverter-defibrillator (ICD) placement Family History Mother CAD (coronary artery disease) Social History Smoking and tobacco/nicotine status: current every day tobacco/nicotine user cigarettes [ Other cigarette details: 1.5 pack per day x 40 years, currently down to 3-4 cig/day] Alcohol intake: current Alcohol intake frequency: 3 or more drinks per day Alcohol type: beer Substance/Drug Use: former Date of last use: marijuana in 2021 Household members: children Marital status: Single Number of children: 2 Number of grandchildren: 0 Current occupational status: disabled Special duc needs: No Agree to transfusion: Yes Physical Exam Narrative: EXAM NARRATIVE: Vitals were reviewed. Patient is alert, oriented and hemodynamically stable. He has clear lung sounds bilaterally, normal heart sounds. Patient has a soft, nondistended nontender abdomen. Wound on LLE does not appear infected. It is clean. He does not have any purulent drainage or malodor. Course Vital Signs: Vital signs: Vital Signs Temperature 97.9 F 07/09/25 04:54 Pulse Rate 75 07/09/25 05:07 Respiratory Rate 18 07/09/25 04:54 Blood Pressure 154/91 07/09/25 05:07 Pulse Oximetry 95 07/09/25 05:07 Oxygen Delivery Me thod Room Air 07/09/25 05:07 MDM - Extremity (Nontraumatic) Medical Decision Making 59yo M w/cc of post operative pain s/p L BKA one month ago. Patient denies any systemic symptoms. Differential diagnosis includes but is not limited to, cellulitis, abscess post operative pain. Patient was evaluated with screening labwork. He was treated w/IV dilaudid and IV zofran for pain. Lab Data 07/09/25 05:55 07/09/25 05:55 Laboratory Results WBC 6.30 10^3/uL (3.29-11.43) 07/09/25 05:55 RBC 5.45 10^6/uL (3.85-5.65) 07/09/25 05:55 Hgb 14.10 g/dL (11.27-16.99) 07/09/25 05:55 Hct 44.3 % (37-53) 07/09/25 05:55 MCV 81.3 fl (82-101) L 07/09/25 05:55 MCH 25.9 pg (27-33) L 07/09/25 05:55 MCHC 31.8 g/dL (30-55) 07/09/25 05:55 RDW 15.6 % (12.1-15.1) H 07/09/25 05:55 Plt Count 170 10^3/cmm (157-399) 07/09/25 05:55 MPV 9.9 fL (7.4-10.4) 07/09/25 05:55 Neut % (Auto) 65.9 % 07/09/25 05:55 Lymph % (Auto) 24.4 % 07/09/25 05:55 [place] % (Auto) 5.7 % 07/09/25 05:55 Eos % (Auto) 3.3 % 07/09/25 05:55 Baso % (Auto) 0.5 % 07/09/25 05:55 Neut # (Auto) 4.15 10^3/uL (1.8-7.7) 07/09/25 05:55 Lymph # (Auto) 1.5 10^3/uL (0.8-4.8) 07/09/25 05:55 [place] # (Auto) 0.4 10^3/uL (0.2-0.9) 07/09/25 05:55 Eos # (Auto) 0.2 10^3/uL (0.0-0.8) 07/09/25 05:55 Baso # (Auto) 0.0 10^3/uL (0.0-0.1) 07/09/25 05:55 Nucleated RBC % (auto) 0 % 07/09/25 05:55 Nucleated RBCs # 0.0 /100WBC 07/09/25 05:55 Sodium 137 mmol/L (136-145) 07/09/25 05:55 Potassium 4.1 mmol/L (3.5-5.1) 07/09/25 05:55 Chloride 101 mmol/L (98-107) 07/09/25 05:55 Carbon Dioxide 22 mmol/L (22-29) 07/09/25 05:55 Anion Gap 18.1 (5-19) 07/09/25 05:55 BUN 9 mg/dL (6-20) 07/09/25 05:55 Creatinine 0.7 mg/dL (0.7-1.2) 07/09/25 05:55 GFR Calculation 115.8 mL/min (90-130) 07/09/25 05:55 Calculated Osmolality 285 mOsm/kg (285-295) 07/09/25 05:55 Calcium 9.0 mg/dL (8.5-10.5) 07/09/25 05:55 No radiology studies performed this visit Discharge Plan Discharge Patient Disposition: Home Clinical Impression: Post-op pain Below-knee amputation of left lower extremity Qualifiers: Encounter type: initial encounter Qualified Code(s): S88.112A - Complete traumatic amputation at level between knee and ankle, left lower leg, initial encounter Condition: Stable Prescriptions: No Action oxycodone-acetaminophen [Percocet] 5-325 mg tablet 1 tab PO BID PRN (Reason: pain) 7 Days Qty: 28 0RF sulfamethoxazole-trimethoprim [Bactrim DS] 800-160 mg tablet 1 tab PO BID Qty: 14 0RF acetaminophen [Tylenol] 325 mg tablet 650 mg PO QID PRN (Reason: Pain) Eliquis 5 mg tablet 5 mg PO BID Qty: 180 1RF aspirin 81 mg tablet,delayed release (DR/EC) 81 mg PO DAILY Qty: 90 1RF Jardiance 10 mg tablet 10 mg PO DAILY Qty: 90 1RF spironolactone 25 mg tablet 12.5 mg PO DAILY Qty: 90 1RF thiamine HCl (vitamin B1) 100 mg tablet 100 mg PO DAILY Qty: 90 1RF folic acid 1 mg Tablet 1 mg PO DAILY Qty: 30 0RF multivitamin with folic acid [Thera] 400 mcg Tablet 1 tab PO DAILY Qty: 30 0RF insulin lispro [Humalog U-100 Insulin] 100 unit/mL Solution See Rx Instructions .ROUTE .COMPLEX Qty: 10 0RF Rx Instructions: Inject, subcut, 3 times daily, after meals, based on low-dose sliding scale metoprolol succinate 100 mg tablet extended release 24 hr 25 mg PO DAILY Qty: 90 1RF Discharge Orders: Discharge ED (Routine); Ordered 07/09/25 Ordered By: Alyssa Ramírez Referrals: Oliver Dempsey MD [Primary Care Provider, Family Practice] Patient Instructions: Opioid Safety, Pain Management, Patient Portal & Annie Instructions, Post Operative Pain Activity Restrictions/Additional Instructions: Please continue to monitor your condition closely at home. Take Tylenol 500mg every six hours for pain and inflammation. You may take oxycodone-acetaminophen you were prescribed by your surgeon for severe/breakthrough pain. Y If your condition worsens or additional concerns arise, please return promptly to the emergency department for reassessment. Follow up with your surgeon. If your pain remains uncontrolled, talk to your primary care doctor about referral to pain management. 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
[2025-07-09 06:08] LABS: Hematocrit 44.3 % (37-53); Hemoglobin 14.10 g/dL (11.27-16.99); Mean Corpuscular HGB Conc 31.8 g/dL (30-55); Mean Corpuscular Hemoglobin 25.9 pg (27-33); Mean Corpuscular Volume 81.3 fl (82-101); Nucleated Red Blood Cells % 0 %; Platelet Count 170 10^3/cmm (157-399); Red Blood Count 5.45 10^6/uL (3.85-5.65); White Blood Count 6.30 10^3/uL (3.29-11.43)
[2025-07-09 06:22] LABS: Anion Gap 18.1 (5-19); Blood Urea Nitrogen 9 mg/dL (6-20); Calcium 9.0 mg/dL (8.5-10.5); Carbon Dioxide 22 mmol/L (22-29); Chloride 101 mmol/L (98-107); Creatinine Clr Calc Pharmacy 116.1855; Glucose 133 mg/dL (65-115); Osmolality Calculated 285 mOsm/kg (285-295); Potassium 4.1 mmol/L (3.5-5.1); Sodium 137 mmol/L (136-145)
[2025-07-09 06:29] LABS: Procalcitonin 0.04 ng/mL (0-0.5)
[2025-07-09] MEDS: ondansetron 2 mg/ML SDV 2 mL 4 MG IVP (06:37)
[2025-07-09] MEDS: HYDROmorphone 0.5 MG/0.5 ML INJ 1 MG IVP (06:37)
== END 2025-07-09 07:11 | disposition home or self-care (01) ==
PROVIDERS: Emergency Provider Emergency Medicine; PCP Family Medicine
DX: G89.18 Other acute postprocedural pain (principal); Z89.512 Acquired absence of left leg below knee; Z79.01 Long term (current) use of anticoagulants; Z79.82 Long term (current) use of aspirin; Z79.4 Long term (current) use of insulin; F17.210 Nicotine dependence, cigarettes, uncomplicated; Z98.890 Other specified postprocedural states; E11.40 Type 2 diabetes mellitus with diabetic neuropathy, unspecified; I11.0 Hypertensive heart disease with heart failure; I50.20 Unspecified systolic (congestive) heart failure
CPT/HCPCS: 36415; 80048; 84145; 85025; 96374; 96375; 99284; J1171; J2405

== ENCOUNTER → 2025-07-13 13:54 | Outpatient (BNVA) | payer MEDICAID, SELFPAY | PROVIDERS: PCP Family Medicine; Visit Provider Thoracic Surgery (Cardiothoracic Vascular Surgery) | DX: I96 Gangrene, not elsewhere classified (principal); I87.2 Venous insufficiency (chronic) (peripheral); L97.811 Non-pressure chronic ulcer of other part of right lower leg limited to breakdown of skin; T87.81 Dehiscence of amputation stump; Y83.8 Other surgical procedures as the cause of abnormal reaction of the patient, or of later complication, without mention of misadventure at the time of the procedure; Z89.512 Acquired absence of left leg below knee ==

== ENCOUNTER → 2025-07-21 09:50 | Outpatient (BNVA) | payer MEDICAID, SELFPAY | PROVIDERS: PCP Family Medicine; Visit Provider Thoracic Surgery (Cardiothoracic Vascular Surgery) | DX: I96 Gangrene, not elsewhere classified (principal); T87.81 Dehiscence of amputation stump; Y83.8 Other surgical procedures as the cause of abnormal reaction of the patient, or of later complication, without mention of misadventure at the time of the procedure; Z89.512 Acquired absence of left leg below knee | CPT/HCPCS: 11043 ==

== ENCOUNTER → 2025-07-28 13:02 | Outpatient (BNVA) | payer MEDICAID, SELFPAY | PROVIDERS: PCP Family Medicine; Visit Provider Thoracic Surgery (Cardiothoracic Vascular Surgery) | DX: I96 Gangrene, not elsewhere classified (principal); T87.81 Dehiscence of amputation stump; Y83.8 Other surgical procedures as the cause of abnormal reaction of the patient, or of later complication, without mention of misadventure at the time of the procedure; Z89.512 Acquired absence of left leg below knee | CPT/HCPCS: 11043; A6237 ==

== ENCOUNTER → 2025-07-31 10:14 | Outpatient (BNVA) | payer MEDICAID, SELFPAY | PROVIDERS: PCP Family Medicine; Visit Provider Thoracic Surgery (Cardiothoracic Vascular Surgery) | DX: I96 Gangrene, not elsewhere classified (principal); T81.31XD Disruption of external operation (surgical) wound, not elsewhere classified, subsequent encounter; Y83.8 Other surgical procedures as the cause of abnormal reaction of the patient, or of later complication, without mention of misadventure at the time of the procedure | CPT/HCPCS: 11043; 97605; A6237; A6250 ==

== ENCOUNTER → 2025-08-04 13:14 | Outpatient (BNVA) | payer MEDICAID, SELFPAY | PROVIDERS: PCP Family Medicine; Visit Provider Thoracic Surgery (Cardiothoracic Vascular Surgery) | DX: I96 Gangrene, not elsewhere classified (principal); T87.81 Dehiscence of amputation stump; Y83.8 Other surgical procedures as the cause of abnormal reaction of the patient, or of later complication, without mention of misadventure at the time of the procedure; Z89.512 Acquired absence of left leg below knee | CPT/HCPCS: A6237; A6250 ==

== ENCOUNTER → 2025-08-07 10:34 | Outpatient (BNVA) | payer MEDICAID, SELFPAY | PROVIDERS: PCP Family Medicine; Visit Provider Thoracic Surgery (Cardiothoracic Vascular Surgery) | DX: I96 Gangrene, not elsewhere classified (principal); T87.81 Dehiscence of amputation stump; Y83.8 Other surgical procedures as the cause of abnormal reaction of the patient, or of later complication, without mention of misadventure at the time of the procedure; Z89.512 Acquired absence of left leg below knee | CPT/HCPCS: 11043; 97597; 97605; 99211; A6446 ==

== ENCOUNTER → 2025-08-11 13:11 | Outpatient (BNVA) | payer MEDICAID, SELFPAY | PROVIDERS: PCP Family Medicine; Visit Provider Thoracic Surgery (Cardiothoracic Vascular Surgery) | DX: I96 Gangrene, not elsewhere classified (principal); T87.81 Dehiscence of amputation stump; Y83.8 Other surgical procedures as the cause of abnormal reaction of the patient, or of later complication, without mention of misadventure at the time of the procedure; Z89.512 Acquired absence of left leg below knee | CPT/HCPCS: 11043; 97597 ==

== ENCOUNTER → 2025-08-14 09:57 | Outpatient (BNVA) | payer MEDICAID, SELFPAY | PROVIDERS: PCP Family Medicine; Visit Provider Thoracic Surgery (Cardiothoracic Vascular Surgery) | DX: I96 Gangrene, not elsewhere classified (principal); T87.81 Dehiscence of amputation stump; Y83.8 Other surgical procedures as the cause of abnormal reaction of the patient, or of later complication, without mention of misadventure at the time of the procedure; Z89.512 Acquired absence of left leg below knee | CPT/HCPCS: 97605; A6237; A6250 ==

== ENCOUNTER → 2025-08-18 12:59 | Outpatient (BNVA) | payer MEDICAID, SELFPAY | PROVIDERS: PCP Family Medicine; Visit Provider Thoracic Surgery (Cardiothoracic Vascular Surgery) | DX: I96 Gangrene, not elsewhere classified (principal); T87.81 Dehiscence of amputation stump; Y83.8 Other surgical procedures as the cause of abnormal reaction of the patient, or of later complication, without mention of misadventure at the time of the procedure; Z89.512 Acquired absence of left leg below knee | CPT/HCPCS: 11042; 97597 ==

== ENCOUNTER → 2025-08-24 10:00 | Outpatient (BNVA) | payer MEDICAID, SELFPAY | PROVIDERS: PCP Family Medicine; Visit Provider Thoracic Surgery (Cardiothoracic Vascular Surgery) | DX: I96 Gangrene, not elsewhere classified (principal); T87.81 Dehiscence of amputation stump; Y83.8 Other surgical procedures as the cause of abnormal reaction of the patient, or of later complication, without mention of misadventure at the time of the procedure; Z89.512 Acquired absence of left leg below knee | CPT/HCPCS: 97597; 97605; A6237 ==

== ENCOUNTER → 2025-08-27 10:46 | Outpatient (BNVA) | payer MEDICAID, SELFPAY | PROVIDERS: PCP Family Medicine; Visit Provider Thoracic Surgery (Cardiothoracic Vascular Surgery) | DX: I96 Gangrene, not elsewhere classified (principal); T87.81 Dehiscence of amputation stump; Y83.8 Other surgical procedures as the cause of abnormal reaction of the patient, or of later complication, without mention of misadventure at the time of the procedure; Z89.512 Acquired absence of left leg below knee | CPT/HCPCS: 99212 ==

== ENCOUNTER 2025-09-01 18:19 | Inpatient (IN) | payer MEDICAID, SELFPAY ==
--- OUTSIDE RECORDS SUMMARY | 2024-07-09 05:00 | XMS_ITS ---
Author Organization [facility] Address [address] [place] [address] [phone] Care Team Providers Care Instrument Lens Grinder Name Role Phone Zack Geller Primary Care Provider Loreto Ahn Unavailable [phone] REASON FOR VISIT [facility] f/u, DM f/u, A1c needed Social History Sex Assigned At : Social History Observation Description Sex Assigned At Male Encounters Encounter Location Date Provider Diagnosis [facility] [address] [place] [address] [phone] 07/09/2024 Loreto Ahn Plan Of Treatment No Information Progress Notes * Gabe SOLORZANOOB: 7 (59 yo M)Acc No.[id number]:07/09/2024 Patient: Zulma juarezAndrew banerjee Provider: Venkatesh Ahn APN :1965 A ge:58 Y S ex:Male Date:07/09/2024 Address:[address] [place], [place] [phone] Pcp:Zack Geller Subjective: * Chief Complaints: * [facility] f/u, DM f/u, A1c needed Billing Information: * Procedure Codes: * The named appointment provid er may or may not be the originator of this progress note, and it is not deemed complete until electronically signed by the appointment provider. Sign off status: Pending * Provider: Venkatesh Ahn APN Date: Generated for Sergey ng/Farichag/eTransmitting on: 11/02/2024 07:26 PM MANAGER MONEY
[2025-09-01 18:31] VITALS: BP 170/100; PULSE 82; RESP 18; TEMP 36.7; O2SAT 98
[2025-09-01 19:03] LABS: Hematocrit 46.5 % (37-53); Hemoglobin 14.80 g/dL (11.27-16.99); Mean Corpuscular HGB Conc 31.8 g/dL (30-55); Mean Corpuscular Hemoglobin 26.0 pg (27-33); Mean Corpuscular Volume 81.6 fl (82-101); Nucleated Red Blood Cells % 0 %; Platelet Count 175 10^3/cmm (157-399); Red Blood Count 5.70 10^6/uL (3.85-5.65); White Blood Count 6.93 10^3/uL (3.29-11.43)
--- OUTSIDE RECORDS SUMMARY | 2025-09-01 19:26 | XMS_ITS | Patient Health Record ---
Author Organization [facility] Address [address], [place] [id number] Care Team Providers Care Grant Manager Name Role Phone Sixto Gellerinder Primary Care Provider [phone] Allergies No Known Allergies Reason For Referral No Information Medications Medication SIG (Take, Route, Frequency, Duration) Notes Start Date End Date Status Linezolid 600 MG Tablet 1 tablet Orally every 12 hrs Active Albuterol Sulfate (2.5 MG/3ML) 0.083% Nebulization Solution 3 ml as needed Inhalation every 6 hrs Active Eliquis 5 MG Tablet 1 tablet Orally twice a day; Duration: 30 days Active Lantus 100 UNIT/ML Solution give 15 units Subcutaneous daily; Duration: 30 days E11.65-- QUANTITY = 2 PENS 07/02/2024 Active Albuterol Sulfate HFA 108 (90 Base) MCG/ACT Aerosol Solution 2 puffs as needed Inhalation every 6 hrs 11/15/2020 Active Vitamin B-1 100 MG Tablet 1 tablet Orally Once a day Active Budesonide-Formoterol Fumarate 160-4.5 MCG/ACT Aerosol 2 puffs Inhalation Twice a day Active metFORMIN HCl 500 MG Tablet 1 tablet with a meal Orally 2 times a day; Duration: 90 days need refill Active Minocycline HCl 100 MG Capsule 1 capsule Orally Once a day Active Pen [place] 30G X 5 MM Miscellaneous 1 needle once a day; Duration: 30 days 07/26/2020 Active Spironolactone 25 MG Tablet 0.5 tablet Orally Once a day; Duration: 90 days refill Active Furosemide 40 MG Tablet 1 tab Orally Once a day; Duration: 30 days Not-Taking/P RN Atorvastatin Calcium 10 MG Tablet 1 tablet Orally Once a day; Duration: 90 days Active Metoprolol Succinate ER 100 MG Tablet Extended Release 24 Hour TAKE 1/2 TABLET BY MOUTH TWICE DAILY; Duration: 90 Active Entresto 24-26 MG Tablet 1 tablet Orally Twice a day; Duration: 30 days Active Potassium Chloride ER 10 MEQ Capsule Extended Release TAKE 1 CAPSULE BY MOUTH DAILY WITH FOOD; Duration: 90 needs refill Active Jardiance 10 MG Tablet 1 tablet Orally Once a day; Duration: 30 days needs refill Active Plavix 75 MG Tablet 1 tablet Orally Once a day Not-Taking/P RN Immunizations Vaccine Route Administration Date Status Comme nts Twinrix adult (Hep A and Hep B) IM Intramuscular 10/28/2013 Administered Social History Tobacco Use: Social History Observation Description Date Details (start date - stop date) Current Smoker NA - NA Sex Assigned At : Social History Observation Description Sex Assigned At Male Social History General Social Info Question Answer Notes Adult Employment 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 Yes Domestic Violence Do you or anyone in your household feel that they are in an unsafe situation? No Updated by Estefany Vargas MA 08/19/2024 Tobacco Use: Social Info Question Answer Notes Tobacco Control (Standard) Tobacco use: Current smoker How often do you smoke cigarettes? Every day How many cigarettes a day do you smoke? 5 or less How soon after you wake up do you smoke your first cigarette? 31-60 minutes Are you interested in quitting? 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.4) Active confirmed Problem Alcohol abuse (69817627) Alcohol abuse (F10.10) Active confirmed Problem Tobacco abuse (6579064613) Tobacco abuse (Z72.0) Active confirmed Problem Essential hypertension (54238803) Essential hypertension (I10) Active confirmed Problem Type 2 diabetes mellitus with other specified complication (E11.69) Active confirmed Problem Varicose ulcer of right calf (disorder) (423737313022372 08) 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) Active confirmed Problem 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 (I83.019) Active confirmed Problem Varicose ulcer of left calf (disorder) (375837871704739 08) Varicose veins of left 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) Active confirmed Problem Varicose ulcer of left lower leg (disorder) (400821441032859 03) Varicose veins of left lower extremity with ulcer of unspecified site (I83.029) Active confirmed Problem Skin ulcer of calf (893992081) 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) Active confirmed Problem Skin ulcer of calf (932402518) Non-pressure chronic ulcer of left calf with unspecified severity (L97.229) Active confirmed Problem Chronic non-pressure ulcer of calf extending to fat level (041373860037366 01) Non-pressure chronic ulcer of unspecified part of right lower leg with unspecified severity (L97.919) Active confirmed Problem Chronic ulcer of lower extremity (disorder) (34406073) Non-pressure chronic ulcer of unspecified part of left lower leg with unspecified severity (L97.929) Active confirmed Problem COPD - Chronic obstructive pulmonary disease (81062855) Chronic obstructive pulmonary disease, unspecified COPD type (J44.9) Active confirmed Problem Chronic combined systolic and diastolic heart failure (319124555712980 ) 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) Active confirmed Problem Embolism from thrombosis of vein of lower extremity (007715917) Deep vein thrombosis (DVT) of lower extremity, unspecified chronicity, unspecified laterality, unspecified vein (I82.409) Active confirmed Plan Of Treatment No Information Insurance Providers Payer Name Payer Address Payer Phone Subscriber Number Group Number Insured Name Patient Relationship to Insured Coverage Start Date Coverage End Date [facility] [address] [place], [place] [phone] [id number] Andrew Ruggiero Self - patient is the insured 1 Medical (General) History Medical History History ICD Code Chronic LE wounds Hypertension Combined systolic and diastolic heart fa ilure Diabetes mellitus Hospitalization History Reason Date(Month/Year) [facility]-chest pain and dizziness 03/26/24 heart failure 07/13/2020 [facility] right foot 08/28/2013
--- OUTSIDE RECORDS SUMMARY | 2025-09-01 19:26 | XMS_ITS | Clinical Summary ---
Author Organization [employer] Address [address] [facility] Attn: [place] [address] Care Team Providers Care Farmworker Field Crop Name Role Phone Bhupinder Brooks MD Primary [...] 06/12/20 25 Active naloxone (NARCAN) 4 mg/spray [place], Non-Aerosol EMERGENCY USE ONLY: Administer 1 spray [...] Encounters Date Type Department Care Team Description 06/02/2025 1:38 PM CDT - 06/13/2025 6:42 PM CDT Hospital Encounter [facility] [address] [place] [address] [phone] Larry Cunningham MD Osteomyelitis of left foot (CMS/HCC) Discharge Disposition: Home or Self Care 06/02/2025 Travel from Last 3 Months Social History Tobacco Use Types Packs/Day Years Used Date Smoking Tobacco: Every Day Cigarettes 1 6.9 Started: 2018 Smokeless Tobacco: Never Tobacco Cessation:Ready [...] on file Legal Sex Male 6:31 AM TRAN[employer]ORTATION [employer] Gender Identity Not on file Sexual Orientation [...] of 3 - 19+ 3-dose series) 1985 DTAP/TDAP/TD VACCINES (1 - Tdap) 12/17/1993 [...] of23 resultswithin the time period is included. [facility] Signature GLUCOSE POC 129(H) 74 - 99 mg/dL 06/13/2025 5:38 PM CDT [facility] SPECIMEN SOURCE, GLUCOSE POC Whole Blood 06/13/2025 5:38 PM CDT [facility] Blood, whole 06/13/2025 5:38 PM CDT 06/13/2025 6:32 PM CDT us Larry Cunningham MD POINT OF CARE TESTING Final Res ult [facility] CLIA# [id number] [address] [place] [address], * PROCEDURE REPORT (06/12/2025 12:01 PM CDT) us Provider Scanning PROCEDURE/MINOR SURGICAL ORDER SANDOVAL Final Result * (ABNORMAL) CBC WITH DIFFERENTIAL (06/10/2025 5:38 AM CDT) Only the most recent of2 resultswithin the time period is included. WBC 6.0 4.8 - 10.8 K/uL 06/10/2025 8:10 AM [facility] RBC 4.86 4.60 - 6.20 M/uL 06/10/2025 8:10 AM [facility] HEMOGLOBIN 12.7(L) 14.0 - 18.0 g/dL 06/10/2025 8:10 AM [facility] HEMATOCRIT 39.8(L) 41.0 - 53.0 % 06/10/2025 8:10 AM [facility] MCV 81.9(L) 84.0 - 103.0 fL 06/10/2025 8:10 AM [facility] MCH 26.1(L) 31.0 - 37.0 pg 06/10/2025 8:10 AM [facility] MCHC 31.9 30.0 - 35.0 g/dL 06/10/2025 8:10 AM [facility] RDW 15.0(H) 11.0 - 14.5 % 06/10/2025 8:10 AM CDT [facility] RDW-STDEV 43.8 37.0 - 54.0 fL 06/10/2025 8:10 AM CDT [facility] PLATELETS 356 140 - 440 K/uL 06/10/2025 8:10 AM CDT [facility] MPV 10.8 8.9 - 12.8 fL 06/10/2025 8:10 AM CDT [facility] NEUTROPHILS 58 42 - 75 % 06/10/2025 8:10 AM CDT [facility] LYMPHOCYTES 30 24 - 44 % 06/10/2025 8:10 AM CDT [facility] MONOCYTES 9 2 - 10 % 06/10/2025 8:10 AM CDT [facility] EOSINOPHILS 2 0 - 7 % 06/10/2025 8:10 AM CDT [facility] BASOPHILS 1 0 - 1 % 06/10/2025 8:10 AM CDT [facility] IMMATURE GRANULOCYTES 0 0 - 2 % 06/10/2025 8:10 AM CDT [facility] NEUTROPHIL ABSOLUTE 3.50 2.00 - 8.00 K/uL 06/10/2025 8:10 AM CDT [facility] LYMPHOCYTE ABSOLUTE 1.80 1.20 - 4.00 K/uL 06/10/2025 8:10 AM CDT [facility] MONOCYTE ABSOLUTE 0.51 0.10 - 0.60 K/uL 06/10/2025 8:10 AM CDT [facility] EOSINOPHIL ABSOLUTE 0.13 0.00 - 0.70 K/uL 06/10/2025 8:10 AM CDT [facility] BASOPHILS ABSOLUTE 0.04 0.00 - 0.20 K/uL 06/10/2025 8:10 AM CDT [facility] IMMATURE GRANULOCYTES ABSOLUTE 0.02 0.00 - 0.10 K/uL 06/10/2025 8:10 AM CDT [facility] Blood BLOOD SPECIMEN / Unknown Venipuncture / Unknown 06/10/2025 5:38 AM CDT 06/10/2025 7:40 AM CDT us Jamila Gamez ANP HEMATOLOGY ORDERABLES Poornima amy Result [facility] #[id number] [address] [place] [address] * (ABNORMAL) COMPREHENSIVE METABOLIC PANEL (06/10/2025 5:23 AM CDT) Only the most recent of2 resultswithin the time period is included. SODIUM 135(L) 136 - 145 mmol/L 06/10/2025 7:59 AM CDT [facility] POTASSIUM 4.2 3.5 - 5.1 mmol/L 06/10/2025 7:59 AM CDT [facility] CHLORIDE 102 98 - 107 mmol/L 06/10/2025 7:59 AM CDT [facility] CO2 22 22 - 29 mmol/L 06/10/2025 7:59 AM CDT [facility] CALCIUM 9.4 8.6 - 10.0 mg/dL 06/10/2025 7:59 AM CDT [facility] BUN 16 6 - 20 mg/dL 06/10/2025 7:59 AM CDT [facility] CREATININE 0.99 0.67 - 1.17 mg/dL 06/10/2025 7:59 AM T [facility] GLUCOSE 115(H) 74 - 99 mg/dL 06/10/2025 7:59 AM T [facility] TOTAL PROTEIN 8.7 6.6 - 8.7 g/dL 06/10/2025 7:59 AM T [facility] ALBUMIN 3.7 3.5 - 5.2 g/dL 06/10/2025 7:59 AM T [facility] BILIRUBIN TOTAL 0.5 0.0 - 1.2 mg/dL 06/10/2025 7:59 AM T [facility] ALKALINE PHOSPHATASE 112 40 - 129 U/L 06/10/2025 7:59 AM T [facility] AST 50 0 - 50 U/L 06/10/2025 7:59 AM T [facility] ALT 53(H) 0 - 50 U/L 06/10/2025 7:59 AM T [facility] GFR >60 >=60 mL/min/1.7 3 sq meter 06/10/2025 7:59 AM [facility] Comment:eGFR calculated with 2020 CKD-EPI equation. Vegetarian diet, extremely high or low muscle mass, and may affect results. Cystatin C with Glomerular Filtration Rate is a suitable alternative for these patients. ANION GAP 11 5 - 20 mmol/L 06/10/2025 7:59 AM T [facility] Blood BLOOD SPECIMEN / Unknown Venipuncture / Unknown 06/10/2025 5:23 AM CDT 06/10/2025 7:42 AM CDT us Jamila Gamez ANP CHEMISTRY ORDERABLES Final Result [facility] CLIA #[id number] [address] [place] [address] * (ABNORMAL) HEMOGLOBIN A1C (06/03/2025 2:15 PM CDT) HEMOGLOBIN A1C 7.2(H) <=5.6 % 06/05/2025 11:39 AM CDT [facility] EST. AVG GLUCOSE, A1C 160 mg/dL 06/05/2025 11:39 AM CDT [facility] Blood Venipuncture / Unknown 06/03/2025 2:15 PM CDT 06/03/2025 6:50 PM CDT Narrative [facility] - 06/05/2025 11:39 AM CDT HGB A1C INTERPRETATION NORMAL: <5.7% PRE-DIABETES: 5.7 - 6.4% DIABETES: 6.5% OR GREATER Holly Max MD CHEMISTRY ORDERABLES Poornima reyes Result [facility] [employer] [facility] CLIA # [id number] [address] [address] [place] [address] from Last 3 Months Insurance MEDICAID [place] Advance Directives For more information, please contact: [phone] * Full Code (Latest Code Status on File) Date Activated Date Inactivated Comments 06/02/2025 1:42 PM 06/13/2025 8:48 PM Care Teams Farmworker Field [employer] Relationship Specialty Start Date End Date Bhupinder Brooks MD [address] [place] [address] PCP - General 12/30/07
[2025-09-01 20:04] LABS: Alanine Aminotransferase 24 U/L (0-41); Albumin Level 4.1 g/dL (3.5-5.2); Alkaline Phosphatase 124 U/L (40-130); Anion Gap 19.8 (5-19); Aspartate Amino Transferase 20 U/L (0-40); Blood Urea Nitrogen 12 mg/dL (6-20); Calcium 9.2 mg/dL (8.5-10.5); Carbon Dioxide 21 mmol/L (22-29); Chloride 102 mmol/L (98-107); Globulin 4.5 g/dL (1.3-4.6); Glucose 130 mg/dL (65-115); Osmolality Calculated 290 mOsm/kg (285-295); Potassium 3.8 mmol/L (3.5-5.1); Sodium 139 mmol/L (136-145); Total Protein 8.6 g/dL (6.6-8.7)
--- NOTE | 2025-09-01 20:33 | ED_ITS ---
HPI - General Adult 2 General: Chief complaint: General Medical Stated complaint: Left Leg Pain Time Seen by Provider: 09/01/25 20:15 History of Present Illness: 59-year-old man with a history of left B KA done by Dr. Yun back in May, tobacco dependence, congestive heart failure, type 2 diabetes, alcohol dependence, neuropathy, coronary artery disease, atrial fibrillation, chronic anticoagulation on Eliquis, hypertension who presents emergency room with left BKA pain, redness and foul odor. He has not been to wound clinic recently. He says over the last few days its become much more red and painful. No systemic fevers. No altered mental status. No chest pain. No abdominal pain. No vomiting Related Data Home Medications ?Medication ?Instructions ?Recorded ?Confirmed acetaminophen 325 mg tablet 650 mg PO QID PRN Pain 08/27/25 (Tylenol) Previous Rx's ?Medication ?Instructions ?Recorded aspirin 81 mg tablet,delayed 81 mg PO DAILY #90 tabs 0 01/07/25 release spironolactone 25 mg tablet 12.5 mg (1/2 x 25 mg) PO D AILY #90 01/07/25 tabs thiamine HCl (vitamin B1) 100 mg 100 mg PO DAILY #90 t abs 01/08/25 tablet multivitamin with folic acid 400 1 tab PO DAILY #30 ta bs 02/01/25 mcg tablet (Thera) insulin lispro 100 unit/mL See Rx Instructions .Route 06/02/25 subcutaneous solution (Humalog .COMPLEX #10 mL U-100 Insulin) oxycodone-acetaminophen 5 mg-325 1 tab PO BID PRN pain 7 days #28 06/25/25 mg tablet (Percocet) tabs apixaban 5 mg tablet (Eliquis) See Rx Instructions .Ro [place] 08/24/25 .COMPLEX #60 tabs empagliflozin 10 mg tablet See Rx Instructions .Route 08/24/25 (Jardiance) .COMPLEX #30 tabs folic acid 1 mg tablet See Rx Instructions .Route 1 10/25/24 .COMPLEX #30 tabs metoprolol succinate 25 mg See Rx Instructions .Route 08/24/25 tablet,extended release 24 hr .COMPLEX #30 tabs Allergies Allergy/AdvReac Type Severity Reaction Status Date / Time No Known Allergies Allergy Verified 06/25/25 13:59 Review of Systems 2 Narrative: Constitutional symptoms: Negative except as documented in HPI. Skin symptoms: Negative except as documented in HPI. Eye symptoms: Negative except as documented in HPI. ENMT symptoms: Negative except as documented in HPI. Respiratory symptoms: Negative except as documented in HPI. Cardiovascular symptoms: Negative except as documented in HPI. Gastrointestinal symptoms: Negative except as documented in HPI. Genitourinary symptoms: Negative except as documented in HPI. Musculoskeletal symptoms: Negative except as documented in HPI. Neurologic symptoms: Negative except as documented in HPI. Psychiatric symptoms: Negative except as documented in HPI. Endocrine symptoms: Negative except as documented in HPI. PFSH ED 2 PFSH: Medical History (Updated 09/01/25 @ 21:43 by Kay Thomas MD) Tobacco use disorder Heart failure with mildly reduced ejection fraction (HFmrEF) Elevated blood pressure reading with diagnosis of hypertension Alcoholism with alcohol dependence Diabetes type 2, controlled Neuropathy History of non-ST elevation myocardial infarction (NSTEMI) Peripheral vascular disease Chronic atrial fibrillation Primary hypertension CHF (congestive heart failure) LVEF 64% 01/30/2025 Surgical History Hx of umbilical hernia repair 07/05/23 lap repair of umbilical hernia with mesh- Dr Obrien History of implantable cardioverter-defibrillator (ICD) placement Family History Mother CAD (coronary artery disease) Social History Smoking and tobacco/nicotine status: current every day tobacco/nicotine user cigarettes [ Other cigarette details: 1.5 pack per day x 40 years, currently down to 3-4 cig/day] Alcohol intake: current Alcohol intake frequency: 3 or more drinks per day Alcohol type: beer Substance/Drug Use: former Date of last use: marijuana in 2021 Household members: children Marital status: Single Number of children: 2 Number of grandchildren: 0 Current occupational status: disabled Special duc needs: No Agree to transfusion: Yes Physical Exam 2 Narrative: EXAM NARRATIVE: General: Alert, no acute distress. Skin: Warm, dry. Head: Normocephalic, atraumatic. Neck: Supple, trachea midline. Eye: Extraocular movements are intact. Ears, nose, mouth and throat: mucosa moist. Cardiovascular: Regular, Normal peripheral perfusion. Respiratory: Lungs are clear to auscultation, respirations are non-labored, breath sounds are equal, Symmetrical chest wall expansion. Gastrointestinal: Soft, Nontender, Non distended Musculoskeletal: Normal ROM, left BKA with wound as below. Does have a bit of a foul odor Neurological: Alert and oriented, No focal neurological deficit observed. Psychiatric: Cooperative, appropriate mood & affect. Course 2 Vital Signs: Vital signs: Vital Signs Temperature 98.0 F 09/01/25 18:31 Pulse Rate 82 09/01/25 18:31 Respiratory Rate 18 09/01/25 18:31 Blood Pressure 117/81 09/01/25 21:04 Pulse Oximetry 96 09/01/25 21:04 Oxygen Delivery Me thod Room Air 09/01/25 18:31 MDM - General Adult Medical Decision Making Medical decision making Patient's reason for coming to the emergency room: BKA pain and possible infection Social determinants: Patient is disabled. He tells nursing later that the reason he has not been to wound clinic is because he has bedbugs. I reviewed the patient's medical record. 59-year-old man with a history of left BKA done by Dr. Yun back in May, tobacco dependence, congestive heart failure, type 2 diabetes, alcohol dependence, neuropathy, coronary artery disease, atrial fibrillation, chronic anticoagulation on Eliquis, hypertension. Cultures from the wound in June showed Pseudomonas that was sensitive to cefepime and I am pending. I reviewed the patient's current home meds Patient is on Eliquis. Insulin-dependent diabetic. Alternate historians: None Differential diagnosis: including but not limited to and based on the above HPI, review of systems and physical exam: Concern for osteomyelitis, wound infection, sepsis, bacteremia, orders placed to evaluate differential diagnosis based on the above differential, HPI and physical exam Lab Review: Laboratory results were reviewed and interpreted by myself the emergency room physician. No leukocytosis. Mild CRP elevation. Moderate elevation of ESR. X-ray of the left tibia and fibula. Below the knee amputation the air communicating between the anterior skin and the bony stump which may be an open sinus tract. This was reviewed and interpreted by myself the emergency room physician. I also reviewed the radiology report. Assessment of risk: Level of risk: High risk patient. Multiple comorbidities. Hospitalization considerations: Patient is being admitted. Ortho will see him in the morning. This may not need surgery and may be a chronic thing and just needs antibiotics for cellulitis but may also need further revision. Reexamination: Patient remained stable. No increased work of breathing. No altered mental status. No focal motor deficits. Consultation: I spoke with Dr. Contreras who is on-call for orthopedics. He recommends admission to the hospitalist service in consultation to Court the morning. Consultation: I spoke with Dr. Yun. He is not on-call but he is familiar with the patient. He will see the patient tomorrow. He agrees with admission to the hospitalist service. Consultation: I spoke with Dr. Alexander who is on-call with the hospital service who agrees to admission. Assessment and plan: Wound infection Possible osteomyelitis ?Vancomycin and cefepime. Reviewed cultures from June. No signs of sepsis at this time. Again he may just need antibiotics for skin infection but needs evaluation by orthopedics and some IV antibiotics initially. -I discussed the patient with the hospitalist on-call who is admitting the patient. - Discussed findings and plan with patient. Answered any questions. - All laboratory values were reviewed and interpreted personally by myself, the ER physician - All imaging was reviewed and interpreted personally by myself, the ER physician. - Evaluation and treatment of this problem were appropriate in the emergency setting Lab Data 09/01/25 18:53 09/01/25 18:53 Radiology Impressions Tibia/Fibula X-Ray 09/01/25 20:42 IMPRESSION: Kqlfe-nxk-zoys amputation stump demonstrates air communicating between the anterior skin surface in the bony stump, which may represent a open sinus tract. COMMENTS: If symptoms persist or progress, or if there is a high clinical index of suspicion for amputation stump osteomyelitis, follow-up nonurgent MRI could be considered. Laboratory Results WBC 6.93 10^3/uL (3.29-11.43) 09/01/25 18:53 RBC 5.70 10^6/uL (3.85-5.65) H 09/01/25 18:53 Hgb 14.80 g/dL (11.27-16.99) 09/01/25 18:53 Hct 46.5 % (37-53) 09/01/25 18:53 MCV 81.6 fl (82-101) L 09/01/25 18:53 MCH 26.0 pg (27-33) L 09/01/25 18:53 MCHC 31.8 g/dL (30-55) 09/01/25 18:53 RDW 14.5 % (12.1-15.1) 09/01/25 18:53 Plt Count 175 10^3/cmm (157-399) 09/01/25 18:53 MPV 10.2 fL (7.4-10.4) 09/01/25 18:53 Neut % (Auto) 49.7 % 09/01/25 18:53 Lymph % (Auto) 38.1 % 09/01/25 18:53 Morgan % (Auto) 7.5 % 09/01/25 18:53 Eos % (Auto) 3.8 % 09/01/25 18:53 Baso % (Auto) 0.6 % 09/01/25 18:53 Neut # (Auto) 3.45 10^3/uL (1.8-7.7) 09/01/25 18:53 Lymph # (Auto) 2.6 10^3/uL (0.8-4.8) 09/01/25 18:53 Morgan # (Auto) 0.5 10^3/uL (0.2-0.9) 09/01/25 18:53 Eos # (Auto) 0.3 10^3/uL (0.0-0.8) 09/01/25 18:53 Baso # (Auto) 0.0 10^3/uL (0.0-0.1) 09/01/25 18:53 Nucleated RBC % (auto) 0 % 09/01/25 18:53 Nucleated RBCs # 0.0 /100WBC 09/01/25 18:53 ESR 53 mm/hr (0-10) H 09/01/25 18:53 Sodium 139 mmol/L (136-145) 09/01/25 18:53 Potassium 3.8 mmol/L (3.5-5.1) 09/01/25 18:53 Chloride 102 mmol/L (98-107) 09/01/25 18:53 Carbon Dioxide 21 mmol/L (22-29) L 09/01/25 18:53 Anion Gap 19.8 (5-19) H 09/01/25 18:53 BUN 12 mg/dL (6-20) 09/01/25 18:53 Creatinine 0.9 mg/dL (0.7-1.2) 09/01/25 18:53 GFR Calculation 86.7 mL/min (90-130) L 09/01/25 18:53 Glucose 130 mg/dL (65-115) H 09/01/25 18:53 Calculated Osmolality 290 mOsm/kg (285-295) 09/01/25 18:53 Calcium 9.2 mg/dL (8.5-10.5) 09/01/25 18:53 Total Bilirubin 0.3 mg/dL (0.15-1.2) 09/01/25 18:53 AST 20 U/L (0-40) 09/01/25 18:53 ALT 24 U/L (0-41) 09/01/25 18:53 Alkaline Phosphatase 124 U/L (40-130) 09/01/25 18:53 C-Reactive Protein 11.1 mg/L (0.0-4.9) H 09/01/25 18:53 Total Protein 8.6 g/dL (6.6-8.7) 09/01/25 18:53 Albumin 4.1 g/dL (3.5-5.2) 09/01/25 18:53 Globulin 4.5 g/dL (1.3-4.6) 09/01/25 18:53 All radiology interpretation(s) finalized by discharge Discharge Plan Discharge Patient Disposition: Admitted As Inpatient Clinical Impression: Wound infection Condition: Stable Coding Level of Care Code ED [employer] Hel[employer] for Cecily Wood
--- NOTE | 2025-09-01 20:42 | XRR_ITS ---
PROCEDURE INFORMATION: Exam: XR Left Tibia and Fibula Exam date and time: 09/01/2025 8:46 PM Age: 59 years old Clinical indication: Pain; Lower leg; Left; Prior surgery; Surgery date: 1-6 months; Surgery type: Partial amputation red swollen; Additional info: Possible osteo TECHNIQUE: Imaging protocol: Radiologic exam of the left tibia and fibula. Views: 2 views. Total images: 408 COMPARISON: No relevant prior studies available. FINDINGS: Bones/joints: Cdeye-uti-ozol amputation stump demonstrates air communicating between the anterior skin surface in the bony stump, which may represent a open sinus tract. Chronic periosteal reaction noted about the remnant tibia and fibula. Knee mild tricompartment osteoarthritis. Soft tissues: No radiopaque foreign body. XR/XR tibia fibula LT 2V [id number] IMPRESSION: Wwjbs-hmd-usqv amputation stump demonstrates air communicating between the anterior skin surface in the bony stump, which may represent a open sinus tract. COMMENTS: If symptoms persist or progress, or if there is a high clinical index of suspicion for amputation stump osteomyelitis, follow-up nonurgent MRI could be considered.
[2025-09-01 21:04] VITALS: BP 117/81; O2SAT 96
[2025-09-01] MEDS: cefepime 2,000 mg SDV 2000 MG IVP (21:40)
[2025-09-01 22:11] VITALS: BP 119/75; PULSE 73; RESP 17; O2SAT 97
[2025-09-01 22:38] VITALS: BP 138/96; PULSE 82; RESP 17; TEMP 36.8; O2SAT 97
--- NOTE | 2025-09-01 23:36 | P.HP_ITS ---
Providers/Chief Complaint 2 Admitting Physician: Alfonso Napier MD Primary Care Provider: Oliver Dempsey MD Chief Complaint: Left Leg Pain History of Present Illness Andrew Ruggiero is a 59 year old male with history of left lower extremity diabetic lower leg infection ultimately requiring left BKA May 30, 2025. Patient had had chronic nonhealing wounds of the left lower extremity which had grown Pseudomonas, strep agalactiae, Enterobacter erogenous and MRSA. The patient comes in today after missing wound care appointments with Dr. Swartz due to possibility of bedbugs. He had his last visit with wound care on . His niece whose age 30 and stay at home changed his dressing on Sunday and was going to change it today but Kennedy felt that it had become infected and she encouraged him to go to the hospital. Patient has a wound culture from 07/06/2025 growing Pseudomonas aeruginosa. He states that he lives at home with niece who is age 30s and her children ages 12, 13, 15 and 16. No one else has had itching or signs of bedbugs. Review of Systems 2 Narrative: General Positive for sore throat no fevers or chills Cardiovascular positive for chest pain but he takes metoprolol for this has not taken any nitroglycerin denies history of [place] Respiratory positive for cough with white mucus smokes 5 cigarettes a day previously was 1.5 packs/day but a year ago GI no nausea vomiting diarrhea he has had constipation has bowel movements 1-2 times a week sometimes has to strain history of DVTs left leg treated with IVC filter placed by Dr. Sue 05/29/2025. Neuro no seizures strokes Malignancy history negative for cancer Medications/Allergies Home Medications ?Medication ?Instructions ?Recorded ?Confirmed ?Last Taken ?Type acetaminophen 325 mg tablet 650 mg PO QID PRN Pain 08/27/25 02/24/25 History (Tylenol) aspirin 81 mg tablet,delayed 81 mg PO DAILY #90 tabs 0 01/07/25 08/27/25 05/25/25 Rx release spironolactone 25 mg tablet 12.5 mg (1/2 x 25 mg) PO D AILY #90 01/07/25 08/27/25 05/25/25 Rx tabs thiamine HCl (vitamin B1) 100 mg 100 mg PO DAILY #90 t abs 01/08/25 08/27/25 05/25/25 Rx tablet multivitamin with folic acid 400 1 tab PO DAILY #30 ta bs 02/01/25 08/27/25 05/25/25 Rx mcg tablet (Thera) insulin lispro 100 unit/mL See Rx Instructions .Route 06/02/25 08/27/25 Unknown Rx subcutaneous solution (Humalog .COMPLEX #10 mL U-100 Insulin) oxycodone-acetaminophen 5 mg-325 1 tab PO BID PRN pain 7 days #28 06/25/25 08/27/25 Unknown Rx mg tablet (Percocet) tabs apixaban 5 mg tablet (Eliquis) See Rx Instructions .Ro [place] 08/24/25 08/27/25 Unknown Rx .COMPLEX #60 tabs empagliflozin 10 mg tablet See Rx Instructions .Route 08/24/25 08/27/25 Unknown Rx (Jardiance) .COMPLEX #30 tabs folic acid 1 mg tablet See Rx Instructions .Route 1 10/25/24 08/27/25 Unknown Rx .COMPLEX #30 tabs metoprolol succinate 25 mg See Rx Instructions .Route 08/24/25 08/27/25 Unknown Rx tablet,extended release 24 hr .COMPLEX #30 tabs Allergies Allergy/AdvReac Type Severity Reaction Status Date / Time No Known Allergies Allergy Verified 06/25/25 13:59 PFSH Acute 2 PFSH: Medical History (Updated 09/01/25 @ 21:43 by Kay Thomas MD) Tobacco use disorder Heart failure with mildly reduced ejection fraction (HFmrEF) Elevated blood pressure reading with diagnosis of hypertension Alcoholism with alcohol dependence Diabetes type 2, controlled Neuropathy History of non-ST elevation myocardial infarction (NSTEMI) Peripheral vascular disease Chronic atrial fibrillation Primary hypertension CHF (congestive heart failure) LVEF 64% 01/30/2025 Surgical History Hx of umbilical hernia repair 07/05/23 lap repair of umbilical hernia with mesh- Dr bOrien History of implantable cardioverter-defibrillator (ICD) placement Family History Mother CAD (coronary artery disease) Social History (Updated 09/01/25 @ 23:46 by Alfonso Napier MD) Smoking and tobacco/nicotine status: current every day tobacco/nicotine user cigarettes Number of cigarettes per day: 6-10 [ Other cigarette details: 1.5 pack per day x 40 years, currently down to 3-4 cig/day] Alcohol intake: former Year of sobriety/quit date alcohol: 2024 Former alcohol use details: Stopped for 4 months as of 09/01/2025 Substance/Drug Use: former Date of last use: marijuana in 2021 Additional social history: Patient was full code as discussed with Alfonso Napier MD on 09/01/2025 Household members: children Marital status: Single Number of children: 2 Number of grandchildren: 0 Current occupational status: disabled Special duc needs: No Agree to transfusion: Yes Vitals/I&O/Wt Last Vital Signs Temp 98.0 F 09/01/25 18:31 Pulse 73 09/01/25 22:11 Resp 17 09/01/25 22:11 BP 119/75 09/01/25 22:11 Pulse Ox 97 09/01/25 22:11 O2 Del Method Room Air 09/01/25 23:19 Weight last 48 hrs Weight 80.059 kg Physical Exam 2 Narrative: General Well-developed male in no acute cardiopulmonary stress CV regular rate and rhythm without loud murmurs Lungs clear to auscultation bilaterally no rales or wheeze Abdomen positive bowel tones soft nontender Calves right calf trace to 1+ edema. There is scarring from previous ulceration now healed and he is wearing compression hose. Left BKA stump with nonhealing incisional wounds see images from Dr. Thomas Skin warm and dry Data 09/01/25 18:53 09/01/25 18:53 A&P Assessment and plan 1. Wound infection: Patient with wound infected with Pseudomonas aeruginosa. Tib-fib x-ray shows air communication between anterior surface of the bony stump to the air wound. This likely represents osteomyelitis with additional findings of periosteal reaction and positive wound culture 07/06/2025 with Pseudomonas. Anticipate that this will need surgical intervention and Dr. Thomas contacted Dr. Yun and Dr. Contreras. Dr. Yun was the primary orthopedic surgeon performing the left BKA and May and plans to see the patient in the morning. I have held apixaban pending possible surgical washout, revision or additional amputation 2. Status post below-knee amputation of left lower extremity: As above patient with chronic multi organism infected left lower extremity diabetic ulcer with bone showing May 26, 2025 underwent left BKA but now showing signs of Pseudomonas infection 3. Chronic osteomyelitis: Will order CT scan of the left stump for the morning with contrast. He is not a good candidate for MRI due to having a pacemaker 4. Diabetes type 2, controlled: Start sliding scale insulinLow scale low scale continue diabetic diet 5. ICD (implantable cardioverter-defibrillator) in place: Patient states he has palpitations at times has not had recent defibrillator firing PDMP PDMP Reviewed: Not Reviewed Attestations 2 Medical Necessity Statement*: Patient mid to the hospital with suspected osteomyelitis of the left BKA stump and will undergo CT scan with contrast as well as consultation with orthopedics for possible surgical intervention and will start off on observation and potential discharge prior to 2 midnights Coding Level of Care Code 94771 Diagnoses Wound infection T14.8XXA; L08.9 Status post below-knee amputation of left lower extremity Z89.512 Chronic osteomyelitis M86.60 Diabetes type 2, controlled E11.9 ICD (implantable cardioverter-defibrillator) in place Z95.810 Time Spent (min) 55
[2025-09-01 23:38] VITALS: RESP 18
[2025-09-01] MEDS: oxyCODONE-APAP 5-325 mg Tablet 1 TAB PO (23:38)
[2025-09-02] VITALS (8 sets, daily range): BP systolic 105–138; BP diastolic 68–96; PULSE 70–90; RESP 16–18; TEMP 36.4–36.8; O2SAT 90–98
--- NOTE | 2025-09-02 00:03 | CTR_ITS ---
PROCEDURE INFORMATION: Exam: CT Left Lower Extremity With Contrast Exam date and time: 09/02/2025 1:46 AM Age: 59 years old Clinical indication: Edema; Location not specified; Prior surgery; Surgery date: 6+ months; Surgery type: Bka; Additional info: Suspected osteomyelitis and abscess left bka stump, has a pacer defibrillator TECHNIQUE: Imaging protocol: CT of the left lower extremity with intravenous contrast was performed. Radiation optimization: All CT scans at this facility use at least one of these dose optimization techniques: automated exposure control; mA and/or kV adjustment per patient size (includes targeted exams where dose is matched to clinical indication); or iterative reconstruction. Contrast material: OMNI 350; Contrast volume: 90 ml; Contrast route: INTRAVENOUS (IV); COMPARISON: CT lower leg LT con [id number] 05/27/2025 8:27 PM RADIATION DOSE METRICS: Total DLP (mGy-cm): 409.11 FINDINGS: Bones/joints: Below-knee amputation. Skin thickening and subcutaneous edema at the stump, with wound measuring approximately 1.3 cm deep. Correlate with physical exam. No drainable fluid collection or abscess. Periosteal new bone formation along the distal tibia and fibula stump, which may be secondary to chronic osteomyelitis. Consider MRI for further evaluation. Soft tissues: Atrophy of the calf musculature. Vasculature: Vascular calcifications. CT/CT lower leg w [facility] [id number] IMPRESSION: 1. Below-knee amputation. Skin thickening and subcutaneous edema at the stump, with wound measuring approximately 1.3 cm deep. Correlate with physical exam. No drainable fluid collection or abscess. 2. Periosteal new bone formation along the distal tibia and fibula stump, which may be secondary to chronic osteomyelitis. Consider MRI for further evaluation.
[2025-09-02] MEDS: iohexol 350 mg/mL 500 mL Btl (per mL) IV (01:55)
[2025-09-02] MEDS: DAPAGLIFLOZIN 5 MG TABLET PO (04:04)
[2025-09-02] MEDS: multivitamin therapeutic Tablet 1 TAB PO (04:04)
[2025-09-02] MEDS: metoprolol succinate ER (24 HR) 25 mg Tablet PO (04:04)
[2025-09-02] MEDS: cefepime 2,000 mg SDV 2000 MG IVP ×2 (09:17→21:19)
[2025-09-02 10:17] LABS: Hematocrit 45.1 % (37-53); Hemoglobin 14.40 g/dL (11.27-16.99); Mean Corpuscular HGB Conc 31.9 g/dL (30-55); Mean Corpuscular Hemoglobin 26.5 pg (27-33); Mean Corpuscular Volume 82.9 fl (82-101); Nucleated Red Blood Cells % 0 %; Platelet Count 166 10^3/cmm (157-399); Red Blood Count 5.44 10^6/uL (3.85-5.65); White Blood Count 9.59 10^3/uL (3.29-11.43)
--- NOTE | 2025-09-02 10:31 | P.PN_ITS ---
Vitals/I&O/Wt Last Vital Signs Temp 98.0 F 09/02/25 07:20 Pulse 81 09/02/25 07:20 Resp 18 09/02/25 07:20 BP 107/71 09/02/25 07:20 Pulse Ox 93 09/02/25 07:20 O2 Del Method Room Air 09/02/25 07:20 09/01/25 09/02/25 09/02/25 22:59 06:59 14:59 Intake Total 400 / 400 240 / 240 Output Total 500 / 500 Balance -100 / -100 240 / 240 Weight last 48 hrs Weight 78.925 kg Weight 77.111 kg Weight 80.059 kg Physical Exam 2 Narrative: General Well-developed male in no acute cardiopulmonary stress CV regular rate and rhythm without loud murmurs Lungs clear to auscultation bilaterally no rales or wheeze Abdomen positive bowel tones soft nontender Calves right calf trace to 1+ edema. There is scarring from previous ulceration now healed and he is wearing compression hose. Left BKA stump with nonhealing incisional wounds see images from Dr. Thomas Skin warm and dry Skin: OTHER: Data 09/02/25 09:27 09/02/25 09:27 Micro: Microbiology 09/02/25 09:27 Blood Culture - Preliminary Blood SPECIMEN COLLECTED A&P Assessment and plan 1. Wound infection: Patient with wound infected with Pseudomonas aeruginosa. Tib-fib x-ray shows air communication between anterior surface of the bony stump to the air wound. This likely represents osteomyelitis with additional findings of periosteal reaction and positive wound culture 07/06/2025 with Pseudomonas. Anticipate that this will need surgical intervention and Dr. Thomas contacted Dr. Yun and Dr. Contreras. Dr. Yun was the primary orthopedic surgeon performing the left BKA and May and plans to see the patient in the morning. I have held apixaban pending possible surgical washout, revision or additional amputation 2. Status post below-knee amputation of left lower extremity: As above patient with chronic multi organism infected left lower extremity diabetic ulcer with bone showing May 26, 2025 underwent left BKA but now showing signs of Pseudomonas infection 3. Chronic osteomyelitis: Will order CT scan of the left stump for the morning with contrast. He is not a good candidate for MRI due to having a pacemaker 4. Controlled type 2 diabetes mellitus with other circulatory complication, without long-term current use of insulin: Start sliding scale insulinLow scale low scale continue diabetic diet 5. ICD (implantable cardioverter-defibrillator) in place: Patient states he has palpitations at times has not had recent defibrillator firing 6. Primary hypertension: 7. Heart failure with improved ejection fraction (HFimpEF): 8. Chronic atrial fibrillation: 9. Peripheral vascular disease: 10. 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 Presence of IVC filter: Plan: Plan for the day: 59-year-old gentleman with past medical history of PAD, DVT post IVC filter placement, heart failure with improved ejection fraction, ICD, type 2 diabetes mellitus, hypertension, s/p left BKA in May/2025 presents to the ER today because of wound infection at stump site while he continues to follow-up with wound care as an outpatient with concerns for possible acute on chronic osteomyelitis Plan for the day: Appreciate past culture history with cultures being positive for Pseudomonas on 07/06 and in the past being positive for Pseudomonas, MRSA, Enterobacter, strep. For now continue with IV cefepime. Add vancomycin. Patient did receive vancomycin on admission. Orthopedic had been consulted from the ER. Discussed with Dr. Contreras who states Dr. Yun will follow-up with the patient. Eliquis on hold currently for possible surgical washout/revision or further amputation. For now we will consult ID for recommendations of antibiotics given multiple resistant bacteria's in the past. Depending on the OR plan patient might need up to 4 weeks of IV antibiotics. Complaining of mild tingling sensation at ICD. Will plan for soft tissue ultrasound of the ICD site to rule out collection. Check blood cultures. ICD interrogation. Patient currently euvolemic. Continue with home dose of amiodarone, metoprolol. Hold off on spironolactone for now. Watch for fluid overload. Full code Cardiac diet, n.p.o. perioperatively Eliquis on hold for DVT prophylaxis as patient might need to go to the OR. History of chronic DVT. Hold off on SCDs. The patient already has IVC filter. Protonix for PUD prophylaxis PDMP PDMP Reviewed: Not Reviewed Attestations 2 Medical Necessity Statement*: Requires further hospitalization for management of cellulitis, stump wound infection, congestive heart failure, ICD Diagnoses Wound infection T14.8XXA; L08.9 Status post below-knee amputation of left lower extremity Z89.512 Chronic osteomyelitis M86.60 Controlled type 2 diabetes mellitus with other circulatory complication, without long-term current use of insulin E11.9 ICD (implantable cardioverter-defibrillator) in place Z95.810 Primary hypertension I10 Hypertension type: primary hypertension Heart failure with improved ejection fraction (HFimpEF) I50.20 Chronic atrial fibrillation I48.20 Atrial fibrillation type: unspecified chronic Peripheral vascular disease I73.9 Chronic deep vein thrombosis (DVT) of femoral vein of left lower extremity I82.512 Affected thrombotic vein of extremity: femoral Chronicity: chronic Laterality: left Presence of IVC filter Z95.828
--- NOTE | 2025-09-02 10:35 | USR_ITS ---
PROCEDURE INFORMATION: Exam: US Left Limited Joint or Other Non-Vascular Extremity Structure Exam date and time: 09/02/2025 4:20 PM Age: 59 years old Clinical indication: Mass or lump; Other: Chest; Prior surgery; Surgery date: 3-7 days post-operative; Surgery type: Intracardiac defibrillator; Additional info: Icd pocket to R/O collection TECHNIQUE: Imaging protocol: US left limited joint or other nonvascular extremity structure. Real-time ultrasound with image documentation. Exam focused on the area of clinical interest. COMPARISON: US CV arterial duplex [facility] [id number] 02/28/2023 6:11 PM FINDINGS: Soft tissues: Unremarkable. No fluid collection in the area of interest. US/US soft tissue/extremity 61029 IMPRESSION: Unremarkable US.
[2025-09-02 10:48] LABS: Alanine Aminotransferase 17 U/L (0-41); Albumin Level 3.6 g/dL (3.5-5.2); Alkaline Phosphatase 113 U/L (40-130); Anion Gap 18.0 (5-19); Aspartate Amino Transferase 15 U/L (0-40); Blood Urea Nitrogen 13 mg/dL (6-20); Calcium 8.8 mg/dL (8.5-10.5); Carbon Dioxide 18 mmol/L (22-29); Chloride 103 mmol/L (98-107); Globulin 4.1 g/dL (1.3-4.6); Glucose 204 mg/dL (65-115); Iron 68 ug/dL (59-158); Osmolality Calculated 286 mOsm/kg (285-295); Potassium 4.0 mmol/L (3.5-5.1); Sodium 135 mmol/L (136-145); Total Iron Binding Capacity 331 mcg/dl; Total Protein 7.7 g/dL (6.6-8.7); Unsaturated Iron Binding 263 ug/dL (112-347)
[2025-09-02 11:01] LABS: Procalcitonin 2.21 ng/mL (0-0.5); Vitamin B12 414 pg/mL (232-1245)
--- NOTE | 2025-09-02 13:20 | P.CONIM_ITS ---
Providers/Reason For Consult 2 Consulting Physician/Specialty*: Darrian Yun DO/orthopedic surgery Reason for Consult*: Left below the knee amputation wound/drainage infection Requesting Physician: Dr. Thomas?ED Attending Physician: Ishan Cedeno MD Primary Care Provider: Oliver Dempsey MD History of Present Illness History of Present Illness Andrew Ruggiero is a 59 year old male who was admitted secondary to wound drainage and increased pain and localized erythema. Patient had a BKA done by co back on 05/30/2025. At this point in time he is actively been in wound care and getting this manage. Patient states there was some complaint of increased drainage as well as pain. Presented to the emergency department and was admitted by hospitalist orthopedics consulted for evaluation and treatment recommendations. At this point time seen evaluated patient on the floor. He is currently on antibiotics. Patient this point in time would like to hold off on any aggressive treatment from the standpoint of further amputations. Review of Systems 2 General: Reports: 10 or more systems reviewed and unremarkable except in HPI and below Medications/Allergies Home Medications ?Medication ?Instructions ?Recorded ?Confirmed ?Last Taken ?Type acetaminophen 325 mg tablet 650 mg PO QID PRN Pain 09/02/25 02/24/25 History (Tylenol) aspirin 81 mg tablet,delayed 81 mg PO DAILY #90 tabs 0 01/07/25 09/02/25 09/01/25 Rx release spironolactone 25 mg tablet 12.5 mg (1/2 x 25 mg) PO D AILY #90 01/07/25 09/02/25 09/01/25 Rx tabs thiamine HCl (vitamin B1) 100 mg 100 mg PO DAILY #90 t abs 01/08/25 09/02/25 09/01/25 Rx tablet multivitamin with folic acid 400 1 tab PO DAILY #30 ta bs 02/01/25 09/02/25 09/01/25 Rx mcg tablet (Thera) insulin lispro 100 unit/mL See Rx Instructions .Route 06/02/25 09/02/25 Unknown Rx subcutaneous solution (Humalog .COMPLEX #10 mL U-100 Insulin) oxycodone-acetaminophen 5 mg-325 1 tab PO BID PRN pain 7 days #28 06/25/25 09/02/25 Unknown Rx mg tablet (Percocet) tabs apixaban 5 mg tablet (Eliquis) See Rx Instructions .[place] 08/24/25 09/02/25 09/01/25 Rx .COMPLEX #60 tabs empagliflozin 10 mg tablet See Rx Instructions .Route 08/24/25 09/02/25 09/01/25 Rx (Jardiance) .COMPLEX #30 tabs folic acid 1 mg tablet See Rx Instructions .Route 1 10/25/24 09/02/25 09/01/25 Rx .COMPLEX #30 tabs metoprolol succinate 25 mg See Rx Instructions .Route 08/24/25 09/02/25 09/01/25 Rx tablet,extended release 24 hr .COMPLEX #30 tabs amiodarone 200 mg tablet 200 mg PO DAILY 09/02/2507/18 Unknown History naloxone 4 mg/actuation nasal See Rx Instructions .Rou te .COMPLEX 09/02/25 09/02/25 Unknown History spray (Narcan) Allergies Allergy/AdvReac Type Severity Reaction Status Date / Time No Known Allergies Allergy Verified 06/25/25 13:59 Current Medications Generic Name Dose Route Start Last Admin Trade Name Naborq PRN Reason Stop Dose Admin Aspirin 81 mg 09/02/25 05:00 09/02/25 04:04 Aspirin 81 Mg Ec Tablet PO 81 mg DAILY JERRY Administration Cefepime HCl 2,000 mg 09/02/25 09:00 09/02/25 09:17 Cefepime 2,000 Mg Sdv IVP 2,000 mg Q12H JERRY Administration Protocol Docusate Sodium 100 mg 09/02/25 05:00 09/02/25 04:05 Docusate Sodium 100 Mg Capsule PO 100 mg BID JERRY Administration Folic Acid 1 mg 09/02/25 05:00 09/02/25 04:04 Folic Acid 1 Mg Tablet PO 1 mg DAILY JERRY Administration Vancomycin HCl 1,500 mg in 300 mls @ 200 mls/hr 09/02/25 10:00 09/02/25 12:10 Vancocin IV Infused Q12H JERRY Infusion Insulin Human Lispro 0 unit 09/02/25 12:00 09/02/25 11:43 Insulin Lispro 100 Unit/1 Ml SUBCUT 4 unit WM&BEDTIME JERRY Administration Protocol Metoprolol Succinate 25 mg 09/02/25 05:00 09/02/25 04:04 Metoprolol Succinate Er (24 Hr) 25 Mg Tablet PO 25 mg DAILY JERRY Administration Multivitamins Therapeutic 1 tab 09/02/25 05:00 09/02/25 04:04 Multivitamin Therapeutic Tablet PO 1 tab DAILY JERRY Administration Oxycodone/Acetaminophen 1 tab 09/01/25 22:01 09/01/25 23:38 Oxycodone-Apap 5-325 Mg Tablet PO 1 tab BID PRN Administration PAIN Spironolactone 12.5 mg 09/02/25 05:00 09/02/25 04:05 Spironolactone 25 Mg Tablet PO 12.5 mg DAILY JERRY Administration Thiamine Mononitrate 100 mg 09/02/25 05:00 09/02/25 04:04 Thiamine 100 Mg Tablet PO 100 mg DAILY JERRY Administration PFSH Acute 2 PFSH: Medical History (Updated 09/06/25 @ 12:06 by Darrian Yun DO) Wound dehiscence, surgical Presence of IVC filter Tobacco use disorder Heart failure with mildly reduced ejection fraction (HFmrEF) Elevated blood pressure reading with diagnosis of hypertension Alcoholism with alcohol dependence Diabetes type 2, controlled Neuropathy History of non-ST elevation myocardial infarction (NSTEMI) Peripheral vascular disease Chronic atrial fibrillation Primary hypertension CHF (congestive heart failure) LVEF 64% 01/30/2025 Surgical History Hx of umbilical hernia repair 07/05/23 lap repair of umbilical hernia with mesh- Dr Obrien History of implantable cardioverter-defibrillator (ICD) placement Family History Mother CAD (coronary artery disease) Social History Smoking and tobacco/nicotine status: current every day tobacco/nicotine user cigarettes [ Other cigarette details: 1.5 pack per day x 40 years, currently down to 3-4 cig/day] Alcohol intake: former Year of sobriety/quit date alcohol: 2024 Former alcohol use details: Stopped for 4 months as of 09/01/2025 Substance/Drug Use: former Date of last use: marijuana in 2021 Additional social history: Patient was full code as discussed with Alfonso Napier MD on 09/01/2025 Household members: children Marital status: Single Number of children: 2 Number of grandchildren: 0 Current occupational status: disabled Special duc needs: No Agree to transfusion: Yes Vitals/I&O/Wt Last Vital Signs Temp 98.0 F 09/02/25 11:01 Pulse 78 09/02/25 11:01 Resp 18 09/02/25 11:01 BP 109/73 09/02/25 11:01 Pulse Ox 94 09/02/25 11:01 O2 Del Method Room Air 09/02/25 11:01 09/01/25 09/02/25 09/02/25 22:59 06:59 14:59 Intake Total 400 / 400 900 / 900 Output Total 500 / 500 800 / 800 Balance -100 / -100 100 / 100 Weight last 48 hrs Weight 174 lb Weight 170 lb Weight 176 lb 8 oz Physical Exam 2 Narrative: Examination of the left BKA: Examination left BKA demonstrates patient has 2 areas of open granulating and wounds. There are some periwound erythema more prominent over the medial wound and then a larger granulating wound laterally. This is currently being treated by wound care, dry dressings in place subsequently removed and then subsequently utilized a Q-tip probe to inspect the wound there is JANENE wound fibrinous slough and subtle murky drainage however on compression of the BKA there is no expressible abscess at this time, when probing there is no tunneling deep or no visibly directable communication to bone on examination today. Mild tenderness to palpation around the periwound area. No proximal tracking erythema as well as patient is able to flex and extend at the knee with no significant issues pain or discomfort with micromotion. Data 09/05/25 04:17 09/05/25 04:17 Other Labs: Labs 09/01/2025 listed below: WBC 6.93, hemoglobin 14.8 ESR 53, creatinine 0.9, CRP 11.1 Micro: Microbiology 09/02/25 11:00 Blood Culture - Preliminary Blood SPECIMEN COLLECTED 09/02/25 09:27 Blood Culture - Preliminary Blood SPECIMEN COLLECTED Xray Ortho: Radiologist's impression: Patient: Andrew Ruggiero Unit #: [id number] : 1965 Age/Sex: 59 / M ADM Date: 09/01/25 Loc: ER Room/Bed: Attending: Ordering Provider/Ordering MD: Kay Thomas MD Date of Service: 09/01/25 Procedure(s): XR tibia fibula LT 2V 31501 Accession Number(s): [id number] Report Number: [id number] PROCEDURE INFORMATION: Exam: XR Left Tibia and Fibula Exam date and time: 09/01/2025 8:46 PM Age: 59 years old Clinical indication: Pain; Lower leg; Left; Prior surgery; Surgery date: 1-6 months; Surgery type: Partial amputation red swollen; Additional info: Possible osteo TECHNIQUE: Imaging protocol: Radiologic exam of the left tibia and fibula. Views: 2 views. Total images: 408 COMPARISON: No relevant prior studies available. FINDINGS: Bones/joints: [id number] amputation stump demonstrates air communicating between the anterior skin surface in the bony stump, which may represent a open sinus tract. Chronic periosteal reaction noted about the remnant tibia and fibula. Knee mild tricompartment osteoarthritis. Soft tissues: No radiopaque foreign body. XR/XR tibia fibula LT 2V 35865 IMPRESSION: Zzvpl-dxg-[id number] amputation stump demonstrates air communicating between the anterior skin surface in the bony stump, which may represent a open sinus tract. COMMENTS: If symptoms persist or progress, or if there is a high clinical index of suspicion for amputation stump osteomyelitis, follow-up nonurgent MRI could be considered. Patient: Andrew Ruggiero Unit #: [id number] : 1965 Age/Sex: 59 / M ADM Date: 09/01/25 Loc: [facility] Room/Bed: [facility] Attending: Alfonso Napier MD Ordering Provider/Ordering MD: Alfonso Napier MD Date of Service: 09/02/25 Procedure(s): CT lower leg LT w con 56405 Accession Number(s): [id number] Report Number: [id number] PROCEDURE INFORMATION: Exam: CT Left Lower Extremity With Contrast Exam date and time: 09/02/2025 1:46 AM Age: 59 years old Clinical indication: Edema; Location not specified; Prior surgery; Surgery date: 6+ months; Surgery type: Bka; Additional info: Suspected osteomyelitis and abscess left bka stump, has a pacer defibrillator TECHNIQUE: Imaging protocol: CT of the left lower extremity with intravenous contrast was performed. Radiation optimization: All CT scans at this facility use at least one of these dose optimization techniques: automated exposure control; mA and/or kV adjustment per patient size (includes targeted exams where dose is matched to clinical indication); or iterative reconstruction. Contrast material: OMNI 350; Contrast volume: 90 ml; Contrast route: INTRAVENOUS (IV); COMPARISON: CT lower leg LT w con [id number] 05/27/2025 8:27 PM RADIATION DOSE METRICS: Total DLP (mGy-cm): 409.11 FINDINGS: Bones/joints: Below-knee amputation. Skin thickening and subcutaneous edema at the stump, with wound measuring approximately 1.3 cm deep. Correlate with physical exam. No drainable fluid collection or abscess. Periosteal new bone formation along the distal tibia and fibula stump, which may be secondary to chronic osteomyelitis. Consider MRI for further evaluation. Soft tissues: Atrophy of the calf musculature. Vasculature: Vascular calcifications. CT/CT lower leg LT w [facility] [address] IMPRESSION: 1. Below-knee amputation. Skin thickening and subcutaneous edema at the stump, with wound measuring approximately 1.3 cm deep. Correlate with physical exam. No drainable fluid collection or abscess. 2. Periosteal new bone formation along the distal tibia and fibula stump, which may be secondary to chronic osteomyelitis. Consider MRI for further evaluation. Patient: Andrew Ruggiero Unit #: [id number] : 1965 Age/Sex: 59 / M ADM Date: 09/02/25 Loc: [facility] Room/Bed: [facility] Attending: Ishan Cedeno MD Ordering Provider/Ordering MD: Ishan Cedeno MD Date of Service: 09/02/25 Procedure(s): US soft tissue/extremity 79245 Accession Number(s): [id number] Report Number: [id number] PROCEDURE INFORMATION: Exam: US Left Limited Joint or Other Non-Vascular Extremity Structure Exam date and time: 09/02/2025 4:20 PM Age: 59 years old Clinical indication: Mass or lump; Other: Chest; Prior surgery; Surgery date: 3-7 days post-operative; Surgery type: Intracardiac defibrillator; Additional info: Icd pocket to R/O collection TECHNIQUE: Imaging protocol: US left limited joint or other nonvascular extremity structure. Real-time ultrasound with image documentation. Exam focused on the area of clinical interest. COMPARISON: [place] [id number] 02/28/2023 6:11 PM FINDINGS: Soft tissues: Unremarkable. No fluid collection in the area of interest. US/US soft tissue/extremity 61624 IMPRESSION: Unremarkable US. A&P Assessment and plan 1. Status post below-knee amputation of left lower extremity: 2. Wound infection: 3. Wound dehiscence, surgical: Plan: Imaging reviewed Labs reviewed Discussed treatment options with patient as far as nonoperative and operative invention CT imaging demonstrate no drainable abscess Chronic wound being managed by wound care Patient on IV antibiotics per primary Ortho consulted Internal medicine is primary Recommend continue wound care of daily wet-to-dry dressing changes Continue with IV antibiotics Approach conservatively with nonoperative treatment at this time Orthopedic surgery team will sign off patient at this time follow peripherally if there is any questions pertaining patient's care prefer to contact orthopedics on-call Recommend continue following up with wound care and can follow-up with orthopedics in 2 weeks upon discharge. Patient this point time 59-year-old male established my practice had a below the knee amputation back in May he has been chronically being managed with wound dehiscence by wound care. He had some increase in periwound erythema and some drainage as result brought in the emergency department no elevated white count this appears to be early he is unable to get an MRI due to his pacemaker at this point time reviewed his CT scan and there is no drainable abscess. At this point in time I did probe the wound thoroughly there was no appreciable communication to the tip of the bone and there is no exposed bone I feel this could potentially heal with aggressive antibiotics as well as wound care which we talked about this in detail did give him the option of revision amputation unfortunate this is a high BKA at baseline due to his wounds and soft tissue envelope which I feel as though a revision below the knee amputation would likely not be an option could potentially do a through the knee amputation or an [id number]-jfj-aywu amputation at this point I am would like to hold off on any further amputation surgery and like to trial a conservative approach with wound care and IV antibiotics. Will follow-up with him in the interim 2 weeks orthopedic surgery team will sign off and follow peripherally presenting questions pertaining patient's care for free to contact orthopedics on-call. Patient will continue to follow wound care outpatient. PDMP PDMP Reviewed: Not Reviewed Coding Level of Care Code Acute Code for Chg Fwd Diagnoses Status post below-knee amputation of left lower extremity Z89.512 Wound infection T14.8XXA; L08.9 Wound dehiscence, surgical T81.31XA Time Spent (min) 45
--- NOTE | 2025-09-02 13:39 | PHA.VACGOAL ---
Vancomycin Goal - Goal Vancomycin Goal:: 15-20 mg/L Vancomycin Indication:: Osteo - Therapy Day of therpy:: Day []of [] . Actual body weight (kg): 78.925 kg - Data Labs: WBC 9.59 10^3/uL (3.29-11.43) 09/02/25 09:27 RBC 5.44 10^6/uL (3.85-5.65) 09/02/25 09:27 Hgb 14.40 g/dL (11.27-16.99) 09/02/25 09:27 Hct 45.1 % (37-53) 09/02/25 09:27 MCV 82.9 fl (82-101) 09/02/25 09:27 MCH 26.5 pg (27-33) L 09/02/25 09:27 MCHC 31.9 g/dL (30-55) 09/02/25 09:27 RDW 14.7 % (12.1-15.1) 09/02/25 09:27 Sodium 135 mmol/L (136-145) L 09/02/25 09:27 Potassium 4.0 mmol/L (3.5-5.1) 09/02/25 09:27 Chloride 103 mmol/L (98-107) 09/02/25 09:27 Carbon Dioxide 18 mmol/L (22-29) L 09/02/25 09:27 Anion Gap 18.0 (5-19) 09/02/25 09:27 BUN 13 mg/dL (6-20) 09/02/25 09:27 Creatinine 1.1 mg/dL (0.7-1.2) 09/02/25 09:27 GFR Calculation 68.8 mL/min (90-130) L 09/02/25 09:27 Treatment plan:: new consult Regimen:: 1000 MG Q12H
--- NOTE | 2025-09-02 20:02 | PM.CONSULT ---
Providers/Reason For Consult Consulting Physician/Specialty*: Verito Miller MD/Infectious Disease Reason for Consult*: osteomyelitis Requesting Physician: Ishan Cedeno MD Attending Physician: Ishan Cedeno MD Primary Care Provider: Oliver Dempsey MD History of Present Illness History of Present Illness Andrew Ruggiero is a 59 year old malewith past medical history of CHF, systolic, ICD in place, history of atrial fibrillation on Eliquis, history of pej-[id number]-ixwnxegff type 2 diabetes mellitus, smoker, hypertension, history of chronic diabetic foot ulcers and neuropathy for at least 4 years. He has been followed by wound care clinic for many years. In april 2025 he was incarcerated briefly when his wound regressed off of compression wraps. In May 2025, he undrewent left BKA due to worsened wounds. He had an IVC filter placed this admission. Post op course complicated by wound dehiscnece at 2 sites over the stump for which he follows with wound care clinic. He has been recommended to use wound vac over the stump most recently. The patient was admitted last night due to worsening of wounds with increased discharge.CT of the stump showed Periosteal new bone formation along the distal tibia and fibula stump, which may be secondary to chronic osteomyelitis. ID conulted in view of osteomyelitis and further abx recommendations. Right leg wounds Review of Systems General: Reports: 10 or more systems reviewed and unremarkable except in HPI and below Const: Denies: fever(s), chills or body aches Eyes: Denies: change in vision, blurry vision or photophobia ENMT: Reports: hoarseness; Denies: throat pain, enlarged tonsils, odynophagia or nasal congestion Card: Denies: chest pain, palpitations, irregular heart rhythm, edema, swelling of feet/ankles, lightheadedness, pre-syncope, dyspnea on exertion or orthopnea Resp: Denies: dyspnea, productive cough, non-productive cough, wheezing, stridor, pain on inspiration, change in phlegm color, hemoptysis or chest congestion GI: Denies: abdominal pain, nausea, vomiting, hematemesis, coffee ground emesis, dysphagia, heartburn, diarrhea, constipation, GI cramping, change in stool character, hematochezia or melena : Denies: flank pain, dysuria, urinary frequency, urinary urgency, urinary hesitancy or hematuria Musc: Denies: neck pain, back pain, extremity pain, joint swelling, joint warmth or deformity Neuro: Denies: headache(s), numbness in extremities, weakness in extremities, sensory changes, difficulty walking, frequent falls, dizziness, vertigo, behavioral changes, Slurred speech present or seizure-like activity Psych: Denies: anxiety, depression, suicidal ideation or homicidal ideation Endo: Denies: polyuria, polydipsia, tired all the time, cold intolerance or hot flashes Jeff/Lymph: Denies: easy bruising or easy bleeding Medications/Allergies Home Medications ?Medication ?Instructions ?Recorded ?Confirmed ?Last Taken ?Type acetaminophen 325 mg tablet 650 mg PO QID PRN Pain 01/07/25 09/02/25 02/24/25 History (Tylenol) aspirin 81 mg tablet,delayed 81 mg PO DAILY #90 tabs 01/07/25 09/02/25 09/01/25 Rx release spironolactone 25 mg tablet 12.5 mg (1/2 x 25 mg) PO DAILY #90 01/07/25 09/02/25 09/01/25 Rx tabs thiamine HCl (vitamin B1) 100 mg 100 mg PO DAILY #90 tabs 01/08/25 09/02/25 09/01/25 Rx tablet multivitamin with folic acid 400 1 tab PO DAILY #30 tabs 02/01/25 09/02/25 09/01/25 Rx mcg tablet (Thera) insulin lispro 100 unit/mL See Rx Instructions .Route 06/02/25 09/02/25 Unknown Rx subcutaneous solution (Humalog .COMPLEX #10 mL U-100 Insulin) oxycodone-acetaminophen 5 mg-325 1 tab PO BID PRN pain 7 days #28 06/25/25 09/02/25 Unknown Rx mg tablet (Percocet) tabs apixaban 5 mg tablet (Eliquis) See Rx Instructions .Route 08/24/25 09/02/25 09/01/25 Rx .COMPLEX #60 tabs empagliflozin 10 mg tablet See Rx Instructions .Route 08/24/25 09/02/25 09/01/25 Rx (Jardiance) .COMPLEX #30 tabs folic acid 1 mg tablet See Rx Instructions .Route 08/24/25 09/02/25 09/01/25 Rx .COMPLEX #30 tabs metoprolol succinate 25 mg See Rx Instructions .Route 08/24/25 09/02/25 09/01/25 Rx tablet,extended release 24 hr .COMPLEX #30 tabs amiodarone 200 mg tablet 200 mg PO DAILY 09/02/25 09/02/25 Unknown History naloxone 4 mg/actuation nasal See Rx Instructions .Route .COMPLEX 09/02/25 09/02/25 Unknown History spray (Narcan) Allergies Allergy/AdvReac Type Severity Reaction Status Date / Time No Known Allergies Allergy Verified 06/25/25 13:59 Current Medications Generic Name Dose Route Start Last Admin Trade Name Freq PRN Reason Stop Dose Admin Aspirin 81 mg 09/02/25 05:00 09/02/25 04:04 Aspirin 81 Mg Ec Tablet PO 81 mg DAILY JERRY Administration Cefepime HCl 2,000 mg 09/02/25 09:00 09/02/25 09:17 Cefepime 2,000 Mg Sdv IVP 2,000 mg Q12H JERRY Administration Protocol Docusate Sodium 100 mg 09/02/25 05:00 09/02/25 17:11 Docusate Sodium 100 Mg Capsule PO 100 mg BID JERRY Administration Folic Acid 1 mg 09/02/25 05:00 09/02/25 04:04 Folic Acid 1 Mg Tablet PO 1 mg DAILY JERRY Administration Insulin Human Lispro 0 unit 09/02/25 12:00 09/02/25 17:10 Insulin Lispro 100 Unit/1 Ml SUBCUT Not Given WM&BEDTIME JERRY Protocol Metoprolol Succinate 25 mg 09/02/25 05:00 09/02/25 04:04 Metoprolol Succinate Er (24 Hr) 25 Mg Tablet PO 25 mg DAILY JERRY Administration Multivitamins Therapeutic 1 tab 09/02/25 05:00 09/02/25 04:04 Multivitamin Therapeutic Tablet PO 1 tab DAILY JERRY Administration Oxycodone/Acetaminophen 1 tab 09/01/25 22:01 09/01/25 23:38 Oxycodone-Apap 5-325 Mg Tablet PO 1 tab BID PRN Administration PAIN Spironolactone 12.5 mg 09/02/25 05:00 09/02/25 04:05 Spironolactone 25 Mg Tablet PO 12.5 mg DAILY JERRY Administration Thiamine Mononitrate 100 mg 09/02/25 05:00 09/02/25 04:04 Thiamine 100 Mg Tablet PO 100 mg DAILY JERRY Administration PFSH Acute PFSH: Medical History Presence of IVC filter Tobacco use disorder Heart failure with mildly reduced ejection fraction (HFmrEF) Elevated blood pressure reading with diagnosis of hypertension Alcoholism with alcohol dependence Diabetes type 2, controlled Neuropathy History of non-ST elevation myocardial infarction (NSTEMI) Peripheral vascular disease Chronic atrial fibrillation Primary hypertension CHF (congestive heart failure) LVEF 64% 01/30/2025 Surgical History Hx of umbilical hernia repair 07/05/23 lap repair of umbilical hernia with mesh- Dr Obrien History of implantable cardioverter-defibrillator (ICD) placement Family History Mother CAD (coronary artery disease) Social History Smoking and tobacco/nicotine status: current every day tobacco/nicotine user cigarettes Number of cigarettes per day: 6-10 [ Other cigarette details: 1.5 pack per day x 40 years, currently down to 3-4 cig/day] Alcohol intake: former Year of sobriety/quit date alcohol: 2024 Former alcohol use details: Stopped for 4 months as of 09/01/2025 Substance/Drug Use: former Date of last use: marijuana in 2021 Additional social history: Patient was full code as discussed with Alfonso Napier MD on 09/01/2025 Household members: children Marital status: Single Number of children: 2 Number of grandchildren: 0 Current occupational status: disabled Special duc needs: No Agree to transfusion: Yes Vitals/I&O/Wt Last Vital Signs Temp 98.1 F 09/02/25 19:33 Pulse 75 09/02/25 19:33 Resp 17 09/02/25 19:33 BP 132/80 09/02/25 19:33 Pulse Ox 98 09/02/25 19:33 O2 Del Method Room Air 09/02/25 19:33 09/02/25 09/02/25 09/02/25 06:59 14:59 22:59 Intake Total 400 / 400 900 / 900 240 / 1140 Output Total 500 / 500 800 / 800 800 / 1600 Balance -100 / -100 100 / 100 -560 / -460 Weight last 48 hrs Weight 78.925 kg Weight 77.111 kg Weight 80.059 kg Physical Exam Narrative: Seen via telehealth General: No acute distress, AO x3 Neuro: No focal deficits, no facial deformity, AO x3, Extremities: left BKA stump with 2 wounds, more latreal wound with giid granulation tissue at base. Medial wound appears tunneling in appearance, however limited assessment on telehealth exam Data 09/02/25 09:27 09/02/25 09:27 Other Labs: Radiology Impressions Tibia/Fibula X-Ray 09/01/25 20:42 IMPRESSION: [id number] amputation stump demonstrates air communicating between the anterior skin surface in the bony stump, which may represent a open sinus tract. COMMENTS: If symptoms persist or progress, or if there is a high clinical index of suspicion for amputation stump osteomyelitis, follow-up nonurgent MRI could be considered. Lower Extremity CT 09/02/25 00:03 IMPRESSION: 1. Below-knee amputation. Skin thickening and subcutaneous edema at the stump, with wound measuring approximately 1.3 cm deep. Correlate with physical exam. No drainable fluid collection or abscess. 2. Periosteal new bone formation along the distal tibia and fibula stump, which may be secondary to chronic osteomyelitis. Consider MRI for further evaluation. Soft Tissue Ultrasound 09/02/25 10:35 IMPRESSION: Unremarkable US. Laboratory Results WBC 9.59 10^3/uL (3.29-11.43) 09/02/25 09:27 RBC 5.44 10^6/uL (3.85-5.65) 09/02/25 09:27 Hgb 14.40 g/dL (11.27-16.99) 09/02/25 09: Hct 45.1 % (37-53) 09/02/25 09: MCV 82.9 fl (82-101) 09/02/25 09: MCH 26.5 pg (27-33) L 09/02/25 09: MCHC 31.9 g/dL (30-55) 09/02/25 09:27 RDW 14.7 % (12.1-15.1) 09/02/25 09:27 Plt Count 166 10^3/cmm (157-399) 09/02/25 09: MPV 10.2 fL (7.4-10.4) 09/02/25 09: Neut % (Auto) 89.4 % 09/02/25 09: Lymph % (Auto) 6.8 % 09/02/25 09:27 [place] % (Auto) 1.7 % 09/02/25 09: Eos % (Auto) 1.4 % 09/02/25 09: Baso % (Auto) 0.4 % 09/02/25 09:27 Neut # (Auto) 8.58 10^3/uL (1.8-7.7) H 09/02/25 09: Lymph # (Auto) 0.7 10^3/uL (0.8-4.8) L 09/02/25 09:27 [place] # (Auto) 0.2 10^3/uL (0.2-0.9) 09/02/25 09: Eos # (Auto) 0.1 10^3/uL (0.0-0.8) 09/02/25 09: Baso # (Auto) 0.0 10^3/uL (0.0-0.1) 09/02/25 09: Nucleated RBC % (auto) 0 % 09/02/25 09: Nucleated RBCs # 0.0 /100WBC 09/02/25 09:27 ESR 53 mm/hr (0-10) H 09/01/25 18:53 Sodium 135 mmol/L (136-145) L 09/02/25 09:27 Potassium 4.0 mmol/L (3.5-5.1) 09/02/25 09:27 Chloride 103 mmol/L (98-107) 09/02/25 09:27 Carbon Dioxide 18 mmol/L (22-29) L 09/02/25 09:27 Anion Gap 18.0 (5-19) 09/02/25 09:27 BUN 13 mg/dL (6-20) 09/02/25 09:27 Creatinine 1.1 mg/dL (0.7-1.2) 09/02/25 09:27 GFR Calculation 68.8 mL/min (90-130) L 09/02/25 09:27 Glucose 204 mg/dL (65-115) H 09/02/25 09:27 POC Glucose 232 mg/dL (70-110) H 09/02/25 20:06 Calculated Osmolality 286 mOsm/kg (285-295) 09/02/25 09:27 Calcium 8.8 mg/dL (8.5-10.5) 09/02/25 09:27 Iron 68 ug/dL (59-158) 09/02/25 09:27 TIBC 331 mcg/dl 09/02/25 09:27 % Saturation 20.5 % (20-50) 09/02/25 09:27 Unsat Iron Binding 263 ug/dL (112-347) 09/02/25 09:27 Total Bilirubin 0.7 mg/dL (0.15-1.2) 09/02/25 09:27 AST 15 U/L (0-40) 09/02/25 09:27 ALT 17 U/L (0-41) 09/02/25 09:27 Alkaline Phosphatase 113 U/L (40-130) 09/02/25 09:27 C-Reactive Protein 11.1 mg/L (0.0-4.9) H 09/01/25 18:53 Total Protein 7.7 g/dL (6.6-8.7) 09/02/25 09:27 Albumin 3.6 g/dL (3.5-5.2) 09/02/25 09:27 Globulin 4.1 g/dL (1.3-4.6) 09/02/25 09:27 Vitamin B12 414 pg/mL (232-1245) 09/02/25 09:27 Procalcitonin 2.21 ng/mL (0-0.5) H 09/02/25 09:27 Micro: Microbiology 09/02/25 04:02 Gram Stain - Final Leg - Left Side 09/02/25 11:00 Blood Culture - Preliminary Blood SPECIMEN COLLECTED 09/02/25 09:27 Blood Culture - Preliminary Blood SPECIMEN COLLECTED A&P Assessment and plan 1. Chronic osteomyelitis: 2. Chronic deep vein thrombosis (DVT) of femoral vein of left lower extremity: 3. Diabetes: Plan: 59 Year old male with history as outlined above currently admitted with chronic osteomyelitis of the Left BKa stump as a complication of wound dehiscence along with worsening wounds Blood cx taken, pending past wound cx from 06/2025 with Pseudomonas aeruginosa and MRSA, agree with using Cefepime and Vancomycin empirically Orthopedic service has been consulted by primary- final abx duration and selction remains dependent on surgical planning. If patient undergoes higher level amputation for definitive source control , will plan to transition to po abx when nearing discharge. If it is elected to proceed with I&D, then will likely need 6 week abx course. Will follow PDMP PDMP Reviewed: Not Reviewed Coding Level of Care Code G0425 (30 min) TH Encounter Time (min): 40 Patient seen via Telehealth in the acute care setting (hospital or ED location) by agreement and consent of patient or patient pharmaceutical specialty representative. Telehealth technology used during the visit includes video and audio. This patient encounter is appropriate and reasonable under the circumstances given the patient?s particular presentation at this time. The patient has been advised of the potential risks and limitations of this mode of treatment (including but not limited to the absence of in-person examination at this time) and has agreed to be treated by an off-site physician for this visit. If deemed clinically necessary from this telehealth visit, or if condition or consent for telehealth visit changes, an in-person visit will be arranged. For this encounter, total time for the origination of telehealth care on this date is as shown. Other Coding Information Focused coding review requested Diagnoses Chronic osteomyelitis M86.60 Chronic deep vein thrombosis (DVT) of femoral vein of left lower extremity I82.512 Affected thrombotic vein of extremity: femoral Chronicity: chronic Laterality: left Diabetes E11.9
[2025-09-03] VITALS (7 sets, daily range): BP systolic 122–135; BP diastolic 61–84; PULSE 67–76; RESP 16–17; TEMP 36.3–36.7; O2SAT 95–99
[2025-09-03] MEDS: DAPAGLIFLOZIN 5 MG TABLET PO (04:11)
[2025-09-03] MEDS: metoprolol succinate ER (24 HR) 25 mg Tablet PO (04:14)
[2025-09-03] MEDS: multivitamin therapeutic Tablet 1 TAB PO (06:00)
[2025-09-03 06:30] LABS: Hematocrit 43.5 % (37-53); Hemoglobin 13.70 g/dL (11.27-16.99); Mean Corpuscular HGB Conc 31.5 g/dL (30-55); Mean Corpuscular Hemoglobin 26.2 pg (27-33); Mean Corpuscular Volume 83.2 fl (82-101); Nucleated Red Blood Cells % 0 %; Platelet Count 140 10^3/cmm (157-399); Red Blood Count 5.23 10^6/uL (3.85-5.65); White Blood Count 5.79 10^3/uL (3.29-11.43)
[2025-09-03 06:50] LABS: Alanine Aminotransferase 20 U/L (0-41); Albumin Level 3.6 g/dL (3.5-5.2); Alkaline Phosphatase 100 U/L (40-130); Anion Gap 15.8 (5-19); Aspartate Amino Transferase 21 U/L (0-40); Blood Urea Nitrogen 13 mg/dL (6-20); Calcium 8.9 mg/dL (8.5-10.5); Carbon Dioxide 20 mmol/L (22-29); Chloride 107 mmol/L (98-107); Globulin 4.1 g/dL (1.3-4.6); Glucose 104 mg/dL (65-115); Osmolality Calculated 288 mOsm/kg (285-295); Potassium 3.8 mmol/L (3.5-5.1); Sodium 139 mmol/L (136-145); Total Protein 7.7 g/dL (6.6-8.7)
[2025-09-03 07:11] LABS: Magnesium 2.0 mg/dL (1.7-2.3)
[2025-09-03] MEDS: cefepime 2,000 mg SDV 2000 MG IVP ×2 (08:38→21:28)
--- NOTE | 2025-09-03 11:09 | PM.PN ---
Subjective Subjective: No acute events overnight. Patient has remained hemodynamically stable and afebrile. Denies any nausea, vomiting, headache. Denies any chest pain. Vitals/I&O/Wt Last Vital Signs Temp 97.4 F L 09/03/25 07:57 Pulse 70 09/03/25 07:57 Resp 17 09/03/25 07:57 BP 131/81 09/03/25 07:57 Pulse Ox 96 09/03/25 07:57 O2 Del Method Room Air 09/03/25 04:00 O2 Flow Rate 0 09/02/25 20:00 09/02/25 09/03/25 09/03/25 22:59 06:59 14:59 Intake Total 240 / 1140 500 / 1640 850 / 850 Output Total 800 / 1600 1180 / 2780 Balance -560 / -460 -680 / -1140 850 / 850 Weight last 48 hrs Weight 76.657 kg Weight 78.925 kg Weight 77.111 kg Weight 80.059 kg Physical Exam Narrative: General Well-developed male in no acute cardiopulmonary stress CV regular rate and rhythm without loud murmurs Lungs clear to auscultation bilaterally no rales or wheeze Abdomen positive bowel tones soft nontender Calves right calf trace to 1+ edema. There is scarring from previous ulceration now healed and he is wearing compression hose. Left BKA stump with nonhealing incisional wounds see images from Dr. Thomas Skin warm and dry Skin: OTHER: Data 09/03/25 06:08 09/03/25 06:08 Micro: Microbiology 09/02/25 09:27 Blood Culture - Preliminary Blood NEGATIVE TO DATE 09/02/25 04:02 Gram Stain - Final Leg - Left Side 09/02/25 11:00 Blood Culture - Preliminary Blood SPECIMEN COLLECTED A&P Assessment and plan 1. Wound infection: 2. Chronic osteomyelitis: 3. Status post below-knee amputation of left lower extremity: 4. Chronic deep vein thrombosis (DVT) of femoral vein of left lower extremity: 5. Diabetes: 6. Controlled type 2 diabetes mellitus with other circulatory complication, without long-term current use of insulin: Start sliding scale insulinLow scale low scale continue diabetic diet 7. ICD (implantable cardioverter-defibrillator) in place: Patient states he has palpitations at times has not had recent defibrillator firing 8. Primary hypertension: 9. Heart failure with improved ejection fraction (HFimpEF): 10. Chronic atrial fibrillation: 11. Peripheral vascular disease: 12. Presence of IVC filter: Plan: 59-year-old gentleman with past medical history of PAD, DVT post IVC filter placement, heart failure with improved ejection fraction, ICD, type 2 diabetes mellitus, hypertension, s/p left BKA in May/2025 presents to the ER today because of wound infection at stump site while he continues to follow-up with wound care as an outpatient with concerns for possible acute on chronic osteomyelitis Plan for the day: Appreciate orthopedic and ID recommendations. Continue with IV antibiotics for now. Plan per orthopedic is for conservative treatment. For now continue with IV cefepime, vancomycin as per past culture history. Will confirm with ID as patient would need up to 6 weeks of IV antibiotics. Follow-up blood cultures. If remain negative for 48 hours can plan for PICC line placement. Patient otherwise euvolemic. Appreciate ICD interrogation. Appreciate soft tissue ultrasound without any collection. Continue with current insulin regimen. Restart Eliquis as patient is not plan for any OR. Full code Carb consistent cardiac Eliquis for DVT prophylaxis. Patient does have IVC filter in place. Protonix for PUD prophylaxis Disposition plan: Patient would need prolonged IV antibiotic course. Case management alerted. Plan for discharge to home with home health versus SNF for antibiotic. 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
--- NOTE | 2025-09-03 20:06 | PM.PN ---
Subjective Subjective: Infectious Disease progress note No acute interim events No current surgical intervention planned Medications: Reviewed: Yes Vitals/I&O/Wt Last Vital Signs Temp 97.5 F L 09/03/25 20:00 Pulse 75 09/03/25 20:00 Resp 16 09/03/25 20:00 BP 122/61 09/03/25 20:00 Pulse Ox 96 09/03/25 20:00 O2 Del Method Room Air 09/03/25 20:00 O2 Flow Rate 0 09/02/25 20:00 09/03/25 09/03/25 09/03/25 06:59 14:59 22:59 Intake Total 500 / 1640 1220 / 1220 240 / 1460 Output Total 1180 / 2780 600 / 600 400 / 1000 Balance -680 / -1140 620 / 620 -160 / 460 Weight last 48 hrs Weight 76.657 kg Weight 78.925 kg Weight 77.111 kg Physical Exam Narrative: Seen via telehealth General: No acute distress, AO x3 Neuro: No focal deficits, no facial deformity, AO x3, Extremities: left BKA stump with 2 wounds, more latreal wound with giid granulation tissue at base. Medial wound appears tunneling in appearance, however limited assessment on telehealth exam Data 09/03/25 06:08 09/03/25 06:08 Micro: Microbiology 09/02/25 04:02 Gram Stain - Final Leg - Left Side Wound Culture - Preliminary 09/02/25 11:00 Blood Culture - Preliminary Blood NEGATIVE TO DATE 09/02/25 09:27 Blood Culture - Preliminary Blood NEGATIVE TO DATE A&P Assessment and plan 1. Chronic osteomyelitis: 2. Chronic deep vein thrombosis (DVT) of femoral vein of left lower extremity: 3. Diabetes: Plan: 59 Year old male with history as outlined above currently admitted with chronic osteomyelitis of the Left BKa stump as a complication of wound dehiscence along with worsening wounds Blood cx taken, pending past wound cx from 06/2025 with Pseudomonas aeruginosa and MRSA, agree with using Cefepime and Vancomycin empirically Orthopedic service has been consulted by primary- final abx duration and selction remains dependent on surgical planning. If patient undergoes higher level amputation for definitive source control , will plan to transition to po abx when nearing discharge. If it is elected to proceed with I&D, then will likely need 6 week abx course. Will follow 09/03/25: No acute interim events. No surgical intervention planned for now. Blood cx remains negative to date. Wound cx gram stain with few GNR. Previous outpatient wound cx at wound care clinic with Pseudomonas and MRSA- continue current cefepime 2g iv q12h and iv vancomycin, with plan to continue these abx for outpatient use for a total duration of 6 weeks. (09/02/25-10/14/25). Picc line ordered. Patient is planned to transition to SNF at the time of discharge. f/up ID clinic on 10/08/25 at 10 am PDMP PDMP Reviewed: Not Reviewed Attestations Medical Necessity Statement*: per admitting Coding Level of Care Code Acute Code for [facility] Fwd Diagnoses Chronic osteomyelitis M86.60 Chronic deep vein thrombosis (DVT) of femoral vein of left lower extremity I82.512 Affected thrombotic vein of extremity: femoral Chronicity: chronic Laterality: left Diabetes E11.9 Diabetes mellitus type: type 2 Diabetes mellitus rn clinical coordinator insulin use: without rn clinical coordinator use
[2025-09-04] VITALS (8 sets, daily range): BP systolic 132–177; BP diastolic 77–90; PULSE 70–80; RESP 16–18; TEMP 36.4–36.8; O2SAT 92–96
[2025-09-04 05:15] LABS: Hematocrit 42.7 % (37-53); Hemoglobin 13.50 g/dL (11.27-16.99); Mean Corpuscular HGB Conc 31.6 g/dL (30-55); Mean Corpuscular Hemoglobin 25.7 pg (27-33); Mean Corpuscular Volume 81.3 fl (82-101); Nucleated Red Blood Cells % 0 %; Platelet Count 128 10^3/cmm (157-399); Red Blood Count 5.25 10^6/uL (3.85-5.65); White Blood Count 5.15 10^3/uL (3.29-11.43)
[2025-09-04 05:35] LABS: Alanine Aminotransferase 21 U/L (0-41); Albumin Level 3.8 g/dL (3.5-5.2); Alkaline Phosphatase 97 U/L (40-130); Anion Gap 14.7 (5-19); Aspartate Amino Transferase 21 U/L (0-40); Blood Urea Nitrogen 12 mg/dL (6-20); Calcium 9.0 mg/dL (8.5-10.5); Carbon Dioxide 21 mmol/L (22-29); Chloride 106 mmol/L (98-107); Globulin 3.7 g/dL (1.3-4.6); Glucose 94 mg/dL (65-115); Osmolality Calculated 286 mOsm/kg (285-295); Potassium 3.7 mmol/L (3.5-5.1); Sodium 138 mmol/L (136-145); Total Protein 7.5 g/dL (6.6-8.7)
[2025-09-04 05:45] LABS: Magnesium 1.9 mg/dL (1.7-2.3)
[2025-09-04] MEDS: multivitamin therapeutic Tablet 1 TAB PO (06:02)
[2025-09-04] MEDS: metoprolol succinate ER (24 HR) 25 mg Tablet PO (06:02)
[2025-09-04] MEDS: DAPAGLIFLOZIN 5 MG TABLET PO (06:04)
--- NOTE | 2025-09-04 07:00 | XR_ITS ---
WS: [id number] XR chest 1V portable [id number] REASON FOR EXAM: Post PICC insertion FINDINGS: Right arm PICC line placement. PICC line tip was at the atrial level and it was recommended to retract the catheter approximately [address] it in the distal SVC. Catheter position and retraction instructions were given to the electroneurodiagnostic technologist over the phone at 7:56 a.m. 09/04/2025. Repeat examination after retraction demonstrates the catheter tip in the distal SVC in proper position for use. Except for the placement of the PICC line in the chest is unchanged compared to previous examination 05/26/2025. XR/XR chest 1V portable [id number] IMPRESSION: Right arm PICC line placement in position ready for use.
--- NOTE | 2025-09-04 08:28 | PICC.NOTE ---
Single lumen PICC placed to right brachial vein. Referred to vascular access nurse for PICC placement due to need for IV antibiotics x 6 weeks. Risks and benefits discussed and informed consent obtained from pt. Pt with history of pacemaker to left chest. Right arm assessed with right brachial vein measuring 4.0 mm, straight, and apparent best choice for placement. Using sterile technique and MST, right brachial vein accessed x 1 stick. Mid-arm circumference measured 10 cm from right AC 28 cm. Trimmed cath 38 cm with 0 cm external length noted. CXR shows tip in distal SVC, in good position for use per radiologist. Line secured with stat-lock. Insertion site covered with Biopatch and TSM. Report given to bedside nurse, MARKEL Gibbs.
[2025-09-04] MEDS: cefepime 2,000 mg SDV 2000 MG IVP ×2 (09:33→20:46)
--- NOTE | 2025-09-04 11:52 | PM.PN ---
Subjective Subjective: No new complaints. Has remained hemodynamically stable and afebrile. Denies any nausea, vomiting, headache. Vitals/I&O/Wt Last Vital Signs Temp 97.7 F 09/04/25 10:51 Pulse 73 09/04/25 10:51 Resp 17 09/04/25 10:51 BP 132/79 09/04/25 10:51 Pulse Ox 96 09/04/25 10:51 O2 Del Method Room Air 09/04/25 10:51 O2 Flow Rate 0 09/02/25 20:00 09/03/25 09/04/25 09/04/25 22:59 06:59 14:59 Intake Total 240 / 1460 650 / 2110 850 / 850 Output Total 1200 / 1800 800 / 2600 475 / 475 Balance -960 / -340 -150 / -490 375 / 375 Weight last 48 hrs Weight 77.564 kg Weight 76.657 kg Physical Exam Narrative: General Well-developed male in no acute cardiopulmonary stress CV regular rate and rhythm without loud murmurs Lungs clear to auscultation bilaterally no rales or wheeze Abdomen positive bowel tones soft nontender Calves right calf trace to 1+ edema. There is scarring from previous ulceration now healed and he is wearing compression hose. Left BKA stump with nonhealing incisional wounds see images from Dr. Thomas Skin warm and dry Skin: OTHER: Data 09/04/25 04:58 09/04/25 04:58 Micro: Microbiology 09/02/25 04:02 Gram Stain - Final Leg - Left Side Wound Culture - Preliminary 09/02/25 11:00 Blood Culture - Preliminary Blood NEGATIVE TO DATE 09/02/25 09:27 Blood Culture - Preliminary Blood NEGATIVE TO DATE A&P Assessment and plan 1. Wound infection: 2. Chronic osteomyelitis: 3. Status post below-knee amputation of left lower extremity: 4. Chronic deep vein thrombosis (DVT) of femoral vein of left lower extremity: 5. Diabetes: 6. Controlled type 2 diabetes mellitus with other circulatory complication, without long-term current use of insulin: Start sliding scale insulinLow scale low scale continue diabetic diet 7. ICD (implantable cardioverter-defibrillator) in place: Patient states he has palpitations at times has not had recent defibrillator firing 8. Primary hypertension: 9. Heart failure with improved ejection fraction (HFimpEF): 10. Chronic atrial fibrillation: 11. Peripheral vascular disease: 12. Presence of IVC filter: Plan: 59-year-old gentleman with past medical history of PAD, DVT post IVC filter placement, heart failure with improved ejection fraction, ICD, type 2 diabetes mellitus, hypertension, s/p left BKA in May/2025 presents to the ER today because of wound infection at stump site while he continues to follow-up with wound care as an outpatient with concerns for possible acute on chronic osteomyelitis Plan for the day: Appreciate ID and orthopedic recommendation. Plan for conservative treatment with IV antibiotics for up to 6 weeks. Appreciate wound cultures. For now plan to discharge on IV vancomycin and cefepime for 6 weeks overall. PICC line placed today. Continue the chronic medications. Goal blood pressure less than 140/90 Elinor. Blood pressure at goal for now. Telemetry. Full code Carb consistent cardiac Eliquis for DVT prophylaxis. Patient does have IVC filter in place. Protonix for PUD prophylaxis Disposition plan: Patient would need prolonged IV antibiotic course. Case management alerted. Plan for discharge to home with home health versus SNF for antibiotic. 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
--- NOTE | 2025-09-04 20:01 | PM.MISC ---
Miscellaneous Note Purpose of Documentation: Chart reviewed, picc line placed. Patient awaiting placement. Continue cefepime and vancomycin
[2025-09-05] VITALS (9 sets, daily range): BP systolic 109–139; BP diastolic 75–90; PULSE 67–75; RESP 16–18; TEMP 36.3–36.7; O2SAT 93–96; BMI 26.7
[2025-09-05 04:44] LABS: Hematocrit 43.3 % (37-53); Hemoglobin 14.00 g/dL (11.27-16.99); Mean Corpuscular HGB Conc 32.3 g/dL (30-55); Mean Corpuscular Hemoglobin 26.0 pg (27-33); Mean Corpuscular Volume 80.3 fl (82-101); Nucleated Red Blood Cells % 0 %; Platelet Count 142 10^3/cmm (157-399); Red Blood Count 5.39 10^6/uL (3.85-5.65); White Blood Count 5.93 10^3/uL (3.29-11.43)
[2025-09-05 05:07] LABS: Alanine Aminotransferase 21 U/L (0-41); Albumin Level 4.0 g/dL (3.5-5.2); Alkaline Phosphatase 103 U/L (40-130); Anion Gap 14.1 (5-19); Aspartate Amino Transferase 25 U/L (0-40); Blood Urea Nitrogen 15 mg/dL (6-20); Calcium 9.6 mg/dL (8.5-10.5); Carbon Dioxide 23 mmol/L (22-29); Chloride 103 mmol/L (98-107); Globulin 4.3 g/dL (1.3-4.6); Glucose 129 mg/dL (65-115); Osmolality Calculated 285 mOsm/kg (285-295); Potassium 4.1 mmol/L (3.5-5.1); Sodium 136 mmol/L (136-145); Total Protein 8.3 g/dL (6.6-8.7)
[2025-09-05 05:08] LABS: Magnesium 1.9 mg/dL (1.7-2.3)
[2025-09-05] MEDS: multivitamin therapeutic Tablet 1 TAB PO (05:08)
[2025-09-05] MEDS: DAPAGLIFLOZIN 5 MG TABLET PO (05:08)
[2025-09-05] MEDS: metoprolol succinate ER (24 HR) 25 mg Tablet PO (05:09)
[2025-09-05] MEDS: cefepime 2,000 mg SDV 2000 MG IVP ×2 (09:20→21:02)
--- NOTE | 2025-09-05 11:22 | P.PN_ITS ---
Subjective 2 Subjective: Infectious Disease progress note No acute interim events Picc placed , awaiting disposition planning Medications: Reviewed: Yes Vitals/I&O/Wt Last Vital Signs Temp 97.6 F 09/05/25 08:12 Pulse 72 09/05/25 08:12 Resp 16 09/05/25 08:12 BP 139/90 09/05/25 08:12 Pulse Ox 95 09/05/25 08:12 O2 Del Method Room Air 09/05/25 04:00 O2 Flow Rate 0 09/02/25 20:00 09/04/25 09/05/25 09/05/25 22:59 06:59 14:59 Intake Total 360 / 1450 250 / 1700 610 / 610 Output Total 1300 / 1775 350 / 2125 200 / 200 Balance -940 / -325 -100 / -425 410 / 410 Weight last 48 hrs Weight 77.564 kg Weight 77.564 kg Physical Exam 2 Narrative: Seen via telehealth General: No acute distress, AO x3 Neuro: No focal deficits, no facial deformity, AO x3, Extremities: left BKA stump with 2 wounds, no active discharge, erythema or other concerning signs Data 09/05/25 04:17 09/05/25 04:17 Micro: Microbiology 09/02/25 04:02 Gram Stain - Final Leg - Left Side Wound Culture - Preliminary A&P Assessment and plan 1. Chronic osteomyelitis: 2. Chronic deep vein thrombosis (DVT) of femoral vein of left lower extremity: 3. Diabetes: Plan: 59 Year old male with history as outlined above currently admitted with chronic osteomyelitis of the Left BKa stump as a complication of wound dehiscence along with worsening wounds Blood cx taken, pending past wound cx from 06/2025 with Pseudomonas aeruginosa and MRSA, agree with using Cefepime and Vancomycin empirically Orthopedic service has been consulted by primary- final abx duration and selction remains dependent on surgical planning. If patient undergoes higher level amputation for definitive source control , will plan to transition to po abx when nearing discharge. If it is elected to proceed with I&D, then will likely need 6 week abx course. Will follow 09/03/25: No acute interim events. No surgical intervention planned for now. Blood cx remains negative to date. Wound cx gram stain with few GNR. Previous outpatient wound cx at wound care clinic with Pseudomonas and MRSA- continue current cefepime 2g iv q12h and iv vancomycin, with plan to continue these abx for outpatient use for a total duration of 6 weeks. (09/02/25-10/14/25). Picc line ordered. Patient is planned to transition to SNF at the time of discharge. f/up ID clinic on 10/08/25 at 10 am 09/05/25 : No acute interim events. patient awaiting dispotion planning. Wounds without any current discharge,erythema or tenderness. No new changes recommended today. 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
--- NOTE | 2025-09-05 17:41 | P.PN_ITS ---
Subjective 2 Subjective: No acute overnight events. Patient resting comfortably. He denies pain/discomfort Vitals/I&O/Wt Last Vital Signs Temp 97.4 F L 09/05/25 16:55 Pulse 70 09/05/25 16:55 Resp 16 09/05/25 16:55 BP 121/76 09/05/25 16:55 Pulse Ox 96 09/05/25 16:55 O2 Del Method Room Air 09/05/25 04:00 O2 Flow Rate 0 09/02/25 20:00 09/05/25 09/05/25 09/05/25 06:59 14:59 22:59 Intake Total 250 / 1700 970 / 970 Output Total 350 / 2125 600 / 600 200 / 800 Balance -100 / -425 370 / 370 -200 / 170 Weight last 48 hrs Weight 77.564 kg Weight 77.564 kg Physical Exam 2 Narrative: General Well-developed male in no acute cardiopulmonary stress CV regular rate and rhythm without loud murmurs Lungs clear to auscultation bilaterally no rales or wheeze Abdomen positive bowel tones soft nontender Calves right calf trace to 1+ edema. There is scarring from previous ulceration now healed and he is wearing compression hose. Left BKA stump with nonhealing incisional wounds see images from Dr. Thomas Skin warm and dry Data 09/05/25 04:17 09/05/25 04:17 Micro: Microbiology 09/02/25 04:02 Gram Stain - Final Leg - Left Side Wound Culture - Final A&P Assessment and plan 1. Wound infection: 2. Chronic osteomyelitis: 3. Status post below-knee amputation of left lower extremity: 4. Left leg DVT: 5. Heart failure with improved ejection fraction (HFimpEF): 6. Chronic atrial fibrillation: 7. ICD (implantable cardioverter-defibrillator) in place: Plan: Plan 59-year-old gentleman with past medical history of PAD, DVT post IVC filter placement, heart failure with improved ejection fraction, ICD, type 2 diabetes mellitus, hypertension, s/p left BKA in May/2025 presents to the ER today because of wound infection at stump site while he continues to follow-up with wound care as an outpatient with concerns for possible acute on chronic osteomyelitis Appreciate ID recs Plan for IV antibiotics for 6 weeks- IV vancomycin and cefepime PICC line placed Continue chronic home meds Await placement to facility Carb consistent diet DVT prophylaxis- eliquis- IVC filter in place GI prophylaxis- PPI Code status- Full PDMP PDMP Reviewed: Not Reviewed Attestations 2 Medical Necessity Statement*: Requires further hospitalization for management of wound infection at stump site as patient requires prolonged IV antibiotic course, concern for osteomyelitis Coding Level of Care Code 52073 Diagnoses Wound infection T14.8XXA; L08.9 Chronic osteomyelitis M86.60 Status post below-knee amputation of left lower extremity Z89.512 Left leg DVT I82.402 Heart failure with improved ejection fraction (HFimpEF) I50.20 Chronic atrial fibrillation I48.20 Atrial fibrillation type: unspecified chronic ICD (implantable cardioverter-defibrillator) in place Z95.810
[2025-09-06] VITALS (9 sets, daily range): BP systolic 121–135; BP diastolic 75–83; PULSE 66–78; RESP 16–18; TEMP 36.4–36.8; O2SAT 93–100; BMI 26.7
[2025-09-06] MEDS: metoprolol succinate ER (24 HR) 25 mg Tablet PO (04:48)
[2025-09-06] MEDS: DAPAGLIFLOZIN 5 MG TABLET PO (04:48)
[2025-09-06] MEDS: multivitamin therapeutic Tablet 1 TAB PO (04:48)
[2025-09-06] MEDS: cefepime 2,000 mg SDV 2000 MG IVP ×2 (08:53→20:40)
--- NOTE | 2025-09-06 09:00 | P.PN_ITS ---
Subjective 2 Subjective: Patient in no distress. Resting. No pain. No new complaints. Awaiting placement to SNF Vitals/I&O/Wt Last Vital Signs Temp 97.7 F 09/06/25 07:49 Pulse 73 09/06/25 07:49 Resp 16 09/06/25 07:49 BP 126/76 09/06/25 07:49 Pulse Ox 94 09/06/25 07:49 O2 Del Method Room Air 09/06/25 07:49 O2 Flow Rate 0 09/02/25 20:00 09/05/25 09/06/25 09/06/25 22:59 06:59 14:59 Intake Total 360 / 1330 730 / 2060 Output Total 1225 / 1825 650 / 2475 400 / 400 Balance -865 / -495 80 / -415 -400 / -400 Weight last 48 hrs Weight 77.428 kg Weight 77.564 kg Physical Exam 2 Narrative: General Well-developed male in no acute cardiopulmonary stress CV regular rate and rhythm without loud murmurs Lungs clear to auscultation bilaterally no rales or wheeze Abdomen positive bowel tones soft nontender Calves right calf trace to 1+ edema. There is scarring from previous ulceration now healed and he is wearing compression hose. Left BKA stump with nonhealing incisional wounds see images from Dr. Thomas Skin warm and dry Data 09/05/25 04:17 09/05/25 04:17 Micro: Microbiology 09/02/25 04:02 Gram Stain - Final Leg - Left Side Wound Culture - Final A&P Assessment and plan 1. Wound infection: 2. Chronic osteomyelitis: 3. Status post below-knee amputation of left lower extremity: 4. Chronic deep vein thrombosis (DVT) of femoral vein of left lower extremity: 5. Heart failure with improved ejection fraction (HFimpEF): 6. Chronic atrial fibrillation: 7. ICD (implantable cardioverter-defibrillator) in place: Plan: 59-year-old gentleman with past medical history of PAD, DVT post IVC filter placement, heart failure with improved ejection fraction, ICD, type 2 diabetes mellitus, hypertension, s/p left BKA in May/2025 presents to the ER today because of wound infection at stump site while he continues to follow- up with wound care as an outpatient with concerns for possible acute on chronic osteomyelitis Appreciate ID recs- past wound cx from 06/2025 with Pseudomonas aeruginosa and MRSA.No surgical intervention planned for now. Blood cx remains negative to date. Wounds without any current discharge,erythema or tenderness. Continue current cefepime 2g iv q12h and iv vancomycin, with plan to continue these abx for outpatient use for a total duration of 6 weeks. (09/02/25- 10/14/25). PICC line placed f/up ID clinic on 10/08/25 at 10 am Continue chronic home meds Await placement to facility Carb consistent diet DVT prophylaxis- eliquis- IVC filter in place GI prophylaxis- PPI Code status- Full PDMP PDMP Reviewed: Not Reviewed Attestations 2 Medical Necessity Statement*: Requires further hospitalization for management of wound infection at stump site as patient requires prolonged IV antibiotic course, concern for osteomyelitis Coding Level of Care Code 15153 Diagnoses Wound infection T14.8XXA; L08.9 Chronic osteomyelitis M86.60 Status post below-knee amputation of left lower extremity Z89.512 Chronic deep vein thrombosis (DVT) of femoral vein of left lower extremity I82.512 Affected thrombotic vein of extremity: femoral Chronicity: chronic Laterality: left Heart failure with improved ejection fraction (HFimpEF) I50.20 Chronic atrial fibrillation I48.20 Atrial fibrillation type: unspecified chronic ICD (implantable cardioverter-defibrillator) in place Z95.810
[2025-09-07] VITALS: BP 130/76; PULSE 70; RESP 16; TEMP 36.6; O2SAT 96
[2025-09-07 04:00] VITALS: BP 121/74; PULSE 70; RESP 16; TEMP 36.6; O2SAT 94
[2025-09-07] MEDS: metoprolol succinate ER (24 HR) 25 mg Tablet PO (04:55)
[2025-09-07] MEDS: multivitamin therapeutic Tablet 1 TAB PO (04:55)
[2025-09-07] MEDS: DAPAGLIFLOZIN 5 MG TABLET PO (04:55)
[2025-09-07 05:17] VITALS: PULSE 69
[2025-09-07 05:20] VITALS: BMI 26.1
[2025-09-07 06:04] LABS: Hematocrit 42.6 % (37-53); Hemoglobin 13.90 g/dL (11.27-16.99); Mean Corpuscular HGB Conc 32.6 g/dL (30-55); Mean Corpuscular Hemoglobin 26.2 pg (27-33); Mean Corpuscular Volume 80.2 fl (82-101); Nucleated Red Blood Cells % 0 %; Platelet Count 138 10^3/cmm (157-399); Red Blood Count 5.31 10^6/uL (3.85-5.65); White Blood Count 6.16 10^3/uL (3.29-11.43)
[2025-09-07 06:20] LABS: Anion Gap 13.9 (5-19); Blood Urea Nitrogen 16 mg/dL (6-20); Calcium 9.3 mg/dL (8.5-10.5); Carbon Dioxide 24 mmol/L (22-29); Chloride 104 mmol/L (98-107); Glucose 102 mg/dL (65-115); Osmolality Calculated 287 mOsm/kg (285-295); Potassium 3.9 mmol/L (3.5-5.1); Sodium 138 mmol/L (136-145)
[2025-09-07 08:00] VITALS: BP 130/77; PULSE 70; RESP 16; TEMP 36.7; O2SAT 93
[2025-09-07] MEDS: cefepime 2,000 mg SDV 2000 MG IVP (09:47)
[2025-09-07 12:00] VITALS: BP 133/78; PULSE 73; RESP 17; TEMP 36.7; O2SAT 93
[2025-09-07 14:01] VITALS: BP 133/78; PULSE 73; RESP 17; TEMP 36.6; O2SAT 93
--- NOTE | 2025-09-07 19:18 | PM.DCS ---
Discharge Providers Date of Admission: 09/02/25 10:33 Date of Discharge: September 07, 2025 Attending Provider at Admission: Alfonso Napier MD Attending Provider at Discharge: Napoleon Cuellar MD Primary Care Provider: Oliver Dempsey MD Diagnoses at Discharge Discharge Diagnosis 1. Status post below-knee amputation of left lower extremity: 2. Wound infection: 3. Wound dehiscence, surgical: Reason for Visit Reason for Visit: Left Leg Pain Brief History: As per the previous retrospective notes of the admitting physician: 59-year-old gentleman with past medical history of PAD, DVT post IVC filter placement, heart failure with improved ejection fraction, ICD, type 2 diabetes mellitus, hypertension, s/p left BKA in May/2025 presents to the ER today because of wound infection at stump site while he continues to follow-up with wound care as an outpatient with concerns for possible acute on chronic osteomyelitis. Patient had had chronic nonhealing wounds of the left lower extremity which had grown Pseudomonas, strep agalactiae, Enterobacter erogenous and MRSA. The patient comes in today after missing wound care appointments with Dr. Swartz due to possibility of bedbugs. He had his last visit with wound care on . His niece whose age 30 and stay at home changed his dressing on Sunday and was going to change it today but Kennedy felt that it had become infected and she encouraged him to go to the hospital. Patient has a wound culture from 07/06/2025 growing Pseudomonas aeruginosa. He states that he lives at home with niece who is age 30s and her children ages 12, 13, 15 and 16. No one else has had itching or signs of bedbugs. Hospital Course Hospital Course Patient admitted as a case of chronic osteomyelitis and was followed by the ID physician along with orthopedics.Patient was treated with IV antibiotics. PICC line was placed. Orthopedics advised for aggressive medical management with antibiotics and to follow him as outpatient. Patient blood cultures remain negative till date and wound culture showed few Gram negative rods, for detailed report refer to the microbiology section. He was discharged on cefepime 2 g twice daily and IV vancomycin 1 g twice daily for a total duration of 6 weeks as per recommended by the infectious disease specialist. PICC line placed and patient was transitioned to SNF at the time of discharge with further follow-up provided with ID and orthopedics. Medications were reconciled after confirmation and according to patient comorbidities and appropriate follow-ups and referrals were provided at the time of discharge Patient condition has been discussed at length with the patient/family, I have independently reviewed the chart labs imaging/diagnostics/EKG. the goals of care and code status with the patient/family/NOK/legal patient support representative, and documented accordingly. The management has been done according to the current clinical condition with respect to patient goals of care and based on recommendations/guidelines. The patient/family has been informed about the current condition and further plan of care. Agreed with the plan of care and understood without any language barrier. Every effort was made to ensure accuracy of chaser helper. Any obvious errors or omissions should be clarified with the author of the document. Physical Exam Narrative: General: Alert and oriented, lying comfortably without any distress HEENT: Normocephalic, atraumatic, grossly unremarkable exam Cardio: normal rate rhythm, normal S1-S2 without any murmurs, rubs, or gallops and JVD normal Respiratory: normal vascular breathing on auscultation without any wheezes, stridor, rhonchi GI: Abdomen soft, nontender, nondistended, normoactive bowel sounds present all 4 quadrants, Neuro: intact cranial nerves motor and sensory and cerebellar/coordination function without any focal neurological deficit Behavior: Appropriate and cooperative Extremities: Adequate palpable pulses, left BKA stump with nonhealing wound covered by dressing, I personally reviewed the images at the time of admission from Dr. Thomas. Discharge Data Studies Completed and Pending Completed Studies During Hospitalization Category Date Time Status CT lower leg LT w con [id number] Routine Cat Scan 09/02/25 00:03 Completed CXRP [XR chest 1V portable [id number]] Routine Exams 09/04/25 07:00 Completed XR tibia fibula LT 2V [id number] Stat Exams 09/01/25 20:42 Completed US soft tissue and or extremity [US soft tissue/ Ultrasound 09/02/25 10:35 Completed extremity [id number]] Routine Radiology Impressions Tibia/Fibula X-Ray 09/01/25 20:42 IMPRESSION: Yafkh-inp-jppo amputation stump demonstrates air communicating between the anterior skin surface in the bony stump, which may represent a open sinus tract. COMMENTS: If symptoms persist or progress, or if there is a high clinical index of suspicion for amputation stump osteomyelitis, follow-up nonurgent MRI could be considered. Lower Extremity CT 09/02/25 00:03 IMPRESSION: 1. Below-knee amputation. Skin thickening and subcutaneous edema at the stump, with wound measuring approximately 1.3 cm deep. Correlate with physical exam. No drainable fluid collection or abscess. 2. Periosteal new bone formation along the distal tibia and fibula stump, which may be secondary to chronic osteomyelitis. Consider MRI for further evaluation. Soft Tissue Ultrasound 09/02/25 10:35 IMPRESSION: Unremarkable US. Chest X-Ray 09/04/25 07:00 IMPRESSION: Right arm PICC line placement in position ready for use. Laboratory Results WBC 6.16 10^3/uL (3.29-11.43) 09/07/25 05:14 RBC 5.31 10^6/uL (3.85-5.65) 09/07/25 05:14 Hgb 13.90 g/dL (11.27-16.99) 09/07/25 05:14 Hct 42.6 % (37-53) 09/07/25 05:14 MCV 80.2 fl (82-101) L 09/07/25 05:14 MCH 26.2 pg (27-33) L 09/07/25 05:14 MCHC 32.6 g/dL (30-55) 09/07/25 05:14 RDW 14.6 % (12.1-15.1) 09/07/25 05:14 Plt Count 138 10^3/cmm (157-399) L 09/07/25 05:14 MPV 10.5 fL (7.4-10.4) H 09/07/25 05:14 Neut % (Auto) 56.8 % 09/07/25 05:14 Lymph % (Auto) 29.1 % 09/07/25 05:14 [place] % (Auto) 8.8 % 09/07/25 05:14 Eos % (Auto) 4.5 % 09/07/25 05:14 Baso % (Auto) 0.5 % 09/07/25 05:14 Neut # (Auto) 3.50 10^3/uL (1.8-7.7) 09/07/25 05:14 Lymph # (Auto) 1.8 10^3/uL (0.8-4.8) 09/07/25 05:14 [place] # (Auto) 0.5 10^3/uL (0.2-0.9) 09/07/25 05:14 Eos # (Auto) 0.3 10^3/uL (0.0-0.8) 09/07/25 05:14 Baso # (Auto) 0.0 10^3/uL (0.0-0.1) 09/07/25 05:14 Nucleated RBC % (auto) 0 % 09/07/25 05:14 Nucleated RBCs # 0.0 /100WBC 09/07/25 05:14 ESR 53 mm/hr (0-10) H 09/01/25 18:53 Sodium 138 mmol/L (136-145) 09/07/25 05:14 Potassium 3.9 mmol/L (3.5-5.1) 09/07/25 05:14 Chloride 104 mmol/L (98-107) 09/07/25 05:14 Carbon Dioxide 24 mmol/L (22-29) 09/07/25 05:14 Anion Gap 13.9 (5-19) 09/07/25 05:14 BUN 16 mg/dL (6-20) 09/07/25 05:14 Creatinine 0.7 mg/dL (0.7-1.2) 09/07/25 05:14 GFR Calculation 115.8 mL/min (90-130) 09/07/25 05:14 Glucose 102 mg/dL (65-115) 09/07/25 05:14 POC Glucose 129 mg/dL (70-110) H 09/07/25 11:40 Calculated Osmolality 287 mOsm/kg (285-295) 09/07/25 05:14 Calcium 9.3 mg/dL (8.5-10.5) 09/07/25 05:14 Magnesium 1.9 mg/dL (1.7-2.3) 09/05/25 04:17 Iron 68 ug/dL (59-158) 09/02/25 09:27 TIBC 331 mcg/dl 09/02/25 09:27 % Saturation 20.5 % (20-50) 09/02/25 09:27 Unsat Iron Binding 263 ug/dL (112-347) 09/02/25 09:27 Total Bilirubin 0.5 mg/dL (0.15-1.2) 09/05/25 04:17 AST 25 U/L (0-40) 09/05/25 04:17 ALT 21 U/L (0-41) 09/05/25 04:17 Alkaline Phosphatase 103 U/L (40-130) 09/05/25 04:17 C-Reactive Protein 11.1 mg/L (0.0-4.9) H 09/01/25 18:53 Total Protein 8.3 g/dL (6.6-8.7) 09/05/25 04:17 Albumin 4.0 g/dL (3.5-5.2) 09/05/25 04:17 Globulin 4.3 g/dL (1.3-4.6) 09/05/25 04:17 Vitamin B12 414 pg/mL (232-1245) 09/02/25 09:27 Folate > 20.0 ng/mL (4.5-32.2) 09/03/25 06:08 Procalcitonin 2.21 ng/mL (0-0.5) H 09/02/25 09:27 Vancomycin Trough 15.5 ug/mL (10-15) H 09/07/25 08:32 Vitals Last Vital Signs Temp 98 F 09/07/25 14:01 Pulse 73 09/07/25 14:01 Resp 17 09/07/25 14:01 BP 133/78 09/07/25 14:01 Pulse Ox 93 09/07/25 14:01 O2 Del Method Room Air 09/07/25 12:00 O2 Flow Rate 0 09/02/25 20:00 Discharge Plan Discharge Patient Disposition: Xfer SNF Condition: Stable Prescriptions: New cefepime 2 gram Recon Soln 2,000 mg IVP Q12H 38 Days Qty: 76 0RF vancomycin in 0.9 % sodium chl 1 gram/200 mL piggyback 1 g IV Q12H 38 Days Continued oxycodone-acetaminophen [Percocet] 5-325 mg tablet 1 tab PO BID PRN (Reason: pain) 7 Days Qty: 28 0RF acetaminophen [Tylenol] 325 mg tablet 650 mg PO QID PRN (Reason: Pain) aspirin 81 mg tablet,delayed release (DR/EC) 81 mg PO DAILY Qty: 90 1RF spironolactone 25 mg tablet 12.5 mg PO DAILY Qty: 90 1RF thiamine HCl (vitamin B1) 100 mg tablet 100 mg PO DAILY Qty: 90 1RF Jardiance 10 mg tablet See Rx Instructions .ROUTE .COMPLEX Qty: 30 1RF Dose Instruction: TAKE 1 TABLET BY MOUTH EVERY MORNING Rx Instructions: TAKE 1 TABLET BY MOUTH EVERY MORNING Eliquis 5 mg tablet See Rx Instructions .ROUTE .COMPLEX Qty: 60 1RF Dose Instruction: TAKE 1 TABLET BY MOUTH TWICE DAILY Rx Instructions: TAKE 1 TABLET BY MOUTH TWICE DAILY metoprolol succinate 25 mg tablet extended release 24 hr See Rx Instructions .ROUTE .COMPLEX Qty: 30 1RF Dose Instruction: TAKE 1 TABLET BY MOUTH DAILY Rx Instructions: TAKE 1 TABLET BY MOUTH DAILY folic acid 1 mg tablet See Rx Instructions .ROUTE .COMPLEX Qty: 30 1RF Dose Instruction: TAKE 1 TABLET BY MOUTH DAILY Rx Instructions: TAKE 1 TABLET BY MOUTH DAILY multivitamin with folic acid [Thera] 400 mcg Tablet 1 tab PO DAILY Qty: 30 0RF insulin lispro [Humalog U-100 Insulin] 100 unit/mL Solution See Rx Instructions .ROUTE .COMPLEX Qty: 10 0RF Rx Instructions: Inject, subcut, 3 times daily, after meals, based on low-dose sliding scale amiodarone 200 mg tablet 200 mg PO DAILY naloxone [Narcan] 4 mg/actuation spray,non-aerosol See Rx Instructions .ROUTE .COMPLEX Rx Instructions: CALL 911. Use one full spray in one nostril one time. Repeat every 2-3 minutes as needed if no or minimal response. Blocker Heated [employer] Forms OK for DC: Infectious Disease and Orthopedics Discharge Order = DC NOW: Discharge Order (Routine); Ordered 09/07/25 Ordered By: Napoleon Cuellar Referrals: [facility] [Provider Group, Infectious Disease] - 10/08/25 10:00 am Darrian Yun DO [Physician, Orthopedics] - 09/29/25 1:30 pm Referral Note: Oliver Dempsey MD [Primary Care Provider, Family Practice] - 2 weeks Referral Note: post discharge follow up Discharge Activity: Limit activity as instructed Patient Instructions: Opioid Safety, Pain Management, Patient Portal & Annie Instructions Activity Restrictions/Additional Instructions: Orthopedic discharge instructions: Recommend nonweightbearing on the left BKA stump Continue with wound care daily wet-to-dry dressing changes Continue with antibiotics per primary team Pain control per primary Orthopedic follow-up in 2 weeks Report to the emergency department or contact office any worsening symptoms Follow-up with wound care Discharge Attestations Time Spent in Discharge Care*: greater than 30 min Specific Discharge Activities: educating patient, educating and/or supporting family/caregiver, discussing with pcp/other providers, discussing with patient case coordinator/social workers/dc planners, documenting/other paperwork and evaluating patient/reviewing data Status at Discharge: Cognitive status at discharge: cognitively intact, Behavioral status at discharge: cooperative, Functional status at discharge: other assisted ambulation, Overall status at discharge: patient is progressing back to baseline Quality Metrics Clinical Quality Measures [ No reported AMI, CVA or VTE this stay] Coding Level of Care Code Acute Code for Chg Fwd Diagnoses Status post below-knee amputation of left lower extremity Z89.512 Wound infection T14.8XXA; L08.9 Wound dehiscence, surgical T81.31XA
== END 2025-09-07 14:18 | disposition skilled nursing facility (03) | DRG 349 ==
LOC: ER 21:43 → MEDSURG 22:38
PROVIDERS: Family Medicine; Internal Medicine; Student in an Organized Health Care Education/Training Program; Admitting Provider Internal Medicine; Emergency Provider Emergency Medicine; PCP Family Medicine; Visit Provider Student in an Organized Health Care Education/Training Program
DX: T87.81 Dehiscence of amputation stump (principal); Y83.5 Amputation of limb(s) as the cause of abnormal reaction of the patient, or of later complication, without mention of misadventure at the time of the procedure; T87.44 Infection of amputation stump, left lower extremity; E11.51 Type 2 diabetes mellitus with diabetic peripheral angiopathy without gangrene; E11.69 Type 2 diabetes mellitus with other specified complication; M86.152 Other acute osteomyelitis, left femur; Z79.4 Long term (current) use of insulin; Z79.84 Long term (current) use of oral hypoglycemic drugs; B96.5 Pseudomonas (aeruginosa) (mallei) (pseudomallei) as the cause of diseases classified elsewhere; F17.210 Nicotine dependence, cigarettes, uncomplicated; I11.0 Hypertensive heart disease with heart failure; I50.20 Unspecified systolic (congestive) heart failure; I48.20 Chronic atrial fibrillation, unspecified; I82.512 Chronic embolism and thrombosis of left femoral vein; Z79.01 Long term (current) use of anticoagulants; Z95.810 Presence of automatic (implantable) cardiac defibrillator; Z79.82 Long term (current) use of aspirin
CPT/HCPCS: 36415; 36416; 36573; 71045; 73590; 73701; 76882; 80048; 80053; 80202; 82607; 82746; 82962; 83540; 83550; 83735; 84145; 85025; 85651; 86140; 87040; 87070; 87075; 87205; 96365; 96372; 96375; 99285; G0378; J0692; J1815; J3372; J3373; J7050; J9999

== ENCOUNTER 2025-09-18 05:49 | Emergency (ER) | payer MEDICAID, SELFPAY ==
--- OUTSIDE RECORDS SUMMARY | 2024-07-09 05:00 | XMS_ITS ---
Author Organization [facility] Address [address] [place] [address] [phone] Care Team Providers Care Cork Insulation Setter Name Role Phone Zack Geller Primary Care Provider Loreto Ahn Unavailable [phone] REASON FOR VISIT [facility] f/u, DM f/u, A1c needed Social History Sex Assigned At : Social History Observation Description Sex Assigned At Male Encounters Encounter Location Date Provider Diagnosis [facility] [address] [place] [address] [phone] 07/09/2024 Loreto Ahn Plan Of Treatment No Information Progress Notes * Gabe SOLORZANOOB: 7 (59 yo M)Acc No.[id number]:07/09/2024 Patient: Zulma Andrew mcdonnell Provider: Venkatesh Ahn APN :1965 A ge:58 Y S ex:Male Date:07/09/2024 Address:[address] [place], [place] [phone] Pcp:Zack Geller Subjective: * Chief Complaints: * [...] APN Date: Generated for Sergey ng/Farichag/eTransmitting on: 11/19/2024 06:12 AM HANDBAG DESIGNER
[2025-09-18] VITALS (9 sets, daily range): BP systolic 129–162; BP diastolic 72–102; PULSE 71–78; RESP 14–20; TEMP 36.6; O2SAT 91–98; BMI 27.3
--- NOTE | 2025-09-18 05:19 | ED_ITS ---
Documented by User: Abel Pollack, 09/25/25 17:54 HPI - Chest Pain 2 General: Chief Complaint: Chest Pain Stated Complaint: chest pain Time Seen by Provider: 09/18/25 05:55 History of Present Illness: This 59-year-old senior living resident presents with chest pain. The patient reports experiencing chest discomfort that has occurred multiple times previously. The pain is described as being felt in the upper chest area and sometimes radiating to other locations. The discomfort has been severe enough to wake the patient from sleep. Associated symptoms include mild shortness of breath and occasional pain with breathing. The patient denies current chest pain at the time of evaluation. The patient has a history of similar episodes and reports having experienced this type of pain several times in the past. There is an intermittent cough present, though not chronic in nature. Related Data Home Medications ?Medication ?Instructions ?Recorded ?Confirmed acetaminophen 325 mg tablet 650 mg PO QID PRN Pain 09/21/25 (Tylenol) amiodarone 200 mg tablet 200 mg PO DAILY 09/02/25 naloxone 4 mg/actuation nasal See Rx Instructions .Rou te .COMPLEX 09/02/25 09/21/25 spray (Narcan) Previous Rx's ?Medication ?Instructions ?Recorded aspirin 81 mg tablet,delayed 81 mg PO DAILY #90 tabs 0 01/07/25 release spironolactone 25 mg tablet 12.5 mg (1/2 x 25 mg) PO D AILY #90 01/07/25 tabs thiamine HCl (vitamin B1) 100 mg 100 mg PO DAILY #90 t abs 01/08/25 tablet multivitamin with folic acid 400 1 tab PO DAILY #30 ta bs 02/01/25 mcg tablet (Thera) insulin lispro 100 unit/mL See Rx Instructions .Route 06/02/25 subcutaneous solution (Humalog .COMPLEX #10 mL U-100 Insulin) oxycodone-acetaminophen 5 mg-325 1 tab PO BID PRN pain 7 days #28 06/25/25 mg tablet (Percocet) tabs apixaban 5 mg tablet (Eliquis) See Rx Instructions .[place] 08/24/25 .COMPLEX #60 tabs empagliflozin 10 mg tablet See Rx Instructions .Route 08/24/25 (Jardiance) .COMPLEX #30 tabs folic acid 1 mg tablet See Rx Instructions .Route 1 2/01/25 .COMPLEX #30 tabs metoprolol succinate 25 mg See Rx Instructions .Route 08/24/25 tablet,extended release 24 hr .COMPLEX #30 tabs cefepime 2 gram solution for 2,000 mg IVP Q12H 38 days #76 ea 09/07/25 injection vancomycin 1 gram/200 mL in 0.9 % 1 g (200 mL) IV Q12H 38 days 09/07/25 sod. chloride intravenous piggyback Allergies Allergy/AdvReac Type Severity Reaction Status Date / Time No Known Allergies Allergy Unverified 09/18/25 05:14 PFS ED 2 PFSH: Medical History (Updated 09/18/25 @ 09:07 by Sridhar Downing MD) Wound dehiscence, surgical Presence of IVC filter Tobacco use disorder Heart failure with mildly reduced ejection fraction (HFmrEF) Elevated blood pressure reading with diagnosis of hypertension Alcoholism with alcohol dependence Diabetes type 2, controlled Neuropathy History of non-ST elevation myocardial infarction (NSTEMI) Peripheral vascular disease Chronic atrial fibrillation Primary hypertension CHF (congestive heart failure) LVEF 64% 01/30/2025 Surgical History Hx of umbilical hernia repair 07/05/23 lap repair of umbilical hernia with mesh- Dr Obrien History of implantable cardioverter-defibrillator (ICD) placement Family History Mother CAD (coronary artery disease) Social History Smoking and tobacco/nicotine status: current every day tobacco/nicotine user cigarettes [ Other cigarette details: 1.5 pack per day x 40 years, currently down to 3-4 cig/day] Alcohol intake: former Year of sobriety/quit date alcohol: 2024 Former alcohol use details: Stopped for 4 months as of 09/01/2025 Substance/Drug Use: former Date of last use: marijuana in 2021 Additional social history: Patient was full code as discussed with Alfonso Napier MD on 09/01/2025 Household members: children Marital status: Single Number of children: 2 Number of grandchildren: 0 Current occupational status: disabled Special duc needs: No Agree to transfusion: Yes Physical Exam 2 Const: COMMON NORMALS: no acute distress GENERAL APPEARANCE: cooperative, frail appearing and appears older than stated age ORIENTATION/CONSCIOUSNESS: Yes awake, Yes oriented to person and Yes oriented to place HENMT: COMMON NORMALS: normocephalic and atraumatic HEAD & SCALP: n ormocephalic and atraumatic FACE & SINUS: face symmetric Eye: COMMON NORMALS: Equal, round and reactive pupils present and EOMs intact bilaterally PUPIL: Yes Equal, round and reactive pupils present Neck/C-Spine: GENERAL: Yes trachea midline Chest: CHEST: Yes Symmetrical chest wall rise Resp: COMMON NORMALS: normal respiratory effort and No use of accessory muscles Cardio: COMMON NORMALS: regular rate and regular rhythm RATE: regular rate RHYTHM: regular rhythm GI: OTHER: Nontender. Extremity: NARRATIVE EXTREMITY EXAM: Left above-knee amputation. No significant edema on the right Neuro: SENSORIUM/ORIENTATION: Yes oriented to person and Yes oriented to place Course 2 Vital Signs: Vital signs: Vital Signs Temperature 97.8 F 09/18/25 07:15 Pulse Rate 71 09/18/25 10:55 Respiratory Rate 20 H 09/18/25 09:45 Blood Pressure 162/87 09/18/25 10:55 Pulse Oximetry 97 09/18/25 10:55 Oxygen Delivery Me thod Room Air 09/18/25 07:15 MDM - Chest Pain Medical Decision Making The patient is a somewhat poor historian. His chest pain is relieved after aspirin and nitroglycerin en route to the hospital on the ambulance. He is nontender. His EKG from 0511, read 0513 shows an electronically paced rhythm. Ventricular paced. Rate 75. QTc is 497. No significant ST-T wave change. He is afebrile. His vitals are stable. Laboratories pending. He will be checked out to the oncoming physician at shift change. Lab Data 09/18/25 05:58 09/18/25 05:58 Laboratory Results WBC 5.98 10^3/uL (3.29-11.43) 09/18/25 05:58 RBC 5.17 10^6/uL (3.85-5.65) 09/18/25 05:58 Hgb 13.60 g/dL (11.27-16.99) 09/18/25 05:58 Hct 42.1 % (37-53) 09/18/25 05:58 MCV 81.4 fl (82-101) L 09/18/25 05:58 MCH 26.3 pg (27-33) L 09/18/25 05:58 MCHC 32.3 g/dL (30-55) 09/18/25 05:58 RDW 14.6 % (12.1-15.1) 09/18/25 05:58 Plt Count 158 10^3/cmm (157-399) 09/18/25 05:58 MPV 9.3 fL (7.4-10.4) 09/18/25 05:58 Neut % (Auto) 57.0 % 09/18/25 05:58 Lymph % (Auto) 29.9 % 09/18/25 05:58 [place] % (Auto) 8.5 % 09/18/25 05:58 Eos % (Auto) 3.8 % 09/18/25 05:58 Baso % (Auto) 0.5 % 09/18/25 05:58 Neut # (Auto) 3.40 10^3/uL (1.8-7.7) 09/18/25 05:58 Lymph # (Auto) 1.8 10^3/uL (0.8-4.8) 09/18/25 05:58 [place] # (Auto) 0.5 10^3/uL (0.2-0.9) 09/18/25 05:58 Eos # (Auto) 0.2 10^3/uL (0.0-0.8) 09/18/25 05:58 Baso # (Auto) 0.0 10^3/uL (0.0-0.1) 09/18/25 05:58 Nucleated RBC % (auto) 0 % 09/18/25 05:58 Nucleated RBCs # 0.0 /100WBC 09/18/25 05:58 Sodium 140 mmol/L (136-145) 09/18/25 05:58 Potassium 3.8 mmol/L (3.5-5.1) 09/18/25 05:58 Chloride 105 mmol/L (98-107) 09/18/25 05:58 Carbon Dioxide 21 mmol/L (22-29) L 09/18/25 05:58 Anion Gap 17.8 (5-19) 09/18/25 05:58 BUN 10 mg/dL (6-20) 09/18/25 05:58 Creatinine 0.8 mg/dL (0.7-1.2) 09/18/25 05:58 GFR Calculation 99.3 mL/min (90-130) 09/18/25 05:58 Glucose 146 mg/dL (65-115) H 09/18/25 05:58 Calculated Osmolality 292 mOsm/kg (285-295) 09/18/25 05:58 Calcium 9.1 mg/dL (8.5-10.5) 09/18/25 05:58 Total Bilirubin 0.3 mg/dL (0.15-1.2) 09/18/25 05:58 AST 32 U/L (0-40) 09/18/25 05:58 ALT 52 U/L (0-41) H 09/18/25 05:58 Alkaline Phosphatase 120 U/L (40-130) 09/18/25 05:58 Troponin T Baseline 14 ng/L (0-15) 09/18/25 05:58 Troponin T 60 Minute 12.94 ng/L (0-15) 09/18/25 08:35 Delta Troponin T -1.06 ABS# (0-10) L 09/18/25 08:35 NT-Pro-B Natriuret Pep 104 pg/mL (0-125) 09/18/25 05:58 Total Protein 7.7 g/dL (6.6-8.7) 09/18/25 05:58 Albumin 4.2 g/dL (3.5-5.2) 09/18/25 05:58 Globulin 3.5 g/dL (1.3-4.6) 09/18/25 05:58 Lipase 21 U/L (13-60) 09/18/25 05:58 XR interpretation done by ED provider, pending radiology final review EKG Data EKG 1: Interpretation: EKG from 0511, read 0513 shows an electronically paced rhythm. Ventricular paced. Rate 75. QTc is 497. No significant ST-T wave change. Discharge Plan Discharge Patient Disposition: Home Clinical Impression: Chest pain Condition: Stable Prescriptions: No Action oxycodone-acetaminophen [Percocet] 5-325 mg tablet 1 tab PO BID PRN (Reason: pain) 7 Days Qty: 28 0RF acetaminophen [Tylenol] 325 mg tablet 650 mg PO QID PRN (Reason: Pain) aspirin 81 mg tablet,delayed release (DR/EC) 81 mg PO DAILY Qty: 90 1RF spironolactone 25 mg tablet 12.5 mg PO DAILY Qty: 90 1RF thiamine HCl (vitamin B1) 100 mg tablet 100 mg PO DAILY Qty: 90 1RF Jardiance 10 mg tablet See Rx Instructions .ROUTE .COMPLEX Qty: 30 1RF Dose Instruction: TAKE 1 TABLET BY MOUTH EVERY MORNING Rx Instructions: TAKE 1 TABLET BY MOUTH EVERY MORNING Eliquis 5 mg tablet See Rx Instructions .ROUTE .COMPLEX Qty: 60 1RF Dose Instruction: TAKE 1 TABLET BY MOUTH TWICE DAILY Rx Instructions: TAKE 1 TABLET BY MOUTH TWICE DAILY metoprolol succinate 25 mg tablet extended release 24 hr See Rx Instructions .ROUTE .COMPLEX Qty: 30 1RF Dose Instruction: TAKE 1 TABLET BY MOUTH DAILY Rx Instructions: TAKE 1 TABLET BY MOUTH DAILY folic acid 1 mg tablet See Rx Instructions .ROUTE .COMPLEX Qty: 30 1RF Dose Instruction: TAKE 1 TABLET BY MOUTH DAILY Rx Instructions: TAKE 1 TABLET BY MOUTH DAILY multivitamin with folic acid [Thera] 400 mcg Tablet 1 tab PO DAILY Qty: 30 0RF insulin lispro [Humalog U-100 Insulin] 100 unit/mL Solution See Rx Instructions .ROUTE .COMPLEX Qty: 10 0RF Rx Instructions: Inject, subcut, 3 times daily, after meals, based on low-dose sliding scale amiodarone 200 mg tablet 200 mg PO DAILY naloxone [Narcan] 4 mg/actuation spray,non-aerosol See Rx Instructions .ROUTE .COMPLEX Rx Instructions: CALL 911. Use one full spray in one nostril one time. Repeat every 2-3 minutes as needed if no or minimal response. cefepime 2 gram Recon Soln 2,000 mg IVP Q12H 38 Days Qty: 76 0RF vancomycin in 0.9 % sodium chl 1 gram/200 mL piggyback 1 g IV Q12H 38 Days Discharge Orders: Discharge ED (Routine); Ordered 09/18/25 Ordered By: Sridhar Downing Referrals: Oliver Dempsey MD [Primary Care Provider, Family Practice] - 4-7 days Discharge Diet: Advance as tolerated Discharge Activity: Resume usual activity Patient Instructions: Chest Pain (ED) Print Language: Malawian Coding Level of Care Code ED Transportation Refrigeration Technician for Chg Fwd Heart Score HEART Score RESULT HEART Score: 2 Documented by User: Sridhar Downing MD 09/18/25 09:35 HPI - Chest Pain 2 General: Chief Complaint: Chest Pain Stated Complaint: chest pain Time Seen by Provider: 09/18/25 05:55 Related Data Home Medications ?Medication ?Instructions ?Recorded ?Confirmed acetaminophen 325 mg tablet 650 mg PO QID PRN Pain 09/21/25 (Tylenol) amiodarone 200 mg tablet 200 mg PO DAILY 09/02/25 naloxone 4 mg/actuation nasal See Rx Instructions .Rou te .COMPLEX 09/02/25 09/21/25 spray (Narcan) Previous Rx's ?Medication ?Instructions ?Recorded aspirin 81 mg tablet,delayed 81 mg PO DAILY #90 tabs 0 01/07/25 release spironolactone 25 mg tablet 12.5 mg (1/2 x 25 mg) PO D AILY #90 01/07/25 tabs thiamine HCl (vitamin B1) 100 mg 100 mg PO DAILY #90 t abs 01/08/25 tablet multivitamin with folic acid 400 1 tab PO DAILY #30 ta bs 02/01/25 mcg tablet (Thera) insulin lispro 100 unit/mL See Rx Instructions .Route 06/02/25 subcutaneous solution (Humalog .COMPLEX #10 mL U-100 Insulin) oxycodone-acetaminophen 5 mg-325 1 tab PO BID PRN pain 7 days #28 06/25/25 mg tablet (Percocet) tabs apixaban 5 mg tablet (Eliquis) See Rx Instructions .Ro [place] 08/24/25 .COMPLEX #60 tabs empagliflozin 10 mg tablet See Rx Instructions .Route 08/24/25 (Jardiance) .COMPLEX #30 tabs folic acid 1 mg tablet See Rx Instructions .Route 1 10/25/24 .COMPLEX #30 tabs metoprolol succinate 25 mg See Rx Instructions .Route 08/24/25 tablet,extended release 24 hr .COMPLEX #30 tabs cefepime 2 gram solution for 2,000 mg IVP Q12H 38 days #76 ea 09/07/25 injection vancomycin 1 gram/200 mL in 0.9 % 1 g (200 mL) IV Q12H 38 days 09/07/25 sod. chloride intravenous piggyback Allergies Allergy/AdvReac Type Severity Reaction Status Date / Time No Known Allergies Allergy Unverified 09/18/25 05:14 PFSH ED 2 PFSH: Medical History (Updated 09/18/25 @ 09:07 by Sridhar Downing MD) Wound dehiscence, surgical Presence of IVC filter Tobacco use disorder Heart failure with mildly reduced ejection fraction (HFmrEF) Elevated blood pressure reading with diagnosis of hypertension Alcoholism with alcohol dependence Diabetes type 2, controlled Neuropathy History of non-ST elevation myocardial infarction (NSTEMI) Peripheral vascular disease Chronic atrial fibrillation Primary hypertension CHF (congestive heart failure) LVEF 64% 01/30/2025 Surgical History Hx of umbilical hernia repair 07/05/23 lap repair of umbilical hernia with mesh- Dr Obrien History of implantable cardioverter-defibrillator (ICD) placement Family History Mother CAD (coronary artery disease) Social History Smoking and tobacco/nicotine status: current every day tobacco/nicotine user cigarettes [ Other cigarette details: 1.5 pack per day x 40 years, currently down to 3-4 cig/day] Alcohol intake: former Year of sobriety/quit date alcohol: 2024 Former alcohol use details: Stopped for 4 months as of 09/01/2025 Substance/Drug Use: former Date of last use: marijuana in 2021 Additional social history: Patient was full code as discussed with Alfonso Napier MD on 09/01/2025 Household members: children Marital status: Single Number of children: 2 Number of grandchildren: 0 Current occupational status: disabled Special duc needs: No Agree to transfusion: Yes Course 2 Vital Signs: Vital signs: Vital Signs Temperature 97.8 F 09/18/25 07:15 Pulse Rate 71 09/18/25 10:55 Respiratory Rate 20 H 09/18/25 09:45 Blood Pressure 162/87 09/18/25 10:55 Pulse Oximetry 97 09/18/25 10:55 Oxygen Delivery Me thod Room Air 09/18/25 07:15 [facility] - Chest Pain Medical Decision Making The patient is a somewhat poor historian. His chest pain is relieved after aspirin and nitroglycerin en route to the hospital on the ambulance. He is nontender. His EKG from 0511, read 0513 shows an electronically paced rhythm. Ventricular paced. Rate 75. QTc is 497. No significant ST-T wave change. He is afebrile. His vitals are stable. Laboratories pending. He will be checked out to the oncoming physician at shift change. Took patient over from Dr. Pollack he is here with chest pain differential includes pulm emboli, pneumonia, pneumothorax, ACS. Chest x-ray interpreted by me showed no acute abnormalities lab work showed no significant abnormalities his heart score is 2 his troponins both here were negative his chest pain is very atypical in nature no signs of ACS or pulm emboli. He has been well-appearing here he stable for discharge follow-up with PCP return if worsening. Lab Data 09/18/25 05:58 09/18/25 05:58 Laboratory Results WBC 5.98 10^3/uL (3.29-11.43) 09/18/25 05:58 RBC 5.17 10^6/uL (3.85-5.65) 09/18/25 05:58 Hgb 13.60 g/dL (11.27-16.99) 09/18/25 05:58 Hct 42.1 % (37-53) 09/18/25 05:58 MCV 81.4 fl (82-101) L 09/18/25 05:58 MCH 26.3 pg (27-33) L 09/18/25 05:58 MCHC 32.3 g/dL (30-55) 09/18/25 05:58 RDW 14.6 % (12.1-15.1) 09/18/25 05:58 Plt Count 158 10^3/cmm (157-399) 09/18/25 05:58 MPV 9.3 fL (7.4-10.4) 09/18/25 05:58 Neut % (Auto) 57.0 % 09/18/25 05:58 Lymph % (Auto) 29.9 % 09/18/25 05:58 [place] % (Auto) 8.5 % 09/18/25 05:58 Eos % (Auto) 3.8 % 09/18/25 05:58 Baso % (Auto) 0.5 % 09/18/25 05:58 Neut # (Auto) 3.40 10^3/uL (1.8-7.7) 09/18/25 05:58 Lymph # (Auto) 1.8 10^3/uL (0.8-4.8) 09/18/25 05:58 [place] # (Auto) 0.5 10^3/uL (0.2-0.9) 09/18/25 05:58 Eos # (Auto) 0.2 10^3/uL (0.0-0.8) 09/18/25 05:58 Baso # (Auto) 0.0 10^3/uL (0.0-0.1) 09/18/25 05:58 Nucleated RBC % (auto) 0 % 09/18/25 05:58 Nucleated RBCs # 0.0 /100WBC 09/18/25 05:58 Sodium 140 mmol/L (136-145) 09/18/25 05:58 Potassium 3.8 mmol/L (3.5-5.1) 09/18/25 05:58 Chloride 105 mmol/L (98-107) 09/18/25 05:58 Carbon Dioxide 21 mmol/L (22-29) L 09/18/25 05:58 Anion Gap 17.8 (5-19) 09/18/25 05:58 BUN 10 mg/dL (6-20) 09/18/25 05:58 Creatinine 0.8 mg/dL (0.7-1.2) 09/18/25 05:58 GFR Calculation 99.3 mL/min (90-130) 09/18/25 05:58 Glucose 146 mg/dL (65-115) H 09/18/25 05:58 Calculated Osmolality 292 mOsm/kg (285-295) 09/18/25 05:58 Calcium 9.1 mg/dL (8.5-10.5) 09/18/25 05:58 Total Bilirubin 0.3 mg/dL (0.15-1.2) 09/18/25 05:58 AST 32 U/L (0-40) 09/18/25 05:58 ALT 52 U/L (0-41) H 09/18/25 05:58 Alkaline Phosphatase 120 U/L (40-130) 09/18/25 05:58 Troponin T Baseline 14 ng/L (0-15) 09/18/25 05:58 Troponin T 60 Minute 12.94 ng/L (0-15) 09/18/25 08:35 Delta Troponin T -1.06 ABS# (0-10) L 09/18/25 08:35 NT-Pro-B Natriuret Pep 104 pg/mL (0-125) 09/18/25 05:58 Total Protein 7.7 g/dL (6.6-8.7) 09/18/25 05:58 Albumin 4.2 g/dL (3.5-5.2) 09/18/25 05:58 Globulin 3.5 g/dL (1.3-4.6) 09/18/25 05:58 Lipase 21 U/L (13-60) 09/18/25 05:58 Discharge Plan Discharge Patient Disposition: Home Clinical Impression: Chest pain Condition: Stable Prescriptions: No Action oxycodone-acetaminophen [Percocet] 5-325 mg tablet 1 tab PO BID PRN (Reason: pain) 7 Days Qty: 28 0RF acetaminophen [Tylenol] 325 mg tablet 650 mg PO QID PRN (Reason: Pain) aspirin 81 mg tablet,delayed release (DR/EC) 81 mg PO DAILY Qty: 90 1RF spironolactone 25 mg tablet 12.5 mg PO DAILY Qty: 90 1RF thiamine HCl (vitamin B1) 100 mg tablet 100 mg PO DAILY Qty: 90 1RF Jardiance 10 mg tablet See Rx Instructions .ROUTE .COMPLEX Qty: 30 1RF Dose Instruction: TAKE 1 TABLET BY MOUTH EVERY MORNING Rx Instructions: TAKE 1 TABLET BY MOUTH EVERY MORNING Eliquis 5 mg tablet See Rx Instructions .ROUTE .COMPLEX Qty: 60 1RF Dose Instruction: TAKE 1 TABLET BY MOUTH TWICE DAILY Rx Instructions: TAKE 1 TABLET BY MOUTH TWICE DAILY metoprolol succinate 25 mg tablet extended release 24 hr See Rx Instructions .ROUTE .COMPLEX Qty: 30 1RF Dose Instruction: TAKE 1 TABLET BY MOUTH DAILY Rx Instructions: TAKE 1 TABLET BY MOUTH DAILY folic acid 1 mg tablet See Rx Instructions .ROUTE .COMPLEX Qty: 30 1RF Dose Instruction: TAKE 1 TABLET BY MOUTH DAILY Rx Instructions: TAKE 1 TABLET BY MOUTH DAILY multivitamin with folic acid [Thera] 400 mcg Tablet 1 tab PO DAILY Qty: 30 0RF insulin lispro [Humalog U-100 Insulin] 100 unit/mL Solution See Rx Instructions .ROUTE .COMPLEX Qty: 10 0RF Rx Instructions: Inject, subcut, 3 times daily, after meals, based on low-dose sliding scale amiodarone 200 mg tablet 200 mg PO DAILY naloxone [Narcan] 4 mg/actuation spray,non-aerosol See Rx Instructions .ROUTE .COMPLEX Rx Instructions: CALL 911. Use one full spray in one nostril one time. Repeat every 2-3 minutes as needed if no or minimal response. cefepime 2 gram Recon Soln 2,000 mg IVP Q12H 38 Days Qty: 76 0RF vancomycin in 0.9 % sodium chl 1 gram/200 mL piggyback 1 g IV Q12H 38 Days Discharge Orders: Discharge ED (Routine); Ordered 09/18/25 Ordered By: Sridhar Downing Referrals: Oliver Dempsey MD [Primary Care Provider, Family Practice] - 4-7 days Discharge Diet: Advance as tolerated Discharge Activity: Resume usual activity Patient Instructions: Chest Pain (ED) Print Language: Malawian Coding Level of Care Code ED Transportation Refrigeration Technician for Chg Fwd Heart Score HEART Score Components History: Slightly Suspicous EKG: Normal Age: 45-64 yrs Risk Factors: 1 or 2 Risk Factors Troponin: Baseline Trop <16 ng/L HEART Score RESULT HEART Score: 2
--- NOTE | 2025-09-18 05:24 | ECG_ITS ---
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
--- NOTE | 2025-09-18 05:27 | XR_ITS ---
PROCEDURE INFORMATION: Exam: XR Chest Exam date and time: 09/18/2025 5:27 AM Age: 59 years old Clinical indication: Chest pressure; Prior surgery; Surgery date: 6+ months; Surgery type: Pacer. Clavicle fixation; C/O chest pain; Additional info: Cp TECHNIQUE: Imaging protocol: Radiologic exam of the chest. Views: 1 view. COMPARISON: No relevant prior studies available. FINDINGS: Tubes, catheters and devices: Multilead pacemaker/defibrillator. PICC line terminates in the SVC. Lungs: Unremarkable. No consolidation. Pleural spaces: Unremarkable. No pleural effusion. No pneumothorax. Heart/Mediastinum: Unremarkable. No cardiomegaly. Bones/joints: ORIF of the left clavicle. IMPRESSION: No acute cardiopulmonary disease. Thank you for allowing us to participate in the care of your patient. Dictated and Authenticated by: Al Capellan MD 09/18/2025 6:34 AM Central Time ([place] & [place]) [facility]
--- OUTSIDE RECORDS SUMMARY | 2025-09-18 06:12 | XMS_ITS | Clinical Summary ---
Author Organization [employer] Address [address] Attn: Epic [place] [address] Care Team Providers Care Logistics Operations Manager Name Role Phone Bhupinder Brooks MD Primary [...] 06/12/20 25 Active naloxone (NARCAN) 4 mg/spray [place], Non-Aerosol EMERGENCY USE ONLY: Administer 1 spray [...] left lower extremity 06/02/2025 Chronic osteomyelitis 06/02/2025 Social History Tobacco Use Types Packs/Day Years Used Date Smoking Tobacco: Every Day Cigarettes 1 7 Started: 2018 Smokeless Tobacco: Never Tobacco Cessation:Ready [...] on file 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 AVG GLUCOSE, A1C 160 mg/dL 06/05/2025 11:39 AM CDT [facility] Blood Venipuncture / Unknown 06/03/2025 2:15 PM CDT 06/03/2025 6:50 PM CDT Narrative [facility] [employer] [facility] - 06/05/2025 11:39 AM CDT HGB A1C INTERPRETATION NORMAL: <5.7% PRE-DIABETES: 5.7 - 6.4% DIABETES: 6.5% OR GREATER Holly Max MD CHEMISTRY ORDERABLES Poornima amy Result [facility] CLIA # [id number] [address] [place] [id number] from Last 3 Months or Most Recently Relevant to Health Maintenance Insurance MEDICAID [place] Advance Directives For more information, please contact: [phone] * Full Code (Latest Code Status on File) Date Activated Date Inactivated Comments 06/02/2025 1:42 PM 06/13/2025 8:48 PM Care Teams Logistics Operations Manager Relationship Specialty Start Date End Date Bhupinder Brooks MD [address] [place] [address] PCP - General 12/30/07
--- OUTSIDE RECORDS SUMMARY | 2025-09-18 06:12 | XMS_ITS | Patient Health Record ---
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 SS Disability Language Ecuadorean is your pref erred written and oral [...] about quitting Section Notes: Updated 04/07/2021 M NURSE COORDINATOR Updated 04/07/2021 M NURSE COORDINATOR Updated 04/07/2021 M NURSE COORDINATOR Updated 04/07/2021 M NURSE COORDINATOR Updated 04/07/2021 M NURSE COORDINATOR Updated 04/07/2021 M NURSE COORDINATOR Updated 04/07/2021 M NURSE COORDINATOR Problems Problem Type SNOMED Code ICD Code Onset Dates Problem Status W/U Status Risk Notes Problem Chronic combined systolic and diastolic heart failure (048180664738576 ) 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) Active confirmed Problem COPD - Chronic obstructive pulmonary disease (12650998) Chronic obstructive pulmonary disease, unspecified COPD type (J44.9) Active confirmed Problem Type 2 diabetes mellitus with other specified complication (E11.69) Active confirmed Problem Long-term current use of insulin (570467118) senior living (current) use of insulin (Z79.4) Active confirmed Problem Essential hypertension (34767136) Essential hypertension (I10) Active confirmed Problem 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 (I83.019) Active confirmed Problem Varicose ulcer of left lower leg (disorder) (391859214478676 03) Varicose veins of left lower extremity with ulcer of unspecified site (I83.029) Active confirmed Problem Chronic non-pressure ulcer of calf extending to fat level (655113961490085 01) Non-pressure chronic ulcer of unspecified part of right lower leg with unspecified severity (L97.919) Active confirmed Problem Chronic ulcer of lower extremity (disorder) (52562015) Non-pressure chronic ulcer of unspecified part of left lower leg with unspecified severity (L97.929) Active confirmed Problem Alcohol abuse (40411200) Alcohol abuse (F10.10) Active confirmed Problem Embolism from thrombosis of vein of lower extremity (993355662) Deep vein thrombosis (DVT) of lower extremity, unspecified chronicity, unspecified laterality, unspecified vein (I82.409) Active confirmed Problem Tobacco abuse (6802960258) Tobacco abuse (Z72.0) Active confirmed Problem Varicose ulcer of right calf (disorder) (255579165719230 08) 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) Active confirmed Problem Skin ulcer of calf (530321118) 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) Active confirmed Problem Varicose ulcer of left calf (disorder) (294308756470911 08) Varicose veins of left 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) Active confirmed Problem Skin ulcer of calf (074185219) Non-pressure chronic ulcer of left calf with unspecified severity (L97.229) Active confirmed Plan Of Treatment No Information Insurance Providers Payer Name Payer Address Payer Phone Subscriber Number Group Number Insured Name Patient Relationship to Insured Coverage Start Date Coverage End Date [facility] [address] [place], [place] [id number] Andrew Ruggiero Self - patient is the insured 1 Medical (General) History Medical History History ICD Code Chronic LE wounds Hypertension Combined systolic and diastolic heart fa ilure Diabetes mellitus Hospitalization History Reason Date(Month/Year) [facility]-chest pain and dizziness 03/26/24 heart failure 07/13/2020 [facility] right foot 08/28/2013
--- OUTSIDE RECORDS SUMMARY | 2025-09-18 06:12 | XMS_ITS | Patient Health Record ---
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 Name Role Phone Mina Mueller Primary Care Provider Luis Brambila [phone] Allergies No Known Allergies Reason For Referral No Information Medications Medication SIG (Take, Route, Frequency, Duration) Notes Start Date End Date Status oxyCODONE-Acetaminophen 5-325 MG Tablet 1 tablet as needed Orally twice a day; Duration: 30 days 09/07/2025 10/07/2025 Active Aspirin 81 81 MG Tablet Delayed Release 1 tablet Orally Once a day Active Amiodarone HCl 200 MG Tablet 1 tablet Orally Once a day Active Eliquis 5 MG Tablet as directed Orally Active Jardiance 10 MG Tablet 1 tablet Orally O nce a day Active Folic Acid 1 MG Tablet 1 tablet Orally O nce a day Active oxyCODONE-Acetaminophen 5-325 MG Tablet 1 tablet as needed Orally every 6 hrs Active Metoprolol Tartrate 25 MG Tablet 1 tablet with food Orally Twice a day Active Problems Problem Type SNOMED Code ICD Code Onset Dates Problem Status W/U Status Risk Notes Problem Chronic osteomyelitis (93477478) Other chronic osteomyelitis, unspecified site (M86.60) Active confirmed Problem Amputated below knee (039296160) Acquired absence of left leg below knee (Z89.512) Active confirmed Problem Chronic atrial fibrillation (disorder) (602673283) Chronic atrial fibrillation, unspecified (I48.20) Active confirmed Problem Hyperglycemia due to type 2 diabetes mellitus (965322581450493) Uncontrolled type 2 diabetes mellitus with hyperglycemia (E11.65) Active confirmed Problem Chronic obstructive pulmonary disease (74769587) COPD, moderate (J44.9) Active confirmed Encounters Encounter Location Date Provider Diagnosis [facility] [address] [place] [address] 09/07/2025 Luis Isaac Local infection of the skin and subcutaneous tissue, unspecified L08.9 ; Other chronic osteomyelitis, unspecified site M86.60 ; Other injury of unspecified body region, subsequent encounter T14.8XXD ; Acute embolism and thrombosis of unspecified deep veins of left lower extremity I82.402 ; Acquired absence of left leg below knee Z89.512 ; Chronic atrial fibrillation, unspecified I48.20 ; Uncontrolled type 2 diabetes mellitus with hyperglycemia E11.65 and COPD, moderate J44.9 [facility] [address] [place] [id number] 09/07/2025 Luis Isaac Assessments Encounter Date Diagnosis (ICD Code) Assessment Notes Treatment Notes Treatment Clinical Notes Section Notes 09/07/2025 Local infection of the skin and subcutaneous tissue, unspecified (ICD-10 - L08.9) Medications reviewed, orders signed and documented with nursing staff. Vitals taken and recorded at [facility]. 09/07/2025 Other chronic osteomyelitis, unspecified site (ICD-10 - M86.60) 09/07/2025 Other injury of unspecified body region, subsequent encounter (ICD-10 - T14.8XXD) 09/07/2025 Acute embolism and thrombosis of unspecified deep veins of left lower extremity (ICD-10 - I82.402) 09/07/2025 Acquired absence of left leg below knee (ICD-10 - Z89.512) 09/07/2025 Chronic atrial fibrillation, unspecified (ICD-10 - I48.20) 09/07/2025 Uncontrolled type 2 diabetes mellitus with hyperglycemia (ICD-10 - E11.65) 09/07/2025 COPD, moderate (ICD-10 - J44.9) Plan Of Treatment No Information Medical (General) History Medical History History ICD Code Bacterial skin infection of elbow L08.9 Chronic osteomyelitis M86.60 Contusion of right clavicle, subsequent encounter T14.8XXD Acute deep vein thrombosis (DVT) of left lower extremity, unspecified vein I82.402 Absence of left lower leg below knee Z89 .512 Atrial fibrillation, chronic I48.20 Controlled type 2 diabetes m ellitus with hyperglycemia, unspecified 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
--- NOTE | 2025-09-18 06:40 | ECG_ITS ---
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
[2025-09-18 07:12] LABS: Hematocrit 42.1 % (37-53); Hemoglobin 13.60 g/dL (11.27-16.99); Mean Corpuscular HGB Conc 32.3 g/dL (30-55); Mean Corpuscular Hemoglobin 26.3 pg (27-33); Mean Corpuscular Volume 81.4 fl (82-101); Nucleated Red Blood Cells % 0 %; Platelet Count 158 10^3/cmm (157-399); Red Blood Count 5.17 10^6/uL (3.85-5.65); White Blood Count 5.98 10^3/uL (3.29-11.43)
--- NOTE | 2025-09-18 07:12 | PC.NURSE ---
took over pt care from Montez Fried RN
[2025-09-18 07:25] LABS: Troponin(5th) Baseline 14 ng/L (0-15)
[2025-09-18 08:22] LABS: Alanine Aminotransferase 52 U/L (0-41); Albumin Level 4.2 g/dL (3.5-5.2); Alkaline Phosphatase 120 U/L (40-130); Anion Gap 17.8 (5-19); Aspartate Amino Transferase 32 U/L (0-40); Blood Urea Nitrogen 10 mg/dL (6-20); Calcium 9.1 mg/dL (8.5-10.5); Carbon Dioxide 21 mmol/L (22-29); Chloride 105 mmol/L (98-107); Creatinine Clr Calc Pharmacy 101.6623; Globulin 3.5 g/dL (1.3-4.6); Glucose 146 mg/dL (65-115); Lipase 21 U/L (13-60); Osmolality Calculated 292 mOsm/kg (285-295); Potassium 3.8 mmol/L (3.5-5.1); Sodium 140 mmol/L (136-145); Total Protein 7.7 g/dL (6.6-8.7)
[2025-09-18 08:31] LABS: NT Pro B Type Natriuretic Pept 104 pg/mL (0-125)
== END 2025-09-18 10:55 | disposition home or self-care (01) ==
PROVIDERS: Emergency Medicine; Emergency Provider Emergency Medicine; PCP Family Medicine
DX: R07.9 Chest pain, unspecified (principal); Z79.82 Long term (current) use of aspirin; Z79.01 Long term (current) use of anticoagulants; Z79.4 Long term (current) use of insulin; F17.210 Nicotine dependence, cigarettes, uncomplicated; I11.0 Hypertensive heart disease with heart failure; I50.20 Unspecified systolic (congestive) heart failure; E11.40 Type 2 diabetes mellitus with diabetic neuropathy, unspecified
CPT/HCPCS: 36415; 71045; 80053; 83690; 83880; 84484; 85025; 93005; 99285

== ENCOUNTER → 2025-09-21 12:55 | Day surgery (SDC) | payer MEDICAID, SELFPAY ==
--- NOTE | 2025-09-21 12:14 | XR_ITS ---
WS: [id number] Portable AP upright chest, 09/21/2025 Clinical Data: PICC not flushing. CXR for PICC tip location Comparison: Portable chest, 09/18/2025 Findings: The PICC line appears to end at the level of the aortic arch and at the superior aspect of the right seventh rib in the SVC. The remainder of the chest shows no change. XR/XR chest 1V portable 13249 Impression: PICC line ends in SVC, no change from 3 days ago.
[2025-09-21] MEDS: alteplase 1 mg/mL SDV 2 mL 2 MG INTRACATH (13:11)
[2025-09-21 13:31] VITALS: BP 135/91; PULSE 67; RESP 18; TEMP 36.9; O2SAT 96
--- NOTE | 2025-09-21 13:39 | PICC.NOTE ---
Pt to GI lab to have PICC assessed. retirement reports difficulty flushing. PICC flushed without difficulty 10 mL NS. CXR shows PICC in SVC. 2 mL alteplase administered for dwell. Will reassess in 30 minutes.
--- NOTE | 2025-09-21 13:49 | PICC.NOTE ---
Unable to flush or draw back on PICC at this time. PICC appears to be positional. half-way states sometimes PICC flushes and sometimes not. CXR does not confirm tip in distal SVC, so PICC to be replaced.
--- NOTE | 2025-09-21 13:59 | XR_ITS ---
WS: [id number] Portable AP upright chest, 09/21/2025, 1424 hours Clinical Data: Post PICC replacement Comparison: Portable chest, 09/21/2025, 1309 hours Findings: The right PICC line has been replaced and now ends at the caval atrial junction. XR/XR chest 1V portable [id number] Impression: Satisfactory placement of right PICC line ending at the caval atrial junction.
--- NOTE | 2025-09-21 14:50 | PICC.NOTE ---
Single lumen PICC replaced to right basilic vein using [id number]-[id number] technique. Referred to vascular access nurse due to prison being unable to flush PICC at times. PICC assessed. Sterile dressing change performed. Insertion site clean, dry, and intact without signs and symptoms of infection. Slight irritation from adhesive noted around Sorbaview shield with skin being slightly reddened. On initial assessment, PICC flushed without difficulty, but unable to get blood return. Tpa administered per protocol. During dwell, pt asked to use urinal. Pt assisted to stretcher, where he lied down to urinate into urinal. Pt assisted back to wheelchair. After 30 min dwell, attempted to pull back on PICC for blood return. No blood return noted, and at this time, unable to flush as well. CXR from today shows PICC tip to be in SVC, but not in optimal position. Pt with pacemaker to left chest and ORIF with plates and screws to left clavicle. Probability of successful PICC placement to left arm low. Discussed options with patient. Pt would like to proceed with [id number]-[id number] exchange of current PICC line. Risks and benefits discussed and informed consent obtained from pt. Right arm assessed with right basilic vein without evidence of thrombis with ultrasound assessment. Insertion site without evidence of bruising, bleeding, or infection. Using sterile technique, pnex-rns-vcvr exchange performed. Mid-arm circumference measured 10 cm from right AC 28 cm. Trimmed cath 41 cm with 0 cm external length noted. CXR shows tip in cavoatrial junction, in good position for use per radiologist. Previous line removed noted at 38 cm in length. New line secured with stat-lock. Insertion site covered with Biopatch and TSM. Report called to Starla at [facility].
== END ==
PROVIDERS: PCP Internal Medicine; Visit Provider Internal Medicine
DX: Z45.2 Encounter for adjustment and management of vascular access device (principal)
CPT/HCPCS: 36573; 36593; 71045; J2997